=== PATIENT | male | born 1950 ===

== ENCOUNTER 2020-08-19 12:02 | Outpatient (REF) | payer MEDICARE, OTHER, SELFPAY ==
[2020-08-19 13:48] LABS: MANUAL DIFF FLAG NO
[2020-08-19 13:51] LABS: Creatinine Urine 95.04 mg/dL; Microalbum/Creatinine Ratio Ur 45.2 ug/mg cr
[2020-08-19 13:54] LABS: Basophils Percent Auto 0.5 % (0-2); Eosinophils Absolute Auto 0.1 X10*3/uL (0.0-0.4); Eosinophils Percent Auto 1.5 % (0-4); Hematocrit 41.6 % (42-52); Hemoglobin 13.5 g/dl (14.0-18.0); Imm Gran Abs Auto 0.02 X10*3/uL (0.00-0.03); Imm Gran Pct Auto 0.3 % (0.0-0.4); Lymphocytes Absolute Auto 2.1 X10*3/uL (1.2-4.9); Mean Corpuscular HGB Conc 32.5 g/dl (31.0-36.0); Mean Corpuscular Hemoglobin 29.1 pg (27.0-33.0); Mean Corpuscular Volume 89.7 fL (80-98); Mean Platelet Volume 10.7 fL (9.4-12.4); Monocytes Absolute Auto 0.6 X10*3/uL (0.1-1.2); Monocytes Percent Auto 9.2 % (2-11); Neutrophils Absolute Auto 3.7 X10*3/uL (2.0-8.3); Neutrophils Percent Auto 56.5 % (45-73); Platelet Count 288 X10*3/uL (160-400); Red Blood Count 4.64 X10*6/uL (4.60-5.80); Red Cell Distribution Width 13.3 % (11.0-16.0); White Blood Count 6.5 X10*3/uL (4.8-10.8)
[2020-08-19 14:31] LABS: Alanine Aminotransferase 29 U/L (0-40); Albumin Level 4.3 g/dL (3.5-5.0); Alkaline Phosphatase 187 U/L (39-117); Anion Gap 13 (12-20); Aspartate Amino Transferase 20 U/L (5-37); Bilirubin Total 0.5 mg/dL (0.0-1.0); Blood Urea Nitrogen 9 mg/dL (9-16); Calcium 9.3 mg/dL (8.4-10.2); Carbon Dioxide 25 mmol/L (22-29); Chloride 106 mmol/L (96-108); Cholesterol 134 mg/dL; Estimated Glomerular Filt Rate > 60; Glucose Random 222 mg/dL (60-115); HDL Cholesterol 34 mg/dL; LDL Cholesterol Calculated 78 mg/dl; Potassium 4.2 mmol/l (3.3-5.1); Sodium 140 mmol/L (135-145); Total Protein 7.3 g/dL (6.5-8.0); Triglycerides 113 mg/dL
[2020-08-19 14:53] LABS: Vitamin B12 419 pg/mL (200-900)
[2020-08-19 14:54] LABS: Vitamin D 25-OH Total 40.7 ng/mL (>30)
[2020-08-20 21:46] LABS: LDL Cholesterol Direct 78 mg/dL (<100)
== END 2020-08-19 12:03 | disposition home or self-care (01) ==
LOC: HO.10HDL 12:02
PROVIDERS: Visit Provider Internal Medicine Endocrinology, Diabetes & Metabolism
DX: E11.42 Type 2 diabetes mellitus with diabetic polyneuropathy (principal)
CPT/HCPCS: 36415; 80053; 80061; 82043; 82306; 82607; 83721; 85025

== ENCOUNTER → 2020-08-22 11:06 | Outpatient (BNVA) | payer MEDICARE, OTHER, SELFPAY | PROVIDERS: PCP Internal Medicine; Referring Provider Internal Medicine; Visit Provider Internal Medicine Endocrinology, Diabetes & Metabolism | DX: E11.65 Type 2 diabetes mellitus with hyperglycemia (principal); E11.21 Type 2 diabetes mellitus with diabetic nephropathy; E11.40 Type 2 diabetes mellitus with diabetic neuropathy, unspecified; E11.319 Type 2 diabetes mellitus with unspecified diabetic retinopathy without macular edema; Z79.4 Long term (current) use of insulin; I10 Essential (primary) hypertension; E55.9 Vitamin D deficiency, unspecified; E78.5 Hyperlipidemia, unspecified; Z89.512 Acquired absence of left leg below knee | CPT/HCPCS: 82947; 99214 ==

== ENCOUNTER → 2020-10-27 16:00 | Outpatient (BNV) | payer MEDICARE, OTHER, SELFPAY | PROVIDERS: Visit Provider Internal Medicine Medical Oncology | DX: C15.5 Malignant neoplasm of lower third of esophagus (principal) | CPT/HCPCS: 99214; 99443 ==

== ENCOUNTER → 2020-11-24 08:13 | Outpatient (BNVA) | payer MEDICARE, OTHER, SELFPAY | PROVIDERS: PCP Internal Medicine; Referring Provider Internal Medicine; Visit Provider Internal Medicine Endocrinology, Diabetes & Metabolism | DX: Z76.89 Persons encountering health services in other specified circumstances (principal) | CPT/HCPCS: Q3014 ==

== ENCOUNTER → 2021-03-30 09:46 | Outpatient (BNVA) | payer MEDICARE, OTHER, SELFPAY | PROVIDERS: PCP Internal Medicine; Visit Provider Internal Medicine Endocrinology, Diabetes & Metabolism | DX: E11.65 Type 2 diabetes mellitus with hyperglycemia (principal); E11.40 Type 2 diabetes mellitus with diabetic neuropathy, unspecified; E11.21 Type 2 diabetes mellitus with diabetic nephropathy; Z79.4 Long term (current) use of insulin; I10 Essential (primary) hypertension; E55.9 Vitamin D deficiency, unspecified; E78.5 Hyperlipidemia, unspecified; Z89.512 Acquired absence of left leg below knee | CPT/HCPCS: 82947; 99212 ==

== ENCOUNTER → 2021-07-06 09:57 | Outpatient (BNVA) | payer MEDICARE, OTHER, SELFPAY | PROVIDERS: PCP Internal Medicine; Visit Provider Internal Medicine | DX: E11.65 Type 2 diabetes mellitus with hyperglycemia (principal); Z79.4 Long term (current) use of insulin; E78.5 Hyperlipidemia, unspecified; I10 Essential (primary) hypertension; E55.9 Vitamin D deficiency, unspecified | CPT/HCPCS: 82947; 99212 ==

== ENCOUNTER 2021-10-07 09:32 | Outpatient (REF) | payer MEDICARE, OTHER, SELFPAY ==
--- NOTE | ~2021-10-07 | CT_ITS ---
EXAMINATION: CT CHEST WITH CONTRAST CLINICAL INFORMATION: Esophageal cancer COMPARISON: Previous chest CT scans most recent January 2020 TECHNIQUE: Multidetector volumetric CT imaging of the chest was obtained after the administration of 65 mL of Omnipaque 350 intravenous contrast without immediate adverse reactions. Axial MIP volume rendering provided. Sagittal and coronal reformatted images were obtained. This CT examination was performed using dose optimization techniques as appropriate, variously including the following: *Automated exposure control *Adjustment of mA and/or kV according to patient size (this includes techniques or standardized protocols for targeted exams where dose is matched to indication/reason for exam; i.e. extremities or head) *Use of iterative reconstruction technique DLP: 266 mGy-cm FINDINGS: LUNGS: Evaluation of the lungs is limited due to artifact from respiratory motion. There is a 3 mm calcified right upper lobe nodule axial image 108 series 5 that is stable. Other pulmonary nodules are not identified MEDIASTINUM: There is wall thickening of the distal thoracic esophagus and proximal/GE junction region and proximal stomach. This appears increased from previous exam. No enlarged lymph nodes are seen. The heart size is normal. There is coronary artery calcification. There is no pericardial effusion. PLEURA: There is no pleural effusion. No pleural mass or thickening. AXILLA: No lymphadenopathy. UPPER ABDOMEN: Wall thickening of the GE junction/proximal stomach. Atrophic changes of the pancreas. OSSEOUS STRUCTURES: There are degenerative changes of the spine. CT/CT chest w con IMPRESSION: Limited evaluation of pulmonary nodules due to artifact from respiratory motion. The 3 mm calcified right upper lobe nodule is stable. Other previously identified pulmonary nodules are not identified. Interval increase in wall thickening of the distal thoracic esophagus, GE junction and proximal stomach compared to January 2020 exam. Fleischner guidelines were followed.
[2021-10-07] MEDS: iohexoL 350 MG/ML 100 ML INFUS..BTL IV (10:56)
== END 2021-10-07 09:33 | disposition home or self-care (01) ==
LOC: HO.CT 09:32
PROVIDERS: Visit Provider Internal Medicine Medical Oncology
DX: C15.4 Malignant neoplasm of middle third of esophagus (principal)
CPT/HCPCS: 71260; Q9967

== ENCOUNTER 2021-11-17 07:51 | Day surgery (SDC) | payer MEDICARE, SELFPAY ==
[2021-11-16 07:46] VITALS: BMI 23.6
--- NOTE | 2021-11-16 09:01 | HO.ANESPROP2 ---
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 (Acute) Diabetic neuropathy (Acute) Benign essential hypertension (Acute) Type 2 diabetes mellitus with diabetic polyneuropathy (Acute) Keratotic lesion (Acute) Carcinoma of thoracic esophagus (Acute) Dyslipidemia (Acute) Vitamin D deficiency (Acute) 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 below-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 (Acute) Diabetic neuropathy associated with type 2 diabetes mellitus (Acute) Hypertension (Acute) Diabetic nephropathy associated with type 2 diabetes mellitus (Acute) Diabetes type 2, uncontrolled (Acute) Past Medical History Medical History Adenocarcinoma of cardio-esophageal junction Anxiety Benign essential hypertension Constipation Depression Diabetes type 2, uncontrolled Diabetic nephropathy associated with type 2 diabetes mellitus Diabetic neuropathy Diabetic neuropathy associated with type 2 diabetes mellitus Dyslipidemia HLD (hyperlipidemia) Hypertension Keratotic lesion Left below-knee amputee [employer]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 Surgical History Surgical History History of atherectomy History of left below knee amputation Status post below-knee amputation of left lower extremity Social History Social History Housing: Condominium Alcohol intake: former Patient Tobacco Use Status: Never used Tobacco Second Hand Smoke Exposure: Yes Advance Directives: Yes Advance Directives on File: Yes Advance Directives Date on File: 08/19/20 service: No Current occupational status: retired and disabled Meds Allergies Allergy/AdvReac Type Severity Reaction Status Date / Time No Known Allergies Allergy Verified 10/26/21 11:05 Home Medications Medication Instructions Recorded Confirmed Last Taken Type insulin aspar prot-insulin aspart See Rx Instructions SUBCUT BID ml 07/06/21 10/26/21 Unknown History 100 unit/mL (70-30) subcutaneous pen (Novolog Mix 70-30FlexPen U-100) Exam Exam Date and Time: November 16, 2021 0901 Height,Weight and Vital Signs: Height 5 ft 8 in Weight 70.307 kg Pertinent Lab Results Pertinent Lab Results: Laboratory Tests 09/28/21 09/28/21 09:27 09:27 WBC 11.0 H Hgb 13.9 L Hct 43.5 Plt Count 432 H Sodium 138 Potassium 4.6 Chloride 101 Carbon Dioxide 25 BUN 11 Creatinine 0.89 Assessment and Plan Assessment Anesthesia Assessment: Chart Reviewed Documented by User: Isabell Rodgers MD 11/17/21 08:04 [facility] Past Medical History Medical History Adenocarcinoma of cardio-esophageal junction Anxiety Benign essential hypertension Constipation Depression Diabetes type 2, uncontrolled Diabetic nephropathy associated with type 2 diabetes mellitus Diabetic neuropathy Diabetic neuropathy associated with type 2 diabetes mellitus Dyslipidemia HLD (hyperlipidemia) Hypertension Keratotic lesion Left below-knee amputee 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 Family history of problems with anesthesia: No Surgical History Surgical History History of atherectomy History of left below knee amputation Status post below-knee amputation of left lower extremity History of Problems with Anesthesia: No Social History Social History Housing: Condominium Alcohol intake: former Patient Tobacco Use Status: Never used Tobacco Second Hand Smoke Exposure: Yes Advance Directives: Yes Advance Directives on File: Yes Advance Directives Date on File: 08/19/20 service: No Current occupational status: retired and disabled Meds Allergies Allergy/AdvReac Type Severity Reaction Status Date / Time No Known Allergies Allergy Verified 10/26/21 11:05 Home Medications Medication Instructions Recorded Confirmed Last Taken Type insulin aspar prot-insulin aspart See Rx Instructions SUBCUT BID ml 07/06/21 10/26/21 Unknown History 100 unit/mL (70-30) subcutaneous pen (Novolog Mix 70-30FlexPen U-100) Exam Airway Mallampati Class: II TM Dist: >3cm Neck ROM: Full Heart: RRR Lungs: CTA Assessment and Plan Final Anesthetic Review Family History of Problems with Anesthesia: No History of Problems with Anesthesia: No NPO: Yes ASA Class: III Final Preanesthetic Review: No Changes in Pt Med Stat, Meds/Allgs Chart Reviewed, Consent Obtained/Reviewed and Anes Risks/Benef Reviewed Patient Risk: Low Procedure Risk: Low Anesthetic Plan Anesthetic Plan: MAC: Disposition: Standard PACU
[2021-11-17 07:59] VITALS: BP 114/74; PULSE 112; RESP 18; TEMP 36.1; O2SAT 97
[2021-11-17 08:08] LABS: Glucose, Whole Blood 153 mg/dL (60-115)
[2021-11-17] MEDS: Lactated Ringers 1,000 ML 100 ML IVCONT (08:23)
--- NOTE | 2021-11-17 08:42 | MHC.SHP ---
Pre-Procedural Eval Section A Date of Service: 11/17/21 The patient is an INPATIENT: No Changes since office visit: No Cold of Flu in the past 2 weeks, No New Medical Problems, No Changes in Medication and No Patient answered all questions The History & Physical has been completed within 30 days and I have reviewed it.: Yes Section B Chief Complaint: abnormal findings Allergies: Allergies Allergy/AdvReac Type Severity Reaction Status Date / Time No Known Allergies Allergy Verified 10/26/21 11:05 Plan I have reviewed the history and physical and performed a pertinent physical examination on my patient. No changes have occurred unless specified.
[2021-11-17 09:10] VITALS: BP 95/55; PULSE 83; RESP 16; TEMP 36.2; O2SAT 99
--- NOTE | 2021-11-17 09:11 | PM.OP ---
Brief Operative Note Date of Service: 11/17/21 Pre-op diagnosis: abnl ct, adenoca esophagus Post-op diagnosis: same Procedure: EGD Surgeon: Tahir Mancini Was an Magician/Illusionist used for this Procedure?: No Estimated blood loss (mL): 5 Pathology: other (bxs egj mass, 36cm, 34 cm) Condition: stable Disposition: PACU
[2021-11-17 09:25] VITALS: BP 129/79; PULSE 94; RESP 17; TEMP 36.2; O2SAT 97
--- NOTE | 2021-11-17 09:59 | OP_ITS ---
SURGEON: Tahir Mancini MD INDICATIONS: Abnormal CT scan of the esophagus and history of esophageal adenocarcinoma. PREOPERATIVE DIAGNOSIS: POSTOPERATIVE DIAGNOSIS: PROCEDURE PERFORMED: ESTIMATED BLOOD LOSS: COMPLICATIONS: ANESTHESIA: ASSISTANTS: SPECIMENS: PROCEDURE: Upper endoscopy with biopsy. MEDICATIONS: Monitored anesthesia care. DESCRIPTION OF PROCEDURE: History and physical was performed. The risks and benefits of the procedure were explained to the patient. Informed consent was obtained. The patient was placed in the left lateral decubitus position. The Olympus video gastroscope was introduced into the esophagus, stomach, and duodenum. Examination was performed. The scope was removed. He tolerated the procedure well and was taken to Recovery in stable condition. FINDINGS: Esophagus: There was ulceration and friability with heaped up mucosa beginning at about 34 cm and extending to the EG junction at 36 cm and into the stomach for approximately 1 cm to 2 cm below this. Biopsies were obtained from the abnormal mucosa. The mucosa was ulcerated and friable with heaped up margins suspicious for recurrent tumor as opposed to just changes from his previous chemoradiation treatments. The scope was easily passed into the stomach with minimal narrowing at the EG junction. Stomach: The stomach showed no evidence of masses, ulcers, or polyps. Duodenum: The bulb and second portion were normal. Biopsies were obtained on retroflexed view from the mass at the EG junction extending into the stomach and at 36 and 34 cm. IMPRESSION: 1. Abnormal CT scan of the esophagus. 2. Esophageal adenocarcinoma. RECOMMENDATION: Follow up the biopsy results. MD PATRICA Ortega/LUÍS / [id number]
--- NOTE | 2021-11-17 12:51 | HO.POSTANES ---
Post Anesthesia Evaluation Post Anesthesia Evaluation Vital Signs: Vital Signs Temp Pulse Resp BP Pulse Ox 11/17/21 09:25 97.2 F 94 17 129/79 97 11/17/21 09:10 97.2 F 83 16 95/55 L 99 11/17/21 07:59 97 F 112 H 18 114/74 97 Anesthesia: Monitored Mental Status: Awake Pain Control: Satisfactory Nausea/Vomiting: None Hydration: Adequate Anesthesia-Related Issues: No Anes. Related Issues
== END 2021-11-17 10:40 | disposition home or self-care (01) ==
PROVIDERS: Visit Provider Internal Medicine Gastroenterology
PROC: 0DJ08ZZ Inspection of Upper Intestinal Tract, Via Natural or Artificial Opening Endoscopic (ICD-10-PCS; CPT 43235; principal; 2021-11-17 08:50)
DX: C15.8 Malignant neoplasm of overlapping sites of esophagus (principal); Z85.01 Personal history of malignant neoplasm of esophagus; Z92.21 Personal history of antineoplastic chemotherapy; Z92.3 Personal history of irradiation; Z77.22 Contact with and (suspected) exposure to environmental tobacco smoke (acute) (chronic); K21.9 Gastro-esophageal reflux disease without esophagitis; I10 Essential (primary) hypertension; I73.9 Peripheral vascular disease, unspecified; E11.40 Type 2 diabetes mellitus with diabetic neuropathy, unspecified; E11.21 Type 2 diabetes mellitus with diabetic nephropathy; E55.9 Vitamin D deficiency, unspecified; Z79.4 Long term (current) use of insulin; Z79.899 Other long term (current) drug therapy; Z89.512 Acquired absence of left leg below knee
CPT/HCPCS: 43239; 36415; 82947; 88305; 88360

== ENCOUNTER → 2021-11-27 10:44 | Outpatient (BNVA) | payer MEDICARE, SELFPAY | PROVIDERS: PCP Internal Medicine; Visit Provider Surgery | DX: C16.0 Malignant neoplasm of cardia (principal); Z79.899 Other long term (current) drug therapy; Z79.4 Long term (current) use of insulin | CPT/HCPCS: 99212 ==

== ENCOUNTER 2021-12-03 06:52 | Day surgery (SDC) | payer MEDICARE, SELFPAY ==
--- NOTE | ~2021-12-03 | IR_ITS ---
PROCEDURE: IR INSERTION OF TUNNEL CATHETER CLINICAL INFORMATION: Carcinoma of the esophagus. Needs long-term chemotherapy. COMPARISON: None TECHNIQUE: Following explaining fluoroscopy and ultrasound-guided tunnel catheter placement of the right Port-A-Cath procedure, benefits and risks, a written consent was obtained. Preliminary ultrasound imaging was obtained through the right neck and optimal site was selected along the lower right anterolateral neck and marked. The marked site and the anterior chest wall right side was cleaned and draped in the usual sterile manner. 1% lidocaine was injected along the right anterior neck. Under sterile ultrasound guidance a single wall needle was advanced and right jugular vein was punctured. After obtaining venous return a thin guidewire was obtained through the single wall needle and needle withdrawn. A 5 Canadian dilator was inserted over the guidewire. The guidewire and the dilator were anchored to the patient's sterile drape. Approximately 1 gauze-length inferolaterally along the right anterior chest wall was marked and 1% lidocaine was injected. A small skin incision was performed and blunt dissection was performed inferior to the skin incision. A Port-A-Cath placement trial into the pocket was performed. More blunt dissection was performed. The port chamber was then anchored in the pocket with two 2-0 nonabsorbable nylon sutures. 1% lidocaine was then inserted from the dissected pocket to the right anterior neck chest wall through a long needle. A blunt tunneler attached to the catheter which was attached to the port chamber was then tunneled through the right anterior chest wall to the right anterior neck incision and pulled through the right anterior neck incision. This catheter was sized to 20 cm long. The guidewire along the right neck was removed and a 0.035 J-wire was inserted under fluoroscopy and extending to the IVC and the 5 Canadian dilator was removed. A 7 Canadian dilator with peel-away sheath was inserted over the guidewire under fluoroscopy. The guidewire and the dilator were removed and precut catheter was inserted through the peel-away sheath. The peel-away sheath was removed as the catheter was advanced. The peel-away sheath was completely removed and a single image was obtained over the right anterior chest wall confirming position of the catheter tip. The Port-A-Cath was flushed with saline before insertion and after incision. Lastly 400 units of heparin was injected through the port chamber. The chest wall incision was sutured in two layers with 3-0 absorbable sutures along the subcutaneous/adipose tissue and skin layer. A Dermabond was applied over the skin for more adhesion of the skin suture site. A solitary 3-0 nonabsorbable suture was placed along the right anterior neck incision. Sterile Band-Aid applied postprocedure at both sites. Patient tolerated procedure extremely well. IV conscious sedation was administered during the exam and patient monitored for 45 minutes. All elements of maximal sterile barrier technique followed including use of cap, mask, sterile gown, sterile gloves, a sterile full body drape and hand hygiene. Also followed skin preparation with 2% chlorhexidine for cutaneous antisepsis, and sterile ultrasound preparation with sterile gel and probe cover when applicable. FINDINGS: On preliminary ultrasound imaging there is a widely patent right jugular vein. Approximately 21 cm along 6.6 Canadian tunneled port catheter was inserted from the right anterior chest wall through the right jugular vein into the SVC. The tip of the catheter lies in the mid SVC. 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 The catheter is ready for use. Fluoroscopy Time: 0.6 minutes. Dose Area Product: 118 cGy/cm2
[2021-12-03 07:13] VITALS: BMI 22.0
[2021-12-03 07:18] LABS: MANUAL DIFF FLAG NO
[2021-12-03 07:20] LABS: Basophils Percent Auto 0.3 % (0-2); Eosinophils Absolute Auto 0.2 X10*3/uL (0.0-0.4); Hematocrit 40.6 % (42.0-52.0); Hemoglobin 12.7 g/dl (14.0-18.0); Imm Gran Abs Auto 0.02 X10*3/uL (0.00-0.03); Imm Gran Pct Auto 0.2 % (0.0-0.4); Lymphocytes Absolute Auto 3.8 X10*3/uL (1.2-4.9); Lymphocytes Percent Auto 37.9 % (20-40); Mean Corpuscular HGB Conc 31.3 g/dl (31.0-36.0); Mean Corpuscular Hemoglobin 27.4 pg (27.0-33.0); Mean Corpuscular Volume 87.5 fL (80.0-98.0); Mean Platelet Volume 9.6 fL (9.4-12.4); Monocytes Absolute Auto 0.9 X10*3/uL (0.1-1.2); Monocytes Percent Auto 9.2 % (2-11); Neutrophils Absolute Auto 5.1 x10*3/uL (2.0-8.3); Neutrophils Percent Auto 50.4 % (45-73); Platelet Count 452 X10*3/uL (160-400); Red Blood Count 4.64 X10*6/uL (4.60-5.80); Red Cell Distribution Width 14.5 % (11.0-16.0)
[2021-12-03 07:38] LABS: INTERNATIONAL NORM RATIO 1.2 (0.9-1.1); Prothrombin Time 13.8 SEC (9.9-13.0)
[2021-12-03 07:38] LABS: Glucose, Whole Blood 174 mg/dL (60-115)
[2021-12-03 07:41] LABS: Partial Thromboplastin Time 32.1 SEC (24.1-38.0)
[2021-12-03] MEDS: Lidocaine HCl 1%/Epi 1:100,000 20 ML VIAL 10 ML INFILTRATI (09:40)
[2021-12-03 10:25] VITALS: BP 123/71; PULSE 93; RESP 16; TEMP 36.6; O2SAT 99
[2021-12-03 10:40] VITALS: BP 106/61; PULSE 94; RESP 16; O2SAT 99
[2021-12-03 10:55] VITALS: BP 113/61; PULSE 93; RESP 16; O2SAT 99
[2021-12-03 11:20] VITALS: BP 121/69; PULSE 93; RESP 16; O2SAT 99
[2021-12-03 11:50] VITALS: BP 121/69; PULSE 94; RESP 16; TEMP 36.6; O2SAT 99
== END 2021-12-03 12:11 | disposition home or self-care (01) ==
PROVIDERS: Radiology Diagnostic Radiology; Visit Provider Radiology Diagnostic Radiology
DX: Z45.2 Encounter for adjustment and management of vascular access device (principal); C15.4 Malignant neoplasm of middle third of esophagus; R91.1 Solitary pulmonary nodule; I10 Essential (primary) hypertension; E55.9 Vitamin D deficiency, unspecified; E78.5 Hyperlipidemia, unspecified; E11.21 Type 2 diabetes mellitus with diabetic nephropathy; E11.42 Type 2 diabetes mellitus with diabetic polyneuropathy; Z79.4 Long term (current) use of insulin; Z79.899 Other long term (current) drug therapy; Z89.512 Acquired absence of left leg below knee
CPT/HCPCS: 36415; 36561; 76937; 82947; 85025; 85610; 85730; 99152; 99153; C1769; C1788; J0690; J1642; J2250; J3010

== ENCOUNTER 2022-01-01 09:37 | Outpatient (REF) | payer MEDICARE, SELFPAY ==
[2022-01-01 10:44] LABS: Estimated Average Glucose 200 mg/dL; Hemoglobin A1c % 8.6 %
[2022-01-01 11:02] LABS: Alanine Aminotransferase 63 U/L (0-40); Albumin Level 3.8 g/dL (3.5-5.0); Alkaline Phosphatase 180 U/L (39-117); Anion Gap 13 (12-20); Aspartate Amino Transferase 56 U/L (5-37); Bilirubin Total 0.7 mg/dL (0.0-1.0); Blood Urea Nitrogen 10 mg/dL (9-16); Calcium 9.3 mg/dL (8.4-10.2); Carbon Dioxide 29 mmol/L (22-29); Chloride 103 mmol/L (96-108); Cholesterol 168 mg/dL; Estimated Glomerular Filt Rate > 60; Glucose Random 221 mg/dL (60-115); HDL Cholesterol 40 mg/dL; LDL Cholesterol Calculated 107 mg/dl; Potassium 4.5 mmol/L (3.3-5.1); Sodium 140 mmol/L (135-145); Triglycerides 105 mg/dL
[2022-01-01 11:17] LABS: Creatinine Urine 70.37 mg/dL
[2022-01-01 11:25] LABS: Vitamin D 25-OH Total 52.2 ng/mL (>30)
[2022-01-03 03:02] LABS: LDL Cholesterol Direct 105 mg/dL (<100)
== END 2022-01-01 09:38 | disposition home or self-care (01) ==
LOC: HO.LAB 09:37
PROVIDERS: PCP Internal Medicine; Visit Provider Internal Medicine
DX: E11.65 Type 2 diabetes mellitus with hyperglycemia (principal); E55.9 Vitamin D deficiency, unspecified
CPT/HCPCS: 36415; 80053; 80061; 82043; 82306; 83036; 83721

== ENCOUNTER 2022-01-17 12:50 | Inpatient (IN) | payer MEDICARE, SELFPAY ==
--- NOTE | ~2022-01-17 | XR_ITS ---
EXAMINATION: XR CHEST CLINICAL INFORMATION: Sepsis COMPARISON: CT chest 10/07/2021, chest radiograph 08/17/2019, PET/CT 06/07/2019 TECHNIQUE: Frontal view of the chest was obtained. FINDINGS: A new right chest wall IJ port is present with its tip in the SVC. There is a rounded area of calcification seen overlying the right lateral neck which may be related to rotator cuff calcification which can be appreciated on the prior PET/CT. No significant abnormality is noted involving the heart, lungs, mediastinum, bony thorax or soft tissues to account for the patient's sepsis. XR/XR chest 1V IMPRESSION: No acute intrathoracic disease.
[2022-01-17 13:07] VITALS: BP 118/76; PULSE 129; RESP 20; TEMP 37.5; O2SAT 98; BMI 22.6
--- NOTE | 2022-01-17 13:30 | ECG_ITS ---
Test Reason : chest discomfort Blood Pressure : / mmHG Vent. Rate : 120 BPM Atrial Rate : 120 BPM P-R Int : 128 ms QRS Dur : 078 ms QT Int : 304 ms P-R-T Axes : 080 -09 120 degrees QTc Int : 429 ms Sinus tachycardia Low voltage QRS Inferior infarct , age undetermined Possible Anterolateral infarct , age undetermined Nonspecific ST elevation Anteroseptal leads Nonspecific ST abnormality Abnormal ECG When compared with ECG of 08-SEP-2019 19:13, Inferior infarct is now Present Nonspecific T wave abnormality has replaced inverted T waves in Inferior leads Referred By: Lisa Blas Electronically Signed By:PAOLA SWARTZ MD
--- NOTE | 2022-01-17 14:03 | ED_ITS ---
HPI - General Adult General Chief complaint: General Medical Stated complaint: uti Time Seen by Provider: 01/17/22 13:01 Source: patient, family and manufacturing worker Mode of arrival: wheelchair Limitations: language barrier History of Present Illness HPI narrative: 71-year-old male with a history of high cholesterol, depression, anxiety, constipation, hypertension, diabetes, known recurrent esophageal cancer being followed by Dr. Anna currently receiving chemotherapy every other week (folfox-last dose 01/12) here with reports of dysuria, urine dribbling small amounts since last evening. Patient denies any fevers, chills, vomiting, abdominal pain, back pain, weakness. Related Data Home Medications Medication Instructions Recorded Confirmed insulin aspar prot-insulin aspart 30 unit SUBCUT DAILY@0730 ml 07/06/21 01/17/22 100 unit/mL (70-30) subcutaneous pen (Novolog Mix 70-30FlexPen U-100) atorvastatin 40 mg tablet 40 mg PO BEDTIME 01/17/22 01/17/22 docusate sodium 100 mg capsule 200 mg PO BEDTIME 01/17/22 01/17/22 insulin aspar prot-insulin aspart 22 unit SUBCUT DAILY@1700 01/17/22 01/17/22 100 unit/mL (70-30) subcutaneous pen (Novolog Mix 70-30FlexPen U-100) losartan 100 mg tablet 100 mg PO BEDTIME 01/17/22 01/17/22 omeprazole 20 mg capsule,delayed 20 mg PO BID@0630,1630 01/17/22 01/17/22 release Previous Rx's Medication Instructions Recorded blood sugar diagnostic (FreeStyle #25 ea 08/22/20 Precision Octavio Strips) flash glucose scanning reader #1 ea 08/22/20 (FreeStyle [place] 2 [place]) metoprolol succinate 25 mg 12.5 mg PO DAILY 90 Days #45 tab 02/24/21 tablet,extended release 24 hr flash glucose sensor (FreeStyle #2 ea 03/30/21 Ante 2 Sensor) cholecalciferol (vitamin D3) 25 25 mcg PO DAILY 90 Days #90 cap 06/09/21 mcg (1,000 unit) capsule (Vitamin D3) ferrous sulfate 325 mg (65 mg 325 mg PO DAILY 90 Days #90 tab 06/09/21 iron) tablet lancets 33 gauge (TRUEplus Lancets) #100 ea 06/10/21 pen needle, diabetic 32 gauge x #100 ea 06/10/21 (Pentips) blood sugar diagnostic (FreeStyle #150 ea 06/16/21 Lite Strips) lancets 28 gauge (FreeStyle #200 ea 06/16/21 Lancets) metformin 500 mg tablet,extended 1,000 mg PO BID 30 Days #120 tab 07/06/21 release 24 hr mirtazapine 30 mg tablet 30 mg PO BEDTIME #90 tab 08/24/21 tramadol 50 mg tablet 50 mg PO Q6-8H PRN 30 Days #120 tab 11/16/21 gabapentin 100 mg capsule 200 mg PO BEDTIME #180 cap 11/23/21 ondansetron 8 mg disintegrating 8 mg PO Q8H PRN #60 tab 12/10/21 tablet lorazepam 0.5 mg tablet 0.5 mg PO Q8H PRN 30 Days #90 tab 12/11/21 Allergies Allergy/AdvReac Type Severity Reaction Status Date / Time No Known Allergies Allergy Verified 01/17/22 13:12 Review of Systems Review of Systems: Yes all other systems are reviewed and are negative Constitutional: Constitutional: Reports no additional constitutional complaints, Denies body ache(s), Denies chills, Denies fever(s), Denies headache(s) and Denies weakness Eyes: Eyes: Reports no additional eye complaints and Denies change in vision ENT: Reports system reviewed and no additional complaints, except as documented, Denies dizziness, Denies headache(s), Denies nasal congestion, Denies nasal discharge and Denies neck pain Cardiovascular: Cardiovascular: Reports no additional cardiovascular complaints, Denies chest pain, Denies leg edema and Denies dyspnea Respiratory: Respiratory: Reports no additional respiratory complaints, Denies cough and Denies dyspnea Gastrointestinal: Gastrointestinal: Reports no additional gastrointestinal complaints, Denies abdominal pain, Denies diarrhea, Denies nausea and Denies vomiting Genitourinary: Genitourinary: Reports difficulty urinating, Reports dysuria, Denies flank pain, Denies testicular pain, Reports urinary hesitancy, Denies urinary incontinence and Denies urinary urgency Musculoskeletal: Musculoskeletal: Reports no additional musculoskeletal complaints, Denies back pain, Denies arthralgias, Denies joint swelling, Denies neck pain, Denies numbness and Denies tingling Integumentary/Breasts: Skin/Breast: Reports system reviewed and no additional complaints, except as docu and Denies rash Neurologic: Reports system reviewed and no additional complaints, except as documented, Denies dizziness, Denies headache(s), Denies numbness, Denies tingling and Denies weakness PMFSH Past Medical History Attestation statement: The following information was validated with the patient. Source: old records reviewed and nursing notes reviewed Medical History Adenocarcinoma of cardio-esophageal junction Anxiety Benign essential hypertension Constipation Depression Diabetes type 2, uncontrolled Diabetic nephropathy associated with type 2 diabetes mellitus Diabetic neuropathy Diabetic neuropathy associated with type 2 diabetes mellitus Dyslipidemia HLD (hyperlipidemia) Hypertension Keratotic lesion Left below-knee amputee senior care (current) use of insulin Pure hypercholesterolemia Type 2 diabetes mellitus with diabetic polyneuropathy Vitamin D deficiency Surgical History History of atherectomy History of left below knee amputation Status post below-knee amputation of left lower extremity Family History Family History Father Diabetes Hypertension Mother No problems noted. Social History Social History Housing: Condominium Alcohol intake: never Patient Tobacco Use Status: Never used Tobacco Second Hand Smoke Exposure: Yes Use of substances other than those prescribed or required for medical reasons: No Advance Directives: No Advance Directives Information Provided: No Advance Directives Date on File: 08/19/20 service: No Current occupational status: retired and disabled Physical Exam ED Vital Signs: Vital Signs - 24 hr 01/17/22 13:07 01/17/22 14:08 Temperature 99.5 F Pulse Rate 129 H 113 H Respiratory Rate 20 21 H Blood Pressure 118/76 118/71 Pulse Oximetry 98 98 BMI result Body Mass Index 22.6 Const General: cooperative, healthy appearing, comfortable and no acute distress Orientation/consciousness: patient oriented x3 Limitations: no limitations HENMT Head: Yes normal to inspection Ears: hearing grossly normal bilaterally and TM's normal bilaterally General nose exam: Normal external nose present Face and sinus: Yes normal facial exam Mouth: Normal oral and palatal mucosa present Teeth and gingiva: dentition normal Throat: Yes posterior oropharynx normal and Yes tonsils normal Eyes General: appearance normal, both eyes and all related structures Pupils: Equal, round and reactive pupils present Neck Neck: Yes normal visual inspection, Yes full ROM, Yes no lymphadenopathy and Yes no meningeal signs Chest Chest palpation & inspection: normal inspection of the chest Resp Effort & Inspection: normal respiratory effort Auscultation: clear to auscultation bilaterally Cardio Rate: tachycardic Rhythm: regular rhythm Peripheral pulses: Peripheral pulses 2+ throughout GI Inspection: Yes normal to inspection Palpation (GI): Soft to palpation and nontender General: Yes no CVA tenderness Back/Spine/Pelvis Back: no CVA tenderness Skin General skin exam: no rashes or lesions noted Neuro General: patient oriented x3, moves all extremities and no meningeal signs Cranial nerves: Yes CN's II-XII intact bilaterally, Yes Equal, round and reactive pupils present, Yes Bilaterally intact EOM present, Yes Nystagmus not present, Yes Normal facial strength present and Yes Midline tongue present Cognition (Neuro): normal cognition Gait exam (Neuro): Normal gait present Motor exam (neuro): 5/5 motor strength present throughout Sensory Exam: Normal double simultaneous stimulation for sensation Extrem General: Yes normal to inspection, Yes no pedal edema and Yes no calf tenderness Course Course Course Narrative: 1415-EKG shows sinus tachycardia with 1mm elevations of V1-V3 with normal troponin and no reports of chest pain. [id number] year old male currently receiving chemotherapy for esophageal cancer here with reports of dysuria, voiding small amounts of urine since last night. On arrival the patient is noted to be tachycardic, tachypneic with a low-grade fever. He has no reports of abdominal pain, fever at home, vomiting, back pain. Due to history of immuno suppression patient will require labs including blood cultures and lactic acid. Will check UA, EKG due to tachycardia. At this times infection is suspected. Antibiotics ordered -reviewed labs which show leukocytosis. Elevated lactic acid. UA consistent with a UTI. This is likely the source of infection. Antibiotics have been ordered. Plan for admission. Discussed with medicine who accepted admission. Medical Decision Making Medical Records Medical records reviewed: Yes I reviewed the patient's medical records. Lab Data Lab results reviewed: Yes I reviewed the patient's lab results. Result diagrams: 01/17/22 14:08 01/17/22 14:08 Labs: Lab Results 01/17/22 01/17/22 01/17/22 Range/Units 14:08 14:08 14:08 WBC 46.7 H* (4.8-10.8) X10*3/uL RBC 4.40 L (4.60-5.80) X10*6/uL Hgb 11.9 L (14.0-18.0) g/dl Hct 37.0 L (42.0-52.0) % MCV 84.1 (80.0-98.0) fL MCH 27.0 (27.0-33.0) pg MCHC 32.2 (31.0-36.0) g/dl RDW 16.4 H (11.0-16.0) % Plt Count 214 D (160-400) X10*3/uL MPV 10.4 (9.4-12.4) fL Immature Gran % (Auto) Cancelled Neut % (Auto) Cancelled Lymph % (Auto) Cancelled [place] % (Auto) Cancelled Eos % (Auto) Cancelled Baso % (Auto) Cancelled Lymph # (Auto) Cancelled [place] # (Auto) Cancelled Eos # (Auto) Cancelled Baso # (Auto) Cancelled Abs Immat Gran (auto) Cancelled Absolute Neuts (auto) Cancelled Absolute Nucleated RBC 0.000 (0.0-0.012) X10*3/uL Nucleated RBC % (auto) 0.0 (0.0-0.2) /100WBC Neutrophils % (Manual) 83 H (45-73) % Band Neutrophils % 7 H (3-5) % Lymphocytes % (Manual) 4 L (20-40) % Monocytes % (Manual) 4 (2-11) % Eosinophils % (Manual) 1 (0-4) % Metamyelocytes % 1 % Abs Neuts (Manual) 42.0 H (2.0-8.3) X10*3/uL Lymphocytes # (Manual) 1.9 (1.2-4.9) X10*3/uL Monocytes # (Manual) 1.9 H (0.1-1.2) X10*3/uL Eosinophils # (Manual) 0.5 H (0.0-0.4) X10*3/uL Metamyelocytes # 0.5 X10*3/uL Toxic Vacuolation PRESENT Platelet Estimate NORMAL (NORMAL) Plt Morphology Comment NORMAL RBC Morphology NORMAL Sodium 136 (135-145) mmol/L Potassium 4.0 (3.3-5.1) mmol/L Chloride 101 (96-108) mmol/L Carbon Dioxide 28 (22-29) mmol/L Anion Gap 11 L (12-20) BUN 13 (9-16) mg/dL Creatinine 0.73 (0.5-1.4) mg/dL Estim Creat Clear Calc 85.7 Estimated GFR > 60 Random Glucose 295 H (60-115) mg/dL Lactic Acid 2.7 H* (0.5-2.0) mmol/L Calcium 8.9 D (8.4-10.2) mg/dL Total Bilirubin 0.7 (0.0-1.0) mg/dL Direct Bilirubin 0.3 (0.0-0.5) mg/dL AST 30 (5-37) U/L ALT 23 (0-40) U/L Alkaline Phosphatase 256 H D (39-117) U/L Troponin I High Sens (<3.5-35.0) ng/L Total Protein 6.7 (6.5-8.0) g/dL Albumin 3.5 (3.5-5.0) g/dL Urine Color Urine Appearance Urine pH (5.0-8.0) Ur Specific [place] (1.005-1.025) Urine Protein (NEG-TRACE) MG/DL Urine Glucose (UA) (NEG) MG/DL Urine Ketones (NEG) MG/DL Urine Blood (NEG) Urine Nitrite (NEG) Ur Leukocyte Esterase (NEG) Urine RBC (0) /HPF Urine WBC (0-4) /HPF Ur Squamous Epith Cells /LPF Urine Bacteria /LPF 01/17/22 01/17/22 Range/Units 14:08 14:18 WBC (4.8-10.8) X10*3/uL RBC (4.60-5.80) X10*6/uL Hgb (14.0-18.0) g/dl Hct (42.0-52.0) % MCV (80.0-98.0) fL MCH (27.0-33.0) pg MCHC (31.0-36.0) g/dl RDW (11.0-16.0) % Plt Count (160-400) X10*3/uL MPV (9.4-12.4) fL Immature Gran % (Auto) Neut % (Auto) Lymph % (Auto) [place] % (Auto) Eos % (Auto) Baso % (Auto) Lymph # (Auto) [place] # (Auto) Eos # (Auto) Baso # (Auto) Abs Immat Gran (auto) Absolute Neuts (auto) Absolute Nucleated RBC (0.0-0.012) X10*3/uL Nucleated RBC % (auto) (0.0-0.2) /100WBC Neutrophils % (Manual) (45-73) % Band Neutrophils % (3-5) % Lymphocytes % (Manual) (20-40) % Monocytes % (Manual) (2-11) % Eosinophils % (Manual) (0-4) % Metamyelocytes % % Abs Neuts (Manual) (2.0-8.3) X10*3/uL Lymphocytes # (Manual) (1.2-4.9) X10*3/uL Monocytes # (Manual) (0.1-1.2) X10*3/uL Eosinophils # (Manual) (0.0-0.4) X10*3/uL Metamyelocytes # X10*3/uL Toxic Vacuolation Platelet Estimate (NORMAL) Plt Morphology Comment RBC Morphology Sodium (135-145) mmol/L Potassium (3.3-5.1) mmol/L Chloride (96-108) mmol/L Carbon Dioxide (22-29) mmol/L Anion Gap (12-20) BUN (9-16) mg/dL Creatinine (0.5-1.4) mg/dL Estim Creat Clear Calc Estimated GFR Random Glucose (60-115) mg/dL Lactic Acid (0.5-2.0) mmol/L Calcium (8.4-10.2) mg/dL Total Bilirubin (0.0-1.0) mg/dL Direct Bilirubin (0.0-0.5) mg/dL AST (5-37) U/L ALT (0-40) U/L Alkaline Phosphatase (39-117) U/L Troponin I High Sens 7.5 (<3.5-35.0) ng/L Total Protein (6.5-8.0) g/dL Albumin (3.5-5.0) g/dL Urine Color YELLOW Urine Appearance CLOUDY Urine pH 6.0 (5.0-8.0) Ur Specific [place] 1.015 (1.005-1.025) Urine Protein TRACE (NEG-TRACE) MG/DL Urine Glucose (UA) >=1000 H (NEG) MG/DL Urine Ketones NEG (NEG) MG/DL Urine Blood 1+ H (NEG) Urine Nitrite NEG (NEG) Ur Leukocyte Esterase 2+ H (NEG) Urine RBC 1-4 (0) /HPF Urine WBC 76-150 H (0-4) /HPF Ur Squamous Epith Cells NONE /LPF Urine Bacteria 2+ /LPF Discharge Plan Discharge Clinical Impression: Acute UTI, Leukocytosis, Elevated lactic acid level Patient Disposition: Admitted As Inpatient
[2022-01-17 14:08] VITALS: BP 118/71; PULSE 113; RESP 21; O2SAT 98
[2022-01-17 14:14] LABS: Hemoglobin 11.9 g/dl (14.0-18.0); Mean Corpuscular HGB Conc 32.2 g/dl (31.0-36.0); Mean Corpuscular Volume 84.1 fL (80.0-98.0); Mean Platelet Volume 10.4 fL (9.4-12.4); Platelet Count 214 X10*3/uL (160-400); Red Cell Distribution Width 16.4 % (11.0-16.0)
[2022-01-17] MEDS: 0.9 % Sodium Chloride 1,000 ML 999 ML IV (14:15)
[2022-01-17 14:19] LABS: White Blood Count 46.7 X10*3/uL (4.8-10.8)
[2022-01-17 14:24] LABS: Appearance Urine CLOUDY; Color Urine YELLOW; Glucose Urine UA >=1000 MG/DL (NEG); Leukocyte Esterase Urine 2+ (NEG); Nitrite Urine NEG (NEG); Specific Gravity - Urine 1.015 (1.005-1.025); UACC Culture Trigger YES; Urine Blood 1+ (NEG); Urine Ketones NEG (NEG); Urine Protein TRACE MG/DL (NEG-TRACE)
[2022-01-17 14:29] LABS: Lactic Acid 2.7 mmol/L (0.5-2.0)
[2022-01-17 14:33] LABS: Band Neutrophils Percent 7 % (3-5); Eosinophils Absolute Manual 0.5 X10*3/uL (0.0-0.4); Eosinophils Percent Manual 1 % (0-4); Lymphocytes Absolute Manual 1.9 X10*3/uL (1.2-4.9); Lymphocytes Percent Manual 4 % (20-40); Metamyelocytes Absolute 0.5 X10*3/uL; Metamyelocytes Percent 1 %; Monocytes Absolute Manual 1.9 X10*3/uL (0.1-1.2); Monocytes Percent Manual 4 % (2-11); Neutrophils Percent Manual 83 % (45-73)
[2022-01-17 14:34] LABS: Alanine Aminotransferase 23 U/L (0-40); Albumin Level 3.5 g/dL (3.5-5.0); Alkaline Phosphatase 256 U/L (39-117); Anion Gap 11 (12-20); Aspartate Amino Transferase 30 U/L (5-37); Bilirubin Direct 0.3 mg/dL (0.0-0.5); Bilirubin Total 0.7 mg/dL (0.0-1.0); Blood Urea Nitrogen 13 mg/dL (9-16); Calcium 8.9 mg/dL (8.4-10.2); Carbon Dioxide 28 mmol/L (22-29); Chloride 101 mmol/L (96-108); Creatinine Clr Calc Pharmacy 85.7; Estimated Glomerular Filt Rate > 60; Glucose Random 295 mg/dL (60-115); Sodium 136 mmol/L (135-145); Total Protein 6.7 g/dL (6.5-8.0); Toxic Vacuolation PRESENT
[2022-01-17 14:35] LABS: Platelet Estimate NORMAL (NORMAL); Platelet Morphology Comment NORMAL; RBC Morphology NORMAL
[2022-01-17 14:36] LABS: Troponin-I High Sensitivity 7.5 ng/L (<3.5-35.0)
[2022-01-17 14:46] LABS: Bacteria Urine 2+ /LPF
--- NOTE | 2022-01-17 15:02 | PM.IMHP ---
History of Present Illness Date of Service: 01/17/22 Chief Complaint: Dysuria 71 year old man presenting with burning with urination that started a few days ago. He reported dysuria and frequency but denied hematuria as well as fever, chills, nausea or vomiting. He is currently undergoing chemotherapy for esophageal cancer at [facility] oncology. White blood cell count was noted to be elevated at 46,000, lactic acid 2.7, tachycardia and tachypnea. Urinalysis was positive for UTI, chest x-ray pending. He was given a dose of Rocephin IV fluids in the ER. Will be admitted for further management and treatment of severe sepsis secondary to urinary tract infection. Review of Systems Review of Systems: Denies any recent fever chills or decrease in appetite respiratory denies any shortness of breath coverage production cardiovascular Denies chest pain gastrointestinal denies any dysphagia abdominal pain nausea vomiting or diarrhea genitourinary See HPI musculoskeletal denies any joint pain or swelling neuropsych denies any weakness or seizures all other systems reviewed are negative FOR[facility]LY [facility] Medical History Adenocarcinoma of cardio-esophageal junction Anxiety Benign essential hypertension Constipation Depression Diabetes type 2, uncontrolled Diabetic nephropathy associated with type 2 diabetes mellitus Diabetic neuropathy Diabetic neuropathy associated with type 2 diabetes mellitus Dyslipidemia HLD (hyperlipidemia) Hypertension Keratotic lesion Left below-knee amputee assisted (current) use of insulin Pure hypercholesterolemia Type 2 diabetes mellitus with diabetic polyneuropathy Vitamin D deficiency Family History Father Diabetes Hypertension Mother No problems noted. Surgical History History of atherectomy History of left below knee amputation Status post below-knee amputation of left lower extremity Social History Housing: Condominium Alcohol intake: never Patient Tobacco Use Status: Never used Tobacco Second Hand Smoke Exposure: Yes Use of substances other than those prescribed or required for medical reasons: No Advance Directives: No Advance Directives Information Provided: No Advance Directives Date on File: 08/19/20 service: No Current occupational status: retired and disabled Meds Allergies Allergy/AdvReac Type Severity Reaction Status Date / Time No Known Allergies Allergy Verified 01/17/22 13:12 Active Medications: Current Medications Ceftriaxone Sodium 1 gm/ (Sodium Chloride) 50 mls @ 100 mls/hr IV ONCE ONE Stop: 01/17/22 15:19 Pharmacy Consult (Consult Rx Perform Med Rec) 1 each MISCELLANE ONCE PRN PRN Reason: Consult order Home Medications Medication Instructions Recorded Confirmed Last Taken Type insulin aspar prot-insulin aspart See Rx Instructions SUBCUT BID ml 07/06/21 01/17/22 Unknown History 100 unit/mL (70-30) subcutaneous pen (Novolog Mix 70-30FlexPen U-100) atorvastatin 40 mg tablet 40 mg PO BEDTIME 01/17/22 01/17/22 01/16/22 History docusate sodium 100 mg capsule 200 mg PO BEDTIME 01/17/22 01/17/22 01/16/22 History insulin aspar prot-insulin aspart 22 unit SUBCUT DAILY@1700 01/17/22 01/17/22 01/16/22 History 100 unit/mL (70-30) subcutaneous pen (Novolog Mix 70-30FlexPen U-100) losartan 100 mg tablet 100 mg PO BEDTIME 01/17/22 01/17/22 01/16/22 History omeprazole 20 mg capsule,delayed 20 mg PO BID@0630,1630 01/17/22 01/17/22 01/16/22 History release Physical Exam Vital Signs and Narrative: Vital Signs: Last Vital Signs Temp 99.5 F 01/17/22 13:07 Pulse 113 H 01/17/22 14:08 Resp 21 H 01/17/22 14:08 BP 118/71 01/17/22 14:08 Pulse Ox 98 01/17/22 14:08 BMI result Body Mass Index 22.6 Appearing in no acute distress head is normocephalic atraumatic eyes pupils are PERRLA sclera is anicteric mouth throat mucous membranes are intact and moist neck is supple no lymphadenopathy, no JVD noted lung sounds are clear to auscultation heart regular rate rhythm, clear S1, S2 positive bowel sounds, abdomen is soft, nontender neuro patient is alert x3, no focal deficits Results Labs CBC and Chem 7: 01/17/22 14:08 01/17/22 14:08 Labs: Laboratory Results - last 24 hr 01/17/22 01/17/2222 14:08 14:08 14:08 MCV 84.1 MCH 27.0 MCHC 32.2 RDW 16.4 H Plt Count 214 D MPV 10.4 Immature Gran % (Auto) Cancelled Neut % (Auto) Cancelled Lymph % (Auto) Cancelled [place] % (Auto) Cancelled Eos % (Auto) Cancelled Baso % (Auto) Cancelled Lymph # (Auto) Cancelled [place] # (Auto) Cancelled Eos # (Auto) Cancelled Baso # (Auto) Cancelled Abs Immat Gran (auto) Cancelled Absolute Neuts (auto) Cancelled Absolute Nucleated RBC 0.000 Nucleated RBC % (auto) 0.0 Neutrophils % (Manual) 83 H Band Neutrophils % 7 H Lymphocytes % (Manual) 4 L Monocytes % (Manual) 4 Eosinophils % (Manual) 1 Metamyelocytes % 1 Abs Neuts (Manual) 42.0 H Lymphocytes # (Manual) 1.9 Monocytes # (Manual) 1.9 H Eosinophils # (Manual) 0.5 H Metamyelocytes # 0.5 Toxic Vacuolation PRESENT Platelet Estimate NORMAL Plt Morphology Comment NORMAL RBC Morphology NORMAL Anion Gap 11 L Estim Creat Clear Calc 85.7 Estimated GFR > 60 Random Glucose 295 H Lactic Acid 2.7 H* Calcium 8.9 D Total Bilirubin 0.7 Direct Bilirubin 0.3 AST 30 ALT 23 Alkaline Phosphatase 256 H D Total Protein 6.7 Albumin 3.5 Urine Color Urine Appearance Urine pH Ur Specific [place] Urine Protein Urine Glucose (UA) Urine Ketones Urine Blood Urine Nitrite Ur Leukocyte Esterase Urine RBC Urine WBC Ur Squamous Epith Cells Urine Bacteria 01/17/22 14:18 MCV MCH MCHC RDW Plt Count MPV Immature Gran % (Auto) Neut % (Auto) Lymph % (Auto) [place] % (Auto) Eos % (Auto) Baso % (Auto) Lymph # (Auto) [place] # (Auto) Eos # (Auto) Baso # (Auto) Abs Immat Gran (auto) Absolute Neuts (auto) Absolute Nucleated RBC Nucleated RBC % (auto) Neutrophils % (Manual) Band Neutrophils % Lymphocytes % (Manual) Monocytes % (Manual) Eosinophils % (Manual) Metamyelocytes % Abs Neuts (Manual) Lymphocytes # (Manual) Monocytes # (Manual) Eosinophils # (Manual) Metamyelocytes # Toxic Vacuolation Platelet Estimate Plt Morphology Comment RBC Morphology Anion Gap Estim Creat Clear Calc Estimated GFR Random Glucose Lactic Acid Calcium Total Bilirubin Direct Bilirubin AST ALT Alkaline Phosphatase Total Protein Albumin Urine Color YELLOW Urine Appearance CLOUDY Urine pH 6.0 Ur Specific [place] 1.015 Urine Protein TRACE Urine Glucose (UA) >=1000 H Urine Ketones NEG Urine Blood 1+ H Urine Nitrite NEG Ur Leukocyte Esterase 2+ H Urine RBC 1-4 Urine WBC 76-150 H Ur Squamous Epith Cells NONE Urine Bacteria 2+ Assessment and Plan (1) Acute UTI: Status: Acute Plan 71 year old man admitted with severe sepsis secondary to UTI. Patient likely requires 2 midnights in the hospital due to the necessity for IV antibiotics especially in light of the fact that the patient is immunocompromised, fluids for severe sepsis Severe sepsis secondary to urinary tract infection Leukocytosis, tachycardia, tachypnea, lactic acidosis Follow cultures Rocephin IV fluids for lactic acidosis Diabetes mellitus Sliding scale, ADA diet Hypertension. Stable blood pressure Will hold antihypertensives in light of sepsis to avoid hypotension GERD Continue PPI Esophageal cancer Currently undergoing chemotherapy treatment at [facility] On[facility] DVT prophylaxis with Lovenox Attending Dr. Hurtado Full code Quality Stroke Does the patient have a stroke diagnosis?: No VTE Prior VTE?: No VTE Risk Level:: Medical - moderate - high VTE Device Contraindication: Treatment Not Indicated VTE Drug Contraindication: N/A - Med Ordered
--- NOTE | 2022-01-17 15:40 | PHA.MEDREC ---
Pharmacy Consult ? Medication Reconciliation Pharmacy has completed the medication reconciliation.
[2022-01-17 16:12] LABS: Reflex Lactate? Lactic Acid Added
[2022-01-17 16:18] LABS: COVID-19 Test Negative (Negative)
[2022-01-17] MEDS: cefTRIAXone sodium 1 GM in 0.9 % Sodium Chloride 50 ML IV (16:45)
[2022-01-17] MEDS: 0.9 % Sodium Chloride Flush 3 ML SYRINGE IVFLUSH (16:46)
[2022-01-17] MEDS: Enoxaparin Sodium 40 MG/0.4 ML SYRINGE SUBCUT (16:46)
[2022-01-17 16:49] VITALS: BP 132/75; PULSE 102; RESP 16; TEMP 36.9; O2SAT 98
[2022-01-17 19:29] VITALS: BP 138/81; PULSE 96; RESP 18; TEMP 35.7; O2SAT 98
[2022-01-17] MEDS: LORazepam 0.5 MG TABLET PO (20:33)
[2022-01-17 23:58] VITALS: BP 148/74; PULSE 100; RESP 17; TEMP 36.3; O2SAT 97
[2022-01-18] MEDS: Mirtazapine 30 MG TABLET PO ×2 (00:01→20:40)
[2022-01-18] MEDS: 0.9 % Sodium Chloride Flush 3 ML SYRINGE IVFLUSH ×3 (00:03→20:43)
[2022-01-18] MEDS: guaiFENesin DM 100/10/5 ML 5 ML SYRUP PO ×2 (00:18→18:16)
[2022-01-18] MEDS: Acetaminophen 325 MG TABLET 650 MG PO (02:25)
[2022-01-18 06:06] LABS: Hematocrit 39.7 % (42.0-52.0); Hemoglobin 12.4 g/dl (14.0-18.0); Mean Corpuscular HGB Conc 31.2 g/dl (31.0-36.0); Mean Corpuscular Hemoglobin 27.1 pg (27.0-33.0); Mean Corpuscular Volume 86.7 fL (80.0-98.0); Mean Platelet Volume 11.1 fL (9.4-12.4); Platelet Count 173 X10*3/uL (160-400); Red Blood Count 4.58 X10*6/uL (4.60-5.80); Red Cell Distribution Width 16.6 % (11.0-16.0); White Blood Count 27.2 X10*3/uL (4.8-10.8)
[2022-01-18 06:18] LABS: Anion Gap 15 (12-20); Blood Urea Nitrogen 9 mg/dL (9-16); Calcium 8.8 mg/dL (8.4-10.2); Carbon Dioxide 23 mmol/L (22-29); Chloride 105 mmol/L (96-108); Creatinine Clr Calc Pharmacy 90.7; Estimated Glomerular Filt Rate > 60; Glucose Random 192 mg/dL (60-115); Potassium 4.6 mmol/L (3.3-5.1); Sodium 138 mmol/L (135-145)
[2022-01-18 06:28] LABS: Band Neutrophils Percent 7 % (3-5); Lymphocytes Absolute Manual 2.4 X10*3/uL (1.2-4.9); Lymphocytes Percent Manual 9 % (20-40); Monocytes Absolute Manual 0.5 X10*3/uL (0.1-1.2); Monocytes Percent Manual 2 % (2-11); Neutrophils Absolute Manual 24.2 X10*3/uL (2.0-8.3); Neutrophils Percent Manual 82 % (45-73); Platelet Estimate NORMAL (NORMAL); Platelet Morphology Comment NORMAL; RBC Morphology NORMAL
[2022-01-18 07:00] VITALS: BP 140/81; PULSE 94; RESP 18; TEMP 36.1; O2SAT 95
[2022-01-18] MEDS: LORazepam 0.5 MG TABLET PO ×2 (09:33→18:12)
--- NOTE | 2022-01-18 09:44 | MHC.CM.PN ---
nurse medical case worker note [employer] medical record reviewwd along with case discussed with staff nurse . met with patient and his daughter, sam gonzalez with his he is independent in his adl with his prosthetic leg , he uses a cane at home to ambulate and here in the hopsital a walker to amb to bathroom, he also has a wheelchair fromthe past. he has no vna , no dme services in the home he has anxiety/depression and prescribed medications from his pcp , discharge plan home with no srvices anticpated at this time, transportation family ' requested copy of hcp to be brought in confirmed pcp dr enrique andre vaccinated x3 p[facility] at [email or web address]
--- NOTE | 2022-01-18 11:30 | HO.PM.IMPN ---
Subjective Subjective Date of Service: 01/18/22 Review of Systems Follow up sepsis secondary to UTI No complaints of pain resting in bed Physical Exam Vital Signs: Vital Signs: Last Vital Signs Temp 97 F 01/18/22 07:00 Pulse 94 01/18/22 07:00 Resp 18 01/18/22 07:00 BP 140/81 H 01/18/22 07:00 Pulse Ox 95 01/18/22 07:00 BMI result Body Mass Index 22.6 Appearing in no acute distress lung sounds are clear to auscultation heart regular rate rhythm, clear S1, S2 positive bowel sounds, abdomen is soft, nontender neuro patient is alert x3, no focal deficits Objective Data Active Medications Acetaminophen (Acetaminophen 325 Mg Tablet) 650 mg PO Q6H PRN PRN Reason: Pain, Mild (Pain Scale 1-3) Last Admin: 01/18/22 02:25 Dose: 650 mg Documented by: DUC Atorvastatin Calcium (Atorvastatin Calcium 40 Mg Tablet) 40 mg PO BEDTIME COURTNEY Docusate Sodium (Docusate Sodium 100 Mg Capsule) 200 mg PO BEDTIME COURTNEY Enoxaparin Sodium (Enoxaparin Sodium 40 Mg/0.4 Ml Syringe) 40 mg SUBCUT Q24H [facility] Last Admin: 01/17/22 16:46 Dose: 40 mg Documented by: MOMO Ferrous Sulfate (Ferrous Sulfate 324 Mg Tablet.Dr) 324 mg PO DAILY COURTNEY Gabapentin (Gabapentin 100 Mg Capsule) 200 mg PO BEDTIME [facility] Guaifenesin/Dextromethorphan (Guaifenesin Dm 100/10/5 Ml 5 Ml Syrup) 5 ml PO Q6H PRN PRN Reason: Cough Last Admin: 01/18/22 00:18 Dose: 5 ml Documented by: DUC Ceftriaxone Sodium 1 gm/ (Sodium Chloride) 50 mls @ 100 mls/hr IV Q24H [facility] Last Admin: 01/17/22 16:46 Dose: Not Given Documented by: MOMO Non-Admin Reason: Duplicate Order Insulin Glargine (Insulin Glargine,Hum.Rec.Anlog 100 Unit/Ml 10 Ml Vial) 12 unit SUBCUT DAILY@1700 [facility] Insulin Glargine (Insulin Glargine,Hum.Rec.Anlog 100 Unit/Ml 10 Ml Vial) 17 unit SUBCUT DAILY@0730 [facility] Insulin Human Lispro (Insulin Lispro 100 Unit/Ml 3 Ml Vial) 6 unit SUBCUT DAILY@1700 [facility] Insulin Human Lispro (Insulin Lispro 100 Unit/Ml 3 Ml Vial) 9 unit SUBCUT DAILY@0730 [facility] Lorazepam (Lorazepam 0.5 Mg Tablet) 0.5 mg PO Q8H PRN PRN Reason: anxiety Last Admin: 01/18/22 09:33 Dose: 0.5 mg Documented by: GO Losartan Potassium (Losartan Potassium 50 Mg Tablet) 100 mg PO BEDTIME [facility]; Protocol Metformin HCl (Metformin Hcl Er 500 Mg Tab.Er.24h) 1,000 mg PO BID [facility] Metoprolol Succinate (Metoprolol Succinate Er 12.5 Mg Halftab.Er.24h) 12.5 mg PO DAILY [facility]; Protocol Mirtazapine (Mirtazapine 30 Mg Tablet) 30 mg PO BEDTIME [facility] Last Admin: 01/18/22 00:01 Dose: 30 mg Documented by: DUC Omeprazole (Omeprazole 20 Mg Capsule.Dr) 20 mg PO BID@0630,1630 [facility] Ondansetron HCl (Ondansetron Hcl 4 Mg/2 Ml Vial) 4 mg IVPUSH Q8H PRN PRN Reason: Nausea and Vomiting Pharmacy Consult (Consult Rx Perform Med Rec) 1 each MISCELLANE ONCE PRN PRN Reason: Consult order Sodium Chloride (0.9 % Sodium Chloride Flush 3 Ml Syringe) 3 ml IVFLUSH QSHIFT [facility] Last Admin: 01/18/22 08:40 Dose: 3 ml Documented by: GO Vitamin D (Cholecalciferol (Vitamin D3) 25 Mcg Tablet) 25 mcg PO DAILY [facility] Labs CBC & Chem 7: 01/18/22 05:31 01/18/22 05:31 Labs: Laboratory Results - last 24 hr 01/17/22 01/17/22 01/17/22 14:08 14:08 14:08 MCV 84.1 MCH 27.0 MCHC 32.2 RDW 16.4 H Plt Count 214 D MPV 10.4 Immature Gran % (Auto) Cancelled Neut % (Auto) Cancelled Lymph % (Auto) Cancelled [place] % (Auto) Cancelled Eos % (Auto) Cancelled Baso % (Auto) Cancelled Lymph # (Auto) Cancelled [place] # (Auto) Cancelled Eos # (Auto) Cancelled Baso # (Auto) Cancelled Abs Immat Gran (auto) Cancelled Absolute Neuts (auto) Cancelled Absolute Nucleated RBC 0.000 Nucleated RBC % (auto) 0.0 Neutrophils % (Manual) 83 H Band Neutrophils % 7 H Lymphocytes % (Manual) 4 L Monocytes % (Manual) 4 Eosinophils % (Manual) 1 Metamyelocytes % 1 Abs Neuts (Manual) 42.0 H Lymphocytes # (Manual) 1.9 Monocytes # (Manual) 1.9 H Eosinophils # (Manual) 0.5 H Metamyelocytes # 0.5 Toxic Vacuolation PRESENT Platelet Estimate NORMAL Plt Morphology Comment NORMAL RBC Morphology NORMAL Anion Gap 11 L Estim Creat Clear Calc 85.7 Estimated GFR > 60 Random Glucose 295 H Lactic Acid 2.7 H* Lactic Acid F/U @ 2Hr Calcium 8.9 D Total Bilirubin 0.7 Direct Bilirubin 0.3 AST 30 ALT 23 Alkaline Phosphatase 256 H D Total Protein 6.7 Albumin 3.5 Urine Color Urine Appearance Urine pH Ur Specific Howe Urine Protein Urine Glucose (UA) Urine Ketones Urine Blood Urine Nitrite Ur Leukocyte Esterase Urine RBC Urine WBC Ur Squamous Epith Cells Urine Bacteria COVID-19 (JUAN CARLOS) COVID-19 Clin Com 01/17/22 01/17/22 01/17/22 14:18 15:46 16:45 MCV MCH MCHC RDW Plt Count MPV Immature Gran % (Auto) Neut % (Auto) Lymph % (Auto) [place] % (Auto) Eos % (Auto) Baso % (Auto) Lymph # (Auto) [place] # (Auto) Eos # (Auto) Baso # (Auto) Abs Immat Gran (auto) Absolute Neuts (auto) Absolute Nucleated RBC Nucleated RBC % (auto) Neutrophils % (Manual) Band Neutrophils % Lymphocytes % (Manual) Monocytes % (Manual) Eosinophils % (Manual) Metamyelocytes % Abs Neuts (Manual) Lymphocytes # (Manual) Monocytes # (Manual) Eosinophils # (Manual) Metamyelocytes # Toxic Vacuolation Platelet Estimate Plt Morphology Comment RBC Morphology Anion Gap Estim Creat Clear Calc Estimated GFR Random Glucose Lactic Acid Lactic Acid F/U @ 2Hr 2.0 Calcium Total Bilirubin Direct Bilirubin AST ALT Alkaline Phosphatase Total Protein Albumin Urine Color YELLOW Urine Appearance CLOUDY Urine pH 6.0 Ur Specific Howe 1.015 Urine Protein TRACE Urine Glucose (UA) >=1000 H Urine Ketones NEG Urine Blood 1+ H Urine Nitrite NEG Ur Leukocyte Esterase 2+ H Urine RBC 1-4 Urine WBC 76-150 H Ur Squamous Epith Cells NONE Urine Bacteria 2+ COVID-19 (JUAN CARLOS) Negative COVID-19 Clin Com See Note 01/18/22 01/18/22 05:31 05:31 MCV 86.7 MCH 27.1 MCHC 31.2 RDW 16.6 H Plt Count 173 MPV 11.1 Immature Gran % (Auto) Cancelled Neut % (Auto) Cancelled Lymph % (Auto) Cancelled [place] % (Auto) Cancelled Eos % (Auto) Cancelled Baso % (Auto) Cancelled Lymph # (Auto) Cancelled [place] # (Auto) Cancelled Eos # (Auto) Cancelled Baso # (Auto) Cancelled Abs Immat Gran (auto) Cancelled Absolute Neuts (auto) Cancelled Absolute Nucleated RBC 0.000 Nucleated RBC % (auto) 0.0 Neutrophils % (Manual) 82 H Band Neutrophils % 7 H Lymphocytes % (Manual) 9 L Monocytes % (Manual) 2 Eosinophils % (Manual) Metamyelocytes % Abs Neuts (Manual) 24.2 H Lymphocytes # (Manual) 2.4 Monocytes # (Manual) 0.5 Eosinophils # (Manual) Metamyelocytes # Toxic Vacuolation Platelet Estimate NORMAL Plt Morphology Comment NORMAL RBC Morphology NORMAL Anion Gap 15 Estim Creat Clear Calc 90.7 Estimated GFR > 60 Random Glucose 192 H Lactic Acid Lactic Acid F/U @ 2Hr Calcium 8.8 Total Bilirubin Direct Bilirubin AST ALT Alkaline Phosphatase Total Protein Albumin Urine Color Urine Appearance Urine pH Ur Specific [place] Urine Protein Urine Glucose (UA) Urine Ketones Urine Blood Urine Nitrite Ur Leukocyte Esterase Urine RBC Urine WBC Ur Squamous Epith Cells Urine Bacteria COVID-19 (JUAN CARLOS) COVID-19 Clin Com Microbiology Microbiology Results: Microbiology 01/17/22 14:44 Urine Culture - Preliminary Urine clean catch - Urine pate top Culture in progress. Assessment and Plan (1) Acute UTI: Status: Acute Plan 71 year old man admitted with severe sepsis secondary to UTI. Patient likely requires 2 midnights in the hospital due to? the necessity for IV antibiotics especially in light of the fact that the patient is immunocompromised, fluids for severe sepsis Severe sepsis secondary to urinary tract infection Leukocytosis, tachycardia, tachypnea, lactic acidosis Follow cultures, still pending Rocephin IV fluids for lactic acidosis, resolved Diabetes mellitus Sliding scale, ADA diet Hypertension.? Stable blood pressure Will hold antihypertensives in light of sepsis to avoid hypotension GERD Continue PPI Esophageal cancer Currently undergoing chemotherapy treatment at [facility] DVT prophylaxis with Lovenox Attending Dr. Love Full code Patient requires continued hospitalization due to requiring IV medication for UTI, pending urine and blood cultures Quality Stroke Does the patient have a stroke diagnosis?: No VTE Prior VTE?: No VTE Risk Level:: Medical - moderate - high VTE Device Contraindication: Treatment Not Indicated VTE Drug Contraindication: N/A - Med Ordered
[2022-01-18 14:42] LABS: Glucose, Whole Blood 352 mg/dL (60-115)
[2022-01-18] MEDS: cefTRIAXone sodium 1 GM in 0.9 % Sodium Chloride 50 ML IV (15:09)
[2022-01-18 15:31] VITALS: BP 121/65; PULSE 98; RESP 18; TEMP 36.8; O2SAT 98
[2022-01-18] MEDS: Insulin Glargine,Hum.rec.anlog 100 UNIT/ML 10 ML VIAL 12 UNIT SUBCUT (15:42)
[2022-01-18] MEDS: Omeprazole 20 MG CAPSULE.DR PO (15:43)
[2022-01-18] MEDS: Enoxaparin Sodium 40 MG/0.4 ML SYRINGE SUBCUT (15:43)
[2022-01-18] MEDS: Insulin Lispro 100 UNIT/ML 3 ML VIAL 6 UNIT SUBCUT (15:44)
[2022-01-18 16:25] LABS: Glucose, Whole Blood 341 mg/dL (60-115)
[2022-01-18 20:05] LABS: Glucose, Whole Blood 225 mg/dL (60-115)
[2022-01-18] MEDS: Losartan Potassium 50 MG TABLET 100 MG PO (20:40)
[2022-01-18] MEDS: Atorvastatin Calcium 40 MG TABLET PO (20:40)
[2022-01-18] MEDS: Docusate Sodium 100 MG CAPSULE 200 MG PO (20:40)
[2022-01-18] MEDS: Gabapentin 100 MG CAPSULE 200 MG PO (20:40)
[2022-01-18] MEDS: metFORMIN HCl ER 500 MG TAB.ER.24H 1000 MG PO (20:40)
[2022-01-18 23:25] VITALS: BP 143/84; PULSE 89; RESP 17; TEMP 36.7; O2SAT 98
[2022-01-19] MEDS: LORazepam 0.5 MG TABLET PO (05:54)
[2022-01-19] MEDS: Omeprazole 20 MG CAPSULE.DR PO (05:54)
[2022-01-19] MEDS: 0.9 % Sodium Chloride Flush 3 ML SYRINGE IVFLUSH (07:28)
[2022-01-19 07:31] VITALS: BP 130/79; PULSE 94; RESP 16; TEMP 36.2; O2SAT 98
[2022-01-19 07:51] LABS: Glucose, Whole Blood 190 mg/dL (60-115)
[2022-01-19] MEDS: Insulin Lispro 100 UNIT/ML 3 ML VIAL 9 UNIT SUBCUT (07:59)
[2022-01-19] MEDS: Insulin Glargine,Hum.rec.anlog 100 UNIT/ML 10 ML VIAL 17 UNIT SUBCUT (07:59)
[2022-01-19] MEDS: Ferrous Sulfate 324 MG TABLET.DR PO (09:01)
[2022-01-19] MEDS: Metoprolol Succinate ER 12.5 MG HALFTAB.ER.24H PO (09:01)
[2022-01-19] MEDS: Cholecalciferol (Vitamin D3) 25 MCG TABLET PO (09:01)
--- NOTE | 2022-01-19 09:23 | P.DS_ITS ---
DS: Providers Provider Date of Service: 01/19/22 Date of admission: 01/17/22 15:26 Primary care physician: Norm Hooks MD Attending physician on discharge: Dex Love Discharging clinician: Reny Mancilla DS: Diagnosis Discharge Diagnosis (1) Acute UTI: Status: Acute DS: Summary Hospital Course Hospital Course: 71 year old man presenting with burning with urination that started a few days ago. He reported dysuria and frequency but denied hematuria as well as fever, chills, nausea or vomiting.? He is currently undergoing chemotherapy for esophageal cancer at [facility]ology.? White blood cell count was noted to be elevated at 46,000, lactic acid 2.7, tachycardia and tachypnea.? Urinalysis was positive for UTI, chest x-ray pending.? He was given a dose of Rocephin IV fluids in the ER.? Will be admitted for further management and treatment of severe sepsis secondary to urinary tract infection. Severe sepsis secondary to urinary tract infection. Resolved Leukocytosis, tachycardia, tachypnea, lactic acidosis Treated with IV Rocephin blood cultures up to 24 hours negative Diabetes mellitus. Stable Sliding scale, ADA diet Hypertension.? Stable blood pressure antihypertensives held initially due to sepsis but will be continued on discharge GERD Continue PPI Esophageal cancer Currently undergoing chemotherapy treatment at [facility] Time Spent with Patient Time attestation: Total time spent providing and/or coordinating discharge services: Discharge coordination time: Greater than 30 minutes Quality: Stroke Does the patient have a stroke diagnosis?: No Physical Exam Vital Signs: Vital Signs: Last Vital Signs Temp 97.2 F 01/19/22 07:31 Pulse 94 01/19/22 07:31 Resp 16 01/19/22 07:31 BP 130/79 01/19/22 07:31 Pulse Ox 98 01/19/22 07:31 BMI result Body Mass Index 22.6 Appearing in no acute distress head is normocephalic atraumatic eyes pupils are PERRLA sclera is anicteric mouth throat mucous membranes are intact and moist neck is supple no lymphadenopathy, no JVD noted lung sounds are clear to auscultation heart regular rate rhythm, clear S1, S2 positive bowel sounds, abdomen is soft, nontender neuro patient is alert x3, no focal deficits DS: Data Data Completed and Pending Labs on day of discharge: Laboratory Results - last 24 hr 01/18/22 01/18/22 01/18/22 14:38 15:30 19:59 POC Glucose 352 H* 341 H 225 H 01/19/22 07:30 POC Glucose 190 H Preliminary micro results at discharge 01/17/22 15:46 Blood Culture - Preliminary Blood - Venous No growth after 24 hours. 01/17/22 15:41 Blood Culture - Preliminary Blood - Venous No growth after 24 hours. 01/17/22 14:44 Urine Culture - Preliminary Urine clean catch - Urine pate top Culture in progress. Discharge Plan Discharge Anticipated Discharge Date/Time: 01/19/22 09:20 Patient Disposition: Home, Self-Care Discharge Diagnosis: UTI Referrals: Norm Hooks MD [Primary Care Provider] - 1 Week Discharge Medications: New cefuroxime axetil 500 mg tablet 500 mg PO BID Qty: 16 0RF Continued metoprolol succinate 25 mg tablet extended release 24 hr 12.5 mg PO DAILY 90 Days Qty: 45 4RF cholecalciferol (vitamin D3) [Vitamin D3] 25 mcg (1,000 unit) capsule 25 mcg PO DAILY 90 Days Qty: 90 3RF ferrous sulfate 325 mg (65 mg iron) tablet 325 mg PO DAILY 90 Days Qty: 90 3RF (DME) lancets [TRUEplus Lancets] 33 gauge misc See Rx Instructions .Route Qty: 100 11RF Rx Instructions: 4x daily (DME) pen needle, diabetic [Pentips] 32 gauge x 5/32 needle See Rx Instructions .Route Qty: 100 11RF Rx Instructions: 4x daily (DME) FreeStyle Lite Strips Strip See Rx Instructions .ROUTE .MEDSUPPLY Qty: 150 6RF Rx Instructions: As directed four times a day (DME) lancets [FreeStyle Lancets] 28 gauge misc See Rx Instructions .ROUTE .MEDSUPPLY Qty: 200 6RF Rx Instructions: 4 times a day mirtazapine 30 mg tablet 30 mg PO BEDTIME Qty: 90 1RF tramadol 50 mg tablet 50 mg PO Q6-8H PRN (Reason: pain) 30 Days Qty: 120 1RF gabapentin 100 mg capsule 200 mg PO BEDTIME Qty: 180 0RF lorazepam 0.5 mg tablet 0.5 mg PO Q8H PRN (Reason: anxiety) 30 Days Qty: 90 2RF Rx Instructions: take 1 tablet by mouth every 8 hours as needed ondansetron 8 mg Tablet,Disintegrating 8 mg PO Q8H PRN (Reason: Nausea) Qty: 60 4RF insulin asp prt-insulin aspart [Novolog Mix 70-30FlexPen U-100] 100 unit/mL (70-30) insulin pen 22 unit subcut DAILY@1700 0RF atorvastatin 40 mg tablet 40 mg PO BEDTIME 0RF docusate sodium 100 mg capsule 200 mg PO BEDTIME 0RF omeprazole 20 mg capsule,delayed release(DR/EC) 20 mg PO BID@0630,1630 0RF losartan 100 mg tablet 100 mg PO BEDTIME 0RF (DME) FreeStyle Nate 2 [place] Misc See Rx Instructions .ROUTE .MEDSUPPLY Qty: 1 0RF Rx Instructions: As directed (DME) FreeStyle Precision Octavio Strips Strip See Rx Instructions .ROUTE .MEDSUPPLY Qty: 25 8RF Rx Instructions: once a day for calibration (DME) FreeStyle Nate 2 Sensor Kit See Rx Instructions .ROUTE .MEDSUPPLY Qty: 2 11RF Rx Instructions: Every 14 days insulin asp prt-insulin aspart [Novolog Mix 70-30FlexPen U-100] 100 unit/mL (70-30) insulin pen 30 unit subcut DAILY@0730 0RF metformin 500 mg tablet extended release 24 hr 1,000 mg PO BID 30 Days Qty: 120 11RF Discharge Orders: Discharge Order (Routine); Ordered 01/19/22 Ordered By: Reny Mancilla Diet: advance to usual diet Activity on Discharge: As tolerated Stand Alone Forms: Patient Portal Discharge page Care Plan Goals: complete resolution of urinary symptoms Health Concerns: urinary tract infection Plan of Treatment: Continue IV antibiotics for urinary tract infection as prescribed Follow-up with her primary care provider as needed Assessment: See discharge summary
--- NOTE | 2022-01-19 10:09 | MHC.CM.PN ---
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
[2022-01-19] MEDS: Heparin Sodium,Porcine Flush 100 UNITS, 0.9 % Sodium Chloride Flush 5 ML IVFLUSH (10:36)
== END 2022-01-19 10:41 | disposition home or self-care (01) | DRG 872 ==
LOC: HO.ED 14:57 → HO.EDOVER 15:41 → HO.S3 17:27
PROVIDERS: Nurse Practitioner Family; Admitting Provider Nurse Practitioner Acute Care; Emergency Provider Emergency Medicine; PCP Internal Medicine; Visit Provider Nurse Practitioner Acute Care
DX: A41.9 Sepsis, unspecified organism (principal); N39.0 Urinary tract infection, site not specified; C15.9 Malignant neoplasm of esophagus, unspecified; E87.2 Acidosis; K21.9 Gastro-esophageal reflux disease without esophagitis; I10 Essential (primary) hypertension; D72.829 Elevated white blood cell count, unspecified; E11.9 Type 2 diabetes mellitus without complications; R65.20 Severe sepsis without septic shock; Z20.822 Contact with and (suspected) exposure to COVID-19; Z89.512 Acquired absence of left leg below knee; Z79.4 Long term (current) use of insulin; Z79.84 Long term (current) use of oral hypoglycemic drugs; Z79.899 Other long term (current) drug therapy
CPT/HCPCS: 36415; 71045; 80048; 80076; 81001; 82947; 83605; 84484; 85007; 85027; 87040; 87086; 87088; 87186; 87635; 93005; 96361; 96365; 99285; J0696; J1642; J1650

== ENCOUNTER 2022-02-01 | Outpatient (REF) | payer MEDICARE, SELFPAY ==
[2022-02-01 11:56] LABS: MANUAL DIFF FLAG NO
[2022-02-01 12:03] LABS: Basophils Absolute Auto 0.1 X10*3/uL (0.0-0.2); Basophils Percent Auto 0.5 % (0-2); Eosinophils Absolute Auto 0.3 X10*3/uL (0.0-0.4); Eosinophils Percent Auto 2.1 % (0-4); Hemoglobin 12.1 g/dl (14.0-18.0); Imm Gran Abs Auto 0.09 X10*3/uL (0.00-0.03); Imm Gran Pct Auto 0.8 % (0.0-0.4); Lymphocytes Percent Auto 25.3 % (20-40); Mean Corpuscular Hemoglobin 27.1 pg (27.0-33.0); Mean Corpuscular Volume 87.2 fL (80.0-98.0); Mean Platelet Volume 10.4 fL (9.4-12.4); Monocytes Absolute Auto 1.4 X10*3/uL (0.1-1.2); Monocytes Percent Auto 12.1 % (2-11); Neutrophils Percent Auto 59.2 % (45-73); Platelet Count 428 X10*3/uL (160-400); Red Blood Count 4.47 X10*6/uL (4.60-5.80); Red Cell Distribution Width 18.7 % (11.0-16.0); White Blood Count 11.8 X10*3/uL (4.8-10.8)
[2022-02-01 12:21] LABS: Alanine Aminotransferase 30 U/L (0-40); Albumin Level 3.5 g/dL (3.5-5.0); Alkaline Phosphatase 215 U/L (39-117); Anion Gap 13 (12-20); Aspartate Amino Transferase 31 U/L (5-37); Bilirubin Total 0.6 mg/dL (0.0-1.0); Blood Urea Nitrogen 11 mg/dL (9-16); Calcium 9.5 mg/dL (8.4-10.2); Carbon Dioxide 27 mmol/L (22-29); Chloride 106 mmol/L (96-108); Estimated Glomerular Filt Rate > 60; Glucose Random 237 mg/dL (60-115); Potassium 4.9 mmol/L (3.3-5.1); Sodium 141 mmol/L (135-145); Total Protein 6.9 g/dL (6.5-8.0)
[2022-02-02 07:31] LABS: Thyroid Stimulating Hormone 0.05 uIU/mL (0.32-4.0)
== END 2022-02-01 00:01 | disposition home or self-care (01) ==
LOC: HO.LHD
PROVIDERS: Visit Provider Internal Medicine Medical Oncology
DX: C15.4 Malignant neoplasm of middle third of esophagus (principal); Z79.899 Other long term (current) drug therapy
CPT/HCPCS: 36415; 80053; 84443; 85025

== ENCOUNTER 2022-02-10 08:22 | Outpatient (REF) | payer MEDICARE, SELFPAY ==
--- NOTE | ~2022-02-10 | CT_ITS ---
EXAMINATION: CT ABDOMEN AND PELVIS WITH CONTRAST CLINICAL INFORMATION: Esophageal cancer with recurrence. Restaging. COMPARISON: Previous head CT May [address] of the abdomen and pelvis March 2019 TECHNIQUE: Multidetector volumetric images were obtained from the superior aspect of the liver through the pubic symphysis following administration 85 mL of Omnipaque 350 intravenous contrast. Sagittal and coronal reformatted images were obtained on the technologist's workstation. Oral contrast: Yes This CT examination was performed using dose optimization techniques as appropriate, variously including the following: *Automated exposure control *Adjustment of mA and/or kV according to patient size (this includes techniques or standardized protocols for targeted exams where dose is matched to indication/reason for exam; i.e. extremities or head) *Use of iterative reconstruction technique DLP: 306 mGy-cm FINDINGS: LIVER, GALLBLADDER, AND BILIARY TREE: The liver is normal in size, shape, and attenuation. No focal hepatic lesion or biliary ductal dilatation is present. The gallbladder is somewhat contracted there is focal wall thickening of the fundus of the gallbladder. This is new or increased 2019 exam. No gallstones are seen by CT PANCREAS: There are atrophic changes of the pancreas. SPLEEN: Unremarkable. ADRENAL GLANDS: There is a 1 cm left adrenal nodule. This is similar to previous exam. The right adrenal gland is normal. KIDNEYS AND URETERS: There is mild left renal cortical thinning or scarring in the upper pole. No hydronephrosis, hydroureter, or calculi seen. There is a stent in the proximal left renal artery. BLADDER: Bladder wall is slightly thickened and trabeculated. There is a 1 cm nodule at the base of the bladder. This is similar to previous exam and probably represents lobulated contour of the prostate gland or as opposed to a bladder lesion. GASTROINTESTINAL TRACT: There is wall thickening of the distal thoracic esophagus and GE junction. There is a small posterior gastric diverticulum. There is mild diverticulosis of the colon. Small and large bowel is otherwise unremarkable. The appendix is unremarkable. ABDOMINAL WALL: No significant hernia is appreciated. LYMPH NODES: Normal. VASCULAR: There is evidence of atherosclerotic disease. There is a left renal artery stent. PELVIC VISCERA: Prostate gland is enlarged and protrudes into the base of the bladder. OSSEOUS STRUCTURES: There are degenerative changes of the spine. CT/CT abdomen pelvis w con IMPRESSION: Wall thickening of the distal thoracic esophagus GE junction increased from previous exam. Thickened trabeculated bladder wall. Enlarged prostate gland. Abnormal soft tissue at the base of the bladder similar to previous exam probably related to lobulated contour of the prostate gland. New or increased gallbladder fundus wall thickening. Fleischner guidelines were followed.
--- NOTE | ~2022-02-10 | CT_ITS ---
EXAMINATION: CT CHEST WITH CONTRAST CLINICAL INFORMATION: Esophageal cancer. COMPARISON: Previous chest CT September 2021 TECHNIQUE: Multidetector volumetric CT imaging of the chest was obtained after the administration of 85 mL of Omnipaque 350 intravenous contrast without immediate adverse reactions. Axial MIP volume rendering provided. Sagittal and coronal reformatted images were obtained. This CT examination was performed using dose optimization techniques as appropriate, variously including the following: *Automated exposure control *Adjustment of mA and/or kV according to patient size (this includes techniques or standardized protocols for targeted exams where dose is matched to indication/reason for exam; i.e. extremities or head) *Use of iterative reconstruction technique DLP: 105 mGy-cm FINDINGS: LUNGS: There are 2 mm calcified right upper lobe nodule axial image 137 series 6 and 3 mm right lower lobe nodule axial image 271 series 6 that are stable. There are new right lower lobe nodules: 3 mm peripheral or subpleural right lower lobe axial image 232 series 6, 4 mm peripheral or subpleural right lower lobe axial image 304 series 6, 3 mm peripheral or subpleural right lower lobe near the minor fissure axial image 303 series 6, 4 mm peripheral or subpleural right lower lobe axial image 305 series 6 and 3 mm peripheral or subpleural right lower lobe axial image 303 series 6. The left lung is clear. MEDIASTINUM: There is wall thickening of the distal thoracic esophagus and at the GE junction. This is increased from September 2021 exam. There are small mediastinal lymph nodes. No enlarged lymph nodes are seen. Mild coronary artery calcification. Right jugular port with tip in the SVC. PLEURA: There is no pleural effusion. No pleural mass or thickening. AXILLA: No lymphadenopathy. UPPER ABDOMEN: See abdominal and pelvic CT report from the same day OSSEOUS STRUCTURES: There are degenerative changes of the spine. CT/CT chest w con IMPRESSION: New right lower lobe nodules. Interval increase in wall thickening of the distal thoracic esophagus and GE junction. Fleischner guidelines were followed.
[2022-02-10] MEDS: iohexoL 350 MG/ML 100 ML INFUS..BTL IV (11:56)
[2022-02-10] MEDS: Barium Sulfate Oral (Mocha) 450 ML ORAL.SUSP 900 ML PO (11:57)
== END 2022-02-10 08:23 | disposition home or self-care (01) ==
LOC: HO.CT 08:22
PROVIDERS: Visit Provider Internal Medicine Medical Oncology
DX: C15.4 Malignant neoplasm of middle third of esophagus (principal)
CPT/HCPCS: 71260; 74177; Q9967

== ENCOUNTER 2022-02-15 08:34 | Outpatient (REF) | payer MEDICARE, SELFPAY ==
[2022-02-15 12:48] LABS: MANUAL DIFF FLAG NO
[2022-02-15 13:02] LABS: Basophils Percent Auto 0.8 % (0-2); Eosinophils Absolute Auto 0.1 X10*3/uL (0.0-0.4); Eosinophils Percent Auto 1.8 % (0-4); Hematocrit 36.1 % (42.0-52.0); Hemoglobin 11.3 g/dl (14.0-18.0); Imm Gran Abs Auto 0.01 X10*3/uL (0.00-0.03); Imm Gran Pct Auto 0.3 % (0.0-0.4); Lymphocytes Absolute Auto 1.4 X10*3/uL (1.2-4.9); Lymphocytes Percent Auto 35.6 % (20-40); Mean Corpuscular HGB Conc 31.3 g/dl (31.0-36.0); Mean Corpuscular Hemoglobin 27.1 pg (27.0-33.0); Mean Corpuscular Volume 86.6 fL (80.0-98.0); Mean Platelet Volume 10.3 fL (9.4-12.4); Monocytes Absolute Auto 0.6 X10*3/uL (0.1-1.2); Monocytes Percent Auto 14.5 % (2-11); Neutrophils Absolute Auto 1.9 x10*3/uL (2.0-8.3); Platelet Count 176 X10*3/uL (160-400); Red Blood Count 4.17 X10*6/uL (4.60-5.80); Red Cell Distribution Width 19.4 % (11.0-16.0)
[2022-02-15 13:20] LABS: Alanine Aminotransferase 29 U/L (0-40); Albumin Level 3.5 g/dL (3.5-5.0); Alkaline Phosphatase 180 U/L (39-117); Anion Gap 11 (12-20); Aspartate Amino Transferase 34 U/L (5-37); Bilirubin Total 0.7 mg/dL (0.0-1.0); Blood Urea Nitrogen 13 mg/dL (9-16); Calcium 9.2 mg/dL (8.4-10.2); Carbon Dioxide 24 mmol/L (22-29); Chloride 107 mmol/L (96-108); Estimated Glomerular Filt Rate > 60; Glucose Random 174 mg/dL (60-115); Potassium 4.3 mmol/L (3.3-5.1); Sodium 138 mmol/L (135-145); Total Protein 6.5 g/dL (6.5-8.0)
== END 2022-02-15 08:35 | disposition home or self-care (01) ==
LOC: HO.LHD 08:34
PROVIDERS: Visit Provider Internal Medicine Medical Oncology
DX: C15.4 Malignant neoplasm of middle third of esophagus (principal)
CPT/HCPCS: 36415; 80053; 82378; 85025

== ENCOUNTER 2022-03-01 07:40 | Outpatient (REF) | payer MEDICARE, SELFPAY ==
[2022-03-01 11:49] LABS: MANUAL DIFF FLAG NO
[2022-03-01 11:51] LABS: Basophils Absolute Auto 0.1 X10*3/uL (0.0-0.2); Basophils Percent Auto 0.8 % (0-2); Eosinophils Absolute Auto 0.1 X10*3/uL (0.0-0.4); Eosinophils Percent Auto 1.3 % (0-4); Hematocrit 37.6 % (42.0-52.0); Imm Gran Abs Auto 0.37 X10*3/uL (0.00-0.03); Imm Gran Pct Auto 4.7 % (0.0-0.4); Lymphocytes Absolute Auto 2.7 X10*3/uL (1.2-4.9); Lymphocytes Percent Auto 34.3 % (20-40); Mean Corpuscular HGB Conc 31.9 g/dl (31.0-36.0); Mean Corpuscular Volume 87.6 fL (80.0-98.0); Monocytes Absolute Auto 0.7 X10*3/uL (0.1-1.2); Monocytes Percent Auto 9.4 % (2-11); NRBC Pct Auto 0.4 /100WBC (0.0-0.2); Neutrophils Absolute Auto 3.9 x10*3/uL (2.0-8.3); Neutrophils Percent Auto 49.5 % (45-73); Platelet Count 142 X10*3/uL (160-400); Red Blood Count 4.29 X10*6/uL (4.60-5.80); Red Cell Distribution Width 20.8 % (11.0-16.0); White Blood Count 7.9 X10*3/uL (4.8-10.8)
[2022-03-01 12:07] LABS: Alanine Aminotransferase 31 U/L (0-40); Albumin Level 3.3 g/dL (3.5-5.0); Alkaline Phosphatase 226 U/L (39-117); Anion Gap 13 (12-20); Aspartate Amino Transferase 41 U/L (5-37); Bilirubin Total 0.5 mg/dL (0.0-1.0); Blood Urea Nitrogen 9 mg/dL (9-16); Calcium 9.3 mg/dL (8.4-10.2); Carbon Dioxide 30 mmol/L (22-29); Chloride 104 mmol/L (96-108); Estimated Glomerular Filt Rate > 60; Glucose Random 118 mg/dL (60-115); Potassium 3.8 mmol/L (3.3-5.1); Sodium 143 mmol/L (135-145); Total Protein 6.4 g/dL (6.5-8.0)
[2022-03-01 15:04] LABS: Estimated Average Glucose 163 mg/dL; Hemoglobin A1c % 7.3 %
[2022-03-01 15:06] LABS: Bilirubin Direct 0.3 mg/dL (0.0-0.5); Cholesterol 150 mg/dL; HDL Cholesterol 33 mg/dL; LDL Cholesterol Calculated 93 mg/dl; Triglycerides 122 mg/dL
[2022-03-01 15:27] LABS: TSH reflex Free T4 1.11 uIU/mL (0.32-4.0)
[2022-03-01 16:01] LABS: Folate > 20.0 ng/mL (> or = 4.0); Vitamin B12 > 2000 pg/mL (200-900)
== END 2022-03-01 07:41 | disposition home or self-care (01) ==
LOC: HO.LHD 07:40
PROVIDERS: Internal Medicine; Visit Provider Internal Medicine Medical Oncology
DX: C15.4 Malignant neoplasm of middle third of esophagus (principal); E11.9 Type 2 diabetes mellitus without complications
CPT/HCPCS: 36415; 80053; 80061; 82248; 82306; 82607; 82746; 83036; 84443; 85025

== ENCOUNTER → 2022-03-10 07:58 | Outpatient (BNVA) | payer MEDICARE, SELFPAY | PROVIDERS: PCP Internal Medicine; Visit Provider Internal Medicine Endocrinology, Diabetes & Metabolism | DX: E11.65 Type 2 diabetes mellitus with hyperglycemia (principal); Z79.4 Long term (current) use of insulin; Z79.84 Long term (current) use of oral hypoglycemic drugs | CPT/HCPCS: 82947; 99212 ==

== ENCOUNTER 2022-03-15 07:54 | Outpatient (REF) | payer MEDICARE, SELFPAY ==
[2022-03-15 11:14] LABS: Hematocrit 39.9 % (42.0-52.0); Hemoglobin 12.2 g/dl (14.0-18.0); Mean Corpuscular HGB Conc 30.6 g/dl (31.0-36.0); Mean Corpuscular Hemoglobin 27.4 pg (27.0-33.0); Mean Corpuscular Volume 89.7 fL (80.0-98.0); Mean Platelet Volume 11.9 fL (9.4-12.4); NRBC Pct Auto 1.1 /100WBC (0.0-0.2); Platelet Count 87 X10*3/uL (160-400); Red Blood Count 4.45 X10*6/uL (4.60-5.80); Red Cell Distribution Width 21.3 % (11.0-16.0); White Blood Count 10.9 X10*3/uL (4.8-10.8)
[2022-03-15 11:15] LABS: PLT ABN DIST 1
[2022-03-15 11:26] LABS: Alanine Aminotransferase 27 U/L (0-40); Albumin Level 3.4 g/dL (3.5-5.0); Alkaline Phosphatase 277 U/L (39-117); Anion Gap 15 (12-20); Aspartate Amino Transferase 42 U/L (5-37); Bilirubin Direct 0.3 mg/dL (0.0-0.5); Bilirubin Total 0.8 mg/dL (0.0-1.0); Blood Urea Nitrogen 7 mg/dL (9-16); Calcium 9.6 mg/dL (8.4-10.2); Carbon Dioxide 24 mmol/L (22-29); Chloride 106 mmol/L (96-108); Estimated Glomerular Filt Rate > 60; Glucose Random 163 mg/dL (60-115); Potassium 3.8 mmol/L (3.3-5.1); Sodium 141 mmol/L (135-145); Total Protein 6.5 g/dL (6.5-8.0)
[2022-03-15 11:59] LABS: Band Neutrophils Percent 28 % (3-5); Lymphocytes Percent Manual 18 % (20-40); Metamyelocytes Absolute 0.8 X10*3/uL; Metamyelocytes Percent 7 %; Monocytes Absolute Manual 1.3 X10*3/uL (0.1-1.2); Monocytes Percent Manual 12 % (2-11); Myelocytes Absolute 0.1 X10*/uL; Myelocytes Percent 1 %; Neutrophils Absolute Manual 6.8 X10*3/uL (2.0-8.3); Neutrophils Percent Manual 34 % (45-73)
[2022-03-15 12:00] LABS: RBC Morphology NORMAL
[2022-03-15 12:01] LABS: Platelet Estimate DECREASED (NORMAL); Platelet Morphology Comment NOTE
== END 2022-03-15 07:55 | disposition home or self-care (01) ==
LOC: HO.LHD 07:54
PROVIDERS: Visit Provider Internal Medicine Medical Oncology
DX: C15.4 Malignant neoplasm of middle third of esophagus (principal)
CPT/HCPCS: 36415; 80053; 82248; 85007; 85027

== ENCOUNTER 2022-03-29 05:45 | Outpatient (REF) | payer MEDICARE, SELFPAY ==
[2022-03-29 11:34] LABS: PLT CLUMP 1
[2022-03-29 11:36] LABS: Hematocrit 34.8 % (42.0-52.0); Mean Corpuscular HGB Conc 31.6 g/dl (31.0-36.0); Mean Corpuscular Hemoglobin 28.2 pg (27.0-33.0); Mean Corpuscular Volume 89.2 fL (80.0-98.0); Mean Platelet Volume 10.9 fL (9.4-12.4); NRBC Pct Auto 0.7 /100WBC (0.0-0.2); Red Cell Distribution Width 21.2 % (11.0-16.0)
[2022-03-29 11:45] LABS: White Blood Count 9.9 X10*3/uL (4.8-10.8)
[2022-03-29 11:46] LABS: Platelet Count 95 X10*3/uL (160-400)
[2022-03-29 11:58] LABS: Alanine Aminotransferase 21 U/L (0-40); Alkaline Phosphatase 243 U/L (39-117); Anion Gap 11 (12-20); Aspartate Amino Transferase 31 U/L (5-37); Bilirubin Direct 0.3 mg/dL (0.0-0.5); Bilirubin Total 0.7 mg/dL (0.0-1.0); Blood Urea Nitrogen 6 mg/dL (9-16); Calcium 9.1 mg/dL (8.4-10.2); Carbon Dioxide 29 mmol/L (22-29); Chloride 106 mmol/L (96-108); Estimated Glomerular Filt Rate > 60; Glucose Random 154 mg/dL (60-115); Potassium 3.7 mmol/L (3.3-5.1); Sodium 142 mmol/L (135-145)
[2022-03-29 12:00] LABS: Band Neutrophils Percent 8 % (3-5); Basophils Abs Manual 0.1 X10*3/uL (0.0-0.2); Basophils Percent Manual 1 % (0-2); Lymphocytes Absolute Manual 2.1 X10*3/uL (1.2-4.9); Lymphocytes Percent Manual 21 % (20-40); Metamyelocytes Absolute 0.2 X10*3/uL; Metamyelocytes Percent 2 %; Monocytes Absolute Manual 0.6 X10*3/uL (0.1-1.2); Monocytes Percent Manual 6 % (2-11); Neutrophils Absolute Manual 6.9 X10*3/uL (2.0-8.3); Neutrophils Percent Manual 62 % (45-73); Nucleated Red Blood Cells 1 /100WBC (0-0)
[2022-03-29 12:01] LABS: Large Platelet PRESENT; Platelet Estimate DECREASED (NORMAL); Platelet Morphology Comment NOTED
[2022-03-29 12:02] LABS: Macrocytosis 1+ (5-14) /OIF; Polychromasia 1+ (0-2) /OIF; RBC Morphology NOTED
[2022-03-29 12:03] LABS: Hypochromasia 1+ (5-14) /OIF
== END 2022-03-29 05:46 | disposition home or self-care (01) ==
LOC: HO.LHD 05:45
PROVIDERS: Visit Provider Internal Medicine Medical Oncology
DX: C15.4 Malignant neoplasm of middle third of esophagus (principal)
CPT/HCPCS: 36415; 80053; 82248; 85007; 85027

== ENCOUNTER 2022-04-09 06:37 | Outpatient (REF) | payer MEDICARE, SELFPAY ==
[2022-04-09 12:26] LABS: Basophils Percent Auto 0.4 % (0-2); Eosinophils Absolute Auto 0.1 X10*3/uL (0.0-0.4); Eosinophils Percent Auto 2.5 % (0-4); Hematocrit 30.5 % (42.0-52.0); Hemoglobin 9.6 g/dl (14.0-18.0); Imm Gran Abs Auto 0.01 X10*3/uL (0.00-0.03); Imm Gran Pct Auto 0.4 % (0.0-0.4); Lymphocytes Absolute Auto 1.2 X10*3/uL (1.2-4.9); Lymphocytes Percent Auto 50.8 % (20-40); MANUAL DIFF FLAG SCAN; Mean Corpuscular HGB Conc 31.5 g/dl (31.0-36.0); Mean Corpuscular Hemoglobin 28.6 pg (27.0-33.0); Mean Corpuscular Volume 90.8 fL (80.0-98.0); Monocytes Absolute Auto 0.3 X10*3/uL (0.1-1.2); Monocytes Percent Auto 11.9 % (2-11); NRBC Pct Auto 0.8 /100WBC (0.0-0.2); Neutrophils Absolute Auto 0.8 x10*3/uL (2.0-8.3); Platelet Count 28 X10*3/uL (160-400); Red Blood Count 3.36 X10*6/uL (4.60-5.80); Red Cell Distribution Width 19.4 % (11.0-16.0); SCAN SMEAR FLAG 1; White Blood Count 2.4 X10*3/uL (4.8-10.8)
[2022-04-09 13:06] LABS: Alanine Aminotransferase 25 U/L (0-40); Alkaline Phosphatase 245 U/L (39-117); Anion Gap 11 (12-20); Aspartate Amino Transferase 34 U/L (5-37); Bilirubin Total 1.2 mg/dL (0.0-1.0); Blood Urea Nitrogen 6 mg/dL (9-16); Calcium 8.9 mg/dL (8.4-10.2); Carbon Dioxide 28 mmol/L (22-29); Chloride 105 mmol/L (96-108); Estimated Glomerular Filt Rate > 60; Glucose Random 214 mg/dL (60-115); Potassium 3.6 mmol/L (3.3-5.1); Sodium 140 mmol/L (135-145); Total Protein 5.7 g/dL (6.5-8.0)
[2022-04-09 13:35] LABS: SLIDE REVIEW VERIFIED
== END 2022-04-09 06:38 | disposition home or self-care (01) ==
LOC: HO.LHD 06:37
PROVIDERS: Visit Provider Internal Medicine Medical Oncology
DX: C15.9 Malignant neoplasm of esophagus, unspecified (principal); Z79.899 Other long term (current) drug therapy
CPT/HCPCS: 36415; 80053; 85025

== ENCOUNTER 2022-04-15 09:17 | Outpatient (REF) | payer MEDICARE, SELFPAY ==
--- NOTE | ~2022-04-15 | CT_ITS ---
EXAMINATION: CT CHEST WITH CONTRAST CLINICAL INFORMATION: Follow-up on CA esophagus. COMPARISON: None TECHNIQUE: Multidetector volumetric CT imaging of the chest was obtained after the administration of 65 mL of Omnipaque 350 intravenous contrast without immediate adverse reactions. Axial MIP volume rendering provided. Sagittal and coronal reformatted images were obtained. This CT examination was performed using dose optimization techniques as appropriate, variously including the following: *Automated exposure control *Adjustment of mA and/or kV according to patient size (this includes techniques or standardized protocols for targeted exams where dose is matched to indication/reason for exam; i.e. extremities or head) *Use of iterative reconstruction technique DLP: 108 mGy-cm FINDINGS: DYNAMITE SHOOTER: Well-inflated lungs. LUNGS: The lungs are well-expanded with scattered calcified 1-2 mm nodules of the right upper lobe image 50/6, 52/6, 67/6, left upper lobe axial image 92/6, right lower lobe axial image 94/6, noncalcified 3 mm nodule right lower lobe superior segment axial image 96/6, calcified peripheral nodule right lower lobe axial image 97/6, 3 mm calcified nodule right lower lobe laterally, in the superior segment axial image 120/6. All these nodules are stable. There is dependent right lower lobe atelectasis. MEDIASTINUM: The thyroid lobes are symmetric and normal. The central trachea and the bronchi are widely patent. There are coronary artery calcifications. The heart size is normal. The great vessels are of normal caliber. There is diffuse mural thickening involving the mid and the distal esophagus, similar to the previous study. Mild wall thickening of the GE junction is noted as well. There is a right central venous port with its tip in the [id number] SVC. PLEURA: There is no pleural effusion. No pleural mass or thickening. AXILLA: No lymphadenopathy. UPPER ABDOMEN: Visualized liver, spleen, pancreas and bilateral adrenal glands are unremarkable. OSSEOUS STRUCTURES: No gross lytic or sclerotic process is seen. CT/CT chest w con IMPRESSION: Diffuse mural thickening involving mid and distal esophagus similar to previous study. There is mild wall thickening of the GE junction as well. There are several calcified and noncalcified nodules unchanged to the previous study. There are no new nodules. There is no abnormal mediastinal or axillary lymphadenopathy. Fleischner guidelines were followed.
[2022-04-15] MEDS: iohexoL 300 MG/ML 100 ML INFUS..BTL IV (10:31)
== END 2022-04-15 09:18 | disposition home or self-care (01) ==
LOC: HO.CT 09:17
PROVIDERS: Visit Provider Internal Medicine Medical Oncology
DX: C15.4 Malignant neoplasm of middle third of esophagus (principal)
CPT/HCPCS: 71260; Q9967

== ENCOUNTER 2022-04-19 06:37 | Outpatient (REF) | payer MEDICARE, SELFPAY ==
[2022-04-19 12:01] LABS: MANUAL DIFF FLAG NO
[2022-04-19 12:03] LABS: Basophils Percent Auto 0.3 % (0-2); Eosinophils Absolute Auto 0.1 X10*3/uL (0.0-0.4); Eosinophils Percent Auto 0.9 % (0-4); Hematocrit 36.3 % (42.0-52.0); Hemoglobin 11.4 g/dl (14.0-18.0); Imm Gran Abs Auto 0.04 X10*3/uL (0.00-0.03); Imm Gran Pct Auto 0.7 % (0.0-0.4); Lymphocytes Absolute Auto 1.8 X10*3/uL (1.2-4.9); Lymphocytes Percent Auto 31.7 % (20-40); Mean Corpuscular HGB Conc 31.4 g/dl (31.0-36.0); Mean Corpuscular Hemoglobin 29.6 pg (27.0-33.0); Mean Corpuscular Volume 94.3 fL (80.0-98.0); Mean Platelet Volume 10.6 fL (9.4-12.4); Monocytes Absolute Auto 0.8 X10*3/uL (0.1-1.2); Monocytes Percent Auto 13.2 % (2-11); Neutrophils Absolute Auto 3.1 x10*3/uL (2.0-8.3); Neutrophils Percent Auto 53.2 % (45-73); Platelet Count 232 X10*3/uL (160-400); Red Blood Count 3.85 X10*6/uL (4.60-5.80); Red Cell Distribution Width 21.9 % (11.0-16.0); White Blood Count 5.8 X10*3/uL (4.8-10.8)
[2022-04-19 12:42] LABS: Alanine Aminotransferase 20 U/L (0-40); Alkaline Phosphatase 254 U/L (39-117); Anion Gap 12 (12-20); Aspartate Amino Transferase 34 U/L (5-37); Bilirubin Direct 0.3 mg/dL (0.0-0.5); Bilirubin Total 0.7 mg/dL (0.0-1.0); Blood Urea Nitrogen 7 mg/dL (9-16); Calcium 8.5 mg/dL (8.4-10.2); Carbon Dioxide 26 mmol/L (22-29); Chloride 106 mmol/L (96-108); Estimated Glomerular Filt Rate > 60; Glucose Random 188 mg/dL (60-115); Potassium 4.3 mmol/L (3.3-5.1); Sodium 140 mmol/L (135-145); Total Protein 5.9 g/dL (6.5-8.0)
== END 2022-04-19 06:38 | disposition home or self-care (01) ==
LOC: HO.LHD 06:37
PROVIDERS: Visit Provider Internal Medicine Medical Oncology
DX: C15.4 Malignant neoplasm of middle third of esophagus (principal)
CPT/HCPCS: 36415; 80053; 82248; 85025

== ENCOUNTER 2022-05-03 14:42 | Outpatient (REF) | payer MEDICARE, SELFPAY ==
[2022-05-03 12:59] LABS: MANUAL DIFF FLAG NO
[2022-05-03 13:09] LABS: Basophils Percent Auto 0.3 % (0-2); Eosinophils Absolute Auto 0.1 X10*3/uL (0.0-0.4); Eosinophils Percent Auto 0.7 % (0-4); Hematocrit 34.1 % (42.0-52.0); Hemoglobin 10.9 g/dl (14.0-18.0); Imm Gran Abs Auto 0.05 X10*3/uL (0.00-0.03); Imm Gran Pct Auto 0.7 % (0.0-0.4); Lymphocytes Absolute Auto 2.3 X10*3/uL (1.2-4.9); Lymphocytes Percent Auto 29.9 % (20-40); Mean Corpuscular Hemoglobin 29.9 pg (27.0-33.0); Mean Corpuscular Volume 93.4 fL (80.0-98.0); Mean Platelet Volume 11.5 fL (9.4-12.4); Monocytes Absolute Auto 0.8 X10*3/uL (0.1-1.2); Monocytes Percent Auto 10.3 % (2-11); Neutrophils Absolute Auto 4.4 x10*3/uL (2.0-8.3); Neutrophils Percent Auto 58.1 % (45-73); Platelet Count 92 X10*3/uL (160-400); Red Blood Count 3.65 X10*6/uL (4.60-5.80); Red Cell Distribution Width 20.3 % (11.0-16.0); White Blood Count 7.6 X10*3/uL (4.8-10.8)
[2022-05-03 13:35] LABS: Alanine Aminotransferase 18 U/L (0-40); Albumin Level 3.2 g/dL (3.5-5.0); Alkaline Phosphatase 305 U/L (39-117); Anion Gap 13 (12-20); Aspartate Amino Transferase 30 U/L (5-37); Bilirubin Total 0.7 mg/dL (0.0-1.0); Blood Urea Nitrogen 7 mg/dL (9-16); Calcium 8.5 mg/dL (8.4-10.2); Carbon Dioxide 23 mmol/L (22-29); Chloride 108 mmol/L (96-108); Estimated Glomerular Filt Rate > 60; Glucose Random 229 mg/dL (60-115); Potassium 3.4 mmol/L (3.3-5.1); Sodium 141 mmol/L (135-145); Total Protein 6.1 g/dL (6.5-8.0)
== END 2022-05-03 14:43 | disposition home or self-care (01) ==
LOC: HO.LHD 14:42
PROVIDERS: Visit Provider Internal Medicine Medical Oncology
DX: C15.4 Malignant neoplasm of middle third of esophagus (principal)
CPT/HCPCS: 36415; 80053; 85025

== ENCOUNTER 2022-05-18 08:22 | Outpatient (REF) | payer MEDICARE, SELFPAY | END 2022-05-18 08:23 | disposition home or self-care (01) | LOC: HO.LHD 08:22 | PROVIDERS: Visit Provider Internal Medicine Medical Oncology | DX: Z13.89 Encounter for screening for other disorder (principal) ==

== ENCOUNTER 2022-05-28 19:27 | Emergency (ER) | payer MEDICARE, SELFPAY ==
[2022-05-28 19:37] VITALS: BP 129/88; PULSE 105; RESP 16; O2SAT 95; BMI 18.4
[2022-05-28 20:46] LABS: Hematocrit 29.7 % (42.0-52.0); Red Cell Distribution Width 16.8 % (11.0-16.0)
[2022-05-28 20:48] LABS: Hemoglobin 9.8 g/dl (14.0-18.0); Mean Corpuscular Hemoglobin 30.7 pg (27.0-33.0); Mean Corpuscular Volume 93.1 fL (80.0-98.0); Red Blood Count 3.19 X10*6/uL (4.60-5.80)
[2022-05-28 20:54] LABS: PLT ABN DIST 1; WBC ABN SCTR FOR CBC 1
[2022-05-28 20:58] LABS: COVID-19 Test Negative (Negative)
[2022-05-28 21:01] LABS: Alanine Aminotransferase 19 U/L (0-40); Albumin Level 3.4 g/dL (3.5-5.0); Alkaline Phosphatase 230 U/L (39-117); Anion Gap 13 (12-20); Aspartate Amino Transferase 28 U/L (5-37); Bilirubin Total 1.4 mg/dL (0.0-1.0); Blood Urea Nitrogen 8 mg/dL (9-16); Calcium 8.6 mg/dL (8.4-10.2); Carbon Dioxide 25 mmol/L (22-29); Chloride 104 mmol/L (96-108); Creatinine Clr Calc Pharmacy 78.6; Estimated Glomerular Filt Rate > 60; Glucose Random 197 mg/dL (60-115); Potassium 4.2 mmol/L (3.3-5.1); Sodium 138 mmol/L (135-145); Total Protein 6.1 g/dL (6.5-8.0)
[2022-05-28 21:07] LABS: Platelet Count 19 X10*3/uL (160-400)
[2022-05-28 21:21] LABS: Band Neutrophils Percent 6 % (3-5); Basophils Percent Manual 1 % (0-2); Eosinophils Percent Manual 2 % (0-4); Lymphocytes Absolute Manual 1.4 X10*3/uL (1.2-4.9); Lymphocytes Percent Manual 70 % (20-40); Monocytes Absolute Manual 0.3 X10*3/uL (0.1-1.2); Monocytes Percent Manual 14 % (2-11); Neutrophils Absolute Manual 0.3 X10*3/uL (2.0-8.3); Neutrophils Percent Manual 7 % (45-73); Platelet Estimate DECREASED (NORMAL); Platelet Morphology Comment NORMAL
[2022-05-28 21:22] LABS: RBC Morphology NOTED; Spherocytes 2+ (3-5) /OIF; Tear Drop Cells 1+ (0-2) /OIF
--- NOTE | 2022-05-28 21:23 | ED.GENADULT ---
HPI - General Adult General Chief complaint: General Medical Stated complaint: dehydration, chemo tx at present Time Seen by Provider: 05/28/22 20:43 Source: patient, family (Daughter) and freelance interpreter/translator Mode of arrival: ambulatory History of Present Illness HPI narrative: This is a 71-year-old male with history esophageal cancer, currently under chemo with last treatment last week and presents with having felt increasing fatigue and weakness since that transfusion. Patient uses a wheelchair at baseline. Patient denies any fever, chills but has had a chronic cough with sore throat and otherwise denies shortness of breath, chest pain/palpitations, nausea/vomiting/abdominal pain/diarrhea and denies any urinary symptoms. Patient states that along with his fatigue his appetite ?disappeared? and he decrease the male to food and water that he was consuming with noted changes of color in his urine. Patient states that yesterday he started to feel more thirsty and began drinking water. He otherwise denies any gum bleeding, bruising, melena/hematochezia/hematemesis. Related Data Home Medications Medication Instructions Recorded Confirmed insulin aspar prot-insulin aspart 30 unit subcut DAILY@0730 07/06/21 03/30/22 100 unit/mL (70-30) subcutaneous pen (Novolog Mix 70-30FlexPen U-100) atorvastatin 40 mg tablet 40 mg PO BEDTIME 01/17/22 03/30/22 docusate sodium 100 mg capsule 200 mg PO BEDTIME 01/17/22 03/30/22 Previous Rx's Medication Instructions Recorded lancets 33 gauge (TRUEplus Lancets) #100 ea 06/10/21 lancets 28 gauge (FreeStyle #200 ea 06/16/21 Lancets) ondansetron 8 mg disintegrating 8 mg PO Q8H PRN Nausea #60 tabs 12/10/21 tablet cefuroxime axetil 500 mg tablet 500 mg PO BID #16 tabs 01/19/22 mirtazapine 30 mg tablet 30 mg PO BEDTIME #90 tabs 02/11/22 lorazepam 0.5 mg tablet 0.5 mg PO Q8H PRN anxiety 30 days 03/08/22 #90 tabs losartan 100 mg tablet 100 mg PO BEDTIME 90 days #90 tabs 03/08/22 flash glucose scanning reader #1 ea 03/10/22 (FreeStyle Nate 2 [place]) flash glucose sensor (FreeStyle #2 ea 03/10/22 Nate 2 Sensor) glucagon 0.5 mg/0.1 mL 0.5 mg (0.1 mL) subcut ONCE #0.2 mL 03/16/22 subcutaneous auto-injector (Gvoke HypoPen 2-Pack) insulin aspar prot-insulin aspart 22 unit (0.22 mL) subcut 04/08/22 100 unit/mL (70-30) subcutaneous DAILY@1700 #15 mL pen (Novolog Mix 70-30FlexPen U-100) metoprolol succinate 25 mg 12.5 mg PO DAILY 90 days #45 tabs 04/08/22 tablet,extended release 24 hr omeprazole 20 mg capsule,delayed 20 mg PO BID@0630,1630 #60 caps 04/13/22 release tramadol 50 mg tablet 50 mg PO Q6-8H PRN pain 30 days 04/13/22 #120 tabs blood sugar diagnostic (FreeStyle #100 ea 04/20/22 Lite Strips) dextromethorphan-guaifenesin 5 10 ml PO Q4-8H PRN Cough #300 mL 05/04/22 mg-100 mg/5 mL oral liquid (Robitussin Cough-Chest Congestion DM) cholecalciferol (vitamin D3) 25 25 mcg PO DAILY 90 days #90 caps 05/06/22 mcg (1,000 unit) capsule (Vitamin D3) ferrous sulfate 325 mg (65 mg 325 mg PO DAILY 90 days #90 tabs 05/06/22 iron) tablet Magic Mouthwash 10 ml PO QID #240 mL 05/09/22 Diphen/Lido/Antacid 1:1:1 240 mL suspension gabapentin 100 mg capsule 200 mg PO BEDTIME #180 caps 05/10/22 pen needle, diabetic 32 gauge x #100 ea 05/20/22 (Pentips) acyclovir 400 mg tablet 400 mg PO TID #30 tabs 05/27/22 Allergies Allergy/AdvReac Type Severity Reaction Status Date / Time No Known Allergies Allergy Verified 05/28/22 19:42 Review of Systems Review of Systems: Pertinent positives and negatives as stated in HPI 10 point review of systems is otherwise negative. [facility] Past Medical History Source: nursing notes reviewed Medical History Adenocarcinoma of cardio-esophageal junction Anxiety Benign essential hypertension Constipation Depression Diabetes type 2, uncontrolled Diabetic nephropathy associated with type 2 diabetes mellitus Diabetic neuropathy Diabetic neuropathy associated with type 2 diabetes mellitus Dyslipidemia HLD (hyperlipidemia) Hypertension Keratotic lesion Left below-knee amputee assisted (current) use of insulin Pure hypercholesterolemia Type 2 diabetes mellitus with diabetic polyneuropathy Vitamin D deficiency Surgical History History of atherectomy History of left below knee amputation Status post below-knee amputation of left lower extremity Family History Family History Father Diabetes Hypertension Mother No problems noted. Social History Social History Household Members: Family Housing: House Alcohol intake: never Patient Tobacco Use Status: Never used Tobacco e-Cigarette/Vaping Use: Never Used Second Hand Smoke Exposure: Yes Advance Directives: Yes Advance Directives on File: Yes Advance Directives Date on File: 08/19/20 service: No Current occupational status: retired and disabled Cognitive needs: No (cane/wheelchair) Hearing needs: No Vision needs: Yes (glasses) Physical Exam ED Vital Signs: Vital Signs - 24 hr 05/28/22 19:37 Pulse Rate 105 H Respiratory Rate 16 Blood Pressure 129/88 Pulse Oximetry 95 Oxygen Delivery Method Room Air BMI result Body Mass Index 18.4 VITAL SIGNS: Reviewed. GENERAL: Cachectic, chronically ill, in no acute distress. HEAD: Normocephalic/atraumatic EYES: PERRLA, EOMI, pale conjunctiva EARS: Ext canals without abnormality OROPHARYNX: no oral lesions noted, posterior pharynx clear, pale mucosa without noted bleeding/stigmata of bleeding NECK: Supple, no adenopathy LUNGS: Normal breath sounds, no tachypnea/wheeze/rhonchi/rales. SpO2<95> CARDIOVASCULAR: Regular rate and rhythm without noted murmurs, no JVD or lower extremity edema. ABDOMEN: Soft, non-tender, non-distended with bowel sounds. MUSCULOSKELETAL: No tenderness, deformities, or effusions noted on gross inspection. EXTREMITIES: No cyanosis, clubbing or edema; LLE: BKA. SKIN: Inspection of the skin reveals no rashes, petechiae, ecchymosis NEUROLOGIC: Alert and oriented x 4. Strength and sensation to light touch were grossly intact x 4. Course Course Course Narrative: 71-year-old male with history and clinical presentation consistent with fatigued that is likely related to underlying condition and on review of Dr. Anna's notes patient is noted to have an ulcerated and friable partially obstructing mass extending from the GE junction through the cardia. The mass is circumferential, hypoechoic, fairly well-circumscribed and homogeneous this is considered to be a T3 lesion . Patient previously completed radiation and low-dose carboplatin and Taxol in 2019 and now with this disease recurrence he has been started on systemic chemotherapy with FOLFOX plus nivolumab. No strongly that patient's symptoms are related to chemotherapy and less likely felt to be related to infection, and anemia. However, I will rule these possibilities and discuss the case with Dr Anna. Re-evaluation, patient feels much better, repeat lactic acid is 1.8 and patient is had 500 mL normal saline. He is otherwise stable for discharge to home. Reevaluation(s) Reevaluation #1: I discussed this case with Dr. Andrade who recommends and feels that patient is stable for discharge to home after rehydration as current chemotherapy regimen is consistent with patient's lab values which were discussed at length. Time: 21:45 Medical Decision Making Lab Data Result diagrams: 05/28/22 20:26 05/28/22 20:26 Labs: Lab Results 05/28/22 05/28/22 05/28/22 Range/Units 20:26 20:26 20:26 WBC 2.0 L (4.8-10.8) X10*3/uL RBC 3.19 L (4.60-5.80) X10*6/uL Hgb 9.8 L (14.0-18.0) g/dl Hct 29.7 L (42.0-52.0) % MCV 93.1 (80.0-98.0) fL MCH 30.7 (27.0-33.0) pg MCHC 33.0 (31.0-36.0) g/dl RDW 16.8 H (11.0-16.0) % Plt Count 19 L* D (160-400) X10*3/uL MPV TNP Immature Gran % (Auto) Cancelled Neut % (Auto) Cancelled Lymph % (Auto) Cancelled [place] % (Auto) Cancelled Eos % (Auto) Cancelled Baso % (Auto) Cancelled Lymph # (Auto) Cancelled [place] # (Auto) Cancelled Eos # (Auto) Cancelled Baso # (Auto) Cancelled Abs Immat Gran (auto) Cancelled Absolute Neuts (auto) Cancelled Absolute Nucleated RBC 0.000 (0.0-0.012) X10*3/uL Nucleated RBC % (auto) 0.0 (0.0-0.2) /100WBC Neutrophils % (Manual) 7 L (45-73) % Band Neutrophils % 6 H (3-5) % Lymphocytes % (Manual) 70 H (20-40) % Monocytes % (Manual) 14 H (2-11) % Eosinophils % (Manual) 2 (0-4) % Basophils % (Manual) 1 (0-2) % Abs Neuts (Manual) 0.3 L (2.0-8.3) X10*3/uL Lymphocytes # (Manual) 1.4 (1.2-4.9) X10*3/uL Monocytes # (Manual) 0.3 (0.1-1.2) X10*3/uL Platelet Estimate DECREASED (NORMAL) Plt Morphology Comment NORMAL RBC Morphology NOTED Spherocytes 2+ (3-5) /OIF Tear Drop Cells 1+ (0-2) /OIF Sodium 138 (135-145) mmol/L Potassium 4.2 (3.3-5.1) mmol/L Chloride 104 (96-108) mmol/L Carbon Dioxide 25 (22-29) mmol/L Anion Gap 13 (12-20) BUN 8 L D (9-16) mg/dL Creatinine 0.69 (0.5-1.4) mg/dL Estim Creat Clear Calc 78.6 Estimated GFR > 60 Random Glucose 197 H (60-115) mg/dL Lactic Acid (0.5-2.0) mmol/L Calcium 8.6 (8.4-10.2) mg/dL Total Bilirubin 1.4 H (0.0-1.0) mg/dL AST 28 (5-37) U/L ALT 19 (0-40) U/L Alkaline Phosphatase 230 H (39-117) U/L Total Protein 6.1 L (6.5-8.0) g/dL Albumin 3.4 L (3.5-5.0) g/dL Urine Color Urine Appearance Urine pH (5.0-8.0) Ur Specific [place] (1.005-1.025) Urine Protein (NEG-TRACE) MG/DL Urine Glucose (UA) (NEG) MG/DL Urine Ketones (NEG) MG/DL Urine Blood (NEG) Urine Nitrite (NEG) Ur Leukocyte Esterase (NEG) Urine RBC (0) /HPF Urine WBC (0-4) /HPF Ur Squamous Epith Cells /LPF Urine Bacteria /LPF COVID-19 (JUAN CARLOS) Negative (Negative) COVID-19 Clin Com See Note 05/28/22 05/28/22 05/28/22 Range/Units 21:30 21:30 23:13 WBC (4.8-10.8) X10*3/uL RBC (4.60-5.80) X10*6/uL Hgb (14.0-18.0) g/dl Hct (42.0-52.0) % MCV (80.0-98.0) fL MCH (27.0-33.0) pg MCHC (31.0-36.0) g/dl RDW (11.0-16.0) % Plt Count (160-400) X10*3/uL MPV Immature Gran % (Auto) Neut % (Auto) Lymph % (Auto) [place] % (Auto) Eos % (Auto) Baso % (Auto) Lymph # (Auto) [place] # (Auto) Eos # (Auto) Baso # (Auto) Abs Immat Gran (auto) Absolute Neuts (auto) Absolute Nucleated RBC (0.0-0.012) X10*3/uL Nucleated RBC % (auto) (0.0-0.2) /100WBC Neutrophils % (Manual) (45-73) % Band Neutrophils % (3-5) % Lymphocytes % (Manual) (20-40) % Monocytes % (Manual) (2-11) % Eosinophils % (Manual) (0-4) % Basophils % (Manual) (0-2) % Abs Neuts (Manual) (2.0-8.3) X10*3/uL Lymphocytes # (Manual) (1.2-4.9) X10*3/uL Monocytes # (Manual) (0.1-1.2) X10*3/uL Platelet Estimate (NORMAL) Plt Morphology Comment RBC Morphology Spherocytes /OIF Tear Drop Cells /OIF Sodium (135-145) mmol/L Potassium (3.3-5.1) mmol/L Chloride (96-108) mmol/L Carbon Dioxide (22-29) mmol/L Anion Gap (12-20) BUN (9-16) mg/dL Creatinine (0.5-1.4) mg/dL Estim Creat Clear Calc Estimated GFR Random Glucose (60-115) mg/dL Lactic Acid 2.8 H* 1.8 (0.5-2.0) mmol/L Calcium (8.4-10.2) mg/dL Total Bilirubin (0.0-1.0) mg/dL AST (5-37) U/L ALT (0-40) U/L Alkaline Phosphatase (39-117) U/L Total Protein (6.5-8.0) g/dL Albumin (3.5-5.0) g/dL Urine Color YELLOW Urine Appearance CLEAR Urine pH 6.0 (5.0-8.0) Ur Specific [place] 1.025 (1.005-1.025) Urine Protein TRACE (NEG-TRACE) MG/DL Urine Glucose (UA) >=1000 H (NEG) MG/DL Urine Ketones 15 (NEG) MG/DL Urine Blood NEG (NEG) Urine Nitrite NEG (NEG) Ur Leukocyte Esterase NEG (NEG) Urine RBC 0 (0) /HPF Urine WBC 0 (0-4) /HPF Ur Squamous Epith Cells NONE /LPF Urine Bacteria NONE /LPF COVID-19 (JUAN CARLOS) (Negative) COVID-19 Clin Com Discharge Plan Discharge Clinical Impression: Mild dehydration, Fatigue, Drug side effects, Thrombocytopenia Patient Disposition: Home, Self-Care Instructions: Dehydration (ED), Fatigue (ED), Thrombocytopenia (ED) Additional Instructions: 1. Reanudar todos los medicamentos caseros seg?n lo prescrito. 2. Contin?e bebiendo christopher agua. 3. Dori un seguimiento con el Dr. Anna el lunes por la ma?edgar. Regrese a la katharina de emergencias si los s?ntomas empeoran. Prescriptions: No Action (DME) lancets [TRUEplus Lancets] 33 gauge misc See Rx Instructions .Route Qty: 100 11RF Rx Instructions: 4x daily (DME) lancets [FreeStyle Lancets] 28 gauge misc See Rx Instructions .ROUTE .MEDSUPPLY Qty: 200 6RF Rx Instructions: 4 times a day mirtazapine 30 mg tablet 30 mg PO BEDTIME Qty: 90 1RF losartan 100 mg tablet 100 mg PO BEDTIME 90 Days Qty: 90 1RF Gvoke HypoPen 2-Pack 0.5 mg/0.1 mL auto-injector 0.5 mg subcut ONCE Qty: 0.2 4RF metoprolol succinate 25 mg tablet extended release 24 hr 12.5 mg PO DAILY 90 Days Qty: 45 4RF insulin asp prt-insulin aspart [Novolog Mix 70-30FlexPen U-100] 100 unit/mL (70-30) insulin pen 22 unit subcut DAILY@1700 Qty: 15 0RF omeprazole 20 mg capsule,delayed release(DR/EC) 20 mg PO BID@0630,1630 Qty: 60 1RF tramadol 50 mg tablet 50 mg PO Q6-8H PRN (Reason: pain) 30 Days Qty: 120 1RF (DME) FreeStyle Lite Strips Strip See Rx Instructions .Route Qty: 100 5RF Rx Instructions: Tests 4 X/day cholecalciferol (vitamin D3) [Vitamin D3] 25 mcg (1,000 unit) capsule 25 mcg PO DAILY 90 Days Qty: 90 3RF ferrous sulfate 325 mg (65 mg iron) tablet 325 mg PO DAILY 90 Days Qty: 90 3RF gabapentin 100 mg capsule 200 mg PO BEDTIME Qty: 180 0RF (DME) pen needle, diabetic [Pentips] 32 gauge x /32 needle See Rx Instructions .Route Qty: 100 11RF Rx Instructions: 4x daily ondansetron 8 mg Tablet,Disintegrating 8 mg PO Q8H PRN (Reason: Nausea) Qty: 60 4RF Robitussin Cough-Chest [place] DM 5-100 mg/5 mL Liquid 10 ml PO Q4-8H PRN (Reason: Cough) Qty: 300 4RF Magic Mouthwash Diphen/Lido/Antacid 1:1:1 240 mL Suspension 10 ml PO QID Qty: 240 4RF Rx Instructions: Lidocaine Viscous 2 % 80mL; diphenhydramine 12.5 mg/5 mL 80mL; aluminum-mag hydrox-simeth [id number]/5mL 80mL acyclovir 400 mg Tablet 400 mg PO TID Qty: 30 2RF atorvastatin 40 mg tablet 40 mg PO BEDTIME docusate sodium 100 mg capsule 200 mg PO BEDTIME cefuroxime axetil 500 mg tablet 500 mg PO BID Qty: 16 0RF lorazepam 0.5 mg tablet 0.5 mg PO Q8H PRN (Reason: anxiety) 30 Days Qty: 90 2RF Rx Instructions: take 1 tablet by mouth every 8 hours as needed insulin asp prt-insulin aspart [Novolog Mix 70-30FlexPen U-100] 100 unit/mL (70-30) insulin pen 30 unit subcut DAILY@0730 (DME) FreeStyle Nate 2 [place] Misc See Rx Instructions .ROUTE .MEDSUPPLY Qty: 1 0RF Rx Instructions: As directed (DME) FreeStyle Nate 2 Sensor Kit See Rx Instructions .ROUTE .MEDSUPPLY Qty: 2 11RF Rx Instructions: Every 14 days Referrals: oNrm Hooks MD [Primary Care Provider] - Juan Anna MD [Physician] - Print Language: Vietnamese
[2022-05-28] MEDS: 0.9 % Sodium Chloride 500 ML 999 ML IV (21:42)
[2022-05-28 21:46] LABS: Appearance Urine CLEAR; Color Urine YELLOW; Glucose Urine UA >=1000 MG/DL (NEG); Leukocyte Esterase Urine NEG (NEG); Nitrite Urine NEG (NEG); Specific Gravity - Urine 1.025 (1.005-1.025); Urine Blood NEG (NEG); Urine Ketones 15 MG/DL (NEG); Urine Protein TRACE MG/DL (NEG-TRACE)
[2022-05-28 22:00] LABS: RBC Urine 0 /HPF (0); WBC Urine 0 /HPF (0-4)
[2022-05-28 22:10] LABS: Lactic Acid 2.8 mmol/L (0.5-2.0)
[2022-05-28 23:33] LABS: Lactic Acid 1.8 mmol/L (0.5-2.0)
[2022-05-28 23:39] LABS: Reflex Lactate? Lactic Acid Added
--- NOTE | 2022-05-28 23:58 | PC.NURSE ---
KAREN Ring stated the recollect of the type and screen did not need to be redrawn due to patient being discharged.
[2022-05-29] VITALS: BP 137/69; PULSE 88; RESP 16; TEMP 36.4; O2SAT 99
== END 2022-05-29 00:27 | disposition home or self-care (01) ==
PROVIDERS: Emergency Provider Student in an Organized Health Care Education/Training Program; PCP Internal Medicine
DX: E86.0 Dehydration (principal); R53.83 Other fatigue; D69.6 Thrombocytopenia, unspecified; T45.1X5A Adverse effect of antineoplastic and immunosuppressive drugs, initial encounter; Y92.009 Unspecified place in unspecified non-institutional (private) residence as the place of occurrence of the external cause; Z20.822 Contact with and (suspected) exposure to COVID-19; C16.0 Malignant neoplasm of cardia; E11.9 Type 2 diabetes mellitus without complications; I10 Essential (primary) hypertension; E78.5 Hyperlipidemia, unspecified; F41.9 Anxiety disorder, unspecified; Z89.512 Acquired absence of left leg below knee; Z92.21 Personal history of antineoplastic chemotherapy; Z79.4 Long term (current) use of insulin; Z79.02 Long term (current) use of antithrombotics/antiplatelets; Z79.899 Other long term (current) drug therapy
CPT/HCPCS: 36415; 80053; 81001; 83605; 85007; 85025; 85027; 87040; 87635; 96360; 99283; 99284

== ENCOUNTER 2022-05-31 | Outpatient (REF) | payer MEDICARE, SELFPAY | END 2022-05-31 00:01 | disposition home or self-care (01) | LOC: HO.LHD | PROVIDERS: Visit Provider Internal Medicine Medical Oncology | DX: Z13.89 Encounter for screening for other disorder (principal) ==

== ENCOUNTER → 2022-06-02 08:05 | Outpatient (BNVA) | payer MEDICARE, SELFPAY | PROVIDERS: PCP Internal Medicine; Visit Provider Internal Medicine Endocrinology, Diabetes & Metabolism | DX: E11.65 Type 2 diabetes mellitus with hyperglycemia (principal); Z79.4 Long term (current) use of insulin | CPT/HCPCS: 82947; 99212 ==

== ENCOUNTER 2022-06-19 18:46 | Inpatient (IN) | payer MEDICARE, SELFPAY ==
--- NOTE | ~2022-06-19 | CT_ITS ---
EXAMINATION: CT ANGIOGRAM OF THE CHEST WITH AND WITHOUT CONTRAST (CT PULMONARY ANGIOGRAM FOR PE) CLINICAL INFORMATION: Reason for Exam SOB, tachycardia, leukocytosis COMPARISON: CT chest dated 04/15/2022 and 02/10/2022 TECHNIQUE: Prior to contrast administration, noncontrast localization images were obtained. Subsequently, multidetector volumetric imaging was performed from the thoracic inlet to below the diaphragms following the administration of 65 mL Omnipaque 350 intravenous contrast. No contrast reaction reported Sagittal, coronal, and MIP oblique sagittal reformatted images were obtained on the CT workstation, uploaded to PACS, and reviewed. This CT examination was performed using dose optimization techniques as appropriate, variously including the following: *Automated exposure control *Adjustment of mA and/or kV according to patient size (this includes techniques or standardized protocols for targeted exams where dose is matched to indication/reason for exam; i.e. extremities or head) *Use of iterative reconstruction technique Total exam dose-length product 221 mGy-cm FINDINGS: QUALITY OF STUDY/CONTRAST BOLUS: Satisfactory. PULMONARY ARTERIES: No central or segmental pulmonary emboli. THORACIC AORTA: No aneurysm or dissection. LUNG: No acute pulmonary parenchymal abnormalities. Mild diffuse bronchial wall thickening without bronchiectasis. There are 2 stable subpleural nodules in the periphery of the right lower lobe (see balbuena images). Adjacent to the uterus is a new 3 mm subpleural opacity. There are a few scattered calcified granulomata. PLEURA: No pleural effusion or pneumothorax. MEDIASTINUM: Normal heart size. No pericardial effusion. No hilar or mediastinal lymphadenopathy. No evidence of septal bowing or right heart strain. Diffuse wall thickening of the mid and distal esophagus and esophagogastric junction redemonstrated. CHEST WALL/AXILLA: No axillary or internal mammary lymphadenopathy. OSSEOUS STRUCTURES: No acute or suspicious osseous abnormality. UPPER ABDOMEN: Unremarkable. No reflux of contrast into the hepatic veins to suggest elevated right heart pressures. CT/CT angio chest PE protocol IMPRESSION: * No evidence of pulmonary embolism. * No acute pulmonary parenchymal abnormalities. * This is seen right lower lobe pulmonary nodules are stable, although there is a new adjacent 3 mm subpleural nodular opacity. Attention on follow-up. * Stable diffuse wall thickening of the mid and distal esophagus/esophagogastric junction. VTE: negative
--- NOTE | ~2022-06-19 | XR_ITS ---
EXAMINATION: XR CHEST CLINICAL INFORMATION: Cough COMPARISON: 01/17/2022 TECHNIQUE: Frontal view of the chest was obtained. FINDINGS: No focal consolidation, pulmonary edema, or pleural effusion. Stable cardiomediastinal silhouette. XR/XR chest 1V IMPRESSION: No acute cardiopulmonary findings.
[2022-06-19 18:50] VITALS: BP 125/70; PULSE 129; RESP 18; TEMP 36.8; O2SAT 98; BMI 19.0
--- NOTE | 2022-06-19 19:22 | PC.NURSE ---
Assumed care of this pt. at 1900 - report from Amy Gomez RN
--- NOTE | 2022-06-19 19:23 | ED_ITS ---
HPI - Male Genitourinary General Chief complaint: Urogenital-Male Stated complaint: abd pain Time Seen by Provider: 06/19/22 19:00 Source: patient and family Mode of arrival: ambulatory History of Present Illness HPI Narrative: 71-year-old male with presentation for constipation and an inability to void since last night and just completed chemo today. He is currently receiving chemotherapy for esophageal malignancy. Patient is received multiple enemas and actually has began having bowel movements as per the daughter who is at bedside. On bladder scan patient is noted to be in a urinary retention. Patient denies any fever, chills, shortness of breath, chest pain/palpitations, nausea/vomiting/abdominal pain but does report some urinary burning. Related Data Home Medications Medication Instructions Recorded Confirmed aluminum-mag hydroxide-simethicone 80 ml PO USEASDIRECTD 06/19/22 06/19/22 400 mg-400 mg-40 mg/5 mL oral susp (Antacid Maximum Strength) atorvastatin 40 mg tablet 1 tab PO QPM 06/19/22 06/19/22 blood sugar diagnostic (FreeStyle 06/19/22 06/19/22 Lite Strips) cholecalciferol (vitamin D3) 25 1 cap PO QAM 06/19/22 06/19/22 mcg (1,000 unit) capsule (Vitamin D3) diphenhydramine HCl 12.5 mg/5 mL See Rx Instructions .Route .COMPLEX 06/19/22 06/19/22 oral liquid (Allergy Relief (diphenhydramine)) docusate sodium 100 mg capsule 2 cap PO QPM 06/19/22 06/19/22 ferrous sulfate 325 mg (65 mg 1 tab PO QAM 06/19/22 06/19/22 iron) tablet (FeroSul) gabapentin 100 mg capsule 2 cap PO BEDTIME 06/19/22 06/19/22 glucagon 0.5 mg/0.1 mL 0.1 ml subcut DAILY diabetes 06/19/22 06/19/22 subcutaneous auto-injector (Gvoke mellitus HypoPen 2-Pack) insulin aspar prot-insulin aspart 22 unit subcut QPM 06/19/22 06/19/22 100 unit/mL (70-30) subcutaneous pen (Novolog Mix 70-30FlexPen U-100) lancets 33 gauge (TRUEplus Lancets) 06/19/22 06/19/22 lidocaine HCl 2 % mucosal solution See Rx Instructions .Route .COMPLEX 06/19/22 06/19/22 lorazepam 0.5 mg tablet 1 tab PO TID 06/19/22 06/19/22 losartan 100 mg tablet 1 tab PO QPM 06/19/22 06/19/22 metformin 500 mg tablet,extended 2 tab PO BID 06/19/22 06/19/22 release 24 hr metoprolol succinate 25 mg 0.5 tab PO QPM 06/19/22 06/19/22 tablet,extended release 24 hr mirtazapine 30 mg tablet 1 tab PO BEDTIME 06/19/22 06/19/22 omeprazole 20 mg capsule,delayed 20 mg PO DAILY 06/19/22 06/19/22 release ondansetron 8 mg disintegrating 1 tab PO Q8H PRN nausea 06/19/22 06/19/22 tablet pen needle, diabetic 32 gauge x 06/19/22 06/19/22 (Pentips) tramadol 50 mg tablet 1 tab PO Q6-8H PRN pain 06/19/22 06/19/22 Allergies Allergy/AdvReac Type Severity Reaction Status Date / Time No Known Allergies Allergy Verified 06/15/22 08:17 Review of Systems Review of Systems: Pertinent positives and negatives as stated in HPI and 10 point review of systems is otherwise negative. 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 Social History Social History Household Members: Family Housing: House Alcohol intake: never Patient Tobacco Use Status: Never used Tobacco e-Cigarette/Vaping Use: Never Used Second Hand Smoke Exposure: Yes Use of substances other than those prescribed or required for medical reasons: No Advance Directives: Yes Advance Directives on File: Yes Advance Directives Date on File: 08/19/20 service: No Current occupational status: retired and disabled Cognitive needs: No (cane/wheelchair) Hearing needs: No Vision needs: Yes (glasses) Physical Exam Vital Signs: Vital Signs: Last Vital Signs Temp 98.4 F 06/19/22 21:45 Pulse 98 06/19/22 21:45 Resp 16 06/19/22 21:45 BP 135/78 06/19/22 21:45 Pulse Ox 98 06/19/22 21:45 O2 Del Method 06/19/22 21:45 BMI result Body Mass Index 19.0 VITAL SIGNS: Reviewed. GENERAL: Cachectic, in no acute distress. HEAD: Normocephalic/atraumatic EYES: PERRLA, EOMI EARS: Ext canals without abnormality OROPHARYNX: no oral lesions noted, posterior pharynx clear LUNGS: Normal breath sounds. No adventitious sounds or accessory muscle use. SpO2<98> CARDIOVASCULAR: Regular rate and rhythm without noted murmurs, no JVD or lower extremity edema. ABDOMEN: Soft, discomfort in lower abdomen, non-distended with bowel sounds. MUSCULOSKELETAL: No tenderness, deformities, or effusions noted on gross inspection. EXTREMITIES: No cyanosis, clubbing or edema. SKIN: Inspection of the skin reveals no rashes NEUROLOGIC: Alert and oriented x 4. Strength and sensation to light touch were grossly intact x 4. Course Course Course Narrative: 1921: 71-year-old male with history and clinical presentation consistent with urinary retention, bladder scan demonstrates over 700 cc within the bladder and patient was successfully catheterized with a coude. On evaluation of patient's lab work he is noted to have a WBC-46.3 without any history or presentation consistent with infectious etiology. Although he is noted be tachycardic this has gradually resolved after Guerrero catheter placement. I'm discussing this with [facility] to ensure patient has not received Neulasta which could also explain patient's leukocytosis. Patient otherwise appears well. 2022: Dr Andrade confirms that patient received Neulasta but has not had a leukocytosis similar to this before. Patient with benign abdominal exam, urinalysis is negative, patient remains tachycardic. I informed the patient and his daughter of the results and the recommendations for admission. I discussed the case with inpatient hospitalist who accepts admission. Will also evaluate with D-dimer. MDM - Male Genitourinary Lab Data Result diagrams: 06/19/22 19:23 06/19/22 19:53 Labs: Lab Results 06/19/22 06/19/22 06/19/22 Range/Units 19:23 19:53 19:53 WBC 46.3 H* (4.8-10.8) X10*3/uL RBC 3.95 L (4.60-5.80) X10*6/uL Hgb 12.4 L (14.0-18.0) g/dl Hct 38.5 L (42.0-52.0) % MCV 97.5 (80.0-98.0) fL MCH 31.4 (27.0-33.0) pg MCHC 32.2 (31.0-36.0) g/dl RDW 18.0 H (11.0-16.0) % Plt Count 227 (160-400) X10*3/uL MPV 10.5 (9.4-12.4) fL Immature Gran % (Auto) 1.3 H (0.0-0.4) % Neut % (Auto) 95.2 H (45-73) % Lymph % (Auto) 1.4 L (20-40) % [place] % (Auto) 1.9 L (2-11) % Eos % (Auto) 0.0 (0-4) % Baso % (Auto) 0.2 (0-2) % Lymph # (Auto) 0.6 L (1.2-4.9) X10*3/uL [place] # (Auto) 0.9 (0.1-1.2) X10*3/uL Eos # (Auto) 0.0 (0.0-0.4) X10*3/uL Baso # (Auto) 0.1 (0.0-0.2) X10*3/uL Abs Immat Gran (auto) 0.61 H (0.00-0.03) X10*3/uL Absolute Neuts (auto) 44.1 H (2.0-8.3) x10*3/uL Absolute Nucleated RBC 0.000 (0.0-0.012) X10*3/uL Nucleated RBC % (auto) 0.0 (0.0-0.2) /100WBC Sodium 140 (135-145) mmol/L Potassium 3.6 (3.3-5.1) mmol/L Chloride 103 (96-108) mmol/L Carbon Dioxide 24 (22-29) mmol/L Anion Gap 17 (12-20) BUN 13 (9-16) mg/dL Creatinine 0.69 (0.5-1.4) mg/dL Estim Creat Clear Calc 81.0 Estimated GFR > 60 POC Glucose (60-115) mg/dL Random Glucose 178 H (60-115) mg/dL Lactic Acid 4.3 H* (0.5-2.0) mmol/L Calcium 8.8 (8.4-10.2) mg/dL Total Bilirubin 0.8 (0.0-1.0) mg/dL Direct Bilirubin 0.3 (0.0-0.5) mg/dL AST 61 H (5-37) U/L ALT 35 (0-40) U/L Alkaline Phosphatase 256 H (39-117) U/L Total Protein 6.7 (6.5-8.0) g/dL Albumin 3.4 L (3.5-5.0) g/dL Lipase < 4 L (8-78) U/L Urine Color Urine Appearance Urine pH (5.0-8.0) Ur Specific [place] (1.005-1.025) Urine Protein (NEG-TRACE) MG/DL Urine Glucose (UA) (NEG) MG/DL Urine Ketones (NEG) MG/DL Urine Blood (NEG) Urine Nitrite (NEG) Ur Leukocyte Esterase (NEG) Urine RBC (0) /HPF Urine WBC (0-4) /HPF Ur Squamous Epith Cells /LPF Ur Renal Epithelial Cell /LPF Urine Bacteria /LPF Urine Mucus /LPF 06/19/22 06/19/22 Range/Units 20:20 20:56 WBC (4.8-10.8) X10*3/uL RBC (4.60-5.80) X10*6/uL Hgb (14.0-18.0) g/dl Hct (42.0-52.0) % MCV (80.0-98.0) fL MCH (27.0-33.0) pg MCHC (31.0-36.0) g/dl RDW (11.0-16.0) % Plt Count (160-400) X10*3/uL MPV (9.4-12.4) fL Immature Gran % (Auto) (0.0-0.4) % Neut % (Auto) (45-73) % Lymph % (Auto) (20-40) % [place] % (Auto) (2-11) % Eos % (Auto) (0-4) % Baso % (Auto) (0-2) % Lymph # (Auto) (1.2-4.9) X10*3/uL [place] # (Auto) (0.1-1.2) X10*3/uL Eos # (Auto) (0.0-0.4) X10*3/uL Baso # (Auto) (0.0-0.2) X10*3/uL Abs Immat Gran (auto) (0.00-0.03) X10*3/uL Absolute Neuts (auto) (2.0-8.3) x10*3/uL Absolute Nucleated RBC (0.0-0.012) X10*3/uL Nucleated RBC % (auto) (0.0-0.2) /100WBC Sodium (135-145) mmol/L Potassium (3.3-5.1) mmol/L Chloride (96-108) mmol/L Carbon Dioxide (22-29) mmol/L Anion Gap (12-20) BUN (9-16) mg/dL Creatinine (0.5-1.4) mg/dL Estim Creat Clear Calc Estimated GFR POC Glucose 148 H (60-115) mg/dL Random Glucose (60-115) mg/dL Lactic Acid (0.5-2.0) mmol/L Calcium (8.4-10.2) mg/dL Total Bilirubin (0.0-1.0) mg/dL Direct Bilirubin (0.0-0.5) mg/dL AST (5-37) U/L ALT (0-40) U/L Alkaline Phosphatase (39-117) U/L Total Protein (6.5-8.0) g/dL Albumin (3.5-5.0) g/dL Lipase (8-78) U/L Urine Color YELLOW Urine Appearance CLEAR Urine pH 5.5 (5.0-8.0) Ur Specific [place] 1.015 (1.005-1.025) Urine Protein NEG (NEG-TRACE) MG/DL Urine Glucose (UA) 500 H (NEG) MG/DL Urine Ketones NEG (NEG) MG/DL Urine Blood 1+ H (NEG) Urine Nitrite NEG (NEG) Ur Leukocyte Esterase NEG (NEG) Urine RBC 1-4 (0) /HPF Urine WBC 0 (0-4) /HPF Ur Squamous Epith Cells TRACE /LPF Ur Renal Epithelial Cell TRACE /LPF Urine Bacteria NONE /LPF Urine Mucus TRACE /LPF Critical Care Time Critical Care Time Critical Care Time: Yes Total Critical Care Time: 30 Attestation: I personally attest to this time spent taking care of the patient. Discharge Plan Discharge Clinical Impression: Esophageal cancer, Leukocytosis, Acidosis, lactic, Urinary retention Patient Disposition: Admitted As Inpatient
[2022-06-19 19:29] LABS: MANUAL DIFF FLAG NO
[2022-06-19 19:31] LABS: Basophils Absolute Auto 0.1 X10*3/uL (0.0-0.2); Basophils Percent Auto 0.2 % (0-2); Hematocrit 38.5 % (42.0-52.0); Hemoglobin 12.4 g/dl (14.0-18.0); Imm Gran Abs Auto 0.61 X10*3/uL (0.00-0.03); Imm Gran Pct Auto 1.3 % (0.0-0.4); Lymphocytes Absolute Auto 0.6 X10*3/uL (1.2-4.9); Lymphocytes Percent Auto 1.4 % (20-40); Mean Corpuscular HGB Conc 32.2 g/dl (31.0-36.0); Mean Corpuscular Hemoglobin 31.4 pg (27.0-33.0); Mean Corpuscular Volume 97.5 fL (80.0-98.0); Mean Platelet Volume 10.5 fL (9.4-12.4); Monocytes Absolute Auto 0.9 X10*3/uL (0.1-1.2); Monocytes Percent Auto 1.9 % (2-11); Neutrophils Absolute Auto 44.1 x10*3/uL (2.0-8.3); Neutrophils Percent Auto 95.2 % (45-73); Platelet Count 227 X10*3/uL (160-400); Red Blood Count 3.95 X10*6/uL (4.60-5.80); SCAN SMEAR FLAG 1
[2022-06-19 19:36] LABS: White Blood Count 46.3 X10*3/uL (4.8-10.8)
--- NOTE | 2022-06-19 19:52 | PC.NURSE ---
Guerrero catheter inserted per MD orders
[2022-06-19 20:00] VITALS: BP 138/71; PULSE 109; RESP 16; TEMP 36.3; O2SAT 98
[2022-06-19 20:31] LABS: Alanine Aminotransferase 35 U/L (0-40); Albumin Level 3.4 g/dL (3.5-5.0); Alkaline Phosphatase 256 U/L (39-117); Anion Gap 17 (12-20); Aspartate Amino Transferase 61 U/L (5-37); Bilirubin Direct 0.3 mg/dL (0.0-0.5); Bilirubin Total 0.8 mg/dL (0.0-1.0); Blood Urea Nitrogen 13 mg/dL (9-16); Calcium 8.8 mg/dL (8.4-10.2); Carbon Dioxide 24 mmol/L (22-29); Chloride 103 mmol/L (96-108); Estimated Glomerular Filt Rate > 60; Glucose Random 178 mg/dL (60-115); Lipase < 4 U/L (8-78); Potassium 3.6 mmol/L (3.3-5.1); Sodium 140 mmol/L (135-145); Total Protein 6.7 g/dL (6.5-8.0)
--- NOTE | 2022-06-19 20:31 | PC.NURSE ---
patient out put from [facility] is 800 ml
[2022-06-19 20:35] LABS: Appearance Urine CLEAR; Color Urine YELLOW; Glucose Urine UA 500 MG/DL (NEG); Leukocyte Esterase Urine NEG (NEG); Nitrite Urine NEG (NEG); PH 5.5 (5.0-8.0); Specific Gravity - Urine 1.015 (1.005-1.025); UACC Culture Trigger NO; Urine Blood 1+ (NEG); Urine Ketones NEG (NEG); Urine Protein NEG (NEG-TRACE)
[2022-06-19 20:35] LABS: Lactic Acid 4.3 mmol/L (0.5-2.0)
--- NOTE | 2022-06-19 20:45 | PC.NURSE ---
PATIENT HAD SMALL AMOUNT OF DIARRHEA ,CARE GIVEN .
--- NOTE | 2022-06-19 20:52 | PC.NURSE ---
Pt. placed on cardiac rehab nurse
[2022-06-19 20:54] VITALS: BP 138/75; PULSE 102; RESP 19; TEMP 37.2; O2SAT 98
[2022-06-19] MEDS: 0.9 % Sodium Chloride 1,700.97 ML 1700.97 ML IV (20:56)
[2022-06-19] MEDS: cefTRIAXone sodium 2 GM in 0.9 % Sodium Chloride 50 ML IV (20:57)
[2022-06-19 20:59] LABS: Mucus Urine TRACE /LPF; Renal Epithelial Cells Urine TRACE /LPF; Squamous Epithelial Cell Urine TRACE /LPF; WBC Urine 0 /HPF (0-4)
[2022-06-19 21:01] LABS: Glucose, Whole Blood 148 mg/dL (60-115)
[2022-06-19 21:45] VITALS: BP 135/78; PULSE 98; RESP 16; TEMP 36.9; O2SAT 98
[2022-06-19 22:11] LABS: Reflex Lactate? Lactic Acid Added
[2022-06-19 23:14] LABS: D Dimer High Sensitivity 3025 NG/ML
--- NOTE | 2022-06-19 23:20 | PM.IMHP ---
History of Present Illness Date of Service: 06/19/22 Chief Complaint: Difficulty urination 71-year-old male with a past medical history of hypertension, hyperlipidemia, diabetes, diabetic neuropathy, left below-knee amputation, vitamin-D deficiency, anxiety, depression, history of adenocarcinoma of the cardioesophageal junction-on active chemotherapy; presented to the hospital today with a chief complaint of difficulty urination Patient reports that for the past 1 day he has been not able to be; subsequently came to the ER for further evaluation. Reports that he is on chemotherapy for his esophageal cancer and had had chemotherapy done today. Denies any nausea vomiting or diarrhea. Denies any difficulty swallowing. Denies any chest pain or palpitations. Denies any fever chills cough or sputum production. Denies any numbness tingling or focal weakness. Review of all other systems is negative except mentioned above ER course: Per ER team patient noted to have benign abdominal examination; Guerrero catheter was placed-had 700 cc of urine drained. No hematuria. Urinalysis negative for infection. But noted to have leukocytosis of 46-patient was afebrile; empirically given ceftriaxone; discussed with Dr. 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 Surgical History History of atherectomy History of left below knee amputation Status post below-knee amputation of left lower extremity Social History Household Members: Family Housing: House Alcohol intake: never Patient Tobacco Use Status: Never used Tobacco e-Cigarette/Vaping Use: Never Used Second Hand Smoke Exposure: Yes Use of substances other than those prescribed or required for medical reasons: No Advance Directives: Yes Advance Directives on File: Yes Advance Directives Date on File: 08/19/20 service: No Current occupational status: retired and disabled Cognitive needs: No (cane/wheelchair) Hearing needs: No Vision needs: Yes (glasses) Meds Allergies Allergy/AdvReac Type Severity Reaction Status Date / Time No Known Allergies Allergy Verified 06/15/22 08:17 Active Medications: Current Medications Acetaminophen (Acetaminophen 325 Mg Tablet) 650 mg PO Q6H PRN PRN Reason: Pain, Mild (Pain Scale 1-3) Al Hydroxide/Mg Hydroxide (Magnesium Hydrox/Alum Hydrox 30 Ml Oral.Susp) 80 ml PO USEASDIRECTD [facility] Atorvastatin Calcium (Atorvastatin Calcium 40 Mg Tablet) 40 mg PO QPM [facility] Docusate Sodium (Docusate Sodium 100 Mg Capsule) 200 mg PO QPM [facility] Gabapentin (Gabapentin 100 Mg Capsule) 200 mg PO BEDTIME [facility] Ceftriaxone Sodium 1 gm/ (Sodium Chloride) 50 mls @ 100 mls/hr IV Q24H [facility] Lorazepam (Lorazepam 0.5 Mg Tablet) 0.5 mg PO TID [facility]NEY Losartan Potassium (Losartan Potassium 50 Mg Tablet) 100 mg PO QPM COURTNEY; Protocol Metoprolol Succinate (Metoprolol Succinate Er 12.5 Mg Halftab.Er.24h) 12.5 mg PO QPM COURTNEY; Protocol Mirtazapine (Mirtazapine 30 Mg Tablet) 30 mg PO BEDTIME [facility]NEY Omeprazole (Omeprazole 20 Mg Capsule.Dr) 20 mg PO DAILY [facility]NEY Senna (Sennosides 8.6 Mg Tablet) 17.2 mg PO BEDTIME PRN PRN Reason: Constipation Sodium Chloride (0.9 % Sodium Chloride Flush 3 Ml Syringe) 3 ml IVFLUSH QSHIFT [facility] Vitamin D (Cholecalciferol (Vitamin D3) 25 Mcg Tablet) 25 mcg PO QAM [facility] Home Medications Medication Instructions Recorded Confirmed Last Taken Type aluminum-mag hydroxide-simethicone 80 ml PO USEASDIRECTD 06/19/22 06/19/22 Unknown History 400 mg-400 mg-40 mg/5 mL oral susp (Antacid Maximum Strength) atorvastatin 40 mg tablet 1 tab PO QPM 06/19/22 06/19/22 Unknown History blood sugar diagnostic (FreeStyle 06/19/22 06/19/22 Unknown History Lite Strips) cholecalciferol (vitamin D3) 25 1 cap PO QAM 06/19/22 06/19/22 Unknown History mcg (1,000 unit) capsule (Vitamin D3) diphenhydramine HCl 12.5 mg/5 mL See Rx Instructions .Route .COMPLEX 06/19/22 06/19/22 Unknown History oral liquid (Allergy Relief (diphenhydramine)) docusate sodium 100 mg capsule 2 cap PO QPM 06/19/22 06/19/22 Unknown History ferrous sulfate 325 mg (65 mg 1 tab PO QAM 06/19/22 06/19/22 Unknown History iron) tablet (FeroSul) gabapentin 100 mg capsule 2 cap PO BEDTIME 06/19/22 06/19/22 Unknown History glucagon 0.5 mg/0.1 mL 0.1 ml subcut DAILY diabetes 06/19/22 06/19/22 Unknown History subcutaneous auto-injector (Gvoke mellitus HypoPen 2-Pack) insulin aspar prot-insulin aspart 22 unit subcut QPM 06/19/22 06/19/22 Unknown History 100 unit/mL (70-30) subcutaneous pen (Novolog Mix 70-30FlexPen U-100) lancets 33 gauge (TRUEplus Lancets) 06/19/22 06/19/22 Unknown History lidocaine HCl 2 % mucosal solution See Rx Instructions .Route .COMPLEX 06/19/22 06/19/22 Unknown History lorazepam 0.5 mg tablet 1 tab PO TID 06/19/22 06/19/22 Unknown History losartan 100 mg tablet 1 tab PO QPM 06/19/22 06/19/22 Unknown History metformin 500 mg tablet,extended 2 tab PO BID 06/19/22 06/19/22 Unknown History release 24 hr metoprolol succinate 25 mg 0.5 tab PO QPM 06/19/22 06/19/22 Unknown History tablet,extended release 24 hr mirtazapine 30 mg tablet 1 tab PO BEDTIME 06/19/22 06/19/22 Unknown History omeprazole 20 mg capsule,delayed 20 mg PO DAILY 06/19/22 06/19/22 Unknown History release ondansetron 8 mg disintegrating 1 tab PO Q8H PRN nausea 06/19/22 06/19/22 Unknown History tablet pen needle, diabetic 32 gauge x 06/19/22 06/19/22 Unknown History (Pentips) tramadol 50 mg tablet 1 tab PO Q6-8H PRN pain 06/19/22 06/19/22 Unknown History Physical Exam Vital Signs and Narrative: Vital Signs: Last Vital Signs Temp 98.4 F 06/19/22 21:45 Pulse 98 06/19/22 21:45 Resp 16 06/19/22 21:45 BP 135/78 06/19/22 21:45 Pulse Ox 98 06/19/22 21:45 O2 Del Method 06/19/22 21:45 BMI result Body Mass Index 19.0 Gen: Appears be in no acute distress HEENT: NCAT, Moist mucosa. Pulmonary: Vesicular breath sounds, fair air entry CVS: Normal S1-S2 Abdomen: BS+, Soft, Nontender Extremities: Warm well perfused Neuro: Alert and awake. Results Labs CBC and Chem 7: 06/19/22 19:23 06/19/22 19:53 Labs: Laboratory Results - last 24 hr 06/19/22 06/19/22 06/19/22 19:23 19:53 19:53 MCV 97.5 MCH 31.4 MCHC 32.2 RDW 18.0 H Plt Count 227 MPV 10.5 Immature Gran % (Auto) 1.3 H Neut % (Auto) 95.2 H Lymph % (Auto) 1.4 L [place] % (Auto) 1.9 L Eos % (Auto) 0.0 Baso % (Auto) 0.2 Lymph # (Auto) 0.6 L [place] # (Auto) 0.9 Eos # (Auto) 0.0 Baso # (Auto) 0.1 Abs Immat Gran (auto) 0.61 H Absolute Neuts (auto) 44.1 H Absolute Nucleated RBC 0.000 Nucleated RBC % (auto) 0.0 D-Dimer High Sensitivty Anion Gap 17 Estim Creat Clear Calc 81.0 Estimated GFR > 60 POC Glucose Random Glucose 178 H Lactic Acid 4.3 H* Lactic Acid F/U @ 2Hr Calcium 8.8 Total Bilirubin 0.8 Direct Bilirubin 0.3 AST 61 H ALT 35 Alkaline Phosphatase 256 H Total Protein 6.7 Albumin 3.4 L Lipase < 4 L Urine Color Urine Appearance Urine pH Ur Specific [place] Urine Protein Urine Glucose (UA) Urine Ketones Urine Blood Urine Nitrite Ur Leukocyte Esterase Urine RBC Urine WBC Ur Squamous Epith Cells Ur Renal Epithelial Cell Urine Bacteria Urine Mucus 06/19/22 06/19/22 06/19/22 20:20 20:56 22:40 MCV MCH MCHC RDW Plt Count MPV Immature Gran % (Auto) Neut % (Auto) Lymph % (Auto) [place] % (Auto) Eos % (Auto) Baso % (Auto) Lymph # (Auto) [place] # (Auto) Eos # (Auto) Baso # (Auto) Abs Immat Gran (auto) Absolute Neuts (auto) Absolute Nucleated RBC Nucleated RBC % (auto) D-Dimer High Sensitivty Anion Gap Estim Creat Clear Calc Estimated GFR POC Glucose 148 H Random Glucose Lactic Acid Lactic Acid F/U @ 2Hr 3.0 H* Calcium Total Bilirubin Direct Bilirubin AST ALT Alkaline Phosphatase Total Protein Albumin Lipase Urine Color YELLOW Urine Appearance CLEAR Urine pH 5.5 Ur Specific [place] 1.015 Urine Protein NEG Urine Glucose (UA) 500 H Urine Ketones NEG Urine Blood 1+ H Urine Nitrite NEG Ur Leukocyte Esterase NEG Urine RBC 1-4 Urine WBC 0 Ur Squamous Epith Cells TRACE Ur Renal Epithelial Cell TRACE Urine Bacteria NONE Urine Mucus TRACE 06/19/22 22:52 MCV MCH MCHC RDW Plt Count MPV Immature Gran % (Auto) Neut % (Auto) Lymph % (Auto) [place] % (Auto) Eos % (Auto) Baso % (Auto) Lymph # (Auto) [place] # (Auto) Eos # (Auto) Baso # (Auto) Abs Immat Gran (auto) Absolute Neuts (auto) Absolute Nucleated RBC Nucleated RBC % (auto) D-Dimer High Sensitivty 3025 Anion Gap Estim Creat Clear Calc Estimated GFR POC Glucose Random Glucose Lactic Acid Lactic Acid F/U @ 2Hr Calcium Total Bilirubin Direct Bilirubin AST ALT Alkaline Phosphatase Total Protein Albumin Lipase Urine Color Urine Appearance Urine pH Ur Specific [place] Urine Protein Urine Glucose (UA) Urine Ketones Urine Blood Urine Nitrite Ur Leukocyte Esterase Urine RBC Urine WBC Ur Squamous Epith Cells Ur Renal Epithelial Cell Urine Bacteria Urine Mucus Imaging Radiologist's Impressions: Impressions Chest X-Ray 06/19/22 21:57 IMPRESSION: No acute cardiopulmonary findings. Assessment and Plan (1) Urinary retention: Status: Acute Plan 71-year-old male with a past medical history of hypertension, hyperlipidemia, diabetes, diabetic neuropathy, left below-knee amputation, vitamin-D deficiency, anxiety, depression, history of adenocarcinoma of the cardioesophageal junction-on active chemotherapy; presented to the hospital today with a chief complaint of difficulty urination Urinary retention: Urinalysis negative for infection Patient has Guerrero catheter placed Urology follow-up Severe leukocytosis: Question Lukemoid reaction. Patient empirically being covered with ceftriaxone. Chest x-ray negative for pneumonia. Urinalysis negative. Will consult ID and Oncology for further recommendations. Positive D-dimer: CT chest pending. History of esophageal cancer: Patient on chemotherapy. Oncology follow-up. History of hypertension/hyperlipidemia: Continue home medications. History of diabetes: Hold home insulin regimen. Insulin sliding scale for now. History of anxiety: Continue home Ativan DVT prophylaxis: Lovenox Code status: Full code Quality Stroke Does the patient have a stroke diagnosis?: No VTE Prior VTE?: No VTE Risk Level:: Medical - moderate - high VTE Device Contraindication: Treatment Not Indicated VTE Drug Contraindication: N/A - Med Ordered
[2022-06-19 23:22] LABS: COVID-19 Test Negative (Negative)
[2022-06-19 23:54] VITALS: BP 120/59; PULSE 98; RESP 16; TEMP 36.6; O2SAT 99
[2022-06-20] MEDS: LORazepam 0.5 MG TABLET PO ×2 (00:01→08:10)
--- NOTE | 2022-06-20 00:02 | PC.NURSE ---
pt repositioned for comfort with family at the bed side. Medicated pt per Mar.
[2022-06-20] MEDS: iohexoL 350 MG/ML 100 ML INFUS..BTL 65 ML IV (00:06)
[2022-06-20 00:56] LABS: Reflex Lactate? 2 Y
[2022-06-20 01:49] LABS: ~Lactic Acid-LAB USE ONLY 2.3 mmol/L (0.5-2.0)
[2022-06-20 07:46] LABS: Glucose, Whole Blood 119 mg/dL (60-115)
[2022-06-20 07:49] VITALS: BP 107/58; PULSE 108; RESP 16; O2SAT 98
[2022-06-20 07:52] LABS: Hematocrit 34.8 % (42.0-52.0); Hemoglobin 11.3 g/dl (14.0-18.0); Mean Corpuscular HGB Conc 32.5 g/dl (31.0-36.0); Mean Corpuscular Volume 98.6 fL (80.0-98.0); Platelet Count 174 X10*3/uL (160-400); Red Blood Count 3.53 X10*6/uL (4.60-5.80); Red Cell Distribution Width 18.3 % (11.0-16.0)
[2022-06-20 07:58] LABS: WBC ABN SCTR FOR CBC 1
[2022-06-20 08:00] LABS: White Blood Count 62.9 X10*3/uL (4.8-10.8)
[2022-06-20 08:09] LABS: Anion Gap 13 (12-20); Blood Urea Nitrogen 9 mg/dL (9-16); Calcium 8.4 mg/dL (8.4-10.2); Carbon Dioxide 24 mmol/L (22-29); Chloride 107 mmol/L (96-108); Creatinine Clr Calc Pharmacy 96.3; Estimated Glomerular Filt Rate > 60; Glucose Random 120 mg/dL (60-115); Potassium 3.7 mmol/L (3.3-5.1); Sodium 140 mmol/L (135-145)
[2022-06-20] MEDS: Omeprazole 20 MG CAPSULE.DR PO (08:10)
[2022-06-20] MEDS: Cholecalciferol (Vitamin D3) 25 MCG TABLET PO (08:10)
[2022-06-20] MEDS: 0.9 % Sodium Chloride Flush 3 ML SYRINGE IVFLUSH (08:11)
[2022-06-20 08:24] VITALS: BP 108/42; PULSE 100; RESP 16; TEMP 37.3; O2SAT 100
--- NOTE | 2022-06-20 08:25 | PC.NURSE ---
alert, oriented. requested morning ativan. am care provided with repositioning. has mult bonyprominences w/o skin breakdown. nsr on monitor. awaits room assignment. doc Bryant made aware of am WBC count. Pt ate minimally. currently 300ml concentrated urine in wolfe
[2022-06-20 08:41] LABS: Band Neutrophils Percent 21 % (3-5); Lymphocytes Absolute Manual 0.6 X10*3/uL (1.2-4.9); Lymphocytes Percent Manual 1 % (20-40); Neutrophils Absolute Manual 62.3 X10*3/uL (2.0-8.3); Neutrophils Percent Manual 78 % (45-73)
[2022-06-20 08:43] LABS: Platelet Estimate NORMAL (NORMAL); Platelet Morphology Comment NORMAL; RBC Morphology NORMAL
[2022-06-20 11:14] VITALS: BP 98/54; PULSE 95; RESP 17; TEMP 37.1; O2SAT 97
--- NOTE | 2022-06-20 11:17 | P.F2F_ITS ---
Service Date Service Date: 06/20/22 Encounter Date of encounter: 06/20/22 Reasons for Services Signs and symptoms assessed: weakness Reason for long-term: GI/ assessment (sent home from hospital with yaneth) Homebound: Leaving the home is medically contraindicated at this time without the asist of a device and/or another person due th the listed conditions above and below. Reason homebound: unsteady gait / fall risk Certification: Based on the above findings, I certify that this patient is confined to the home and needs intermittent long-term care, physical therapy and/or speech therapy, or continues to need occupational therapy. The patient is under my care, and I have initiated the establishment of the plan of care. The patient will be followed by a physician who will periodically review the plan of care.
--- NOTE | 2022-06-20 11:18 | P.DS_ITS ---
DS: Providers Provider Date of Service: 06/20/22 Date of admission: 06/19/22 23:18 Primary care physician: Norm Hooks MD Consults: 06/19/22 23:16 Consult to Hematology / Oncology Routine Consulting Provider: Karly Andrade Reason for consultation: leukocytosis Consult to Infectious Diseases Routine Consulting Provider: Cassidy Byrnes Reason for consultation: pt on chemo; leukocytosis; unclear source. 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 Patient reports that for the past 1 day he has been not able to be; subsequently came to the ER for further evaluation.? Reports that he is on chemotherapy for his esophageal cancer and had had chemotherapy done today.? Denies any nausea vomiting or diarrhea.? Denies any difficulty swallowing.? Denies any chest pain or palpitations.? Denies any fever chills cough or sputum production.? Denies any numbness tingling or focal weakness.? Review of all other systems is negative except mentioned above ER course: Per ER team patient noted to have benign abdominal examination; Wolfe catheter was placed-had 700 cc of urine drained.? No hematuria.? Urinalysis negative for infection.? But noted to have leukocytosis of 46-patient was afebrile; empirically given ceftriaxone; discussed with Dr. Andrade; admitted to the hospital for further management hospital course: patient was admitted for urinary retention and concern for severe leukocytosis. For urinary retention Wolfe catheter is placed. Patient will be started on tamsulosin and finasteride, will be discharged with Wolfe catheter in place and will follow up with Urology. For his severe leukocytosis this was likely due to Neulasta, no evidence of infection or sepsis. For his hypertension, patient had low normal blood pressures and his losartan will be held on discharge, this should continue to be monitored. First hyperlipidemia is continue on statin. For his diabetes he was continued on insulin. For his esophageal cancer he will follow up outpatient with Oncology. For his anxiety he was continued on Ativan. Patient is feeling well and will be discharged home. Time Spent with Patient Time attestation: Total time spent providing and/or coordinating discharge services: Discharge coordination time: Greater than 30 minutes Quality: Safe Use of Opioids Does Pt have an Active Cancer Diagnosis on the Problem List?: Yes Opioid Measure Date for [facility] Report: 05/21/22 Opioid Measure Time for [facility] Report: 11:18 Quality: Stroke Does the patient have a stroke diagnosis?: No Physical Exam Vital Signs: Vital Signs: Last Vital Signs Temp 98.7 F 06/20/22 11:14 Pulse 95 06/20/22 11:14 Resp 17 06/20/22 11:14 BP 98/54 L 06/20/22 11:14 Pulse Ox 97 06/20/22 11:14 O2 Del Method 06/20/22 11:14 BMI result Body Mass Index 19.0 General: AO X 3, no acute distress Resp: CTA bilateral, no accessory muscles used CVS: S1,S2,RRR GI: soft, non tender, non distended Neuro: motor grossly intact, alert Psych: appropriate affect, appropriate insight DS: Data Data Completed and Pending Labs on day of discharge: Laboratory Results - last 24 hr 06/19/22 06/19/22 06/19/22 19:23 19:53 19:53 WBC 46.3 H* RBC 3.95 L Hgb 12.4 L Hct 38.5 L MCV 97.5 MCH 31.4 MCHC 32.2 RDW 18.0 H Plt Count 227 MPV 10.5 Immature Gran % (Auto) 1.3 H Neut % (Auto) 95.2 H Lymph % (Auto) 1.4 L [place] % (Auto) 1.9 L Eos % (Auto) 0.0 Baso % (Auto) 0.2 Lymph # (Auto) 0.6 L [place] # (Auto) 0.9 Eos # (Auto) 0.0 Baso # (Auto) 0.1 Abs Immat Gran (auto) 0.61 H Absolute Neuts (auto) 44.1 H Absolute Nucleated RBC 0.000 Nucleated RBC % (auto) 0.0 Neutrophils % (Manual) Band Neutrophils % Lymphocytes % (Manual) Abs Neuts (Manual) Lymphocytes # (Manual) Platelet Estimate Plt Morphology Comment RBC Morphology D-Dimer High Sensitivty Sodium 140 Potassium 3.6 Chloride 103 Carbon Dioxide 24 Anion Gap 17 BUN 13 Creatinine 0.69 Estim Creat Clear Calc 81.0 Estimated GFR > 60 POC Glucose Random Glucose 178 H Lactic Acid 4.3 H* Lactic Acid F/U @ 2Hr Lactic Acid F/U @ 4Hr Calcium 8.8 Total Bilirubin 0.8 Direct Bilirubin 0.3 AST 61 H ALT 35 Alkaline Phosphatase 256 H Total Protein 6.7 Albumin 3.4 L Lipase < 4 L Urine Color Urine Appearance Urine pH Ur Specific [place] Urine Protein Urine Glucose (UA) Urine Ketones Urine Blood Urine Nitrite Ur Leukocyte Esterase Urine RBC Urine WBC Ur Squamous Epith Cells Ur Renal Epithelial Cell Urine Bacteria Urine Mucus COVID-19 (JUAN CARLOS) COVID-19 [employer] 06/19/22 06/19/22 06/19/22 20:20 20:56 22:40 WBC RBC Hgb Hct MCV MCH MCHC RDW Plt Count MPV Immature Gran % (Auto) Neut % (Auto) Lymph % (Auto) [place] % (Auto) Eos % (Auto) Baso % (Auto) Lymph # (Auto) [place] # (Auto) Eos # (Auto) Baso # (Auto) Abs Immat Gran (auto) Absolute Neuts (auto) Absolute Nucleated RBC Nucleated RBC % (auto) Neutrophils % (Manual) Band Neutrophils % Lymphocytes % (Manual) Abs Neuts (Manual) Lymphocytes # (Manual) Platelet Estimate Plt Morphology Comment RBC Morphology D-Dimer High Sensitivty Sodium Potassium Chloride Carbon Dioxide Anion Gap BUN Creatinine Estim Creat Clear Calc Estimated GFR POC Glucose 148 H Random Glucose Lactic Acid Lactic Acid F/U @ 2Hr 3.0 H* Lactic Acid F/U @ 4Hr Calcium Total Bilirubin Direct Bilirubin AST ALT Alkaline Phosphatase Total Protein Albumin Lipase Urine Color YELLOW Urine Appearance CLEAR Urine pH 5.5 Ur Specific [place] 1.015 Urine Protein NEG Urine Glucose (UA) 500 H Urine Ketones NEG Urine Blood 1+ H Urine Nitrite NEG Ur Leukocyte Esterase NEG Urine RBC 1-4 Urine WBC 0 Ur Squamous Epith Cells TRACE Ur Renal Epithelial Cell TRACE Urine Bacteria NONE Urine Mucus TRACE COVID-19 (JUAN CARLOS) COVID-19 [employer] 06/19/22 06/19/22 06/20/22 22:40 22:52 01:10 WBC RBC Hgb Hct MCV MCH MCHC RDW Plt Count MPV Immature Gran % (Auto) Neut % (Auto) Lymph % (Auto) [place] % (Auto) Eos % (Auto) Baso % (Auto) Lymph # (Auto) [place] # (Auto) Eos # (Auto) Baso # (Auto) Abs Immat Gran (auto) Absolute Neuts (auto) Absolute Nucleated RBC Nucleated RBC % (auto) Neutrophils % (Manual) Band Neutrophils % Lymphocytes % (Manual) Abs Neuts (Manual) Lymphocytes # (Manual) Platelet Estimate Plt Morphology Comment RBC Morphology D-Dimer High Sensitivty 3025 Sodium Potassium Chloride Carbon Dioxide Anion Gap BUN Creatinine Estim Creat Clear Calc Estimated GFR POC Glucose Random Glucose Lactic Acid Lactic Acid F/U @ 2Hr Lactic Acid F/U @ 4Hr 2.3 H* Calcium Total Bilirubin Direct Bilirubin AST ALT Alkaline Phosphatase Total Protein Albumin Lipase Urine Color Urine Appearance Urine pH Ur Specific [place] Urine Protein Urine Glucose (UA) Urine Ketones Urine Blood Urine Nitrite Ur Leukocyte Esterase Urine RBC Urine WBC Ur Squamous Epith Cells Ur Renal Epithelial Cell Urine Bacteria Urine Mucus COVID-19 (JUAN CARLOS) Negative COVID-19 Clin Com See Note 06/20/22 06/20/22 06/20/22 07:36 07:36 07:43 WBC 62.9 H* RBC 3.53 L Hgb 11.3 L Hct 34.8 L MCV 98.6 H MCH 32.0 MCHC 32.5 RDW 18.3 H Plt Count 174 MPV 11.0 Immature Gran % (Auto) Cancelled Neut % (Auto) Cancelled Lymph % (Auto) Cancelled [place] % (Auto) Cancelled Eos % (Auto) Cancelled Baso % (Auto) Cancelled Lymph # (Auto) Cancelled [place] # (Auto) Cancelled Eos # (Auto) Cancelled Baso # (Auto) Cancelled Abs Immat Gran (auto) Cancelled Absolute Neuts (auto) Cancelled Absolute Nucleated RBC 0.000 Nucleated RBC % (auto) 0.0 Neutrophils % (Manual) 78 H Band Neutrophils % 21 H Lymphocytes % (Manual) 1 L Abs Neuts (Manual) 62.3 H Lymphocytes # (Manual) 0.6 L Platelet Estimate NORMAL Plt Morphology Comment NORMAL RBC Morphology NORMAL D-Dimer High Sensitivty Sodium 140 Potassium 3.7 Chloride 107 Carbon Dioxide 24 Anion Gap 13 BUN 9 Creatinine 0.58 Estim Creat Clear Calc 96.3 Estimated GFR > 60 POC Glucose 119 H Random Glucose 120 H Lactic Acid Lactic Acid F/U @ 2Hr Lactic Acid F/U @ 4Hr Calcium 8.4 Total Bilirubin Direct Bilirubin AST ALT Alkaline Phosphatase Total Protein Albumin Lipase Urine Color Urine Appearance Urine pH Ur Specific [place] Urine Protein Urine Glucose (UA) Urine Ketones Urine Blood Urine Nitrite Ur Leukocyte Esterase Urine RBC Urine WBC Ur Squamous Epith Cells Ur Renal Epithelial Cell Urine Bacteria Urine Mucus COVID-19 (JUAN CARLOS) COVID-19 Clin Com Discharge Plan Discharge Patient Disposition: Home Health Service Discharge Diagnosis: urinary retention, leukocytosis Referrals: Norm Hooks MD [Primary Care Provider] - 1 Week Discharge Medications: New tamsulosin 0.4 mg Capsule 0.4 mg PO DAILY Qty: 30 0RF finasteride 5 mg tablet 5 mg PO DAILY Qty: 30 0RF Continued atorvastatin 40 mg tablet 1 tab PO QPM diphenhydramine HCl [Allergy Relief(diphenhydramin)] 12.5 mg/5 mL liquid See Rx Instructions .ROUTE .COMPLEX Rx Instructions: Doctor's Order (DME) FreeStyle Lite Strips Strip MISCELLANEOUS QID tramadol 50 mg tablet 1 tab PO Q6-8H PRN (Reason: pain) ondansetron 8 mg tablet,disintegrating 1 tab PO Q8H PRN (Reason: nausea) lorazepam 0.5 mg tablet 1 tab PO TID mirtazapine 30 mg tablet 1 tab PO BEDTIME ferrous sulfate [FeroSul] 325 mg (65 mg iron) tablet 1 tab PO QAM docusate sodium 100 mg capsule 2 cap PO QPM lidocaine HCl 2 % solution See Rx Instructions .ROUTE .COMPLEX Rx Instructions: Doctor's Order omeprazole 20 mg capsule,delayed release(DR/EC) 20 mg PO DAILY gabapentin 100 mg capsule 2 cap PO BEDTIME metoprolol succinate 25 mg tablet extended release 24 hr 0.5 tab PO QPM losartan 100 mg tablet 1 tab PO QPM metformin 500 mg tablet extended release 24 hr 2 tab PO BID alum-mag hydroxide-simeth [Antacid Maximum Strength] 400-400-40 mg/5 mL suspension 80 ml PO USEASDIRECTD cholecalciferol (vitamin D3) [Vitamin D3] 25 mcg (1,000 unit) capsule 1 cap PO QAM insulin asp prt-insulin aspart [Novolog Mix 70-30FlexPen U-100] 100 unit/mL (70-30) insulin pen 22 unit subcut QPM (DME) pen needle, diabetic [Pentips] 32 gauge x 5/32 needle MISCELLANEOUS QID (DME) lancets [TRUEplus Lancets] 33 gauge misc MISCELLANEOUS QID Gvoke HypoPen 2-Pack 0.5 mg/0.1 mL auto-injector 0.1 ml subcut DAILY Discharge Orders: Discharge Order (Routine); Ordered 06/20/22 Ordered By: Francisco Hurtado Diet: Advance to usual diet Activity on Discharge: As tolerated Stand Alone Forms: Patient Portal Discharge page Care Plan Goals: manage urinary retention Health Concerns: leukocytosis, urinary retention, cancer Plan of Treatment: start flomax and proscar, keep wolfe for now and follow up soon with urology, follow up with oncology Assessment: see above
--- NOTE | 2022-06-20 12:18 | MHC.CM.ED ---
Addendum entered by Rosalba Bosch 06/20/22 12:20: FAMILY ASKS FOR [facility] ON [address], [facility] IS CLOS[facility] TODAY HOSPITALIST COMPLETED FAMILY AWARE. Original Note: PER CONVERSATION WITH FAMILY (IN ROOM) AND PATIENT WITH PERMISSION, REFERRAL TO [facility]
[2022-06-20 12:25] VITALS: BP 120/65; PULSE 95; RESP 21; TEMP 37.2; O2SAT 99
--- NOTE | 2022-06-20 12:27 | MHC.CM.PN ---
[facility] ACCEPTING. REFERRAL NOT PLACED TO [facility] THEY ARE UNABLE TO ACCEPT UNTIL PCP IS VERIFIED AND PATIENT IS DC TODAY
--- NOTE | 2022-06-20 13:57 | PM.UROCN ---
History of Present Illness Consult details Consult date: 06/20/22 Narrative: consulting complaint - urinary retention Yunior is a 71-year-old male. Admit with urinary retention Guerrero catheter placed with 700 cc residual Background of progressive diabetic disease with below-knee amputation Prior recurrent urinary tract infection prostate medications include finasteride and tamsulosin Recommend stopping tamsulosin and replacing this with terazosin 10 mg Guerrero catheter will need to be in place for 4 weeks Would benefit from cap on catheter to allow bladder cycling Review of Systems Constitutional: Constitutional: Reports as per HPI and Reports no additional constitutional complaints Cardiovascular: Cardiovascular: Reports as per HPI and Reports no additional cardiovascular complaints Respiratory: Respiratory: Reports as per HPI and Reports no additional respiratory complaints Gastrointestinal: Gastrointestinal: Reports as per HPI and Reports no additional gastrointestinal complaints Genitourinary: Genitourinary: Reports as per HPI Musculoskeletal: Musculoskeletal: Reports no additional musculoskeletal complaints and Reports as per HPI Neurologic: Reports system reviewed and no additional complaints, except as documented and Reports as per HPI PMFSH Past Medical History Medical History Adenocarcinoma of cardio-esophageal junction Anxiety Benign essential hypertension Constipation Depression Diabetes type 2, uncontrolled Diabetic nephropathy associated with type 2 diabetes mellitus Diabetic neuropathy Diabetic neuropathy associated with type 2 diabetes mellitus Dyslipidemia HLD (hyperlipidemia) Hypertension Keratotic lesion 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 Surgical History Surgical History History of atherectomy History of left below knee amputation Status post below-knee amputation of left lower extremity Social History Social History Household Members: Family Housing: House Alcohol intake: never Patient Tobacco Use Status: Never used Tobacco e-Cigarette/Vaping Use: Never Used Second Hand Smoke Exposure: Yes Advance Directives Date on File: 08/19/20 service: No Current occupational status: retired and disabled Cognitive needs: No (cane/wheelchair) Hearing needs: No Vision needs: Yes (glasses) Meds Allergies Allergy/AdvReac Type Severity Reaction Status Date / Time No Known Allergies Allergy Verified 06/15/22 08:17 Home Medications Medication Instructions Recorded Confirmed Last Taken Type aluminum-mag hydroxide-simethicone 80 ml PO USEASDIRECTD 06/19/22 06/19/22 Unknown History 400 mg-400 mg-40 mg/5 mL oral susp (Antacid Maximum Strength) atorvastatin 40 mg tablet 1 tab PO QPM 06/19/22 06/19/22 Unknown History blood sugar diagnostic (FreeStyle 06/19/22 06/19/22 Unknown History Lite Strips) cholecalciferol (vitamin D3) 25 1 cap PO QAM 06/19/22 06/19/22 Unknown History mcg (1,000 unit) capsule (Vitamin D3) diphenhydramine HCl 12.5 mg/5 mL See Rx Instructions .Route .COMPLEX 06/19/22 06/19/22 Unknown History oral liquid (Allergy Relief (diphenhydramine)) docusate sodium 100 mg capsule 2 cap PO QPM 06/19/22 06/19/22 Unknown History ferrous sulfate 325 mg (65 mg 1 tab PO QAM 06/19/22 06/19/22 Unknown History iron) tablet (FeroSul) gabapentin 100 mg capsule 2 cap PO BEDTIME 06/19/22 06/19/22 Unknown History glucagon 0.5 mg/0.1 mL 0.1 ml subcut DAILY diabetes 06/19/22 06/19/22 Unknown History subcutaneous auto-injector (Gvoke mellitus HypoPen 2-Pack) insulin aspar prot-insulin aspart 22 unit subcut QPM 06/19/22 06/19/22 Unknown History 100 unit/mL (70-30) subcutaneous pen (Novolog Mix 70-30FlexPen U-100) lancets 33 gauge (TRUEplus Lancets) 06/19/22 06/19/22 Unknown History lidocaine HCl 2 % mucosal solution See Rx Instructions .Route .COMPLEX 06/19/22 06/19/22 Unknown History lorazepam 0.5 mg tablet 1 tab PO TID 06/19/22 06/19/22 Unknown History metformin 500 mg tablet,extended 2 tab PO BID 06/19/22 06/19/22 Unknown History release 24 hr metoprolol succinate 25 mg 0.5 tab PO QPM 06/19/22 06/19/22 Unknown History tablet,extended release 24 hr mirtazapine 30 mg tablet 1 tab PO BEDTIME 06/19/22 06/19/22 Unknown History omeprazole 20 mg capsule,delayed 20 mg PO DAILY 06/19/22 06/19/22 Unknown History release ondansetron 8 mg disintegrating 1 tab PO Q8H PRN nausea 06/19/22 06/19/22 Unknown History tablet pen needle, diabetic 32 gauge x 06/19/22 06/19/22 Unknown History (Pentips) tramadol 50 mg tablet 1 tab PO Q6-8H PRN pain 06/19/22 06/19/22 Unknown History Physical Exam Vital Signs: Vital Signs: Last Vital Signs Temp 99 F 06/20/22 12:25 Pulse 95 06/20/22 12:25 Resp 21 H 06/20/22 12:25 BP 120/65 06/20/22 12:25 Pulse Ox 99 06/20/22 12:25 O2 Del Method 06/20/22 12:25 BMI result Body Mass Index 19.0 Const: General: cooperative, healthy appearing, comfortable and no acute distress Orientation/consciousness: patient oriented x3 HEENT: Face and sinus: Yes normal facial exam Mouth: moist mucous membranes Neck: Neck: Yes normal visual inspection, Yes full ROM and Yes trachea midline Chest: Chest palpation & inspection: normal inspection of the chest Resp: Effort & Inspection: normal respiratory effort, able to speak in complete sentences and no respiratory distress GI: Inspection: Yes normal to inspection Back/Spine/Pelvis: Cervical Spine: normal cervical lordosis Thoracic/Lumbar Spine: thoracic and lumbar spine normal to inspection Skin: General skin exam: no rashes or lesions noted Neuro: General: patient oriented x3, tone normal and moves all extremities Extrem: General: Yes normal to inspection and Yes capillary refill normal Results Labs Result diagrams: 06/20/22 07:36 06/20/22 07:36 Labs: Abnormal lab results 06/19/22 06/19/22 06/19/22 Range/Units 19:23 19:53 19:53 WBC 46.3 H* (4.8-10.8) X10*3/uL RBC 3.95 L (4.60-5.80) X10*6/uL Hgb 12.4 L (14.0-18.0) g/dl Hct 38.5 L (42.0-52.0) % MCV (80.0-98.0) fL RDW 18.0 H (11.0-16.0) % Immature Gran % (Auto) 1.3 H (0.0-0.4) % Neut % (Auto) 95.2 H (45-73) % Lymph % (Auto) 1.4 L (20-40) % [place] % (Auto) 1.9 L (2-11) % Lymph # (Auto) 0.6 L (1.2-4.9) X10*3/uL Abs Immat Gran (auto) 0.61 H (0.00-0.03) X10*3/uL Absolute Neuts (auto) 44.1 H (2.0-8.3) x10*3/uL Neutrophils % (Manual) (45-73) % Band Neutrophils % (3-5) % Lymphocytes % (Manual) (20-40) % Abs Neuts (Manual) (2.0-8.3) X10*3/uL Lymphocytes # (Manual) (1.2-4.9) X10*3/uL POC Glucose (60-115) mg/dL Random Glucose 178 H (60-115) mg/dL Lactic Acid 4.3 H* (0.5-2.0) mmol/L Lactic Acid F/U @ 2Hr (0.5-2.0) mmol/L Lactic Acid F/U @ 4Hr (0.5-2.0) mmol/L AST 61 H (5-37) U/L Alkaline Phosphatase 256 H (39-117) U/L Albumin 3.4 L (3.5-5.0) g/dL Lipase < 4 L (8-78) U/L Urine Glucose (UA) (NEG) MG/DL Urine Blood (NEG) 06/19/22 06/19/22 06/19/22 Range/Units 20:20 20:56 22:40 WBC (4.8-10.8) X10*3/uL RBC (4.60-5.80) X10*6/uL Hgb (14.0-18.0) g/dl Hct (42.0-52.0) % MCV (80.0-98.0) fL RDW (11.0-16.0) % Immature Gran % (Auto) (0.0-0.4) % Neut % (Auto) (45-73) % Lymph % (Auto) (20-40) % [place] % (Auto) (2-11) % Lymph # (Auto) (1.2-4.9) X10*3/uL Abs Immat Gran (auto) (0.00-0.03) X10*3/uL Absolute Neuts (auto) (2.0-8.3) x10*3/uL Neutrophils % (Manual) (45-73) % Band Neutrophils % (3-5) % Lymphocytes % (Manual) (20-40) % Abs Neuts (Manual) (2.0-8.3) X10*3/uL Lymphocytes # (Manual) (1.2-4.9) X10*3/uL POC Glucose 148 H (60-115) mg/dL Random Glucose (60-115) mg/dL Lactic Acid (0.5-2.0) mmol/L Lactic Acid F/U @ 2Hr 3.0 H* (0.5-2.0) mmol/L Lactic Acid F/U @ 4Hr (0.5-2.0) mmol/L AST (5-37) U/L Alkaline Phosphatase (39-117) U/L Albumin (3.5-5.0) g/dL Lipase (8-78) U/L Urine Glucose (UA) 500 H (NEG) MG/DL Urine Blood 1+ H (NEG) 06/20/22 06/20/22 06/20/22 Range/Units 01:10 07:36 07:36 WBC 62.9 H* (4.8-10.8) X10*3/uL RBC 3.53 L (4.60-5.80) X10*6/uL Hgb 11.3 L (14.0-18.0) g/dl Hct 34.8 L (42.0-52.0) % MCV 98.6 H (80.0-98.0) fL RDW 18.3 H (11.0-16.0) % Immature Gran % (Auto) (0.0-0.4) % Neut % (Auto) (45-73) % Lymph % (Auto) (20-40) % [place] % (Auto) (2-11) % Lymph # (Auto) (1.2-4.9) X10*3/uL Abs Immat Gran (auto) (0.00-0.03) X10*3/uL Absolute Neuts (auto) (2.0-8.3) x10*3/uL Neutrophils % (Manual) 78 H (45-73) % Band Neutrophils % 21 H (3-5) % Lymphocytes % (Manual) 1 L (20-40) % Abs Neuts (Manual) 62.3 H (2.0-8.3) X10*3/uL Lymphocytes # (Manual) 0.6 L (1.2-4.9) X10*3/uL POC Glucose (60-115) mg/dL Random Glucose 120 H (60-115) mg/dL Lactic Acid (0.5-2.0) mmol/L Lactic Acid F/U @ 2Hr (0.5-2.0) mmol/L Lactic Acid F/U @ 4Hr 2.3 H* (0.5-2.0) mmol/L AST (5-37) U/L Alkaline Phosphatase (39-117) U/L Albumin (3.5-5.0) g/dL Lipase (8-78) U/L Urine Glucose (UA) (NEG) MG/DL Urine Blood (NEG) 06/20/22 Range/Units 07:43 WBC (4.8-10.8) X10*3/uL RBC (4.60-5.80) X10*6/uL Hgb (14.0-18.0) g/dl Hct (42.0-52.0) % MCV (80.0-98.0) fL RDW (11.0-16.0) % Immature Gran % (Auto) (0.0-0.4) % Neut % (Auto) (45-73) % Lymph % (Auto) (20-40) % [place] % (Auto) (2-11) % Lymph # (Auto) (1.2-4.9) X10*3/uL Abs Immat Gran (auto) (0.00-0.03) X10*3/uL Absolute Neuts (auto) (2.0-8.3) x10*3/uL Neutrophils % (Manual) (45-73) % Band Neutrophils % (3-5) % Lymphocytes % (Manual) (20-40) % Abs Neuts (Manual) (2.0-8.3) X10*3/uL Lymphocytes # (Manual) (1.2-4.9) X10*3/uL POC Glucose 119 H (60-115) mg/dL Random Glucose (60-115) mg/dL Lactic Acid (0.5-2.0) mmol/L Lactic Acid F/U @ 2Hr (0.5-2.0) mmol/L Lactic Acid F/U @ 4Hr (0.5-2.0) mmol/L AST (5-37) U/L Alkaline Phosphatase (39-117) U/L Albumin (3.5-5.0) g/dL Lipase (8-78) U/L Urine Glucose (UA) (NEG) MG/DL Urine Blood (NEG) Short CBC 06/19/22 06/20/22 Range/Units 19:23 07:36 WBC 46.3 H* 62.9 H* (4.8-10.8) X10*3/uL Hgb 12.4 L 11.3 L (14.0-18.0) g/dl Hct 38.5 L 34.8 L (42.0-52.0) % Plt Count 227 174 (160-400) X10*3/uL BMP 06/19/22 06/20/22 19:53 07:36 Sodium 140 140 Potassium 3.6 3.7 Chloride 103 107 Carbon Dioxide 24 24 BUN 13 9 Creatinine 0.69 0.58 Calcium 8.8 8.4 Liver Function 06/19/22 Range/Units 19:53 Total Bilirubin 0.8 (0.0-1.0) mg/dL Direct Bilirubin 0.3 (0.0-0.5) mg/dL AST 61 H (5-37) U/L ALT 35 (0-40) U/L Alkaline Phosphatase 256 H (39-117) U/L Albumin 3.4 L (3.5-5.0) g/dL Urine 06/19/22 Range/Units 20:20 Urine Color YELLOW Urine Appearance CLEAR Urine pH 5.5 (5.0-8.0) Ur Specific [place] 1.015 (1.005-1.025) Urine Protein NEG (NEG-TRACE) MG/DL Urine Glucose (UA) 500 H (NEG) MG/DL All other labs normal. Assessment and Plan (1) Acidosis, lactic: Status: Acute (2) Urinary retention: Status: Acute Plan Optimize prostate medications Guerrero catheter for 4 weeks Outpatient voiding trial Procedures Date of Service Date of Service: 06/20/22
== END 2022-06-20 13:39 | disposition home health service (06) | DRG 696 ==
LOC: HO.ED 22:40 → HO.EDOVER 23:23
PROVIDERS: Admitting Provider Hospitalist; Emergency Provider Student in an Organized Health Care Education/Training Program; PCP Internal Medicine; Visit Provider Internal Medicine
DX: R33.9 Retention of urine, unspecified (principal); E87.2 Acidosis; C16.0 Malignant neoplasm of cardia; F41.9 Anxiety disorder, unspecified; E55.9 Vitamin D deficiency, unspecified; E11.42 Type 2 diabetes mellitus with diabetic polyneuropathy; E78.5 Hyperlipidemia, unspecified; Z20.822 Contact with and (suspected) exposure to COVID-19; Z89.512 Acquired absence of left leg below knee; Z79.4 Long term (current) use of insulin; Z79.899 Other long term (current) drug therapy
CPT/HCPCS: 36415; 51798; 71045; 71275; 80048; 80053; 81001; 82248; 82947; 83605; 83690; 85007; 85025; 85027; 85379; 87040; 87635; 96361; 96374; 99285; J0696; Q9967

== ENCOUNTER 2022-06-28 11:03 | Outpatient (REF) | payer MEDICARE, SELFPAY ==
[2022-06-28 10:58] LABS: Basophils Percent Auto 0.4 % (0-2); Eosinophils Absolute Auto 0.2 X10*3/uL (0.0-0.4); Eosinophils Percent Auto 1.8 % (0-4); Mean Corpuscular Volume 98.2 fL (80.0-98.0); PLT CLUMP 1; Red Cell Distribution Width 17.4 % (11.0-16.0); SCAN SMEAR FLAG 1
[2022-06-28 11:00] LABS: Hematocrit 33.4 % (42.0-52.0); Hemoglobin 10.8 g/dl (14.0-18.0); Imm Gran Abs Auto 0.05 X10*3/uL (0.00-0.03); Imm Gran Pct Auto 0.6 % (0.0-0.4); Lymphocytes Absolute Auto 1.6 X10*3/uL (1.2-4.9); Lymphocytes Percent Auto 18.8 % (20-40); Mean Corpuscular HGB Conc 32.3 g/dl (31.0-36.0); Mean Corpuscular Hemoglobin 31.8 pg (27.0-33.0); Mean Platelet Volume 11.6 fL (9.4-12.4); Monocytes Absolute Auto 0.8 X10*3/uL (0.1-1.2); Monocytes Percent Auto 9.5 % (2-11); Neutrophils Absolute Auto 5.9 x10*3/uL (2.0-8.3); Neutrophils Percent Auto 68.9 % (45-73)
[2022-06-28 11:01] LABS: MANUAL DIFF FLAG NO; Platelet Count 144 X10*3/uL (160-400); White Blood Count 8.5 X10*3/uL (4.8-10.8)
[2022-06-28 11:06] LABS: Estimated Average Glucose 154 mg/dL; Hemoglobin A1C 151.7323 umol/L
[2022-06-28 11:40] LABS: Alanine Aminotransferase 23 U/L (0-40); Alkaline Phosphatase 295 U/L (39-117); Anion Gap 15 (12-20); Aspartate Amino Transferase 37 U/L (5-37); Bilirubin Total 0.8 mg/dL (0.0-1.0); Blood Urea Nitrogen 12 mg/dL (9-16); Calcium 8.5 mg/dL (8.4-10.2); Carbon Dioxide 25 mmol/L (22-29); Chloride 105 mmol/L (96-108); Cholesterol 172 mg/dL; Estimated Glomerular Filt Rate > 60; Glucose Fasting 129 mg/dL (60-99); HDL Cholesterol 28 mg/dL; LDL Cholesterol Calculated 123 mg/dl; Potassium 4.3 mmol/L (3.3-5.1); Sodium 141 mmol/L (135-145); Triglycerides 105 mg/dL
[2022-06-28 11:54] LABS: TSH reflex Free T4 1.53 uIU/mL (0.32-4.0); Vitamin D 25-OH Total 36.6 ng/mL (>30)
== END 2022-06-28 11:04 | disposition home or self-care (01) ==
LOC: HO.LHD 11:03
PROVIDERS: Internal Medicine; Visit Provider Internal Medicine Medical Oncology
DX: E11.9 Type 2 diabetes mellitus without complications (principal); I10 Essential (primary) hypertension; E55.9 Vitamin D deficiency, unspecified; E78.00 Pure hypercholesterolemia, unspecified
CPT/HCPCS: 36415; 80053; 80061; 82306; 83036; 84443; 85025

== ENCOUNTER → 2022-07-09 09:14 | Outpatient (BNVA) | payer MEDICARE, SELFPAY | PROVIDERS: PCP Internal Medicine; Visit Provider Surgery | DX: C15.9 Malignant neoplasm of esophagus, unspecified (principal) | CPT/HCPCS: 99212 ==

== ENCOUNTER 2022-07-12 06:08 | Outpatient (REF) | payer MEDICARE, SELFPAY ==
[2022-07-12 09:56] LABS: Basophils Percent Auto 0.2 % (0-2); Eosinophils Percent Auto 0.2 % (0-4); Hemoglobin 11.7 g/dl (14.0-18.0); Imm Gran Abs Auto 0.12 X10*3/uL (0.00-0.03); Imm Gran Pct Auto 0.7 % (0.0-0.4); Lymphocytes Absolute Auto 1.9 X10*3/uL (1.2-4.9); Lymphocytes Percent Auto 10.6 % (20-40); MANUAL DIFF FLAG SCAN; Mean Corpuscular HGB Conc 32.5 g/dl (31.0-36.0); Mean Corpuscular Hemoglobin 32.2 pg (27.0-33.0); Mean Corpuscular Volume 99.2 fL (80.0-98.0); Monocytes Absolute Auto 2.1 X10*3/uL (0.1-1.2); Monocytes Percent Auto 11.3 % (2-11); Platelet Count 305 X10*3/uL (160-400); Red Blood Count 3.63 X10*6/uL (4.60-5.80); Red Cell Distribution Width 16.4 % (11.0-16.0); SCAN SMEAR FLAG 1; White Blood Count 18.1 X10*3/uL (4.8-10.8)
[2022-07-12 10:20] LABS: SLIDE REVIEW VERIFIED
[2022-07-12 11:11] LABS: Alanine Aminotransferase 25 U/L (0-40); Albumin Level 3.5 g/dL (3.5-5.0); Alkaline Phosphatase 318 U/L (39-117); Anion Gap 14 (12-20); Aspartate Amino Transferase 37 U/L (5-37); Bilirubin Total 0.5 mg/dL (0.0-1.0); Blood Urea Nitrogen 12 mg/dL (9-16); Calcium 9.1 mg/dL (8.4-10.2); Carbon Dioxide 26 mmol/L (22-29); Chloride 103 mmol/L (96-108); Estimated Glomerular Filt Rate > 60; Glucose Random 71 mg/dL (60-115); Sodium 139 mmol/L (135-145)
== END 2022-07-12 06:09 | disposition home or self-care (01) ==
LOC: HO.LHD 06:08
PROVIDERS: Absent Provider Internal Medicine; Visit Provider Internal Medicine Medical Oncology
DX: C15.4 Malignant neoplasm of middle third of esophagus (principal)
CPT/HCPCS: 36415; 80053; 85025

== ENCOUNTER → 2022-07-16 09:24 | Outpatient (BNVA) | payer MEDICARE, SELFPAY | PROVIDERS: PCP Internal Medicine; Visit Provider Urology | DX: R33.9 Retention of urine, unspecified (principal) | CPT/HCPCS: 51700; 51702 ==

== ENCOUNTER 2022-07-20 10:51 | Outpatient (REF) | payer MEDICARE, SELFPAY ==
--- NOTE | ~2022-07-20 | PE_ITS ---
EXAMINATION: Fluorine-18 FDG PET/CT Scan CLINICAL INDICATION: Subsequent treatment management. History of adenocarcinoma of the lower thoracic esophagus/GE junction, initially diagnosed in 2019, status post neoadjuvant chemoradiation. PROCEDURE: 73 minutes following the intravenous administration of 15.8 mCi of fluorine 18 FDG, images from the base of the skull to the mid thighs were obtained using a combined PET/CT scanner with CT scan based attenuation correction. No intravenous contrast was administered. Transverse, coronal, sagittal, and volume reconstruction projections were obtained. The patient's blood glucose as determined by a finger stick, was 180 mg/dl immediately prior to injection. The radiotracer was injected intravenously through left arm superficial vein, without any complications. Total CT exam dose-length product 211.44 mGy-cm * These CT images were obtained using dose optimization techniques as appropriate, variously including the following: Automated exposure control * Adjustment of mA and/or kV according to patient size (this includes techniques or standardized protocols for targeted exams where dose is matched to indication/reason for exam; i.e. extremities or head) * Use of iterative reconstruction technique COMPARISON: Most recent prior PET CT study done on 10/04/2019. FINDINGS: NECK AND VISUALIZED HEAD: No metabolically active disease is present. THORAX: Stable sub-5 mm noncalcified subpleural lung nodule is noted within the right upper lobe laterally (521:102). Another stable sub-5 mm Michelle-fissural lung nodule is noted within the right lower lobe (448:102). Persistent stable metabolically inactive nonspecific circumferential thickening is present within the distal thoracic esophagus extending into the GE junction region, may represent changes secondary to prior treatment, suboptimal distention versus physiologic changes or combination thereof. Right-sided Port-A-Cath is present with its tip seen projecting at the distal SVC. No evidence of any pleural or pericardial effusion. ABDOMEN AND PELVIS: No metabolically active disease. No significant change. Interval placement of a Guerrero's catheter is noted, appear in good position. Bilateral seminal vesicle calcifications are present. MUSCULOSKELETAL: No suspicious focal lesion, unchanged. Stable subcentimeter focal area of sclerosis is present involving L2 vertebral body to the left, unchanged since 10/04/2019. VASCULAR: Diffuse atherosclerotic disease including coronary arterial calcifications are present. No evidence of any aneurysm formation. PET/PET CT fusion skull to thigh IMPRESSION: 1. No metabolically active disease is present. Note is made of persistent stable metabolically inactive nonspecific circumferential thickening within the distal thoracic esophagus extending into the GE junction region, may represent changes secondary to prior treatment, suboptimal distention /physiologic changes or combination thereof. Direct visualization may be considered if local disease recurrence is clinically suspected. 2. Stable sub-5 mm noncalcified right upper and right lower lung nodules, unchanged since 10/04/2019. 3. Stable sub-5 mm focal area of sclerosis involving L2 vertebral body, unchanged since 10/04/2019, without any concordant increased metabolic activity. 4. Diffuse atherosclerotic disease including coronary artery calcifications, without aneurysm, unchanged. 5. Interval placement of a Guerrero's catheter, appear in good position.
== END 2022-07-20 10:52 | disposition home or self-care (01) ==
LOC: HO.PET 10:51
PROVIDERS: PCP Internal Medicine; Visit Provider Internal Medicine
DX: Z13.89 Encounter for screening for other disorder (principal)

== ENCOUNTER 2022-07-26 07:30 | Outpatient (REF) | payer MEDICARE, SELFPAY ==
[2022-07-26 12:35] LABS: MANUAL DIFF FLAG NO
[2022-07-26 12:42] LABS: Basophils Percent Auto 0.4 % (0-2); Eosinophils Absolute Auto 0.1 X10*3/uL (0.0-0.4); Eosinophils Percent Auto 0.9 % (0-4); Hematocrit 34.8 % (42.0-52.0); Hemoglobin 11.3 g/dl (14.0-18.0); Imm Gran Abs Auto 0.02 X10*3/uL (0.00-0.03); Imm Gran Pct Auto 0.3 % (0.0-0.4); Mean Corpuscular HGB Conc 32.5 g/dl (31.0-36.0); Mean Corpuscular Hemoglobin 32.3 pg (27.0-33.0); Mean Corpuscular Volume 99.4 fL (80.0-98.0); Mean Platelet Volume 10.3 fL (9.4-12.4); Monocytes Absolute Auto 0.7 X10*3/uL (0.1-1.2); Monocytes Percent Auto 8.9 % (2-11); Neutrophils Absolute Auto 4.9 x10*3/uL (2.0-8.3); Neutrophils Percent Auto 63.5 % (45-73); Platelet Count 218 X10*3/uL (160-400); White Blood Count 7.7 X10*3/uL (4.8-10.8)
[2022-07-26 13:14] LABS: Alanine Aminotransferase 24 U/L (0-40); Albumin Level 3.2 g/dL (3.5-5.0); Alkaline Phosphatase 260 U/L (39-117); Anion Gap 12 (12-20); Aspartate Amino Transferase 25 U/L (5-37); Bilirubin Direct 0.2 mg/dL (0.0-0.5); Bilirubin Total 0.6 mg/dL (0.0-1.0); Blood Urea Nitrogen 8 mg/dL (9-16); Calcium 8.8 mg/dL (8.4-10.2); Carbon Dioxide 28 mmol/L (22-29); Chloride 104 mmol/L (96-108); Estimated Glomerular Filt Rate > 60; Glucose Random 249 mg/dL (60-115); Potassium 3.6 mmol/L (3.3-5.1); Sodium 140 mmol/L (135-145); Total Protein 6.6 g/dL (6.5-8.0)
== END 2022-07-26 07:31 | disposition home or self-care (01) ==
LOC: HO.LHD 07:30
PROVIDERS: Visit Provider Internal Medicine Medical Oncology
DX: C15.4 Malignant neoplasm of middle third of esophagus (principal)
CPT/HCPCS: 36415; 80053; 82248; 85025

== ENCOUNTER 2022-08-02 10:32 | Outpatient (REF) | payer MEDICARE, OTHER, SELFPAY ==
[2022-08-02 10:42] LABS: MANUAL DIFF FLAG NO
[2022-08-02 11:35] LABS: Basophils Percent Auto 0.2 % (0-2); Eosinophils Absolute Auto 0.1 X10*3/uL (0.0-0.4); Eosinophils Percent Auto 0.6 % (0-4); Hematocrit 35.2 % (42.0-52.0); Hemoglobin 11.3 g/dl (14.0-18.0); Imm Gran Abs Auto 0.06 X10*3/uL (0.00-0.03); Imm Gran Pct Auto 0.5 % (0.0-0.4); Lymphocytes Absolute Auto 2.3 X10*3/uL (1.2-4.9); Lymphocytes Percent Auto 18.6 % (20-40); Mean Corpuscular HGB Conc 32.1 g/dl (31.0-36.0); Mean Corpuscular Hemoglobin 31.6 pg (27.0-33.0); Mean Corpuscular Volume 98.3 fL (80.0-98.0); Mean Platelet Volume 10.7 fL (9.4-12.4); Monocytes Percent Auto 8.2 % (2-11); Neutrophils Absolute Auto 8.7 x10*3/uL (2.0-8.3); Neutrophils Percent Auto 71.9 % (45-73); Platelet Count 216 X10*3/uL (160-400); Red Blood Count 3.58 X10*6/uL (4.60-5.80); Red Cell Distribution Width 15.7 % (11.0-16.0); White Blood Count 12.1 X10*3/uL (4.8-10.8)
[2022-08-02 11:44] LABS: Appearance Urine Cloudy; Color Urine Dark Yellow; Glucose Urine UA Negative (Negative); Leukocyte Esterase Urine Large (3+) (Negative); Nitrite Urine Positive (Negative); PH 5.5 (5.0-9.0); UMIC TRIGGER UACC YES; Urine Blood Negative (Negative); Urine Ketones Negative (Negative); Urine Protein 30 (1+) mg/dL (Neg-Trace)
[2022-08-02 12:11] LABS: Alanine Aminotransferase 20 U/L (0-40); Albumin Level 3.3 g/dL (3.5-5.0); Alkaline Phosphatase 241 U/L (39-117); Anion Gap 16 (12-20); Aspartate Amino Transferase 21 U/L (5-37); Bilirubin Direct 0.4 mg/dL (0.0-0.5); Bilirubin Total 0.9 mg/dL (0.0-1.0); Blood Urea Nitrogen 15 mg/dL (9-16); Carbon Dioxide 26 mmol/L (22-29); Chloride 105 mmol/L (96-108); Estimated Glomerular Filt Rate > 60; Glucose Random 175 mg/dL (60-115); Potassium 4.5 mmol/L (3.3-5.1); Sodium 142 mmol/L (135-145); Total Protein 6.9 g/dL (6.5-8.0)
[2022-08-02 12:29] LABS: Creatinine Urine 113.72 mg/dL; Microalbum/Creatinine Ratio Ur 67.7 ug/mg cr
[2022-08-02 12:40] LABS: Bacteria Urine 4+ (None Seen); Hyaline Casts Urine 0-2 /LPF (0-2); RBC Urine 0-2 /HPF (0-2); UACC Culture Trigger YES; WBC Urine >50 /HPF (0-5)
== END 2022-08-02 10:33 | disposition home or self-care (01) ==
LOC: HO.LAB 10:32
PROVIDERS: Absent Provider Internal Medicine; PCP Internal Medicine; Visit Provider Internal Medicine Medical Oncology
DX: E11.9 Type 2 diabetes mellitus without complications (principal); C15.4 Malignant neoplasm of middle third of esophagus; I10 Essential (primary) hypertension
CPT/HCPCS: 36415; 80053; 81001; 82043; 82248; 85025; 87086

== ENCOUNTER 2022-08-09 08:17 | Outpatient (REF) | payer MEDICARE, SELFPAY ==
[2022-08-09 11:02] LABS: MANUAL DIFF FLAG NO
[2022-08-09 11:09] LABS: Basophils Percent Auto 0.3 % (0-2); Eosinophils Absolute Auto 0.3 X10*3/uL (0.0-0.4); Eosinophils Percent Auto 4.8 % (0-4); Imm Gran Abs Auto 0.02 X10*3/uL (0.00-0.03); Imm Gran Pct Auto 0.3 % (0.0-0.4); Lymphocytes Absolute Auto 2.5 X10*3/uL (1.2-4.9); Lymphocytes Percent Auto 41.6 % (20-40); Mean Corpuscular HGB Conc 31.4 g/dl (31.0-36.0); Mean Corpuscular Hemoglobin 30.7 pg (27.0-33.0); Mean Corpuscular Volume 97.8 fL (80.0-98.0); Mean Platelet Volume 10.4 fL (9.4-12.4); Monocytes Absolute Auto 0.6 X10*3/uL (0.1-1.2); Monocytes Percent Auto 9.8 % (2-11); Neutrophils Absolute Auto 2.6 x10*3/uL (2.0-8.3); Neutrophils Percent Auto 43.2 % (45-73); Platelet Count 278 X10*3/uL (160-400); Red Blood Count 3.58 X10*6/uL (4.60-5.80); Red Cell Distribution Width 14.8 % (11.0-16.0)
[2022-08-09 11:35] LABS: Alanine Aminotransferase 20 U/L (0-40); Albumin Level 3.3 g/dL (3.5-5.0); Alkaline Phosphatase 317 U/L (39-117); Anion Gap 12 (12-20); Aspartate Amino Transferase 22 U/L (5-37); Bilirubin Direct 0.2 mg/dL (0.0-0.5); Bilirubin Total 0.3 mg/dL (0.0-1.0); Blood Urea Nitrogen 7 mg/dL (9-16); Calcium 8.9 mg/dL (8.4-10.2); Carbon Dioxide 28 mmol/L (22-29); Chloride 106 mmol/L (96-108); Estimated Glomerular Filt Rate > 60; Glucose Random 102 mg/dL (60-115); Potassium 3.5 mmol/L (3.3-5.1); Sodium 142 mmol/L (135-145); Total Protein 6.6 g/dL (6.5-8.0)
== END 2022-08-09 08:18 ==
LOC: HO.LHD 08:17
PROVIDERS: Visit Provider Internal Medicine Medical Oncology
DX: C15.4 Malignant neoplasm of middle third of esophagus (principal)
CPT/HCPCS: 36415; 80053; 82248; 85025

== ENCOUNTER → 2022-08-12 09:18 | Outpatient (BNVA) | payer MEDICARE, OTHER, SELFPAY | PROVIDERS: PCP Internal Medicine; Visit Provider Urology | DX: R33.9 Retention of urine, unspecified (principal) | CPT/HCPCS: 51700; 51798 ==

== ENCOUNTER 2022-08-23 06:08 | Outpatient (REF) | payer MEDICARE, OTHER, SELFPAY ==
[2022-08-23 10:38] LABS: MANUAL DIFF FLAG NO
[2022-08-23 10:44] LABS: Basophils Percent Auto 0.6 % (0-2); Eosinophils Absolute Auto 0.1 X10*3/uL (0.0-0.4); Eosinophils Percent Auto 2.2 % (0-4); Hematocrit 34.7 % (42.0-52.0); Hemoglobin 11.3 g/dl (14.0-18.0); Imm Gran Abs Auto 0.01 X10*3/uL (0.00-0.03); Imm Gran Pct Auto 0.2 % (0.0-0.4); Lymphocytes Absolute Auto 2.1 X10*3/uL (1.2-4.9); Lymphocytes Percent Auto 40.7 % (20-40); Mean Corpuscular HGB Conc 32.6 g/dl (31.0-36.0); Mean Corpuscular Hemoglobin 31.3 pg (27.0-33.0); Mean Corpuscular Volume 96.1 fL (80.0-98.0); Mean Platelet Volume 10.5 fL (9.4-12.4); Monocytes Absolute Auto 0.7 X10*3/uL (0.1-1.2); Monocytes Percent Auto 14.5 % (2-11); Neutrophils Absolute Auto 2.1 x10*3/uL (2.0-8.3); Neutrophils Percent Auto 41.8 % (45-73); Platelet Count 244 X10*3/uL (160-400); Red Blood Count 3.61 X10*6/uL (4.60-5.80); Red Cell Distribution Width 14.2 % (11.0-16.0); White Blood Count 5.1 X10*3/uL (4.8-10.8)
[2022-08-23 11:05] LABS: Alanine Aminotransferase 19 U/L (0-40); Albumin Level 3.4 g/dL (3.5-5.0); Alkaline Phosphatase 308 U/L (39-117); Anion Gap 14 (12-20); Aspartate Amino Transferase 27 U/L (5-37); Bilirubin Total 0.5 mg/dL (0.0-1.0); Blood Urea Nitrogen 13 mg/dL (9-16); Calcium 9.1 mg/dL (8.4-10.2); Carbon Dioxide 27 mmol/L (22-29); Chloride 106 mmol/L (96-108); Estimated Glomerular Filt Rate > 60; Glucose Random 173 mg/dL (60-115); Potassium 4.5 mmol/L (3.3-5.1); Sodium 142 mmol/L (135-145); Total Protein 7.2 g/dL (6.5-8.0)
== END 2022-08-23 06:09 | disposition home or self-care (01) ==
LOC: HO.LHD 06:08
PROVIDERS: Visit Provider Internal Medicine Medical Oncology
DX: Z01.812 Encounter for preprocedural laboratory examination (principal); C15.9 Malignant neoplasm of esophagus, unspecified
CPT/HCPCS: 36415; 80053; 85025

== ENCOUNTER → 2022-09-03 11:22 | Outpatient (BNVA) | payer MEDICARE, OTHER, SELFPAY | PROVIDERS: PCP Internal Medicine; Visit Provider Internal Medicine Endocrinology, Diabetes & Metabolism | DX: E11.65 Type 2 diabetes mellitus with hyperglycemia (principal); E11.21 Type 2 diabetes mellitus with diabetic nephropathy; E11.40 Type 2 diabetes mellitus with diabetic neuropathy, unspecified; C15.9 Malignant neoplasm of esophagus, unspecified; Z89.512 Acquired absence of left leg below knee; Z79.4 Long term (current) use of insulin; Z51.11 Encounter for antineoplastic chemotherapy | CPT/HCPCS: 82947; 99212 ==

== ENCOUNTER 2022-09-07 05:59 | Outpatient (REF) | payer MEDICARE, OTHER, SELFPAY ==
[2022-09-06 11:29] LABS: MANUAL DIFF FLAG NO
[2022-09-06 11:31] LABS: Basophils Percent Auto 0.3 % (0-2); Eosinophils Absolute Auto 0.2 X10*3/uL (0.0-0.4); Eosinophils Percent Auto 2.4 % (0-4); Hematocrit 32.3 % (42.0-52.0); Hemoglobin 10.8 g/dl (14.0-18.0); Imm Gran Abs Auto 0.01 X10*3/uL (0.00-0.03); Imm Gran Pct Auto 0.2 % (0.0-0.4); Lymphocytes Absolute Auto 1.7 X10*3/uL (1.2-4.9); Lymphocytes Percent Auto 27.3 % (20-40); Mean Corpuscular HGB Conc 33.4 g/dl (31.0-36.0); Mean Corpuscular Hemoglobin 31.2 pg (27.0-33.0); Mean Corpuscular Volume 93.4 fL (80.0-98.0); Mean Platelet Volume 10.6 fL (9.4-12.4); Monocytes Absolute Auto 0.8 X10*3/uL (0.1-1.2); Neutrophils Absolute Auto 3.7 x10*3/uL (2.0-8.3); Neutrophils Percent Auto 57.8 % (45-73); Platelet Count 222 X10*3/uL (160-400); Red Blood Count 3.46 X10*6/uL (4.60-5.80); Red Cell Distribution Width 14.2 % (11.0-16.0); White Blood Count 6.3 X10*3/uL (4.8-10.8)
[2022-09-06 12:45] LABS: Alanine Aminotransferase 26 U/L (0-40); Albumin Level 3.4 g/dL (3.5-5.0); Alkaline Phosphatase 277 U/L (39-117); Anion Gap 13 (12-20); Aspartate Amino Transferase 37 U/L (5-37); Bilirubin Direct 0.3 mg/dL (0.0-0.5); Bilirubin Total 0.5 mg/dL (0.0-1.0); Blood Urea Nitrogen 14 mg/dL (9-16); Calcium 8.5 mg/dL (8.4-10.2); Carbon Dioxide 27 mmol/L (22-29); Chloride 104 mmol/L (96-108); Estimated Glomerular Filt Rate > 60; Glucose Random 264 mg/dL (60-115); Potassium 3.5 mmol/L (3.3-5.1); Sodium 140 mmol/L (135-145); Total Protein 6.6 g/dL (6.5-8.0)
== END 2022-09-07 06:00 | disposition home or self-care (01) ==
LOC: HO.LHD 05:59
PROVIDERS: Visit Provider Internal Medicine Medical Oncology
DX: C15.4 Malignant neoplasm of middle third of esophagus (principal)
CPT/HCPCS: 36415; 80053; 82248; 85025

== ENCOUNTER → 2022-09-09 09:07 | Outpatient (BNVA) | payer MEDICARE, OTHER, SELFPAY | PROVIDERS: PCP Internal Medicine; Visit Provider Urology | DX: R33.9 Retention of urine, unspecified (principal) | CPT/HCPCS: 52000; 99212 ==

== ENCOUNTER 2022-09-20 06:00 | Outpatient (REF) | payer MEDICARE, SELFPAY ==
[2022-09-20 11:22] LABS: MANUAL DIFF FLAG NO
[2022-09-20 11:23] LABS: Basophils Percent Auto 0.3 % (0-2); Eosinophils Absolute Auto 0.2 X10*3/uL (0.0-0.4); Eosinophils Percent Auto 2.9 % (0-4); Hematocrit 37.3 % (42.0-52.0); Hemoglobin 11.7 g/dl (14.0-18.0); Imm Gran Abs Auto 0.02 X10*3/uL (0.00-0.03); Imm Gran Pct Auto 0.3 % (0.0-0.4); Lymphocytes Absolute Auto 2.9 X10*3/uL (1.2-4.9); Lymphocytes Percent Auto 43.4 % (20-40); Mean Corpuscular HGB Conc 31.4 g/dl (31.0-36.0); Mean Corpuscular Hemoglobin 29.2 pg (27.0-33.0); Mean Platelet Volume 10.1 fL (9.4-12.4); Monocytes Absolute Auto 0.5 X10*3/uL (0.1-1.2); Monocytes Percent Auto 6.9 % (2-11); Neutrophils Absolute Auto 3.1 x10*3/uL (2.0-8.3); Neutrophils Percent Auto 46.2 % (45-73); Platelet Count 285 X10*3/uL (160-400); Red Blood Count 4.01 X10*6/uL (4.60-5.80); Red Cell Distribution Width 13.9 % (11.0-16.0); White Blood Count 6.7 X10*3/uL (4.8-10.8)
== END 2022-09-20 06:01 | disposition home or self-care (01) ==
LOC: HO.LHD 06:00
PROVIDERS: Visit Provider Internal Medicine Medical Oncology
DX: Z13.89 Encounter for screening for other disorder (principal)
CPT/HCPCS: 36415; 85025

== ENCOUNTER 2022-09-20 13:52 | Outpatient (REF) | payer MEDICARE, SELFPAY ==
--- NOTE | ~2022-09-20 | XR_ITS ---
EXAMINATION: XR FOOT, RIGHT CLINICAL INFORMATION: Contusion. COMPARISON: None TECHNIQUE: AP, lateral, and oblique views of the right foot. FINDINGS: Bony alignment and mineralization are normal. No fracture, dislocation or right ankle joint effusion is seen. There is a minimal marginal osteophyte noted at the lateral articular surface of the distal tibia. There is no abnormal bone erosion. There are diffuse atherosclerotic calcifications. XR/XR foot RT min 3V IMPRESSION: 1. No fracture, dislocation or right ankle joint effusion is seen. 2. There is very mild osteoarthritic change of the right tibiotalar joint.
--- NOTE | ~2022-09-20 | US_ITS ---
EXAMINATION: COLOR-FLOW DUPLEX IMAGING OF THE UNILATERAL LOWER EXTREMITY ARTERIAL SYSTEM. VELOCITY MEASUREMENTS THROUGHOUT THE FEMORAL ARTERIES WITH ANKLE-BRACHIAL PERIPHERAL ARTERIAL TESTING. CLINICAL INFORMATION: This is a 72-year-old male with right lower extremity peripheral arterial disease. Interventional Radiologist: Som Oakes M.D., F.S.I.R., FMary Lou.Karen. COMPARISON: Comparison is made to a previous study dated 05/07/2020 which demonstrated a 1.1 right lower extremity ankle brachial index without evidence of hemodynamically significant stenosis. RIGHT FEMORAL RUNOFF VELOCITIES: The right common femoral artery measures 117 cm/s and triphasic. The right profunda femoral artery is 129 cm/s and is triphasic. Right proximal superficial femoral artery measures 129 cm/s and triphasic. Mid superficial femoral artery is 77 cm/s and triphasic. Distal right superficial femoral artery measures 109 cm/s and is triphasic. Right popliteal velocity measures 96 cm/s and is triphasic. The posterior tibial artery velocity measures 120 cm/s and was monophasic. An arrhythmia was demonstrated during the duplex portion of the examination. The right ankle-brachial index measures 1.14. US/US ANTONIO complete IMPRESSION: 1. Although atherosclerotic plaque is seen throughout the right lower extremity, no hemodynamically significant stenosis is seen in the major runoff vessels. There appears to be small vessel disease distally.
--- NOTE | ~2022-09-20 | US_ITS ---
EXAMINATION: COLOR-FLOW DUPLEX IMAGING OF THE UNILATERAL LOWER EXTREMITY ARTERIAL SYSTEM. VELOCITY MEASUREMENTS THROUGHOUT THE FEMORAL ARTERIES WITH ANKLE-BRACHIAL PERIPHERAL ARTERIAL TESTING. CLINICAL INFORMATION: This is a 72-year-old male with right lower extremity peripheral arterial disease. Interventional Radiologist: Som Oakes M.D., F.S.I.R., FMary Lou.Karen. COMPARISON: Comparison is made to a previous study dated 05/07/2020 which demonstrated a 1.1 right lower extremity ankle brachial index without evidence of hemodynamically significant stenosis. RIGHT FEMORAL RUNOFF VELOCITIES: The right common femoral artery measures 117 cm/s and triphasic. The right profunda femoral artery is 129 cm/s and is triphasic. Right proximal superficial femoral artery measures 129 cm/s and triphasic. Mid superficial femoral artery is 77 cm/s and triphasic. Distal right superficial femoral artery measures 109 cm/s and is triphasic. Right popliteal velocity measures 96 cm/s and is triphasic. The posterior tibial artery velocity measures 120 cm/s and was monophasic. An arrhythmia was demonstrated during the duplex portion of the examination. The right ankle-brachial index measures 1.14. US/US arterial duplex LE RT IMPRESSION: 1. Although atherosclerotic plaque is seen throughout the right lower extremity, no hemodynamically significant stenosis is seen in the major runoff vessels. There appears to be small vessel disease distally.
== END 2022-09-20 13:53 | disposition home or self-care (01) ==
LOC: HO.US 13:52
PROVIDERS: Visit Provider Surgery Vascular Surgery
DX: S90.31XA Contusion of right foot, initial encounter (principal); I70.211 Atherosclerosis of native arteries of extremities with intermittent claudication, right leg; X58.XXXA Exposure to other specified factors, initial encounter; Y93.9 Activity, unspecified; Y92.9 Unspecified place or not applicable; Y99.9 Unspecified external cause status
CPT/HCPCS: 36415; 73630; 85025; 93923; 93926

== ENCOUNTER 2022-10-04 06:31 | Outpatient (REF) | payer MEDICARE, SELFPAY | END 2022-10-04 06:32 | disposition home or self-care (01) | LOC: HO.LHD 06:31 | PROVIDERS: Visit Provider Internal Medicine Medical Oncology | DX: Z13.89 Encounter for screening for other disorder (principal) ==

== ENCOUNTER → 2022-10-12 13:26 | Outpatient (BNVA) | payer MEDICARE, BC, SELFPAY | PROVIDERS: PCP Internal Medicine; Visit Provider Urology | DX: R33.9 Retention of urine, unspecified (principal) | CPT/HCPCS: 51702 ==

== ENCOUNTER 2022-10-15 08:08 | Day surgery (SDC) | payer OTHER, MEDICARE, SELFPAY ==
--- NOTE | 2022-10-14 10:11 | HO.ANESPROP2 ---
Documented by User: Kaity Bautista NP 10/14/22 10:17 HPI - Anesthesia Eval Consult details Narrative: 72yo M for Upper Endoscopy Esophageal CA with current chemo tx s/p EGD 11/2021 with [facility] Active Problems Active Problems: All Active Problems (Updated 09/21/22 @ 09:41 by Juan Anna MD) Superficial bruising of foot (Acute) Traumatic ecchymosis of right foot (Acute) Urinary retention with incomplete bladder emptying (Acute) Adenocarcinoma of cardio-esophageal junction (Acute ~2019) Esophageal cancer (Acute ~2019) Benign essential hypertension (Acute) HLD (hyperlipidemia) (Acute) Diabetes type 2, uncontrolled (Acute) Diabetic nephropathy associated with type 2 diabetes mellitus (Acute) Diabetic neuropathy associated with type 2 diabetes mellitus (Acute) 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 (Acute) Leukocytosis (Acute) Acidosis, lactic (Acute) Urinary retention (Acute) History of recurrent UTI (urinary tract infection) (Acute) Leukocytosis (Acute) Depression (Acute) Anxiety (Acute) Constipation (Acute) Keratotic lesion (Acute) Vitamin D deficiency (Acute) Past Medical History Medical History (Updated 10/15/22 @ 09:26 by Patricia Khan RN) Adenocarcinoma of cardio-esophageal junction (~2019) Anxiety Benign essential hypertension Constipation Depression Diabetes type 2, uncontrolled Diabetic nephropathy associated with type 2 diabetes mellitus Diabetic neuropathy associated with type 2 diabetes mellitus HLD (hyperlipidemia) Keratotic lesion 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 Family history of problems with anesthesia: No Surgical History Surgical History History of atherectomy (~2018) History of esophagogastroduodenoscopy History of left below knee amputation (~2018) History of Problems with Anesthesia: No Social History Social History Household Members: Family Housing: House Alcohol intake: never Patient Tobacco Use Status: Never used Tobacco e-Cigarette/Vaping Use: Never Used Second Hand Smoke Exposure: Yes Use of substances other than those prescribed or required for medical reasons: No Are you DNR?: No Advance Directives: Yes Advance Directives on File: Yes Advance Directives Date on File: 08/19/20 service: No Current occupational status: retired and disabled Cognitive needs: No (cane/wheelchair) Hearing needs: No Vision needs: Yes (glasses) Meds Allergies Allergy/AdvReac Type Severity Reaction Status Date / Time No Known Allergies Allergy Verified 09/15/22 02:56 Home Medications Medication Instructions Recorded Confirmed Last Taken Type aluminum-mag hydroxide-simethicone 80 ml PO USEASDIRECTD 06/19/22 09/15/22 Unknown History 400 mg-400 mg-40 mg/5 mL oral susp (Antacid Maximum Strength) blood sugar diagnostic (FreeStyle 06/19/22 09/15/22 Unknown History Lite Strips) cholecalciferol (vitamin D3) 25 1 cap PO QAM 06/19/22 09/15/22 Unknown History mcg (1,000 unit) capsule (Vitamin D3) diphenhydramine HCl 12.5 mg/5 mL See Rx Instructions .Route .COMPLEX 06/19/22 09/15/22 Unknown History oral liquid (Allergy Relief (diphenhydramine)) ferrous sulfate 325 mg (65 mg 1 tab PO QAM 06/19/22 09/15/22 Unknown History iron) tablet (FeroSul) glucagon 0.5 mg/0.1 mL 0.1 ml subcut DAILY diabetes 06/19/22 09/15/22 Unknown History subcutaneous auto-injector (Gvoke mellitus HypoPen 2-Pack) metoprolol succinate 25 mg 0.5 tab PO QPM 06/19/22 09/15/22 Unknown History tablet,extended release 24 hr pen needle, diabetic 32 gauge x 06/19/22 09/15/22 Unknown History (Pentips) duloxetine 30 mg capsule,delayed 30 mg PO 09/08/22 09/15/22 Unknown History release losartan 100 mg tablet 100 mg PO DAILY 09/08/22 09/15/22 Unknown History metformin 500 mg tablet,extended 1,000 mg PO BID 09/08/22 09/15/22 Unknown History release 24 hr Exam Exam Date and Time: October 14, 2022 1011 Pertinent Lab Results Pertinent Lab Results: Laboratory Tests 10/05/22 10/05/22 09:14 09:14 WBC 6.8 Hgb 11.4 L Hct 35.2 L Plt Count 225 Sodium 138 Potassium 3.8 Chloride 103 Carbon Dioxide 26 BUN 15 Creatinine 0.73 Narrative Narrative: EKG 01/2022 during [facility] [place] admit with urosepsis sinus tachycardia with 1mm elevations of V1-V3 with normal troponin and no reports of chest pain. Assessment and Plan Assessment Anesthesia Assessment: Chart Reviewed Final Anesthetic Review Family History of Problems with Anesthesia: No History of Problems with Anesthesia: No Documented by User: Mina Babin MD 10/15/22 10:27 [facility] Past Medical History Medical History (Updated 10/15/22 @ 09:26 by Patricia Khan RN) Adenocarcinoma of cardio-esophageal junction (~2018) Anxiety Benign essential hypertension Constipation Depression Diabetes type 2, uncontrolled Diabetic nephropathy associated with type 2 diabetes mellitus Diabetic neuropathy associated with type 2 diabetes mellitus HLD (hyperlipidemia) Keratotic lesion 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 Surgical History Surgical History History of atherectomy (~2018) History of esophagogastroduodenoscopy History of left below knee amputation (~2018) Social History Social History Household Members: Family Housing: House Alcohol intake: never Patient Tobacco Use Status: Never used Tobacco e-Cigarette/Vaping Use: Never Used Second Hand Smoke Exposure: Yes Use of substances other than those prescribed or required for medical reasons: No Are you DNR?: No Advance Directives: Yes Advance Directives on File: Yes Advance Directives Date on File: 08/19/20 service: No Current occupational status: retired and disabled Cognitive needs: No (cane/wheelchair) Hearing needs: No Vision needs: Yes (glasses) Meds Allergies Allergy/AdvReac Type Severity Reaction Status Date / Time No Known Allergies Allergy Verified 09/15/22 02:56 Home Medications Medication Instructions Recorded Confirmed Last Taken Type aluminum-mag hydroxide-simethicone 80 ml PO USEASDIRECTD 06/19/22 09/15/22 Unknown History 400 mg-400 mg-40 mg/5 mL oral susp (Antacid Maximum Strength) blood sugar diagnostic (FreeStyle 06/19/22 09/15/22 Unknown History Lite Strips) cholecalciferol (vitamin D3) 25 1 cap PO QAM 06/19/22 09/15/22 Unknown History mcg (1,000 unit) capsule (Vitamin D3) diphenhydramine HCl 12.5 mg/5 mL See Rx Instructions .Route .COMPLEX 06/19/22 09/15/22 Unknown History oral liquid (Allergy Relief (diphenhydramine)) ferrous sulfate 325 mg (65 mg 1 tab PO QAM 06/19/22 09/15/22 Unknown History iron) tablet (FeroSul) glucagon 0.5 mg/0.1 mL 0.1 ml subcut DAILY diabetes 06/19/22 09/15/22 Unknown History subcutaneous auto-injector (Gvoke mellitus HypoPen 2-Pack) metoprolol succinate 25 mg 0.5 tab PO QPM 06/19/22 09/15/22 Unknown History tablet,extended release 24 hr pen needle, diabetic 32 gauge x 06/19/22 09/15/22 Unknown History (Pentips) duloxetine 30 mg capsule,delayed 30 mg PO 09/08/22 09/15/22 Unknown History release losartan 100 mg tablet 100 mg PO DAILY 09/08/22 09/15/22 Unknown History metformin 500 mg tablet,extended 1,000 mg PO BID 09/08/22 09/15/22 Unknown History release 24 hr Exam Airway Mallampati Class: III TM Dist: >3cm Neck ROM: Full Heart: rrr Lungs: clear Assessment and Plan Final Anesthetic Review NPO: Yes ASA Class: IV Final Preanesthetic Review: No Changes in Pt Med Stat, Meds/Allgs Chart Reviewed, Consent Obtained/Reviewed and Anes Risks/Benef Reviewed Patient Risk: Intermediate Procedure Risk: Low Anesthetic Plan Anesthetic Plan: MAC: Disposition: Standard PACU
[2022-10-15 08:56] LABS: Glucose, Whole Blood 143 mg/dL (60-115)
[2022-10-15 09:00] VITALS: BMI 19.8
[2022-10-15 09:23] VITALS: BP 156/90; PULSE 105; RESP 16; TEMP 36.9; O2SAT 99
[2022-10-15] MEDS: Lactated Ringers 1,000 ML 100 ML IVCONT (09:42)
--- NOTE | 2022-10-15 10:19 | MHC.SHP ---
Pre-Procedural Eval Section A Date of Service: 10/15/22 The patient is an INPATIENT: No Changes since office visit: No Cold of Flu in the past 2 weeks, No New Medical Problems, No Changes in Medication and No Patient answered all questions The History & Physical has been completed within 30 days and I have reviewed it.: Yes Section B Chief Complaint: Malignant neoplasm of lower third of esophagus, Allergies: Allergies Allergy/AdvReac Type Severity Reaction Status Date / Time No Known Allergies Allergy Verified 09/15/22 02:56 Plan I have reviewed the history and physical and performed a pertinent physical examination on my patient. No changes have occurred unless specified.
[2022-10-15 10:56] VITALS: BP 131/73; PULSE 97; RESP 24; TEMP 36.6; O2SAT 97
[2022-10-15 11:11] VITALS: BP 151/81; PULSE 90; RESP 20; TEMP 36.6; O2SAT 99
--- NOTE | 2022-10-15 12:05 | P.BOP_ITS ---
Brief Operative Note Date of Service: 10/15/22 Pre-op diagnosis: esophageal ca Post-op diagnosis: same Procedure: egd Surgeon: Tahir Mancini Anesthesia: MAC Was an Medical Laboratory Technologist used for this Procedure?: No Estimated blood loss (mL): 5 Condition: stable Disposition: PACU
--- NOTE | 2022-10-15 21:41 | OP_ITS ---
SURGEON: Tahir Mancini MD INDICATIONS: Adenocarcinoma of the esophagus. PREOPERATIVE DIAGNOSIS: POSTOPERATIVE DIAGNOSIS: PROCEDURE PERFORMED: Upper endoscopy with balloon dilation and biopsy. ESTIMATED BLOOD LOSS: COMPLICATIONS: ANESTHESIA: Monitored anesthesia care. ASSISTANTS: SPECIMENS: DESCRIPTION OF PROCEDURE: The procedure was performed on 10/15/2022. History and physical performed. The risks and benefits of the procedure were explained to the patient. Informed consent was obtained. The patient was placed in the left lateral decubitus position. The Olympus video gastroscope was introduced into the esophagus, stomach, and duodenum. Examination was performed. The scope was removed. He tolerated the procedure well and returned to recovery area in stable condition. FINDINGS: Esophagus: There was stricture at about 35 cm in the distal esophagus just above the EG junction. This did not permit passage of the endoscope. Balloon dilation from 10 to 12 mm was performed with superficial mucosal disruption, but no deep tear. The scope was able to be passed subsequently, and the distal esophagus was widely patent. There was no evidence of recurrent adenocarcinoma. Biopsies were obtained from the EG junction. Stomach: The stomach showed no evidence of masses, ulcers, or polyps. Duodenum: The bulb and second portion were normal. IMPRESSION: 1. Esophageal stricture. 2. Adenocarcinoma of the EG junction. RECOMMENDATION: 1. Follow up the biopsy results. 2. Repeat endoscopy could be considered if the patient has recurrent dysphagia. MD PATRICA Ortega/LUÍS / [phone]
== END 2022-10-15 12:15 | disposition home or self-care (01) ==
PROVIDERS: PCP Internal Medicine; Visit Provider Internal Medicine Gastroenterology
PROC: 0DJ08ZZ Inspection of Upper Intestinal Tract, Via Natural or Artificial Opening Endoscopic (ICD-10-PCS; CPT 43235; principal; 2022-10-15 08:50)
DX: K22.2 Esophageal obstruction (principal); C15.5 Malignant neoplasm of lower third of esophagus; E11.21 Type 2 diabetes mellitus with diabetic nephropathy; E11.40 Type 2 diabetes mellitus with diabetic neuropathy, unspecified; E78.00 Pure hypercholesterolemia, unspecified; Z79.4 Long term (current) use of insulin; I73.9 Peripheral vascular disease, unspecified; E55.9 Vitamin D deficiency, unspecified; Z79.899 Other long term (current) drug therapy; Z92.3 Personal history of irradiation; Z92.21 Personal history of antineoplastic chemotherapy; Z89.512 Acquired absence of left leg below knee
CPT/HCPCS: 43249; 43239; 82947; 88305; C1726; J1642

== ENCOUNTER 2022-10-18 07:38 | Outpatient (REF) | payer OTHER, SELFPAY ==
[2022-10-18 11:38] LABS: MANUAL DIFF FLAG NO
[2022-10-18 11:55] LABS: Basophils Percent Auto 0.4 % (0-2); Eosinophils Absolute Auto 0.2 X10*3/uL (0.0-0.4); Hematocrit 35.7 % (42.0-52.0); Hemoglobin 11.5 g/dl (14.0-18.0); Imm Gran Abs Auto 0.03 X10*3/uL (0.00-0.03); Imm Gran Pct Auto 0.5 % (0.0-0.4); Mean Corpuscular HGB Conc 32.2 g/dl (31.0-36.0); Mean Corpuscular Volume 90.2 fL (80.0-98.0); Mean Platelet Volume 11.2 fL (9.4-12.4); Monocytes Absolute Auto 0.7 X10*3/uL (0.1-1.2); Monocytes Percent Auto 12.4 % (2-11); Neutrophils Absolute Auto 2.8 x10*3/uL (2.0-8.3); Neutrophils Percent Auto 48.7 % (45-73); Platelet Count 245 X10*3/uL (160-400); Red Blood Count 3.96 X10*6/uL (4.60-5.80); Red Cell Distribution Width 14.6 % (11.0-16.0); White Blood Count 5.7 X10*3/uL (4.8-10.8)
[2022-10-18 12:20] LABS: Alanine Aminotransferase 21 U/L (0-40); Albumin Level 3.6 g/dL (3.5-5.0); Alkaline Phosphatase 280 U/L (39-117); Anion Gap 9 (12-20); Aspartate Amino Transferase 23 U/L (5-37); Bilirubin Direct 0.2 mg/dL (0.0-0.5); Bilirubin Total 0.6 mg/dL (0.0-1.0); Blood Urea Nitrogen 13 mg/dL (9-16); Calcium 9.1 mg/dL (8.4-10.2); Carbon Dioxide 32 mmol/L (22-29); Chloride 107 mmol/L (96-108); Estimated Glomerular Filt Rate > 60; Glucose Random 158 mg/dL (60-115); Potassium 4.5 mmol/L (3.3-5.1); Sodium 143 mmol/L (135-145)
== END 2022-10-18 07:39 | disposition home or self-care (01) ==
LOC: HO.LHD 07:38
PROVIDERS: Visit Provider Internal Medicine Medical Oncology
DX: C15.4 Malignant neoplasm of middle third of esophagus (principal)
CPT/HCPCS: 36415; 80053; 82248; 85025

== ENCOUNTER 2022-11-01 14:24 | Outpatient (REF) | payer OTHER, SELFPAY ==
[2022-11-01 12:21] LABS: MANUAL DIFF FLAG NO
[2022-11-01 12:24] LABS: Basophils Percent Auto 0.4 % (0-2); Eosinophils Absolute Auto 0.2 X10*3/uL (0.0-0.4); Eosinophils Percent Auto 2.8 % (0-4); Hematocrit 37.6 % (42.0-52.0); Imm Gran Abs Auto 0.03 X10*3/uL (0.00-0.03); Imm Gran Pct Auto 0.4 % (0.0-0.4); Lymphocytes Absolute Auto 2.7 X10*3/uL (1.2-4.9); Lymphocytes Percent Auto 38.7 % (20-40); Mean Corpuscular HGB Conc 31.9 g/dl (31.0-36.0); Mean Corpuscular Hemoglobin 28.7 pg (27.0-33.0); Mean Platelet Volume 11.2 fL (9.4-12.4); Monocytes Absolute Auto 0.8 X10*3/uL (0.1-1.2); Monocytes Percent Auto 11.4 % (2-11); Neutrophils Absolute Auto 3.2 x10*3/uL (2.0-8.3); Neutrophils Percent Auto 46.3 % (45-73); Platelet Count 304 X10*3/uL (160-400); Red Blood Count 4.18 X10*6/uL (4.60-5.80); White Blood Count 6.8 X10*3/uL (4.8-10.8)
[2022-11-01 13:22] LABS: Alanine Aminotransferase 20 U/L (0-40); Albumin Level 3.8 g/dL (3.5-5.0); Alkaline Phosphatase 303 U/L (39-117); Anion Gap 9 (12-20); Aspartate Amino Transferase 23 U/L (5-37); Bilirubin Total 0.6 mg/dL (0.0-1.0); Blood Urea Nitrogen 15 mg/dL (9-16); Calcium 9.2 mg/dL (8.4-10.2); Carbon Dioxide 30 mmol/L (22-29); Chloride 107 mmol/L (96-108); Estimated Glomerular Filt Rate > 60; Glucose Random 54 mg/dL (60-115); Sodium 142 mmol/L (135-145); Total Protein 7.3 g/dL (6.5-8.0)
== END 2022-11-01 14:25 | disposition home or self-care (01) ==
LOC: HO.LHD 14:24
PROVIDERS: Visit Provider Internal Medicine Medical Oncology
DX: C15.4 Malignant neoplasm of middle third of esophagus (principal)
CPT/HCPCS: 36415; 80053; 85025

== ENCOUNTER → 2022-11-11 10:57 | Outpatient (BNVA) | payer OTHER, SELFPAY | PROVIDERS: PCP Internal Medicine; Visit Provider Urology | DX: R33.9 Retention of urine, unspecified (principal) | CPT/HCPCS: 51702 ==

== ENCOUNTER 2022-11-16 06:05 | Outpatient (REF) | payer OTHER, SELFPAY | END 2022-11-16 06:06 | disposition home or self-care (01) | LOC: HO.LHD 06:05 | PROVIDERS: Visit Provider Internal Medicine Medical Oncology | DX: Z13.89 Encounter for screening for other disorder (principal) ==

== ENCOUNTER 2022-11-29 06:16 | Outpatient (REF) | payer OTHER, SELFPAY ==
[2022-11-29 11:12] LABS: MANUAL DIFF FLAG NO
[2022-11-29 11:17] LABS: Basophils Percent Auto 0.4 % (0-2); Eosinophils Absolute Auto 0.3 X10*3/uL (0.0-0.4); Eosinophils Percent Auto 4.1 % (0-4); Hemoglobin 11.8 g/dl (14.0-18.0); Imm Gran Abs Auto 0.03 X10*3/uL (0.00-0.03); Imm Gran Pct Auto 0.4 % (0.0-0.4); Lymphocytes Absolute Auto 2.2 X10*3/uL (1.2-4.9); Lymphocytes Percent Auto 29.8 % (20-40); Mean Corpuscular HGB Conc 31.9 g/dl (31.0-36.0); Mean Corpuscular Hemoglobin 28.5 pg (27.0-33.0); Mean Corpuscular Volume 89.4 fL (80.0-98.0); Mean Platelet Volume 11.2 fL (9.4-12.4); Monocytes Absolute Auto 0.9 X10*3/uL (0.1-1.2); Monocytes Percent Auto 12.2 % (2-11); Neutrophils Absolute Auto 3.9 x10*3/uL (2.0-8.3); Neutrophils Percent Auto 53.1 % (45-73); Platelet Count 243 X10*3/uL (160-400); Red Blood Count 4.14 X10*6/uL (4.60-5.80); Red Cell Distribution Width 15.2 % (11.0-16.0); White Blood Count 7.4 X10*3/uL (4.8-10.8)
[2022-11-29 11:17] LABS: Appearance Urine Turbid; Color Urine Yellow; Glucose Urine UA Negative (Negative); Leukocyte Esterase Urine Large (3+) (Negative); Nitrite Urine Positive (Negative); Specific Gravity - Urine 1.015 (1.005-1.025); UMIC TRIGGER UACC YES; Urine Blood Trace (Negative); Urine Ketones Negative (Negative); Urine Protein 30 (1+) mg/dL (Neg-Trace)
[2022-11-29 11:20] LABS: Bacteria Urine 4+ (None Seen); Hyaline Casts Urine 0-2 /LPF (0-2); RBC Urine 0-2 /HPF (0-2); Squamous Epithelial Cell Urine 0-2 /HPF (0-2); UACC Culture Trigger YES; WBC Urine >50 /HPF (0-5)
[2022-11-29 11:43] LABS: Estimated Average Glucose 214 mg/dL; Hemoglobin A1c % 9.1 %
[2022-11-29 12:48] LABS: Alanine Aminotransferase 32 U/L (0-40); Albumin Level 3.7 g/dL (3.5-5.0); Alkaline Phosphatase 286 U/L (39-117); Anion Gap 10 (12-20); Aspartate Amino Transferase 31 U/L (5-37); Bilirubin Total 0.6 mg/dL (0.0-1.0); Blood Urea Nitrogen 14 mg/dL (9-16); Calcium 8.8 mg/dL (8.4-10.2); Carbon Dioxide 29 mmol/L (22-29); Chloride 106 mmol/L (96-108); Cholesterol 176 mg/dL; Estimated Glomerular Filt Rate > 60; Glucose Fasting 206 mg/dL (60-99); HDL Cholesterol 56 mg/dL; LDL Cholesterol Calculated 104 mg/dl; Potassium 4.1 mmol/L (3.3-5.1); Sodium 141 mmol/L (135-145); Triglycerides 82 mg/dL
[2022-11-29 12:50] LABS: Creatinine Urine 70.17 mg/dL; Microalbum/Creatinine Ratio Ur 128.2 ug/mg cr
[2022-11-29 13:05] LABS: TSH reflex Free T4 2.21 uIU/mL (0.32-4.0)
== END 2022-11-29 06:17 | disposition home or self-care (01) ==
LOC: HO.LHD 06:16
PROVIDERS: Internal Medicine; Visit Provider Internal Medicine Medical Oncology
DX: C15.4 Malignant neoplasm of middle third of esophagus (principal); E78.00 Pure hypercholesterolemia, unspecified; E55.9 Vitamin D deficiency, unspecified; E11.9 Type 2 diabetes mellitus without complications
CPT/HCPCS: 36415; 80053; 80061; 81001; 82043; 82306; 83036; 84443; 85025; 87086

== ENCOUNTER 2022-12-13 06:06 | Outpatient (REF) | payer OTHER, SELFPAY ==
[2022-12-13 11:40] LABS: MANUAL DIFF FLAG NO
[2022-12-13 12:09] LABS: Basophils Percent Auto 0.2 % (0-2); Eosinophils Absolute Auto 0.2 X10*3/uL (0.0-0.4); Eosinophils Percent Auto 2.6 % (0-4); Hematocrit 38.7 % (42.0-52.0); Hemoglobin 12.6 g/dl (14.0-18.0); Imm Gran Abs Auto 0.03 X10*3/uL (0.00-0.03); Imm Gran Pct Auto 0.4 % (0.0-0.4); Lymphocytes Absolute Auto 1.8 X10*3/uL (1.2-4.9); Lymphocytes Percent Auto 22.4 % (20-40); Mean Corpuscular HGB Conc 32.6 g/dl (31.0-36.0); Mean Platelet Volume 11.7 fL (9.4-12.4); Monocytes Absolute Auto 0.8 X10*3/uL (0.1-1.2); Monocytes Percent Auto 9.7 % (2-11); Neutrophils Absolute Auto 5.3 x10*3/uL (2.0-8.3); Neutrophils Percent Auto 64.7 % (45-73); Platelet Count 282 X10*3/uL (160-400); Red Blood Count 4.35 X10*6/uL (4.60-5.80); Red Cell Distribution Width 15.5 % (11.0-16.0); White Blood Count 8.2 X10*3/uL (4.8-10.8)
[2022-12-13 12:40] LABS: Alanine Aminotransferase 27 U/L (0-40); Albumin Level 3.7 g/dL (3.5-5.0); Alkaline Phosphatase 305 U/L (39-117); Anion Gap 11 (12-20); Aspartate Amino Transferase 24 U/L (5-37); Bilirubin Total 0.6 mg/dL (0.0-1.0); Blood Urea Nitrogen 15 mg/dL (9-16); Calcium 9.2 mg/dL (8.4-10.2); Carbon Dioxide 30 mmol/L (22-29); Chloride 104 mmol/L (96-108); Estimated Glomerular Filt Rate > 60; Glucose Random 203 mg/dL (60-115); Potassium 4.4 mmol/L (3.3-5.1); Sodium 141 mmol/L (135-145); Total Protein 7.3 g/dL (6.5-8.0)
== END 2022-12-13 06:07 | disposition home or self-care (01) ==
LOC: HO.LHD 06:06
PROVIDERS: Visit Provider Internal Medicine Medical Oncology
DX: R33.9 Retention of urine, unspecified (principal)
CPT/HCPCS: 36415; 51702; 80053; 85025

== ENCOUNTER 2022-12-27 07:43 | Outpatient (REF) | payer OTHER, SELFPAY ==
[2022-12-27 11:22] LABS: MANUAL DIFF FLAG NO
[2022-12-27 11:46] LABS: Basophils Percent Auto 0.4 % (0-2); Eosinophils Absolute Auto 0.2 X10*3/uL (0.0-0.4); Eosinophils Percent Auto 2.4 % (0-4); Hematocrit 41.7 % (42.0-52.0); Hemoglobin 13.3 g/dl (14.0-18.0); Imm Gran Abs Auto 0.04 X10*3/uL (0.00-0.03); Imm Gran Pct Auto 0.5 % (0.0-0.4); Lymphocytes Percent Auto 35.7 % (20-40); Mean Corpuscular HGB Conc 31.9 g/dl (31.0-36.0); Mean Corpuscular Hemoglobin 28.4 pg (27.0-33.0); Mean Corpuscular Volume 89.1 fL (80.0-98.0); Mean Platelet Volume 10.9 fL (9.4-12.4); Monocytes Absolute Auto 0.8 X10*3/uL (0.1-1.2); Monocytes Percent Auto 9.4 % (2-11); Neutrophils Absolute Auto 4.3 x10*3/uL (2.0-8.3); Neutrophils Percent Auto 51.6 % (45-73); Platelet Count 322 X10*3/uL (160-400); Red Blood Count 4.68 X10*6/uL (4.60-5.80); Red Cell Distribution Width 15.2 % (11.0-16.0); White Blood Count 8.3 X10*3/uL (4.8-10.8)
[2022-12-27 12:42] LABS: Alanine Aminotransferase 28 U/L (0-40); Albumin Level 4.1 g/dL (3.5-5.0); Alkaline Phosphatase 303 U/L (39-117); Anion Gap 16 (12-20); Aspartate Amino Transferase 25 U/L (5-37); Bilirubin Total 0.5 mg/dL (0.0-1.0); Blood Urea Nitrogen 13 mg/dL (9-16); Calcium 9.2 mg/dL (8.4-10.2); Carbon Dioxide 27 mmol/L (22-29); Chloride 101 mmol/L (96-108); Estimated Glomerular Filt Rate > 60; Glucose Random 231 mg/dL (60-115); Potassium 4.5 mmol/L (3.3-5.1); Sodium 139 mmol/L (135-145); Total Protein 7.7 g/dL (6.5-8.0)
== END 2022-12-27 07:44 | disposition home or self-care (01) ==
LOC: HO.LHD 07:43
PROVIDERS: Visit Provider Internal Medicine Medical Oncology
DX: C15.4 Malignant neoplasm of middle third of esophagus (principal)
CPT/HCPCS: 36415; 80053; 85025

== ENCOUNTER 2022-12-30 08:11 | Outpatient (REF) | payer OTHER, SELFPAY ==
--- NOTE | ~2022-12-30 | CT_ITS ---
EXAMINATION: CT CHEST WITH CONTRAST CLINICAL INFORMATION: Esophageal cancer COMPARISON: Previous chest CTA February 2022 TECHNIQUE: Multidetector volumetric CT imaging of the chest was obtained after the administration of 65 mL of Omnipaque 350 intravenous contrast without immediate adverse reactions. Axial MIP volume rendering provided. Sagittal and coronal reformatted images were obtained. This CT examination was performed using dose optimization techniques as appropriate, variously including the following: *Automated exposure control *Adjustment of mA and/or kV according to patient size (this includes techniques or standardized protocols for targeted exams where dose is matched to indication/reason for exam; i.e. extremities or head) *Use of iterative reconstruction technique DLP: 101 mGy-cm FINDINGS: LUNGS: There are multiple small calcified and noncalcified right pulmonary nodules that are stable. 3 mm calcified right upper lobe nodule axial image 50 series 5. 2 mm right upper lobe nodule axial image 7 series 5. 4 mm peripheral or subpleural right lower lobe nodule axial image 92 series 5. 3 mm calcified right lower lobe perivascular nodule axial image 92 series 5. 2 mm peripheral or subpleural right middle lobe nodule axial image 108 series 5. 4 mm calcified right lower lobe nodule axial image 111 series 5. 3 mm peripheral or subpleural right lower lobe nodule adjacent to the major fissure axial image 126 series 5. 2 adjacent 3 and 5 mm right lower lobe nodules axial image 125 and 126 series 5. There are new scattered areas of groundglass attenuation seen throughout the left lung. There is denser atelectasis or small infiltrate in the left lower lobe at the left lung base. This probably represents an infectious or inflammatory process. MEDIASTINUM: There is wall thickening of the mid and distal thoracic esophagus. There is mild stranding of the surrounding fat adjacent to the distal thoracic esophagus. A discrete mass is not appreciated. There are small mediastinal lymph nodes. No enlarged lymph nodes. Normal heart size. No pericardial effusion. Severe coronary artery calcification. Normal thyroid gland. Right jugular port with tip projecting over the SVC. PLEURA: There is no pleural effusion. No pleural mass or thickening. AXILLA: No lymphadenopathy. UPPER ABDOMEN: Atrophic changes of the pancreas. OSSEOUS STRUCTURES: Degenerative changes of the spine. CT/CT chest w IV con IMPRESSION: Wall thickening of the mid and distal thoracic esophagus and stranding of the surrounding fat. No discrete mass seen. Stable small calcified and noncalcified right pulmonary nodules. New scattered areas of groundglass attenuation in the left lung and denser atelectasis or small infiltrate at the left lung base probably representing an infectious or inflammatory process. Severe coronary artery calcification. Fleischner guidelines were followed.
[2022-12-30] MEDS: iohexoL 350 MG/ML 100 ML INFUS..BTL 65 ML IV (08:48)
== END 2022-12-30 08:12 | disposition home or self-care (01) ==
LOC: HO.CT 08:11
PROVIDERS: Visit Provider Internal Medicine Medical Oncology
DX: C16.0 Malignant neoplasm of cardia (principal)
CPT/HCPCS: 71260; Q9967

== ENCOUNTER 2023-01-10 06:55 | Outpatient (REF) | payer OTHER, SELFPAY ==
[2023-01-10 10:58] LABS: MANUAL DIFF FLAG NO
[2023-01-10 11:04] LABS: Basophils Percent Auto 0.4 % (0-2); Eosinophils Absolute Auto 0.2 X10*3/uL (0.0-0.4); Eosinophils Percent Auto 3.2 % (0-4); Hematocrit 40.9 % (42.0-52.0); Hemoglobin 13.1 g/dl (14.0-18.0); Imm Gran Abs Auto 0.05 X10*3/uL (0.00-0.03); Imm Gran Pct Auto 0.7 % (0.0-0.4); Lymphocytes Absolute Auto 2.6 X10*3/uL (1.2-4.9); Lymphocytes Percent Auto 36.6 % (20-40); Mean Corpuscular Hemoglobin 29.1 pg (27.0-33.0); Mean Corpuscular Volume 90.9 fL (80.0-98.0); Mean Platelet Volume 10.6 fL (9.4-12.4); Monocytes Absolute Auto 0.5 X10*3/uL (0.1-1.2); Neutrophils Absolute Auto 3.6 x10*3/uL (2.0-8.3); Neutrophils Percent Auto 52.1 % (45-73); Platelet Count 304 X10*3/uL (160-400); Red Cell Distribution Width 15.2 % (11.0-16.0)
[2023-01-10 11:26] LABS: Alanine Aminotransferase 24 U/L (0-40); Albumin Level 3.8 g/dL (3.5-5.0); Alkaline Phosphatase 240 U/L (39-117); Anion Gap 9 (12-20); Aspartate Amino Transferase 28 U/L (5-37); Bilirubin Total 0.4 mg/dL (0.0-1.0); Blood Urea Nitrogen 11 mg/dL (9-16); Carbon Dioxide 30 mmol/L (22-29); Chloride 104 mmol/L (96-108); Estimated Glomerular Filt Rate > 60; Glucose Random 211 mg/dL (60-115); Potassium 4.3 mmol/L (3.3-5.1); Sodium 139 mmol/L (135-145); Total Protein 7.5 g/dL (6.5-8.0)
== END 2023-01-10 06:56 | disposition home or self-care (01) ==
LOC: HO.LHD 06:55
PROVIDERS: Visit Provider Internal Medicine Medical Oncology
DX: C15.4 Malignant neoplasm of middle third of esophagus (principal)
CPT/HCPCS: 36415; 80053; 85025

== ENCOUNTER → 2023-01-14 14:58 | Outpatient (BNVA) | payer OTHER, SELFPAY | PROVIDERS: PCP Internal Medicine; Visit Provider Urology | DX: R33.9 Retention of urine, unspecified (principal) | CPT/HCPCS: 51701 ==

== ENCOUNTER 2023-01-17 05:39 | Outpatient (REF) | payer OTHER, SELFPAY ==
[2023-01-17 11:49] LABS: MANUAL DIFF FLAG NO
[2023-01-17 12:03] LABS: Basophils Percent Auto 0.5 % (0-2); Eosinophils Absolute Auto 0.1 X10*3/uL (0.0-0.4); Hematocrit 42.5 % (42.0-52.0); Hemoglobin 13.8 g/dl (14.0-18.0); Imm Gran Abs Auto 0.01 X10*3/uL (0.00-0.03); Imm Gran Pct Auto 0.2 % (0.0-0.4); Lymphocytes Absolute Auto 2.6 X10*3/uL (1.2-4.9); Lymphocytes Percent Auto 39.4 % (20-40); Mean Corpuscular HGB Conc 32.5 g/dl (31.0-36.0); Mean Corpuscular Hemoglobin 28.8 pg (27.0-33.0); Mean Corpuscular Volume 88.7 fL (80.0-98.0); Mean Platelet Volume 11.2 fL (9.4-12.4); Monocytes Absolute Auto 0.5 X10*3/uL (0.1-1.2); Monocytes Percent Auto 7.9 % (2-11); Neutrophils Absolute Auto 3.3 x10*3/uL (2.0-8.3); Platelet Count 293 X10*3/uL (160-400); Red Blood Count 4.79 X10*6/uL (4.60-5.80); Red Cell Distribution Width 15.3 % (11.0-16.0); White Blood Count 6.6 X10*3/uL (4.8-10.8)
[2023-01-17 12:42] LABS: Alanine Aminotransferase 32 U/L (0-40); Alkaline Phosphatase 209 U/L (39-117); Anion Gap 11 (12-20); Aspartate Amino Transferase 37 U/L (5-37); Blood Urea Nitrogen 13 mg/dL (9-16); Calcium 9.2 mg/dL (8.4-10.2); Carbon Dioxide 31 mmol/L (22-29); Chloride 102 mmol/L (96-108); Estimated Glomerular Filt Rate > 60; Glucose Random 267 mg/dL (60-115); Potassium 4.8 mmol/L (3.3-5.1); Sodium 139 mmol/L (135-145); Total Protein 7.4 g/dL (6.5-8.0)
== END 2023-01-17 05:40 | disposition home or self-care (01) ==
LOC: HO.LHD 05:39
PROVIDERS: Visit Provider Internal Medicine Medical Oncology
DX: Z13.89 Encounter for screening for other disorder (principal)
CPT/HCPCS: 36415; 80053; 85025

== ENCOUNTER 2023-01-18 09:45 | Day surgery (SDC) | payer OTHER, SELFPAY ==
--- NOTE | 2023-01-17 12:45 | HO.ANESPROP2 ---
Documented by User: Kaity Bautista NP 01/17/23 12:47 HPI - Anesthesia Eval Consult details Narrative: 72yo M for Upper Endoscopy Esophageal CA with current chemo tx, port a cath in situ s/p EGD 10/2022 with MAC PMF Active Problems Active Problems: All Active Problems (Updated 11/19/22 @ 09:42 by Juan Anna MD) Leukocytosis (Acute) History of recurrent UTI (urinary tract infection) (Acute) Esophageal cancer (Acute ~2019) Leukocytosis (Acute) Acidosis, lactic (Acute) Urinary retention (Acute) Urinary retention with incomplete bladder emptying (Acute) Traumatic ecchymosis of right foot (Acute) Superficial bruising of foot (Acute) Adenocarcinoma of cardio-esophageal junction (Acute ~2019) Benign essential hypertension (Acute) HLD (hyperlipidemia) (Acute) Diabetes type 2, uncontrolled (Acute) Diabetic nephropathy associated with type 2 diabetes mellitus (Acute) Diabetic neuropathy associated with type 2 diabetes mellitus (Acute) intermediate (current) use of insulin (Acute) Depression (Acute) Anxiety (Acute) Constipation (Acute) Keratotic lesion (Acute) Vitamin D deficiency (Acute) Past Medical History Medical History Adenocarcinoma of cardio-esophageal junction (~2019) Anxiety Benign essential hypertension Constipation Depression Diabetes type 2, uncontrolled Diabetic nephropathy associated with type 2 diabetes mellitus Diabetic neuropathy associated with type 2 diabetes mellitus HLD (hyperlipidemia) Keratotic lesion intermediate (current) use of insulin Port-A-Cath in place Suprapubic catheter Vitamin D deficiency Family History Family History Father Diabetes Hypertension Mother No problems noted. Family history of problems with anesthesia: No Surgical History Surgical History History of atherectomy (~2018) History of esophagogastroduodenoscopy History of left below knee amputation (~2018) History of Problems with Anesthesia: No Social History Social History Household Members: Family Housing: House Alcohol intake: never Patient Tobacco Use Status: Never used Tobacco e-Cigarette/Vaping Use: Never Used Second Hand Smoke Exposure: Yes Advance Directives: Yes Advance Directives on File: Yes Advance Directives Date on File: 08/19/20 service: No Current occupational status: retired and disabled Cognitive needs: No (cane/wheelchair) Hearing needs: No Vision needs: Yes (glasses) Meds Allergies Allergy/AdvReac Type Severity Reaction Status Date / Time No Known Allergies Allergy Verified 01/18/23 11:00 Home Medications Medication Instructions Recorded Confirmed Last Taken Type aluminum-mag hydroxide-simethicone 80 ml PO USEASDIRECTD 06/19/22 11/30/22 Unknown History 400 mg-400 mg-40 mg/5 mL oral susp (Antacid Maximum Strength) blood sugar diagnostic (FreeStyle 06/19/22 11/30/22 Unknown History Lite Strips) cholecalciferol (vitamin D3) 25 1 cap PO QAM 06/19/22 11/30/22 Unknown History mcg (1,000 unit) capsule (Vitamin D3) diphenhydramine HCl 12.5 mg/5 mL See Rx Instructions .Route .COMPLEX 06/19/22 11/30/22 Unknown History oral liquid (Allergy Relief (diphenhydramine)) ferrous sulfate 325 mg (65 mg 1 tab PO QAM 06/19/22 11/30/22 Unknown History iron) tablet (FeroSul) glucagon 0.5 mg/0.1 mL 0.1 ml subcut DAILY diabetes 06/19/22 11/30/22 Unknown History subcutaneous auto-injector (Gvoke mellitus HypoPen 2-Pack) metoprolol succinate 25 mg 0.5 tab PO QPM 06/19/22 11/30/22 Unknown History tablet,extended release 24 hr pen needle, diabetic 32 gauge x 06/19/22 11/30/22 Unknown History (Pentips) duloxetine 30 mg capsule,delayed 30 mg PO 09/08/22 09/15/22 Unknown History release losartan 100 mg tablet 100 mg PO DAILY 09/08/22 11/30/22 Unknown History metformin 500 mg tablet,extended 1,000 mg PO BID 09/08/22 11/30/22 Unknown History release 24 hr Exam Exam Date and Time: January 17, 2023 1245 Pertinent Lab Results Pertinent Lab Results: Laboratory Tests 01/17/23 01/17/23 10:09 10:09 WBC 6.6 Hgb 13.8 L Hct 42.5 Plt Count 293 Sodium 139 Potassium 4.8 Chloride 102 Carbon Dioxide 31 H BUN 13 Creatinine 0.86 Narrative Narrative: [place]2022 [place] [facility] [place] sinus tachycardia with 1mm elevations of V1-V3 with normal troponin and no reports of chest pain. Assessment and Plan Assessment Anesthesia Assessment: Chart Reviewed Final Anesthetic Review Family History of Problems with Anesthesia: No History of Problems with Anesthesia: No Documented by User: Francisco Wilkins MD 01/18/23 11:42 [facility] Past Medical History Medical History Adenocarcinoma of cardio-esophageal junction (~2018) Anxiety Benign essential hypertension Constipation Depression Diabetes type 2, uncontrolled Diabetic nephropathy associated with type 2 diabetes mellitus Diabetic neuropathy associated with type 2 diabetes mellitus HLD (hyperlipidemia) Keratotic lesion 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 Surgical History Surgical History History of atherectomy (~2018) History of esophagogastroduodenoscopy History of left below knee amputation (~2018) Social History Social History Household Members: Family Housing: House Alcohol intake: never Patient Tobacco Use Status: Never used Tobacco e-Cigarette/Vaping Use: Never Used Second Hand Smoke Exposure: Yes Advance Directives: Yes Advance Directives on File: Yes Advance Directives Date on File: 08/19/20 service: No Current occupational status: retired and disabled Cognitive needs: No (cane/wheelchair) Hearing needs: No Vision needs: Yes (glasses) Meds Allergies Allergy/AdvReac Type Severity Reaction Status Date / Time No Known Allergies Allergy Verified 01/18/23 11:00 Home Medications Medication Instructions Recorded Confirmed Last Taken Type aluminum-mag hydroxide-simethicone 80 ml PO USEASDIRECTD 06/19/22 11/30/22 Unknown History 400 mg-400 mg-40 mg/5 mL oral susp (Antacid Maximum Strength) blood sugar diagnostic (FreeStyle 06/19/22 11/30/22 Unknown History Lite Strips) cholecalciferol (vitamin D3) 25 1 cap PO QAM 06/19/22 11/30/22 Unknown History mcg (1,000 unit) capsule (Vitamin D3) diphenhydramine HCl 12.5 mg/5 mL See Rx Instructions .Route .COMPLEX 06/19/22 11/30/22 Unknown History oral liquid (Allergy Relief (diphenhydramine)) ferrous sulfate 325 mg (65 mg 1 tab PO QAM 06/19/22 11/30/22 Unknown History iron) tablet (FeroSul) glucagon 0.5 mg/0.1 mL 0.1 ml subcut DAILY diabetes 06/19/22 11/30/22 Unknown History subcutaneous auto-injector (Gvoke mellitus HypoPen 2-Pack) metoprolol succinate 25 mg 0.5 tab PO QPM 06/19/22 11/30/22 Unknown History tablet,extended release 24 hr pen needle, diabetic 32 gauge x 06/19/22 11/30/22 Unknown History (Pentips) duloxetine 30 mg capsule,delayed 30 mg PO 09/08/22 09/15/22 Unknown History release losartan 100 mg tablet 100 mg PO DAILY 09/08/22 11/30/22 Unknown History metformin 500 mg tablet,extended 1,000 mg PO BID 09/08/22 11/30/22 Unknown History release 24 hr Exam Airway Mallampati Class: I TM Dist: >3cm Neck ROM: Full Heart: ok Lungs: ok Assessment and Plan Assessment Anesthesia Assessment: Anesthesia Plan Discussed Final Anesthetic Review NPO: Yes ASA Class: III Final Preanesthetic Review: No Changes in Pt Med Stat, Meds/Allgs Chart Reviewed, Consent Obtained/Reviewed and Anes Risks/Benef Reviewed Patient Risk: High Procedure Risk: Intermediate Anesthetic Plan Anesthetic Plan: MAC: and Agree w/ Assess. and Plan Disposition: Standard PACU
[2023-01-18 10:05] VITALS: BMI 19.5
[2023-01-18] MEDS: Lactated Ringers 1,000 ML 100 ML IVCONT (10:49)
[2023-01-18 10:50] VITALS: BP 151/83; PULSE 93; RESP 18; TEMP 36.7; O2SAT 100
[2023-01-18 10:50] LABS: Glucose, Whole Blood 193 mg/dL (60-115)
--- NOTE | 2023-01-18 11:28 | MHC.SHP ---
Pre-Procedural Eval Section A Date of Service: 01/18/23 Section B Chief Complaint: abnormal findings,malignant neoplasm Details of Present Illness: see H&P and update Relevant Family History (Specify if Yes): No Relevant Social History: None Present Medications: see Short Stay Collaborative assessment Medical History: No relevant PMH History of Previous Operations: No relevant previous surgery Allergies: Allergies Allergy/AdvReac Type Severity Reaction Status Date / Time No Known Allergies Allergy Verified 01/18/23 11:00 Review of Systems Sugical H&P ROS: Negative: Constitution, Cardiovascular, Respiratory, Neurological, Psychiatric, Hem-Onc, Allergic/Immunologic, Gastrointestinal, Genitourinary, Musculoskeletal, Integumentary, Endocrine and Eyes/Ears/Nose/Throat Exam Surgical H&P Exam: Normal: HEENT, Normal: Heart, Normal: Lungs, Normal: Extremities, Normal: Abdomen, Normal: Skin and Normal: Neurological Plan Diagnosis/Plan: Unchanged I have reviewed the history and physical and performed a pertinent physical examination on my patient. No changes have occurred unless specified. Time Spent With Patient Time: Total time managing care of this patient today ____ minutes.
--- NOTE | 2023-01-18 12:22 | PM.OP ---
Brief Operative Note Date of Service: 01/18/23 Pre-op diagnosis: dysphagia esophageal stricture esophageal adenocarcinoma Post-op diagnosis: same Procedure: EGD Surgeon: Tahir Mancini Anesthesia: MAC Was an Campaign Management Senior Manager used for this Procedure?: No Estimated blood loss (mL): 5 Pathology: other Condition: stable Disposition: PACU
[2023-01-18 12:30] VITALS: BP 92/51; PULSE 95; RESP 24; TEMP 36.6; O2SAT 95
[2023-01-18 12:36] VITALS: BP 120/60; PULSE 91; RESP 20; O2SAT 94
[2023-01-18 12:46] VITALS: BP 108/55; PULSE 89; RESP 16; O2SAT 97
[2023-01-18 13:01] VITALS: BP 135/61; PULSE 93; RESP 15; O2SAT 98
[2023-01-18 13:15] VITALS: BP 108/55; PULSE 94; RESP 15; TEMP 36.4; O2SAT 98
--- NOTE | 2023-01-18 23:54 | OP_ITS ---
SURGEON: Tahir Mancini MD INDICATIONS: Dysphagia and esophageal stricture with history of esophageal adenocarcinoma. PREOPERATIVE DIAGNOSIS: POSTOPERATIVE DIAGNOSIS: PROCEDURE PERFORMED: ESTIMATED BLOOD LOSS: COMPLICATIONS: ANESTHESIA: Medications monitored anesthesia care. ASSISTANTS: SPECIMENS: DESCRIPTION OF PROCEDURE: DateL 01/18/23 History and physical was performed. The risks and benefits of the procedure were explained to the patient. Informed consent was obtained. The patient was placed in the left lateral decubitus position. The Olympus video gastroscope was introduced into the esophagus, stomach, and duodenum. Examination was performed. The scope was removed. He tolerated the procedure well and was taken to recovery in stable condition. FINDINGS: Esophagus: There was distal esophageal narrowing with the mass, began at about 36 cm extended to the EG junction at 40 cm. The mass actually extended about 2 cm below this as well into the proximal stomach. The scope initially could not be passed through the narrowed area and balloon dilation from 10 to 12 mm was performed, which allowed the scope to be passed into the stomach. Next, the narrowing was dilated to 15 mm incrementally. The mucosa was friable and the area was suspicious for recurrent adenocarcinoma. Biopsies were obtained from the mucosa. Stomach: The stomach was otherwise normal. Duodenum: The bulb and 2nd portion were normal. IMPRESSION: Distal esophageal mass lesion consistent with recurrence of adenocarcinoma. RECOMMENDATION: Follow up the biopsy results. MD PATRICA Ortega/LUÍS / [id number] MTDD
== END 2023-01-18 14:34 | disposition home or self-care (01) ==
PROVIDERS: PCP Internal Medicine; Visit Provider Internal Medicine Gastroenterology
PROC: (CPT 43249; principal; 2023-01-18 11:20)
DX: R13.10 Dysphagia, unspecified (principal); K22.2 Esophageal obstruction; C16.0 Malignant neoplasm of cardia; I10 Essential (primary) hypertension; E11.40 Type 2 diabetes mellitus with diabetic neuropathy, unspecified; E11.21 Type 2 diabetes mellitus with diabetic nephropathy; Z79.4 Long term (current) use of insulin
CPT/HCPCS: 43249; 43239; 82947; 88305; 88341; 88342; 88360; C1726; J3010

== ENCOUNTER 2023-01-31 07:01 | Outpatient (REF) | payer OTHER, SELFPAY ==
[2023-01-31 10:02] LABS: MANUAL DIFF FLAG NO
[2023-01-31 10:12] LABS: Basophils Percent Auto 0.4 % (0-2); Eosinophils Absolute Auto 0.2 X10*3/uL (0.0-0.4); Eosinophils Percent Auto 2.9 % (0-4); Hematocrit 41.9 % (42.0-52.0); Hemoglobin 13.4 g/dl (14.0-18.0); Imm Gran Abs Auto 0.02 X10*3/uL (0.00-0.03); Imm Gran Pct Auto 0.3 % (0.0-0.4); Lymphocytes Absolute Auto 2.8 X10*3/uL (1.2-4.9); Lymphocytes Percent Auto 39.4 % (20-40); Mean Corpuscular Hemoglobin 28.4 pg (27.0-33.0); Mean Corpuscular Volume 88.8 fL (80.0-98.0); Mean Platelet Volume 11.1 fL (9.4-12.4); Monocytes Absolute Auto 0.6 X10*3/uL (0.1-1.2); Neutrophils Absolute Auto 3.4 x10*3/uL (2.0-8.3); Platelet Count 303 X10*3/uL (160-400); Red Blood Count 4.72 X10*6/uL (4.60-5.80); Red Cell Distribution Width 14.8 % (11.0-16.0)
[2023-01-31 11:01] LABS: Alanine Aminotransferase 16 U/L (0-40); Albumin Level 3.8 g/dL (3.5-5.0); Alkaline Phosphatase 215 U/L (39-117); Anion Gap 14 (12-20); Aspartate Amino Transferase 20 U/L (5-37); Bilirubin Total 0.6 mg/dL (0.0-1.0); Blood Urea Nitrogen 14 mg/dL (9-16); Calcium 8.9 mg/dL (8.4-10.2); Carbon Dioxide 28 mmol/L (22-29); Chloride 100 mmol/L (96-108); Estimated Glomerular Filt Rate > 60; Glucose Random 252 mg/dL (60-115); Potassium 4.7 mmol/L (3.3-5.1); Sodium 137 mmol/L (135-145); Total Protein 6.9 g/dL (6.5-8.0)
== END 2023-01-31 07:02 | disposition home or self-care (01) ==
LOC: HO.LHD 07:01
PROVIDERS: Visit Provider Internal Medicine Medical Oncology
DX: C15.9 Malignant neoplasm of esophagus, unspecified (principal)
CPT/HCPCS: 36415; 80053; 85025

== ENCOUNTER → 2023-02-10 09:58 | Outpatient (BNVA) | payer OTHER, SELFPAY | PROVIDERS: PCP Internal Medicine; Visit Provider Urology | DX: R33.9 Retention of urine, unspecified (principal) | CPT/HCPCS: 51702 ==

== ENCOUNTER → 2023-02-11 10:14 | Outpatient (BNVA) | payer OTHER, SELFPAY | PROVIDERS: PCP Internal Medicine; Visit Provider Surgery | DX: C16.0 Malignant neoplasm of cardia (principal); C15.9 Malignant neoplasm of esophagus, unspecified | CPT/HCPCS: 99212 ==

== ENCOUNTER 2023-02-14 09:36 | Outpatient (REF) | payer OTHER, SELFPAY ==
[2023-02-14 11:20] LABS: MANUAL DIFF FLAG NO
[2023-02-14 11:56] LABS: Basophils Percent Auto 0.4 % (0-2); Eosinophils Absolute Auto 0.2 X10*3/uL (0.0-0.4); Hemoglobin 12.9 g/dl (14.0-18.0); Imm Gran Abs Auto 0.02 X10*3/uL (0.00-0.03); Imm Gran Pct Auto 0.4 % (0.0-0.4); Lymphocytes Percent Auto 39.4 % (20-40); Mean Corpuscular HGB Conc 32.3 g/dl (31.0-36.0); Mean Corpuscular Hemoglobin 28.5 pg (27.0-33.0); Mean Corpuscular Volume 88.5 fL (80.0-98.0); Mean Platelet Volume 10.9 fL (9.4-12.4); Monocytes Absolute Auto 0.6 X10*3/uL (0.1-1.2); Monocytes Percent Auto 11.8 % (2-11); Neutrophils Absolute Auto 2.2 x10*3/uL (2.0-8.3); Platelet Count 274 X10*3/uL (160-400); Red Blood Count 4.52 X10*6/uL (4.60-5.80); Red Cell Distribution Width 15.3 % (11.0-16.0)
[2023-02-14 12:40] LABS: Alanine Aminotransferase 19 U/L (0-40); Albumin Level 3.7 g/dL (3.5-5.0); Alkaline Phosphatase 236 U/L (39-117); Anion Gap 12 (12-20); Aspartate Amino Transferase 20 U/L (5-37); Bilirubin Total 0.6 mg/dL (0.0-1.0); Blood Urea Nitrogen 12 mg/dL (9-16); Calcium 8.8 mg/dL (8.4-10.2); Carbon Dioxide 26 mmol/L (22-29); Chloride 102 mmol/L (96-108); Estimated Glomerular Filt Rate > 60; Glucose Random 375 mg/dL (60-115); Potassium 4.4 mmol/L (3.3-5.1); Sodium 136 mmol/L (135-145); Total Protein 6.8 g/dL (6.5-8.0)
== END 2023-02-14 09:37 | disposition home or self-care (01) ==
LOC: HO.LHD 09:36
PROVIDERS: Visit Provider Internal Medicine Medical Oncology
DX: C16.0 Malignant neoplasm of cardia (principal)
CPT/HCPCS: 36415; 80053; 85025

== ENCOUNTER 2023-02-28 07:06 | Outpatient (REF) | payer OTHER, SELFPAY ==
[2023-02-28 10:48] LABS: MANUAL DIFF FLAG NO
[2023-02-28 10:58] LABS: Basophils Percent Auto 0.3 % (0-2); Eosinophils Absolute Auto 0.2 X10*3/uL (0.0-0.4); Eosinophils Percent Auto 3.2 % (0-4); Hematocrit 41.5 % (42.0-52.0); Hemoglobin 13.3 g/dl (14.0-18.0); Imm Gran Abs Auto 0.03 X10*3/uL (0.00-0.03); Imm Gran Pct Auto 0.4 % (0.0-0.4); Lymphocytes Absolute Auto 2.9 X10*3/uL (1.2-4.9); Mean Corpuscular Hemoglobin 28.9 pg (27.0-33.0); Mean Platelet Volume 10.7 fL (9.4-12.4); Monocytes Absolute Auto 0.6 X10*3/uL (0.1-1.2); Monocytes Percent Auto 8.2 % (2-11); Neutrophils Absolute Auto 3.5 x10*3/uL (2.0-8.3); Neutrophils Percent Auto 47.9 % (45-73); Platelet Count 300 X10*3/uL (160-400); Red Blood Count 4.61 X10*6/uL (4.60-5.80); Red Cell Distribution Width 15.4 % (11.0-16.0); White Blood Count 7.2 X10*3/uL (4.8-10.8)
[2023-02-28 11:31] LABS: Alanine Aminotransferase 17 U/L (0-40); Albumin Level 3.7 g/dL (3.5-5.0); Alkaline Phosphatase 224 U/L (39-117); Anion Gap 13 (12-20); Aspartate Amino Transferase 21 U/L (5-37); Bilirubin Total 0.7 mg/dL (0.0-1.0); Blood Urea Nitrogen 11 mg/dL (9-16); Calcium 8.8 mg/dL (8.4-10.2); Carbon Dioxide 27 mmol/L (22-29); Chloride 106 mmol/L (96-108); Estimated Glomerular Filt Rate > 60; Glucose Random 172 mg/dL (60-115); Potassium 4.7 mmol/L (3.3-5.1); Sodium 141 mmol/L (135-145); Total Protein 6.7 g/dL (6.5-8.0)
== END 2023-02-28 07:07 | disposition home or self-care (01) ==
LOC: HO.LHD 07:06
PROVIDERS: Visit Provider Internal Medicine Medical Oncology
DX: C15.9 Malignant neoplasm of esophagus, unspecified (principal)
CPT/HCPCS: 36415; 80053; 85025

== ENCOUNTER → 2023-03-10 09:39 | Outpatient (BNVA) | payer OTHER, SELFPAY | PROVIDERS: PCP Internal Medicine; Visit Provider Urology | DX: R33.9 Retention of urine, unspecified (principal); Z87.440 Personal history of urinary (tract) infections | CPT/HCPCS: 51702; 99212 ==

== ENCOUNTER 2023-03-11 11:13 | Day surgery (SDC) | payer OTHER, SELFPAY ==
[2023-03-08 14:13] VITALS: BMI 24.2
--- NOTE | 2023-03-10 12:13 | P.CONAN_ITS ---
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 2, uncontrolled (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 Family history of problems with anesthesia: No Surgical History Surgical History History of atherectomy (~2018) History of esophagogastroduodenoscopy History of left below knee amputation (~2018) History of Problems with Anesthesia: No Social History Social History Household Members: Family Housing: House Alcohol intake: never Patient Tobacco Use Status: Never used Tobacco e-Cigarette/Vaping Use: Never Used Second Hand Smoke Exposure: Yes Advance Directives Date on File: 08/19/20 service: No Current occupational status: retired and disabled Cognitive needs: No (cane/wheelchair) Hearing needs: No Vision needs: Yes (glasses) Meds Allergies Allergy/AdvReac Type Severity Reaction Status Date / Time No Known Allergies Allergy Verified 03/15/23 16:10 Home Medications Medication Instructions Recorded Confirmed Last Taken Type aluminum-mag hydroxide-simethicone 80 ml PO USEASDIRECTD 06/19/22 03/15/23 Unknown History 400 mg-400 mg-40 mg/5 mL oral susp (Antacid Maximum Strength) blood sugar diagnostic (FreeStyle 06/19/22 03/15/23 Unknown History Lite Strips) cholecalciferol (vitamin D3) 25 1 cap PO QAM 06/19/22 03/15/23 Unknown History mcg (1,000 unit) capsule (Vitamin D3) diphenhydramine HCl 12.5 mg/5 mL See Rx Instructions .Route .COMPLEX 06/19/22 03/15/23 Unknown History oral liquid (Allergy Relief (diphenhydramine)) ferrous sulfate 325 mg (65 mg 1 tab PO QAM 06/19/22 03/15/23 Unknown History iron) tablet (FeroSul) glucagon 0.5 mg/0.1 mL 0.1 ml subcut DAILY PRN 06/19/22 03/15/23 Unknown History subcutaneous auto-injector (Gvoke Hypoglycemia HypoPen 2-Pack) metoprolol succinate 25 mg 0.5 tab PO QPM 06/19/22 03/15/23 Unknown History tablet,extended release 24 hr pen needle, diabetic 32 gauge x 06/19/22 03/15/23 Unknown History (Pentips) duloxetine 30 mg capsule,delayed 30 mg PO DAILY 09/08/22 03/15/23 Unknown History release losartan 100 mg tablet 100 mg PO DAILY 09/08/22 03/15/23 Unknown History metformin 500 mg tablet,extended 1,000 mg PO BID 09/08/22 03/15/23 Unknown History release 24 hr Exam Exam Date and Time: March 10, 2023 1213 Height,Weight and Vital Signs: Height 5 ft 6 in Weight 68.039 kg Pertinent Lab Results Pertinent Lab Results: Laboratory Tests 02/28/23 02/28/23 09:40 09:40 WBC 7.2 Hgb 13.3 L Hct 41.5 L Plt Count 300 Sodium 141 Potassium 4.7 Chloride 106 Carbon Dioxide 27 BUN 11 Creatinine 0.80 Narrative Narrative: EKG 01/2022 during [facility] [place] admit with urosepsis sinus tachycardia with 1mm elevations of V1-V3 with normal troponin and no reports of chest pain. Assessment and Plan Assessment Anesthesia Assessment: Chart Reviewed Final Anesthetic Review Family History of Problems with Anesthesia: No History of Problems with Anesthesia: No
[2023-03-11 11:55] VITALS: BP 141/85; PULSE 103; RESP 18; TEMP 36.7; O2SAT 100
--- NOTE | 2023-03-11 13:33 | P.CONAN_ITS ---
[facility] Active Problems Active Problems: All Active Problems (Updated 03/08/23 @ 13:47 by Michelle Gamboa RN) History of recurrent UTI (urinary tract infection) (Acute) Esophageal cancer (Acute ~2019) Leukocytosis (Acute) Acidosis, lactic (Acute) Urinary retention with incomplete bladder emptying (Acute) Traumatic ecchymosis of right foot (Acute) Superficial bruising of foot (Acute) Adenocarcinoma of cardio-esophageal junction (Acute ~2019) Diabetes type 2, uncontrolled (Acute) half-way (current) use of insulin (Acute) Benign essential hypertension (Acute) HLD (hyperlipidemia) (Acute) Constipation (Acute) Vitamin D deficiency (Acute) Depression (Acute) Anxiety (Acute) Keratotic lesion (Acute) Past Medical History Medical History Adenocarcinoma of cardio-esophageal junction (~2019) Anxiety Benign essential hypertension Constipation Depression Diabetes type 2, uncontrolled HLD (hyperlipidemia) Keratotic lesion half-way (current) use of insulin Port-A-Cath in place Suprapubic catheter Vitamin D deficiency Family History Family History Father Diabetes Hypertension Mother No problems noted. Family history of problems with anesthesia: No Surgical History Surgical History History of atherectomy (~2018) History of esophagogastroduodenoscopy History of left below knee amputation (~2018) History of Problems with Anesthesia: No Social History Social History Household Members: Family Housing: House Alcohol intake: never Patient Tobacco Use Status: Never used Tobacco e-Cigarette/Vaping Use: Never Used Second Hand Smoke Exposure: Yes Use of substances other than those prescribed or required for medical reasons: No Have you been hit, kicked, punched, or otherwise hurt by someone within the past year? If so, by whom?: No Advance Directives: Yes Advance Directives Information Provided: Yes Advance Directives on File: Yes Advance Directives Date on File: 08/19/20 Nutrition Risks: Difficulty swallowing service: No Current occupational status: retired and disabled Cognitive needs: No (cane/wheelchair) Hearing needs: No Vision needs: Yes (glasses) Meds Allergies Allergy/AdvReac Type Severity Reaction Status Date / Time No Known Allergies Allergy Verified 03/10/23 09:52 Active Medications: Current Medications Lactated Ringer's (Lr) 1,000 mls @ 100 mls/hr IVCONT .Q10H COURTNEY Home Medications Medication Instructions Recorded Confirmed Last Taken Type aluminum-mag hydroxide-simethicone 80 ml PO USEASDIRECTD 06/19/22 03/08/23 Unknown History 400 mg-400 mg-40 mg/5 mL oral susp (Antacid Maximum Strength) blood sugar diagnostic (FreeStyle 06/19/22 02/11/23 Unknown History Lite Strips) cholecalciferol (vitamin D3) 25 1 cap PO QAM 06/19/22 03/08/23 Unknown History mcg (1,000 unit) capsule (Vitamin D3) diphenhydramine HCl 12.5 mg/5 mL See Rx Instructions .Route .COMPLEX 06/19/22 03/08/23 Unknown History oral liquid (Allergy Relief (diphenhydramine)) ferrous sulfate 325 mg (65 mg 1 tab PO QAM 06/19/22 03/08/23 Unknown History iron) tablet (FeroSul) glucagon 0.5 mg/0.1 mL 0.1 ml subcut DAILY PRN 06/19/22 03/08/23 Unknown History subcutaneous auto-injector (Gvoke Hypoglycemia HypoPen 2-Pack) metoprolol succinate 25 mg 0.5 tab PO QPM 06/19/22 03/08/23 Unknown History tablet,extended release 24 hr pen needle, diabetic 32 gauge x 06/19/22 02/11/23 Unknown History (Pentips) duloxetine 30 mg capsule,delayed 30 mg PO 09/08/22 02/11/23 Unknown History release losartan 100 mg tablet 100 mg PO DAILY 09/08/22 03/08/23 Unknown History metformin 500 mg tablet,extended 1,000 mg PO BID 09/08/22 03/08/23 Unknown History release 24 hr Exam Exam Date and Time: March 11, 2023 1333 Height,Weight and Vital Signs: Height 5 ft 6 in Weight 68.039 kg Last Vital Signs Temp 98.0 F 03/11/23 11:55 Pulse 103 H 03/11/23 11:55 Resp 18 03/11/23 11:55 BP 141/85 H 03/11/23 11:55 Pulse Ox 100 03/11/23 11:55 O2 Del Method Room Air 03/11/23 11:55 Airway Mallampati Class: III TM Dist: >3cm Neck ROM: Full Heart: RRR Lungs: CTA Assessment and Plan Final Anesthetic Review Family History of Problems with Anesthesia: No History of Problems with Anesthesia: No ASA Class: III Final Preanesthetic Review: Meds/Allgs Chart Reviewed, Consent Obtained/Reviewed and Anes Risks/Benef Reviewed Patient Risk: Low Procedure Risk: Low Anesthetic Plan Anesthetic Plan: MAC: Disposition: Standard PACU
--- NOTE | 2023-03-11 14:16 | MHC.SHP ---
Pre-Procedural Eval Section A Date of Service: 03/11/23 The patient is an INPATIENT: No Section B Chief Complaint: Malignant neoplasm of cardia,Malignant neoplasm Allergies: Allergies Allergy/AdvReac Type Severity Reaction Status Date / Time No Known Allergies Allergy Verified 03/10/23 09:52 Plan I have reviewed the history and physical and performed a pertinent physical examination on my patient. No changes have occurred unless specified. Time Spent With Patient Time: Total time managing care of this patient today ____ minutes.
--- NOTE | 2023-03-11 14:36 | P.CONAN_ITS ---
[facility] Active Problems Active Problems: All Active Problems (Updated 03/08/23 @ 13:47 by Michelle Gamboa RN) History of recurrent UTI (urinary tract infection) (Acute) Esophageal cancer (Acute ~2019) Leukocytosis (Acute) Acidosis, lactic (Acute) Urinary retention with incomplete bladder emptying (Acute) Traumatic ecchymosis of right foot (Acute) Superficial bruising of foot (Acute) Adenocarcinoma of cardio-esophageal junction (Acute ~2019) Diabetes type 2, uncontrolled (Acute) shelter (current) use of insulin (Acute) Benign essential hypertension (Acute) HLD (hyperlipidemia) (Acute) Constipation (Acute) Vitamin D deficiency (Acute) Depression (Acute) Anxiety (Acute) Keratotic lesion (Acute) Past Medical History Medical History Adenocarcinoma of cardio-esophageal junction (~2019) Anxiety Benign essential hypertension Constipation Depression Diabetes type 2, uncontrolled HLD (hyperlipidemia) Keratotic lesion 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 Family history of problems with anesthesia: No Surgical History Surgical History History of atherectomy (~2018) History of esophagogastroduodenoscopy History of left below knee amputation (~2018) History of Problems with Anesthesia: No Social History Social History Household Members: Family Housing: House Alcohol intake: never Patient Tobacco Use Status: Never used Tobacco e-Cigarette/Vaping Use: Never Used Second Hand Smoke Exposure: Yes Advance Directives Date on File: 08/19/20 service: No Current occupational status: retired and disabled Cognitive needs: No (cane/wheelchair) Hearing needs: No Vision needs: Yes (glasses) Meds Allergies Allergy/AdvReac Type Severity Reaction Status Date / Time No Known Allergies Allergy Verified 03/10/23 09:52 Active Medications: Current Medications Fentanyl (Fentanyl Citrate/Pf 100 Mcg/2 Ml Vial) 25 mcg IVPUSH Q5M PRN; Protocol PRN Reason: Pain, Moderate (Pain Scale 4-6 Lactated Ringer's (Lr) 1,000 mls @ 100 mls/hr IVCONT .Q10H COURTNEY Cefazolin Sodium/Dextrose (Ancef) 2 gm in 50 mls @ 100 mls/hr IV PREOP ONE Stop: 03/11/23 14:45 Home Medications Medication Instructions Recorded Confirmed Last Taken Type aluminum-mag hydroxide-simethicone 80 ml PO USEASDIRECTD 06/19/22 03/08/23 Unknown History 400 mg-400 mg-40 mg/5 mL oral susp (Antacid Maximum Strength) blood sugar diagnostic (FreeStyle 06/19/22 02/11/23 Unknown History Lite Strips) cholecalciferol (vitamin D3) 25 1 cap PO QAM 06/19/22 03/08/23 Unknown History mcg (1,000 unit) capsule (Vitamin D3) diphenhydramine HCl 12.5 mg/5 mL See Rx Instructions .Route .COMPLEX 06/19/22 03/08/23 Unknown History oral liquid (Allergy Relief (diphenhydramine)) ferrous sulfate 325 mg (65 mg 1 tab PO QAM 06/19/22 03/08/23 Unknown History iron) tablet (FeroSul) glucagon 0.5 mg/0.1 mL 0.1 ml subcut DAILY PRN 06/19/22 03/08/23 Unknown History subcutaneous auto-injector (Gvoke Hypoglycemia HypoPen 2-Pack) metoprolol succinate 25 mg 0.5 tab PO QPM 06/19/22 03/08/23 Unknown History tablet,extended release 24 hr pen needle, diabetic 32 gauge x 06/19/22 02/11/23 Unknown History (Pentips) duloxetine 30 mg capsule,delayed 30 mg PO 09/08/22 02/11/23 Unknown History release losartan 100 mg tablet 100 mg PO DAILY 09/08/22 03/08/23 Unknown History metformin 500 mg tablet,extended 1,000 mg PO BID 09/08/22 03/08/23 Unknown History release 24 hr Exam Exam Date and Time: March 11, 2023 1436 Height,Weight and Vital Signs: Height 5 ft 6 in Weight 68.039 kg Last Vital Signs Temp 98.0 F 03/11/23 11:55 Pulse 103 H 03/11/23 11:55 Resp 18 03/11/23 11:55 BP 141/85 H 03/11/23 11:55 Pulse Ox 100 03/11/23 11:55 O2 Del Method Room Air 03/11/23 11:55 Airway Mallampati Class: III TM Dist: >3cm Neck ROM: Full Heart: RRR Lungs: CTA Assessment and Plan Final Anesthetic Review Family History of Problems with Anesthesia: No History of Problems with Anesthesia: No ASA Class: III Final Preanesthetic Review: Meds/Allgs Chart Reviewed, Consent Obtained/Reviewed and Anes Risks/Benef Reviewed Patient Risk: Low Procedure Risk: Low Anesthetic Plan Anesthetic Plan: MAC: Disposition: Standard PACU
--- NOTE | 2023-03-11 15:15 | P.OP_ITS ---
Operative Note Operative Note Date of Service: 03/11/23 Narrative: Preoperative diagnosis: Esophageal stricture Postoperative diagnosis: Same Operation: EGD with balloon dilation Surgeon:Bee Stuart MD Supervisor Pipeline Maintenance: none Anesthesia: General Specimens: None EBL: Minimal Operation in detail: The patient was brought to the operating room, placed supine on the operative table, anesthesia monitoring devices were placed, and the patient was intubated without difficulty. A time-out was performed confirming the correct patient, site, and procedure. The gastroscope was then inserted through the oropharynx and into the esophagus visualizing the esophagusDown to where the mass is at about 35-36 cm/GE junction. I could not pass the regular gastroscope through this area to get into the stomach. For that reason we decided to try dilation and see if I could do it then.. The balloon was then placed across the distal portion of the stricture including the GE junction and under vision was serially dilated from 10-12 mm. there was quite a bit of resistance once we got to 12 mm and we decided to stop at that point. Again I tried with just the gastroscope to get through after dilation at which point I was unsuccessful and then 1 to push it any further. The patient tolerated the procedure well and brought to the recovery room in stable condition.
[2023-03-11 15:22] VITALS: BP 127/78; PULSE 110; RESP 16; TEMP 37.4; O2SAT 96
[2023-03-11 15:37] VITALS: BP 142/93; PULSE 108; RESP 20; TEMP 37; O2SAT 96
--- NOTE | 2023-03-11 16:32 | HO.POSTANES ---
Post Anesthesia Evaluation Post Anesthesia Evaluation Vital Signs: Vital Signs Temp Pulse Resp BP Pulse Ox O2 Del Method 03/11/23 15:37 98.6 F 108 H 20 142/93 H 96 Room Air 03/11/23 15:22 99.3 F 110 H 16 127/78 96 Room Air 03/11/23 11:55 98.0 F 103 H 18 141/85 H 100 Room Air Anesthesia: Monitored Mental Status: Awake Pain Control: Satisfactory Nausea/Vomiting: None Hydration: Adequate Anesthesia-Related Issues: No Anes. Related Issues
== END 2023-03-11 16:06 ==
LOC: HO.SSS 11:14
PROVIDERS: PCP Internal Medicine; Visit Provider Surgery
PROC: 0DH63UZ Insertion of Feeding Device into Stomach, Percutaneous Approach (ICD-10-PCS; CPT 43246; principal; 2023-03-11 13:10)
DX: C15.9 Malignant neoplasm of esophagus, unspecified (principal); K22.2 Esophageal obstruction; C16.0 Malignant neoplasm of cardia; I10 Essential (primary) hypertension; E11.21 Type 2 diabetes mellitus with diabetic nephropathy; E11.40 Type 2 diabetes mellitus with diabetic neuropathy, unspecified; Z79.4 Long term (current) use of insulin; Z79.899 Other long term (current) drug therapy; E78.5 Hyperlipidemia, unspecified; E55.9 Vitamin D deficiency, unspecified
CPT/HCPCS: 43249; C1726; J0131; J0690; J1100; J1642; J2250; J3010

== ENCOUNTER 2023-03-14 06:46 | Outpatient (REF) | payer OTHER, SELFPAY ==
[2023-03-14 10:47] LABS: MANUAL DIFF FLAG NO
[2023-03-14 10:52] LABS: Basophils Percent Auto 0.4 % (0-2); Eosinophils Absolute Auto 0.4 X10*3/uL (0.0-0.4); Eosinophils Percent Auto 3.5 % (0-4); Hematocrit 45.1 % (42.0-52.0); Hemoglobin 14.5 g/dl (14.0-18.0); Imm Gran Abs Auto 0.04 X10*3/uL (0.00-0.03); Imm Gran Pct Auto 0.4 % (0.0-0.4); Lymphocytes Absolute Auto 2.5 X10*3/uL (1.2-4.9); Lymphocytes Percent Auto 25.3 % (20-40); Mean Corpuscular HGB Conc 32.2 g/dl (31.0-36.0); Mean Corpuscular Hemoglobin 29.1 pg (27.0-33.0); Mean Corpuscular Volume 90.6 fL (80.0-98.0); Monocytes Percent Auto 9.9 % (2-11); Neutrophils Absolute Auto 6.1 x10*3/uL (2.0-8.3); Neutrophils Percent Auto 60.5 % (45-73); Platelet Count 236 X10*3/uL (160-400); Red Blood Count 4.98 X10*6/uL (4.60-5.80); Red Cell Distribution Width 15.1 % (11.0-16.0)
[2023-03-14 12:24] LABS: Alanine Aminotransferase 15 U/L (0-40); Albumin Level 3.9 g/dL (3.5-5.0); Alkaline Phosphatase 226 U/L (39-117); Anion Gap 18 (12-20); Aspartate Amino Transferase 25 U/L (5-37); Bilirubin Total 0.8 mg/dL (0.0-1.0); Blood Urea Nitrogen 9 mg/dL (9-16); Calcium 9.2 mg/dL (8.4-10.2); Carbon Dioxide 22 mmol/L (22-29); Chloride 105 mmol/L (96-108); Estimated Glomerular Filt Rate > 60; Glucose Random 303 mg/dL (60-115); Sodium 141 mmol/L (135-145); Total Protein 7.6 g/dL (6.5-8.0)
== END 2023-03-14 06:47 | disposition home or self-care (01) ==
LOC: HO.LHD 06:46
PROVIDERS: Visit Provider Internal Medicine Medical Oncology
DX: C15.9 Malignant neoplasm of esophagus, unspecified (principal)
CPT/HCPCS: 36415; 80053; 85025

== ENCOUNTER 2023-03-26 21:36 | Inpatient (IN) | payer OTHER, SELFPAY ==
--- NOTE | ~2023-03-26 | CT_ITS ---
EXAMINATION: CT ABDOMEN AND PELVIS WITHOUT CONTRAST CLINICAL INFORMATION: Lower abdominal pain, question stones COMPARISON: 02/10/2022 TECHNIQUE: Multidetector volumetric imaging was performed from the superior aspect of the liver through the pubic symphysis. Sagittal and coronal reformatted images were obtained on the technologist's workstation. This CT examination was performed using dose optimization techniques as appropriate, variously including the following: *Automated exposure control *Adjustment of mA and/or kV according to patient size (this includes techniques or standardized protocols for targeted exams where dose is matched to indication/reason for exam; i.e. extremities or head) *Use of iterative reconstruction technique DLP: 499 mGy-cm FINDINGS: LUNG BASES: Mild dependent atelectasis. There is a thick-walled appearance of the distal esophagus redemonstrated. LIVER, GALLBLADDER, AND BILIARY TREE: The liver is normal in size, shape, and attenuation. No focal hepatic lesion or biliary ductal dilatation is identified on this noncontrast exam. The gallbladder is unremarkable with no evidence of radiopaque gallstones, gallbladder wall thickening, or obvious pericholecystic inflammatory changes. PANCREAS: Moderate fatty atrophy. SPLEEN: Unremarkable. ADRENAL GLANDS: Unremarkable. KIDNEYS AND URETERS: No hydronephrosis or obstructing calculi seen bilaterally. Mild bilateral perinephric stranding. BLADDER: Decompressed with Guerrero catheter. There is a thick-walled appearance of the bladder. Hyperdense material in the dependent bladder could reflect calcium or possibly excreted recently administered IV contrast. GASTROINTESTINAL TRACT: No evidence of bowel obstruction. There is scattered colonic diverticulosis. The appendix is unremarkable. No free fluid or free air is seen. ABDOMINAL WALL: No significant hernia is appreciated. LYMPH NODES: Normal. VASCULAR: Suboptimally assessed without intravenous contrast. There is moderate atherosclerotic calcification. Left renal artery stent is noted. PELVIC VISCERA: Prostate gland appears somewhat prominent. OSSEOUS STRUCTURES: Degenerative changes are noted in the spine. CT/CT abdomen pelvis wo IV con IMPRESSION: 1. Thick-walled appearance of the urinary bladder, which could be secondary to cystitis in the proper clinical setting. Correlation with urinalysis recommended. Hyperdense material in the dependent bladder could reflect calcium or possibly excreted recently administered IV contrast. 2. Redemonstrated thick-walled appearance of the distal esophagus, in patient with known esophageal cancer.
[2023-03-26 21:43] VITALS: BP 186/118; BP 204/122; PULSE 132; PULSE 140; RESP 22; TEMP 36.7; O2SAT 99; BMI 21.3
--- NOTE | 2023-03-26 21:45 | ED_ITS ---
HPI - General Adult General Chief complaint: Abdominal Pain Stated complaint: ABDOMINAL PAIN Time Seen by Provider: 03/26/23 21:41 Source: patient and EMS Mode of arrival: EMS Limitations: no limitations History of Present Illness HPI narrative: 72-year-old male history of recurrent UTIs, self a CHRIS cancer diagnosed 2019 recently completed chemotherapy, hyperlipidemia, hypertension, depression, anxiety presents the emergency department for evaluation of severe abdominal pain that started earlier today and has been worsening throughout the day currently reporting intermittent 10/10 lower abdominal pain, and inability to void, he reports he has the urge however is unable to void. Two days ago noted his urine smelled bad. Denies chest pain, shortness of breath, nausea, vomiting, headache, vision changes, dizziness, chest pain, shortness of breath. Related Data Home Medications Medication Instructions Recorded Confirmed aluminum-mag hydroxide-simethicone 80 ml PO USEASDIRECTD 06/19/22 03/15/23 400 mg-400 mg-40 mg/5 mL oral susp (Antacid Maximum Strength) blood sugar diagnostic (FreeStyle 06/19/22 03/15/23 Lite Strips) cholecalciferol (vitamin D3) 25 1 cap PO QAM 06/19/22 03/15/23 mcg (1,000 unit) capsule (Vitamin D3) diphenhydramine HCl 12.5 mg/5 mL See Rx Instructions .Route .COMPLEX 06/19/22 03/15/23 oral liquid (Allergy Relief (diphenhydramine)) glucagon 0.5 mg/0.1 mL 0.1 ml subcut DAILY PRN 06/19/22 03/15/23 subcutaneous auto-injector (Gvoke Hypoglycemia HypoPen 2-Pack) metoprolol succinate 25 mg 0.5 tab PO QPM 06/19/22 03/15/23 tablet,extended release 24 hr pen needle, diabetic 32 gauge x 06/19/22 03/15/23 (Pentips) duloxetine 30 mg capsule,delayed 30 mg PO DAILY 09/08/22 03/15/23 release losartan 100 mg tablet 100 mg PO DAILY 09/08/22 03/15/23 metformin 500 mg tablet,extended 1,000 mg PO BID 09/08/22 03/15/23 release 24 hr Previous Rx's Medication Instructions Recorded atorvastatin 40 mg tablet 40 mg PO QPM #30 tabs 06/21/22 duloxetine 30 mg capsule,delayed 30 mg PO BID #60 caps 08/10/22 release sprinkle diabetic shoes #1 ea 08/12/22 lancets 33 gauge (TRUEplus Lancets) #200 ea 08/18/22 mirtazapine 30 mg tablet 30 mg PO BEDTIME #90 tabs 08/20/22 ondansetron 8 mg disintegrating 1 tab PO Q8H PRN nausea #60 tabs 09/03/22 tablet insulin aspar prot-insulin aspart See Rx Instructions subcut BID #30 09/10/22 100 unit/mL (70-30) subcutaneous mL pen (Novolog Mix 70-30FlexPen U-100) amoxicillin-potassium clavulanate 1 tab PO Q12H #30 tabs 01/11/23 1,000 mg-62.5 mg tablet,ext.rel 12hr (Augmentin XR) duloxetine 20 mg capsule,delayed 20 mg PO BID #60 caps 01/25/23 release finasteride 5 mg tablet 5 mg PO DAILY 90 days #90 tabs 01/28/23 gabapentin 100 mg capsule 200 mg PO BEDTIME #180 caps 01/28/23 tamsulosin 0.4 mg capsule 0.4 mg PO BEDTIME 90 days #90 caps 01/28/23 Magic Mouthwash 10 ml PO QID #240 mL 03/15/23 Diphen/Lido/Antacid 1:1:1 240 mL suspension lorazepam 0.5 mg tablet 0.5 mg PO TID PRN anxiety #90 tabs 03/17/23 tramadol 50 mg tablet 50 mg PO Q6-8H PRN pain 30 days 03/17/23 #120 tabs docusate sodium 100 mg capsule 200 mg PO QPM PRN constipation #60 03/24/23 ea ferrous sulfate 325 mg (65 mg 325 mg PO QAM #30 tabs 03/24/23 iron) tablet (FeroSul) omeprazole 20 mg capsule,delayed 20 mg PO DAILY #60 caps 03/24/23 release Allergies Allergy/AdvReac Type Severity Reaction Status Date / Time No Known Allergies Allergy Verified 03/15/23 16:10 Review of Systems Review of Systems: Constitutional : No Weight loss, No Fever, No Chills, No Fatigue, No Malaise ENT/Mouth : No sore throat, No Rhinorrhea Eyes: No Eye Pain, No Swelling, No Redness Cardiovascular : No Chest Pain, No SOB, No Dyspnea on Exertion, No Orthopnea, No Edema, No Palpitations Respiratory : No Cough, No Sputum, No Wheezing Gastrointestinal : No Nausea, No Vomiting, No Diarrhea, No Constipation, + abdominal Pain, No Hematochezia, No Melena Genitourinary : No Dysuria, No Urinary Frequency, No Hematuria, +Unable to void, Musculoskeletal : No joint pain, No Myalgias, No Joint Swelling Skin : No Skin Lesions, No rash Neuro : No Weakness, No Numbness, No Dizziness, No Headache Psych : No Anxiety/Panic, No Depression All other systems reviewed and are negative Yes all other systems are reviewed and are negative [facility] Past Medical History Attestation statement: The following information was validated with the patient. Source: old records reviewed and nursing notes reviewed Medical History Adenocarcinoma of cardio-esophageal junction (~2019) Anxiety Benign essential hypertension Constipation Depression Diabetes type 2, uncontrolled HLD (hyperlipidemia) Keratotic lesion FDC (current) use of insulin Port-A-Cath in place Suprapubic catheter Vitamin D deficiency Surgical History History of atherectomy (~2018) History of esophagogastroduodenoscopy History of left below knee amputation (~2018) Family History Family History Father Diabetes Hypertension Mother No problems noted. Social History Social History Household Members: Family Housing: House Alcohol intake: never Patient Tobacco Use Status: Never used Tobacco Smoked in Last 30 Days: No e-Cigarette/Vaping Use: Never Used Second Hand Smoke Exposure: Yes Use of substances other than those prescribed or required for medical reasons: No Advance Directives: Yes Advance Directives on File: Yes Advance Directives Date on File: 02/03/22 service: No Current occupational status: retired and disabled Cognitive needs: No (cane/wheelchair) Hearing needs: No Vision needs: Yes (glasses) Physical Exam ED Vital Signs: Vital Signs - 24 hr 03/26/23 21:43 03/26/23 22:30 Temperature 98.1 F 98.3 F Pulse Rate 140 H 102 H Respiratory Rate 22 H 16 Blood Pressure 204/122 H 147/78 H Pulse Oximetry 99 95 Oxygen Delivery Method Room Air Room Air BMI result Body Mass Index 21.3 Initial blood pressure hypertension likely secondary to severe pain Appearance: Alert.? Oriented X3.? No acute distress.? Head: Normocephalic, atraumatic, no step-offs or deformities Eyes: Pupils equal, round and reactive to light.? ENT: Pharynx normal.? Neck: Normal inspection.? Neck supple.? CVS: Normal heart rate and rhythm.? Pulses normal.? Respiratory: No respiratory distress.? Breath sounds normal.? Abdomen: Soft and nontender.? Skin: Skin warm and dry.? Normal skin color.? Normal skin turgor.? Extremities: No lower extremity edema.? No calf ttp. 5/5 strength to bilateral upper and lower extremities Neuro: Oriented X 3.? No motor deficit.? No sensory deficit. CN 2-12 intact Course Reevaluation(s) Reevaluation #1: I did place an 18 gauge Guerrero catheter and cloudy urine currently draining up approximately a 1000 cc of urine, foul smelling with sediment. There is walter rns for UTI. Will order ceftriaxone at this time. Time: 22:20 Reevaluation #2: CBC with leukocytosis and a normocytic anemia, normocytic anemia peers to be around patient's baseline. Chemistry with no acute electrolyte abnormalities requiring intervention however patient is noted to have an elevated lactic acid 2.9. UA with infection, patient has a history of Pseudomonas in urine will cover with ceftriaxone as patient has responded to this medication well in the past. Also giving fluids for hydration and to help bring down lactic acid. Patient is feeling much better. Discussed case with hospitalist who will admit patient. CT of the abdomen pelvis is pending. Time: 23:49 Medications Administered Generic Name Dose Route Start Last Admin Trade Name Freq PRN Reason Stop Dose Admin Sodium Chloride 1,000 mls @ 999 mls/hr 03/26/23 23:15 03/26/23 23:09 Ns IV 03/27/23 00:15 999 mls/hr .Q1H1M COURTNEY Administration Sodium Chloride 1,000 mls @ 999 mls/hr 03/26/23 23:15 03/26/23 23:09 Ns IV 03/27/23 00:15 999 mls/hr .Q1H1M COURTNEY Administration Discontinued Medications Generic Name Dose Route Start Last Admin Trade Name Corinne PRN Reason Stop Dose Admin Ceftriaxone Sodium 1 gm/ 50 mls @ 100 mls/hr 03/26/23 22:20 03/26/23 23:13 Sodium Chloride IV 03/26/23 22:49 Infused ONCE ONE Infusion Morphine Sulfate 4 mg 03/26/23 21:41 03/26/23 22:06 Morphine Sulfate 4 Mg/Ml Cartridge IVPUSH 03/26/23 21:42 4 mg ONCE ONE Administration Protocol Medical Decision Making Medical Decision Making [facility] Narrative: 2199 72-year-old male presents with urge to void, lower abdominal pain severe x1 day and foul-smelling urine for the past 2 days. Has a Guerrero catheter in place that is not draining. Physical exam patient extremely uncomfortable and severe pain lower abdominal tenderness to palpation. Concerns for possible UTI versus cystitis versus obstructing uropathy versus clot in Guerrero catheterization. No signs of acute abdomen. Plan labs, imaging, blood cultures, lactic acid, UA, Guerrero catheter check, bladder scan, CT of the abdomen and pelvis Differential Diagnosis Differential Diagnoses: The differential diagnosis associated with the presentation includes Concerns for possible UTI versus cystitis versus obstructing uropathy versus clot in Guerrero catheterization. No signs of acute abdomen. Admission/Observation Consideration of admission/observation: Escalation of care including admission/observation considered Likely hospital admission Consult Healthcare Provider Management of the patient was discussed with: Hospitalist Lab Data [facility] Lab Attestation statement: I reviewed the patient's lab results. 03/26/23 22:09 03/26/23 22:09 Labs: Lab Results 03/26/23 03/26/23 03/26/23 Range/Units 22:08 22:09 22:09 WBC 13.3 H (4.8-10.8) X10*3/uL RBC 4.46 L (4.60-5.80) X10*6/uL Hgb 12.8 L (14.0-18.0) g/dl Hct 39.2 L (42.0-52.0) % MCV 87.9 (80.0-98.0) fL MCH 28.7 (27.0-33.0) pg MCHC 32.7 (31.0-36.0) g/dl RDW 14.9 (11.0-16.0) % Plt Count 427 H D (160-400) X10*3/uL MPV 10.1 (9.4-12.4) fL Immature Gran % (Auto) 0.5 H (0.0-0.4) % Neut % (Auto) 53.9 (45-73) % Lymph % (Auto) 35.2 (20-40) % Graves % (Auto) 9.0 (2-11) % Eos % (Auto) 1.1 (0-4) % Baso % (Auto) 0.3 (0-2) % Lymph # (Auto) 4.7 (1.2-4.9) X10*3/uL Graves # (Auto) 1.2 (0.1-1.2) X10*3/uL Eos # (Auto) 0.1 (0.0-0.4) X10*3/uL Baso # (Auto) 0.0 (0.0-0.2) X10*3/uL Abs Immat Gran (auto) 0.07 H (0.00-0.03) X10*3/uL Absolute Neuts (auto) 7.2 (2.0-8.3) x10*3/uL Absolute Nucleated RBC 0.000 (0.0-0.012) X10*3/uL Nucleated RBC % (auto) 0.0 (0.0-0.2) /100WBC Sodium 139 (135-145) mmol/L Potassium 3.4 (3.3-5.1) mmol/L Chloride 103 (96-108) mmol/L Carbon Dioxide 24 (22-29) mmol/L Anion Gap 15 (12-20) BUN 13 (9-16) mg/dL Creatinine 1.05 (0.5-1.4) mg/dL Estim Creat Clear Calc 58.7 Estimated GFR > 60 Random Glucose 315 H (60-115) mg/dL Lactic Acid 2.9 H* (0.5-2.0) mmol/L Calcium 9.0 (8.4-10.2) mg/dL Magnesium 1.9 (1.6-2.6) mg/dL Total Bilirubin 0.5 (0.0-1.0) mg/dL AST 24 (5-37) U/L ALT 20 (0-40) U/L Alkaline Phosphatase 281 H (39-117) U/L Troponin I High Sens (<3.5-35.0) ng/L Total Protein 7.6 (6.5-8.0) g/dL Albumin 4.1 (3.5-5.0) g/dL Lipase 6 L (8-78) U/L Urine Color Urine Appearance Urine pH (5.0-9.0) Ur Specific Henning (1.005-1.025) Urine Protein (Neg-Trace) mg/dL Urine Glucose (UA) (Negative) mg/dL Urine Ketones (Negative) mg/dL Urine Blood (Negative) Urine Nitrite (Negative) Ur Leukocyte Esterase (Negative) Urine RBC (0-2) /HPF Urine WBC (0-5) /HPF Ur Squamous Epith Cells (0-2) /HPF Urine Bacteria (None Seen) Hyaline Casts (0-2) /LPF COVID-19 ([facility]UAN CARLOS) COVID-19 Clin Com 03/26/23 03/26/23 03/26/23 Range/Units 22:11 22:12 22:18 WBC (4.8-10.8) X10*3/uL RBC (4.60-5.80) X10*6/uL Hgb (14.0-18.0) g/dl Hct (42.0-52.0) % MCV (80.0-98.0) fL MCH (27.0-33.0) pg MCHC (31.0-36.0) g/dl RDW (11.0-16.0) % Plt Count (160-400) X10*3/uL MPV (9.4-12.4) fL Immature Gran % (Auto) (0.0-0.4) % Neut % (Auto) (45-73) % Lymph % (Auto) (20-40) % Graves % (Auto) (2-11) % Eos % (Auto) (0-4) % Baso % (Auto) (0-2) % Lymph # (Auto) (1.2-4.9) X10*3/uL Graves # (Auto) (0.1-1.2) X10*3/uL Eos # (Auto) (0.0-0.4) X10*3/uL Baso # (Auto) (0.0-0.2) X10*3/uL Abs Immat Gran (auto) (0.00-0.03) X10*3/uL Absolute Neuts (auto) (2.0-8.3) x10*3/uL Absolute Nucleated RBC (0.0-0.012) X10*3/uL Nucleated RBC % (auto) (0.0-0.2) /100WBC Sodium (135-145) mmol/L Potassium (3.3-5.1) mmol/L Chloride (96-108) mmol/L Carbon Dioxide (22-29) mmol/L Anion Gap (12-20) BUN (9-16) mg/dL Creatinine (0.5-1.4) mg/dL Estim Creat Clear Calc Estimated GFR Random Glucose (60-115) mg/dL Lactic Acid (0.5-2.0) mmol/L Calcium (8.4-10.2) mg/dL Magnesium (1.6-2.6) mg/dL Total Bilirubin (0.0-1.0) mg/dL AST (5-37) U/L ALT (0-40) U/L Alkaline Phosphatase (39-117) U/L Troponin I High Sens 8.0 (<3.5-35.0) ng/L Total Protein (6.5-8.0) g/dL Albumin (3.5-5.0) g/dL Lipase (8-78) U/L Urine Color Yellow Urine Appearance Cloudy Urine pH 8.0 (5.0-9.0) Ur Specific Henning 1.015 (1.005-1.025) Urine Protein 100 (2+) H (Neg-Trace) mg/dL Urine Glucose (UA) >=1000 H (Negative) mg/dL Urine Ketones Negative (Negative) mg/dL Urine Blood Trace H (Negative) Urine Nitrite Negative (Negative) Ur Leukocyte Esterase Moderate (2+) H (Negative) Urine RBC 6-10 H (0-2) /HPF Urine WBC >50 H (0-5) /HPF Ur Squamous Epith Cells 0-2 (0-2) /HPF Urine Bacteria 4+ (None Seen) Hyaline Casts 0-2 (0-2) /LPF COVID-19 ([facility]UAN CARLOS) Cancelled COVID-19 Clin Com Cancelled Independent Interpretation I performed an independent interpretation of an: CT Scan Radiology Impression Discussion of test interpretation with radiology: I have reviewed the radiologist's reading. External Record Review External record reviewed: Inpatient record, Office record, Outpatient record, Prior outpatient labs, Prior outpatient radiology, Primary care record and Outside ED record Core Measures AMI core measures followed: Yes Measure exclusions: not indicated Critical Care Time Critical Care Time Critical Care Time: No Discharge Plan Discharge Clinical Impression: Acute UTI, Acidosis, lactic, Abdominal pain Patient Disposition: Admitted As Inpatient
[2023-03-26] MEDS: Morphine Sulfate 4 MG/ML CARTRIDGE IVPUSH (22:06)
[2023-03-26 22:24] LABS: MANUAL DIFF FLAG NO
[2023-03-26 22:25] LABS: Basophils Percent Auto 0.3 % (0-2); Eosinophils Absolute Auto 0.1 X10*3/uL (0.0-0.4); Eosinophils Percent Auto 1.1 % (0-4); Hematocrit 39.2 % (42.0-52.0); Hemoglobin 12.8 g/dl (14.0-18.0); Imm Gran Abs Auto 0.07 X10*3/uL (0.00-0.03); Imm Gran Pct Auto 0.5 % (0.0-0.4); Lymphocytes Absolute Auto 4.7 X10*3/uL (1.2-4.9); Lymphocytes Percent Auto 35.2 % (20-40); Mean Corpuscular HGB Conc 32.7 g/dl (31.0-36.0); Mean Corpuscular Hemoglobin 28.7 pg (27.0-33.0); Mean Corpuscular Volume 87.9 fL (80.0-98.0); Mean Platelet Volume 10.1 fL (9.4-12.4); Monocytes Absolute Auto 1.2 X10*3/uL (0.1-1.2); Neutrophils Absolute Auto 7.2 x10*3/uL (2.0-8.3); Neutrophils Percent Auto 53.9 % (45-73); Platelet Count 427 X10*3/uL (160-400); Red Blood Count 4.46 X10*6/uL (4.60-5.80); Red Cell Distribution Width 14.9 % (11.0-16.0); White Blood Count 13.3 X10*3/uL (4.8-10.8)
[2023-03-26 22:28] LABS: Appearance Urine Cloudy; Color Urine Yellow; Glucose Urine UA >=1000 mg/dL (Negative); Leukocyte Esterase Urine Moderate (2+) (Negative); Nitrite Urine Negative (Negative); Specific Gravity - Urine 1.015 (1.005-1.025); UMIC TRIGGER UACC YES; Urine Blood Trace (Negative); Urine Ketones Negative (Negative); Urine Protein 100 (2+) mg/dL (Neg-Trace)
[2023-03-26 22:30] VITALS: BP 147/78; PULSE 102; RESP 16; TEMP 36.8; O2SAT 95
[2023-03-26 22:33] LABS: Bacteria Urine 4+ (None Seen); Hyaline Casts Urine 0-2 /LPF (0-2); Squamous Epithelial Cell Urine 0-2 /HPF (0-2); UACC Culture Trigger YES; WBC Urine >50 /HPF (0-5)
[2023-03-26 22:39] LABS: Lactic Acid 2.9 mmol/L (0.5-2.0)
[2023-03-26 22:40] LABS: Alanine Aminotransferase 20 U/L (0-40); Albumin Level 4.1 g/dL (3.5-5.0); Alkaline Phosphatase 281 U/L (39-117); Anion Gap 15 (12-20); Aspartate Amino Transferase 24 U/L (5-37); Bilirubin Total 0.5 mg/dL (0.0-1.0); Blood Urea Nitrogen 13 mg/dL (9-16); Carbon Dioxide 24 mmol/L (22-29); Chloride 103 mmol/L (96-108); Creatinine Clr Calc Pharmacy 58.7; Estimated Glomerular Filt Rate > 60; Glucose Random 315 mg/dL (60-115); Lipase 6 U/L (8-78); Magnesium 1.9 mg/dL (1.6-2.6); Potassium 3.4 mmol/L (3.3-5.1); Sodium 139 mmol/L (135-145); Total Protein 7.6 g/dL (6.5-8.0)
[2023-03-26] MEDS: cefTRIAXone sodium 1 GM in 0.9 % Sodium Chloride 50 ML IV (22:46)
--- NOTE | 2023-03-26 22:51 | PC.NURSE ---
Pt aox4 restless at the bedside. Reporting urinary pain 10/10. 18G wolfe in place, not draining urine. 647cc of urine noted in bladder scanner. Wolfe removed and replaced with a new 18F urinary catheter placed by provider. Pt tolerated well. Cloudy yellow urine with malodor noted in urine collection bag. Pt reports immediate relief and no pain 0/10. IV port accessed. Blood drawn and sent. Pt medicated as ordered and tolerated well.
[2023-03-26] MEDS: 0.9 % Sodium Chloride 1,000 ML 999 ML IV ×2 (23:09)
--- NOTE | 2023-03-26 23:48 | PM.IMHP ---
History of Present Illness Date of Service: 03/26/23 Chief Complaint: urinary retention, suprapubic pain 72-year-old male with past medical history of diabetes, HLD, suprapubic catheter in place, history of adenocarcinoma of the esophagus, anxiety depression, presents to the hospital complaining that his urinary catheter is not emptying, he is developing suprapubic pain. Patient reports that this started 2 days ago, he noticed significant sediment in his urine, 10 when he woke up on day of presentation, he had minimal urine in his Guerrero catheterization, as well as pain that was worsening throughout the day therefore decided to come to the hospital. Patient denies any fever, no chills, no chest pain, no shortness of breath, no lower extremity edema, no headache or change in vision, no numbness weakness or tingling. On arrival to the ED patient found to have tachycardia of 140, with elevated blood pressure of 204/122, after pain was controlled his blood pressure spontaneously improved to 147/78 Labs otherwise are significant for WBC count 13.3, hemoglobin of 12.8, medic of 39.2, lactic acid of 2.9, urine that is positive for leukocyte Estrace, WBC, and bacteria his Guerrero catheter was replaced in the ED with a new Guerrero catheter he had significant relief. patient started on IV antibiotics and will be admitted for further management Review of Systems Review of Systems: Yes all other systems are reviewed and are negative [facility] Medical History Adenocarcinoma of cardio-esophageal junction (~2019) Anxiety Benign essential hypertension Constipation Depression Diabetes type 2, uncontrolled HLD (hyperlipidemia) Keratotic lesion intermediate frame tender (current) use of insulin Port-A-Cath in place Suprapubic catheter Vitamin D deficiency Family History Father Diabetes Hypertension Mother No problems noted. Surgical History History of atherectomy (~2018) History of esophagogastroduodenoscopy History of left below knee amputation (~2019) Social History Household Members: Family Housing: House Do you presently have visiting nurse or other home services: No Alcohol intake: never Patient Tobacco Use Status: Never used Tobacco Smoked in Last 30 Days: No e-Cigarette/Vaping Use: Never Used Patient Interested in Nicotine Replacement: No Patient Given Instructions on How to Stop Smoking: No Second Hand Smoke Exposure: No Use of substances other than those prescribed or required for medical reasons: No Currently Displaying Signs/Symptoms of Drug Intoxication Withdrawal: No Have you been hit, kicked, punched, or otherwise hurt by someone within the past year? If so, by whom?: No Do you feel safe in your current relationship?: No Is there a partner from a previous relationship who is making you feel unsafe now?: No Are you made to feel afraid or neglected: No Advance Directives: Yes Advance Directives on File: Yes Advance Directives Date on File: 02/03/22 Do you have thoughts of harming others: None Do you have a plan to hurt others: No Plan Recently lost weight without trying: No How much weight loss: Not applicable Eating poorly because of decreased appetite: No Nutrition screen score: 0 Nutrition Risks: No Nutritional Risk Poor oral hygiene: No service: No Current occupational status: retired and disabled Cognitive needs: No (cane/wheelchair) Hearing needs: No Vision needs: Yes (glasses) Meds Allergies Allergy/AdvReac Type Severity Reaction Status Date / Time No Known Allergies Allergy Verified 03/15/23 16:10 Active Medications: Current Medications Acetaminophen (Acetaminophen 325 Mg Tablet) 650 mg PO Q6H PRN PRN Reason: Pain, Mild (Pain Scale 1-3) Docusate Sodium (Docusate Sodium 100 Mg Capsule) 100 mg PO DAILY PRN PRN Reason: Constipation Sodium Chloride (Ns) 1,000 mls @ 999 mls/hr IV .Q1H1M [facility] Stop: 03/27/23 00:15 Last Admin: 03/26/23 23:09 Dose: 999 mls/hr Sodium Chloride (Ns) 1,000 mls @ 999 mls/hr IV .Q1H1M [facility]NEY Stop: 03/27/23 00:15 Last Admin: 03/26/23 23:09 Dose: 999 mls/hr Cefepime HCl 2 gm/ Sodium (Chloride) 50 mls @ 100 mls/hr IV Q8H [facility] Lactated Ringer's (Lr) 1,000 mls @ 100 mls/hr IVCONT .Q10H [facility] Ondansetron HCl (Ondansetron Hcl 4 Mg/2 Ml Vial) 4 mg IVPUSH Q8H PRN PRN Reason: Nausea and Vomiting Oxycodone HCl (Oxycodone Hcl Immed Release 5 Mg Tablet) 5 mg PO Q6H PRN PRN Reason: Pain, Severe (Pain Scale 7-10) Sodium Chloride (0.9 % Sodium Chloride Flush 3 Ml Syringe) 3 ml IVFLUSH QSHIFT [facility] Home Medications Medication Instructions Recorded Confirmed Last Taken Type blood sugar diagnostic (FreeStyle 06/19/22 03/15/23 Unknown History Lite Strips) cholecalciferol (vitamin D3) 25 1 cap PO QAM 06/19/22 03/27/23 Unknown History mcg (1,000 unit) capsule (Vitamin D3) diphenhydramine HCl 12.5 mg/5 mL See Rx Instructions .Route .COMPLEX 06/19/22 03/27/23 Unknown History oral liquid (Allergy Relief (diphenhydramine)) glucagon 0.5 mg/0.1 mL 0.1 ml subcut DAILY PRN 06/19/22 03/27/23 Unknown History subcutaneous auto-injector (Gvoke Hypoglycemia HypoPen 2-Pack) metoprolol succinate 25 mg 0.5 tab PO QPM 06/19/22 03/27/23 Unknown History tablet,extended release 24 hr pen needle, diabetic 32 gauge x 06/19/22 03/15/23 Unknown History (Pentips) metformin 500 mg tablet,extended 1,000 mg PO BID 09/08/22 03/27/23 Unknown History release 24 hr Physical Exam Vital Signs and Narrative: Vital Signs: Last Vital Signs Temp 98.3 F 03/26/23 22:30 Pulse 102 H 03/26/23 22:30 Resp 16 03/26/23 22:30 BP 147/78 H 03/26/23 22:30 Pulse Ox 95 03/26/23 22:30 O2 Del Method Room Air 03/26/23 22:30 BMI result Body Mass Index 21.3 Const: General: cooperative and no acute distress Orientation/consciousness: patient oriented x3 Eyes: General: appearance normal, both eyes and all related structures Resp: Effort & Inspection: normal respiratory effort Auscultation: clear to auscultation bilaterally Cardio: Rate: regular rate Rhythm: regular rhythm GI: Palpation (GI): Soft to palpation Auscultation: normal bowel sounds : Other: new catheter in place, draining, with some sediment Skin: General skin exam: no rashes or lesions noted Neuro: General: patient oriented x3 Cognition (Neuro): normal cognition Extrem: General: Yes normal to inspection and Yes no pedal edema Results Labs 03/26/23 22:09 03/26/23 22:09 Labs: Laboratory Results - last 24 hr 03/26/23 03/26/23 03/26/23 22:08 22:09 22:09 MCV 87.9 MCH 28.7 MCHC 32.7 RDW 14.9 Plt Count 427 H D MPV 10.1 Immature Gran % (Auto) 0.5 H Neut % (Auto) 53.9 Lymph % (Auto) 35.2 [place] % (Auto) 9.0 Eos % (Auto) 1.1 Baso % (Auto) 0.3 Lymph # (Auto) 4.7 [place]christ # (Auto) 1.2 Eos # (Auto) 0.1 Baso # (Auto) 0.0 Abs Immat Gran (auto) 0.07 H Absolute Neuts (auto) 7.2 Absolute Nucleated RBC 0.000 Nucleated RBC % (auto) 0.0 Anion Gap 15 Estim Creat Clear Calc 58.7 Estimated GFR > 60 Random Glucose 315 H Lactic Acid 2.9 H* Calcium 9.0 Magnesium 1.9 Total Bilirubin 0.5 AST 24 ALT 20 Alkaline Phosphatase 281 H Troponin I High Sens Total Protein 7.6 Albumin 4.1 Lipase 6 L Urine Color Urine Appearance Urine pH Ur Specific [place] Urine Protein Urine Glucose (UA) Urine Ketones Urine Blood Urine Nitrite Ur Leukocyte Esterase Urine RBC Urine WBC Ur Squamous Epith Cells Urine Bacteria Hyaline Casts COVID-19 (JUAN CARLOS) COVID-19 Clin Com 03/26/23 03/26/23 03/26/23 22:11 22:12 22:18 MCV MCH MCHC RDW Plt Count MPV Immature Gran % (Auto) Neut % (Auto) Lymph % (Auto) [place] % (Auto) Eos % (Auto) Baso % (Auto) Lymph # (Auto) [place] # (Auto) Eos # (Auto) Baso # (Auto) Abs Immat Gran (auto) Absolute Neuts (auto) Absolute Nucleated RBC Nucleated RBC % (auto) Anion Gap Estim Creat Clear Calc Estimated GFR Random Glucose Lactic Acid Calcium Magnesium Total Bilirubin AST ALT Alkaline Phosphatase Troponin I High Sens 8.0 Total Protein Albumin Lipase Urine Color Yellow Urine Appearance Cloudy Urine pH 8.0 Ur Specific [place] 1.015 Urine Protein 100 (2+) H Urine Glucose (UA) >=1000 H Urine Ketones Negative Urine Blood Trace H Urine Nitrite Negative Ur Leukocyte Esterase Moderate (2+) H Urine RBC 6-10 H Urine WBC >50 H Ur Squamous Epith Cells 0-2 Urine Bacteria 4+ Hyaline Casts 0-2 COVID-19 (JUAN CARLOS) Cancelled COVID-19 Clin Com Cancelled Assessment and Plan (1) Sepsis: Qualifiers: Sepsis type: sepsis due to unspecified organism Sepsis acute organ dysfunction status: without acute organ dysfunction Qualified Code(s): A41.9 - Sepsis, unspecified organism Status: Acute (2) Acute UTI: Status: Acute Plan 72-year-old male with past medical history of suprapubic catheter in place presents to the hospital with complaints of urinary retention and pain for found to have # sepsis - secondary to urinary tract infection - has leukocytosis, tachycardia, as well as elevated lactic acid - no end-organ damage - has history of pseudomonal infection - will treat with IV antibiotics - follow cultures # acute UTI - significantly positive UA, in the setting of suprapubic catheter - history of pseudomonal infection - will treat with IV antibiotics - follow cultures # diabetes - will continue his home insulin - hold oral antihyperglycemics - will add low-dose any scale insulin - diabetic diet # hyperlipidemia - continue statin # anxiety - continue mood stabilizers DVT prophylaxis: Lovenox given patient's need for IV antibiotics patient will require a minimum 2 nights inpatient hospital stay for further management and monitoring Time Spent With Patient Time: Total time managing care of this patient today ____ minutes. Quality Stroke Does the patient have a stroke diagnosis?: No VTE Prior VTE?: No VTE Risk Level:: Medical - moderate - high VTE Device Contraindication: Treatment Not Indicated VTE Drug Contraindication: N/A - Med Ordered
[2023-03-26] MEDS: cefEPime HCl 2 GM in 0.9 % Sodium Chloride 50 ML IV (23:50)
[2023-03-26] MEDS: 0.9 % Sodium Chloride Flush 3 ML SYRINGE IVFLUSH (23:51)
[2023-03-26 23:56] VITALS: BP 157/82; PULSE 99; RESP 16; TEMP 36.8; O2SAT 97
--- NOTE | 2023-03-26 23:57 | MHC.EDTECH ---
0000 rounding done ,vitals sign taken ,750 ml urine empty from Guerrero bag ,patient was incontinent of urine ,care given ,patient daughter at bedside .
--- NOTE | 2023-03-27 00:03 | MHC.EDTECH ---
PATIENT HAD A DIET CAL TROY TO DRINK .
[2023-03-27 00:21] LABS: Reflex Lactate? Lactic Acid Added
[2023-03-27 01:00] LABS: ~Lactic Acid-LAB USE ONLY 1.4 mmol/L (0.5-2.0)
--- NOTE | 2023-03-27 01:06 | PC.NURSE ---
Nurse to nurse report given to KAREN Sequeira. Pt being transferred to room 473 and aware of plan.
[2023-03-27] MEDS: Lactated Ringers 1,000 ML 100 ML IVCONT (01:56)
[2023-03-27 02:20] VITALS: BMI 22.5
[2023-03-27 03:07] LABS: Glucose, Whole Blood 222 mg/dL (60-115)
[2023-03-27 03:46] VITALS: BP 146/77; PULSE 96; RESP 17; TEMP 37.1; O2SAT 96
[2023-03-27 05:27] LABS: MANUAL DIFF FLAG NO
[2023-03-27 05:32] LABS: Basophils Percent Auto 0.2 % (0-2); Eosinophils Absolute Auto 0.1 X10*3/uL (0.0-0.4); Eosinophils Percent Auto 0.8 % (0-4); Hematocrit 34.3 % (42.0-52.0); Hemoglobin 11.2 g/dl (14.0-18.0); Imm Gran Abs Auto 0.04 X10*3/uL (0.00-0.03); Imm Gran Pct Auto 0.4 % (0.0-0.4); Lymphocytes Absolute Auto 2.6 X10*3/uL (1.2-4.9); Lymphocytes Percent Auto 22.9 % (20-40); Mean Corpuscular HGB Conc 32.7 g/dl (31.0-36.0); Mean Corpuscular Hemoglobin 29.2 pg (27.0-33.0); Mean Corpuscular Volume 89.6 fL (80.0-98.0); Mean Platelet Volume 10.1 fL (9.4-12.4); Neutrophils Absolute Auto 7.5 x10*3/uL (2.0-8.3); Neutrophils Percent Auto 66.7 % (45-73); Platelet Count 350 X10*3/uL (160-400); Red Blood Count 3.83 X10*6/uL (4.60-5.80); Red Cell Distribution Width 14.9 % (11.0-16.0); White Blood Count 11.2 X10*3/uL (4.8-10.8)
[2023-03-27 05:48] LABS: Anion Gap 13 (12-20); Blood Urea Nitrogen 9 mg/dL (9-16); Calcium 8.2 mg/dL (8.4-10.2); Carbon Dioxide 23 mmol/L (22-29); Chloride 108 mmol/L (96-108); Creatinine Clr Calc Pharmacy 84.7; Estimated Glomerular Filt Rate > 60; Glucose Random 220 mg/dL (60-115); Potassium 3.8 mmol/L (3.3-5.1); Sodium 140 mmol/L (135-145)
[2023-03-27 07:27] VITALS: BP 141/79; PULSE 87; RESP 18; TEMP 36.6; O2SAT 97
[2023-03-27 07:36] LABS: Glucose, Whole Blood 198 mg/dL (60-115)
[2023-03-27] MEDS: Cholecalciferol (Vitamin D3) 25 MCG TABLET PO (07:53)
[2023-03-27] MEDS: DULoxetine HCl 20 MG CAPSULE.DR PO ×2 (07:53→21:07)
[2023-03-27] MEDS: Finasteride 5 MG TABLET PO (07:53)
[2023-03-27] MEDS: Ferrous Sulfate 324 MG TABLET.DR PO (07:53)
[2023-03-27] MEDS: Omeprazole 20 MG CAPSULE.DR PO (07:53)
[2023-03-27] MEDS: Insulin Lispro 100 UNIT/ML 3 ML VIAL SUBCUT ×4 (07:53→21:07)
[2023-03-27] MEDS: 0.9 % Sodium Chloride Flush 3 ML SYRINGE IVFLUSH (07:54)
[2023-03-27] MEDS: cefEPime HCl 2 GM in 0.9 % Sodium Chloride 50 ML IV ×3 (07:54→23:36)
--- NOTE | 2023-03-27 09:02 | PHA.MEDREC ---
Pharmacy Consult ? Medication Reconciliation Pharmacy has completed the medication reconciliation. spoke with patient through an rate supervisor. He did not know all of the details of his medications so I called his daughter who helps him. They were both able to confirm his insulin dose of 30 units in the morning and 22 units at night. The daughter said he only takes gabapentin once as needed, lorazepam twice daily (one in the morning and one at night), and zofran as needed. The patient was asking about the lorazepam when I spoke with him and the daughter says it's because he gets more anxious during hospital visits.
--- NOTE | 2023-03-27 10:18 | HO.PM.IMPN ---
Subjective Subjective Date of Service: 03/27/23 Interval History: This history was taken in Malay from the patient. No fever/chills Guerrero replaced in ED No suprapubic pain Review of Systems Review of Systems: Yes all other systems are reviewed and are negative Physical Exam Vital Signs: Vital Signs: Last Vital Signs Temp 98 F 03/27/23 07:27 Pulse 87 03/27/23 07:27 Resp 18 03/27/23 07:27 BP 141/79 H 03/27/23 07:27 Pulse Ox 97 03/27/23 07:27 O2 Del Method Room Air 03/27/23 07:27 BMI result Body Mass Index 22.5 Gen: in no acute distress HEENT: sclera anicteric, moist mucus membranes Neck: supple, R chest wall port without signs of infection Lungs: clear to auscultation bilaterally Heart: regular rate and rhythm, no murmurs Abd: soft, non-tender, non-distended : Guerrero draining clear urine Ext: no edema Skin: warm/well-perfused Neuro: alert and oriented x3, no focal findings Psych: appropriate affect Objective Data Active Medications Acetaminophen (Acetaminophen 325 Mg Tablet) 650 mg PO Q6H PRN PRN Reason: Pain, Mild (Pain Scale 1-3) Atorvastatin Calcium (Atorvastatin Calcium 40 Mg Tablet) 40 mg PO BEDTIME [facility] Last Admin: 03/27/23 04:37 Dose: Not Given Documented By: JAMILA Non-Admin Reason: start tonight per Docusate Sodium (Docusate Sodium 100 Mg Capsule) 100 mg PO DAILY PRN PRN Reason: Constipation Docusate Sodium (Docusate Sodium 100 Mg Capsule) 200 mg PO BEDTIME PRN PRN Reason: constipation Duloxetine HCl (Duloxetine Hcl 20 Mg Capsule.) 20 mg PO BID [facility] Last Admin: 03/27/23 07:53 Dose: 20 mg Documented By: FABIANA Ferrous Sulfate (Ferrous Sulfate 324 Mg Tablet.) 324 mg PO DAILY [facility] Last Admin: 03/27/23 07:53 Dose: 324 mg Documented By: FABIANA Finasteride (Finasteride 5 Mg Tablet) 5 mg PO DAILY [facility] Last Admin: 03/27/23 07:53 Dose: 5 mg Documented By: FABIANA Gabapentin (Gabapentin 100 Mg Capsule) 200 mg PO BEDTIME [facility] Glucose (Glucose Gel 15 Gm Gel..Gram.) 15 gm PO Q15M PRN; Protocol PRN Reason: per Hypoglycemia Standing Ord. Cefepime HCl 2 gm/ Sodium (Chloride) 50 mls @ 100 mls/hr IV Q8H [facility] Last Infusion: 03/27/23 08:38 Dose: 0 mls/hr Documented By: FABIANA Lactated Ringer's (Lr) 1,000 mls @ 100 mls/hr IVCONT .Q10H [facility] Last Infusion: 03/27/23 08:39 Dose: 100 mls/hr Documented By: FABIANA Dextrose (D10) 250 mls @ 750 mls/hr IV Q15M PRN; Protocol PRN Reason: per Hypoglycemia Standing Ord. Insulin Human Lispro (Insulin Lispro 100 Unit/Ml 3 Ml Vial) 0 unit SUBCUT QIDACHS [facility]; Protocol Last Admin: 03/27/23 07:53 Dose: 2 unit Documented By: FABIANA Lidocaine/Diphenhydr/Alum/Mg/Simeth (Mag&Al/Sim/Diphenhyd/Lidocaine 10 Ml Oral.Susp) 10 ml PO QID [facility] Lorazepam (Lorazepam 0.5 Mg Tablet) 0.5 mg PO TID PRN PRN Reason: anxiety Metoprolol Succinate (Metoprolol Succinate Er 12.5 Mg Halftab.Er.24h) 12.5 mg PO BEDTIME [facility]; Protocol Mirtazapine (Mirtazapine 30 Mg Tablet) 30 mg PO BEDTIME [facility] Omeprazole (Omeprazole 20 Mg Capsule.Dr) 20 mg PO DAILY [facility] Last Admin: 03/27/23 07:53 Dose: 20 mg Documented By: FABIANA Ondansetron HCl (Ondansetron Hcl 4 Mg/2 Ml Vial) 4 mg IVPUSH Q8H PRN PRN Reason: Nausea and Vomiting Oxycodone HCl (Oxycodone Hcl Immed Release 5 Mg Tablet) 5 mg PO Q6H PRN PRN Reason: Pain, Severe (Pain Scale 7-10) Pharmacy Consult (Consult Rx Perform Med Rec) 1 each MISCELLANE ONCE PRN PRN Reason: Consult order Sodium Chloride (0.9 % Sodium Chloride Flush 3 Ml Syringe) 3 ml IVFLUSH QSHIFT [facility] Last Admin: 03/27/23 07:54 Dose: 3 ml Documented By: FABIANA Tamsulosin HCl (Tamsulosin Hcl 0.4 Mg Capsule) 0.4 mg PO BEDTIME [facility] Tramadol HCl (Tramadol Hcl 50 Mg Tablet) 50 mg PO Q6H PRN PRN Reason: Pain, Moderate(Pain Scale 4-6) Vitamin D (Cholecalciferol (Vitamin D3) 25 Mcg Tablet) 25 mcg PO DAILY [facility] Last Admin: 03/27/23 07:53 Dose: 25 mcg Documented By: FABIANA Labs 03/27/23 05:18 03/27/23 05:18 Labs: Laboratory Results - last 24 hr 03/26/23 03/26/23 03/26/23 22:08 22:09 22:09 MCV 87.9 MCH 28.7 MCHC 32.7 RDW 14.9 Plt Count 427 H D MPV 10.1 Immature Gran % (Auto) 0.5 H Neut % (Auto) 53.9 Lymph % (Auto) 35.2 [place] % (Auto) 9.0 Eos % (Auto) 1.1 Baso % (Auto) 0.3 Lymph # (Auto) 4.7 [place] # (Auto) 1.2 Eos # (Auto) 0.1 Baso # (Auto) 0.0 Abs Immat Gran (auto) 0.07 H Absolute Neuts (auto) 7.2 Absolute Nucleated RBC 0.000 Nucleated RBC % (auto) 0.0 Anion Gap 15 Estim Creat Clear Calc 58.7 Estimated GFR > 60 POC Glucose Random Glucose 315 H Lactic Acid 2.9 H* Lactic Acid F/U @ 2Hr Calcium 9.0 Magnesium 1.9 Total Bilirubin 0.5 AST 24 ALT 20 Alkaline Phosphatase 281 H Troponin I High Sens Total Protein 7.6 Albumin 4.1 Lipase 6 L Urine Color Urine Appearance Urine pH Ur Specific [place] Urine Protein Urine Glucose (UA) Urine Ketones Urine Blood Urine Nitrite Ur Leukocyte Esterase Urine RBC Urine WBC Ur Squamous Epith Cells Urine Bacteria Hyaline Casts COVID-19 ([facility] CARLOS) COVID-19 Clin Com 03/26/23 03/26/23 03/26/23 22:11 22:12 22:18 MCV MCH MCHC RDW Plt Count MPV Immature Gran % (Auto) Neut % (Auto) Lymph % (Auto) [place] % (Auto) Eos % (Auto) Baso % (Auto) Lymph # (Auto) [place] # (Auto) Eos # (Auto) Baso # (Auto) Abs Immat Gran (auto) Absolute Neuts (auto) Absolute Nucleated RBC Nucleated RBC % (auto) Anion Gap Estim Creat Clear Calc Estimated GFR POC Glucose Random Glucose Lactic Acid Lactic Acid F/U @ 2Hr Calcium Magnesium Total Bilirubin AST ALT Alkaline Phosphatase Troponin I High Sens 8.0 Total Protein Albumin Lipase Urine Color Yellow Urine Appearance Cloudy Urine pH 8.0 Ur Specific [place] 1.015 Urine Protein 100 (2+) H Urine Glucose (UA) >=1000 H Urine Ketones Negative Urine Blood Trace H Urine Nitrite Negative Ur Leukocyte Esterase Moderate (2+) H Urine RBC 6-10 H Urine WBC >50 H Ur Squamous Epith Cells 0-2 Urine Bacteria 4+ Hyaline Casts 0-2 COVID-19 (JUAN CARLOS) Cancelled [employer]-19 [facility] Cancelled 03/27/23 03/27/23 03/27/23 00:44 01:59 05:18 MCV 89.6 MCH 29.2 MCHC 32.7 RDW 14.9 Plt Count 350 MPV 10.1 Immature Gran % (Auto) 0.4 Neut % (Auto) 66.7 Lymph % (Auto) 22.9 [place] % (Auto) 9.0 Eos % (Auto) 0.8 Baso % (Auto) 0.2 Lymph # (Auto) 2.6 [place] # (Auto) 1.0 Eos # (Auto) 0.1 Baso # (Auto) 0.0 Abs Immat Gran (auto) 0.04 H Absolute Neuts (auto) 7.5 Absolute Nucleated RBC 0.000 Nucleated RBC % (auto) 0.0 Anion Gap Estim Creat Clear Calc Estimated GFR POC Glucose 222 H Random Glucose Lactic Acid Lactic Acid F/U @ 2Hr 1.4 Calcium Magnesium Total Bilirubin AST ALT Alkaline Phosphatase Troponin I High Sens Total Protein Albumin Lipase Urine Color Urine Appearance Urine pH Ur Specific [place] Urine Protein Urine Glucose (UA) Urine Ketones Urine Blood Urine Nitrite Ur Leukocyte Esterase Urine RBC Urine WBC Ur Squamous Epith Cells Urine Bacteria Hyaline Casts COVID-19 ([facility]UAN CARLOS) COVID-19 [facility] [employer] 03/27/23 03/27/23 05:18 07:28 MCV MCH MCHC RDW Plt Count MPV Immature Gran % (Auto) Neut % (Auto) Lymph % (Auto) [place] % (Auto) Eos % (Auto) Baso % (Auto) Lymph # (Auto) [place] # (Auto) Eos # (Auto) Baso # (Auto) Abs Immat Gran (auto) Absolute Neuts (auto) Absolute Nucleated RBC Nucleated RBC % (auto) Anion Gap 13 Estim Creat Clear Calc 84.7 Estimated GFR > 60 POC Glucose 198 H Random Glucose 220 H Lactic Acid Lactic Acid F/U @ 2Hr Calcium 8.2 L D Magnesium Total Bilirubin AST ALT Alkaline Phosphatase Troponin I High Sens Total Protein Albumin Lipase Urine Color Urine Appearance Urine pH Ur Specific [place] Urine Protein Urine Glucose (UA) Urine Ketones Urine Blood Urine Nitrite Ur Leukocyte Esterase Urine RBC Urine WBC Ur Squamous Epith Cells Urine Bacteria Hyaline Casts COVID-19 (JUAN CARLOS) COVID-19 Clin Com Assessment and Plan (1) Acute UTI: Status: Acute (2) Sepsis: Status: Acute Plan d#2 72yo M with chronic Guerrero, DM2, HLD, adenoCA of esophagus on chemo, anxiety/depression presenting with blocked Guerrero + suprapubic pain admitted for severe sepsis due to complicated UTI # severe sepsis due to compliated UTI - lactate normalized, continue cefepime and follow BCx/UCx. Guerrero replaced. Hx pseudomonal UTI # DM2 - ron-dose lispro # HLD - statin # HTN - metoprolol # anxiety - duloxetine, lorazepam, mirtazapine # prostatism - finasteride, tamsulosin # VTE ppx: LMWH # dispo: anticipate eventually home In my clinical judgment, the patient requires continued inpatient hospitalization for the following reasons: IV ABX Time Spent With Patient Time: Total time managing care of this patient today __35__ minutes. Quality Stroke Does the patient have a stroke diagnosis?: No VTE Prior VTE?: No VTE Risk Level:: Medical - moderate - high VTE Device Contraindication: Treatment Not Indicated VTE Drug Contraindication: N/A - Med Ordered
[2023-03-27] MEDS: LORazepam 0.5 MG TABLET PO (11:06)
[2023-03-27] MEDS: Enoxaparin Sodium 40 MG/0.4 ML SYRINGE SUBCUT (11:06)
[2023-03-27] MEDS: Lactated Ringers 1,000 ML 50 ML IVCONT (11:08)
[2023-03-27 11:13] VITALS: BP 151/84; PULSE 94; RESP 20; TEMP 37; O2SAT 98
[2023-03-27 11:32] LABS: Glucose, Whole Blood 191 mg/dL (60-115)
[2023-03-27 15:33] VITALS: BP 154/86; PULSE 89; RESP 18; TEMP 36.7; O2SAT 97
--- NOTE | 2023-03-27 15:45 | MHC.CM.PN ---
PT REPORTS HE LIVES WITH HIS AND HIS DAUGHTER IS HIS MEDICAL DIRECTOR OCCUPATIONAL HEALTH HE REPORTS HIS DAUGHTER IS THERE EVERY DAY AND NIGHT HE SAYS HE HAS A WALKER AND W/C AT HOME VIJAY DANG IS PTS PCP HCP ON FILE HE IS LURDES JONES IMM DELIVERED DCP: HOME, RESUME MEDICAL DIRECTOR OCCUPATIONAL HEALTH SERVICES
[2023-03-27 15:57] LABS: Glucose, Whole Blood 266 mg/dL (60-115)
[2023-03-27] MEDS: Docusate Sodium 100 MG CAPSULE PO (16:11)
[2023-03-27] MEDS: Mag&Al/Sim/Diphenhyd/Lidocaine 10 ML ORAL.SUSP PO ×2 (17:28→21:06)
[2023-03-27 18:43] VITALS: BP 155/76; PULSE 92; RESP 17; TEMP 36.6; O2SAT 96
[2023-03-27 19:15] LABS: Glucose, Whole Blood 153 mg/dL (60-115)
[2023-03-27] MEDS: Metoprolol Succinate ER 12.5 MG HALFTAB.ER.24H PO (21:06)
[2023-03-27] MEDS: Mirtazapine 30 MG TABLET PO (21:06)
[2023-03-27] MEDS: Atorvastatin Calcium 40 MG TABLET PO (21:07)
[2023-03-27] MEDS: Gabapentin 100 MG CAPSULE 200 MG PO (21:07)
[2023-03-27] MEDS: Tamsulosin HCL 0.4 MG CAPSULE PO (21:07)
[2023-03-27 23:32] VITALS: BP 147/86; PULSE 86; RESP 17; TEMP 36.1; O2SAT 96
[2023-03-28 04:00] VITALS: BP 135/77; PULSE 77; RESP 20; TEMP 37.2; O2SAT 97
[2023-03-28 07:27] LABS: Glucose, Whole Blood 268 mg/dL (60-115)
[2023-03-28 07:33] VITALS: BP 141/76; PULSE 79; RESP 18; TEMP 36.4; O2SAT 96
[2023-03-28] MEDS: Insulin Lispro 100 UNIT/ML 3 ML VIAL SUBCUT ×4 (08:17→20:49)
[2023-03-28] MEDS: Mag&Al/Sim/Diphenhyd/Lidocaine 10 ML ORAL.SUSP PO ×4 (08:18→20:48)
[2023-03-28] MEDS: Finasteride 5 MG TABLET PO (08:18)
[2023-03-28] MEDS: Ferrous Sulfate 324 MG TABLET.DR PO (08:19)
[2023-03-28] MEDS: DULoxetine HCl 20 MG CAPSULE.DR PO ×2 (08:19→20:48)
[2023-03-28] MEDS: Cholecalciferol (Vitamin D3) 25 MCG TABLET PO (08:19)
[2023-03-28] MEDS: Omeprazole 20 MG CAPSULE.DR PO (08:23)
[2023-03-28] MEDS: cefEPime HCl 2 GM in 0.9 % Sodium Chloride 50 ML IV ×2 (08:25→16:32)
[2023-03-28] MEDS: 0.9 % Sodium Chloride Flush 3 ML SYRINGE IVFLUSH ×2 (08:33→16:36)
[2023-03-28] MEDS: LORazepam 0.5 MG TABLET PO ×2 (08:39→16:43)
--- NOTE | 2023-03-28 11:03 | P.PNIM_ITS ---
Subjective Subjective Date of Service: 03/28/23 Interval History: This history was taken in French from the patient. No fever/chills NO suprapubic pain Review of Systems Review of Systems: Yes all other systems are reviewed and are negative Physical Exam Vital Signs: Vital Signs: Last Vital Signs Temp 97.5 F 03/28/23 07:33 Pulse 79 03/28/23 07:33 Resp 18 03/28/23 07:33 BP 141/76 H 03/28/23 07:33 Pulse Ox 96 03/28/23 07:33 O2 Del Method Room Air 03/28/23 07:33 BMI result Body Mass Index 22.5 Gen: in no acute distress HEENT: sclera anicteric, moist mucus membranes Neck: supple, R chest wall port without signs of infection Lungs: clear to auscultation bilaterally Heart: regular rate and rhythm, no murmurs Abd: soft, non-tender, non-distended : Guerrero draining clear urine Ext: no edema Skin: warm/well-perfused Neuro: alert and oriented x3, no focal findings Psych: appropriate affect Objective Data Active Medications Acetaminophen (Acetaminophen 325 Mg Tablet) 650 mg PO Q6H PRN PRN Reason: Pain, Mild (Pain Scale 1-3) Atorvastatin Calcium (Atorvastatin Calcium 40 Mg Tablet) 40 mg PO BEDTIME [facility] Last Admin: 03/27/23 21:07 Dose: 40 mg Documented By: JOSE Docusate Sodium (Docusate Sodium 100 Mg Capsule) 100 mg PO DAILY PRN PRN Reason: Constipation Last Admin: 03/27/23 16:11 Dose: 100 mg Documented By: FABIANA Docusate Sodium (Docusate Sodium 100 Mg Capsule) 200 mg PO BEDTIME PRN PRN Reason: constipation Duloxetine HCl (Duloxetine Hcl 20 Mg Capsule.) 20 mg PO BID [facility] Last Admin: 03/28/23 08:19 Dose: 20 mg Documented By: DILLON Enoxaparin Sodium (Enoxaparin Sodium 40 Mg/0.4 Ml Syringe) 40 mg SUBCUT Q24H [facility] Last Admin: 03/27/23 11:06 Dose: 40 mg Documented By: FABIANA Ferrous Sulfate (Ferrous Sulfate 324 Mg Tablet.) 324 mg PO DAILY [facility] Last Admin: 03/28/23 08:19 Dose: 324 mg Documented By: DILLON Finasteride (Finasteride 5 Mg Tablet) 5 mg PO DAILY [facility] Last Admin: 03/28/23 08:18 Dose: 5 mg Documented By: DILLON Gabapentin (Gabapentin 100 Mg Capsule) 200 mg PO BEDTIME [facility] Last Admin: 03/27/23 21:07 Dose: 200 mg Documented By: JOSE Glucose (Glucose Gel 15 Gm Gel..Gram.) 15 gm PO Q15M PRN; Protocol PRN Reason: per Hypoglycemia Standing Ord. Cefepime HCl 2 gm/ Sodium (Chloride) 50 mls @ 100 mls/hr IV Q8H [facility] Last Infusion: 03/28/23 10:23 Dose: 0 mls/hr Documented By: DILLON Lactated Ringer's (Lr) 1,000 mls @ 50 mls/hr IVCONT .Q20H [facility] Last Infusion: 03/28/23 10:24 Dose: 0 mls/hr Documented By: DILLON Dextrose (D10) 250 mls @ 750 mls/hr IV Q15M PRN; Protocol PRN Reason: per Hypoglycemia Standing Ord. Insulin Human Lispro (Insulin Lispro 100 Unit/Ml 3 Ml Vial) 0 unit SUBCUT QIDACHS [facility]; Protocol Last Admin: 03/28/23 08:17 Dose: 4 unit Documented By: DILLON Lidocaine/Diphenhydr/Alum/Mg/Simeth (Mag&Al/Sim/Diphenhyd/Lidocaine 10 Ml Oral.Susp) 10 ml PO QID [facility] Last Admin: 03/28/23 08:18 Dose: 10 ml Documented By: DILLON Lorazepam (Lorazepam 0.5 Mg Tablet) 0.5 mg PO TID PRN PRN Reason: anxiety Last Admin: 03/28/23 08:39 Dose: 0.5 mg Documented By: DILLON Metoprolol Succinate (Metoprolol Succinate Er 12.5 Mg Halftab.Er.24h) 12.5 mg PO BEDTIME COURTNEY; Protocol Last Admin: 03/27/23 21:06 Dose: 12.5 mg Documented By: JOSE Mirtazapine (Mirtazapine 30 Mg Tablet) 30 mg PO BEDTIME [facility] Last Admin: 03/27/23 21:06 Dose: 30 mg Documented By: JOSE Omeprazole (Omeprazole 20 Mg Capsule.) 20 mg PO DAILY [facility] Last Admin: 03/28/23 08:23 Dose: 20 mg Documented By: DILLON Ondansetron HCl (Ondansetron Hcl 4 Mg/2 Ml Vial) 4 mg IVPUSH Q8H PRN PRN Reason: Nausea and Vomiting Oxycodone HCl (Oxycodone Hcl Immed Release 5 Mg Tablet) 5 mg PO Q6H PRN PRN Reason: Pain, Severe (Pain Scale 7-10) Pharmacy Consult (Consult Rx Perform Med Rec) 1 each MISCELLANE ONCE PRN PRN Reason: Consult order Sodium Chloride (0.9 % Sodium Chloride Flush 3 Ml Syringe) 3 ml IVFLUSH QSHIFT [facility] Last Admin: 03/28/23 08:33 Dose: 3 ml Documented By: DILLON Tamsulosin HCl (Tamsulosin Hcl 0.4 Mg Capsule) 0.4 mg PO BEDTIME [facility] Last Admin: 03/27/23 21:07 Dose: 0.4 mg Documented By: JOSE Tramadol HCl (Tramadol Hcl 50 Mg Tablet) 50 mg PO Q6H PRN PRN Reason: Pain, Moderate(Pain Scale 4-6) Vitamin D (Cholecalciferol (Vitamin D3) 25 Mcg Tablet) 25 mcg PO DAILY [facility] Last Admin: 03/28/23 08:19 Dose: 25 mcg Documented By: DILLON Labs 03/27/23 05:18 03/27/23 05:18 Labs: Laboratory Results - last 24 hr 03/27/23 03/27/23 03/27/23 11:24 15:35 18:46 POC Glucose 191 H 266 H 153 H 03/28/23 07:22 POC Glucose 268 H Microbiology Microbiology Results: Microbiology 03/26/23 Unknown Urine Culture - Final Urine Catheterized - Guerrero Catheter 03/26/23 22:08 Blood Culture - Preliminary Blood - Venous No growth after 24 hours. 03/26/23 22:08 Blood Culture - Preliminary Blood - Venous No growth after 24 hours. 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 note pt has hx Pseudomonas UTI, if nothing grows from BCx will likely d/c on PO levofloxacin - Guerrero replaced and follow BCx/UCx. Guerrero replaced. Hx pseudomonal UTI # DM2 - ron-dose lispro # HLD - statin # HTN - metoprolol # anxiety - duloxetine, lorazepam, mirtazapine # prostatism - finasteride, tamsulosin # VTE ppx: LMWH # dispo: anticipate eventually home, PT eval In my clinical judgment, the patient requires continued inpatient hospitalization for the following reasons: IV ABX Time Spent With Patient Time: Total time managing care of this patient today __35__ minutes. Quality Stroke Does the patient have a stroke diagnosis?: No VTE Prior VTE?: No VTE Risk Level:: Medical - moderate - high VTE Device Contraindication: Treatment Not Indicated VTE Drug Contraindication: N/A - Med Ordered
[2023-03-28 12:00] VITALS: BP 156/85; PULSE 84; RESP 20; TEMP 36.9; O2SAT 97
[2023-03-28 12:13] LABS: Glucose, Whole Blood 295 mg/dL (60-115)
--- NOTE | 2023-03-28 12:15 | MHC.CM.PN ---
EMR reviewed and per MD rounds, pt is not medically cleared for D/C and is awaiting blood cultures today. CM will continue to follow.
[2023-03-28] MEDS: Enoxaparin Sodium 40 MG/0.4 ML SYRINGE SUBCUT (14:34)
[2023-03-28 15:59] VITALS: BP 144/83; PULSE 88; RESP 18; TEMP 37; O2SAT 97
[2023-03-28 16:13] LABS: Glucose, Whole Blood 263 mg/dL (60-115)
[2023-03-28 19:45] VITALS: BP 136/76; PULSE 84; RESP 18; TEMP 37.1; O2SAT 97
[2023-03-28 20:06] LABS: Glucose, Whole Blood 187 mg/dL (60-115)
[2023-03-28] MEDS: Tamsulosin HCL 0.4 MG CAPSULE PO (20:48)
[2023-03-28] MEDS: Metoprolol Succinate ER 12.5 MG HALFTAB.ER.24H PO (20:48)
[2023-03-28] MEDS: Mirtazapine 30 MG TABLET PO (20:48)
[2023-03-28] MEDS: Atorvastatin Calcium 40 MG TABLET PO (20:48)
[2023-03-28] MEDS: Gabapentin 100 MG CAPSULE 200 MG PO (20:48)
[2023-03-29] VITALS: BP 142/77; PULSE 82; RESP 18; TEMP 36.7; O2SAT 96
[2023-03-29] MEDS: cefEPime HCl 2 GM in 0.9 % Sodium Chloride 50 ML IV ×2 (01:15→09:26)
[2023-03-29] MEDS: 0.9 % Sodium Chloride Flush 3 ML SYRINGE IVFLUSH ×2 (01:16→09:26)
[2023-03-29 03:44] VITALS: BP 126/68; PULSE 73; RESP 18; TEMP 36.5; O2SAT 96
[2023-03-29 06:33] LABS: Hematocrit 35.1 % (42.0-52.0); Hemoglobin 11.4 g/dl (14.0-18.0); Mean Corpuscular HGB Conc 32.5 g/dl (31.0-36.0); Mean Corpuscular Hemoglobin 29.1 pg (27.0-33.0); Mean Corpuscular Volume 89.5 fL (80.0-98.0); Mean Platelet Volume 10.4 fL (9.4-12.4); Platelet Count 356 X10*3/uL (160-400); Red Blood Count 3.92 X10*6/uL (4.60-5.80); Red Cell Distribution Width 14.7 % (11.0-16.0); White Blood Count 7.4 X10*3/uL (4.8-10.8)
[2023-03-29 06:59] LABS: Anion Gap 12 (12-20); Blood Urea Nitrogen 8 mg/dL (9-16); C Reactive Protein 2.19 mg/dL (< or = 0.50); Calcium 8.8 mg/dL (8.4-10.2); Carbon Dioxide 27 mmol/L (22-29); Chloride 106 mmol/L (96-108); Creatinine Clr Calc Pharmacy 82.5; Estimated Glomerular Filt Rate > 60; Glucose Random 197 mg/dL (60-115); Potassium 4.1 mmol/L (3.3-5.1); Sodium 141 mmol/L (135-145)
[2023-03-29 07:15] VITALS: BP 140/76; PULSE 79; RESP 16; TEMP 36.5; O2SAT 95
[2023-03-29 08:23] LABS: Glucose, Whole Blood 210 mg/dL (60-115)
--- NOTE | 2023-03-29 09:21 | PM.DS ---
DS: Providers Provider Date of Service: 03/29/23 Date of admission: 03/26/23 23:31 Date of discharge: 03/29/23 Primary care physician: Norm Hooks MD DS: Diagnosis Discharge Diagnosis (1) Sepsis: Status: Acute (2) Severe sepsis: Status: Acute (3) Complicated UTI (urinary tract infection): Status: Acute (4) Esophageal cancer: Status: Acute DS: Summary Hospital Course Hospital Course: from admission H+P 03/26/23 by Adi Lopez MD hospitalist: 72-year-old male with past medical history of diabetes, HLD, suprapubic catheter in place, history of adenocarcinoma of the esophagus, anxiety depression, presents to the hospital? complaining that his urinary catheter is not emptying, he is developing suprapubic pain.? Patient reports that this started 2 days ago, he noticed significant sediment in his urine, 10 when he woke up on day of presentation, he had minimal urine in his Guerrero catheterization, as well as pain that was worsening throughout the day therefore decided to come to the hospital.? Patient denies any fever, no chills, no chest pain, no shortness of breath, no lower extremity edema, no headache or change in vision, no numbness weakness or tingling.? On arrival to the ED patient found to have tachycardia of 140,? with elevated blood pressure of 204/122, after pain was controlled his blood pressure spontaneously improved to 147/78 Labs otherwise are significant for WBC count 13.3, hemoglobin of 12.8, medic of 39.2, lactic acid of 2.9, urine that is positive for leukocyte Estrace, WBC, and bacteria ?his Guerrero catheter was replaced in the ED with a new Guerrero catheter he had significant relief. 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 He has a history of Pseudomonas UTI. The Guerrero was replaced. Lactate normalized after fluid resuscitation. [place] [facility] [place] given cefepime for 3 days. Urine culture was contaminated. Blood cultures were negative. He was discharged on 5 days of PO levofloxacin. His chemotherapy appointment with Dr Anna on 03/29/23 was rescheduled 03/31/23. Time Spent with Patient Time attestation: Total time managing care of this patient today __35__ minutes. Discharge coordination time: Greater than 30 minutes Quality: Safe Use of Opioids Does Pt have an Active Cancer Diagnosis on the Problem List?: Yes Opioid Measure Date for [facility] Report: 02/27/23 Opioid Measure Time for [facility] Report: 09:24 Quality: Stroke Does the patient have a stroke diagnosis?: No Physical Exam Vital Signs: Vital Signs: Last Vital Signs Temp 97.7 F 03/29/23 07:15 Pulse 79 03/29/23 07:15 Resp 16 03/29/23 07:15 BP 140/76 H 03/29/23 07:15 Pulse Ox 95 03/29/23 07:15 O2 Del Method Room Air 03/29/23 07:15 BMI result Body Mass Index 22.5 Gen: in no acute d istress HEENT: scl era anicteric, mar[address] st mucus membranes Neck: supple, R c hest wall port wit hout signs of infe ction Lungs: clear to auscultation b ilaterally Heart: regular rate and r hythm, no murmurs Abd: soft, non-ten mario, non-distended : Guerrero drainin g clear urine Ext: no edema Skin: wa rm/well-perfused N euro: alert and or iented x3, no foca l findings Psych: appropriate affect DS: Data Data Completed and Pending Completed studies during hospitalization [Text1]: Laboratory Results WBC 7.4 X10*3/uL (4.8-10.8) 03/29/23 05:56 RBC 3.92 X10*6/uL (4.60-5.80) L 03/29/23 05:56 Hgb 11.4 g/dl (14.0-18.0) L 03/29/23 05:56 Hct 35.1 % (42.0-52.0) L 03/29/23 05:56 MCV 89.5 fL (80.0-98.0) 03/29/23 05:56 MCH 29.1 pg (27.0-33.0) 03/29/23 05:56 MCHC 32.5 g/dl (31.0-36.0) 03/29/23 05:56 RDW 14.7 % (11.0-16.0) 03/29/23 05:56 Plt Count 356 X10*3/uL (160-400) 03/29/23 05:56 MPV 10.4 fL (9.4-12.4) 03/29/23 05:56 Immature Gran % (Auto) 0.4 % (0.0-0.4) 03/27/23 05:18 Neut % (Auto) 66.7 % (45-73) 03/27/23 05:18 Lymph % (Auto) 22.9 % (20-40) 03/27/23 05:18 [place] % (Auto) 9.0 % (2-11) 03/27/23 05:18 Eos % (Auto) 0.8 % (0-4) 03/27/23 05:18 Baso % (Auto) 0.2 % (0-2) 03/27/23 05:18 Lymph # (Auto) 2.6 X10*3/uL (1.2-4.9) 03/27/23 05:18 [place] # (Auto) 1.0 X10*3/uL (0.1-1.2) 03/27/23 05:18 Eos # (Auto) 0.1 X10*3/uL (0.0-0.4) 03/27/23 05:18 Baso # (Auto) 0.0 X10*3/uL (0.0-0.2) 03/27/23 05:18 Abs Immat Gran (auto) 0.04 X10*3/uL (0.00-0.03) H 03/27/23 05:18 Absolute Neuts (auto) 7.5 x10*3/uL (2.0-8.3) 03/27/23 05:18 Absolute Nucleated RBC 0.000 X10*3/uL (0.0-0.012) 03/29/23 05:56 Nucleated RBC % (auto) 0.0 /100WBC (0.0-0.2) 03/29/23 05:56 Sodium 141 mmol/L (135-145) 03/29/23 05:56 Potassium 4.1 mmol/L (3.3-5.1) 03/29/23 05:56 Chloride 106 mmol/L (96-108) 03/29/23 05:56 Carbon Dioxide 27 mmol/L (22-29) 03/29/23 05:56 Anion Gap 12 (12-20) 03/29/23 05:56 BUN 8 mg/dL (9-16) L 03/29/23 05:56 Creatinine 0.79 mg/dL (0.5-1.4) 03/29/23 05:56 Estim Creat Clear Calc 82.5 03/29/23 05:56 Estimated GFR > 60 03/29/23 05:56 POC Glucose 210 mg/dL (60-115) H 03/29/23 07:09 Random Glucose 197 mg/dL (60-115) H 03/29/23 05:56 Lactic Acid 2.9 mmol/L (0.5-2.0) H* 03/26/23 22:08 Lactic Acid F/U @ 2Hr 1.4 mmol/L (0.5-2.0) 03/27/23 00:44 Calcium 8.8 mg/dL (8.4-10.2) D 03/29/23 05:56 Magnesium 1.9 mg/dL (1.6-2.6) 03/26/23 22:09 Total Bilirubin 0.5 mg/dL (0.0-1.0) 03/26/23 22:09 AST 24 U/L (5-37) 03/26/23 22:09 ALT 20 U/L (0-40) 03/26/23 22:09 Alkaline Phosphatase 281 U/L (39-117) H 03/26/23 22:09 Troponin I High Sens 8.0 ng/L (<3.5-35.0) 03/26/23 22:11 C-Reactive Protein 2.19 mg/dL (< or = 0.50) H 03/29/23 05:56 Total Protein 7.6 g/dL (6.5-8.0) 03/26/23 22:09 Albumin 4.1 g/dL (3.5-5.0) 03/26/23 22:09 Lipase 6 U/L (8-78) L 03/26/23 22:09 Urine Color Yellow 03/26/23 22:18 Urine Appearance Cloudy 03/26/23 22:18 Urine pH 8.0 (5.0-9.0) 03/26/23 22:18 Ur Specific [place] 1.015 (1.005-1.025) 03/26/23 22:18 Urine Protein 100 (2+) mg/dL (Neg-Trace) H 03/26/23 22:18 Urine Glucose (UA) >=1000 mg/dL (Negative) H 03/26/23 22:18 Urine Ketones Negative mg/dL (Negative) 03/26/23 22:18 Urine Blood Trace (Negative) H 03/26/23 22:18 Urine Nitrite Negative (Negative) 03/26/23 22:18 Ur Leukocyte Esterase Moderate (2+) (Negative) H 03/26/23 22:18 Urine RBC 6-10 /HPF (0-2) H 03/26/23 22:18 Urine WBC >50 /HPF (0-5) H 03/26/23 22:18 Ur Squamous Epith Cells 0-2 /HPF (0-2) 03/26/23 22:18 Urine Bacteria 4+ (None Seen) 03/26/23 22:18 Hyaline Casts 0-2 /LPF (0-2) 03/26/23 22:18 COVID-19 (JUAN CARLOS) Cancelled 03/26/23 22:12 COVID-19 Clin Com Cancelled 03/26/23 22:12 Impressions Abdomen/Pelvis CT 03/26/23 23:20 IMPRESSION: 1. Thick-walled appearance of the urinary bladder, which could be secondary to cystitis in the proper clinical setting. Correlation with urinalysis recommended. Hyperdense material in the dependent bladder could reflect calcium or possibly excreted recently administered IV contrast. 2. Redemonstrated thick-walled appearance of the distal esophagus, in patient with known esophageal cancer. Discharge Plan Discharge Anticipated Discharge Date/Time: 03/29/23 09:20 Patient Disposition: Home, Self-Care Discharge Diagnosis: Complicated UTI Referrals: Norm Hooks MD [Primary Care Provider] - 1 Week Juan Anna MD [Physician] - 03/31/23 Discharge Medications: New tamsulosin 0.4 mg Capsule 0.4 mg PO BEDTIME Qty: 30 0RF levofloxacin 500 mg tablet 500 mg PO DAILY Qty: 5 0RF Continued atorvastatin 40 mg tablet 40 mg PO QPM Qty: 30 11RF (DME) diabetic shoes See Rx Instructions .Route .MEDSUPPLY Qty: 1 0RF Rx Instructions: extra depth orthopedic shoes ( 1 pair ) with customize heat molded multi density inner soles ( 3 pair) Dispense 1 Sig: As directed DX: And IDDM /polyneuropathy ( E11 0.42 ); hammertoe foot deformity ( M 20.41, and 20.42 ) pre ulcerative skin lesion ( L 85.1 ) 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 ) type 2 diabetes with polyneuropathy (DME) lancets [TRUEplus Lancets] 33 gauge mis MISCELLANEOUS QID Qty: 200 4RF Rx Instructions: Test blood sugar 4 x per day as directed. mirtazapine 30 mg tablet 30 mg PO BEDTIME Qty: 90 1RF insulin asp prt-insulin aspart [Novolog Mix 70-30FlexPen U-100] 100 unit/mL (70-30) insulin pen See Rx Instructions subcut BID Qty: 30 6RF Rx Instructions: 30 units in AM and 22 units in PM subcutaneously 2 times a day; 30 units in AM and 22 units in PM duloxetine 20 mg Capsule,Delayed Release(Dr/Ec) 20 mg PO BID Qty: 60 4RF tramadol 50 mg tablet 50 mg PO Q6-8H PRN (Reason: pain) 30 Days Qty: 120 0RF docusate sodium 100 mg capsule 200 mg PO QPM PRN (Reason: constipation) Qty: 60 5RF ferrous sulfate [FeroSul] 325 mg (65 mg iron) tablet 325 mg PO QAM Qty: 30 7RF omeprazole 20 mg capsule,delayed release(DR/EC) 20 mg PO DAILY Qty: 60 2RF (DME) FreeStyle Lite Strips Strip MISCELLANEOUS QID metoprolol succinate 25 mg tablet extended release 24 hr 0.5 tab PO QPM cholecalciferol (vitamin D3) [Vitamin D3] 25 mcg (1,000 unit) capsule 1 cap PO QAM (DME) pen needle, diabetic [Pentips] 32 gauge x /32 needle MISCELLANEOUS QID Gvoke HypoPen 2-Pack 0.5 mg/0.1 mL auto-injector 0.1 ml subcut DAILY PRN (Reason: Hypoglycemia) ondansetron 8 mg tablet,disintegrating 8 mg PO Q8H PRN (Reason: nausea) lorazepam 0.5 mg tablet 0.5 mg PO BID gabapentin 100 mg capsule 100 mg PO DAILY PRN (Reason: Pain) Discharge Orders: Discharge Order (Routine); Ordered 03/29/23 Ordered By: Anai Patton Diet: Diabetic diet Activity on Discharge: As tolerated Stand Alone Forms: Patient Portal Discharge page Care Plan Goals: cure of infection Health Concerns: Complicated UTI Plan of Treatment: Guerrero replaced Take levofloxacin 500 mg daily for 5 days Please follow up with your primary care doctor within 1 week. Return to the hospital if you experience recurrent or worsening symptoms. See your oncologist Dr Anna on 03/31/23- chemotherapy was rescheduled til then. Assessment: See Discharge Summary.
[2023-03-29] MEDS: Enoxaparin Sodium 40 MG/0.4 ML SYRINGE SUBCUT (09:24)
[2023-03-29] MEDS: Mag&Al/Sim/Diphenhyd/Lidocaine 10 ML ORAL.SUSP PO (09:24)
[2023-03-29] MEDS: Insulin Lispro 100 UNIT/ML 3 ML VIAL SUBCUT (09:25)
[2023-03-29] MEDS: Finasteride 5 MG TABLET PO (09:25)
[2023-03-29] MEDS: LORazepam 0.5 MG TABLET PO (09:26)
[2023-03-29] MEDS: DULoxetine HCl 20 MG CAPSULE.DR PO (09:26)
[2023-03-29] MEDS: Omeprazole 20 MG CAPSULE.DR PO (09:26)
[2023-03-29] MEDS: Cholecalciferol (Vitamin D3) 25 MCG TABLET PO (09:26)
[2023-03-29] MEDS: Ferrous Sulfate 324 MG TABLET.DR PO (09:26)
--- NOTE | 2023-03-29 09:46 | MHC.CM.PN ---
DP: PT HAS BEEN MEDICALLY CLEARED FOR DC HOME, NO SERVICES. RN AWARE. DAUGHTER ADA WILL TRANSPORT.
== END 2023-03-29 12:24 | disposition home or self-care (01) | DRG 698 ==
LOC: HO.ED 23:50 → HO.EDOVER 23:54 → HO.IMC 03-27 00:11
PROVIDERS: Physician Assistant; Admitting Provider Internal Medicine; Emergency Provider Internal Medicine; PCP Internal Medicine; Visit Provider Family Medicine
DX: T83.098A Other mechanical complication of other urinary catheter, initial encounter (principal); A41.9 Sepsis, unspecified organism; N39.0 Urinary tract infection, site not specified; Y73.8 Miscellaneous gastroenterology and urology devices associated with adverse incidents, not elsewhere classified; E11.40 Type 2 diabetes mellitus with diabetic neuropathy, unspecified; N40.0 Benign prostatic hyperplasia without lower urinary tract symptoms; E78.5 Hyperlipidemia, unspecified; F41.9 Anxiety disorder, unspecified; Z85.01 Personal history of malignant neoplasm of esophagus; Z92.21 Personal history of antineoplastic chemotherapy; Z87.440 Personal history of urinary (tract) infections; Z79.899 Other long term (current) drug therapy
CPT/HCPCS: 36415; 74176; 80048; 80053; 81001; 82947; 83605; 83690; 83735; 84484; 85025; 85027; 86140; 87040; 87086; 97161; 99285; C1758; J0692; J0696; J1642; J1650; J2270

== ENCOUNTER → 2023-03-30 11:26 | Outpatient (BNVA) | payer OTHER, SELFPAY | PROVIDERS: PCP Internal Medicine; Referring Provider Internal Medicine Medical Oncology; Visit Provider Surgery | DX: C16.0 Malignant neoplasm of cardia (principal) | CPT/HCPCS: 99202 ==

== ENCOUNTER → 2023-03-31 11:32 | Outpatient (BNVA) | payer OTHER, SELFPAY | PROVIDERS: PCP Internal Medicine; Visit Provider Urology | DX: Z46.6 Encounter for fitting and adjustment of urinary device (principal); R33.9 Retention of urine, unspecified | CPT/HCPCS: 51701 ==

== ENCOUNTER 2023-04-08 05:55 | Day surgery (SDC) | payer OTHER, SELFPAY ==
--- NOTE | 2023-04-07 09:40 | P.CONAN_ITS ---
Documented by User: Kaity Bautista NP 04/07/23 09:41 HPI - Anesthesia Eval Consult details Narrative: 72yo M for OPEN G-Tube placement s/p EGD 02/2023 with TIVA esophageal CA PMFSH Active Problems Active Problems: All Active Problems (Updated 04/06/23 @ 00:03 by Rosy Li) Complicated UTI (urinary tract infection) (Acute) Severe sepsis (Acute) Acute UTI (Acute) History of recurrent UTI (urinary tract infection) (Acute) Esophageal cancer (Acute ~2019) Leukocytosis (Acute) Acidosis, lactic (Acute) Urinary retention with incomplete bladder emptying (Acute) Traumatic ecchymosis of right foot (Acute) Superficial bruising of foot (Acute) Adenocarcinoma of cardio-esophageal junction (Acute ~2019) Diabetes type 2, uncontrolled (Acute) FCI (current) use of insulin (Acute) Benign essential hypertension (Acute) HLD (hyperlipidemia) (Acute) Constipation (Acute) Vitamin D deficiency (Acute) Depression (Acute) Anxiety (Acute) Keratotic lesion (Acute) Past Medical History Medical History Adenocarcinoma of cardio-esophageal junction (~2019) Anxiety Benign essential hypertension Constipation Depression Diabetes type 2, uncontrolled HLD (hyperlipidemia) Keratotic lesion FCI (current) use of insulin Port-A-Cath in place Suprapubic catheter Vitamin D deficiency Family History Family History Father Diabetes Hypertension Mother No problems noted. Family history of problems with anesthesia: No Surgical History Surgical History History of atherectomy (~2018) History of esophagogastroduodenoscopy History of left below knee amputation (~2018) History of Problems with Anesthesia: No Social History Social History Household Members: Family Housing: House Do you presently have visiting nurse or other home services: No Alcohol intake: never Patient Tobacco Use Status: Never used Tobacco e-Cigarette/Vaping Use: Never Used Second Hand Smoke Exposure: No Are you DNR?: No Advance Directives: No Advance Directives Information Provided: Yes Advance Directives Date on File: 02/03/22 Nutrition Risks: No Nutritional Risk service: No Current occupational status: retired and disabled Cognitive needs: No (cane/wheelchair) Hearing needs: No Vision needs: Yes (glasses) Meds Allergies Allergy/AdvReac Type Severity Reaction Status Date / Time No Known Allergies Allergy Verified 03/30/23 11:34 Home Medications Medication Instructions Recorded Confirmed Last Taken Type blood sugar diagnostic (FreeStyle 06/19/22 03/15/23 Unknown History Lite Strips) cholecalciferol (vitamin D3) 25 1 cap PO QAM 06/19/22 03/27/23 Unknown History mcg (1,000 unit) capsule (Vitamin D3) metoprolol succinate 25 mg 0.5 tab PO QPM 06/19/22 03/27/23 04/08/23 History tablet,extended release 24 hr pen needle, diabetic 32 gauge x 06/19/22 03/15/23 Unknown History (Pentips) lorazepam 0.5 mg tablet 0.5 mg PO BID 03/27/23 03/27/23 Unknown History ondansetron 8 mg disintegrating 8 mg PO Q8H PRN nausea 03/27/23 03/27/23 Unknown History tablet insulin aspar prot-insulin aspart See Rx Instructions subcut BID 03/30/23 Unknown History 100 unit/mL (70-30) subcutaneous pen (Novolog Mix 70-30FlexPen U-100) Exam Exam Date and Time: April 07, 2023 0940 Pertinent Lab Results Pertinent Lab Results: Laboratory Tests 03/29/23 03/31/23 05:56 09:27 WBC 7.4 Hgb 11.4 L Hct 35.1 L Plt Count 356 Sodium 140 Potassium 3.7 Chloride 101 Carbon Dioxide 28 BUN 9 Creatinine 0.78 Assessment and Plan Assessment Anesthesia Assessment: Chart Reviewed Final Anesthetic Review Family History of Problems with Anesthesia: No History of Problems with Anesthesia: No Documented by User: Last Hauser MD 04/08/23 07:19 [facility] Past Medical History Medical History Adenocarcinoma of cardio-esophageal junction (~2019) Anxiety Benign essential hypertension Constipation Depression Diabetes type 2, uncontrolled HLD (hyperlipidemia) Keratotic lesion 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 Surgical History Surgical History History of atherectomy (~2018) History of esophagogastroduodenoscopy History of left below knee amputation (~2019) Social History Social History Household Members: Family Housing: House Do you presently have visiting nurse or other home services: No Alcohol intake: never Patient Tobacco Use Status: Never used Tobacco e-Cigarette/Vaping Use: Never Used Second Hand Smoke Exposure: No Are you DNR?: No Advance Directives: No Advance Directives Information Provided: Yes Advance Directives Date on File: 02/03/22 Nutrition Risks: No Nutritional Risk service: No Current occupational status: retired and disabled Cognitive needs: No (cane/wheelchair) Hearing needs: No Vision needs: Yes (glasses) Meds Allergies Allergy/AdvReac Type Severity Reaction Status Date / Time No Known Allergies Allergy Verified 03/30/23 11:34 Home Medications Medication Instructions Recorded Confirmed Last Taken Type blood sugar diagnostic (FreeStyle 06/19/22 03/15/23 Unknown History Lite Strips) cholecalciferol (vitamin D3) 25 1 cap PO QAM 06/19/22 03/27/23 Unknown History mcg (1,000 unit) capsule (Vitamin D3) metoprolol succinate 25 mg 0.5 tab PO QPM 06/19/22 03/27/23 04/08/23 History tablet,extended release 24 hr pen needle, diabetic 32 gauge x 06/19/22 03/15/23 Unknown History (Pentips) lorazepam 0.5 mg tablet 0.5 mg PO BID 03/27/23 03/27/23 Unknown History ondansetron 8 mg disintegrating 8 mg PO Q8H PRN nausea 05/14/23 05/14/23 Unknown History tablet insulin aspar prot-insulin aspart See Rx Instructions subcut BID 03/30/23 Unknown History 100 unit/mL (70-30) subcutaneous pen (Novolog Mix 70-30FlexPen U-100) Exam Airway Mallampati Class: II TM Dist: >3cm Neck ROM: Limited Heart: rrr Lungs: cta Assessment and Plan Assessment Anesthesia Assessment: Anesthesia Plan Discussed Final Anesthetic Review NPO: Yes ASA Class: II Final Preanesthetic Review: No Changes in Pt Med Stat, Meds/Allgs Chart Reviewed, Consent Obtained/Reviewed and Anes Risks/Benef Reviewed Patient Risk: High Procedure Risk: Intermediate Anesthetic Plan Anesthetic Plan: GA and Agree w/ Assess. and Plan Disposition: Standard PACU
--- NOTE | 2023-04-07 11:28 | MHC.SHP ---
Pre-Procedural Eval Section A Date of Service: 04/07/23 The patient is an INPATIENT: No Changes since office visit: No Cold of Flu in the past 2 weeks, No New Medical Problems, No Changes in Medication and No Patient answered all questions The History & Physical has been completed within 30 days and I have reviewed it.: Yes Section B Chief Complaint: Malignant neoplasm of cardia Allergies: Allergies Allergy/AdvReac Type Severity Reaction Status Date / Time No Known Allergies Allergy Verified 03/30/23 11:34 Plan I have reviewed the history and physical and performed a pertinent physical examination on my patient. No changes have occurred unless specified. Time Spent With Patient Time: Total time managing care of this patient today ____ minutes.
[2023-04-08] VITALS (8 sets, daily range): BP systolic 150–170; BP diastolic 78–90; PULSE 76–92; RESP 16–18; TEMP 36.3–36.6; O2SAT 97–100; BMI 22.8
[2023-04-08] MEDS: Lactated Ringers 1,000 ML 100 ML IVCONT (06:32)
--- NOTE | 2023-04-08 08:24 | W.PM.OPN ---
Operative Note Operative Note Date of Service: 04/08/23 Narrative: Preoperative diagnosis: [] obstructing esophageal cancer, malnutrition Postop diagnosis: [] save Procedure [] open G-tube placement Surgeon: [] Fabiano Cashier Tube Room: [] kika Mathis Type of Anesthesia: [] general Indication for surgery: [] nutritional supplementation Findings: [] patient brought to the operating room, placed on the operative table in the supine position, andafter adequate level of general anesthesia was induced, the patient's abdomen was prepped and draped in usual sterile fashion. Incision site was infiltrated with 0.5% Marcaine and 1% lidocaine. Using a small supraumbilical midline incision, this carried down through skin, subcutaneous tissue, and linea alba. Posterior fascia and perineum were open. Stomach was identified and brought onto the field. Two pursestring sutures were placed on the anterior stomach wall used2-0 silk. Next through a separate stab wound incision in the left upper quadrant, a 24 Arabic 5 cc balloon Guerrero catheter entered the abdominal cavity. A gastrotomy was made using Bovie in the center of the 2 pursestring sutures and the the feeding tube advanced into the distal stomach and 5 cc balloon inflated. Pursestring sutures were sutured .. Stomach was then pexyed to the anterior abdominal wall using interrupted 2-0 silk sutures. G-tube was flushed with good flow and retrieval of gastric contents. Wound was irrigated, secured hemostasis, and closed in the following manner; fascia was closed using 1. Looped 0 PDS. Interrupted inverted subdermal 3-0 Vicryl sutures followed by running subcuticular 4-0 Vicryl sutures were placed. Steri-Strips and sterile dressings were applied. Sponge, needle, and instrument counts were reported to be correct. Patient tolerated the procedure well and emerged anesthesia stable condition. EBL minimal
[2023-04-08] MEDS: oxyCODONE HCl Immed Release 5 MG TABLET PO (09:02)
[2023-04-08] MEDS: Acetaminophen 325 MG TABLET 650 MG PO (09:02)
== END 2023-04-08 10:00 | disposition home or self-care (01) ==
PROVIDERS: PCP Internal Medicine; Visit Provider Surgery
PROC: 0DH63UZ Insertion of Feeding Device into Stomach, Percutaneous Approach (ICD-10-PCS; CPT 43246; principal; 2023-04-08 07:30)
DX: C16.0 Malignant neoplasm of cardia (principal); E63.9 Nutritional deficiency, unspecified; K22.2 Esophageal obstruction; Z92.21 Personal history of antineoplastic chemotherapy; Z92.3 Personal history of irradiation; I10 Essential (primary) hypertension; E78.5 Hyperlipidemia, unspecified; E55.9 Vitamin D deficiency, unspecified; F32.A Depression, unspecified; F41.1 Generalized anxiety disorder; E11.9 Type 2 diabetes mellitus without complications; Z79.4 Long term (current) use of insulin; Z89.512 Acquired absence of left leg below knee; Z79.899 Other long term (current) drug therapy
CPT/HCPCS: 49440; J0690

== ENCOUNTER 2023-04-12 07:30 | Outpatient (REF) | payer OTHER, SELFPAY ==
[2023-04-12 12:32] LABS: MANUAL DIFF FLAG NO
[2023-04-12 12:40] LABS: Basophils Percent Auto 0.4 % (0-2); Eosinophils Absolute Auto 0.7 X10*3/uL (0.0-0.4); Eosinophils Percent Auto 9.3 % (0-4); Hematocrit 38.4 % (42.0-52.0); Imm Gran Abs Auto 0.03 X10*3/uL (0.00-0.03); Imm Gran Pct Auto 0.4 % (0.0-0.4); Lymphocytes Absolute Auto 1.8 X10*3/uL (1.2-4.9); Lymphocytes Percent Auto 24.2 % (20-40); Mean Corpuscular HGB Conc 31.3 g/dl (31.0-36.0); Mean Corpuscular Hemoglobin 28.7 pg (27.0-33.0); Mean Corpuscular Volume 91.9 fL (80.0-98.0); Mean Platelet Volume 10.9 fL (9.4-12.4); Monocytes Absolute Auto 0.6 X10*3/uL (0.1-1.2); Monocytes Percent Auto 7.9 % (2-11); Neutrophils Absolute Auto 4.3 x10*3/uL (2.0-8.3); Neutrophils Percent Auto 57.8 % (45-73); Platelet Count 304 X10*3/uL (160-400); Red Blood Count 4.18 X10*6/uL (4.60-5.80); Red Cell Distribution Width 14.8 % (11.0-16.0); White Blood Count 7.4 X10*3/uL (4.8-10.8)
[2023-04-12 12:52] LABS: Alanine Aminotransferase 12 U/L (0-40); Albumin Level 3.5 g/dL (3.5-5.0); Alkaline Phosphatase 166 U/L (39-117); Anion Gap 11 (12-20); Aspartate Amino Transferase 18 U/L (5-37); Bilirubin Total 0.6 mg/dL (0.0-1.0); Blood Urea Nitrogen 12 mg/dL (9-16); Calcium 8.8 mg/dL (8.4-10.2); Carbon Dioxide 30 mmol/L (22-29); Chloride 100 mmol/L (96-108); Estimated Glomerular Filt Rate > 60; Glucose Random 283 mg/dL (60-115); Potassium 4.3 mmol/L (3.3-5.1); Sodium 137 mmol/L (135-145); Total Protein 6.7 g/dL (6.5-8.0)
== END 2023-04-12 07:31 | disposition home or self-care (01) ==
LOC: HO.LHD 07:30
PROVIDERS: Visit Provider Internal Medicine Medical Oncology
DX: C16.0 Malignant neoplasm of cardia (principal); D72.829 Elevated white blood cell count, unspecified
CPT/HCPCS: 36415; 80053; 85025

== ENCOUNTER → 2023-04-18 08:57 | Outpatient (BNVA) | payer OTHER, SELFPAY | PROVIDERS: PCP Internal Medicine; Visit Provider Surgery | DX: C15.4 Malignant neoplasm of middle third of esophagus (principal); E11.65 Type 2 diabetes mellitus with hyperglycemia; Z46.59 Encounter for fitting and adjustment of other gastrointestinal appliance and device; Z96.0 Presence of urogenital implants; Z79.4 Long term (current) use of insulin | CPT/HCPCS: 99212 ==

== ENCOUNTER → 2023-04-21 13:32 | Outpatient (BNVA) | payer OTHER, SELFPAY | PROVIDERS: PCP Internal Medicine; Visit Provider Urology | DX: N39.0 Urinary tract infection, site not specified (principal) | CPT/HCPCS: 51702 ==

== ENCOUNTER 2023-05-09 07:51 | Outpatient (REF) | payer OTHER, SELFPAY ==
[2023-05-09 10:42] LABS: MANUAL DIFF FLAG NO
[2023-05-09 10:53] LABS: Basophils Percent Auto 0.4 % (0-2); Eosinophils Absolute Auto 0.2 X10*3/uL (0.0-0.4); Eosinophils Percent Auto 2.4 % (0-4); Hematocrit 41.1 % (42.0-52.0); Hemoglobin 13.1 g/dl (14.0-18.0); Imm Gran Abs Auto 0.06 X10*3/uL (0.00-0.03); Imm Gran Pct Auto 0.8 % (0.0-0.4); Lymphocytes Percent Auto 26.4 % (20-40); Mean Corpuscular HGB Conc 31.9 g/dl (31.0-36.0); Mean Corpuscular Hemoglobin 28.8 pg (27.0-33.0); Mean Corpuscular Volume 90.3 fL (80.0-98.0); Mean Platelet Volume 10.7 fL (9.4-12.4); Monocytes Absolute Auto 0.6 X10*3/uL (0.1-1.2); Monocytes Percent Auto 7.4 % (2-11); Neutrophils Absolute Auto 4.7 x10*3/uL (2.0-8.3); Neutrophils Percent Auto 62.6 % (45-73); Platelet Count 368 X10*3/uL (160-400); Red Blood Count 4.55 X10*6/uL (4.60-5.80); Red Cell Distribution Width 14.6 % (11.0-16.0); White Blood Count 7.5 X10*3/uL (4.8-10.8)
[2023-05-09 11:27] LABS: Alanine Aminotransferase 21 U/L (0-40); Albumin Level 3.5 g/dL (3.5-5.0); Alkaline Phosphatase 195 U/L (39-117); Anion Gap 13 (12-20); Aspartate Amino Transferase 23 U/L (5-37); Bilirubin Total 0.6 mg/dL (0.0-1.0); Blood Urea Nitrogen 12 mg/dL (9-16); Calcium 9.2 mg/dL (8.4-10.2); Carbon Dioxide 27 mmol/L (22-29); Chloride 105 mmol/L (96-108); Estimated Glomerular Filt Rate > 60; Glucose Random 323 mg/dL (60-115); Potassium 4.6 mmol/L (3.3-5.1); Sodium 140 mmol/L (135-145); Total Protein 7.4 g/dL (6.5-8.0)
== END 2023-05-09 07:52 | disposition home or self-care (01) ==
LOC: HO.LHD 07:51
PROVIDERS: Visit Provider Internal Medicine Medical Oncology
DX: C15.9 Malignant neoplasm of esophagus, unspecified (principal)
CPT/HCPCS: 36415; 80053; 85025

== ENCOUNTER → 2023-05-20 15:09 | Outpatient (BNVA) | payer OTHER, SELFPAY | PROVIDERS: PCP Internal Medicine; Visit Provider Urology | DX: R33.9 Retention of urine, unspecified (principal) | CPT/HCPCS: 51702 ==

== ENCOUNTER 2023-05-30 07:46 | Outpatient (REF) | payer OTHER, SELFPAY ==
[2023-05-30 10:58] LABS: MANUAL DIFF FLAG NO
[2023-05-30 11:13] LABS: Basophils Percent Auto 0.5 % (0-2); Eosinophils Absolute Auto 0.2 X10*3/uL (0.0-0.4); Hematocrit 40.8 % (42.0-52.0); Hemoglobin 12.8 g/dl (14.0-18.0); Imm Gran Abs Auto 0.03 X10*3/uL (0.00-0.03); Imm Gran Pct Auto 0.3 % (0.0-0.4); Lymphocytes Absolute Auto 3.2 X10*3/uL (1.2-4.9); Lymphocytes Percent Auto 36.4 % (20-40); Mean Corpuscular HGB Conc 31.4 g/dl (31.0-36.0); Mean Corpuscular Hemoglobin 28.4 pg (27.0-33.0); Mean Corpuscular Volume 90.7 fL (80.0-98.0); Mean Platelet Volume 11.1 fL (9.4-12.4); Monocytes Absolute Auto 0.8 X10*3/uL (0.1-1.2); Monocytes Percent Auto 8.6 % (2-11); Neutrophils Absolute Auto 4.5 x10*3/uL (2.0-8.3); Neutrophils Percent Auto 52.2 % (45-73); Platelet Count 383 X10*3/uL (160-400); Red Cell Distribution Width 14.8 % (11.0-16.0); White Blood Count 8.7 X10*3/uL (4.8-10.8)
[2023-05-30 11:28] LABS: Alanine Aminotransferase 24 U/L (0-40); Albumin Level 3.5 g/dL (3.5-5.0); Alkaline Phosphatase 185 U/L (39-117); Anion Gap 13 (12-20); Aspartate Amino Transferase 26 U/L (5-37); Bilirubin Total 0.8 mg/dL (0.0-1.0); Blood Urea Nitrogen 11 mg/dL (9-16); Calcium 9.5 mg/dL (8.4-10.2); Carbon Dioxide 26 mmol/L (22-29); Chloride 106 mmol/L (96-108); Estimated Glomerular Filt Rate > 60; Glucose Random 254 mg/dL (60-115); Potassium 4.4 mmol/L (3.3-5.1); Sodium 141 mmol/L (135-145)
== END 2023-05-30 07:47 | disposition home or self-care (01) ==
LOC: HO.LHD 07:46
PROVIDERS: Visit Provider Internal Medicine Medical Oncology
DX: C15.4 Malignant neoplasm of middle third of esophagus (principal)
CPT/HCPCS: 36415; 80053; 85025

== ENCOUNTER 2023-06-20 07:09 | Outpatient (REF) | payer OTHER, SELFPAY ==
[2023-06-20 11:17] LABS: MANUAL DIFF FLAG NO
[2023-06-20 11:22] LABS: Basophils Percent Auto 0.3 % (0-2); Eosinophils Absolute Auto 0.1 X10*3/uL (0.0-0.4); Hematocrit 40.1 % (42.0-52.0); Hemoglobin 13.2 g/dl (14.0-18.0); Imm Gran Abs Auto 0.05 X10*3/uL (0.00-0.03); Imm Gran Pct Auto 0.5 % (0.0-0.4); Lymphocytes Absolute Auto 2.6 X10*3/uL (1.2-4.9); Lymphocytes Percent Auto 27.1 % (20-40); Mean Corpuscular HGB Conc 32.9 g/dl (31.0-36.0); Mean Corpuscular Volume 88.1 fL (80.0-98.0); Mean Platelet Volume 11.4 fL (9.4-12.4); Monocytes Percent Auto 10.7 % (2-11); Neutrophils Absolute Auto 5.8 x10*3/uL (2.0-8.3); Neutrophils Percent Auto 60.4 % (45-73); Platelet Count 380 X10*3/uL (160-400); Red Blood Count 4.55 X10*6/uL (4.60-5.80); Red Cell Distribution Width 14.5 % (11.0-16.0); White Blood Count 9.7 X10*3/uL (4.8-10.8)
[2023-06-20 11:42] LABS: Alanine Aminotransferase 22 U/L (0-40); Albumin Level 3.5 g/dL (3.5-5.0); Alkaline Phosphatase 185 U/L (39-117); Anion Gap 17 (12-20); Aspartate Amino Transferase 21 U/L (5-37); Bilirubin Total 0.7 mg/dL (0.0-1.0); Blood Urea Nitrogen 11 mg/dL (9-16); Calcium 8.9 mg/dL (8.4-10.2); Carbon Dioxide 23 mmol/L (22-29); Chloride 101 mmol/L (96-108); Estimated Glomerular Filt Rate > 60; Glucose Random 240 mg/dL (60-115); Potassium 3.7 mmol/L (3.3-5.1); Sodium 137 mmol/L (135-145); Total Protein 7.3 g/dL (6.5-8.0)
== END 2023-06-20 07:10 | disposition home or self-care (01) ==
LOC: HO.LHD 07:09
PROVIDERS: Visit Provider Internal Medicine Medical Oncology
DX: C80.1 Malignant (primary) neoplasm, unspecified (principal)
CPT/HCPCS: 36415; 80053; 85025

== ENCOUNTER → 2023-06-24 14:50 | Outpatient (BNVA) | payer OTHER, SELFPAY | PROVIDERS: PCP Internal Medicine; Visit Provider Urology | DX: R33.9 Retention of urine, unspecified (principal) | CPT/HCPCS: 51701 ==

== ENCOUNTER 2023-07-11 07:29 | Outpatient (REF) | payer OTHER, SELFPAY ==
[2023-07-11 11:15] LABS: MANUAL DIFF FLAG NO
[2023-07-11 11:17] LABS: Basophils Percent Auto 0.3 % (0-2); Eosinophils Absolute Auto 0.1 X10*3/uL (0.0-0.4); Hemoglobin 14.3 g/dl (14.0-18.0); Imm Gran Abs Auto 0.04 X10*3/uL (0.00-0.03); Imm Gran Pct Auto 0.4 % (0.0-0.4); Lymphocytes Absolute Auto 2.9 X10*3/uL (1.2-4.9); Lymphocytes Percent Auto 29.7 % (20-40); Mean Corpuscular HGB Conc 31.8 g/dl (31.0-36.0); Mean Corpuscular Hemoglobin 28.8 pg (27.0-33.0); Mean Corpuscular Volume 90.5 fL (80.0-98.0); Mean Platelet Volume 11.7 fL (9.4-12.4); Monocytes Absolute Auto 0.8 X10*3/uL (0.1-1.2); Monocytes Percent Auto 8.1 % (2-11); Neutrophils Absolute Auto 5.9 x10*3/uL (2.0-8.3); Neutrophils Percent Auto 60.5 % (45-73); Platelet Count 382 X10*3/uL (160-400); Red Blood Count 4.97 X10*6/uL (4.60-5.80); Red Cell Distribution Width 14.6 % (11.0-16.0); White Blood Count 9.8 X10*3/uL (4.8-10.8)
[2023-07-11 11:32] LABS: Alanine Aminotransferase 22 U/L (0-40); Albumin Level 3.8 g/dL (3.5-5.0); Alkaline Phosphatase 160 U/L (39-117); Anion Gap 15 (12-20); Aspartate Amino Transferase 23 U/L (5-37); Bilirubin Total 0.8 mg/dL (0.0-1.0); Blood Urea Nitrogen 21 mg/dL (9-16); Calcium 9.6 mg/dL (8.4-10.2); Carbon Dioxide 27 mmol/L (22-29); Chloride 102 mmol/L (96-108); Estimated Glomerular Filt Rate > 60; Glucose Random 226 mg/dL (60-115); Sodium 140 mmol/L (135-145); Total Protein 7.8 g/dL (6.5-8.0)
== END 2023-07-11 07:30 | disposition home or self-care (01) ==
LOC: HO.LHD 07:29
PROVIDERS: Family Medicine; Visit Provider Internal Medicine Medical Oncology
DX: C15.9 Malignant neoplasm of esophagus, unspecified (principal)
CPT/HCPCS: 36415; 80053; 85025

== ENCOUNTER 2023-07-12 13:00 | Outpatient (RCR) | payer MEDICARE, OTHER, SELFPAY ==
--- NOTE | 2020-10-27 16:19 | MHC.HEMONC ---
TELEVISIT; follow up in 3 months
--- NOTE | 2020-10-27 16:50 | HO.HEMONCTE1 ---
[facility] Telehealth - Telehealth Location of Provider rendering services: [facility] OFFICE. 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 Endoscopic ultrasound on May 10: Ulcerated and friable partially obstructing mass extending from the GE junction through the cardia. Mass is circumferential hypoechoic fairly well some come scribed and rather homogeneous. Penetrates the muscularis propria. Making it a T3 lesion. Numerous small shotty lymph node largest being 7.5 mm not pathologic by size criteria. Tumor extends onto the gastric cardia. Celiac adenopathy could not be assessed. CURRENT THERAPY: Started radiation: July [id number]. Completed low-dose carboplatin and Taxol weekly 08/13/2019. Interval History Interval history: This is a pleasant 70-year-old gentleman with whom, a tele visit was held. I talked to him as well as his daughter. He has been doing very well. He is able to swallow fine. He has been eating all sorts of food. He denies any dysphagia or odynophagia. He denies chest pain or trouble breathing. Abdominal pain nausea or vomiting no heartburn indigestion. Bowels are working without any gross blood in it. He enjoys a good appetite. His weight is stable. He has good energy level. He has been staying home except for going out for the physical therapy. That is done. No fever nor chills. He is in good spirits. Rest of the review of systems is unremarkable. Review of Systems - Constitutional Reports system reviewed and no additional complaints, except as documented - Eyes Reports system reviewed and no additional complaints, except as documented - ENT Reports system reviewed and no additional complaints, except as documented - Cardiovascular Reports system reviewed and no additional complaints, except as documented - Respiratory Reports no additional respiratory complaints - Gastrointestinal Reports system reviewed and no additional complaints, except as documented - Genitourinary Genitourinary: Reports no additional male genitourinary complaints - Musculoskeletal Reports system reviewed and no additional complaints, except as documented - Integumentary/Breasts Skin/Breast: Reports no additional skin complaints - Neurologic Reports system reviewed and no additional complaints, except as documented - Psychiatric Reports system reviewed and no additional complaints, except as documented - Endocrine Reports no additional endocrine complaints - Hematologic/Lymphatic Reports system reviewed and no additional complaints, except as documented - Allergic/Immunologic Reports system reviewed and no additional complaints, except as documented Home Medications and Allergies Home Medications Medication Instructions Recorded Confirmed Type cholecalciferol (vitamin D3) 25 25 mcg PO DAILY 08/22/20 08/22/20 History mcg (1,000 unit) capsule ferrous sulfate 325 mg (65 mg 325 mg PO DAILY 08/22/20 History iron) tablet finasteride 5 mg tablet 5 mg PO DAILY 08/22/20 History losartan 100 mg tablet 100 mg PO DAILY 08/22/20 08/22/20 History metoprolol succinate 25 mg 25 mg PO DAILY 08/22/20 08/22/20 History tablet,extended release 24 hr omeprazole 20 mg capsule,delayed 20 mg PO BID 08/22/20 History release Allergies Allergy/AdvReac Type Severity Reaction Status Date / Time No Known Allergies Allergy Verified 08/21/20 09:24 Progress Note: A/P (1) Carcinoma of thoracic esophagus Status: Acute Assessment and plan: This is a pleasant 69-year-old gentleman diagnosed with carcinoma of the esophagus. Upper endoscopy showed: 4 cm mass extending from the EG junction to 1-2 cm below the EG junction. Pathology: Superficial fragments of adenocarcinoma, moderately differentiated, arising in a background of Mcintyre's esophagus. HER2: 0. Endoscopic ultrasound May 10 2019: T3, N0 lesion. PET scan revealed disease confined to the esophagus. He underwent neoadjuvant chemoradiation. He received carboplatin and Taxol weekly. PET scan on 10/04/2019 showed: Mild improvement in uptake in the distal esophagus and fundus of the stomach. C6 cervical vertebra showed uptake question of a lesion. Stable small right lower lung nodule. No uptake. Bone scan from 10/22 revealed: Mild abnormalities in several ribs likely representing chronic rib fractures an ongoing bone remodeling Mild on specific abnormalities is all related to arthritis. He saw Dr. Bonilla. He did offer surgical resection however patient was concerned about the risks involved and so declined. EGD from 12/07/2019: EG junction was located at 39 cm. There were 2 areas of ulceration 1 measuring 10 mm and 1 measuring 5 mm at the EG junction. The previous tumor was not seen. No stricture. Pathology: GE junction mucosa with moderate acute and chronic inflammation, mucin and detached fragments of granulation tissue consistent with ulcer and esophagitis, negative for dysplasia or malignancy. CT scan from 01/21 revealed: Stable pulmonary nodules compared to 03/15 019.. He has been feeling really well. He denies any further dysphagia. He is eating and gaining weight. PLAN: To continue to monitor him along. He will return in 3 months for a follow-up visit. Will check labs at that time. 25 minutes was spent coordinating his care including the tele visit, review of labs, review of imaging, and counseling the patient. Thank you, CC: Dr. diane. Dr. Stuart. . - Time Spent With Patient Total time spent is greater than 50% in coordination of care (as documented) at patient's floor/unit and/or counseling patient: 25 - 35 minutes
[2021-01-22 15:12] VITALS: BP 163/88; PULSE 107; RESP 12; TEMP 37.3; O2SAT 99; BMI 24.1
--- NOTE | 2021-01-22 15:49 | MHC.HEMONCMA ---
Pt present to f/u on malignant neoplasm of esophagus. History reviewed, labs drawn and pt to return in 3 months.
[2021-01-22 15:59] LABS: MANUAL DIFF FLAG NO
[2021-01-22 16:04] LABS: Basophils Percent Auto 0.4 % (0-2); Eosinophils Absolute Auto 0.1 X10*3/uL (0.0-0.4); Eosinophils Percent Auto 1.5 % (0-4); Hematocrit 44.1 % (42-52); Hemoglobin 14.4 g/dl (14.0-18.0); Imm Gran Abs Auto 0.04 X10*3/uL (0.00-0.03); Imm Gran Pct Auto 0.4 % (0.0-0.4); Lymphocytes Absolute Auto 3.3 X10*3/uL (1.2-4.9); Lymphocytes Percent Auto 35.2 % (20-40); Mean Corpuscular HGB Conc 32.7 g/dl (31.0-36.0); Mean Corpuscular Hemoglobin 28.7 pg (27.0-33.0); Mean Corpuscular Volume 87.8 fL (80-98); Mean Platelet Volume 10.6 fL (9.4-12.4); Monocytes Absolute Auto 0.7 X10*3/uL (0.1-1.2); Monocytes Percent Auto 7.7 % (2-11); Neutrophils Absolute Auto 5.2 X10*3/uL (2.0-8.3); Neutrophils Percent Auto 54.8 % (45-73); Platelet Count 290 X10*3/uL (160-400); Red Blood Count 5.02 X10*6/uL (4.60-5.80); Red Cell Distribution Width 13.5 % (11.0-16.0); White Blood Count 9.5 X10*3/uL (4.8-10.8)
--- NOTE | 2021-01-22 16:15 | MHC.HEMONCSW ---
PATIENT HERE IN FOLLOW UP FOR ESOPHAGEAL CANCER. REMAINS INDEPENDENT. GOOD SUPPORTS. DENIED DISTRESS AND CONCERNS. HE IS AWARE OF MY AVAILABILITY.
[2021-01-22 16:32] LABS: Alanine Aminotransferase 23 U/L (0-40); Albumin Level 4.3 g/dL (3.5-5.0); Alkaline Phosphatase 204 U/L (39-117); Anion Gap 12 (12-20); Aspartate Amino Transferase 21 U/L (5-37); Bilirubin Total 0.6 mg/dL (0.0-1.0); Blood Urea Nitrogen 13 mg/dL (9-16); Calcium 9.1 mg/dL (8.4-10.2); Carbon Dioxide 28 mmol/L (22-29); Chloride 104 mmol/L (96-108); Creatinine Clr Calc Pharmacy 81.4; Estimated Glomerular Filt Rate > 60; Glucose Random 220 mg/dL (60-115); Sodium 140 mmol/L (135-145); Total Protein 7.7 g/dL (6.5-8.0)
--- NOTE | 2021-01-22 16:48 | PM.HEMONCPN ---
Medical Summary - Medical Summary Date of Service: 01/22/21 Chief complaint: Follow-up for colon cancer of the esophagus. 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 Endoscopic ultrasound on May 10: Ulcerated and friable partially obstructing mass extending from the GE junction through the cardia. Mass is circumferential hypoechoic fairly well some come scribed and rather homogeneous. Penetrates the muscularis propria. Making it a T3 lesion. Numerous small shotty lymph node largest being 7.5 mm not pathologic by size criteria. Tumor extends onto the gastric cardia. Celiac adenopathy could not be assessed. CURRENT THERAPY: Started radiation: July [id number]. Completed low-dose carboplatin and Taxol weekly 08/13/2019. Interval History Interval history: This is a pleasant 70-year-old gentleman here for a follow-up visit. He has been doing very well. He is able to swallow fine. He has been eating all sorts of food. He denies any dysphagia or odynophagia. He denies chest pain or trouble breathing. Denies Abdominal pain nausea or vomiting no heartburn indigestion. Bowels are working without any gross blood in it. He enjoys a good appetite. He has gained weight. He has good energy level. No fever nor chills. He is in good spirits. Rest of the review of systems is unremarkable. Review of Systems - Constitutional Reports system reviewed and no additional complaints, except as documented, Denies weakness - Eyes Reports system reviewed and no additional complaints, except as documented, Denies blurry vision - ENT Reports system reviewed and no additional complaints, except as documented - Cardiovascular Reports system reviewed and no additional complaints, except as documented, Denies chest pain at rest - Respiratory Reports no additional respiratory complaints, Denies chest congestion - Gastrointestinal Reports system reviewed and no additional complaints, except as documented, Denies abdominal pain, Denies belching, Denies difficulty swallowing - Genitourinary Genitourinary: Reports no additional male genitourinary complaints, Denies blood in urine - Musculoskeletal Reports system reviewed and no additional complaints, except as documented, Denies decreased muscle mass - Integumentary/Breasts Skin/Breast: Reports no additional skin complaints - Neurologic Reports system reviewed and no additional complaints, except as documented - Psychiatric Reports system reviewed and no additional complaints, except as documented, Denies behavioral changes - Endocrine Reports no additional endocrine complaints, Denies excessive sweating - Hematologic/Lymphatic Reports system reviewed and no additional complaints, except as documented, Denies easy bleeding - Allergic/Immunologic Reports system reviewed and no additional complaints, except as documented, Denies GI upset with certain foods PMFSH Medical History: Medical History (Last Updated 08/22/20 @ 12:26 by Brett Sanchez MD) Diabetes type 2, uncontrolled Diabetic nephropathy associated with type 2 diabetes mellitus Diabetic neuropathy associated with type 2 diabetes mellitus Dyslipidemia Hypertension 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 Surgical History: Surgical History (Last Updated 08/21/20 @ 09:27 by PRAMOD Costa) History of atherectomy History of left below knee amputation Social History: Social History (Last Updated 08/22/20 @ 11:11 by PRAMOD Alvarado) Advance Directives: Advance Directives Date on File: 08/19/20 Nutrition Assessment: Patient : No Oncology Screenings - ECOG Performance Status ECOG Performance Status: 1 Home Medications and Allergies Home Medications Medication Instructions Recorded Confirmed Type metoprolol succinate 25 mg 25 mg PO DAILY 08/22/20 01/22/21 History tablet,extended release 24 hr omeprazole 20 mg capsule,delayed 20 mg PO BID 08/22/20 01/22/21 History release Allergies Allergy/AdvReac Type Severity Reaction Status Date / Time No Known Allergies Allergy Verified 08/21/20 09:24 Exam Vital signs: Vital Signs Temp 99.2 F 01/22/21 15:12 Pulse 107 H 01/22/21 15:12 Resp 12 01/22/21 15:12 BP 163/88 H 01/22/21 15:12 Pulse Ox 99 01/22/21 15:12 Intake & Output 01/21/21 01/22/21 01/22/21 18:59 06:59 18:59 Other: Weight 72 kg [place] Weight in Grams [id number] Weight 72 kg Body Mass Index 24.1 - Constitutional Present: no acute distress - Routine HEENT Exam Head: Present: normal inspection Eye: Present: normal appearance ENT: Present: mucous membranes moist - Routine Neck Exam Present: full ROM - Routine Respiratory Exam Present: CTAB - Routine Cardiovascular Exam Cardiovascular: Present: RRR, S1, S2 - Routine Abdominal Exam Present: soft, nontender - Routine Extremities Exam Present: nontender - Routine Back/Spine/Pelvis Exam Back/Spine: Present: full ROM - Routine Skin Exam Present: intact - Routine Neurological Exam Present: alert, oriented X3 - Routine Psychiatric Exam Present: normal affect Data - Labs CBC & Chem 7: 01/22/21 15:27 01/22/21 15:27 Labs: 01/22/21 15: Complete Blood Count Auto Diff Routine Laboratory Last Values WBC 9.5 X10*3/uL (4.8-10.8) 01/22/21 15: RBC 5.02 X10*6/uL (4.60-5.80) 01/22/21 15: Hgb 14.4 g/dl (14.0-18.0) 01/22/21 15: Hct 44.1 % (42-52) 01/22/21 15: MCV 87.8 fL (80-98) 01/22/21 15: MCH 28.7 pg (27.0-33.0) 01/22/21 15: MCHC 32.7 g/dl (31.0-36.0) 01/22/21 15: RDW 13.5 % (11.0-16.0) 01/22/21 15: Plt Count 290 X10*3/uL (160-400) 01/22/21 15: MPV 10.6 fL (9.4-12.4) 01/22/21 15: Immature Gran % (Auto) 0.4 % (0.0-0.4) 01/22/21 15: Neut % (Auto) 54.8 % (45-73) 01/22/21 15: Lymph % (Auto) 35.2 % (20-40) 01/22/21 15: [place] % (Auto) 7.7 % (2-11) 01/22/21 15: Eos % (Auto) 1.5 % (0-4) 01/22/21 15: Baso % (Auto) 0.4 % (0-2) 01/22/21 15:27 Lymph # (Auto) 3.3 X10*3/uL (1.2-4.9) 01/22/21 15:27 [place] # (Auto) 0.7 X10*3/uL (0.1-1.2) 01/22/21 15:27 Eos # (Auto) 0.1 X10*3/uL (0.0-0.4) 01/22/21 15: Baso # (Auto) 0.0 X10*3/uL (0.0-0.2) 01/22/21 15:27 Abs Immat Gran (auto) 0.04 X10*3/uL (0.00-0.03) H 01/22/21 15: Absolute Neuts (auto) 5.2 X10*3/uL (2.0-8.3) 01/22/21 15: Absolute Nucleated RBC 0.000 X10*3/uL (0.0-0.012) 01/22/21 15: Nucleated RBC % (auto) 0.0 /100WBC (0.0-0.2) 01/22/21 15: Sodium 140 mmol/L (135-145) 01/22/21 15: Potassium 4.0 mmol/L (3.3-5.1) 01/22/21 15: Chloride 104 mmol/L (96-108) 01/22/21 15: Carbon Dioxide 28 mmol/L (22-29) 01/22/21 15: Anion Gap 12 (12-20) 01/22/21 15:27 BUN 13 mg/dL (9-16) 01/22/21 15:27 Creatinine 0.84 mg/dL (0.5-1.4) 01/22/21 15:27 Estim Creat Clear Calc 81.4 01/22/21 15:27 Estimated GFR > 60 01/22/21 15: Random Glucose 220 mg/dL (60-115) H 01/22/21 15:27 Calcium 9.1 mg/dL (8.4-10.2) 01/22/21 15:27 Total Bilirubin 0.6 mg/dL (0.0-1.0) 01/22/21 15: AST 21 U/L (5-37) 01/22/21 15:27 ALT 23 U/L (0-40) 01/22/21 15:27 Alkaline Phosphatase 204 U/L (39-117) H 01/22/21 15:27 Total Protein 7.7 g/dL (6.5-8.0) 01/22/21 15:27 Albumin 4.3 g/dL (3.5-5.0) 01/22/21 15:27 Progress Note: A/P (1) Carcinoma of thoracic esophagus Status: Acute Assessment and plan: This is a pleasant 69-year-old gentleman diagnosed with carcinoma of the esophagus. Upper endoscopy showed: 4 cm mass extending from the EG junction to 1-2 cm below the EG junction. Pathology: Superficial fragments of adenocarcinoma, moderately differentiated, arising in a background of Mcintyre's esophagus. HER2: 0. Endoscopic ultrasound May 10 2019: T3, N0 lesion. PET scan revealed disease confined to the esophagus. He underwent neoadjuvant chemoradiation. He received carboplatin and Taxol weekly. PET scan on 10/04/2019 showed: Mild improvement in uptake in the distal esophagus and fundus of the stomach. C6 cervical vertebra showed uptake question of a lesion. Stable small right lower lung nodule. No uptake. Bone scan from 10/22 revealed: Mild abnormalities in several ribs likely representing chronic rib fractures an ongoing bone remodeling Mild on specific abnormalities is all related to arthritis. He saw Dr. Bonilla. He did offer surgical resection however patient was concerned about the risks involved and so declined. EGD from 12/07/2019: EG junction was located at 39 cm. There were 2 areas of ulceration 1 measuring 10 mm and 1 measuring 5 mm at the EG junction. The previous tumor was not seen. No stricture. Pathology: GE junction mucosa with moderate acute and chronic inflammation, mucin and detached fragments of granulation tissue consistent with ulcer and esophagitis, negative for dysplasia or malignancy. CT scan from 01/21 revealed: Stable pulmonary nodules compared to 03/15 019. He had an upper endoscopy by Dr. Mancini in November of 2019 which revealed: The EG junction was located at 39 cm. There were 2 areas of ulceration, one measuring approximately 10 mm and one measuring approximately 5 mm at the EG junction. The previous tumor was not seen. The scope passed easily into the stomach. There was no stricture. Pathology: A. GE junction, biopsies: Gastroesophageal junctional mucosa with moderate acute and chronic inflammation, mucin and detached fragments of granulation tissue consistent with ulcer and esophagitis; negative for intestinal metaplasia; negative for dysplasia or malignancy. He has been feeling really well. He denies any further dysphagia. He is eating very well and gaining weight. His labs are all normal. PLAN: To continue to monitor him along. He will continue to follow up with GI. He will return in 3 months for a follow-up visit. Thank you, CC: Dr. Hooks. Dr. Stuart. . - Time Spent With Patient Total time spent is greater than 50% in coordination of care (as documented) at patient's floor/unit and/or counseling patient: 25 - 35 minutes
--- NOTE | 2021-05-08 16:00 | MHC.HEMONC ---
pt contacted for Telehealth visit. He is doing well. He has no new meds and reports a small decrease in appetite. His weight is unchanged. He is unsure of his medications for reconciliation as his dtr gets them for him. Dr Anna to call him next.
--- NOTE | 2021-05-08 16:14 | P.PNHO_ITS ---
[facility] Telehealth - Telehealth Location of Provider rendering services: Hem/onc office. Location of Patient: Home. Patient Identification confirmed using: Name, : Yes Telehealth Method: Via telephone. Patient verbally consented to treatment: Yes. Patient verbally consented to billing insurance company: Yes Patient informed of any privacy concerns related to visit: Yes Medical Summary - Medical Summary Date of Service: 05/08/21 Chief complaint: Follow-up for colon CA esophagus. 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 Endoscopic ultrasound on May 10: Ulcerated and friable partially obstructing mass extending from the GE junction through the cardia. Mass is circumferential hypoechoic fairly well some come scribed and rather homogeneous. Penetrates the muscularis propria. Making it a T3 lesion. Numerous small shotty lymph node largest being 7.5 mm not pathologic by size criteria. Tumor extends onto the gastric cardia. Celiac adenopathy could not be assessed. CURRENT THERAPY: Started radiation: July [id number]. Completed low-dose carboplatin and Taxol weekly 08/13/2019. Interval History Interval history: This is a pleasant 70-year-old gentleman with whom a tele- visit, was held. He has been doing very well. He has no difficulty swallowing. He enjoys a good appetite. He has been eating all sorts of food. He denies any dysphagia or odynophagia. No headache no dizziness. He denies chest pain or trouble breathing. Denies Abdominal pain nausea or vomiting no heartburn indigestion. Bowels are working without any gross blood in it. He has a good appetite. He has gained weight. He has good energy level. No fever nor chills. He is in good spirits. Rest of the review of systems is unremarkable. Review of Systems - Constitutional Reports no additional constitutional complaints - Eyes Reports no additional eye complaints - ENT Reports no additional ear, nose, mouth, and throat complaints - Cardiovascular Reports no additional cardiovascular complaints - Respiratory Reports no additional respiratory complaints - Gastrointestinal Reports no additional gastrointestinal complaints - Genitourinary Genitourinary: Reports no additional male genitourinary complaints - Musculoskeletal Reports no additional musculoskeletal complaints - Integumentary/Breasts Skin/Breast: Reports no additional skin complaints - Neurologic Reports no additional neurologic complaints, Denies behavioral changes, Denies weakness - Psychiatric Reports no additional psychiatric complaints - Endocrine Reports no additional endocrine complaints - Hematologic/Lymphatic Reports no additional hematologic/lymphatic complaints - Allergic/Immunologic Reports no additional allergic/immunologic complaints Oncology Screenings - ECOG Performance Status ECOG Performance Status: 1 Home Medications and Allergies Allergies Allergy/AdvReac Type Severity Reaction Status Date / Time No Known Allergies Allergy Verified 08/21/20 09:24 Exam Vital signs: Vital Signs Temp 99.2 F 01/22/21 15:12 Pulse 107 H 01/22/21 15:12 Resp 12 01/22/21 15:12 BP 163/88 H 01/22/21 15:12 Pulse Ox 99 01/22/21 15:12 Weight 72 kg Body Mass Index 24.1 - Constitutional Present: no acute distress - Routine HEENT Exam Head: Present: normal inspection - Routine Neck Exam Present: full ROM - Routine Respiratory Exam Present: CTAB - Routine Cardiovascular Exam Cardiovascular: Present: RRR, S1, S2 - Routine Abdominal Exam Present: soft, nontender - Routine Extremities Exam Present: nontender - Routine Back/Spine/Pelvis Exam Back/Spine: Present: full ROM - Routine Skin Exam Present: intact - Routine Neurological Exam Present: alert, oriented X3 - Routine Psychiatric Exam Present: normal affect Data - Labs CBC & Chem 7: 01/22/21 15:27 01/22/21 15:27 Labs: 01/22/21 15:27 Complete Blood Count Auto Diff Routine Laboratory Last Values WBC 9.5 X10*3/uL (4.8-10.8) 01/22/21 15:27 RBC 5.02 X10*6/uL (4.60-5.80) 01/22/21 15:27 Hgb 14.4 g/dl (14.0-18.0) 01/22/21 15:27 Hct 44.1 % (42-52) 01/22/21 15:27 MCV 87.8 fL (80-98) 01/22/21 15:27 MCH 28.7 pg (27.0-33.0) 01/22/21 15:27 MCHC 32.7 g/dl (31.0-36.0) 01/22/21 15:27 RDW 13.5 % (11.0-16.0) 01/22/21 15:27 Plt Count 290 X10*3/uL (160-400) 01/22/21 15:27 MPV 10.6 fL (9.4-12.4) 01/22/21 15: Immature Gran % (Auto) 0.4 % (0.0-0.4) 01/22/21: Neut % (Auto) 54.8 % (45-73) 01/22/21 15: Lymph % (Auto) 35.2 % (20-40) 01/22/21: [place] % (Auto) 7.7 % (2-11) 01/22/21: Eos % (Auto) 1.5 % (0-4) 01/22/21 15: Baso % (Auto) 0.4 % (0-2) 01/22/21: Lymph # (Auto) 3.3 X10*3/uL (1.2-4.9) 01/22/21: [place] # (Auto) 0.7 X10*3/uL (0.1-1.2) 01/22/21: Eos # (Auto) 0.1 X10*3/uL (0.0-0.4) 01/22/21 15: Baso # (Auto) 0.0 X10*3/uL (0.0-0.2) 01/22/21: Abs Immat Gran (auto) 0.04 X10*3/uL (0.00-0.03) H 01/22/21 15: Absolute Neuts (auto) 5.2 X10*3/uL (2.0-8.3) 01/22/21: Absolute Nucleated RBC 0.000 X10*3/uL (0.0-0.012) 01/22/21 15: Nucleated RBC % (auto) 0.0 /100WBC (0.0-0.2) 01/22/21 15: Sodium 140 mmol/L (135-145) 01/22/21 15: Potassium 4.0 mmol/L (3.3-5.1) 01/22/21 15: Chloride 104 mmol/L (96-108) 01/22/21 15: Carbon Dioxide 28 mmol/L (22-29) 01/22/21 15: Anion Gap 12 (12-20) 01/22/21 15:27 BUN 13 mg/dL (9-16) 01/22/21 15:27 Creatinine 0.84 mg/dL (0.5-1.4) 01/22/21 15:27 Estim Creat Clear Calc 81.4 01/22/21 15:27 Estimated GFR > 60 01/22/21 15:27 Random Glucose 220 mg/dL (60-115) H 01/22/21 15:27 Calcium 9.1 mg/dL (8.4-10.2) 01/22/21 15: Total Bilirubin 0.6 mg/dL (0.0-1.0) 01/22/21 15:27 AST 21 U/L (5-37) 01/22/21 15: ALT 23 U/L (0-40) 01/22/21 15: Alkaline Phosphatase 204 U/L (39-117) H 01/22/21 15:27 Total Protein 7.7 g/dL (6.5-8.0) 01/22/21 15: Albumin 4.3 g/dL (3.5-5.0) 01/22/21 15:27 Progress Note: A/P (1) Carcinoma of thoracic esophagus Status: Acute Assessment and plan: This is a pleasant 69-year-old gentleman diagnosed with carcinoma of the esoph gina. Upper endoscopy showed: 4 cm mass extending from the EG junction to 1-2 cm below the EG junction. Pathology: Superficial fragments of adenocarcinoma, moderately differentiated, arising in a background of Mcintyre's esophagus. HER2: 0. Endoscopic ultrasound May 10 2019: T3, N0 lesion. PET scan revealed disease confined to the esophagus. He underwent neoadjuvant chemoradiation. He received carboplatin and Taxol weekly. PET scan on 10/04/2019 showed: Mild improvement in uptake in the distal esophagus and fundus of the stomach. C6 cervical vertebra showed uptake question of a lesion. Stable small right lower lung nodule. No uptake. Bone scan from 10/22 revealed: Mild abnormalities in several ribs likely representing chronic rib fractures an ongoing bone remodeling Mild on specific abnormalities is all related to arthritis. He saw Dr. Bonilla. He did offer surgical resection however patient was concerned about the risks involved and so declined. EGD from 12/07/2019: EG junction was located at 39 cm. There were 2 areas of ulceration 1 measuring 10 mm and 1 measuring 5 mm at the EG junction. The previous tumor was not seen. No stricture. Pathology: GE junction mucosa with moderate acute and chronic inflammation, mucin and detached fragments of granulation tissue consistent with ulcer and esophagitis, negative for dysplasia or malignancy. CT scan from 01/21 revealed: Stable pulmonary nodules compared to 03/15 019. He had an upper endoscopy by Dr. Mancini in November of 2019 which revealed: The EG junction was located at 39 cm. There were 2 areas of ulceration, one measuring approximately 10 mm and one measuring approximately 5 mm at the EG junction. The previous tumor was not seen. The scope passed easily into the stomach. There was no stricture. Pathology: A. GE junction, biopsies: Gastroesophageal junctional mucosa with moderate acute and chronic inflammation, mucin and detached fragments of granulation tissue consistent with ulcer and esophagitis; negative for intestinal metaplasia; negative for dysplasia or malignancy. He has been feeling really well. He denies any further dysphagia. He is eating very well and gaining weight. His labs are all normal. PLAN: To continue to monitor him along. He will continue to follow up with GI. He will return in 4 months for a follow-up visit. All his questions were answered to his satisfaction. 24 minutes was spent coordinating his care including the tele visit, review of labs, review of imaging and counseling the patient. Thank you, CC: Dr. Hooks. Dr. Stuart. Dr. Mancini. - Time Spent With Patient 15 - 24 minutes
[2021-09-28 09:40] LABS: MANUAL DIFF FLAG NO
[2021-09-28 09:47] LABS: Basophils Percent Auto 0.3 % (0-2); Eosinophils Absolute Auto 0.2 X10*3/uL (0.0-0.4); Eosinophils Percent Auto 1.4 % (0-4); Hematocrit 43.5 % (42.0-52.0); Hemoglobin 13.9 g/dl (14.0-18.0); Imm Gran Abs Auto 0.05 X10*3/uL (0.00-0.03); Imm Gran Pct Auto 0.5 % (0.0-0.4); Lymphocytes Absolute Auto 2.9 X10*3/uL (1.2-4.9); Lymphocytes Percent Auto 26.2 % (20-40); Mean Corpuscular Hemoglobin 28.4 pg (27.0-33.0); Mean Corpuscular Volume 88.8 fL (80.0-98.0); Mean Platelet Volume 10.1 fL (9.4-12.4); Monocytes Absolute Auto 0.7 X10*3/uL (0.1-1.2); Neutrophils Absolute Auto 7.2 x10*3/uL (2.0-8.3); Neutrophils Percent Auto 65.6 % (45-73); Platelet Count 432 X10*3/uL (160-400)
[2021-09-28 10:05] LABS: Alanine Aminotransferase 25 U/L (0-40); Alkaline Phosphatase 202 U/L (39-117); Anion Gap 17 (12-20); Aspartate Amino Transferase 25 U/L (5-37); Bilirubin Total 0.7 mg/dL (0.0-1.0); Blood Urea Nitrogen 11 mg/dL (9-16); Calcium 9.2 mg/dL (8.4-10.2); Carbon Dioxide 25 mmol/L (22-29); Chloride 101 mmol/L (96-108); Creatinine Clr Calc Pharmacy 75.7; Estimated Glomerular Filt Rate > 60; Glucose Random 440 mg/dL (60-115); Potassium 4.6 mmol/L (3.3-5.1); Sodium 138 mmol/L (135-145)
--- NOTE | 2021-09-28 10:07 | MHC.HEMONC ---
Call from Chemistry to report a critical glucose of 440. Dr Anna notified.
[2021-09-28 10:26] VITALS: BP 140/74; PULSE 117; RESP 18; TEMP 36.2; O2SAT 99; BMI 23.2
--- NOTE | 2021-09-28 11:19 | P.PNHO_ITS ---
Medical Summary - Medical Summary Date of Service: 09/28/21 Chief complaint: Follow-up for colon carcinoma esophagus. 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 Endoscopic ultrasound on May 10: Ulcerated and friable partially obstructing mass extending from the GE junction through the cardia. Mass is circumferential hypoechoic fairly well some come scribed and rather homogeneous. Penetrates the muscularis propria. Making it a T3 lesion. Numerous small shotty lymph node largest being 7.5 mm not pathologic by size criteria. Tumor extends onto the gastric cardia. Celiac adenopathy could not be assessed. CURRENT THERAPY: Started radiation: July 032018. Completed low-dose carboplatin and Taxol weekly 08/13/2019. Interval History Interval history: This is a pleasant 70-year-old gentleman here for a follow-up visit. Over the past couple of weeks he has noted a cough. Brings up clear sputum. He has been using DayQuil and NyQuil for symptoms. He denies any chest pain shortness of breath nor fever chills. He has been doing fairly well, however over the past month or so his appetite has declined. He feels it is related to the new insulin that he was switched to. Actually today he did not use his insulin in the blood sugar was noted to be elevated. He has to take 40 before breakfast and 22 in the evening before dinner. He has no difficulty swallowing. He enjoys a good appetite. He has been eating all sorts of food. He denies any dysphagia or odynophagia. No headache no dizziness. He denies chest pain or trouble breathing. Denies Abdominal pain nausea or vomiting. He gets occasional heartburn/ indigestion, for which she takes omeprazole. Bowels are working without any gross blood in it. He has a good appetite. He has lost weight. He has good energy level. He is in good spirits. Rest of the review of systems is unremarkable. Review of Systems - Constitutional Reports no additional constitutional complaints - Eyes Reports no additional eye complaints - ENT Reports no additional ear, nose, mouth, and throat complaints - Cardiovascular Reports no additional cardiovascular complaints - Respiratory Reports no additional respiratory complaints - Gastrointestinal Reports no additional gastrointestinal complaints - Genitourinary Genitourinary: Reports no additional male genitourinary complaints - Musculoskeletal Reports no additional musculoskeletal complaints - Integumentary/Breasts Skin/Breast: Reports no additional skin complaints - Neurologic Reports no additional neurologic complaints, Denies behavioral changes, Denies weakness - Psychiatric Reports no additional psychiatric complaints - Endocrine Reports no additional endocrine complaints - Hematologic/Lymphatic Reports no additional hematologic/lymphatic complaints - Allergic/Immunologic Reports no additional allergic/immunologic complaints [facility] Medical History: Medical History (Last Reviewed 09/28/21 @ 10:31 by Jacob Tracy RN) Adenocarcinoma of cardio-esophageal junction Anxiety Benign essential hypertension Constipation Depression Diabetes type 2, uncontrolled Diabetic nephropathy associated with type 2 diabetes mellitus Diabetic neuropathy Diabetic neuropathy associated with type 2 diabetes mellitus Dyslipidemia HLD (hyperlipidemia) Hypertension Keratotic lesion Left below-knee [facility] (current) use of insulin Pure hypercholesterolemia Type 2 diabetes mellitus with diabetic polyneuropathy Vitamin D deficiency Functional capacity: uses cane/walker Patient : No Family History: Family History (Last Reviewed 09/28/21 @ 10:31 by Jacob Tracy, KAREN) Father Diabetes Hypertension Mother No problems noted. Surgical History: Surgical History (Last Reviewed 09/28/21 @ 10:31 by Jacob Tracy RN) History of atherectomy History of left below knee amputation Status post below-knee amputation of left lower extremity Social History: Social History (Last Reviewed 09/28/21 @ 10:31 by Jacob Tarcy RN) Alcohol History: Alcohol intake: former Tobacco History: Patient Tobacco Use Status: Never used Tobacco Advance Directives: Advance Directives Date on File: 08/19/20 Nutrition Assessment: Patient : No Oncology Screenings - ECOG Performance Status ECOG Performance Status: 0 Home Medications and Allergies Home Medications Medication Instructions Recorded Confirmed Type insulin aspar prot-insulin aspart See Rx Instructions SUBCUT BID ml 07/06/21 09/28/21 History 100 unit/mL (70-30) subcutaneous pen (Novolog Mix 70-30FlexPen U-100) omeprazole 20 mg capsule,delayed 20 mg PO BID PRN 09/28/21 09/28/21 History release Allergies Allergy/AdvReac Type Severity Reaction Status Date / Time No Known Allergies Allergy Verified 07/06/21 10:25 Exam Vital signs: Vital Signs Temp 97.2 F 09/28/21 10:26 Pulse 117 H 09/28/21 10:26 Resp 18 09/28/21 10:26 BP 140/74 H 09/28/21 10:26 Pulse Ox 99 09/28/21 10:26 Intake & Output 09/27/21 09/28/21 09/28/21 18:59 06:59 18:59 Other: Weight 69.4 kg [place] Weight in Grams 12869 Weight 69.4 kg Body Mass Index 23.2 - Constitutional Present: no acute distress - Routine HEENT Exam Head: Present: normal inspection Eye: Present: normal appearance ENT: Present: mucous membranes moist - Routine Neck Exam Present: full ROM - Routine Respiratory Exam Present: CTAB - Routine Cardiovascular Exam Cardiovascular: Present: RRR, S1, S2 - Routine Abdominal Exam Present: soft, nontender - Routine Extremities Exam Present: nontender - Routine Back/Spine/Pelvis Exam Back/Spine: Present: full ROM - Routine Skin Exam Present: intact - Routine Neurological Exam Present: alert, oriented X3 - Routine Psychiatric Exam Present: normal affect Data - Labs CBC & Chem 7: 09/28/21 09:27 09/28/21 09:27 Assessment and Plan Patient Active problem list reviewed?: Yes (1) Carcinoma of thoracic esophagus Status: Acute Assessment and plan: This is a pleasant 69-year-old gentleman diagnosed with carcinoma of the esophagus. Upper endoscopy showed: 4 cm mass extending from the EG junction to 1-2 cm below the EG junction. Pathology: Superficial fragments of adenocarcinoma, moderately differentiated, arising in a background of Mcintyre's esophagus. HER2: 0. Endoscopic ultrasound May 10 2019: T3, N0 lesion. PET scan revealed disease confined to the esophagus. He underwent neoadjuvant chemoradiation. He received carboplatin and Taxol weekly. PET scan on 10/04/2019 showed: Mild improvement in uptake in the distal esophagus and fundus of the stomach. C6 cervical vertebra showed uptake question of a lesion. Stable small right lower lung nodule. No uptake. Bone scan from 10/22 revealed: Mild abnormalities in several ribs likely representing chronic rib fractures an ongoing bone remodeling Mild on specific abnormalities is all related to arthritis. He saw Dr. Bonilla. He did offer surgical resection however patient was concerned about the risks involved and so declined. EGD from 12/07/2019: EG junction was located at 39 cm. There were 2 areas of ulceration 1 measuring 10 mm and 1 measuring 5 mm at the EG junction. The previous tumor was not seen. No stricture. Pathology: GE junction mucosa with moderate acute and chronic inflammation, mucin and detached fragments of granulation tissue consistent with ulcer and esophagitis, negative for dysplasia or malignancy. CT scan from 01/21 revealed: Stable pulmonary nodules compared to 03/15 019. He had an upper endoscopy by Dr. Mancini in November of 2019 which revealed: The EG junction was located at 39 cm. There were 2 areas of ulceration, one measuring approximately 10 mm and one measuring approximately 5 mm at the EG junction. The previous tumor was not seen. The scope passed easily into the stomach. There was no stricture. Pathology: A. GE junction, biopsies: Gastroesophageal junctional mucosa with moderate acute and chronic inflammation, mucin and detached fragments of granulation tissue consistent with ulcer and esophagitis; negative for intestinal metaplasia; negative for dysplasia or malignancy. He has been feeling reasonably well. He denies any further dysphagia. However lately he has had a cough with sputum. His appetite is not that good and he has been losing weight. His labs are all normal. PLAN: I will refer him back to Dr. Mancini to consider an upper endoscopy. In the meantime, I will proceed with a CT of the chest for further evaluation. The plan is to continue to monitor him along. He will return in 6 months for a follow-up visit. All his and his daughter's questions were answered to his satisfaction. Thank you, CC: Dr. Hooks. Dr. Stuart. Dr. Mancini. - Time Spent With Patient Time Spent with Patient (in minutes): 30
--- NOTE | 2021-09-28 15:43 | MHC.HEMONC ---
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 Original Note: Pt arrived for sched Onc f/u visit, in no apparent distress, tachy w/ pulse of 115, otherwise VSS. Pt's labs were drawn and reviewed. Pt's serum glucose resulted at 440. Nurse reviewed pt's med hx and updated med list, pt revealed he had not taken his scheduled 70/30 insulin this morning. Pt denied any dysphagia, reported stable appetite, did report new intermittent cough in past 2 weeks, productive of thick white/clear sputum, but denied any pain or SOB. Dr. Anna was in to see pt, sched GI f/u w/ Dr. Mancini for 01/07/22, also CT scan was ordered. Pt was discharged w/ next scheduled Onc f/u on 04/01/22.
--- NOTE | 2021-11-24 10:47 | PM.HEMONCPN ---
Medical Summary - Medical Summary Date of Service: 11/24/21 Chief complaint: FOLLOW-UP FOR: RECURRENT CARCINOMA ESOPHAGUS. 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 Endoscopic ultrasound on May 10: Ulcerated and friable partially obstructing mass extending from the GE junction through the cardia. Mass is circumferential hypoechoic fairly well circumscribed and rather homogeneous. Penetrates the muscularis propria. Making it a T3 lesion. Numerous small shotty lymph node largest being 7.5 mm not pathologic by size criteria. Tumor extends onto the gastric cardia. Celiac adenopathy could not be assessed. CURRENT THERAPY: Started radiation: July [id number]. Completed low-dose carboplatin and Taxol weekly 08/13/2019. Now with disease recurrence. Interval History Interval history: This is a pleasant 71 year-old gentleman here for a follow-up visit. Patient was seen here back in mid September. He complained that over the past couple of weeks he noted a cough. Would bring up clear sputum. He had been using DayQuil and NyQuil for symptoms. His appetite had declined. He denied obvious dysphagia or odynophagia. He had a CT scan of the chest on 10/08/2021 which revealed: Limited evaluation of pulmonary nodules due to artifact from respiratory motion. The 3 mm calcified right upper lobe nodule is stable. Other previously identified pulmonary nodules are not identified. Interval increase in wall thickening of the distal thoracic esophagus, GE junction and proximal stomach compared to January 2020 exam. On November 17, he underwent an upper endoscopy by Dr. Mancini which revealed: Esophagus: There was ulceration and friability with heaped up mucosa beginning at about 34 cm and extending to the EG junction at 36 cm and into the stomach for approximately 1 cm to 2 cm below this. Biopsies were obtained from the abnormal mucosa. The mucosa was ulcerated and friable with heaped up margins suspicious for recurrent tumor as opposed to just changes from his previous chemoradiation treatments. The scope was easily passed into the stomach with minimal narrowing at the EG junction. Pathology revealed: Superficial fragments of adenocarcinoma, poorly differentiated from EG junction mass, 36 cm, 34 cm. He is now here for a follow-up visit. He tells me that he has had some difficulty swallowing lately. It is mostly to solids. Liquids go down easily. It is a level 6 on 1-10 scale. Sometimes while eating he has a choking sensation. He is mostly taking soft diet including oatmeal, soups and rice. He tries to avoid chicken since it causes acid reflux. No headache no dizziness. He denies chest pain or trouble breathing. Denies abdominal pain nausea or vomiting. He gets occasional heartburn/ indigestion, for which he takes omeprazole. Bowels are working without any gross blood in it. He does not have a good appetite. He has lost weight, another 5 lb since his last visit. He has low energy level. He is in good spirits. Rest of the review of systems is unremarkable. Review of Systems - Constitutional Reports system reviewed and no additional complaints, except as documented - Eyes Reports system reviewed and no additional complaints, except as documented - ENT Reports system reviewed and no additional complaints, except as documented - Cardiovascular Reports system reviewed and no additional complaints, except as documented - Respiratory Reports no additional respiratory complaints - Gastrointestinal Reports system reviewed and no additional complaints, except as documented, Reports dyspepsia, Reports heartburn, Denies coffee ground vomit, Denies loose stools, Denies vomiting Comments: Dysphagia. - Genitourinary Genitourinary: Reports no additional male genitourinary complaints - Musculoskeletal Reports system reviewed and no additional complaints, except as documented - Integumentary/Breasts Skin/Breast: Reports no additional skin complaints - Neurologic Reports system reviewed and no additional complaints, except as documented, Denies behavioral changes, Denies weakness - Psychiatric Reports system reviewed and no additional complaints, except as documented - Endocrine Reports no additional endocrine complaints - Hematologic/Lymphatic Reports system reviewed and no additional complaints, except as documented - Allergic/Immunologic Reports system reviewed and no additional complaints, except as documented [facility] Medical History: Medical History (Last Reviewed 11/27/21 @ 11:20 by Bee Stuart MD) Adenocarcinoma of cardio-esophageal junction Anxiety Benign essential hypertension Constipation Depression Diabetes type 2, uncontrolled Diabetic nephropathy associated with type 2 diabetes mellitus Diabetic neuropathy Diabetic neuropathy associated with type 2 diabetes mellitus Dyslipidemia HLD (hyperlipidemia) Hypertension Keratotic lesion Left below-knee amputee [facility] (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 Surgical History: Surgical History (Last Reviewed 11/27/21 @ 11:20 by Bee Stuart MD) History of atherectomy History of left below knee amputation Status post below-knee amputation of left lower extremity Social History: Social History (Last Reviewed 11/27/21 @ 11:20 by Bee Stuart MD) Living Situation History[facility] Tobacco History: Patient Tobacco Use Status: Never used Tobacco Second Hand Smoke Exposure: Yes Advance Directives: Advance Directives Date on File: 08/19/20 Occupation Assessmet: service: No Current occupational status: retired Current occupational status: disabled Oncology Screenings - ECOG Performance Status ECOG Performance Status: 1 Home Medications and Allergies Home Medications Medication Instructions Recorded Confirmed Type insulin aspar prot-insulin aspart See Rx Instructions SUBCUT BID ml 07/06/21 11/27/21 History 100 unit/mL (70-30) subcutaneous pen (Novolog Mix 70-30FlexPen U-100) Allergies Allergy/AdvReac Type Severity Reaction Status Date / Time No Known Allergies Allergy Verified 11/27/21 10:58 Exam Vital signs: Vital Signs Temp 97.2 F 09/28/21 10:26 Pulse 117 H 09/28/21 10:26 Resp 18 09/28/21 10:26 BP 140/74 H 09/28/21 10:26 Pulse Ox 99 09/28/21 10:26 Weight 69.4 kg BMI result Body Mass Index 23.2 - Constitutional Present: no acute distress - Routine HEENT Exam Head: Present: normal inspection Eye: Present: normal appearance ENT: Present: mucous membranes moist - Routine Neck Exam Present: full ROM - Routine Respiratory Exam Present: CTAB - Routine Cardiovascular Exam Cardiovascular: Present: RRR, S1, S2 - Routine Abdominal Exam Present: soft, nontender - Routine Extremities Exam Present: nontender - Routine Back/Spine/Pelvis Exam Back/Spine: Present: full ROM - Routine Skin Exam Present: intact - Routine Neurological Exam Present: alert, oriented X3 - Routine Psychiatric Exam Present: normal affect Data - Labs CBC & Chem 7: 11/24/21 10:45 11/24/21 10:45 Assessment and Plan Patient Active problem list reviewed?: Yes (1) Carcinoma of thoracic esophagus Status: Acute Assessment and plan: This is a pleasant 71 year-old gentleman diagnosed with Carcinoma of the Esophagus, back in summer. Upper endoscopy revealed a 4 cm mass extending from the EG junction to 1-2 cm below the EG junction. Pathology: Superficial fragments of adenocarcinoma, moderately differentiated, arising in a background of Mcintyre's esophagus. HER2: 0. Endoscopic ultrasound May 10 2019: T3, N0 lesion. PET scan revealed disease confined to the esophagus. He underwent neoadjuvant chemoradiation. He received carboplatin and Taxol weekly. PET scan on 10/04/2019 showed: Mild improvement in uptake in the distal esophagus and fundus of the stomach. C6 cervical vertebra showed uptake question of a lesion. Stable small right lower lung nodule. No uptake. Bone scan from 10/22/19 revealed: Mild abnormalities in several ribs likely representing chronic rib fractures an ongoing bone remodeling. Mild on specific abnormalities is all related to arthritis. He saw Dr. Stuart. He did offer surgical resection however patient was concerned about the risks involved and so declined. EGD from 12/07/2019: EG junction was located at 39 cm. There were 2 areas of ulceration 1 measuring 10 mm and 1 measuring 5 mm at the EG junction. The previous tumor was not seen. No stricture. Pathology: GE junction mucosa with moderate acute and chronic inflammation, mucin and detached fragments of granulation tissue consistent with ulcer and esophagitis, negative for dysplasia or malignancy. CT scan from 01/22/20 revealed: Stable pulmonary nodules compared to 03/15. He had an upper endoscopy by Dr. Mancini in November of 2019 which revealed: The EG junction was located at 39 cm. There were 2 areas of ulceration, one measuring approximately 10 mm and one measuring approximately 5 mm at the EG junction. The previous tumor was not seen. The scope passed easily into the stomach. There was no stricture. Pathology: A. GE junction, biopsies: Gastroesophageal junctional mucosa with moderate acute and chronic inflammation, mucin and detached fragments of granulation tissue consistent with ulcer and esophagitis; negative for intestinal metaplasia; negative for dysplasia or malignancy. He has been feeling reasonably well. He denies any further dysphagia. However lately he has had a cough with sputum. His appetite is not that good and he has been losing weight. He had a CT scan of the chest on 10/08/2021 which revealed: Limited evaluation of pulmonary nodules due to artifact from respiratory motion. The 3 mm calcified right upper lobe nodule is stable. Other previously identified pulmonary nodules are not identified. Interval increase in wall thickening of the distal thoracic esophagus, GE junction and proximal stomach compared to January 2020 exam. I referred him to Dr. Mancini, who proceeded with an upper endoscopy, on 11/17 which revealed: On November 17, he underwent an upper endoscopy by Dr. Mancini which revealed: Esophagus: There was ulceration and friability with heaped up mucosa beginning at about 34 cm and extending to the EG junction at 36 cm and into the stomach for approximately 1 cm to 2 cm below this. Biopsies were obtained from the abnormal mucosa. The mucosa was ulcerated and friable with heaped up margins suspicious for recurrent tumor as opposed to just changes from his previous chemoradiation treatments. The scope was easily passed into the stomach with minimal narrowing at the EG junction. Pathology revealed: Superficial fragments of adenocarcinoma, poorly differentiated from EG junction mass, 36 cm, 34 cm. HER2/April: Negative. CEA level: 12.30. I shared the results with him and his daughter's today. I offered them systemic chemotherapy with FOLFOX/XELOX plus/minus, nivolumab based chemotherapy.(based upon the PDL1 status.) They are going to discuss it with the family and get back to me about their decision. In the meantime will have him consult with Dr. Stuart, to get his opinion and to see if a stent would be feasible. He has an appointment this coming Tuesday. PLAN: In the meantime, I will proceed with PDL1 testing. There were given written information about the chemotherapy regimens. Will have a Port-A-Cath placed to facilitate the chemotherapy. He will return in a couple of weeks for a follow-up visit. All his and his daughter's questions were answered to his satisfaction. Thank you, CC: Dr. Hooks. Dr. Stuart. Dr. Mancini. - Time Spent With Patient Time Spent with Patient (in minutes): 35
[2021-11-24 10:49] LABS: MANUAL DIFF FLAG NO
[2021-11-24 10:51] VITALS: BP 112/57; PULSE 108; RESP 18; TEMP 36.7; O2SAT 99
[2021-11-24 11:00] LABS: Basophils Percent Auto 0.3 % (0-2); Eosinophils Absolute Auto 0.1 X10*3/uL (0.0-0.4); Eosinophils Percent Auto 0.8 % (0-4); Hematocrit 38.9 % (42.0-52.0); Hemoglobin 12.2 g/dl (14.0-18.0); Imm Gran Abs Auto 0.03 X10*3/uL (0.00-0.03); Imm Gran Pct Auto 0.3 % (0.0-0.4); Lymphocytes Percent Auto 27.2 % (20-40); Mean Corpuscular HGB Conc 31.4 g/dl (31.0-36.0); Mean Corpuscular Hemoglobin 27.8 pg (27.0-33.0); Mean Corpuscular Volume 88.6 fL (80.0-98.0); Mean Platelet Volume 10.2 fL (9.4-12.4); Monocytes Absolute Auto 0.8 X10*3/uL (0.1-1.2); Monocytes Percent Auto 6.8 % (2-11); Neutrophils Absolute Auto 7.2 x10*3/uL (2.0-8.3); Neutrophils Percent Auto 64.6 % (45-73); Platelet Count 432 X10*3/uL (160-400); Red Blood Count 4.39 X10*6/uL (4.60-5.80); Red Cell Distribution Width 14.3 % (11.0-16.0); White Blood Count 11.2 X10*3/uL (4.8-10.8)
[2021-11-24 11:07] LABS: Alanine Aminotransferase 18 U/L (0-40); Albumin Level 3.6 g/dL (3.5-5.0); Alkaline Phosphatase 165 U/L (39-117); Anion Gap 12 (12-20); Aspartate Amino Transferase 18 U/L (5-37); Bilirubin Total 0.9 mg/dL (0.0-1.0); Blood Urea Nitrogen 11 mg/dL (9-16); Calcium 9.2 mg/dL (8.4-10.2); Carbon Dioxide 29 mmol/L (22-29); Chloride 103 mmol/L (96-108); Creatinine Clr Calc Pharmacy 79.3; Estimated Glomerular Filt Rate > 60; Glucose Random 267 mg/dL (60-115); Potassium 4.6 mmol/L (3.3-5.1); Sodium 139 mmol/L (135-145); Total Protein 7.4 g/dL (6.5-8.0)
[2021-11-24 11:54] VITALS: BMI 22.3
--- NOTE | 2021-11-24 15:16 | HO.HEMONCPA ---
NO PA REQUIRED FOR EMEND, OXALIPLATIN, LEUCOVORAN, & FLUOUOURACIL. DRUGS COVERED UNDER MEDICARE PART B BENEFITS.
--- NOTE | 2021-11-24 15:24 | MHC.HEMONC ---
Pt presented to Hem/Onc clinic for sched Onc f/u, along w/ his dtr Ada, VSS, labs drawn/reviewed, clinical summary updated. Pt and his dtr reported that he had chest CT on 10/07/21, and had an endoscopy and biopsy of his esophageal junction earlier this week w/ Dr. Mancini, hoping to discuss results w/ Dr. Anna. Pt states he feels well, does occasionally have some dysphagia or poor appetite, but has been drinking glucerna BID. Dr. Anna was updated, came in to speak w/ pt and his dtr, discussed different options for chemo tx for esophageal CA, including FOLFOX. Nurse printed info about tx and side effects for IV Fluorouracil, IV Leucovorin, IV Oxaliplatin, and Xeloda and shared w/ pt and his dtr Ada, explaining that he would require an implanted port to receive IV chemo tx. Nurse Yomi Gardner came in and introduced herself, booked pt and [employer] car for chemo teach this 11/27/21. Dr. Anna contacted Aracely at Dr. Stuart's office and booked him an appt also for 11/27/21 to discuss possibility of esophageal stent placement. Pt's dtr stated she would bring info home and discuss w/ family options of receiving oral PO Xeloda vs basic FOLFOX regimen. Dr. Anna ordered PET scan and IR port placement procedure, nurse provided printed orders for both to TYLER Feliciano for entry into order record changer assembler. Pt was d/c'd w/ his next Hem f/u booked in 10 days time, also added pt's dtr Ada and phone number to contact list.
--- NOTE | 2021-11-27 15:59 | MHC.HEMONC ---
Pt daughter called with port appt for next , 12/03/21 at 8:30. He will need to arrive at 7 am, have wheelchair van driver, NPO after midnight and no blood thinning agents. Pt dtr understands all of this.
[2021-12-01 10:30] VITALS: BP 96/65; PULSE 109; RESP 18; TEMP 36.4; O2SAT 98
[2021-12-01 15:12] VITALS: BMI 22.1
--- NOTE | 2021-12-01 16:40 | MHC.HEMONC ---
Pt and his 2 dtrs here following PET. He is here to review treatment to start with FOLFOX. He is scheduled for port and is aware of prep.I had Maddie [facility] Beef Specialist assist with education. Pt has had chemo/radiation in past. We reviewed treatment plan and infusions/home pump for 46hr with pt and his family. I reviewed common side effects: lowered counts, N/V, diarrhea, decreased appetite, mouth sores, neuropathy and cold intolerance. He was reminded when and how to call Clinic with symptoms. He signed consent and we are scheduled to start next Tuesday.
--- NOTE | 2021-12-04 11:01 | MHC.HEMONC ---
pt PDL1 positive so pt to be getting Nivilumab with c1d1 FOLFOX. Dtr informed. Kian aware. Ashanti to check into INs Auth. Dr Stuart also weighed in on pET results. No surgery at this time.
--- NOTE | 2021-12-04 11:33 | HO.HEMONCPA ---
NO PA REQUIRED FOR NIVOLUMAB. DRUG COVERED UNDER MEDICARE PART B BENEFITS
--- NOTE | 2021-12-07 08:42 | HE.ONCSEC ---
TOLD PATIENTS DAUGHTER WE NEED HIS INSURANCE CARD AND PHOTO ID , SHE SAID SHE DIDN'T HAVE IT ON HER SO SHE WILL BRING IT IN NEXT TIME .
[2021-12-07 09:29] VITALS: BP 108/65; PULSE 119; RESP 18; TEMP 36.8; O2SAT 96; BMI 21.7
[2021-12-07 09:33] LABS: MANUAL DIFF FLAG NO
[2021-12-07 09:34] LABS: Basophils Percent Auto 0.3 % (0-2); Eosinophils Absolute Auto 0.2 X10*3/uL (0.0-0.4); Eosinophils Percent Auto 1.5 % (0-4); Hematocrit 36.7 % (42.0-52.0); Hemoglobin 11.6 g/dl (14.0-18.0); Imm Gran Abs Auto 0.02 X10*3/uL (0.00-0.03); Imm Gran Pct Auto 0.2 % (0.0-0.4); Lymphocytes Absolute Auto 2.4 X10*3/uL (1.2-4.9); Lymphocytes Percent Auto 24.3 % (20-40); Mean Corpuscular HGB Conc 31.6 g/dl (31.0-36.0); Mean Corpuscular Hemoglobin 27.7 pg (27.0-33.0); Mean Corpuscular Volume 87.6 fL (80.0-98.0); Mean Platelet Volume 10.1 fL (9.4-12.4); Monocytes Absolute Auto 0.8 X10*3/uL (0.1-1.2); Monocytes Percent Auto 7.5 % (2-11); Neutrophils Absolute Auto 6.6 x10*3/uL (2.0-8.3); Neutrophils Percent Auto 66.2 % (45-73); Platelet Count 413 X10*3/uL (160-400); Red Blood Count 4.19 X10*6/uL (4.60-5.80); Red Cell Distribution Width 14.4 % (11.0-16.0)
[2021-12-07 09:52] LABS: Alanine Aminotransferase 9 U/L (0-40); Albumin Level 3.5 g/dL (3.5-5.0); Alkaline Phosphatase 139 U/L (39-117); Anion Gap 13 (12-20); Aspartate Amino Transferase 16 U/L (5-37); Bilirubin Total 0.7 mg/dL (0.0-1.0); Blood Urea Nitrogen 12 mg/dL (9-16); Calcium 8.9 mg/dL (8.4-10.2); Carbon Dioxide 26 mmol/L (22-29); Chloride 105 mmol/L (96-108); Estimated Glomerular Filt Rate > 60; Glucose Random 203 mg/dL (60-115); Potassium 3.8 mmol/L (3.3-5.1); Sodium 140 mmol/L (135-145); Total Protein 6.9 g/dL (6.5-8.0)
[2021-12-07 10:21] LABS: Bilirubin Direct 0.3 mg/dL (0.0-0.5)
[2021-12-07 10:40] LABS: Thyroid Stimulating Hormone 1.25 uIU/mL (0.32-4.0)
[2021-12-07] MEDS: Acetaminophen 325 MG TABLET 650 MG PO (10:53)
[2021-12-07] MEDS: dexAMETHasone sod phosphate/NS 12 MG/50 ML PIGGYBACK 200 MG IV (11:18)
[2021-12-07] MEDS: diphenhydrAMINE HCL 50 MG/ML VIAL 25 MG IVPUSH (11:38)
[2021-12-07] MEDS: Leucovorin Calcium 700 MG in Dextrose 5 % 250 ML 142.5 MG IV (12:48)
[2021-12-07] MEDS: OXALIplatin 100 MG, OXALIplatin 50 MG in Dextrose 5 % 500 ML 265 MG IV (12:49)
--- NOTE | 2021-12-07 14:37 | P.PNHO_ITS ---
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 Endoscopic ultrasound on May 10: Ulcerated and friable partially obstructing mass extending from the GE junction through the cardia. Mass is circumferential hypoechoic fairly well circumscribed and rather homogeneous. Penetrates the muscularis propria. Making it a T3 lesion. Numerous small shotty lymph node largest being 7.5 mm not pathologic by size criteria. Tumor extends onto the gastric cardia. Celiac adenopathy could not be assessed. CURRENT THERAPY: Started radiation: July [id number]. Completed low-dose carboplatin and Taxol weekly 08/13/2019. Now with disease recurrence. Here to start systemic chemotherapy with FOLFOX. Interval History Interval history: This is a pleasant 71 year-old gentleman here for a follow-up visit. He tells me that he has had some difficulty swallowing lately. It is mostly to solids. Liquids go down easily. It is a level 6 on 1-10 scale. Sometimes while eating he has a choking sensation. He is mostly taking soft diet including oatmeal, soups and rice. He tries to avoid chicken since it causes acid reflux. No headache no dizziness. He denies chest pain or trouble breathing. Denies abdominal pain nausea or vomiting. He gets occasional heartburn/ indigestion, for which he takes omeprazole. Bowels are working without any gross blood in it. He does not have a good appetite. He has lost weight, another 5 lb since his last visit. He has low energy level. He is in good spirits. Rest of the review of systems is unremarkable. Previous history: Patient was seen here back in mid . He complained that over the past couple of weeks he noted a cough. Would bring up clear sputum. He had been using DayQuil and NyQuil for symptoms. His appetite had declined. He denied obvious dysphagia or odynophagia. He had a CT scan of the chest on 10/08/2021 which revealed: Limited evaluation of pulmonary nodules due to artifact from respiratory motion. The 3 mm calcified right upper lobe nodule is stable. Other previously identified pulmonary nodules are not identified. Interval increase in wall thickening of the distal thoracic esophagus, GE junction and proximal stomach compared to January 2020 exam. On November 17, he underwent an upper endoscopy by Dr. Mancini which revealed: Esophagus: There was ulceration and friability with heaped up mucosa beginning at about 34 cm and extending to the EG junction at 36 cm and into the stomach for approximately 1 cm to 2 cm below this. Biopsies were obtained from the abnormal mucosa. The mucosa was ulcerated and friable with heaped up margins suspicious for recurrent tumor as opposed to just changes from his previous chemoradiation treatments. The scope was easily passed into the stomach with minimal narrowing at the EG junction. Pathology revealed: Superficial fragments of adenocarcinoma, poorly differentiated from EG junction mass, 36 cm, 34 cm. Review of Systems - Constitutional Reports system reviewed and no additional complaints, except as documented, Reports lack of energy, Reports weight loss - Eyes Reports system reviewed and no additional complaints, except as documented - ENT Reports system reviewed and no additional complaints, except as documented Comments: Dysphagia to solids. - Cardiovascular Reports system reviewed and no additional complaints, except as documented - Respiratory Reports no additional respiratory complaints - Gastrointestinal Reports system reviewed and no additional complaints, except as documented - Genitourinary Genitourinary: Reports no additional male genitourinary complaints - Musculoskeletal Reports system reviewed and no additional complaints, except as documented - Integumentary/Breasts Skin/Breast: Reports no additional skin complaints - Neurologic Reports system reviewed and no additional complaints, except as documented, Denies behavioral changes, Denies weakness - Psychiatric Reports system reviewed and no additional complaints, except as documented - Endocrine Reports no additional endocrine complaints - Hematologic/Lymphatic Reports system reviewed and no additional complaints, except as documented - Allergic/Immunologic Reports system reviewed and no additional complaints, except as documented [facility] Medical History: Medical History (Last Reviewed 11/27/21 @ 11:20 by Bee Stuart MD) Adenocarcinoma of cardio-esophageal junction Anxiety Benign essential hypertension Constipation Depression Diabetes type 2, uncontrolled Diabetic nephropathy associated with type 2 diabetes mellitus Diabetic neuropathy Diabetic neuropathy associated with type 2 diabetes mellitus Dyslipidemia HLD (hyperlipidemia) Hypertension Keratotic lesion 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 Surgical History: Surgical History (Last Reviewed 11/27/21 @ 11:20 by Bee Stuart MD) History of atherectomy History of left below knee amputation Status post below-knee amputation of left lower extremity Social History: Social History (Last Reviewed 11/27/21 @ 11:20 by Bee Stuart MD) Living Situation History: Housing: Condominium Tobacco History: Patient Tobacco Use Status: Never used Tobacco Second Hand Smoke Exposure: Yes Advance Directives: Advance Directives Date on File: 08/19/20 Nutrition Assessment: Patient : No Occupation Assessmet: service: No Current occupational status: retired Current occupational status: disabled Oncology Screenings - ECOG Performance Status ECOG Performance Status: 1 Home Medications and Allergies Current Medications: Current Medications Acetaminophen (Acetaminophen 325 Mg Tablet) 650 mg PO ONCE COURTNEY Stop: 12/07/21 23:59 Last Admin: 12/07/21 10:53 Dose: 650 mg Documented by: Diphenhydramine HCl (Diphenhydramine Hcl 50 Mg/Ml Vial) 25 mg IVPUSH ONCE COURTNEY Stop: 12/07/21 23:59 Last Admin: 12/07/21 11:38 Dose: 25 mg Documented by: Dexamethasone Sodium Phosphate (Decadron) 12 mg in 50 mls @ 200 mls/hr IV ONCE COURTNEY Stop: 12/07/21 23:59 Last Infusion: 12/07/21 11:35 Dose: Infused Documented by: Ondansetron HCl (Zofran) 16 mg in 50 mls @ 200 mls/hr IV ONCE COURTNEY Stop: 12/07/21 23:59 Last Infusion: 12/07/21 11:10 Dose: Infused Documented by: Fluorouracil 4,275 mg/ Sodium (Chloride) 92 mls @ 2 mls/hr IV ONCE COURTNEY Stop: 12/07/21 23:59 Fluorouracil 700 mg/ IV (Miscellaneous Supplies) 14 mls @ 0 mls/hr IVPUSH ONCE COURTNEY Stop: 12/07/21 23:59 Nivolumab 240 mg/ Sodium (Chloride) 124 mls @ 248 mls/hr IV ONCE COURTNEY Stop: 12/07/21 23:59 Last Admin: 12/07/21 12:03 Dose: 248 mls/hr Documented by: Oxaliplatin 100 mg/ (Oxaliplatin 50 mg/ Dextrose) 530 mls @ 265 mls/hr IV ONCE COURTNEY Stop: 01/24/22 23:59 Last Admin: 12/07/21 12:49 Dose: 265 mls/hr Documented by: Leucovorin Calcium 700 mg/ (Dextrose) 320 mls @ 142.5 mls/hr IV ONCE [facility] Last Admin: 12/07/21 12:48 Dose: 142.5 mls/hr Documented by: Home Medications Medication Instructions Recorded Confirmed Type insulin aspar See Rx Instructions 07/06/21 11/27/21 History prot-insulin aspart SUBCUT BID ml 100 unit/mL (70-30) subcutaneous pen (Novolog Mix 70-30FlexPen U-100) Allergies Allergy/AdvReac Type Severity Reaction Status Date / Time No Known Allergies Allergy Verified 11/27/21 10:58 Exam Vital signs: Vital Signs Temp 98.3 F 12/07/21 09:29 Pulse 119 H 12/07/21 09:29 Resp 18 12/07/21 09:29 BP 108/65 12/07/21 09:29 Pulse Ox 96 12/07/21 09:29 Intake & Output 12/06/21 12/07/21 12/07/21 18:59 06:59 18:59 Intake Total 100 / 100 Balance 100 / 100 Intake: Intake, IV Amount 100 / 100 Ondansetron HCL/NS 16 mg In 50 50 / 50 ml @ 200 mls/hr IV ONCE [facility] Rx# :[id number] dexAMETHasone sod phosphate/NS 50 / 50 12 mg In 50 ml @ 200 mls/hr IV ONCE [facility] Rx#:[id number] Other: Weight 64.7 kg [place] Weight in Grams 00431 Weight 64.[address] [facility] Main[facility] 4Bd Body Mass Index [facility] 4d 21.7 - Constitutional Present: no acute distress - Routine HEENT Exam Head: Present: normal inspection Eye: Present: normal appearance ENT: Present: mucous membranes moist - Routine Neck Exam Present: full ROM - Routine Respiratory Exam Present: CTAB - Routine Cardiovascular Exam Cardiovascular: Present: RRR, S1, S2 - Routine Abdominal Exam Present: soft, nontender - Routine Extremities Exam Present: nontender - Routine Back/Spine/Pelvis Exam Back/Spine: Present: full ROM - Routine Skin Exam Present: intact - Routine Neurological Exam Present: alert, oriented X3 - Routine Psychiatric Exam Present: normal affect Data - Labs CBC & Chem 7: 12/07/21 09:25 12/07/21 09:25 Assessment and Plan Patient Active problem list reviewed?: Yes (1) Carcinoma of thoracic esophagus Status: Acute Assessment and plan: This is a pleasant 71 year-old gentleman diagnosed with Carcinoma of the Esophagus, back in summer. Upper endoscopy revealed a 4 cm mass extending from the EG junction to 1-2 cm below the EG junction. Pathology: Superficial fragments of adenocarcinoma, moderately differentiated, arising in a background of Mcintyre's esophagus. HER2: 0. Endoscopic ultrasound May 10 2019: T3, N0 lesion. PET scan revealed disease confined to the esophagus. He underwent neoadjuvant chemoradiation. He received carboplatin and Taxol weekly. PET scan on 10/04/2019 showed: Mild improvement in uptake in the distal esophagus and fundus of the stomach. C6 cervical vertebra showed uptake question of a lesion. Stable small right lower lung nodule. No uptake. Bone scan from 10/22/19 revealed: Mild abnormalities in several ribs likely representing chronic rib fractures an ongoing bone remodeling. Mild on specific abnormalities is all related to arthritis. He saw Dr. Stuart. He did offer surgical resection however patient was concerned about the risks involved and so declined. EGD from 12/07/2019: EG junction was located at 39 cm. There were 2 areas of ulceration 1 measuring 10 mm and 1 measuring 5 mm at the EG junction. The previous tumor was not seen. No stricture. Pathology: GE junction mucosa with moderate acute and chronic inflammation, mucin and detached fragments of granulation tissue consistent with ulcer and esophagitis, negative for dysplasia or malignancy. CT scan from 01/22/20 revealed: Stable pulmonary nodules compared to 03/15 019. He had an upper endoscopy by Dr. Mancini in November of 2019 which revealed: The EG junction was located at 39 cm. There were 2 areas of ulceration, one measuring approximately 10 mm and one measuring approximately 5 mm at the EG junction. The previous tumor was not seen. The scope passed easily into the stomach. There was no stricture. Pathology: A. GE junction, biopsies: Gastroesophageal junctional mucosa with moderate acute and chronic inflammation, mucin and detached fragments of granulation tissue consistent with ulcer and esophagitis; negative for intestinal metaplasia; negative for dysplasia or malignancy. He has been feeling reasonably well. He denies any further dysphagia. However lately he has had a cough with sputum. His appetite is not that good and he has been losing weight. He had a CT scan of the chest on 10/08/2021 which revealed: Limited evaluation of pulmonary nodules due to artifact from respiratory motion. The 3 mm calcified right upper lobe nodule is stable. Other previously identified pulmonary nodules are not identified. Interval increase in wall thickening of the distal thoracic esophagus, GE junction and proximal stomach compared to January 2020 exam. I referred him to Dr. Mancini, who proceeded with an upper endoscopy, on 11/17 which revealed: On November 17, he underwent an upper endoscopy by Dr. Mancini which revealed: Esophagus: There was ulceration and friability with heaped up mucosa beginning at about 34 cm and extending to the EG junction at 36 cm and into the stomach for approximately 1 cm to 2 cm below this. Biopsies were obtained from the abnormal mucosa. The mucosa was ulcerated and friable with heaped up margins suspicious for recurrent tumor as opposed to just changes from his previous chemoradiation treatments. The scope was easily passed into the stomach with minimal narrowing at the EG junction. Pathology revealed: Superficial fragments of adenocarcinoma, poorly differentiated from EG junction mass, 36 cm, 34 cm. HER2/April: Negative. CEA level: 12.30. I shared the results with him and his daughter's today. I offered them systemic chemotherapy with FOLFOX/XELOX plus/minus, nivolumab based chemotherapy.(based upon the PDL1 status.) They are going to discuss it with the family and get back to me about their decision. In the meantime will have him consult with Dr. Stuart, to get his opinion and to see if a stent would be feasible. He saw him a couple of weeks ago. He did not feel a stent was feasible. I proceeded with PDL1 testing. This came back positive for PDL1 of 25. There were given written information about the chemotherapy regimens. Details of the regimen including potential side effects of hypersensitivity reaction, skin rash, arthralgias myalgias, nausea vomiting diarrhea, peripheral neuropathy, renal toxicity, hepatotoxicity, risk of infection, need for ant ibiotic, blood transfusion as well as growth factors were addressed with him. He understands and is willing to proceed. He had a Port-A-Cath placed to facilitate the chemotherapy. PLAN: He is here to get started on his chemotherapy regimen. Will re-stage him after completion of 3 cycles of chemo. He will return in a couple of weeks for a follow-up visit. All his and his daughter's questions were answered to his satisfaction. Thank you, CC: Dr. Hooks. Dr. Stuart. Dr. Mancini. - Time Spent With Patient Time Spent with Patient (in minutes): 30
[2021-12-07] MEDS: fluorouraciL 700 MG in Syringe, Disposable 0 ML IVPUSH (15:21)
--- NOTE | 2021-12-07 16:04 | MHC.HEMONC ---
Patient here for Cycle 1 Day 1 FOLFOX6 - Nivolumab. Dressings from R Chest Port and incision removed. Port accessed with blood positive return noted. Lab drawn and reviewed - okay to receive treatment today. Patient pre-medicated with Tylenol PO and Dexamethasone, Benadryl and Zofran IV. FOLFOX6 - Nivolumab given as ordered and patient tolerated it well. Positive blood return in port both pre and post chemotherapy infusion. CADD Pump placed. Pump takedown scheduled for 12/09/21 and next infusion scheduled for 12/21/21. Discharge packet given. Patient departed the unit with his daughter via wheelchair.
--- NOTE | 2021-12-09 16:33 | MHC.HEMONC ---
Call received from pts daughter Reny. Pt was having trouble with his home pump beeping, so pt took out the battery for the night. When Reny went to his house to check the machine, she put a new battery in, and restarted pump. Asked to have someone bring pt in to check the pump. Pt came in, and pump has 68ml of med left to infuse. Contacted the pharmacy and Dr Andrade, and pt to return 12/10 at 1600 for pump take down, and whatever is left in the bag at that time, pt will not get.
--- NOTE | 2021-12-10 09:16 | HO.HEMONCPA ---
No PA required for Neulasta. Drug covered under Medicare Part B benefits.
[2021-12-10] MEDS: Ondansetron ODT 8 MG TAB.RAPDIS TRANSLINGU (16:10)
--- NOTE | 2021-12-10 16:31 | MHC.HEMONC ---
Patient arrived via wheelchair for pump takedown today, his daughter was present. Patient had taken out the battery and did not restart the pump. Upon arrival there was 14.7 ml left in pump, Dr Andrade and Kian in Pharmacy aware. Right chest port flushed with Heparin and de-accessed. Patient tolerated it well. Next infusion scheduled for 12/21/21. Neulasta administered in [facility]. Patient given PO Zofran for nausea and prescription was sent over to [facility]. Discharge packet provided. Patient departed the unit via wheelchair with his daughter.
--- NOTE | 2021-12-16 16:28 | MHC.HEMONC ---
Spoke with [facility]. They have rx for Glucerna and are processing it. They will let us know if they need any documantation. They have pt daughters' numbers to contact them.
--- NOTE | 2021-12-21 09:06 | HO.HEMONCPA ---
INFORMED PATIENTS DAUGHTER AGAIN THAT WE NEED HER FATHERS INSURANCE CARDS AND PHOTO ID . SHE SAID SHE REMEMBERED ME TELLING HER THE PREVIOUS APPT ABOUT THE INSURANCE CARDS AND PHOTO ID BUT FORGET . SHE STATES SHE WILL BRING IT IN THE NEXT APPT .
[2021-12-21 09:30] VITALS: BP 117/71; PULSE 119; RESP 16; TEMP 36.6; O2SAT 98; BMI 21.0
[2021-12-21 10:02] LABS: MANUAL DIFF FLAG NO
[2021-12-21 10:03] LABS: Basophils Absolute Auto 0.1 X10*3/uL (0.0-0.2); Basophils Percent Auto 0.5 % (0-2); Eosinophils Absolute Auto 0.2 X10*3/uL (0.0-0.4); Eosinophils Percent Auto 1.5 % (0-4); Hemoglobin 12.4 g/dl (14.0-18.0); Imm Gran Abs Auto 0.29 X10*3/uL (0.00-0.03); Imm Gran Pct Auto 2.4 % (0.0-0.4); Lymphocytes Absolute Auto 2.4 X10*3/uL (1.2-4.9); Mean Corpuscular HGB Conc 31.8 g/dl (31.0-36.0); Mean Corpuscular Hemoglobin 27.1 pg (27.0-33.0); Mean Corpuscular Volume 85.3 fL (80.0-98.0); Mean Platelet Volume 10.3 fL (9.4-12.4); Monocytes Absolute Auto 1.1 X10*3/uL (0.1-1.2); Monocytes Percent Auto 8.8 % (2-11); Neutrophils Absolute Auto 8.1 x10*3/uL (2.0-8.3); Neutrophils Percent Auto 66.8 % (45-73); Platelet Count 344 X10*3/uL (160-400); Red Blood Count 4.57 X10*6/uL (4.60-5.80); Red Cell Distribution Width 14.6 % (11.0-16.0); White Blood Count 12.1 X10*3/uL (4.8-10.8)
[2021-12-21 10:23] LABS: Alanine Aminotransferase 22 U/L (0-40); Albumin Level 3.6 g/dL (3.5-5.0); Alkaline Phosphatase 193 U/L (39-117); Anion Gap 11 (12-20); Aspartate Amino Transferase 22 U/L (5-37); Bilirubin Direct 0.2 mg/dL (0.0-0.5); Bilirubin Total 0.6 mg/dL (0.0-1.0); Blood Urea Nitrogen 10 mg/dL (9-16); Calcium 9.2 mg/dL (8.4-10.2); Carbon Dioxide 30 mmol/L (22-29); Chloride 102 mmol/L (96-108); Creatinine Clr Calc Pharmacy 76.4; Estimated Glomerular Filt Rate > 60; Glucose Random 211 mg/dL (60-115); Sodium 139 mmol/L (135-145)
[2021-12-21] MEDS: Acetaminophen 325 MG TABLET 650 MG PO (10:40)
[2021-12-21] MEDS: diphenhydrAMINE HCL 50 MG/ML VIAL 25 MG IVPUSH (11:03)
[2021-12-21] MEDS: dexAMETHasone sod phosphate/NS 12 MG/50 ML PIGGYBACK 200 MG IV (11:27)
[2021-12-21] MEDS: Leucovorin Calcium 700 MG in Dextrose 5 % 250 ML 142.5 MG IV (12:35)
[2021-12-21] MEDS: OXALIplatin 100 MG, OXALIplatin 50 MG in Dextrose 5 % 500 ML 265 MG IV (12:42)
[2021-12-21] MEDS: fluorouraciL 700 MG in Syringe, Disposable 0 ML IVPUSH (14:52)
--- NOTE | 2021-12-21 16:20 | MHC.HEMONC ---
Patient here for Cycle 2 Day 1 FOLFOX6 - Nivolumab. R Chest Port accessed with blood positive return noted. Lab drawn and reviewed - okay to receive treatment today. Patient pre-medicated with Tylenol PO and Dexamethasone, Benadryl and Zofran IV. FOLFOX6 - Nivolumab given as ordered and patient tolerated it well. Positive blood return in port both pre and post chemotherapy infusion. CADD Pump placed. Pump takedown scheduled for 12/23/21 and next infusion scheduled for 01/06/22. Discharge packet given. Patient departed the unit with his daughter via wheelchair.
[2021-12-23] MEDS: Heparin Sodium,Porcine Flush 500 UNIT/5 ML SYRINGE IVFLUSH (13:00)
--- NOTE | 2021-12-23 16:32 | MHC.HEMONC ---
Patient arrived via wheelchair for pump takedown today, his nephew was present. Right chest port flushed with Heparin and de-accessed. Patient tolerated it well. Next infusion scheduled for 01/06/22. Discharge packet provided. Patient departed the unit via wheelchair with his nephew.
[2022-01-06 09:28] VITALS: BP 100/74; PULSE 106; RESP 20; TEMP 36.3; O2SAT 97; BMI 20.9
[2022-01-06 10:00] LABS: Basophils Percent Auto 0.6 % (0-2); Eosinophils Absolute Auto 0.1 X10*3/uL (0.0-0.4); Eosinophils Percent Auto 2.9 % (0-4); Hematocrit 35.2 % (42.0-52.0); Hemoglobin 11.1 g/dl (14.0-18.0); Lymphocytes Absolute Auto 1.7 X10*3/uL (1.2-4.9); Lymphocytes Percent Auto 54.2 % (20-40); MANUAL DIFF FLAG SCAN; Mean Corpuscular HGB Conc 31.5 g/dl (31.0-36.0); Mean Corpuscular Hemoglobin 26.9 pg (27.0-33.0); Mean Corpuscular Volume 85.4 fL (80.0-98.0); Mean Platelet Volume 10.1 fL (9.4-12.4); Monocytes Absolute Auto 0.9 X10*3/uL (0.1-1.2); Monocytes Percent Auto 28.2 % (2-11); Neutrophils Absolute Auto 0.4 x10*3/uL (2.0-8.3); Neutrophils Percent Auto 14.1 % (45-73); Platelet Count 261 X10*3/uL (160-400); Red Blood Count 4.12 X10*6/uL (4.60-5.80); Red Cell Distribution Width 15.9 % (11.0-16.0); SCAN SMEAR FLAG 1; White Blood Count 3.1 X10*3/uL (4.8-10.8)
[2022-01-06 10:15] LABS: Alanine Aminotransferase 66 U/L (0-40); Albumin Level 3.4 g/dL (3.5-5.0); Alkaline Phosphatase 178 U/L (39-117); Anion Gap 11 (12-20); Aspartate Amino Transferase 48 U/L (5-37); Bilirubin Direct 0.3 mg/dL (0.0-0.5); Bilirubin Total 0.6 mg/dL (0.0-1.0); Blood Urea Nitrogen 11 mg/dL (9-16); Calcium 8.7 mg/dL (8.4-10.2); Carbon Dioxide 30 mmol/L (22-29); Chloride 103 mmol/L (96-108); Creatinine Clr Calc Pharmacy 87.9; Estimated Glomerular Filt Rate > 60; Glucose Random 239 mg/dL (60-115); Potassium 3.7 mmol/L (3.3-5.1); Sodium 140 mmol/L (135-145); Total Protein 6.2 g/dL (6.5-8.0)
[2022-01-06 10:57] LABS: SLIDE REVIEW VERIFIED
--- NOTE | 2022-01-06 11:14 | HE.PHANOTE ---
PATIENT PRESENTS TODAY WITH LOW ANC; SUGGEST DELAYING TREATMENT UNTIL ANC >/= 1.5
--- NOTE | 2022-01-06 16:14 | MHC.HEMONC ---
Patient here for Cycle 3 Day 1 FOLFOX6 - Nivolumab. R Chest Port accessed with blood positive return noted. Lab drawn and reviewed - ANC=0.4 - No treatment today. Family informed. Right chest port de-accessed. Labs scheduled for 01/11/22, next infusion and follow up scheduled for 01/12/22. Family is requesting home lab draws. Dr Anna to address. Discharge packet given. Patient departed the unit with his daughter via wheelchair.
[2022-01-11 10:45] LABS: MANUAL DIFF FLAG NO
[2022-01-11 10:46] LABS: Basophils Absolute Auto 0.1 X10*3/uL (0.0-0.2); Basophils Percent Auto 0.9 % (0-2); Eosinophils Absolute Auto 0.1 X10*3/uL (0.0-0.4); Hematocrit 39.2 % (42.0-52.0); Hemoglobin 12.3 g/dl (14.0-18.0); Imm Gran Abs Auto 0.37 X10*3/uL (0.00-0.03); Imm Gran Pct Auto 4.6 % (0.0-0.4); Lymphocytes Percent Auto 37.3 % (20-40); Mean Corpuscular HGB Conc 31.4 g/dl (31.0-36.0); Mean Corpuscular Hemoglobin 26.9 pg (27.0-33.0); Mean Corpuscular Volume 85.8 fL (80.0-98.0); Mean Platelet Volume 10.1 fL (9.4-12.4); Monocytes Absolute Auto 1.4 X10*3/uL (0.1-1.2); Monocytes Percent Auto 17.9 % (2-11); Neutrophils Absolute Auto 3.1 x10*3/uL (2.0-8.3); Neutrophils Percent Auto 38.3 % (45-73); Platelet Count 527 X10*3/uL (160-400); Red Blood Count 4.57 X10*6/uL (4.60-5.80); Red Cell Distribution Width 16.3 % (11.0-16.0); White Blood Count 8.1 X10*3/uL (4.8-10.8)
[2022-01-11 11:13] LABS: Alanine Aminotransferase 34 U/L (0-40); Albumin Level 3.4 g/dL (3.5-5.0); Alkaline Phosphatase 173 U/L (39-117); Anion Gap 13 (12-20); Aspartate Amino Transferase 28 U/L (5-37); Bilirubin Direct 0.2 mg/dL (0.0-0.5); Bilirubin Total 0.6 mg/dL (0.0-1.0); Blood Urea Nitrogen 10 mg/dL (9-16); Calcium 9.5 mg/dL (8.4-10.2); Carbon Dioxide 27 mmol/L (22-29); Chloride 102 mmol/L (96-108); Creatinine Clr Calc Pharmacy 80.9; Estimated Glomerular Filt Rate > 60; Glucose Random 241 mg/dL (60-115); Potassium 4.4 mmol/L (3.3-5.1); Sodium 138 mmol/L (135-145); Total Protein 6.8 g/dL (6.5-8.0)
--- NOTE | 2022-01-11 13:07 | MHC.HEMONC ---
pt attended to lab, stable ok for treatment tomorrow. port still accessed for tx
[2022-01-12 08:58] VITALS: BMI 20.5
[2022-01-12 09:01] VITALS: BP 123/75; PULSE 106; RESP 20; TEMP 36.4; O2SAT 99
[2022-01-12] MEDS: Acetaminophen 325 MG TABLET 650 MG PO (09:20)
[2022-01-12] MEDS: diphenhydrAMINE HCL 50 MG/ML VIAL 25 MG IVPUSH (09:21)
[2022-01-12] MEDS: Famotidine/PF 20 MG/2 ML VIAL IVPUSH (09:21)
--- NOTE | 2022-01-12 09:38 | P.PNHO_ITS ---
Medical Summary - Medical Summary Date of Service: 01/12/22 Chief complaint: Follow-up for recurrent carcinoma of the esophagus. 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 Endoscopic ultrasound on May 10: Ulcerated and friable partially obstructing mass extending from the GE junction through the cardia. Mass is circumferential hypoechoic fairly well circumscribed and rather homogeneous. Penetrates the muscularis propria. Making it a T3 lesion. Numerous small shotty lymph node largest being 7.5 mm not pathologic by size criteria. Tumor extends onto the gastric cardia. Celiac adenopathy could not be assessed. CURRENT THERAPY: Started radiation: July [id number]. Completed low-dose carboplatin and Taxol weekly 08/13/2019. Now with disease recurrence. Started on systemic chemotherapy with FOLFOX, 12/07. Here for cycle: 2 day 1. Interval History Interval history: This is a pleasant 71 year-old gentleman here for a follow-up visit. He tells me that he has been feeling rather well. Overall he feels a lot better. Sometimes he notices some coughing bout sometimes with food and sometimes even without. His energy level is fluctuating. He has good days and bad days. He does feel more tired after the treatment but then he recovers after Tuesday. He gets occasional nausea. He takes Zofran which helps. He has been able to eat very well. He takes Glucerna 2 to 3 times a day. No headache no dizziness. He denies chest pain or trouble breathing. Denies abdominal pain nausea or vomiting. He gets occasional heartburn/ indigestion, for which he takes omeprazole. Bowels are working without any gross blood in it. He does get constipated. He takes MOM and fiber gummies. He does enjoy a good appetite. He has gained weight. He is in good spirits. Rest of the review of systems is unremarkable. Previous history: At his last visit, in November: He tells me that he has had some difficulty swallowing lately. It is mostly to solids. Liquids go down easily. It is a level 6 on 1-10 scale. Sometimes while eating he has a choking sensation. He is mostly taking soft diet including oatmeal, soups and rice. He tries to avoid chicken since it causes acid reflux. Patient was seen here back in mid . He complained that over the past couple of weeks he noted a cough. Would bring up clear sputum. He had been using DayQuil and NyQuil for symptoms. His appetite had declined. He denied obvious dysphagia or odynophagia. He had a CT scan of the chest on 10/08/2021 which revealed: Limited evaluation of pulmonary nodules due to artifact from respiratory motion. The 3 mm calcified right upper lobe nodule is stable. Other previously identified pulmonary nodules are not identified. Interval increase in wall thickening of the distal thoracic esophagus, GE junction and proximal stomach compared to January 2020 exam. On November 17, he underwent an upper endoscopy by Dr. Mancini which revealed: Esophagus: There was ulceration and friability with heaped up mucosa beginning at about 34 cm and extending to the EG junction at 36 cm and into the stomach for approximately 1 cm to 2 cm below this. Biopsies were obtained from the abnormal mucosa. The mucosa was ulcerated and friable with heaped up margins suspicious for recurrent tumor as opposed to just changes from his previous ch emoradiation treatments. The scope was easily passed into the stomach with minimal narrowing at the EG junction. Pathology revealed: Superficial fragments of adenocarcinoma, poorly differentiated from EG junction mass, 36 cm, 34 cm. Review of Systems - Constitutional Reports system reviewed and no additional complaints, except as documented - Eyes Reports system reviewed and no additional complaints, except as documented - ENT Reports system reviewed and no additional complaints, except as documented - Cardiovascular Reports system reviewed and no additional complaints, except as documented - Respiratory Reports no additional respiratory complaints - Gastrointestinal Reports system reviewed and no additional complaints, except as documented - Genitourinary Genitourinary: Reports no additional male genitourinary complaints - Musculoskeletal Reports system reviewed and no additional complaints, except as documented - Integumentary/Breasts Skin/Breast: Reports no additional skin complaints - Neurologic Reports system reviewed and no additional complaints, except as documented, Denies behavioral changes, Denies weakness - Psychiatric Reports system reviewed and no additional complaints, except as documented - Endocrine Reports no additional endocrine complaints - Hematologic/Lymphatic Reports system reviewed and no additional complaints, except as documented - Allergic/Immunologic Reports system reviewed and no additional complaints, except as documented [facility] Medical History: Medical History (Last Reviewed 01/17/22 @ 14:10 by Lisa Blas NP) Adenocarcinoma of cardio-esophageal junction Anxiety Benign essential hypertension Constipation Depression Diabetes type 2, uncontrolled Diabetic nephropathy associated with type 2 diabetes mellitus Diabetic neuropathy Diabetic neuropathy associated with type 2 diabetes mellitus Dyslipidemia HLD (hyperlipidemia) Hypertension Keratotic lesion Left below-knee amputee halfway (current) use of insulin Pure hypercholesterolemia Type 2 diabetes mellitus with diabetic polyneuropathy Vitamin D deficiency Functional capacity: uses cane/walker Patient : No Family History: Family History (Last Reviewed 01/17/22 @ 14:10 by Lisa Blas NP) Father Diabetes Hypertension Mother No problems noted. Surgical History: Surgical History (Last Reviewed 01/17/22 @ 14:10 by Lisa Blas NP) History of atherectomy History of left below knee amputation Status post below-knee amputation of left lower extremity Social History: Social History (Last Reviewed 01/17/22 @ 14:10 by Lisa Blas NP) Living Situation History: Household Members: Family Housing: House Tobacco History: Patient Tobacco Use Status: Never used Tobacco Second Hand Smoke Exposure: Yes Advance Directives: Advance Directives Date on File: 08/19/20 Occupation Assessmet: service: No Current occupational status: retired Current occupational status: disabled Oncology Screenings - ECOG Performance Status ECOG Performance Status: 1 Home Medications and Allergies Current Medications: Current Medications Acetaminophen (Acetaminophen 325 Mg Tablet) 650 mg PO ONCE COURTNEY Stop: 01/12/22 23:59 Last Admin: 01/12/22 09:20 Dose: 650 mg Documented by: Diphenhydramine HCl (Diphenhydramine Hcl 50 Mg/Ml Vial) 25 mg IVPUSH ONCE COURTNEY Stop: 01/12/22 23:59 Last Admin: 01/12/22 09:21 Dose: 25 mg Documented by: Famotidine (Famotidine/Pf 20 Mg/2 Ml Vial) 20 mg IVPUSH ONCE COURTNEY Stop: 01/12/22 23:59 Last Admin: 01/12/22 09:21 Dose: 20 mg Documented by: Dexamethasone Sodium Phosphate (Decadron) 12 mg in 50 mls @ 200 mls/hr IV ONCE COURTNEY Stop: 01/12/22 23:59 Ondansetron HCl (Zofran) 16 mg in 50 mls @ 200 mls/hr IV ONCE COURTNEY Stop: 01/12/22 23:59 Last Admin: 01/12/22 09:27 Dose: 200 mls/hr Documented by: Fluorouracil 4,175 mg/ Sodium (Chloride) 92 mls @ 2 mls/hr IV ONCE COURTNEY Stop: 01/12/22 23:59 Fluorouracil 700 mg/ IV (Miscellaneous Supplies) 14 mls @ 0 mls/hr IVPUSH ONCE COURTNEY Stop: 01/12/22 23:59 Leucovorin Calcium 700 mg/ (Dextrose) 285 mls @ 142.5 mls/hr IV ONCE COURTNEY Stop: 01/12/22 23:59 Nivolumab 240 mg/ Sodium (Chloride) 124 mls @ 248 mls/hr IV ONCE COURTNEY Stop: 01/12/22 23:59 Oxaliplatin 100 mg/ (Oxaliplatin 50 mg/ Dextrose) 530 mls @ 265 mls/hr IV ONCE COURTNEY Stop: 01/12/22 23:59 Home Medications Medication Instructions Recorded Confirmed Type insulin aspar prot-insulin aspart 30 unit SUBCUT DAILY@0730 ml 07/06/21 01/17/22 History 100 unit/mL (70-30) subcutaneous pen (Novolog Mix 70-30FlexPen U-100) atorvastatin 40 mg tablet 40 mg PO BEDTIME 01/17/22 01/17/22 History docusate sodium 100 mg capsule 200 mg PO BEDTIME 01/17/22 01/17/22 History insulin aspar prot-insulin aspart 22 unit SUBCUT DAILY@1700 01/17/22 01/17/22 History 100 unit/mL (70-30) subcutaneous pen (Novolog Mix 70-30FlexPen U-100) losartan 100 mg tablet 100 mg PO BEDTIME 01/17/22 01/17/22 History omeprazole 20 mg capsule,delayed 20 mg PO BID@0630,1630 01/17/22 01/17/22 History release Allergies Allergy/AdvReac Type Severity Reaction Status Date / Time No Known Allergies Allergy Verified 01/17/22 13:12 Exam Vital signs: Vital Signs Temp 97.5 F 01/12/22 09:01 Pulse 106 H 01/12/22 09:01 Resp 20 01/12/22 09:01 BP 123/75 01/12/22 09:01 Pulse Ox 99 01/12/22 09:01 Intake & Output 01/11/22 01/12/22 01/12/22 18:59 06:59 18:59 Other: Weight 61.4 kg [place] Weight in Grams 96920 Weight 61.4 kg BMI result Body Mass Index 20.5 - Constitutional Present: no acute distress - Routine HEENT Exam Head: Present: normal inspection Eye: Present: normal appearance ENT: Present: mucous membranes moist - Routine Neck Exam Present: full ROM - Routine Respiratory Exam Present: CTAB - Routine Cardiovascular Exam Cardiovascular: Present: RRR, S1, S2 - Routine Abdominal Exam Present: soft, nontender - Routine Extremities Exam Present: nontender - Routine Back/Spine/Pelvis Exam Back/Spine: Present: full ROM - Routine Skin Exam Present: intact - Routine Neurological Exam Present: alert, oriented X3 - Routine Psychiatric Exam Present: normal affect Data - Labs CBC & Chem 7: 01/11/22 10:37 01/11/22 10:37 Assessment and Plan Patient Active problem list reviewed?: Yes (1) Carcinoma of thoracic esophagus Status: Acute Assessment and plan: This is a pleasant 71 year-old gentleman diagnosed with Carcinoma of the Esophagus, back in summer. Upper endoscopy revealed a 4 cm mass extending from the EG junction to 1-2 cm below the EG junction. Pathology: Superficial fragments of adenocarcinoma, moderately differentiated, arising in a background of Mcintyre's esophagus. HER2: 0. Endoscopic ultrasound May 10 2019: T3, N0 lesion. PET scan revealed disease confined to the esophagus. He underwent neoadjuvant chemoradiation. He received carboplatin and Taxol weekly. PET scan on 10/04/2019 showed: Mild improvement in uptake in the distal esophagus and fundus of the stomach. C6 cervical vertebra showed uptake question of a lesion. Stable small right lower lung nodule. No uptake. Bone scan from 10/22/19 revealed: Mild abnormalities in several ribs likely representing chronic rib fractures an ongoing bone remodeling. Mild on specific abnormalities is all related to arthritis. He saw Dr. Stuart. He did offer surgical resection however patient was concerned about the risks involved and so declined. EGD from 12/07/2019: EG junction was located at 39 cm. There were 2 areas of ulceration 1 measuring 10 mm and 1 measuring 5 mm at the EG junction. The previous tumor was not seen. No stricture. Pathology: GE junction mucosa with moderate acute and chronic inflammation, mucin and detached fragments of granulation tissue consistent with ulcer and esophagitis, negative for dysplasia or malignancy. CT scan from 01/22/20 revealed: Stable pulmonary nodules compared to 03/15 019. He had an upper endoscopy by Dr. Mancini in November of 2019 which revealed: The EG junction was located at 39 cm. There were 2 areas of ulceration, one measuring approximately 10 mm and one measuring approximately 5 mm at the EG junction. The previous tumor was not seen. The scope passed easily into the stomach. There was no stricture. Pathology: A. GE junction, biopsies: Gastroesophageal junctional mucosa with moderate acute and chronic inflammation, mucin and detached fragments of granulation tissue consistent with ulcer and esophagitis; negative for intestinal metaplasia; negative for dysplasia or malignancy. He has been feeling reasonably well. He denies any further dysphagia. However lately he has had a cough with sputum. His appetite is not that good and he has been losing weight. He had a CT scan of the chest on 10/08/2021 which revealed: Limited evaluation of pulmonary nodules due to artifact from respiratory motion. The 3 mm calcified right upper lobe nodule is stable. Other previously identified pulmonary nodules are not identified. Interval increase in wall thickening of the distal thoracic esophagus, GE junction and proximal stomach compared to January 2020 exam. I referred him to Dr. Mancini, who proceeded with an upper endoscopy, on 11/17 which revealed: On November 17, he underwent an upper endoscopy by Dr. Mancini which revealed: Esophagus: There was ulceration and friability with heaped up mucosa beginning at about 34 cm and extending to the EG junction at 36 cm and into the stomach for approximately 1 cm to 2 cm below this. Biopsies were obtained from the abnormal mucosa. The mucosa was ulcerated and friable with heaped up margins suspicious for recurrent tumor as opposed to just changes from his previous chemoradiation treatments. The scope was easily passed into the stomach with minimal narrowing at the EG junction. Pathology revealed: Superficial fragments of adenocarcinoma, poorly differentiated from EG junction mass, 36 cm, 34 cm. HER2/April: Negative. CEA level: 12.30. I shared the results with him and his daughters. I offered them systemic chemotherapy with FOLFOX/XELOX plus/minus, nivolumab based chemotherapy.(based upon the PDL1 status.) They are going to discuss it with the family and get back to me about their decision. In the meantime will have him consult with Dr. Stuart, to get his opinion and to see if a stent would be feasible. He saw him a couple of months ago. That time, he did not feel a stent was feasible. I proceeded with PDL1 testing. This came back positive for PDL1 of 25. There were given written information about the chemotherapy regimens. Details of the regimen including potential side effects of hypersensitivity reaction, skin rash, arthralgias myalgias, nausea vomiting diarrhea, peripheral neuropathy, renal toxicity, hepatotoxicity, risk of infection, need for antibiotic, blood transfusion as well as growth factors were addressed with him. He understood and was willing to proceed. He had a Port-A-Cath placed to facilitate the chemotherapy. He started treatment 12/07. He is tolerating it very well. His symptoms of dysphagia have resolved. He is able to eat well. PLAN: He is here for cycle 2, day 1 of his regimen. Will re-stage him after completion of 3 cycles of chemo. He will return in a couple of weeks for a follow-up visit. All his and his daughter's questions were answered to his satisfaction. Thank you, CC: Dr. Hooks. Dr. Stuart. Dr. Mancini. - Time Spent With Patient Time Spent with Patient (in minutes): 30
[2022-01-12] MEDS: dexAMETHasone sod phosphate/NS 12 MG/50 ML PIGGYBACK 200 MG IV (09:48)
[2022-01-12] MEDS: OXALIplatin 100 MG, OXALIplatin 50 MG in Dextrose 5 % 500 ML 265 MG IV (11:29)
[2022-01-12] MEDS: Leucovorin Calcium 700 MG in Dextrose 5 % 250 ML 142.5 MG IV (11:30)
[2022-01-12] MEDS: Insulin Lispro 100 UNIT/ML 3 ML VIAL 10 UNIT SUBCUT (11:37)
[2022-01-12] MEDS: Insulin Glargine,Hum.rec.anlog 100 UNIT/ML 10 ML VIAL 10 UNIT SUBCUT (13:10)
[2022-01-12 13:39] LABS: Glucose, Whole Blood 366 mg/dL (60-115)
[2022-01-12] MEDS: fluorouraciL 700 MG in Syringe, Disposable 0 ML 14 MG IVPUSH (13:43)
[2022-01-12] MEDS: fluorouraciL 4,175 MG in 0.9 % Sodium Chloride 8.5 ML IV (13:44)
--- NOTE | 2022-01-12 15:31 | MHC.HEMONC ---
Here for C3 D1 Folfox/Nivolumab. Labs done 01/11 reviewed. Port left accessed, flushed with heparin and good blood return noted. Daughter here with Yunior. Per his daughter, he has been feeling well, with just some nausea. States he is taking his ondansetron and it is helping. Premedicated with zofran, benadryl, dexamethasone, pepcid IV, and tylenol po. Pt has his prefilled insulin pen with him, but forgot the needle for it. Pt has freestyle disc on his left arm to read his blood sugars. His blood sugar prior to lunch was 299. Pt was given Lispro 10units sc at 1137. POC bs 357 at 1230, reported to Dr Anna, and pt given Lantus 10units at 1310. His daughter was made aware of his blood sugars and what insulin was given. His treatment was given and tolerated well. Home with infusion pump. Will return on for take down.
[2022-01-14] MEDS: Heparin Sodium,Porcine Flush 500 UNIT/5 ML SYRINGE IVFLUSH (12:07)
--- NOTE | 2022-01-14 15:50 | MHC.HEMONC ---
Here for pump take down. States tolerated treatment well. Neulasta given SC and tolerated well. Scheduled to return for next treatment in 2 weeks.
[2022-02-02 09:06] VITALS: BP 124/67; PULSE 110; RESP 18; TEMP 36.2; O2SAT 95; BMI 20.3
[2022-02-02] MEDS: Acetaminophen 325 MG TABLET 650 MG PO (09:17)
[2022-02-02] MEDS: dexAMETHasone sod phosphate/NS 12 MG/50 ML PIGGYBACK 200 MG IV (09:18)
[2022-02-02] MEDS: diphenhydrAMINE HCL 50 MG/ML VIAL 25 MG IVPUSH (09:21)
[2022-02-02] MEDS: OXALIplatin 100 MG, OXALIplatin 50 MG in Dextrose 5 % 500 ML 265 MG IV (11:23)
[2022-02-02] MEDS: Leucovorin Calcium 690 MG in Dextrose 5 % 250 ML 142.25 MG IV (11:23)
[2022-02-02 11:47] LABS: Appearance Urine CLOUDY; Color Urine YELLOW; Glucose Urine UA NEG (NEG); Leukocyte Esterase Urine 2+ (NEG); Nitrite Urine NEG (NEG); Specific Gravity - Urine >= 1.030 (1.005-1.025); UACC Culture Trigger YES; Urine Blood TRACE (NEG); Urine Ketones 5 MG/DL (NEG); Urine Protein 1+ MG/DL (NEG-TRACE)
[2022-02-02 11:55] LABS: WBC Urine TNTC /HPF (0-4)
[2022-02-02 11:56] LABS: Bacteria Urine 3+ /LPF; RBC Urine 0 /HPF (0)
[2022-02-02] MEDS: fluorouraciL 700 MG in Syringe, Disposable 0 ML 17 MG IVPUSH (13:27)
[2022-02-02] MEDS: fluorouraciL 4,150 MG in 0.9 % Sodium Chloride 9 ML IV (13:28)
--- NOTE | 2022-02-02 14:00 | MHC.HEMONC ---
Pt to have home draw labs day before chemotherapy q 2weeks on Tuesday. Order faxed to lab. Spoke with Holly to confirm home draw scheduled for q 2 weeks on Tuesday
--- NOTE | 2022-02-02 14:07 | MHC.HEMONC ---
TSH level from 12/07/[address] Hooks per Dr Anna request
--- NOTE | 2022-02-02 14:42 | MHC.HEMONC ---
Pt C4D1 FOLFOX/Nivolumab. Labs drawn yesterday at [id number] to receive treatment today. Pt states he has some neuropathy. Port accessed with blood return noted. Pre medicated with zofran, benadryl, pepcid, decadron, tylenol. Nivolumab/Folfox given as directed-tolerated well. Dr Anna notified today is pt's 4th cycle. Plan for scan awaiting order. Discharge packet given with follow up appointments scheduled. Pt to return on 02/04/22 for chemo pump take down. Home with chemo home infusion pump
--- NOTE | 2022-02-02 15:23 | MHC.HEMONC ---
Order for CT abdomen and chest printed and given to Ashanti Ricketts to process
--- NOTE | 2022-02-04 11:42 | MHC.HEMONC ---
Nurse took t/c from pt's dtr/granddtr, who reported that pump had accidentally been turned off overnight, and unfortunately, it appears pt has 36 ml of 92 ml infusion remaining. Pt's infusion was supposed to complete today and he had a pump takedown scheduled for today. Nurses calculated that, w/ home pump infusing at 2 ml/hr, his infusion should complete at about 5am tomorrow morning. Nurse advised pt to remove the battery from the pump after it completes the infusion and begins beeping, then come in for pump takedown later tomorrow morning. Pt's takedown was rescheduled for 09:30 on 02/05/22.
[2022-02-05] MEDS: Heparin Sodium,Porcine Flush 500 UNIT/5 ML SYRINGE IVFLUSH (09:34)
--- NOTE | 2022-02-05 16:53 | MHC.HEMONC ---
Pt and his dtr presented for his pump takedown, delayed from yesterday because pump had inadvertently been turned off for more than half a day. Pt reported the pump completed its 5FU infusion about 5 am this morning, pt removed the battery. Nurse flushed R chest port w/ NS, founf it had positive blood return, then flushed w/ 500 units heparin, and de-accessed port. Pt tolerated it very well. Pt was d/c'd in good spirits w/ his next chemo, C5D1 FOLFOX/Nivolumab, booked for 02/16/22.
--- NOTE | 2022-02-16 06:40 | HE.PHANOTE ---
REPORTED LOW TSH TO MD ON 02/01/22; DR ULLOA SAID SHE WOULD PASS ALONG INFO TO PATIENT'S PCP
[2022-02-16 08:53] VITALS: BP 129/66; PULSE 104; RESP 16; TEMP 36.7; O2SAT 98; BMI 18.8
[2022-02-16] MEDS: Acetaminophen 325 MG TABLET 650 MG PO (09:14)
[2022-02-16] MEDS: diphenhydrAMINE HCL 50 MG/ML VIAL 25 MG IVPUSH (09:15)
[2022-02-16] MEDS: dexAMETHasone sod phosphate/NS 12 MG/50 ML PIGGYBACK 200 MG IV (09:45)
[2022-02-16] MEDS: Leucovorin Calcium 680 MG in Dextrose 5 % 250 ML 142 MG IV (11:23)
[2022-02-16] MEDS: OXALIplatin 100 MG, OXALIplatin 50 MG in Dextrose 5 % 500 ML 265 MG IV (11:24)
[2022-02-16] MEDS: FLUOROURACIL IVPUSH (13:34)
[2022-02-16] MEDS: DISPOSABLE IVPUSH (13:34)
[2022-02-16] MEDS: fluorouraciL 4,100 MG in 0.9 % Sodium Chloride 10 ML IV (13:35)
--- NOTE | 2022-02-16 13:53 | P.PNHO_ITS ---
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 Endoscopic ultrasound on May 10: Ulcerated and friable partially obstructing mass extending from the GE junction through the cardia. Mass is circumferential hypoechoic fairly well circumscribed and rather homogeneous. Penetrates the muscularis propria. Making it a T3 lesion. Numerous small shotty lymph node largest being 7.5 mm not pathologic by size criteria. Tumor extends onto the gastric cardia. Celiac adenopathy could not be assessed. CURRENT THERAPY: Started radiation: July 09 2019. Completed low-dose carboplatin and Taxol weekly 08/13/2019. Now with disease recurrence. Started on systemic chemotherapy with FOLFOX, 12/07. Here for cycle: 3 day 1. Interval History Interval history: This is a pleasant 71 year-old gentleman here for a follow-up visit. His chemotherapy had to be delayed on account of leukopenia. He was in house between 01/17 and 01/19. Discharge summary: Presented with burning with urination that started a few days ago. He reported dysuria and frequency but denied hematuria as well as fever, chills, nausea or vomiting.? He is currently undergoing chemotherapy for esophageal cancer at [facility] [place]ology.? White blood cell count was noted to be elevated at 46,000, lactic acid 2.7, tachycardia and tachypnea.? Urinalysis was positive for UTI, chest x- ray: Negative.? He was given a dose of Rocephin IV fluids in the ER.? Was admitted for further management and treatment of severe sepsis secondary to urinary tract infection. Severe sepsis secondary to urinary tract infection. Treated with IV Rocephin. Resolved Leukocytosis, tachycardia, tachypnea, lactic acidosis. Blood cultures up to 24 hours: Negative. He tells me that he has been feeling rather well. Overall he feels his energy level is a lot better. He denies any dysphagia odynophagia however he does feel full easily. He takes meals frequently. He has been taking Glucerna supplements, 2 to 3 times a day. Sometimes he notices some cough, but that has improved as well. He denies any abdominal pain. He gets occasional nausea. He takes Zofran which helps. He gets occasional heartburn/ indigestion, for which he takes omeprazole. Bowels are working without any gross blood in it. He does get constipated. He takes MOM and fiber gummies. He has been able to eat very well. No headache no dizziness. He denies chest pain or trouble breathing. He does enjoy a good appetite. He has gained weight. He is in good spirits. Rest of the review of systems is unremarkable. Previous history: At his previous visit, in November: He tells me that he has had some difficulty swallowing lately. It is mostly to solids. Liquids go down easily. It is a level 6 on 1-10 scale. Sometimes while eating he has a choking sensation. He is mostly taking soft diet including oatmeal, soups and rice. He tries to avoid chicken since it causes acid reflux. Patient was seen here back in mid . He complained that over the past couple of weeks he noted a cough. Would bring up clear sputum. He had been using DayQuil and NyQuil for symptoms. His appetite had declined. He denied obvious dysphagia or odynophagia. He had a CT scan of the chest on 10/08/2021 which revealed: Limited evaluation of pulmonary nodules due to artifact from respiratory motion. The 3 mm calcified right upper lobe nodule is stable. Other previously identified pulmonary nodules are not identified. Interval increase in wall thickening of the distal thoracic esophagus, GE junction and proximal stomach compared to January 2020 exam. On November 17, he underwent an upper endoscopy by Dr. Mancini which revealed: Esophagus: There was ulceration and friability with heaped up mucosa beginning at about 34 cm and extending to the EG junction at 36 cm and into the stomach for approximately 1 cm to 2 cm below this. Biopsies were obtained from the abnormal mucosa. The mucosa was ulcerated and friable with heaped up margins suspicious for recurrent tumor as opposed to just changes from his previous chemoradiation treatments. The scope was easily passed into the stomach with minimal narrowing at the EG junction. Pathology revealed: Superficial fragments of adenocarcinoma, poorly differentiated from EG junction mass, 36 cm, 34 cm. Review of Systems - Constitutional Reports system reviewed and no additional complaints, except as documented, Reports weight gain, Denies lack of energy, Denies malaise, Denies poor appetite, Denies weakness - Eyes Reports system reviewed and no additional complaints, except as documented - ENT Reports system reviewed and no additional complaints, except as documented - Cardiovascular Reports system reviewed and no additional complaints, except as documented - Respiratory Reports no additional respiratory complaints - Gastrointestinal Reports system reviewed and no additional complaints, except as documented - Genitourinary Genitourinary: Reports no additional male genitourinary complaints - Musculoskeletal Reports system reviewed and no additional complaints, except as documented - Integumentary/Breasts Skin/Breast: Reports no additional skin complaints - Neurologic Reports system reviewed and no additional complaints, except as documented, Denies behavioral changes, Denies weakness - Psychiatric Reports system reviewed and no additional complaints, except as documented - Endocrine Reports no additional endocrine complaints - Hematologic/Lymphatic Reports system reviewed and no additional complaints, except as documented - Allergic/Immunologic Reports system reviewed and no additional complaints, except as documented PMFSH Medical History: Medical History (Last Reviewed 01/29/22 @ 05:38 by Norm Hooks MD) Adenocarcinoma of cardio-esophageal junction Anxiety Benign essential hypertension Constipation Depression Diabetes type 2, uncontrolled Diabetic nephropathy associated with type 2 diabetes mellitus Diabetic neuropathy Diabetic neuropathy associated with type 2 diabetes mellitus Dyslipidemia HLD (hyperlipidemia) Hypertension Keratotic lesion 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 Surgical History: Surgical History (Last Reviewed 01/29/22 @ 05:38 by Norm Hooks MD) History of atherectomy History of left below knee amputation Status post below-knee amputation of left lower extremity Social History: Social History (Last Reviewed 01/29/22 @ 05:38 by Norm Hooks MD) Living Situation History: Household Members: Family Housing: House Tobacco History: Patient Tobacco Use Status: Never used Tobacco e-Cigarette/Vaping Use: Never Used Second Hand Smoke Exposure: Yes Advance Directives: Advance Directives Date on File: 08/19/20 Nutrition Assessment: Patient : No Occupation Assessmet: service: No Current occupational status: retired Current occupational status: disabled Oncology Screenings - ECOG Performance Status ECOG Performance Status: 1 Home Medications and Allergies Current Medications: Current Medications Acetaminophen (Acetaminophen 325 Mg Tablet) 650 mg PO ONCE COURTNEY Stop: 02/16/22 23:59 Last Admin: 02/16/22 09:14 Dose: 650 mg Documented by: Diphenhydramine HCl (Diphenhydramine Hcl 50 Mg/Ml Vial) 25 mg IVPUSH ONCE COURTNEY Stop: 02/16/22 23:59 Last Admin: 02/16/22 09:15 Dose: 25 mg Documented by: Dexamethasone Sodium Phosphate (Decadron) 12 mg in 50 mls @ 200 mls/hr IV ONCE COURTNEY Stop: 02/16/22 23:59 Last Infusion: 02/16/22 10:00 Dose: Infused Documented by: Ondansetron HCl (Zofran) 16 mg in 50 mls @ 200 mls/hr IV ONCE COURTNEY Stop: 02/16/22 23:59 Last Infusion: 02/16/22 09:33 Dose: Infused Documented by: Fluorouracil 4,100 mg/ Sodium (Chloride) 92 mls @ 2 mls/hr IV ONCE COURTNEY Stop: 02/16/22 23:59 Last Admin: 02/16/22 13:35 Dose: 2 mls/hr Documented by: Fluorouracil 675 mg/ IV (Miscellaneous Supplies) 13.5 mls @ 0 mls/hr IVPUSH ONCE COURTNEY Stop: 02/16/22 23:59 Last Admin: 02/16/22 13:34 Dose: 500 mls/hr Documented by: Leucovorin Calcium 680 mg/ (Dextrose) 284 mls @ 142 mls/hr IV ONCE COURTNEY Stop: 02/16/22 23:59 Last Infusion: 02/16/22 13:23 Dose: Infused Documented by: Nivolumab 240 mg/ Sodium (Chloride) 124 mls @ 248 mls/hr IV ONCE COURTNEY Stop: 02/16/22 23:59 Last Infusion: 02/16/22 11:07 Dose: Infused Documented by: Oxaliplatin 100 mg/ (Oxaliplatin 50 mg/ Dextrose) 530 mls @ 265 mls/hr IV ONCE COURTNEY Stop: 02/16/22 23:59 Last Infusion: 02/16/22 13:24 Dose: Infused Documented by: Home Medications Medication Instructions Recorded Confirmed Type insulin aspar prot-insulin aspart 30 unit SUBCUT DAILY@0730 ml 07/06/21 02/02/22 History 100 unit/mL (70-30) subcutaneous pen (Novolog Mix 70-30FlexPen U-100) atorvastatin 40 mg tablet 40 mg PO BEDTIME 03/06/22 03/22/22 History docusate sodium 100 mg capsule 200 mg PO BEDTIME 01/17/22 02/02/22 History insulin aspar prot-insulin aspart 22 unit SUBCUT DAILY@1700 01/17/22 02/02/22 History 100 unit/mL (70-30) subcutaneous pen (Novolog Mix 70-30FlexPen U-100) losartan 100 mg tablet 100 mg PO BEDTIME 01/17/22 02/02/22 History omeprazole 20 mg capsule,delayed 20 mg PO BID@0630,1630 01/17/22 02/02/22 History release Allergies Allergy/AdvReac Type Severity Reaction Status Date / Time No Known Allergies Allergy Verified 01/25/22 09:23 Exam Vital signs: Vital Signs Temp 98.0 F 02/16/22 08:53 Pulse 104 H 02/16/22 08:53 Resp 16 02/16/22 08:53 BP 129/66 02/16/22 08:53 Pulse Ox 98 02/16/22 08:53 Intake & Output 02/15/22 02/16/22 02/16/22 18:59 06:59 18:59 Intake Total 1038 / 1038 Balance 1038 / 1038 Intake: Intake, IV Amount 1038 / 1038 Leucovorin Calcium 680 mg In 284 / 284 Dextrose 5 % 250 ml @ 142 mls/ hr IV ONCE COURTNEY Rx#:[id number] Nivolumab 240 mg In 0.9 % 124 / 124 Sodium Chloride 100 ml @ 248 mls/hr IV ONCE COURTNEY Rx#: [id number] OXALIplatin 100 mg OXALIplatin 530 / 530 50 mg In Dextrose 5 % 500 ml @ 265 mls/hr IV ONCE COURTNEY Rx#: [id number] Ondansetron HCL/NS 16 mg In 50 50 / 50 ml @ 200 mls/hr IV ONCE COURTNEY Rx# :[id number] dexAMETHasone sod phosphate/NS 50 / 50 12 mg In 50 ml @ 200 mls/hr IV ONCE COURTNEY Rx#:[id number] Other: Weight 56.3 kg [place] Weight in Grams 14164 Weight 56.3 kg BMI result Body Mass Index 18.8 - Constitutional Present: no acute distress - Routine HEENT Exam Head: Present: normal inspection Eye: Present: normal appearance ENT: Present: mucous membranes moist - Routine Neck Exam Present: full ROM - Routine Respiratory Exam Present: CTAB - Routine Cardiovascular Exam Cardiovascular: Present: RRR, S1, S2 - Routine Abdominal Exam Present: soft, nontender - Routine Extremities Exam Present: nontender - Routine Back/Spine/Pelvis Exam Back/Spine: Present: full ROM - Routine Skin Exam Present: intact - Routine Neurological Exam Present: alert, oriented X3 - Routine Psychiatric Exam Present: normal affect Data - Labs CBC & Chem 7: 01/11/22 10:37 01/11/22 10:37 Assessment and Plan Patient Active problem list reviewed?: Yes (1) Carcinoma of thoracic esophagus Status: Acute Assessment and plan: This is a pleasant 71 year-old gentleman diagnosed with Carcinoma of the Esophagus, back in summer. Upper endoscopy revealed a 4 cm mass extending from the EG junction to 1-2 cm below the EG junction. Pathology: Superficial fragments of adenocarcinoma, moderately differentiated, arising in a background of Mcintyre's esophagus. HER2: 0. Endoscopic ultrasound May 10 2019: T3, N0 lesion. PET scan revealed disease confined to the esophagus. He underwent neoadjuvant chemoradiation. He received carboplatin and Taxol weekly. PET scan on 10/04/2019 showed: Mild improvement in uptake in the distal esophagus and fundus of the stomach. C6 cervical vertebra showed uptake question of a lesion. Stable small right lower lung nodule. No uptake. Bone scan from 10/22/19 revealed: Mild abnormalities in several ribs likely representing chronic rib fractures an ongoing bone remodeling. Mild on specific abnormalities is all related to arthritis. He saw Dr. Stuart. He did offer surgical resection however patient was concerned about the risks involved and so declined. EGD from 12/07/2019: EG junction was located at 39 cm. There were 2 areas of ulceration 1 measuring 10 mm and 1 measuring 5 mm at the EG junction. The previous tumor was not seen. No stricture. Pathology: GE junction mucosa with moderate acute and chronic inflammation, mucin and detached fragments of granulation tissue consistent with ulcer and esophagitis, negative for dysplasia or malignancy. CT scan from 01/22/20 revealed: Stable pulmonary nodules compared to 03/15 019. He had an upper endoscopy by Dr. Mancini in November of 2019 which revealed: The EG junction was located at 39 cm. There were 2 areas of ulceration, one measuring approximately 10 mm and one measuring approximately 5 mm at the EG junction. The previous tumor was not seen. The scope passed easily into the stomach. There was no stricture. Pathology: A. GE junction, biopsies: Gastroesophageal junctional mucosa with moderate acute and chronic inflammation, mucin and detached fragments of granulation tissue consistent with ulcer and esophagitis; negative for intestinal metaplasia; negative for dysplasia or malignancy. He has been feeling reasonably well. He denies any further dysphagia. However lately he has had a cough with sputum. His appetite is not that good and he has been losing weight. He had a CT scan of the chest on 10/08/2021 which revealed: Limited evaluation of pulmonary nodules due to artifact from respiratory motion. The 3 mm calcified right upper lobe nodule is stable. Other previously identified pulmonary nodules are not identified. Interval increase in wall thickening of the distal thoracic esophagus, GE junction and proximal stomach compared to January 2020 exam. I referred him to Dr. Mancini, who proceeded with an upper endoscopy, on 11/17 which revealed: On November 17, he underwent an upper endoscopy by Dr. Mancini which revealed: Esophagus: There was ulceration and friability with heaped up mucosa beginning at about 34 cm and extending to the EG junction at 36 cm and into the stomach for approximately 1 cm to 2 cm below this. Biopsies were obtained from the abnormal mucosa. The mucosa was ulcerated and friable with heaped up margins suspicious for recurrent tumor as opposed to just changes from his previous chemoradiation treatments. The scope was easily passed into the stomach with minimal narrowing at the EG junction. Pathology revealed: Superficial fragments of adenocarcinoma, poorly differentiated from EG junction mass, 36 cm, 34 cm. HER2/April: Negative. CEA level: 12.30. I shared the results with him and his daughters. I offered them systemic chemotherapy with FOLFOX/XELOX plus/minus, nivolumab based chemotherapy.(based upon the PDL1 status.) They are going to discuss it with the family and get back to me about their decision. In the meantime will have him consult with Dr. Stuart, to get his opinion and to see if a stent would be feasible. He saw him a couple of months ago. That time, he did not feel a stent was feasible. I proceeded with PDL1 testing. This came back positive for PDL1 of 25. There were given written information about the chemotherapy regimens. Details of the regimen including potential side effects of hypersensitivity reaction, skin rash, arthralgias myalgias, nausea vomiting diarrhea, peripheral neuropathy, renal toxicity, hepatotoxicity, risk of infection, need for antibiotic, blood transfusion as well as growth factors were addressed with him. He understood and was willing to proceed. He had a Port-A-Cath placed to facilitate the chemotherapy. He started treatment 12/07. He is tolerating it very well. His symptoms of dysphagia have resolved. He is able to eat well. Database: CBC from 02/15: WBC 4, HGB 11.3, HCT 36.1, PLT 176. CMP from 02/15: Lytes WNL, BUN 18, [facility] 0.83, glucose 131. Calcium 9.2, albumin 3.5. LFTs: 0.7/180/34/29. CEA level: CT scan of the chest and abdomen from 02/10, revealed: New right lower lobe nodules. Interval increase in wall thickening of the distal thoracic esophagus and GE junction. Wall thickening of the distal thoracic esophagus GE junction increased from previous exam. Thickened trabeculated bladder wall. Enlarged prostate gland. Abnormal soft tissue at the base of the bladder similar to previous exam probably related to lobulated contour of the prostate gland. New or increased gallbladder fundus wall thickening. He is clinically doing very well. Denies dysphagia or odynophagia. Energy level has improved. I discussed his case with the radiologist. Since he had treatment delayed and scans were done after only 2 cycles, decided to give him 1 more cycle and then re-stage. PLAN: He is here for cycle 3, day 1 of his regimen. Will re-stage him after completion of 3 cycles of chemo. He will return in a couple of weeks for labs and in 3 weeks for a follow-up visit. All his and his daughter's questions were answered to his satisfaction. Thank you, CC: Dr. Hooks. Dr. Stuart. Dr. Mancini. - Time Spent With Patient Time Spent with Patient (in minutes): 30
--- NOTE | 2022-02-16 14:15 | MHC.HEMONC ---
Here for C5 D1 Folfox/Nivolumab. Labs done 02/15 reviewed. Port accessed with good blood return noted. Daughter Reny with pt. She states he is feeling well, and tolerated last treatment well. Premeds given as ordered. Treatment done and tolerated well. Dr Anna in to see pt in follow up. Home with infusion pump. Scheduled to return in 2 days for take down.
[2022-02-18] MEDS: Heparin Sodium,Porcine Flush 500 UNIT/5 ML SYRINGE IVFLUSH (11:45)
--- NOTE | 2022-02-18 14:23 | MHC.HEMONC ---
Pump take down done, port flushed with heparin and de-accessed. Tolerated treatment well. Neulasta 6mg sc given as ordered. Scheduled for next treatment in 2 weeks.
[2022-03-02 09:20] VITALS: BP 130/69; PULSE 108; RESP 18; TEMP 36.3; O2SAT 97; BMI 20.2
[2022-03-02] MEDS: Famotidine/PF 20 MG/2 ML VIAL IVPUSH (09:41)
[2022-03-02] MEDS: Acetaminophen 325 MG TABLET 650 MG PO (09:41)
[2022-03-02] MEDS: dexAMETHasone sod phosphate/NS 12 MG/50 ML PIGGYBACK 200 MG IV (09:42)
[2022-03-02] MEDS: diphenhydrAMINE HCL 50 MG/ML VIAL 25 MG IVPUSH (09:42)
[2022-03-02] MEDS: Leucovorin Calcium 660 MG in Dextrose 5 % 250 ML 141.5 MG IV (11:45)
[2022-03-02] MEDS: OXALIplatin 100 MG, OXALIplatin 40 MG in Dextrose 5 % 500 ML 264 MG IV (11:46)
[2022-03-02] MEDS: DISPOSABLE IVPUSH (13:59)
[2022-03-02] MEDS: FLUOROURACIL IVPUSH (13:59)
[2022-03-02] MEDS: FLUOROURACIL IV (14:00)
[2022-03-02] MEDS: SODIUM CHLORIDE 0.9% IV (14:00)
--- NOTE | 2022-03-02 15:22 | MHC.HEMONC ---
Pt here for C6D1 mFolfox6/Nivolumab. Labs drawn 03/01/22 reviewed-okay to receive treatment today. Daughter with pt today. States he has occasional nausea and vomiting which he takes zofran to control. c/o constipation-instructed to try Miralax daily. States has intermittent numbness and tingling in fingers and toes. Pre medicated with zofran, benadryl, decadron, tylenol. mFolfox6/Nivolumab given as ordered-tolerated well. 5FU home chemo pump started. Discharge packet given. Pt to return on 03/04/22 for Neulasta injection and chemo pump take down
[2022-03-04] MEDS: Heparin Sodium,Porcine Flush 500 UNIT/5 ML SYRINGE IVFLUSH (13:04)
--- NOTE | 2022-03-04 16:14 | MHC.HEMONC ---
Patient arrived via wheelchair for pump takedown today, his nephew was present. Right chest port flushed with Heparin and de-accessed. Patient tolerated it well. Neulasta administered in [place]VARE[place]. Next infusion scheduled for 03/16/22. Discharge packet provided. Patient departed the unit via wheelchair with his nephew.
[2022-03-16 09:35] VITALS: BP 133/68; PULSE 110; RESP 18; TEMP 36.3; O2SAT 98
[2022-03-16] MEDS: Acetaminophen 325 MG TABLET 650 MG PO (09:53)
[2022-03-16] MEDS: diphenhydrAMINE HCL 50 MG/ML VIAL 25 MG IVPUSH (09:54)
--- NOTE | 2022-03-16 10:03 | MHC.HEMONCSW ---
PATIENT IS HERE FOR TREATMENT ACCOMPANIED USUAL BY HIS DAUGHTER. VERY GOOD SPIRITS, INTERACTING WELL WITH OTHER PATIENTS AND STAFF. DENIES ANY ISSUES OR CONCERNS..COPING WELL. 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 FAMILY TAKES TURNS ASSISTING NEEDED. SUPPORTIVE COUNSELING PROVIDED. BOTH ARE AWARE OF MY AVAILABILITY.
[2022-03-16] MEDS: dexAMETHasone sod phosphate/NS 12 MG/50 ML PIGGYBACK 200 MG IV (10:17)
[2022-03-16] MEDS: Leucovorin Calcium 660 MG in Dextrose 5 % 250 ML 141.5 MG IV (11:31)
[2022-03-16] MEDS: FLUOROURACIL IVPUSH (13:52)
[2022-03-16] MEDS: DISPOSABLE IVPUSH (13:52)
[2022-03-16] MEDS: FLUOROURACIL IV (13:53)
[2022-03-16] MEDS: SODIUM CHLORIDE 0.9% IV (13:53)
--- NOTE | 2022-03-16 17:28 | MHC.HEMONC ---
Pt was here for C7D1 Nivolumab/FOLFOX, in good spirits, accompanied by dtr Dave. Pt's VSS, weight stable, no labs drawn as he had them drawn at home the previous day. Nurse reviewed pt's downward-trending Platelets w/ Dr. Andrade and pharmacist Lisseth, pt's Plt count today was 87. Pt's oxaliplatin dose was reduced to 80% in response. Pt's Nivolumab and FOLFOX doses were reviewed. Nurse informed pt and his dtr and also educated about oxaliplatin and cold-sensitivity. Pt reports a bit of painful swallowing, some intermittent constipation and nausea/vomiting, all fairly managed by PRN milk of Mag and Zofran. Pt also reports eating better, and does have some tingling/numbness in bilat fingers, but it is not painful, and denies neuropathy in feet. Nurse accessed pt's R chest implanted port w/ 20g, 3/4 bella needle, which had positive blood return. Pre-meds were admin, PO Tylenol, IV Benadryl, Zofran, and Dexamethasone. Nurse admin Nivolumab, and FOLFOX a/o, initiating take-home pump w/ 46 hr 5FU infusion, also re-educating pt and dtr about how to restart pump w/ fresh 9V battery if pump stops working, and reminding pt that the screen normally turns off while pump is working, but flashing green light indicates proper function. Pt was given d/c packet w/ his next appt on 03/18/22 for pump takedown and Neulasta injection. Pt departed via w/c, accompanied by his dtr.
[2022-03-18] MEDS: Heparin Sodium,Porcine Flush 500 UNIT/5 ML SYRINGE IVFLUSH (12:33)
--- NOTE | 2022-03-18 14:31 | MHC.HEMONC ---
Pt came in for pump takedown and Neulasta injection, arrived via w/c, 46 hr 5FU infusion had completed. Nurse flushed R implanted port w/ NS, found positive blood return, then flushed w/ heparin 500 units, then de-accessed pt's port, which was all well-tolerated. Nurse admin Neulasta 6mg SC to pt's RUQ, also well-tolerated. Pt declined d/c packet, left and confirmed he would return in 2 weeks for next cycle.
[2022-03-30 09:14] VITALS: BP 125/78; PULSE 95; RESP 17; TEMP 36.1; O2SAT 100; BMI 19.2
[2022-03-30] MEDS: Acetaminophen 325 MG TABLET 650 MG PO (09:48)
[2022-03-30] MEDS: diphenhydrAMINE HCL 50 MG/ML VIAL 25 MG IVPUSH (09:50)
[2022-03-30] MEDS: dexAMETHasone sod phosphate/NS 12 MG/50 ML PIGGYBACK 200 MG IV (09:57)
[2022-03-30] MEDS: Leucovorin Calcium 680 MG in Dextrose 5 % 250 ML 142 MG IV (11:34)
[2022-03-30] MEDS: Insulin Lispro 100 UNIT/ML 3 ML VIAL SUBCUT (11:49)
--- NOTE | 2022-03-30 12:56 | HO.HEMONCSCH ---
CT scan was sent to [facility].
--- NOTE | 2022-03-30 13:12 | P.PNHO_ITS ---
Medical Summary - Medical Summary Date of Service: 03/30/22 Chief complaint: Follow-up for: Recurrent carcinoma of the esophagus. 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 Endoscopic ultrasound on May 10: Ulcerated and friable partially obstructing mass extending from the GE junction through the cardia. Mass is circumferential hypoechoic fairly well circumscribed and rather homogeneous. Penetrates the muscularis propria. Making it a T3 lesion. Numerous small shotty lymph node largest being 7.5 mm not pathologic by size criteria. Tumor extends onto the gastric cardia. Celiac adenopathy could not be assessed. CURRENT THERAPY: Started radiation: July 09 2019. Completed low-dose carboplatin and Taxol weekly 08/13/2019. Now with disease recurrence. Started on systemic chemotherapy with FOLFOX, 12/07. Here for cycle: 4 day 14. Interval History Interval history: This is a pleasant 71 year-old gentleman here for a follow-up visit. He tells me that he is actually feeling better than before. His swallowing function has improved. Occasionally when he eats something really hard his throat would burn. He denies any pain anywhere. He has been feeling more tired lately. He denies any abdominal pain. He gets occasional nausea. He takes Zofran which helps. He gets occasional heartburn/ indigestion, for which he takes omeprazole. Bowels are working without any gross blood in it. He does get constipated. He takes MOM and fiber gummies. He has been able to eat very well. No headache no dizziness. He denies chest pain or trouble breathing. He does enjoy a good appetite. He has gained weight. He is in good spirits. Rest of the review of systems is unremarkable. Interim history:. He was in house between 01/17 and 01/19. Discharge summary: Presented with burning with urination that started a few days ago. He reported dysuria and frequency but denied hematuria as well as fever, chills, nausea or vomiting.? He is currently undergoing chemotherapy for esophageal cancer at [facility] [place].? White blood cell count was noted to be elevated at 46,000, lactic acid 2.7, tachycardia and tachypnea.? Urinalysis was positive for UTI, chest x- ray: Negative.? He was given a dose of Rocephin IV fluids in the ER.? Was admitted for further management and treatment of severe sepsis secondary to urinary tract infection. Severe sepsis secondary to urinary tract infection. Treated with IV Rocephin. Resolved Leukocytosis, tachycardia, tachypnea, lactic acidosis. Blood cultures up to 24 hours: Negative. Previous history: At his previous visit, in November: He tells me that he has had some difficulty swallowing lately. It is mostly to solids. Liquids go down easily. It is a level 6 on 1-10 scale. Sometimes while eating he has a choking sensation. He is mostly taking soft diet including oatmeal, soups and rice. He tries to avoid chicken since it causes acid reflux. Patient was seen here back in mid . He complained that over the past couple of weeks he noted a cough. Would bring up clear sputum. He had been using DayQuil and NyQuil for symptoms. His appetite had declined. He denied obvious dysphagia or odynophagia. He had a CT scan of the chest on 10/08/2021 which revealed: Limited evaluation of pulmonary nodules due to artifact from respiratory motion. The 3 mm calcified right upper lobe nodule is stable. Other previously identified pulmonary nodules are not identified. Interval increase in wall thickening of the distal thoracic esophagus, GE junction and proximal stomach compared to January 2020 exam. On November 17, he underwent an upper endoscopy by Dr. Mancini which revealed: Esophagus: There was ulceration and friability with heaped up mucosa beginning at about 34 cm and extending to the EG junction at 36 cm and into the stomach for approximately 1 cm to 2 cm below this. Biopsies were obtained from the abnormal mucosa. The mucosa was ulcerated and friable with heaped up margins suspicious for recurrent tumor as opposed to just changes from his previous chemoradiation treatments. The scope was easily passed into the stomach with minimal narrowing at the EG junction. Pathology revealed: Superficial fragments of adenocarcinoma, poorly differentiated from EG junction mass, 36 cm, 34 cm. Review of Systems - Constitutional Reports no additional constitutional complaints, Reports lack of energy, Denies weight loss - Eyes Reports no additional eye complaints - ENT Reports no additional ear, nose, mouth, and throat complaints - Cardiovascular Reports no additional cardiovascular complaints - Respiratory Reports no additional respiratory complaints - Gastrointestinal Reports no additional gastrointestinal complaints - Genitourinary Genitourinary: Reports no additional male genitourinary complaints - Musculoskeletal Reports no additional musculoskeletal complaints - Integumentary/Breasts Skin/Breast: Reports no additional skin complaints - Neurologic Reports no additional neurologic complaints, Denies behavioral changes, Denies weakness - Psychiatric Reports no additional psychiatric complaints - Endocrine Reports no additional endocrine complaints - Hematologic/Lymphatic Reports no additional hematologic/lymphatic complaints - Allergic/Immunologic Reports no additional allergic/immunologic complaints [facility] Medical History: Medical History (Last Reviewed 03/30/22 @ 13:33 by Jacob Tracy RN) Adenocarcinoma of cardio-esophageal junction Anxiety Benign essential hypertension Constipation Depression Diabetes type 2, uncontrolled Diabetic nephropathy associated with type 2 diabetes mellitus Diabetic neuropathy Diabetic neuropathy associated with type 2 diabetes mellitus Dyslipidemia HLD (hyperlipidemia) Hypertension Keratotic lesion Left below-knee amputee longterm (current) use of insulin Pure hypercholesterolemia Type 2 diabetes mellitus with diabetic polyneuropathy Vitamin D deficiency Functional capacity: uses cane/walker Patient : No Family History: Family History (Last Reviewed 03/30/22 @ 13:33 by Jacob Tracy RN) Father Diabetes Hypertension Mother No problems noted. Surgical History: Surgical History (Last Reviewed 03/30/22 @ 13:33 by Jacob Tracy RN) History of atherectomy History of left below knee amputation Status post below-knee amputation of left lower extremity Social History: Social History (Last Reviewed 03/30/22 @ 13:33 by Jacob Tracy RN) Living Situation History: Household Members: Family Housing: House Tobacco History: Patient Tobacco Use Status: Never used Tobacco e-Cigarette/Vaping Use: Never Used Second Hand Smoke Exposure: Yes Advance Directives: Advance Directives Date on File: 08/19/20 Nutrition Assessment: Patient : No Occupation Assessmet: service: No Current occupational status: retired Current occupational status: disabled Oncology Screenings - ECOG Performance Status ECOG Performance Status: 1 Home Medications and Allergies Current Medications: Current Medications Acetaminophen (Acetaminophen 325 Mg Tablet) 650 mg PO ONCE COURTNEY Stop: 03/30/22 23:59 Last Admin: 03/30/22 09:48 Dose: 650 mg Documented by: Diphenhydramine HCl (Diphenhydramine Hcl 50 Mg/Ml Vial) 25 mg IVPUSH ONCE COURTNEY Stop: 03/30/22 23:59 Last Admin: 03/30/22 09:50 Dose: 25 mg Documented by: Dexamethasone Sodium Phosphate (Decadron) 12 mg in 50 mls @ 200 mls/hr IV ONCE COURTNEY Stop: 03/30/22 23:59 Last Infusion: 03/30/22 10:23 Dose: Infused Documented by: Ondansetron HCl (Zofran) 16 mg in 50 mls @ 200 mls/hr IV ONCE COURTNEY Stop: 03/30/22 23:59 Last Infusion: 03/30/22 09:49 Dose: Infused Documented by: Fluorouracil 4,050 mg/ Sodium (Chloride) 92 mls @ 2 mls/hr IV ONCE COURTNEY Stop: 03/30/22 23:59 Fluorouracil 675 mg/ IV (Miscellaneous Supplies) 13.5 mls @ 0 mls/hr IVPUSH ONCE COURTNEY Stop: 03/30/22 23:59 Leucovorin Calcium 680 mg/ (Dextrose) 284 mls @ 142 mls/hr IV ONCE COURTNEY Stop: 03/30/22 23:59 Last Admin: 03/30/22 11:34 Dose: 142 mls/hr Documented by: Nivolumab 240 mg/ Sodium (Chloride) 124 mls @ 248 mls/hr IV ONCE COURTNEY Stop: 03/30/22 23:59 Last Infusion: 03/30/22 11:04 Dose: Infused Documented by: Oxaliplatin 100 mg/ (Oxaliplatin 20 mg/ Dextrose) 524 mls @ 262 mls/hr IV ONCE COURTNEY Stop: 03/30/22 23:59 Last Admin: 03/30/22 11:33 Dose: 262 mls/hr Documented by: Home Medications Medication Instructions Recorded Confirmed Type insulin aspar prot-insulin aspart 30 unit SUBCUT DAILY@0730 ml 07/06/21 03/30/22 History 100 unit/mL (70-30) subcutaneous pen (Novolog Mix 70-30FlexPen U-100) atorvastatin 40 mg tablet 40 mg PO BEDTIME 01/17/22 03/30/22 History docusate sodium 100 mg capsule 200 mg PO BEDTIME 01/17/22 03/30/22 History insulin aspar prot-insulin aspart 22 unit SUBCUT DAILY@1700 01/17/22 03/30/22 History 100 unit/mL (70-30) subcutaneous pen (Novolog Mix 70-30FlexPen U-100) omeprazole 20 mg capsule,delayed 20 mg PO BID@0630,1630 01/17/22 03/30/22 History release Allergies Allergy/AdvReac Type Severity Reaction Status Date / Time No Known Allergies Allergy Verified 03/30/22 13:33 Exam Vital signs: Vital Signs Temp 97.0 F 03/30/22 09:14 Pulse 95 03/30/22 09:14 Resp 17 03/30/22 09:14 BP 125/78 03/30/22 09:14 Pulse Ox 100 03/30/22 09:14 Intake & Output 03/29/22 03/30/22 03/30/22 18:59 06:59 18:59 Intake Total 224 / 224 Balance 224 / 224 Intake: Intake, IV Amount 224 / 224 Nivolumab 240 mg In 0.9 % 124 / 124 Sodium Chloride 100 ml @ 248 mls/hr IV ONCE COURTNEY Rx#: [id number] Ondansetron HCL/NS 16 mg In 50 50 / 50 ml @ 200 mls/hr IV ONCE COURTNEY Rx# :[id number] dexAMETHasone sod phosphate/NS 50 / 50 12 mg In 50 ml @ 200 mls/hr IV ONCE COURTNEY Rx#:[id number] Other: Weight 57.4 kg Cavalier Weight in Grams 84144 Weight 57.4 kg BMI result Body Mass Index 19.2 - Constitutional Present: no acute distress - Routine HEENT Exam Head: Present: normal inspection Eye: Present: normal appearance ENT: Present: mucous membranes moist - Routine Neck Exam Present: full ROM - Routine Respiratory Exam Present: CTAB - Routine Cardiovascular Exam Cardiovascular: Present: RRR, S1, S2 - Routine Abdominal Exam Present: soft, nontender - Routine Extremities Exam Present: nontender - Routine Back/Spine/Pelvis Exam Back/Spine: Present: full ROM - Routine Skin Exam Present: intact - Routine Neurological Exam Present: alert, oriented X3 - Routine Psychiatric Exam Present: normal affect Data - Labs CBC & Chem 7: 01/11/22 10:37 01/11/22 10:37 Assessment and Plan Patient Active problem list reviewed?: Yes (1) Carcinoma of thoracic esophagus Status: Acute Assessment and plan: This is a pleasant 71 year-old gentleman diagnosed with Carcinoma of the Esophagus, back in summer. Upper endoscopy revealed a 4 cm mass extending from the EG junction to 1-2 cm below the EG junction. Pathology: Superficial fragments of adenocarcinoma, moderately differentiated, arising in a background of Mcintyre's esophagus. HER2: 0. Endoscopic ultrasound May 10 2019: T3, N0 lesion. PET scan revealed disease confined to the esophagus. He underwent neoadjuvant chemoradiation. He received carboplatin and Taxol weekly. PET scan on 10/04/2019 showed: Mild improvement in uptake in the distal esophagus and fundus of the stomach. C6 cervical vertebra showed uptake question of a lesion. Stable small right lower lung nodule. No uptake. Bone scan from 10/22/19 revealed: Mild abnormalities in several ribs likely representing chronic rib fractures an ongoing bone remodeling. Mild on specific abnormalities is all related to arthritis. He saw Dr. Stuart. He did offer surgical resection however patient was concerned about the risks involved and so declined. EGD from 12/07/2019: EG junction was located at 39 cm. There were 2 areas of ulceration 1 measuring 10 mm and 1 measuring 5 mm at the EG junction. The previous tumor was not seen. No stricture. Pathology: GE junction mucosa with moderate acute and chronic inflammation, mucin and detached fragments of granulation tissue consistent with ulcer and esophagitis, negative for dysplasia or malignancy. CT scan from 01/22/20 revealed: Stable pulmonary nodules compared to 03/15 019. He had an upper endoscopy by Dr. Mancini in November of 2019 which revealed: The EG junction was located at 39 cm. There were 2 areas of ulceration, one measuring approximately 10 mm and one measuring approximately 5 mm at the EG junction. The previous tumor was not seen. The scope passed easily into the stomach. There was no stricture. Pathology: A. GE junction, biopsies: Gastroesophageal junctional mucosa with moderate acute and chronic inflammation, mucin and detached fragments of granulation tissue consistent with ulcer and esophagitis; negative for intestinal metaplasia; negative for dysplasia or malignancy. He has been feeling reasonably well. He denies any further dysphagia. However lately he has had a cough with sputum. His appetite is not that good and he has been losing weight. He had a CT scan of the chest on 10/08/2021 which revealed: Limited evaluation of pulmonary nodules due to artifact from respiratory motion. The 3 mm calcified right upper lobe nodule is stable. Other previously identif ied pulmonary nodules are not identified. Interval increase in wall thickening of the distal thoracic esophagus, GE junction and proximal stomach compared to January 2020 exam. I referred him to Dr. Mancini, who proceeded with an upper endoscopy, on 11/17 which revealed: On November 17, he underwent an upper endoscopy by Dr. Mancini which revealed: Esophagus: There was ulceration and friability with heaped up mucosa beginning at about 34 cm and extending to the EG junction at 36 cm and into the stomach for approximately 1 cm to 2 cm below this. Biopsies were obtained from the abnormal mucosa. The mucosa was ulcerated and friable with heaped up margins s uspicious for recurrent tumor as opposed to just changes from his previous chemoradiation treatments. The scope was easily passed into the stomach with minimal narrowing at the EG junction. Pathology revealed: Superficial fragments of adenocarcinoma, poorly differentiated from EG junction mass, 36 cm, 34 cm. HER2/April: Negative. CEA level: 12.30. I shared the results with him and his daughters. I offered them systemic chemotherapy with FOLFOX/XELOX plus/minus, nivolumab based chemotherapy.(based upon the PDL1 status.) They are going to discuss it with the family and get back to me about their decision. In the meantime will have him consult with Dr. Stuart, to get his opinion and to see if a stent would be feasible. He saw him a couple of months ago. That time, he did not feel a stent was feasible. I proceeded with PDL1 testing. This came back positive for PDL1 of 25. There were given written information about the chemotherapy regimens. Details of the regimen including potential side effects of hypersensitivity reaction, skin rash, arthralgias myalgias, nausea vomiting diarrhea, peripheral neuropathy, renal toxicity, hepatotoxicity, risk of infection, need for antibiotic, blood transfusion as well as growth factors were addressed with him. He understood and was willing to proceed. He had a Port-A-Cath placed to facilitate the chemotherapy. He started treatment 12/07. He is tolerating it very well. His symptoms of dysphagia have resolved. He is able to eat well. Database: CBC from 02/15: WBC 4, HGB 11.3, HCT 36.1, PLT 176. CMP from 02/15: Lytes WNL, BUN 18, FOUNDRY MELT SUPERVISOR 0.83, glucose 131. Calcium 9.2, albumin 3.5. LFTs: 0.7/180/34/29. CEA level: 5.80. CT scan of the chest and abdomen from 02/10, revealed: New right lower lobe nodules. Interval increase in wall thickening of the distal thoracic esophagus and GE junction. Wall thickening of the distal thoracic esophagus GE junction increased from previous exam. Thickened trabeculated bladder wall. Enlarged prostate gland. Abnormal soft tissue at the base of the bladder similar to previous exam probably related to lobulated contour of the prostate gland. New or increased gallbladder fundus wall thickening. Database: Labs from 03/29: CBC: WBC 9.9, HGB 11, HCT 34.8, MCV 89.2, PLT 95. CMP: Lytes WNL, glucose 154, Hermelindo 9.1, alb 3. LFTs: 0.7/243//21. CEA: 5.80. He is clinically doing very well. Denies dysphagia or odynophagia. Energy level is somewhat low. PLAN: He is here for cycle 4, day 14 of his regimen. Will re-stage him after completion of this cycle of chemo. He will return in a couple of weeks for labs and in 3 weeks for a follow-up visit. All his and his daughter's questions were answered to his satisfaction. Thank you, CC: Dr. Hooks. Dr. Stuart. Dr. Mancini. - Time Spent With Patient Time Spent with Patient (in minutes): 30
[2022-03-30] MEDS: FLUOROURACIL IVPUSH (14:08)
[2022-03-30] MEDS: DISPOSABLE IVPUSH (14:08)
[2022-03-30] MEDS: fluorouraciL 4,050 MG in 0.9 % Sodium Chloride 11 ML IV (14:09)
--- NOTE | 2022-03-30 16:22 | MHC.HEMONC ---
Pt was here for C8D1 Nivolumab/FOLFOX and Onc f/u, said he feels well, accompanied by dtr Dave. Pt's VSS, weight stable, home labs drawn the previous day. Pt's Platelets were mildly improved since 2 weeks ago, from 87 to 95, Dr. Anna and pharmacist Kian were informed, pt's oxaliplatin dose was continued at 82%. in response. Pt's Nivolumab and FOLFOX doses were reviewed. Nurse informed pt and his dtr and also educated about oxaliplatin and cold-sensitivity. Pt reports a bit of painful swallowing, some intermittent constipation and nausea/vomiting, all fairly managed by PRN milk of Mag and Zofran. Pt also reports eating better, and does have some tingling/numbness in bilat fingers, but it is not painful, and denies neuropathy in feet. Nurse accessed pt's R chest implanted port w/ 20g, 3/4 bella needle, which had positive blood return. Pre-meds were admin, PO Tylenol, IV Benadryl, Zofran, and Dexamethasone. Nurse admin Nivolumab, and FOLFOX a/o, initiating take-home pump w/ 46 hr 5FU infusion, also re-educating pt and dtr about how to restart pump w/ fresh 9V battery if pump stops working, and reminding pt that the screen normally turns off while pump is working, but flashing green light indicates proper function. Pt was given d/c packet w/ his next appt on 03/18/22 for pump takedown and Neulasta injection. Pt departed via w/c, accompanied by his dtr.
--- NOTE | 2022-03-30 16:26 | MHC.HEMONC ---
Pt was here for C8D1 Nivolumab/FOLFOX and Onc f/u, said he feels well, accompanied by dtr Dave. Pt's VSS, weight stable, home labs drawn the previous day. Pt's Platelets were mildly improved since 2 weeks ago, from 87 to 95, Dr. Anna and pharmacist Kian were informed, pt's oxaliplatin dose was continued at 82% today. Pt reports some minimal Nausea, and some recent difficulty swallowing, also some intermittent constipation, all fairly managed by PRN milk of Mag and Zofran. Pt reports minimal tingling in bilat fingers. Nurse accessed pt's R chest implanted port w/ 20g, 3/4 bella needle, which had positive blood return. Pre-meds were admin, PO Tylenol, IV Benadryl, Zofran, and Dexamethasone. Dr. Anna was in to meet w/ pt and his dtr, determined pt is due for f/u CT scan. Dr. Anna presented printed order for CT chest to TYLER Brush for entry into order academic associate. Pt reported he did not take his insulin this morning, but his blood sugar 2 hrs after breakfast was 258. Dr. Anna was informed, pt apparently takes Humalog 70/30, said he usually takes 10 or 20 units depending on his sugar. Pt checked blood sugar right before lunch, was 179, nurse admin Humalog 5 units SC a/o by Dr. Anna. Nurse admin Nivolumab, and FOLFOX a/o, initiating take-home pump w/ 46 hr 5FU infusion. Pt was given d/c packet w/ his next appt on 04/01/22 for pump takedown and Neulasta injection. Pt's next cycle is C9D1 on 04/13/22, so [facility] from [facility] was contacted and confirmed they will not be operating on 04/12 for home labs, so they will draw pt on Tue, 04/09 for next cycle's pre-chemo labs. Pt departed via w/c, accompanied by his dtr.
[2022-04-01] MEDS: Heparin Sodium,Porcine Flush 500 UNIT/5 ML SYRINGE IVFLUSH (13:30)
--- NOTE | 2022-04-01 15:53 | MHC.HEMONC ---
Pt was in for pump takedown and Neulasta injection, 46 hr 5FU infusion had completed, pump was beeping, nurse removed battery, flushed pt's R chest implanted port, found pos blood return, flushed w/ 500 units heparin, de-accessed port, well-tolerated. Nurse admin Neulasta 6mg SC to pt's RUE, also well-tolerated. Pt declined d/c packet, but confirmed he would return for C9D1 Nivolumab/FOLFOX on 04/13/22, labs to be drawn at home.
[2022-04-13 09:38] LABS: MANUAL DIFF FLAG NO
[2022-04-13 09:52] LABS: Basophils Percent Auto 0.5 % (0-2); Eosinophils Absolute Auto 0.1 X10*3/uL (0.0-0.4); Eosinophils Percent Auto 1.4 % (0-4); Hematocrit 36.2 % (42.0-52.0); Hemoglobin 11.3 g/dl (14.0-18.0); Imm Gran Pct Auto 1.6 % (0.0-0.4); Lymphocytes Absolute Auto 2.6 X10*3/uL (1.2-4.9); Lymphocytes Percent Auto 41.2 % (20-40); Mean Corpuscular HGB Conc 31.2 g/dl (31.0-36.0); Mean Corpuscular Hemoglobin 28.9 pg (27.0-33.0); Mean Corpuscular Volume 92.6 fL (80.0-98.0); Mean Platelet Volume 10.4 fL (9.4-12.4); Monocytes Absolute Auto 0.6 X10*3/uL (0.1-1.2); Neutrophils Absolute Auto 2.9 x10*3/uL (2.0-8.3); Neutrophils Percent Auto 45.3 % (45-73); Platelet Count 76 X10*3/uL (160-400); Red Blood Count 3.91 X10*6/uL (4.60-5.80); Red Cell Distribution Width 21.2 % (11.0-16.0); White Blood Count 6.3 X10*3/uL (4.8-10.8)
[2022-04-13 10:07] LABS: Alanine Aminotransferase 27 U/L (0-40); Albumin Level 3.3 g/dL (3.5-5.0); Alkaline Phosphatase 275 U/L (39-117); Anion Gap 11 (12-20); Aspartate Amino Transferase 33 U/L (5-37); Bilirubin Direct 0.3 mg/dL (0.0-0.5); Bilirubin Total 0.8 mg/dL (0.0-1.0); Blood Urea Nitrogen 5 mg/dL (9-16); Calcium 9.3 mg/dL (8.4-10.2); Carbon Dioxide 26 mmol/L (22-29); Chloride 108 mmol/L (96-108); Creatinine Clr Calc Pharmacy 79.7; Estimated Glomerular Filt Rate > 60; Glucose Random 184 mg/dL (60-115); Potassium 4.4 mmol/L (3.3-5.1); Sodium 141 mmol/L (135-145); Total Protein 6.2 g/dL (6.5-8.0)
--- NOTE | 2022-04-13 17:40 | MHC.HEMONC ---
Pt was in for C9D1 Nivolumab/FOLFOX, labs were drawn at home on 04/09/22, reviewed by Dr. Anna and nurse, noted that pt's Plt had dropped to 28 and ANC was 0.8. Since 4 days had passed, provider asked that pt have labs drawn again, and today pt's Plt improved to 76 and ANC improved to 2.9, however, pt's dtr states that he has had much reduced appetite this week and decision was made to hold pt's tx x1 week until 04/20/22. Nurse notified pharmacist Kian and rescheduled pt's C9D1 for 04/20/22. Nurse also informed [facility] from [facility] and she updated pt's home draw schedule to occur next 04/19/22, then every 2 weeks, to coordinate w/ updated chemo schedule. Nurse informed pt's dtr Reny, who also said she was hoping to take her father on vacation last week of May. Nurse to f/u w/ Dr. Anna about putting his tx on hold midway through May,.
--- NOTE | 2022-04-19 14:31 | MHC.HEMONC ---
Pt's dtr Reny called, asked about results of his pre-chemo labs from yesterday. Nurse reported that his Plt are improved from 76 on 04/13 to 232, and his other labs are stable. Also, dtr states that her father is feeling a bit better too, less fatigued, less nauseous. Nurse confirmed pt will be in tomorrow morning for next cycle.
[2022-04-20 09:18] VITALS: BP 124/64; PULSE 91; RESP 8; TEMP 36.4; O2SAT 100; BMI 19.4
[2022-04-20] MEDS: diphenhydrAMINE HCL 50 MG/ML VIAL 25 MG IVPUSH (10:09)
[2022-04-20] MEDS: Acetaminophen 325 MG TABLET 650 MG PO (10:09)
[2022-04-20] MEDS: dexAMETHasone sod phosphate/NS 12 MG/50 ML PIGGYBACK 200 MG IV (10:46)
[2022-04-20] MEDS: Leucovorin Calcium 660 MG in Dextrose 5 % 250 ML 141.5 MG IV (12:01)
[2022-04-20] MEDS: OXALIplatin 100 MG, OXALIplatin 40 MG in Dextrose 5 % 500 ML 264 MG IV (12:01)
[2022-04-20] MEDS: FLUOROURACIL IVPUSH (14:06)
[2022-04-20] MEDS: DISPOSABLE IVPUSH (14:06)
--- NOTE | 2022-04-20 16:59 | MHC.HEMONC ---
Pt arrived for C9D8 (was D1) Nivolumab/FOLFOX, arrived via w/c, accompanied by dtr Reny, had his last week's chemo delayed x1 week d/t feeling very fatigued, said he feels less tired this week, also has baseline tingling sensation in bilat hands. Pt's VSS, weight stable, home labs drawn the previous day, platelets improved significantly since last week, from [address] Anna and pharmacist Kian were informed, pt's oxaliplatin dose was increased to 100% today, after being kept at 80% for the last couple cycles r/t lower Plt count. Nurse accessed pt's R chest implanted port w/ 20g, 3/4 bella needle, w/ positive blood return. Pre-meds were admin, PO Tylenol, IV Benadryl, Zofran, and Dexamethasone. Pt's dtr Reny asked about results of pt's CT scan. Dr. Anna to call pt's dtr at home to discuss. Dtr also asked about pt's upcoming plans for vacation w/ his family from 06/07 - 06/15, were hoping that pt could get a break from chemo starting from the week before. Dr. Anna agreed that pt may have a break. Nurse booked out pt's next 2 cycles, w/ C11D1 on 05/18/22, but did not schedule C12D1 on 06/01/22. Nurse reviewed this tentative schedule w/ pt's dtr. Nurse admin Nivolumab, and FOLFOX a/o, initiating take-home pump w/ 46 hr 5FU infusion. Pt was given d/c packet w/ his next appt on 04/22/22 for pump takedown and Neulasta injection. Pt's next cycle is C10D1 on 05/04/22, home draw to draw pt on 05/03 for next cycle's pre-chemo labs. Pt departed via w/c, accompanied by his dtr.
[2022-04-23 12:15] VITALS: BP 104/64; PULSE 114
[2022-04-23] MEDS: Heparin Sodium,Porcine Flush 500 UNIT/5 ML SYRINGE IVFLUSH (12:18)
[2022-05-04 09:12] VITALS: BP 122/72; PULSE 99; RESP 18; TEMP 36.5; O2SAT 99; BMI 18.7
--- NOTE | 2022-05-04 09:30 | P.PNHO_ITS ---
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 Endoscopic ultrasound on May 10: Ulcerated and friable partially obstructing mass extending from the GE junction through the cardia. Mass is circumferential hypoechoic fairly well circumscribed and rather homogeneous. Penetrates the muscularis propria. Making it a T3 lesion. Numerous small shotty lymph node largest being 7.5 mm not pathologic by size criteria. Tumor extends onto the gastric cardia. Celiac adenopathy could not be assessed. CURRENT THERAPY: Started radiation: July 09 2019. Completed low-dose carboplatin and Taxol weekly 08/13/2019. Now with disease recurrence. Started on systemic chemotherapy with FOLFOX, plus Nivolumab, 12/07. Here for cycle: 5 day 14. Interval History Interval history: This is a pleasant 71 year-old gentleman here for a follow-up visit. He tells me that he is feeling reasonably well. He is swallowing better than previously. He has little bit of difficulty swallowing solids but he is still able to get them down. He denies any pain. He has good energy level mostly. However the week after the chemo he feels a bit tired. No headache no dizziness. He denies chest pain or trouble breathing. Sometimes they have a little bit of a cough at night The cough syrup did help. He ran out of it. He denies any abdominal pain. He gets occasional nausea. He takes Zofran which helps. He gets occasional heartburn/ indigestion, for which he takes omeprazole. Bowels are working without any gross blood in it. He does get constipated. He takes MOM and fiber gummies. He has been able to eat very well. He does enjoy a good appetite. His weight is stable. He is in good spirits. Rest of the review of systems is unremarkable. Interim history:. He was in house between 01/17 and 01/19/22. Discharge summary: Presented with burning with urination that started a few days ago. He reported dysuria and frequency but denied hematuria as well as fever, chills, nausea or vomiting.? He is currently undergoing [place] [facility] [place] White blood cell count was noted to be elevated at 46,000, lactic acid 2.7, tachycardia and tachypnea.? Urinalysis was positive for UTI, chest x- ray: Negative.? He was given a dose of Rocephin IV fluids in the ER.? Was admitted for further management and treatment of severe sepsis secondary to urinary tract infection. Severe sepsis secondary to urinary tract infection. Treated with IV Rocephin. Resolved Leukocytosis, tachycardia, tachypnea, lactic acidosis. Blood cultures up to 24 hours: Negative. Previous history: At his previous visit, in November,: He tells me that he has had some difficulty swallowing lately. It is mostly to solids. Liquids go down easily. It is a level 6 on 1-10 scale. Sometimes while eating he has a choking sensation. He is mostly taking soft diet including oatmeal, soups and rice. He tries to avoid chicken since it causes acid reflux. Patient was seen here back in mid . He complained that over the past couple of weeks he noted a cough. Would bring up clear sputum. He had been using DayQuil and NyQuil for symptoms. His appetite had declined. He denied obvious dysphagia or odynophagia. He had a CT scan of the chest on 10/08/2021 which revealed: Limited evaluation of pulmonary nodules due to artifact from respiratory motion. The 3 mm calcified right upper lobe nodule is stable. Other previously identified pulmonary nodules are not identified. Interval increase in wall thickening of the distal thoracic esophagus, GE junction and proximal stomach compared to January 2020 exam. On November 17, he underwent an upper endoscopy by Dr. Mancini which revealed: Esophagus: There was ulceration and friability with heaped up mucosa beginning at about 34 cm and extending to the EG junction at 36 cm and into the stomach for approximately 1 cm to 2 cm below this. Biopsies were obtained from the abnormal mucosa. The mucosa was ulcerated and friable with heaped up margins suspicious for recurrent tumor as opposed to just changes from his previous chemoradiation treatments. The scope was easily passed into the stomach with minimal narrowing at the EG junction. Pathology revealed: Superficial fragments of adenocarcinoma, poorly differentiated from EG junction mass, 36 cm, 34 cm. Review of Systems - Constitutional Reports no additional constitutional complaints - Eyes Reports no additional eye complaints - ENT Reports no additional ear, nose, mouth, and throat complaints - Cardiovascular Reports no additional cardiovascular complaints - Respiratory Reports no additional respiratory complaints - Gastrointestinal Reports no additional gastrointestinal complaints - Genitourinary Genitourinary: Reports no additional male genitourinary complaints - Musculoskeletal Reports no additional musculoskeletal complaints - Integumentary/Breasts Skin/Breast: Reports no additional skin complaints - Neurologic Reports no additional neurologic complaints, Denies behavioral changes, Denies weakness - Psychiatric Reports no additional psychiatric complaints - Endocrine Reports no additional endocrine complaints - Hematologic/Lymphatic Reports no additional hematologic/lymphatic complaints - Allergic/Immunologic Reports no additional allergic/immunologic complaints PMFSH Functional capacity: uses cane/walker Patient : No Family History: Family History (Last Reviewed 03/30/22 @ 13:33 by Jacob Tracy RN) Father Diabetes Hypertension Mother No problems noted. Surgical History: Surgical History (Last Reviewed 03/30/22 @ 13:33 by Jacob Tracy RN) History of atherectomy History of left below knee amputation Social History: Social History (Last Reviewed 03/30/22 @ 13:33 by Jacob Tracy RN) Living Situation History: Household Members: Family Housing: House Tobacco History: Patient Tobacco Use Status: Never used Tobacco e-Cigarette/Vaping Use: Never Used Second Hand Smoke Exposure: Yes Advance Directives: Advance Directives Date on File: 08/19/20 Nutrition Assessment: Patient : No Occupation Assessmet: service: No Current occupational status: retired Current occupational status: disabled Oncology Screenings - ECOG Performance Status ECOG Performance Status: 1 Home Medications and Allergies Current Medications: Current Medications Acetaminophen (Acetaminophen 325 Mg Tablet) 650 mg PO ONCE COURTNEY Stop: 05/04/22 23:59 Diphenhydramine HCl (Diphenhydramine Hcl 50 Mg/Ml Vial) 25 mg IVPUSH ONCE COURTNEY Stop: 05/04/22 23:59 Dexamethasone Sodium Phosphate (Decadron) 12 mg in 50 mls @ 200 mls/hr IV ONCE COURTNEY Stop: 05/04/22 23:59 Ondansetron HCl (Zofran) 16 mg in 50 mls @ 200 mls/hr IV ONCE COURTNEY Stop: 05/04/22 23:59 Fluorouracil 4,000 mg/ Sodium (Chloride) 92 mls @ 2 mls/hr IV ONCE COURTNEY Stop: 05/04/22 23:59 Fluorouracil 675 mg/ IV (Miscellaneous Supplies) 13.5 mls @ 0 mls/hr IVPUSH ONCE COURTNEY Stop: 05/04/22 23:59 Leucovorin Calcium 670 mg/ (Dextrose) 283.5 mls @ 141.75 mls/hr IV ONCE COURTNEY Stop: 05/04/22 23:59 Nivolumab 240 mg/ Sodium (Chloride) 124 mls @ 248 mls/hr IV ONCE COURTNEY Stop: 05/04/22 23:59 Oxaliplatin 100 mg/ (Oxaliplatin 40 mg/ Dextrose) 528 mls @ 264 mls/hr IV ONCE COURTNEY Stop: 05/04/22 23:59 Home Medications Medication Instructions Recorded Confirmed Type insulin aspar prot-insulin aspart 30 unit subcut DAILY@0730 07/06/21 03/30/22 History 100 unit/mL (70-30) subcutaneous pen (Novolog Mix 70-30FlexPen U-100) atorvastatin 40 mg tablet 40 mg PO BEDTIME 01/17/22 03/30/22 History docusate sodium 100 mg capsule 200 mg PO BEDTIME 01/17/22 03/30/22 History Allergies Allergy/AdvReac Type Severity Reaction Status Date / Time No Known Allergies Allergy Verified 03/30/22 13:33 Exam Vital signs: Vital Signs Temp 97.7 F 05/04/22 09:12 Pulse 99 05/04/22 09:12 Resp 18 05/04/22 09:12 BP 122/72 05/04/22 09:12 Pulse Ox 99 05/04/22 09:12 O2 Del Method 05/04/22 09:12 Intake & Output 05/03/22 05/04/22 05/04/22 18:59 06:59 18:59 Other: Weight 56 kg Weight in Grams 32423 Weight 56 kg BMI result Body Mass Index 18.7 - Constitutional Present: no acute distress - Routine HEENT Exam Head: Present: normal inspection Eye: Present: normal appearance ENT: Present: mucous membranes moist - Routine Neck Exam Present: full ROM - Routine Respiratory Exam Present: CTAB - Routine Cardiovascular Exam Cardiovascular: Present: RRR, S1, S2 - Routine Abdominal Exam Present: soft, nontender - Routine Extremities Exam Present: nontender - Routine Back/Spine/Pelvis Exam Back/Spine: Present: full ROM - Routine Skin Exam Present: intact - Routine Neurological Exam Present: alert, oriented X3 - Routine Psychiatric Exam Present: normal affect Data - Labs CBC & Chem 7: 04/13/22 09:36 04/13/22 09:36 Assessment and Plan Patient Active problem list reviewed?: Yes (1) Carcinoma of thoracic esophagus Status: Acute Assessment and plan: This is a pleasant 71 year-old gentleman diagnosed with Carcinoma of the Esophagus, back in summer. Upper endoscopy revealed a 4 cm mass extending from the EG junction to 1-2 cm below the EG junction. Pathology: Superficial fragments of adenocarcinoma, moderately differentiated, arising in a background of Mcintyre's esophagus. HER2: 0. Endoscopic ultrasound May 10 2019: T3, N0 lesion. PET scan revealed disease confined to the esophagus. He underwent neoadjuvant chemoradiation. He received carboplatin and Taxol weekly. PET scan on 10/04/2019 showed: Mild improvement in uptake in the distal esophagus and fundus of the stomach. C6 cervical vertebra showed uptake question of a lesion. Stable small right lower lung nodule. No uptake. Bone scan from 10/22/19 revealed: Mild abnormalities in several ribs likely representing chronic rib fractures an ongoing bone remodeling. Mild on specific abnormalities is all related to arthritis. He saw Dr. Stuart. He did offer surgical resection however patient was concerned about the risks involved and so declined. EGD from 12/07/2019: EG junction was located at 39 cm. There were 2 areas of ulceration 1 measuring 10 mm and 1 measuring 5 mm at the EG junction. The previous tumor was not seen. No stricture. Pathology: GE junction mucosa with moderate acute and chronic inflammation, mucin and detached fragments of granulation tissue consistent with ulcer and esophagitis, negative for dysplasia or malignancy. CT scan from 01/22/20 revealed: Stable pulmonary nodules compared to 03/15 019. He had an upper endoscopy by Dr. Mancini in November of 2019 which revealed: The EG junction was located at 39 cm. There were 2 areas of ulceration, one measuring approximately 10 mm and one measuring approximately 5 mm at the EG junction. The previous tumor was not seen. The scope passed easily into the stomach. There was no stricture. Pathology: A. GE junction, biopsies: Gastroesophageal junctional mucosa with moderate acute and chronic inflammation, mucin and detached fragments of granulation tissue consistent with ulcer and esophagitis; negative for intestinal metaplasia; negative for dysplasia or malignancy. He has been feeling reasonably well. He denies any further dysphagia. However lately he has had a cough with sputum. His appetite is not that good and he has been losing weight. He had a CT scan of the chest on 10/08/2021 which revealed: Limited evaluation of pulmonary nodules due to artifact from respiratory motion. The 3 mm calcified right upper lobe nodule is stable. Other previously identified pulmonary nodules are not identified. Interval increase in wall thickening of the distal thoracic esophagus, GE junction and proximal stomach compared to January 2020 exam. I referred him to Dr. aMncini, who proceeded with an upper endoscopy, on 11/17 which revealed: On November 17, he underwent an upper endoscopy by Dr. Mancini which revealed: Esophagus: There was ulceration and friability with heaped up mucosa beginning at about 34 cm and extending to the EG junction at 36 cm and into the stomach for approximately 1 cm to 2 cm below this. Biopsies were obtained from the abnormal mucosa. The mucosa was ulcerated and friable with heaped up margins suspicious for recurrent tumor as opposed to just changes from his previous chemoradiation treatments. The scope was easily passed into the stomach with minimal narrowing at the EG junction. Pathology revealed: Superficial fragments of adenocarcinoma, poorly differentiated from EG junction mass, 36 cm, 34 cm. HER2/April: Negative. CEA level: 12.30. I shared the results with him and his daughters. I offered them systemic chemotherapy with FOLFOX/XELOX plus/minus, nivolumab based chemotherapy.(based upon the PDL1 status.) They are going to discuss it with the family and get back to me about their decision. In the meantime will have him consult with Dr. Stuart, to get his opinion and to see if a stent would be feasible. He saw him a couple of months ago. That time, he did not feel a stent was feasible. I proceeded with PDL1 testing. This came back positive for PDL1 of 25. There were given written information about the chemotherapy regimens. Details of the regimen including potential side effects of hypersensitivity reaction, skin rash, arthralgias myalgias, nausea vomiting diarrhea, peripheral neuropathy, renal toxicity, hepatotoxicity, risk of infection, need for antibi otic, blood transfusion as well as growth factors were addressed with him. He understood and was willing to proceed. He had a Port-A-Cath placed to facilitate the chemotherapy. He started treatment 12/07. He is tolerating it very well. His symptoms of dysphagia have resolved. He is able to eat well. Database: CBC from 02/15: WBC 4, HGB 11.3, HCT 36.1, PLT 176. CMP from 02/15: Lytes WNL, BUN 18, [employer] 0.83, glucose 131. Calcium 9.2, albumin 3.5. LFTs: 0.7/180/34/29. CEA level: 5.80. CT scan of the chest and abdomen from 02/10, revealed: New right lower lobe nodules. Interval increase in wall thickening of the distal thoracic esophagus and GE junction. Wall thickening of the distal thoracic esophagus GE junction increased from previous exam. Thickened trabeculated bladder wall. Enlarged prostate gland. Abnormal soft tissue at the base of the bladder similar to previous exam probably related to lobulated contour of the prostate gland. New or increased gallbladder fundus wall thickening. Database: Labs from 03/29: CBC: WBC 9.9, HGB 11, HCT 34.8, MCV 89.2, PLT 95. CMP: Lytes WNL, glucose 154, Hermelindo 9.1, alb 3. LFTs: 0.7/243//21. CEA: 5.80. CBC from 05/03: WBC 7.6, HGB 10.9, HCT 34.1, PLT 92. CT chest from 04/16: Diffuse mural thickening involving mid and distal esophagus similar to previous study. There is mild wall thickening of the GE junction as well. There are several calcified and noncalcified nodules unchanged to the previous study. There are no new nodules. There is no abnormal mediastinal or axillary lymphadenopathy. . He is clinically doing very well. Denies significant dysphagia or odynophagia. Energy level is good. Overall he is tolerating the treatment well. It does appear to be working. I had a discussion with him and his daughter. PLAN: He is here for cycle 5, day 14 of his regimen. The plan is to continue current regimen for as long as it works and he can tolerate it. Will re-stage him after completion of another 2 cycles of chemo. He will return in 2 weeks for his next cycle and a follow-up visit. All his and his daughter's questions were answered to his satisfaction. Thank you, CC: Dr. Hooks. Dr. Stuart. Dr. Mancini. - Time Spent With Patient Time Spent with Patient (in minutes): 30
[2022-05-04] MEDS: Acetaminophen 325 MG TABLET 650 MG PO (09:57)
[2022-05-04] MEDS: diphenhydrAMINE HCL 50 MG/ML VIAL 25 MG IVPUSH (10:01)
[2022-05-04] MEDS: dexAMETHasone sod phosphate/NS 12 MG/50 ML PIGGYBACK 200 MG IV (10:18)
[2022-05-04] MEDS: OXALIplatin 100 MG, OXALIplatin 40 MG in Dextrose 5 % 500 ML 264 MG IV (11:58)
[2022-05-04] MEDS: FLUOROURACIL IVPUSH (14:28)
[2022-05-04] MEDS: DISPOSABLE IVPUSH (14:28)
--- NOTE | 2022-05-04 15:49 | MHC.HEMONC ---
Pt was in, accompanied by dtr Reny, for C10D1 Nivolumab/FOLFOX, arrived via w/c. Pt's VSS and weight stable, home labs were drawn the previous day, reviewed, platelets down from last cycle, down to 96, Dr. Anna aware. Pt's chemo doses were reviewed, oxaliplatin dose continued at 100% today. Pt denies any N/V/D, reports usual tingling in bilat hands, but continued intermittent cough, painful at night. Pt and his dtr met w/ Dr. Anna for f/u, requested refill of cough syrup, also to discuss recent CT results. Nurse accessed pt's R chest implanted port w/ 20g, 3/4 bella needle, w/ positive blood return. Pre-meds were admin, PO Tylenol, IV Benadryl, Zofran, and Dexamethasone. Nurse admin Nivolumab, and FOLFOX a/o, initiating take-home pump w/ 46 hr 5FU infusion. Pt was given d/c packet w/ his next appt on 05/06/22 for pump takedown and Neulasta injection. Pt's next cycle is C11D1 on 05/18/22, home draw to draw pt on 05/17 for next cycle's pre-chemo labs. Nurse also reminded Dr. Anna of pt's plans for vacation w/ his family from 06/07 - 06/15, so pt's cycle for 06/[address] Anna agreed that pt may have a break. Pt departed via w/c, accompanied by his dtr.
[2022-05-06] MEDS: Heparin Sodium,Porcine Flush 500 UNIT/5 ML SYRINGE IVFLUSH (12:50)
[2022-05-06 13:01] VITALS: BP 102/62; PULSE 98; TEMP 36.4; O2SAT 100
--- NOTE | 2022-05-06 13:06 | MHC.HEMONC ---
Pt here for pump take down. Port flushed with heparin and de accessed. Neulasta SC given in right arm-tolerated well. Discharged home
--- NOTE | 2022-05-12 16:10 | HO.HEMONCSCH ---
Nurse called pt's dtr/CG Reny, reminded her that [facility] will not be coming to pt's home to draw labs on 05/17/22 d/t the holiday, but pt may come in to the main lab on 05/15 in the morning between 7am and 11am. Pt's dtr declined, opted to have pt come in on 05/18 on day of chemo and have labs drawn same day.
[2022-05-18 09:36] LABS: MANUAL DIFF FLAG NO
[2022-05-18 09:49] LABS: Basophils Percent Auto 0.5 % (0-2); Eosinophils Absolute Auto 0.1 X10*3/uL (0.0-0.4); Eosinophils Percent Auto 1.3 % (0-4); Hematocrit 36.6 % (42.0-52.0); Hemoglobin 11.6 g/dl (14.0-18.0); Imm Gran Abs Auto 0.41 X10*3/uL (0.00-0.03); Imm Gran Pct Auto 4.9 % (0.0-0.4); Lymphocytes Absolute Auto 3.4 X10*3/uL (1.2-4.9); Lymphocytes Percent Auto 41.1 % (20-40); Mean Corpuscular HGB Conc 31.7 g/dl (31.0-36.0); Mean Corpuscular Hemoglobin 30.3 pg (27.0-33.0); Mean Corpuscular Volume 95.6 fL (80.0-98.0); Mean Platelet Volume 11.4 fL (9.4-12.4); Monocytes Absolute Auto 0.9 X10*3/uL (0.1-1.2); Monocytes Percent Auto 10.8 % (2-11); NRBC Pct Auto 0.2 /100WBC (0.0-0.2); Neutrophils Absolute Auto 3.4 x10*3/uL (2.0-8.3); Neutrophils Percent Auto 41.4 % (45-73); Platelet Count 98 X10*3/uL (160-400); Red Blood Count 3.83 X10*6/uL (4.60-5.80); Red Cell Distribution Width 18.5 % (11.0-16.0); White Blood Count 8.3 X10*3/uL (4.8-10.8)
[2022-05-18 09:50] VITALS: BP 128/68; PULSE 94; RESP 18; TEMP 36.4; O2SAT 99; BMI 18.7
[2022-05-18 09:58] LABS: Alanine Aminotransferase 19 U/L (0-40); Albumin Level 3.5 g/dL (3.5-5.0); Alkaline Phosphatase 280 U/L (39-117); Anion Gap 14 (12-20); Aspartate Amino Transferase 29 U/L (5-37); Bilirubin Direct 0.4 mg/dL (0.0-0.5); Bilirubin Total 0.8 mg/dL (0.0-1.0); Blood Urea Nitrogen 5 mg/dL (9-16); Carbon Dioxide 25 mmol/L (22-29); Chloride 107 mmol/L (96-108); Creatinine Clr Calc Pharmacy 78.6; Estimated Glomerular Filt Rate > 60; Glucose Random 167 mg/dL (60-115); Potassium 4.5 mmol/L (3.3-5.1); Sodium 141 mmol/L (135-145); Total Protein 6.5 g/dL (6.5-8.0)
[2022-05-18 10:18] LABS: Thyroid Stimulating Hormone 2.07 uIU/mL (0.32-4.0)
[2022-05-18] MEDS: Acetaminophen 325 MG TABLET 650 MG PO (10:27)
[2022-05-18] MEDS: Famotidine/PF 20 MG/2 ML VIAL IVPUSH (10:28)
[2022-05-18] MEDS: diphenhydrAMINE HCL 50 MG/ML VIAL 25 MG IVPUSH (10:28)
[2022-05-18] MEDS: dexAMETHasone sod phosphate/NS 12 MG/50 ML PIGGYBACK 200 MG IV (10:35)
[2022-05-18] MEDS: OXALIplatin 100 MG, OXALIplatin 40 MG in Dextrose 5 % 500 ML 264 MG IV (12:11)
[2022-05-18] MEDS: Leucovorin Calcium 660 MG in Dextrose 5 % 250 ML 141.5 MG IV (12:11)
[2022-05-18] MEDS: DISPOSABLE IVPUSH (14:25)
[2022-05-18] MEDS: FLUOROURACIL IVPUSH (14:25)
[2022-05-18] MEDS: FLUOROURACIL IV (14:26)
[2022-05-18] MEDS: SODIUM CHLORIDE 0.9% IV (14:26)
--- NOTE | 2022-05-18 18:19 | MHC.HEMONC ---
Pt was here for C11D1 Nivolumab/FOLFOX, arrived via w/c. Pt's VSS and weight were stable, home labs drawn peripherally today, reviewed, platelets stable, Dr. Anna aware. Pt's chemo doses were reviewed, oxaliplatin dose continued at 100% today. Pt denies any N/V/D, reports tingling/numbness in bilat fingers has worsened a bit, interfering w/ fine motor tasks. Nurse accessed pt's R chest implanted port w/ 20g, 3/4 bella needle, w/ positive blood return. Pre-meds were admin, PO Tylenol, IV Benadryl, Pepcid, Zofran, and Dexamethasone. Nurse admin Nivolumab, and FOLFOX a/o, initiating take-home pump w/ 46 hr 5FU infusion. Nurse reviewed w/ Dr. Anna that pt will be putting his chemo on hold for the next month as fam intends to travel to [place] in late May and pt wishes to have as few s/e as possible during this time. Nurse confirmed w/ pt's dtr that he will return on 06/15, and will come in for chemo C12D1 on 06/16/22, but will not be present to have Home labs drawn the day before. Nurse informed Holly at [facility]. Pt was given d/c packet w/ his next appt on 05/20/22 for pump takedown and Neulasta injection. Pt departed via w/c, accompanied by his dtr.
--- NOTE | 2022-05-19 11:13 | MHC.HEMONC ---
pt daughter called this morning to report chemo pump started beeping at 4am saying cassette damaged . she clamped line as directed and brought pt in. pump was disconnected and brought to pharmacy were they changed out pump. pt reconnected to pump est to finish tomorrow at 6pm. pt and daughter aware to take out batteries then and come in first thing tuesday morning to d/c pump
[2022-05-21] MEDS: Heparin Sodium,Porcine Flush 500 UNIT/5 ML SYRINGE IVFLUSH (10:43)
--- NOTE | 2022-05-21 14:24 | MHC.HEMONC ---
Pt came in for pump takedown and Neulasta injection, w/ his dtr Reny, 5FU infusion had completed since pt came in on D2 w/ technical difficulties, battery was removed. Nurse admin Neulasta 6mg SC to pt's RUE, which he tolerated well. Then, nurse flushed pt's R chest implanted port, found positive blood return, flushed w/ 500 units heparin, de-accessed port, also well-tolerated. Pt declined d/c packet, he and dtr confirmed pt's tx is on hold for 1 month until pt returns from [facility] vacation on 06/15/22. Pt will return on 06/16/22 for next cycle, to have labs drawn on same day as chemo. Holly from [facility] is aware pt will not be drawn on 06/14. Nurse updated tx cycle and Dr. Anna is aware.
--- NOTE | 2022-05-31 10:40 | HE.ONCSEC ---
WAS TOLD BY IRIS TO BOOK PATIENT FOR IV HYDRATION . IRIS CALLED PATIENT TO CONFIRM TIME .
--- NOTE | 2022-06-02 13:01 | HO.HEMONCSCH ---
Patient's daughter confirmed f/u apt for 06/03/22.
[2022-06-03] MEDS: 0.9 % Sodium Chloride 1,000 ML 500 ML IV (10:20)
[2022-06-03 10:43] LABS: MANUAL DIFF FLAG NO
[2022-06-03 10:54] LABS: Basophils Percent Auto 0.4 % (0-2); Eosinophils Percent Auto 0.4 % (0-4); Hematocrit 33.6 % (42.0-52.0); Hemoglobin 10.8 g/dl (14.0-18.0); Imm Gran Abs Auto 0.43 X10*3/uL (0.00-0.03); Imm Gran Pct Auto 4.1 % (0.0-0.4); Lymphocytes Absolute Auto 2.7 X10*3/uL (1.2-4.9); Lymphocytes Percent Auto 25.5 % (20-40); Mean Corpuscular HGB Conc 32.1 g/dl (31.0-36.0); Mean Corpuscular Hemoglobin 31.4 pg (27.0-33.0); Mean Corpuscular Volume 97.7 fL (80.0-98.0); Mean Platelet Volume 11.1 fL (9.4-12.4); Monocytes Absolute Auto 1.4 X10*3/uL (0.1-1.2); Monocytes Percent Auto 12.8 % (2-11); Neutrophils Percent Auto 56.8 % (45-73); Platelet Count 128 X10*3/uL (160-400); Red Blood Count 3.44 X10*6/uL (4.60-5.80); White Blood Count 10.6 X10*3/uL (4.8-10.8)
[2022-06-03 10:58] VITALS: BP 113/65; PULSE 104; RESP 20; TEMP 36.7; O2SAT 100; BMI 17.9
[2022-06-03 11:01] LABS: Alanine Aminotransferase 16 U/L (0-40); Albumin Level 3.3 g/dL (3.5-5.0); Alkaline Phosphatase 261 U/L (39-117); Anion Gap 14 (12-20); Aspartate Amino Transferase 36 U/L (5-37); Bilirubin Total 0.9 mg/dL (0.0-1.0); Blood Urea Nitrogen 10 mg/dL (9-16); Carbon Dioxide 25 mmol/L (22-29); Chloride 104 mmol/L (96-108); Creatinine Clr Calc Pharmacy 83.8; Estimated Glomerular Filt Rate > 60; Glucose Random 206 mg/dL (60-115); Potassium 3.1 mmol/L (3.3-5.1); Sodium 140 mmol/L (135-145); Total Protein 6.2 g/dL (6.5-8.0)
--- NOTE | 2022-06-03 14:54 | MHC.HEMONC ---
Pt here for IV hydration. Port accessed with good blood return noted. Daughter states pt was in ED of Monday 05/28 not feeling well. His platelet count at that time was 19. Dr Anna aware. Lab draw done. Platelet count today is 128. NS 1000cc infused over 2 hours. Port flushed with heparin and de-accessed. Pt and family are taking trip to [place], pt states is feeling well. Departed unit.
[2022-06-16 09:41] VITALS: BP 112/66; PULSE 98; RESP 16; TEMP 36.8; O2SAT 100; BMI 17.4
[2022-06-16 09:50] LABS: Basophils Percent Auto 0.5 % (0-2); Eosinophils Absolute Auto 0.1 X10*3/uL (0.0-0.4); Eosinophils Percent Auto 1.1 % (0-4); Hematocrit 36.5 % (42.0-52.0); Hemoglobin 11.7 g/dl (14.0-18.0); Imm Gran Abs Auto 0.02 X10*3/uL (0.00-0.03); Imm Gran Pct Auto 0.4 % (0.0-0.4); Lymphocytes Absolute Auto 1.5 X10*3/uL (1.2-4.9); Lymphocytes Percent Auto 27.1 % (20-40); MANUAL DIFF FLAG SCAN; Mean Corpuscular HGB Conc 32.1 g/dl (31.0-36.0); Mean Corpuscular Hemoglobin 31.4 pg (27.0-33.0); Mean Corpuscular Volume 97.9 fL (80.0-98.0); Mean Platelet Volume 10.7 fL (9.4-12.4); Monocytes Absolute Auto 1.2 X10*3/uL (0.1-1.2); Monocytes Percent Auto 21.8 % (2-11); Neutrophils Absolute Auto 2.8 x10*3/uL (2.0-8.3); Neutrophils Percent Auto 49.1 % (45-73); Platelet Count 239 X10*3/uL (160-400); Red Blood Count 3.73 X10*6/uL (4.60-5.80); Red Cell Distribution Width 18.7 % (11.0-16.0); SCAN SMEAR FLAG 1; White Blood Count 5.7 X10*3/uL (4.8-10.8)
[2022-06-16 10:10] LABS: SLIDE REVIEW VERIFIED
[2022-06-16 11:42] LABS: Chloride 105 mmol/L (96-108); Potassium 4.1 mmol/L (3.3-5.1); Sodium 139 mmol/L (135-145)
[2022-06-16 13:31] LABS: Alanine Aminotransferase 18 U/L (0-40); Albumin Level 3.4 g/dL (3.5-5.0); Alkaline Phosphatase 245 U/L (39-117); Anion Gap 13 (12-20); Aspartate Amino Transferase 38 U/L (5-37); Bilirubin Total 0.9 mg/dL (0.0-1.0); Blood Urea Nitrogen 11 mg/dL (9-16); Calcium 8.6 mg/dL (8.4-10.2); Carbon Dioxide 24 mmol/L (22-29); Estimated Glomerular Filt Rate > 60; Glucose Random 181 mg/dL (60-115); Total Protein 6.7 g/dL (6.5-8.0)
--- NOTE | 2022-06-16 14:19 | MHC.HEMONC ---
Pt here for C12D1 Nivolumab,FOLFOX. Port in right chest accessed. Good blood return. Labs drawn. CBC reviewed. CMP pending analyzer down. 1330 CMP not back. Pt updated frequently. Discussed options with patient and daughter. They are agreeable to return tomorrow at 0900 for treatment. Daughter had reported that Francisco has had difficulty with food getting stuck in esophagus and getting worse over last few months. They give him a very soft diet to prevent this happening. Will discuss with MD tomorrow. Port flushed and covered with 4x4 and secured with tape. Pt sent home accessed. Will return at 0900 tomorrow for treatment. Pharmacy notified and treatment orders moved to 06/17/22.
[2022-06-17 09:16] VITALS: BMI 17.8
[2022-06-17 09:39] VITALS: BP 126/71; PULSE 87; RESP 17; TEMP 36.1; O2SAT 100
[2022-06-17] MEDS: dexAMETHasone sod phosphate/NS 12 MG/50 ML PIGGYBACK 200 MG IV (10:24)
[2022-06-17] MEDS: Acetaminophen 325 MG TABLET 650 MG PO (10:25)
[2022-06-17] MEDS: diphenhydrAMINE HCL 50 MG/ML VIAL 25 MG IVPUSH (10:31)
--- NOTE | 2022-06-17 13:48 | MHC.HEMONC ---
Discussed with Dr Andrade Daughter stated that Yunior has been getting food stuck in his esophagus and it has been getting worse over the last few months. Daughter stated they give him soft foods and he tolerates it. Last ct was on 04/15/22, reviewed this with Dr Andrade. No new orders, just notify Dr Anna when she returns.
--- NOTE | 2022-06-17 15:45 | MHC.HEMONC ---
Pt here for C12D1 Nivolumab +FOLFOX @75%. Port in right chest already accessed from yesterday. Site patent with good blood return. no s/s infection. Labs used from yesterday. Pre meds given. Tylenol PO, Dexamethasone,Benadryl,Zofran IV. Pt offered no complaints. Nivolumab, leucovorin, Oxaliplatin given and tolerated well. 5FU push given and pump set up. Pt home with 5FU pump. Pt to return on Tuesday06/19/22 @ 1300 for pump take down. Discharge packet with calendar given.
[2022-06-19 13:04] VITALS: BP 119/61; PULSE 98; RESP 17; TEMP 36.3; O2SAT 98
--- NOTE | 2022-06-19 13:05 | MHC.HEMONC ---
Pump take down- port de-accessed with Heparin. VSS. Neulasta 6mg s/c administered to right upper arm and well tolerated. No complaints at this time. Patient reports good energy Patient accompanied by daughter- departed via wheelchair.
[2022-06-29 09:05] VITALS: BMI 17.3
[2022-06-29 09:28] VITALS: BP 117/62; PULSE 107; RESP 18; TEMP 36.7; O2SAT 99
--- NOTE | 2022-06-29 09:29 | PM.HEMONCPN ---
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 Endoscopic ultrasound on May 10: Ulcerated and friable partially obstructing mass extending from the GE junction through the cardia. Mass is circumferential hypoechoic fairly well circumscribed and rather homogeneous. Penetrates the muscularis propria. Making it a T3 lesion. Numerous small shotty lymph node largest being 7.5 mm not pathologic by size criteria. Tumor extends onto the gastric cardia. Celiac adenopathy could not be assessed. CURRENT THERAPY: Started radiation: July 09 2019. Completed low-dose carboplatin and Taxol weekly 08/13/2019. Now with disease recurrence. Started on systemic chemotherapy with FOLFOX, plus Nivolumab, 12/07. Interval History Interval history: Patient is here for scheduled chemotherapy. Last week he had to go to the emergency room because of urinary retention. He has been getting quite weak, he has developed neuropathy of hands and feet. He is finding it hard to button his shirt. His daughter thinks he is not getting much nutrition because he has to eat pureed food and Ensure for the most part. They also report worsening diarrhea in the last 2 weeks. Review of Systems - Constitutional Reports as per HPI, Reports no additional constitutional complaints, Denies fatigue, Denies fever(s), Reports lack of energy, Reports poor appetite - Cardiovascular Reports no additional cardiovascular complaints - Respiratory Reports no additional respiratory complaints - Gastrointestinal Reports no additional gastrointestinal complaints - Neurologic Reports no additional neurologic complaints, Denies behavioral changes, Denies weakness PMFSH Medical History: Medical History (Last Reviewed 06/19/22 @ 21:39 by Hope Norman MD) Adenocarcinoma of cardio-esophageal junction Anxiety Benign essential hypertension Constipation Depression Diabetes type 2, uncontrolled Diabetic nephropathy associated with type 2 diabetes mellitus Diabetic neuropathy Diabetic neuropathy associated with type 2 diabetes mellitus Dyslipidemia HLD (hyperlipidemia) Hypertension Keratotic lesion 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 Surgical History: Surgical History (Last Reviewed 06/19/22 @ 21:39 by Hope Norman MD) History of atherectomy History of left below knee amputation Status post below-knee amputation of left lower extremity Social History: Social History (Last Reviewed 06/19/22 @ 21:39 by Hope Norman MD) Living Situation History: Household Members: Family Housing: House Tobacco History: Patient Tobacco Use Status: Never used Tobacco e-Cigarette/Vaping Use: Never Used Second Hand Smoke Exposure: Yes Advance Directives: Advance Directives Date on File: 08/19/20 Nutrition Assessment: Patient : No Occupation Assessmet: service: No Current occupational status: retired Current occupational status: disabled Oncology Screenings - ECOG Performance Status ECOG Performance Status: 1 Home Medications and Allergies Current Medications: Current Medications Acetaminophen (Acetaminophen 325 Mg Tablet) 650 mg PO ONCE COURTNEY Stop: 06/29/22 23:59 Diphenhydramine HCl (Diphenhydramine Hcl 50 Mg/Ml Vial) 25 mg IVPUSH ONCE COURTNEY Stop: 06/29/22 23:59 Dexamethasone Sodium Phosphate (Decadron) 12 mg in 50 mls @ 200 mls/hr IV ONCE COURTNEY Stop: 06/29/22 23:59 Ondansetron HCl (Zofran) 16 mg in 50 mls @ 200 mls/hr IV ONCE COURTNEY Stop: 06/29/22 23:59 Home Medications Medication Instructions Recorded Confirmed Type aluminum-mag hydroxide-simethicone 80 ml PO USEASDIRECTD 06/19/22 06/19/22 History 400 mg-400 mg-40 mg/5 mL oral susp (Antacid Maximum Strength) blood sugar diagnostic (FreeStyle 06/19/22 06/19/22 History Lite Strips) cholecalciferol (vitamin D3) 25 1 cap PO QAM 06/19/22 06/19/22 History mcg (1,000 unit) capsule (Vitamin D3) diphenhydramine HCl 12.5 mg/5 mL See Rx Instructions .Route .COMPLEX 06/19/22 06/19/22 History oral liquid (Allergy Relief (diphenhydramine)) docusate sodium 100 mg capsule 2 cap PO QPM 06/19/22 06/19/22 History ferrous sulfate 325 mg (65 mg 1 tab PO QAM 06/19/22 06/19/22 History iron) tablet (FeroSul) gabapentin 100 mg capsule 2 cap PO BEDTIME 06/19/22 06/19/22 History glucagon 0.5 mg/0.1 mL 0.1 ml subcut DAILY diabetes 06/19/22 06/19/22 History subcutaneous auto-injector (Gvoke mellitus HypoPen 2-Pack) insulin aspar prot-insulin aspart 22 unit subcut QPM 06/19/22 06/19/22 History 100 unit/mL (70-30) subcutaneous pen (Novolog Mix 70-30FlexPen U-100) lancets 33 gauge (TRUEplus Lancets) 06/19/22 06/19/22 History lidocaine HCl 2 % mucosal solution See Rx Instructions .Route .COMPLEX 06/19/22 06/19/22 History lorazepam 0.5 mg tablet 1 tab PO TID 06/19/22 06/19/22 History metoprolol succinate 25 mg 0.5 tab PO QPM 06/19/22 06/19/22 History tablet,extended release 24 hr mirtazapine 30 mg tablet 1 tab PO BEDTIME 06/19/22 06/19/22 History ondansetron 8 mg disintegrating 1 tab PO Q8H PRN nausea 06/19/22 06/19/22 History tablet pen needle, diabetic 32 gauge x 06/19/22 06/19/22 History (Pentips) tramadol 50 mg tablet 1 tab PO Q6-8H PRN pain 06/19/22 06/19/22 History Allergies Allergy/AdvReac Type Severity Reaction Status Date / Time No Known Allergies Allergy Verified 06/15/22 08:17 Exam Vital signs: Vital Signs Temp 97.4 F 06/19/22 13:04 Pulse 98 06/19/22 13:04 Resp 17 06/19/22 13:04 BP 119/61 06/19/22 13:04 Pulse Ox 98 06/19/22 13:04 O2 Del Method 06/19/22 13:04 Intake & Output 06/28/22 06/29/22 06/29/22 18:59 06:59 18:59 Other: Weight 51.8 kg [place] Weight in Grams 32789 Weight 51.8 kg BMI result Body Mass Index 17.3 - Constitutional Present: no acute distress - Routine HEENT Exam Head: Present: normal inspection - Routine Neck Exam Present: full ROM - Routine Respiratory Exam Present: CTAB - Routine Cardiovascular Exam Cardiovascular: Present: RRR, S1, S2 - Routine Abdominal Exam Present: soft, nontender - Routine Extremities Exam Present: nontender - Routine Back/Spine/Pelvis Exam Back/Spine: Present: full ROM - Routine Skin Exam Present: intact - Routine Neurological Exam Present: alert, oriented X3 - Routine Psychiatric Exam Present: normal affect Data - Labs CBC & Chem 7: 06/16/22 Unknown 06/16/22 Unknown Assessment and Plan Patient Active problem list reviewed?: Yes (1) Adenocarcinoma of cardio-esophageal junction Problem details: Completed radiation therapy and chemotherapy (July 2019) S/P EGD with biopsy by Dr. Mancini on 12/07/2019 - previous tumor was not seen and biopsies done at the GE junction, esophagus and stomach all came back negative for dysplasia or malignancy Status: Acute Assessment and plan: This is a pleasant 71-year-old male with recurrent esophageal adenocarcinoma diagnosed in September 2021. Pathology revealed: Superficial fragments of adenocarcinoma, poorly differentiated from EG junction mass, 36 cm, 34 cm. HER2/April: Negative. PD L1 25. He has been receiving FOLFOX/nivolumab, he has received 12 cycles so far. After the last cycle he developed urinary retention, progressive neuropathy and weakness. He has a Guerrero catheter placed. He had see a CT angio of chest in June 2022 which was negative for PE, stable diffuse wall thickening of mid and distal esophagus/ EG junction. I will order a PET-CT, his last 1 was performed in November at an outside facility. Because of progressive side effects, FOLFOX/chemotherapy will be on hold. Proceed with nivolumab today. I discussed the above with patient and his daughter and they are willing for above plan. Follow-up with Dr. Anna in 3 weeks. - Time Spent With Patient Time Spent with Patient (in minutes): 15
[2022-06-29] MEDS: Acetaminophen 325 MG TABLET 650 MG PO (09:47)
--- NOTE | 2022-06-29 10:33 | HO.HEMONCPA ---
NO PA IS REQUIRED FOR PET CT ( PATIENT HAS MEDICARE ) . I SENT IN CLINICAL INFORMATION TO [facility] , AWAITING APPT DATE AND TIME .
--- NOTE | 2022-06-29 10:35 | MHC.HEMONC ---
pt now has wolfe cath placed in er for urine retention. pt will keep wolfe in until he sees dr dubose 07/16. urine sample obtained. pt c/o bilat finger numbness, effecting his adls. dr patrick seen pt flofox held today, only recieved nivolumab. plan will be imaging and questioning treatment q3w instead of 2.
[2022-06-29 11:17] LABS: Appearance Urine Cloudy; Color Urine Dark Yellow; Glucose Urine UA 500 mg/dL (Negative); Leukocyte Esterase Urine Small (1+) (Negative); Nitrite Urine Negative (Negative); PH 5.5 (5.0-8.0); Specific Gravity - Urine 1.025 (1.005-1.025); Urine Blood Moderate (2+) (Negative); Urine Ketones Trace mg/dL (Negative); Urine Protein 100 (2+) mg/dL (Neg-Trace)
[2022-06-29 11:29] LABS: Bacteria Urine None Seen (None Seen); Calcium Oxalate Crystals Urine Present; RBC Urine >20 /HPF (0-2); UACC Culture Trigger YES; WBC Urine >50 /HPF (0-5)
--- NOTE | 2022-07-02 10:23 | HO.HEMONCPA ---
REFAXING PET CT ORDER PER AMY'S REQUEST . WAITING FOR FAX BACK REGARDING APPT DATE & TIME.
--- NOTE | 2022-07-09 10:01 | HO.HEMONCSCH ---
This nurse took [place] [facility] [place] [facility] [place] w/ fam for appt, saying they are uncertain why they have yet to hear about the PET scan that Dr. Andrade tried to order last week. Nurse spoke w/ TYLER Montano, replied that TYLER had sent fax request for PET scan after determining that pt needs no PA, then she faxed a 2nd request on 07/02 at the request of Tita, but did not hear back w/ date and time. Nurse informed [facility], asked them to tell family that TYLER Montano is contacting Tita again about scheduling PET scan and to let the fam know they will be contacted once it is scheduled.
[2022-07-13 09:17] VITALS: BP 116/67; PULSE 108; RESP 16; TEMP 36.2; O2SAT 99; BMI 17.3
--- NOTE | 2022-07-13 09:41 | HO.HEMONCPA ---
I CALLED [facility]Y FOR AN UPDATE ON THE PATIENT'S PET CT . UPON TALKING W/ AMY SHE STATES SHE HAS CALLED PATIENT 2X AND HAS LEFT VOICEMAILS BUT NO RESPONSE ( SO HENCE WHY SHE WAS UNABLE TO LET PATIENT KNOW OF APPT DATE & TIME ) , I THEN INFORMED AMY THAT PATIENT AND PATIENT'S DAUGHTER ARE IN THE OFFICE TODAY , SO AMY SPOKE W/ PATIENT'S DAUGHTER & TOLD HER THE APPT DATE & TIME FOR HER FATHER'S PET CT . PT IS SCHEDULED FOR 07/20/22 AT 11:15AM .
--- NOTE | 2022-07-13 09:53 | PM.HEMONCPN ---
Medical Summary - Medical Summary Date of Service: 07/13/22 Chief complaint: Follow-up for: Carcinoma of the esophagus. 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 Endoscopic ultrasound on May 10: Ulcerated and friable partially obstructing mass extending from the GE junction through the cardia. Mass is circumferential hypoechoic fairly well circumscribed and rather homogeneous. Penetrates the muscularis propria. Making it a T3 lesion. Numerous small shotty lymph node largest being 7.5 mm not pathologic by size criteria. Tumor extends onto the gastric cardia. Celiac adenopathy could not be assessed. CURRENT THERAPY: Started radiation: July 09 2019. Completed low-dose carboplatin and Taxol weekly 08/13/2019. Now with disease recurrence. Started on systemic chemotherapy with FOLFOX, plus Nivolumab, 12/07. Interval History Interval history: This is a pleasant 71 year-old gentleman here for a follow-up visit. He was in house between 06/19 to 06/20. Discharge summary: He was admitted for urinary retention and concern for severe leukocytosis. A Guerrero catheter was placed. He was started on finsteride and tamsulosin. He was discharged with Guerrero in place to follow up with Urology. Dr. Obrien recommended prostate medications. To leave the Guerrero in for 4 weeks. Leukocytosis was related to Neulasta. No evidence for infection or sepsis. He was hypotensive so losartan was held. Couple of weeks ago his chemotherapy was held, on account of side effects, neuropathy. He was having difficulty opening cans. He was given only nivolumab. He is feeling much better, with the break. His energy level is better. He had some difficulty swallowing with solids however, even the swallowing function has improved. He was seen by Dr. Bonilla on 07/09. His note: 71-year-old gentleman with multiple significant medical comorbidities here with his 2 daughters to discuss potential options in terms of nutrition. He does feel like he has lost 5-10 lb over the past several months and that he is actually able to get down soft foods but anything more solid seems to get stuck. Actually, the past few weeks he feels that this has improved slightly. We discussed the options of a feeding tube versus stent versus just continuing as he is. I did explain to them that an esophageal stent is only a temporary symptomatic reliever and that he still may be limited to soft foods with the risk of stent migration/pain/erosion. After our discussion they felt that there would be some but may be only minimal improvement with a stent in place and will continue to provide nutrition as it is. I did recommend a soft diet for him moving forward. He denies any pain. No headache no dizziness. He denies chest pain or trouble breathing. Sometimes he has a little bit of a cough at night The cough syrup helps. He denies any abdominal pain. He gets occasional nausea. He takes Zofran which helps. He gets occasional heartburn/ indigestion, for which he takes omeprazole. Bowels are working without any gross blood in it. He gets constipated. He takes MOM and fiber gummies. He has been able to eat very well. He does enjoy a good appetite. His weight is stable. He is in good spirits. Rest of the review of systems is unremarkable. Interim history:. He was in house between 01/17 and 01/19/22. Discharge summary: Presented with burning with urination that started a few days ago. He reported dysuria and frequency but denied hematuria as well as fever, chills, nausea or vomiting.? He is currently undergoing chemotherapy for esophageal cancer at [facility] oncology.? White blood cell count was noted to be elevated at 46,000, lactic acid 2.7, tachycardia and tachypnea.? Urinalysis was positive for UTI, chest x-ray: Negative.? He was given a dose of Rocephin IV fluids in the ER.? Was admitted for further management and treatment of severe sepsis secondary to urinary tract infection. Severe sepsis secondary to urinary tract infection. Treated with IV Rocephin. Resolved Leukocytosis, tachycardia, tachypnea, lactic acidosis. Blood cultures up to 24 hours: Negative. Previous history: At his previous visit, in November,: He tells me that he has had some difficulty swallowing lately. It is mostly to solids. Liquids go down easily. It is a level 6 on 1-10 scale. Sometimes while eating he has a choking sensation. He is mostly taking soft diet including oatmeal, soups and rice. He tries to avoid chicken since it causes acid reflux. Patient was seen here back in mid . He complained that over the past couple of weeks he noted a cough. Would bring up clear sputum. He had been using DayQuil and NyQuil for symptoms. His appetite had declined. He denied obvious dysphagia or odynophagia. He had a CT scan of the chest on 10/08/2021 which revealed: Limited evaluation of pulmonary nodules due to artifact from respiratory motion. The 3 mm calcified right upper lobe nodule is stable. Other previously identified pulmonary nodules are not identified. Interval increase in wall thickening of the distal thoracic esophagus, GE junction and proximal stomach compared to January 2020 exam. On November 17, he underwent an upper endoscopy by Dr. Mancini which revealed: Esophagus: There was ulceration and friability with heaped up mucosa beginning at about 34 cm and extending to the EG junction at 36 cm and into the stomach for approximately 1 cm to 2 cm below this. Biopsies were obtained from the abnormal mucosa. The mucosa was ulcerated and friable with heaped up margins suspicious for recurrent tumor as opposed to just changes from his previous chemoradiation treatments. The scope was easily passed into the stomach with minimal narrowing at the EG junction. Pathology revealed: Superficial fragments of adenocarcinoma, poorly differentiated from EG junction mass, 36 cm, 34 cm. Review of Systems - Constitutional Reports system reviewed and no additional complaints, except as documented, Denies body ache(s), Denies chills, Denies daytime sleepiness, Denies lack of energy, Denies malaise, Denies weakness, Denies weight loss - Eyes Reports system reviewed and no additional complaints, except as documented - ENT Reports system reviewed and no additional complaints, except as documented - Cardiovascular Reports system reviewed and no additional complaints, except as documented - Respiratory Reports no additional respiratory complaints - Gastrointestinal Reports system reviewed and no additional complaints, except as documented - Genitourinary Genitourinary: Reports no additional male genitourinary complaints - Musculoskeletal Reports system reviewed and no additional complaints, except as documented - Integumentary/Breasts Skin/Breast: Reports no additional skin complaints - Neurologic Reports system reviewed and no additional complaints, except as documented, Denies behavioral changes, Denies weakness - Psychiatric Reports system reviewed and no additional complaints, except as documented - Endocrine Reports no additional endocrine complaints - Hematologic/Lymphatic Reports system reviewed and no additional complaints, except as documented - Allergic/Immunologic Reports system reviewed and no additional complaints, except as documented [facility] Medical History: Medical History (Last Updated 07/09/22 @ 12:48 by Iveth Espinoza PA-C) Adenocarcinoma of cardio-esophageal junction Onset Date: ~2018 Anxiety Benign essential hypertension Constipation Depression Diabetes type 2, uncontrolled Diabetic nephropathy associated with type 2 diabetes mellitus Diabetic neuropathy associated with type 2 diabetes mellitus HLD (hyperlipidemia) Keratotic lesion [facility] (current) use of insulin Vitamin D deficiency Functional capacity: wheelchair bound Patient : No Family History: Family History (Last Reviewed 07/09/22 @ 11:28 by Bee Stuart MD) Father Diabetes Hypertension Mother No problems noted. Surgical History: Surgical History (Last Updated 07/09/22 @ 12:51 by Iveth Espinoza PA-C) History of atherectomy Onset Date: ~2018 History of esophagogastroduodenoscopy History of left below knee amputation Onset Date: ~2018 Social History: Social History (Last Reviewed 07/09/22 @ 11:28 by Bee Stuart MD) Living Situation History: Household Members: Family Housing: House Tobacco History: Patient Tobacco Use Status: Never used Tobacco e-Cigarette/Vaping Use: Never Used Second Hand Smoke Exposure: Yes Advance Directives: Advance Directives Date on File: 08/19/20 Occupation Assessmet: service: No Current occupational status: retired Current occupational status: disabled Oncology Screenings - ECOG Performance Status ECOG Performance Status: 2 Home Medications and Allergies Home Medications Medication Instructions Recorded Confirmed Type aluminum-mag hydroxide-simethicone 80 ml PO USEASDIRECTD 06/19/22 07/09/22 History 400 mg-400 mg-40 mg/5 mL oral susp (Antacid Maximum Strength) blood sugar diagnostic (FreeStyle 06/19/22 07/09/22 History Lite Strips) cholecalciferol (vitamin D3) 25 1 cap PO QAM 06/19/22 07/09/22 History mcg (1,000 unit) capsule (Vitamin D3) diphenhydramine HCl 12.5 mg/5 mL See Rx Instructions .Route .COMPLEX 06/19/22 07/09/22 History oral liquid (Allergy Relief (diphenhydramine)) docusate sodium 100 mg capsule 2 cap PO QPM 06/19/22 07/09/22 History ferrous sulfate 325 mg (65 mg 1 tab PO QAM 06/19/22 07/09/22 History iron) tablet (FeroSul) gabapentin 100 mg capsule 2 cap PO BEDTIME 06/19/22 07/09/22 History glucagon 0.5 mg/0.1 mL 0.1 ml subcut DAILY diabetes 06/19/22 07/09/22 History subcutaneous auto-injector (Gvoke mellitus HypoPen 2-Pack) insulin aspar prot-insulin aspart 22 unit subcut QPM 06/19/22 07/09/22 History 100 unit/mL (70-30) subcutaneous pen (Novolog Mix 70-30FlexPen U-100) lancets 33 gauge (TRUEplus Lancets) 06/19/22 07/09/22 History lidocaine HCl 2 % mucosal solution See Rx Instructions .Route .COMPLEX 06/19/22 07/09/22 History metoprolol succinate 25 mg 0.5 tab PO QPM 06/19/22 07/09/22 History tablet,extended release 24 hr mirtazapine 30 mg tablet 1 tab PO BEDTIME 06/19/22 07/09/22 History ondansetron 8 mg disintegrating 1 tab PO Q8H PRN nausea 06/19/22 07/09/22 History tablet pen needle, diabetic 32 gauge x 06/19/22 07/09/22 History /32 (Pentips) tramadol 50 mg tablet 1 tab PO Q6-8H PRN pain 06/19/22 07/09/22 History Allergies Allergy/AdvReac Type Severity Reaction Status Date / Time No Known Allergies Allergy Verified 07/09/22 09:33 Exam Vital signs: Vital Signs Temp 97.2 F 07/13/22 09:17 Pulse 108 H 07/13/22 09:17 Resp 16 07/13/22 09:17 BP 116/67 07/13/22 09:17 Pulse Ox 99 07/13/22 09:17 O2 Del Method 07/13/22 09:17 Intake & Output 07/12/22 07/13/22 07/13/22 18:59 06:59 18:59 Other: Weight 51.6 kg Welling Weight in Grams 75352 Weight 51.6 kg BMI result Body Mass Index 17.3 - Constitutional Present: no acute distress - Routine HEENT Exam Head: Present: normal inspection Eye: Present: normal appearance ENT: Present: mucous membranes moist - Routine Neck Exam Present: full ROM - Routine Respiratory Exam Present: CTAB - Routine Cardiovascular Exam Cardiovascular: Present: RRR, S1, S2 - Routine Abdominal Exam Present: soft, nontender - Routine Extremities Exam Present: nontender - Routine Back/Spine/Pelvis Exam Back/Spine: Present: full ROM - Routine Skin Exam Present: intact - Routine Neurological Exam Present: alert, oriented X3 - Routine Psychiatric Exam Present: normal affect Data - Labs CBC & Chem 7: 06/16/22 Unknown 06/16/22 Unknown Assessment and Plan Patient Active problem list reviewed?: Yes (1) Carcinoma of thoracic esophagus Status: Inactive Assessment and plan: This is a pleasant 71 year-old gentleman diagnosed with Carcinoma of the Esophagus, back in summer. Upper endoscopy revealed a 4 cm mass extending from the EG junction to 1-2 cm below the EG junction. Pathology: Superficial fragments of adenocarcinoma, moderately differentiated, arising in a background of Mcintyre's esophagus. HER2: 0. Endoscopic ultrasound May 10 2019: T3, N0 lesion. PET scan revealed disease confined to the esophagus. He underwent neoadjuvant chemoradiation. He received carboplatin and Taxol weekly. PET scan on 10/04/2019 showed: Mild improvement in uptake in the distal esophagus and fundus of the stomach. C6 cervical vertebra showed uptake question of a lesion. Stable small right lower lung nodule. No uptake. Bone scan from 10/22/19 revealed: Mild abnormalities in several ribs likely representing chronic rib fractures an ongoing bone remodeling. Mild on specific abnormalities is all related to arthritis. He saw Dr. Stuart. He did offer surgical resection however patient was concerned about the risks involved and so declined. EGD from 12/07/2019: EG junction was located at 39 cm. There were 2 areas of ulceration 1 measuring 10 mm and 1 measuring 5 mm at the EG junction. The previous tumor was not seen. No stricture. Pathology: GE junction mucosa with moderate acute and chronic inflammation, mucin and detached fragments of granulation tissue consistent with ulcer and esophagitis, negative for dysplasia or malignancy. CT scan from 01/22/20 revealed: Stable pulmonary nodules compared to 03/15 019. He had an upper endoscopy by Dr. Mancini in November of 2019 which revealed: The EG junction was located at 39 cm. There were 2 areas of ulceration, one measuring approximately 10 mm and one measuring approximately 5 mm at the EG junction. The previous tumor was not seen. The scope passed easily into the stomach. There was no stricture. Pathology: A. GE junction, biopsies: Gastroesophageal junctional mucosa with moderate acute and chronic inflammation, mucin and detached fragments of granulation tissue consistent with ulcer and esophagitis; negative for intestinal metaplasia; negative for dysplasia or malignancy. He has been feeling reasonably well. He denies any further dysphagia. However lately he has had a cough with sputum. His appetite is not that good and he has been losing weight. He had a CT scan of the chest on 10/08/2021 which revealed: Limited evaluation of pulmonary nodules due to artifact from respiratory motion. The 3 mm calcified right upper lobe nodule is stable. Other previously identified pulmonary nodules are not identified. Interval increase in wall thickening of the distal thoracic esophagus, GE junction and proximal stomach compared to January 2020 exam. I referred him to Dr. Mancini, who proceeded with an upper endoscopy, on 11/17 which revealed: On November 17, he underwent an upper endoscopy by Dr. Mancini which revealed: Esophagus: There was ulceration and friability with heaped up mucosa beginning at about 34 cm and extending to the EG junction at 36 cm and into the stomach for approximately 1 cm to 2 cm below this. Biopsies were obtained from the abnormal mucosa. The mucosa was ulcerated and friable with heaped up margins suspicious for recurrent tumor as opposed to just changes from his previous chemoradiation treatments. The scope was easily passed into the stomach with minimal narrowing at the EG junction. Pathology revealed: Superficial fragments of adenocarcinoma, poorly differentiated from EG junction mass, 36 cm, 34 cm. HER2/April: Negative. CEA level: 12.30. I shared the results with him and his daughters. I offered them systemic chemotherapy with FOLFOX/XELOX plus/minus, nivolumab based chemotherapy.(based upon the PDL1 status.) They are going to discuss it with the family and get back to me about their decision. In the meantime will have him consult with Dr. Stuart, to get his opinion and to see if a stent would be feasible. He saw him a couple of months ago. That time, he did not feel a stent was feasible. I proceeded with PDL1 testing. This came back positive for PDL1 of 25. There were given written information about the chemotherapy regimens. Details of the regimen including potential side effects of hypersensitivity reaction, skin rash, arthralgias myalgias, nausea vomiting diarrhea, peripheral neuropathy, renal toxicity, hepatotoxicity, risk of infection, need for antibiotic, blood transfusion as well as growth factors were addressed with him. He understood and was willing to proceed. He had a Port-A-Cath placed to facilitate the chemotherapy. He started treatment 12/07. He is tolerating it very well. His symptoms of dysphagia have resolved. He is able to eat well. Database: CBC from 02/15: WBC 4, HGB 11.3, HCT 36.1, PLT 176. CMP from 02/15: Lytes WNL, BUN 18, RETORT ENGINEER 0.83, glucose 131. Calcium 9.2, albumin 3.5. LFTs: 0.7/180/34/29. CEA level: 5.80. CT scan of the chest and abdomen from 02/10, revealed: New right lower lobe nodules. Interval increase in wall thickening of the distal thoracic esophagus and GE junction. Wall thickening of the distal thoracic esophagus GE junction increased from previous exam. Thickened trabeculated bladder wall. Enlarged prostate gland. Abnormal soft tissue at the base of the bladder similar to previous exam probably related to lobulated contour of the prostate gland. New or increased gallbladder fundus wall thickening. Database: Labs from 03/29: CBC: WBC 9.9, HGB 11, HCT 34.8, MCV 89.2, PLT 95. CMP: Lytes WNL, glucose 154, Hermelindo 9.1, alb 3. LFTs: 0.7/243/31/21. CEA: 5.80. CBC from 05/03: WBC 7.6, HGB 10.9, HCT 34.1, PLT 92. CT chest from 04/16: Diffuse mural thickening involving mid and distal esophagus similar to previous study. There is mild wall thickening of the GE junction as well. There are several calcified and noncalcified nodules unchanged to the previous study. There are no new nodules. There is no abnormal mediastinal or axillary lymphadenopathy. He was in house between 06/19 to 06/20. With urinary retention. He saw Urology. Guerrero was placed. Due to ongoing neuropathy and treatment related side effects, he was treated with nivolumab with his last cycle, cycle 7 day 1. He is clinically doing well, now. His dysphagia has improved. Energy level is good. The treatment does appear to be working. I had a discussion with him and his daughter. PLAN: He is here for cycle 7, day 14 of his regimen. The plan is to re-stage him with a PET scan. He is actually scheduled for that on Tuesday. He would subsequently like to get a break from the treatment. He will return in 2 weeks for a follow-up visit. All his and his daughter's questions were answered to his satisfaction. Thank you, CC: Dr. Hooks. Dr. Stuart. Dr. Mancini. - Time Spent With Patient Time Spent with Patient (in minutes): 30
[2022-07-13] MEDS: Acetaminophen 325 MG TABLET 650 MG PO (11:08)
[2022-07-13] MEDS: diphenhydrAMINE HCL 50 MG/ML VIAL 25 MG IVPUSH (11:08)
[2022-07-13] MEDS: Heparin Sodium,Porcine Flush 500 UNIT/5 ML SYRINGE IVFLUSH (12:38)
--- NOTE | 2022-07-13 14:18 | MHC.HEMONC ---
Pt here for C14D1 Nivolumab/ [id number] and follow up with Dr Anna. Labs reviewed. Pt has reported increased neuropathy symptoms in hands. Limiting ADL'S and dropping items, urinary retention (has catheter in place). Daughter Reny stated has follow up with urologist and hoping to get catheter removed. Daughter reports weakness has improved some. Pt was seen by Dr Anna. FOLFOX on hold until after pet scan scheduled for Jul 20 at 11:15 here at [facility]. Port was accessed. good blood return. Pre meds given Tylenol po and Benadryl IV. Nivolumab infused as ordered. Pt toll well. Pt scheduled for next treatment of Nivolumab on 07/27/[address] Anna will review the Pet scan and decide whether to continue MFOLFOX6.
[2022-07-27 09:46] VITALS: BMI 18.1
[2022-07-27 10:18] VITALS: BP 140/76; PULSE 104; RESP 17; TEMP 36.2; O2SAT 100
[2022-07-27] MEDS: diphenhydrAMINE HCL 50 MG/ML VIAL 25 MG IVPUSH (10:39)
[2022-07-27] MEDS: Famotidine/PF 20 MG/2 ML VIAL IVPUSH (10:39)
[2022-07-27] MEDS: dexAMETHasone sod phosphate/NS 12 MG/50 ML PIGGYBACK 200 MG IV (10:40)
[2022-07-27] MEDS: Acetaminophen 325 MG TABLET 650 MG PO (10:40)
--- NOTE | 2022-07-27 14:42 | MHC.HEMONC ---
Pt here for C15D1 Nivolumab 14 day cycle/ MFolfox6. Scans were reviewed by Dr Anna. Pt to get only Nivolumab. Pharmacy notified. Pt states is doing well. Reports Energy level is better. Eating well. Still has wolfe catheter that is clamped during the day and he intermittently empties it.Neuropathy in fingers unchanged. Still having difficulty grasping/holding items. Labs were drawn at home, reviewed. Port to right chest accessed, + blood return. Site benign. Pre meds given, Tylenol po, Dexamethasone 12mg IV, Benadryl 25mg IV, Pepcid 25mg IV, Zofran 16mg IV as ordered. Nivolumab 240mg infused as ordered. Pt toll well. Port to right chest de-accessed. Site benign. D/C packet given with next treatment in 14 days. Family here to bring patient home. Initialized on 07/27/22 14:10 - END OF NOTE
[2022-08-10 09:10] VITALS: BMI 18.7
[2022-08-10 09:11] VITALS: BP 146/74; PULSE 94; RESP 16; TEMP 36.1; O2SAT 98
[2022-08-10] MEDS: diphenhydrAMINE HCL 50 MG/ML VIAL 25 MG IVPUSH (09:29)
[2022-08-10] MEDS: Acetaminophen 325 MG TABLET 650 MG PO (09:29)
--- NOTE | 2022-08-10 10:25 | PM.HEMONCPN ---
Medical Summary - Medical Summary Date of Service: 08/10/22 Chief complaint: FOLLOW-UP FOR COLON CARCINOMA OF THE ESOPHAGUS. 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 Endoscopic ultrasound on May 10: Ulcerated and friable partially obstructing mass extending from the GE junction through the cardia. Mass is circumferential hypoechoic fairly well circumscribed and rather homogeneous. Penetrates the muscularis propria. Making it a T3 lesion. Numerous small shotty lymph node largest being 7.5 mm not pathologic by size criteria. Tumor extends onto the gastric cardia. Celiac adenopathy could not be assessed. CURRENT THERAPY: Started radiation: July 09 2019. Completed low-dose carboplatin and Taxol weekly 08/13/2019. Now with disease recurrence. Started on systemic chemotherapy with FOLFOX, plus Nivolumab, 12/07. Interval History Interval history: This is a pleasant 71 year-old gentleman here for a follow-up visit. He was in house between 06/19 to 06/20. Discharge summary: He was admitted for urinary retention and concern for severe leukocytosis. A Guerrero catheter was placed. He was started on finsteride and tamsulosin. He was discharged with Guerrero in place to follow up with Urology. Dr. Obrien recommended prostate medications. To leave the Guerrero in for 4 weeks. Leukocytosis was related to Neulasta. No evidence for infection or sepsis. He was hypotensive so losartan was held. Couple of weeks ago his chemotherapy was held, on account of side effects, neuropathy. He was having difficulty opening cans. He was given only nivolumab. He is feeling much better, with the break. His energy level is better. He had some difficulty swallowing with solids however, even the swallowing function has improved. He was seen by Dr. Bonilla on 07/09. His note: 71-year-old gentleman with multiple significant medical comorbidities here with his 2 daughters to discuss potential options in terms of nutrition. He does feel like he has lost 5-10 lb over the past several months and that he is actually able to get down soft foods but anything more solid seems to get stuck. Actually, the past few weeks he feels that this has improved slightly. We discussed the options of a feeding tube versus stent versus just continuing as he is. I did explain to them that an esophageal stent is only a temporary symptomatic reliever and that he still may be limited to soft foods with the risk of stent migration/pain/erosion. After our discussion they felt that there would be some but may be only minimal improvement with a stent in place and will continue to provide nutrition as it is. I did recommend a soft diet for him moving forward. He denies any pain. No headache no dizziness. He denies chest pain or trouble breathing. Sometimes he has a little bit of a cough at night The cough syrup helps. He denies any abdominal pain. He gets occasional nausea. He takes Zofran which helps. He gets occasional heartburn/ indigestion, for which he takes omeprazole. Bowels are working without any gross blood in it. He gets constipated. He takes MOM and fiber gummies. He has been able to eat very well. He does enjoy a good appetite. His weight is stable. He is in good spirits. Rest of the review of systems is unremarkable. Interim history:. He was in house between 01/17 and 01/19/22. Discharge summary: Presented with burning with urination that started a few days ago. He reported dysuria and frequency but denied hematuria as well as fever, chills, nausea or vomiting.? He is currently [place] [facility] [place] White blood cell count was noted to be elevated at 46,000, lactic acid 2.7, tachycardia and tachypnea.? Urinalysis was positive for UTI, chest x-ray: Negative.? He was given a dose of Rocephin IV fluids in the ER.? Was admitted for further management and treatment of severe sepsis secondary to urinary tract infection. Severe sepsis secondary to urinary tract infection. Treated with IV Rocephin. Resolved Leukocytosis, tachycardia, tachypnea, lactic acidosis. Blood cultures up to 24 hours: Negative. Previous history: At his previous visit, in November,: He tells me that he has had some difficulty swallowing lately. It is mostly to solids. Liquids go down easily. It is a level 6 on 1-10 scale. Sometimes while eating he has a choking sensation. He is mostly taking soft diet including oatmeal, soups and rice. He tries to avoid chicken since it causes acid reflux. Patient was seen here back in mid . He complained that over the past couple of weeks he noted a cough. Would bring up clear sputum. He had been using DayQuil and NyQuil for symptoms. His appetite had declined. He denied obvious dysphagia or odynophagia. He had a CT scan of the chest on 10/08/2021 which revealed: Limited evaluation of pulmonary nodules due to artifact from respiratory motion. The 3 mm calcified right upper lobe nodule is stable. Other previously identified pulmonary nodules are not identified. Interval increase in wall thickening of the distal thoracic esophagus, GE junction and proximal stomach compared to January 2020 exam. On November 17, he underwent an upper endoscopy by Dr. Mancini which revealed: Esophagus: There was ulceration and friability with heaped up mucosa beginning at about 34 cm and extending to the EG junction at 36 cm and into the stomach for approximately 1 cm to 2 cm below this. Biopsies were obtained from the abnormal mucosa. The mucosa was ulcerated and friable with heaped up margins suspicious for recurrent tumor as opposed to just changes from his previous chemoradiation treatments. The scope was easily passed into the stomach with minimal narrowing at the EG junction. Pathology revealed: Superficial fragments of adenocarcinoma, poorly differentiated from EG junction mass, 36 cm, 34 cm. Review of Systems - Constitutional Reports system reviewed and no additional complaints, except as documented - Eyes Reports system reviewed and no additional complaints, except as documented - ENT Reports system reviewed and no additional complaints, except as documented - Cardiovascular Reports system reviewed and no additional complaints, except as documented - Respiratory Reports no additional respiratory complaints - Gastrointestinal Reports system reviewed and no additional complaints, except as documented - Genitourinary Genitourinary: Reports no additional male genitourinary complaints - Musculoskeletal Reports system reviewed and no additional complaints, except as documented - Integumentary/Breasts Skin/Breast: Reports no additional skin complaints - Neurologic Reports system reviewed and no additional complaints, except as documented, Denies behavioral changes, Denies weakness - Psychiatric Reports system reviewed and no additional complaints, except as documented - Endocrine Reports no additional endocrine complaints - Hematologic/Lymphatic Reports system reviewed and no additional complaints, except as documented - Allergic/Immunologic Reports system reviewed and no additional complaints, except as documented PMFSH Medical History: Medical History (Last Reviewed 08/03/22 @ 12:01 by Norm Hooks MD) Adenocarcinoma of cardio-esophageal junction Onset Date: ~2018 Anxiety Benign essential hypertension Constipation Depression Diabetes type 2, uncontrolled Diabetic nephropathy associated with type 2 diabetes mellitus Diabetic neuropathy associated with type 2 diabetes mellitus HLD (hyperlipidemia) Keratotic lesion retirement (current) use of insulin Vitamin D deficiency Functional capacity: wheelchair bound Patient : No Family History: Family History (Last Reviewed 08/03/22 @ 12:01 by Norm Hooks MD) Father Diabetes Hypertension Mother No problems noted. Surgical History: Surgical History (Last Reviewed 08/03/22 @ 12:01 by Norm Hooks MD) History of atherectomy Onset Date: ~2018 History of esophagogastroduodenoscopy History of left below knee amputation Onset Date: ~2018 Social History: Social History (Last Reviewed 08/03/22 @ 12:01 by Norm Hooks MD) Living Situation History: Household Members: Family Housing: House Tobacco History: Patient Tobacco Use Status: Never used Tobacco e-Cigarette/Vaping Use: Never Used Second Hand Smoke Exposure: Yes Advance Directives: Advance Directives Date on File: 08/19/20 Occupation Assessmet: service: No Current occupational status: retired Current occupational status: disabled Oncology Screenings - ECOG Performance Status ECOG Performance Status: 2 Home Medications and Allergies Current Medications: Current Medications Acetaminophen (Acetaminophen 325 Mg Tablet) 650 mg PO ONCE COURTNEY Stop: 08/10/22 23:59 Last Admin: 08/10/22 09:29 Dose: 650 mg Diphenhydramine HCl (Diphenhydramine Hcl 50 Mg/Ml Vial) 25 mg IVPUSH ONCE COURTNEY Stop: 08/10/22 23:59 Last Admin: 08/10/22 09:29 Dose: 25 mg Nivolumab 240 mg/ Sodium (Chloride) 124 mls @ 248 mls/hr IV ONCE COURTNEY Stop: 08/10/22 23:59 Home Medications Medication Instructions Recorded Confirmed Type aluminum-mag hydroxide-simethicone 80 ml PO USEASDIRECTD 06/19/22 08/03/22 History 400 mg-400 mg-40 mg/5 mL oral susp (Antacid Maximum Strength) blood sugar diagnostic (FreeStyle 06/19/22 08/03/22 History Lite Strips) cholecalciferol (vitamin D3) 25 1 cap PO QAM 06/19/22 08/03/22 History mcg (1,000 unit) capsule (Vitamin D3) diphenhydramine HCl 12.5 mg/5 mL See Rx Instructions .Route .COMPLEX 06/19/22 08/03/22 History oral liquid (Allergy Relief (diphenhydramine)) docusate sodium 100 mg capsule 2 cap PO QPM 06/19/22 08/03/22 History ferrous sulfate 325 mg (65 mg 1 tab PO QAM 06/19/22 08/03/22 History iron) tablet (FeroSul) gabapentin 100 mg capsule 2 cap PO BEDTIME 06/19/22 08/03/22 History glucagon 0.5 mg/0.1 mL 0.1 ml subcut DAILY diabetes 06/19/22 08/03/22 History subcutaneous auto-injector (Gvoke mellitus HypoPen 2-Pack) insulin aspar prot-insulin aspart 22 unit subcut QPM 06/19/22 08/03/22 History 100 unit/mL (70-30) subcutaneous pen (Novolog Mix 70-30FlexPen U-100) metoprolol succinate 25 mg 0.5 tab PO QPM 06/19/22 08/03/22 History tablet,extended release 24 hr ondansetron 8 mg disintegrating 1 tab PO Q8H PRN nausea 06/19/22 08/03/22 History tablet pen needle, diabetic 32 gauge x 06/19/22 08/03/22 History (Pentips) Allergies Allergy/AdvReac Type Severity Reaction Status Date / Time No Known Allergies Allergy Verified 08/03/22 11:44 Exam Vital signs: Vital Signs Temp 97.0 F 08/10/22 09:11 Pulse 94 08/10/22 09:11 Resp 16 08/10/22 09:11 BP 146/74 H 08/10/22 09:11 Pulse Ox 98 08/10/22 09:11 O2 Del Method 08/10/22 09:11 Intake & Output 08/09/22 08/10/22 08/10/22 18:59 06:59 18:59 Other: Weight 55.8 kg Weight in Grams [id number] Weight 55.8 kg BMI result Body Mass Index 18.7 - Constitutional Present: no acute distress - Routine HEENT Exam Head: Present: normal inspection Eye: Present: normal appearance ENT: Present: mucous membranes moist - Routine Neck Exam Present: full ROM - Routine Respiratory Exam Present: CTAB - Routine Cardiovascular Exam Cardiovascular: Present: RRR, S1, S2 - Routine Abdominal Exam Present: soft, nontender - Routine Extremities Exam Present: nontender - Routine Back/Spine/Pelvis Exam Back/Spine: Present: full ROM - Routine Skin Exam Present: intact - Routine Neurological Exam Present: alert, oriented X3 - Routine Psychiatric Exam Present: normal affect Data - Labs CBC & Chem 7: 06/16/22 Unknown 06/16/22 Unknown Assessment and Plan Patient Active problem list reviewed?: Yes (1) Carcinoma of thoracic esophagus Status: Inactive Assessment and plan: This is a pleasant 71 year-old gentleman diagnosed with Carcinoma of the Esophagus, back in summer. Upper endoscopy revealed a 4 cm mass extending from the EG junction to 1-2 cm below the EG junction. Pathology: Superficial fragments of adenocarcinoma, moderately differentiated, arising in a background of Mcintyre's esophagus. HER2: 0. Endoscopic ultrasound May 10 2019: T3, N0 lesion. PET scan revealed disease confined to the esophagus. He underwent neoadjuvant chemoradiation. He received carboplatin and Taxol weekly. PET scan on 10/04/2019 showed: Mild improvement in uptake in the distal esophagus and fundus of the stomach. C6 cervical vertebra showed uptake question of a lesion. Stable small right lower lung nodule. No uptake. Bone scan from 10/22/19 revealed: Mild abnormalities in several ribs likely representing chronic rib fractures an ongoing bone remodeling. Mild on specific abnormalities is all related to arthritis. He saw Dr. Stuart. He did offer surgical resection however patient was concerned about the risks involved and so declined. EGD from 12/07/2019: EG junction was located at 39 cm. There were 2 areas of ulceration 1 measuring 10 mm and 1 measuring 5 mm at the EG junction. The previous tumor was not seen. No stricture. Pathology: GE junction mucosa with moderate acute and chronic inflammation, mucin and detached fragments of granulation tissue consistent with ulcer and esophagitis, negative for dysplasia or malignancy. CT scan from 01/22/20 revealed: Stable pulmonary nodules compared to 03/15 019. He had an upper endoscopy by Dr. Mancini in November of 2019 which revealed: The EG junction was located at 39 cm. There were 2 areas of ulceration, one measuring approximately 10 mm and one measuring approximately 5 mm at the EG junction. The previous tumor was not seen. The scope passed easily into the stomach. There was no stricture. Pathology: A. GE junction, biopsies: Gastroesophageal junctional mucosa with moderate acute and chronic inflammation, mucin and detached fragments of granulation tissue consistent with ulcer and esophagitis; negative for intestinal metaplasia; negative for dysplasia or malignancy. He has been feeling reasonably well. He denies any further dysphagia. However lately he has had a cough with sputum. His appetite is not that good and he has been losing weight. He had a CT scan of the chest on 10/08/2021 which revealed: Limited evaluation of pulmonary nodules due to artifact from respiratory motion. The 3 mm calcified right upper lobe nodule is stable. Other previously identified pulmonary nodules are not identified. Interval increase in wall thickening of the distal thoracic esophagus, GE junction and proximal stomach compared to January 2020 exam. I referred him to Dr. Mancini, who proceeded with an upper endoscopy, on 11/17 which revealed: On November 17, he underwent an upper endoscopy by Dr. Mancini which revealed: Esophagus: There was ulceration and friability with heaped up mucosa beginning at about 34 cm and extending to the EG junction at 36 cm and into the stomach for approximately 1 cm to 2 cm below this. Biopsies were obtained from the abnormal mucosa. The mucosa was ulcerated and friable with heaped up margins suspicious for recurrent tumor as opposed to just changes from his previous chemoradiation treatments. The scope was easily passed into the stomach with minimal narrowing at the EG junction. Pathology revealed: Superficial fragments of adenocarcinoma, poorly differentiated from EG junction mass, 36 cm, 34 cm. HER2/April: Negative. CEA level: 12.30. I shared the results with him and his daughters. I offered them systemic chemotherapy with FOLFOX/XELOX plus/minus, nivolumab based chemotherapy.(based upon the PDL1 status.) They are going to discuss it with the family and get back to me about their decision. In the meantime will have him consult with Dr. Stuart, to get his opinion and to see if a stent would be feasible. He saw him a couple of months ago. That time, he did not feel a stent was feasible. I proceeded with PDL1 testing. This came back positive for PDL1 of 25. There were given written information about the chemotherapy regimens. Details of the regimen including potential side effects of hypersensitivity reaction, skin rash, arthralgias myalgias, nausea vomiting diarrhea, peripheral neuropathy, renal toxicity, hepatotoxicity, risk of infection, need for antibiotic, blood transfusion as well as growth factors were addressed with him. He understood and was willing to proceed. He had a Port-A-Cath placed to facilitate the chemotherapy. He started treatment 12/07. He is tolerating it very well. His symptoms of dysphagia have resolved. He is able to eat well. Database: CBC from 02/15: WBC 4, HGB 11.3, HCT 36.1, PLT 176. CMP from 02/15: Lytes WNL, BUN 18, [employer] 0.83, glucose 131. Calcium 9.2, albumin 3.5. LFTs: 0.7/180/34/29. CEA level: 5.80. CT scan of the chest and abdomen from 02/10, revealed: New right lower lobe nodules. Interval increase in wall thickening of the distal thoracic esophagus and GE junction. Wall thickening of the distal thoracic esophagus GE junction increased from previous exam. Thickened trabeculated bladder wall. Enlarged prostate gland. Abnormal soft tissue at the base of the bladder similar to previous exam probably related to lobulated contour of the prostate gland. New or increased gallbladder fundus wall thickening. Database: Labs from 03/29: CBC: WBC 9.9, HGB 11, HCT 34.8, MCV 89.2, PLT 95. CMP: Lytes WNL, glucose 154, Hermelindo 9.1, alb 3. LFTs: 0.7/243/31/21. CEA: 5.80. CBC from 05/03: WBC 7.6, HGB 10.9, HCT 34.1, PLT 92. CT chest from 04/16: Diffuse mural thickening involving mid and distal esophagus similar to previous study. There is mild wall thickening of the GE junction as well. There are several calcified and noncalcified nodules unchanged to the previous study. There are no new nodules. There is no abnormal mediastinal or axillary lymphadenopathy. He was in house between 06/19 to 06/20. With urinary retention. He saw Urology. Guerrero was placed. Due to ongoing neuropathy and treatment related side effects, he was treated with nivolumab with his last cycle, cycle 7 day 1. He is clinically doing well, now. His dysphagia has improved. Energy level is good. The treatment does appear to be working. I had a discussion with him and his daughter. He had a PET scan on 07/20, for restaging, it revealed: 1. No metabolically active disease is present. Note is made of persistent stable metabolically inactive nonspecific circumferential thickening within the distal thoracic esophagus extending into the GE junction region, may represent changes secondary to prior treatment, suboptimal distention /physiologic changes or combination thereof. Direct visualization may be considered if local disease recurrence is clinically suspected. 2. Stable sub-5 mm noncalcified right upper and right lower lung nodules, unchanged since 10/04/2019. 3. Stable sub-5 mm focal area of sclerosis involving L2 vertebral body, unchanged since 10/04/2019, without any concordant increased metabolic activity. 4. Diffuse atherosclerotic disease including coronary artery calcifications, without aneurysm, unchanged. 5. Interval placement of a Guerrero's catheter, appear in good position. PLAN: He is here for cycle 8, day 14 of his regimen. He will return in 2 weeks for a follow-up visit. All his and his daughter's questions were answered to his satisfaction. Thank you, CC: Dr. Hooks. Dr. Stuart. Dr. Mancini. - Time Spent With Patient Time Spent with Patient (in minutes): 30
--- NOTE | 2022-08-10 11:07 | HO.HEMONCSCH ---
Called Dr. Mancini's office to schedule a follow up, per the office they will call back once Dr. Mancini reviews pt's PET scan to get him an appt.
--- NOTE | 2022-08-10 11:20 | MHC.HEMONC ---
Here for c16 nivolumab (folfox on hold) accompanied by his daughter Reny. Looking and feeling well. Labs drawn yesterday, ok to proceed today. Port accessed, good blood return obtained. Premedicated with iv benadryl and tylenol. Nivolumab tolerated well. Dr Anna in to review PET scan results. He will follow up with Dr. Mancini (GI). Discharge packet provided, pt aware of next appt.
--- NOTE | 2022-08-12 08:53 | HO.HEMONCSCH ---
Pt is scheduled with Dr. Mancini on 09/03/22 at 1140. Left msg informing pt.
[2022-08-24] MEDS: Acetaminophen 325 MG TABLET 650 MG PO (09:58)
[2022-08-24] MEDS: diphenhydrAMINE HCL 50 MG/ML VIAL 25 MG IVPUSH (09:58)
[2022-08-24] MEDS: Ondansetron ODT 8 MG TAB.RAPDIS TRANSLINGU (09:59)
[2022-08-24 10:11] VITALS: BP 135/75; PULSE 93; RESP 16; TEMP 36.3; O2SAT 100; BMI 19.1
--- NOTE | 2022-08-24 14:21 | MHC.HEMONC ---
Here for C17 D1 Nivolumab. Labs done at home on 08/23 reviewed. Port accessed with good blood return noted. States is feeling good, except for c/o continued neuropathy to both hands. Dr Anna is aware. Pre-meds given as ordered. Treatment done and tolerated well. Port flushed with heparin and de-accessed. Next treatment scheduled for 2 weeks.
[2022-09-03] MEDS: 0.9 % Sodium Chloride 1,000 ML 500 ML IVCONT (12:30)
[2022-09-03 12:46] LABS: MANUAL DIFF FLAG NO
[2022-09-03 12:47] LABS: Basophils Percent Auto 0.4 % (0-2); Eosinophils Percent Auto 0.1 % (0-4); Hemoglobin 12.5 g/dl (14.0-18.0); Imm Gran Abs Auto 0.03 X10*3/uL (0.00-0.03); Imm Gran Pct Auto 0.4 % (0.0-0.4); Lymphocytes Absolute Auto 2.1 X10*3/uL (1.2-4.9); Mean Corpuscular HGB Conc 32.9 g/dl (31.0-36.0); Mean Corpuscular Hemoglobin 30.7 pg (27.0-33.0); Mean Corpuscular Volume 93.4 fL (80.0-98.0); Monocytes Absolute Auto 0.8 X10*3/uL (0.1-1.2); Monocytes Percent Auto 10.1 % (2-11); Neutrophils Absolute Auto 5.3 x10*3/uL (2.0-8.3); Platelet Count 303 X10*3/uL (160-400); Red Blood Count 4.07 X10*6/uL (4.60-5.80); Red Cell Distribution Width 14.4 % (11.0-16.0); White Blood Count 8.3 X10*3/uL (4.8-10.8)
[2022-09-03 13:05] LABS: Alanine Aminotransferase 26 U/L (0-40); Albumin Level 4.2 g/dL (3.5-5.0); Alkaline Phosphatase 345 U/L (39-117); Anion Gap 17 (12-20); Aspartate Amino Transferase 31 U/L (5-37); Bilirubin Total 0.6 mg/dL (0.0-1.0); Blood Urea Nitrogen 15 mg/dL (9-16); Calcium 9.6 mg/dL (8.4-10.2); Carbon Dioxide 25 mmol/L (22-29); Chloride 110 mmol/L (96-108); Creatinine Clr Calc Pharmacy 70.3; Estimated Glomerular Filt Rate > 60; Glucose Random 231 mg/dL (60-115); Potassium 3.8 mmol/L (3.3-5.1); Sodium 148 mmol/L (135-145); Total Protein 8.5 g/dL (6.5-8.0)
[2022-09-03 13:47] VITALS: BP 153/80; PULSE 109; RESP 16; TEMP 36.4; O2SAT 98
--- NOTE | 2022-09-03 16:31 | MHC.HEMONC ---
Pt here for IV hydration. Daughter states he was vomiting all night, unable to hold down anything. She states at times he made himself sick to get rid of the gas . Port accessed with good blood return noted. Labs obtained and results reviewed. Pt received zofran 16mg iv and 1L NS over 2 hours. He states he is feeling somewhat better. Prescription sent to pharmacy for zofran, pt stated he ran out at home. Scheduled for chemo 09/07. Port flushed with heparin 500units and de-accessed. Departed unit with family.
[2022-09-07 09:03] VITALS: BMI 19.1
[2022-09-07 09:06] VITALS: BP 124/64; PULSE 98; RESP 17; TEMP 36.9; O2SAT 100
[2022-09-07] MEDS: Ondansetron ODT 8 MG TAB.RAPDIS TRANSLINGU (10:02)
[2022-09-07] MEDS: Acetaminophen 325 MG TABLET 650 MG PO (10:02)
[2022-09-07] MEDS: diphenhydrAMINE HCL 50 MG/ML VIAL 25 MG IVPUSH (10:03)
--- NOTE | 2022-09-07 10:19 | MHC.HEMONC ---
Addendum entered by Humaira Cr RN 09/07/22 12:38: C18D1 continued note. Treatment Nivolumab infused. Pt toll well. Port de-accessed with heparin. Calendar given with next treatment in 2 weeks. Original Note: Pt here for C18D1 Nivolumab. Pt wheeled to [place] rm 1. Pt reports feeling much better. Nausea and Vomiting resolved. Labs were drawn 09/06/22. Labs reviewed. Port to right chest accessed. Good blood return. Site benign. Premeds given. waiting for treatment. Pt ate breakfast. toll well. Taking po fluids, no N/V.
[2022-09-21 09:04] VITALS: BP 147/73; PULSE 97; RESP 18; TEMP 36.2; O2SAT 100; BMI 19.3
--- NOTE | 2022-09-21 09:40 | P.PNHO-ONC_ITS ---
Medical Summary - Medical Summary Date of Service: 09/21/22 Chief complaint: Consult for: Carcinoma of the Esophagus. 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 Endoscopic ultrasound on May 10: Ulcerated and friable partially obstructing mass extending from the GE junction through the cardia. Mass is circumferential hypoechoic fairly well circumscribed and rather homogeneous. Penetrates the muscularis propria. Making it a T3 lesion. Numerous small shotty lymph node largest being 7.5 mm not pathologic by size criteria. Tumor extends onto the gastric cardia. Celiac adenopathy could not be assessed. CURRENT THERAPY: Started radiation: July 09 2019. Completed low-dose carboplatin and Taxol weekly 08/13/2019. Now with disease recurrence. Started on systemic chemotherapy with FOLFOX, plus Nivolumab, 12/07. Completed 6 cycles. Now on single agent nivolumab. Interval History Interval history: This is a pleasant 71 year-old gentleman here for a follow-up visit. He was in house between 06/19 to 06/20. Discharge summary: He was admitted for urinary retention and concern for severe leukocytosis. A Guerrero catheter was placed. He was started on finsteride and tamsulosin. He was discharged with Guerrero in place to follow up with Urology. Dr. Obrien recommended prostate medications. To leave the Guerrero in for 4 weeks. Leukocytosis was related to Neulasta. No evidence for infection or sepsis. He was hypotensive so losartan was held. Couple of weeks ago his chemotherapy was held, on account of side effects, neuropathy. He was having difficulty opening cans. He was given only nivolumab. He is feeling much better, with the break. His energy level is better. He had some difficulty swallowing with solids however, even the swallowing function has improved. He was seen by Dr. Bonilla on 07/09. His note: 71-year-old gentleman with multiple significant medical comorbidities here with his 2 daughters to discuss potential options in terms of nutrition. He does feel like he has lost 5-10 lb over the past several months and that he is actually able to get down soft foods but anything more solid seems to get stuck. Actually, the past few weeks he feels that this has improved slightly. We discussed the options of a feeding tube versus stent versus just continuing as he is. I did explain to them that an esophageal stent is only a temporary sy mptomatic reliever and that he still may be limited to soft foods with the risk of stent migration/pain/erosion. After our discussion they felt that there would be some but may be only minimal improvement with a stent in place and will continue to provide nutrition as it is. I did recommend a soft diet for him moving forward. He denies any pain. No headache no dizziness. He denies chest pain or trouble breathing. Sometimes he has a little bit of a cough at night The cough syrup helps. He denies any abdominal pain. He gets occasional nausea. He takes Zofran which helps. He gets occasional heartburn/ indigestion, for which he takes omeprazole. Bowels are working without any gross blood in it. He gets constipated. He takes MOM and fiber gummies. He has been able to eat very well. He does enjoy a good appetite. His weight is stable. He is in good spirits. Rest of the review of systems is unremarkable. Interim history:. He was in house between 01/17 and 01/19/22. Discharge summary: Presented with burning with urination that started a few days ago. He reported dysuria and frequency but denied hematuria as well as fever, chills, nausea or vomiting.? He is currently undergoing chemotherapy for esophageal cancer at [facility] oncology.? White blood cell count was noted to be elevated at 46,000, lactic acid 2.7, tachycardia and tachypnea.? Urinalysis was positive for UTI, chest x- ray: Negative.? He was given a dose of Rocephin IV fluids in the ER.? Was admitted for further management and treatment of severe sepsis secondary to urinary tract infection. Severe sepsis secondary to urinary tract infection. Treated with IV Rocephin. Resolved Leukocytosis, tachycardia, tachypnea, lactic acidosis. Blood cultures up to 24 hours: Negative. Previous history: At his previous visit, in November,: He tells me that he has had some difficulty swallowing lately. It is mostly to solids. Liquids go down easily. It is a level 6 on 1-10 scale. Sometimes while eating he has a choking sensation. He is mostly taking soft diet including oatmeal, soups and rice. He tries to avoid chicken since it causes acid reflux. Patient was seen here back in mid . He complained that over the past couple of weeks he noted a cough. Would bring up clear sputum. He had been using DayQuil and NyQuil for symptoms. His appetite had declined. He denied obvious dysphagia or odynophagia. He had a CT scan of the chest on 10/08/2021 which revealed: Limited evaluation of pulmonary nodules due to artifact from respiratory motion. The 3 mm calcified right upper lobe nodule is stable. Other previously identified pulmonary nodules are not identified. Interval increase in wall thickening of the distal thoracic esophagus, GE junction and proximal stomach compared to January 2020 exam. On November 17, he underwent an upper endoscopy by Dr. Mancini which revealed: Esophagus: There was ulceration and friability with heaped up mucosa beginning at about 34 cm and extending to the EG junction at 36 cm and into the stomach for approximately 1 cm to 2 cm below this. Biopsies were obtained from the abnormal mucosa. The mucosa was ulcerated and friable with heaped up margins suspicious for recurrent tumor as opposed to just changes from his previous chemoradiation treatments. The scope was easily passed into the stomach with minimal narrowing at the EG junction. Pathology revealed: Superficial fragments of adenocarcinoma, poorly differentiated from EG junction mass, 36 cm, 34 cm. Review of Systems - Constitutional Reports system reviewed and no additional complaints, except as documented - Eyes Reports system reviewed and no additional complaints, except as documented - ENT Reports system reviewed and no additional complaints, except as documented - Cardiovascular Reports system reviewed and no additional complaints, except as documented - Respiratory Reports no additional respiratory complaints - Gastrointestinal Reports system reviewed and no additional complaints, except as documented - Genitourinary Genitourinary: Reports no additional male genitourinary complaints - Musculoskeletal Reports system reviewed and no additional complaints, except as documented - Integumentary/Breasts Skin/Breast: Reports no additional skin complaints - Neurologic Reports system reviewed and no additional complaints, except as documented, Denies behavioral changes, Denies weakness - Psychiatric Reports system reviewed and no additional complaints, except as documented - Endocrine Reports no additional endocrine complaints - Hematologic/Lymphatic Reports system reviewed and no additional complaints, except as documented - Allergic/Immunologic Reports system reviewed and no additional complaints, except as documented PMFSH Medical History: Medical History (Last Reviewed 09/15/22 @ 03:23 by Norm Hooks MD) Adenocarcinoma of cardio-esophageal junction Onset Date: ~2018 Anxiety Benign essential hypertension Constipation Depression Diabetes type 2, uncontrolled Diabetic nephropathy associated with type 2 diabetes mellitus Diabetic neuropathy associated with type 2 diabetes mellitus HLD (hyperlipidemia) 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 Surgical History: Surgical History (Last Reviewed 09/15/22 @ 03:23 by Norm Hooks MD) History of atherectomy Onset Date: ~2018 History of esophagogastroduodenoscopy History of left below knee amputation Onset Date: ~2019 Social History: Social History (Last Reviewed 09/15/22 @ 03:23 by Norm Hooks MD) Living Situation History: Household Members: Family Housing: House Tobacco History: Patient Tobacco Use Status: Never used Tobacco e-Cigarette/Vaping Use: Never Used Second Hand Smoke Exposure: Yes Advance Directives: Advance Directives Date on File: 08/19/20 Nutrition Assessment: Patient : No Occupation Assessmet: service: No Current occupational status: retired Current occupational status: disabled Oncology Screenings - ECOG Performance Status ECOG Performance Status: 2 Home Medications and Allergies Current Medications: Current Medications Acetaminophen (Acetaminophen 325 Mg Tablet) 650 mg PO ONCE COURTNEY Stop: 09/21/22 23:59 Diphenhydramine HCl (Diphenhydramine Hcl 50 Mg/Ml Vial) 25 mg IVPUSH ONCE COURTNEY Stop: 09/21/22 23:59 Ondansetron HCl (Ondansetron Odt 8 Mg Tab.Rapdis) 8 mg TRANSLINGU ONCE COURTNEY Stop: 09/21/22 23:59 Home Medications Medication Instructions Recorded Confirmed Type aluminum-mag hydroxide-simethicone 80 ml PO USEASDIRECTD 06/19/22 09/15/22 History 400 mg-400 mg-40 mg/5 mL oral susp (Antacid Maximum Strength) blood sugar diagnostic (FreeStyle 06/19/22 09/15/22 History Lite Strips) cholecalciferol (vitamin D3) 25 1 cap PO QAM 06/19/22 09/15/22 History mcg (1,000 unit) capsule (Vitamin D3) diphenhydramine HCl 12.5 mg/5 mL See Rx Instructions .Route .COMPLEX 06/19/22 09/15/22 History oral liquid (Allergy Relief (diphenhydramine)) docusate sodium 100 mg capsule 2 cap PO QPM 06/19/22 09/15/22 History ferrous sulfate 325 mg (65 mg 1 tab PO QAM 06/19/22 09/15/22 History iron) tablet (FeroSul) glucagon 0.5 mg/0.1 mL 0.1 ml subcut DAILY diabetes 06/19/22 09/15/22 History subcutaneous auto-injector (Gvoke mellitus HypoPen 2-Pack) metoprolol succinate 25 mg 0.5 tab PO QPM 06/19/22 09/15/22 History tablet,extended release 24 hr pen needle, diabetic 32 gauge x 06/19/22 09/15/22 History 5/32 (Pentips) duloxetine 30 mg capsule,delayed 30 mg PO 09/08/22 09/15/22 History release losartan 100 mg tablet 100 mg PO DAILY 09/08/22 09/15/22 History metformin 500 mg tablet,extended 1,000 mg PO BID 09/08/22 09/15/22 History release 24 hr Allergies Allergy/AdvReac Type Severity Reaction Status Date / Time No Known Allergies Allergy Verified 09/15/22 02:56 Exam Vital signs: Vital Signs Temp 97.1 F 09/21/22 09:04 Pulse 97 09/21/22 09:04 Resp 18 09/21/22 09:04 BP 147/73 H 09/21/22 09:04 Pulse Ox 100 09/21/22 09:04 O2 Del Method 09/21/22 09:04 Intake & Output 09/20/22 09/21/22 09/21/22 18:59 06:59 18:59 Other: Weight 57.8 kg Weight in Grams [id number] Weight 57.8 kg BMI result Body Mass Index 19.3 - Constitutional Present: no acute distress - Routine HEENT Exam Head: Present: normal inspection Eye: Present: normal appearance ENT: Present: mucous membranes moist - Routine Neck Exam Present: full ROM - Routine Respiratory Exam Present: CTAB - Routine Cardiovascular Exam Cardiovascular: Present: RRR, S1, S2 - Routine Abdominal Exam Present: soft, nontender - Routine Extremities Exam Present: nontender - Routine Back/Spine/Pelvis Exam Back/Spine: Present: full ROM - Routine Skin Exam Present: intact - Routine Neurological Exam Present: alert, oriented X3 - Routine Psychiatric Exam Present: normal affect Data - Labs CBC & Chem 7: 09/03/22 12:30 09/21/22 09:28 Assessment and Plan Patient Active problem list reviewed?: Yes (1) Carcinoma of thoracic esophagus Status: Inactive Assessment and plan: This is a pleasant 71 year-old gentleman diagnosed with Carcinoma of the Esophagus, back in summer. Upper endoscopy revealed a 4 cm mass extending from the EG junction to 1-2 cm below the EG junction. Pathology: Superficial fragments of adenocarcinoma, moderately differentiated, arising in a background of Mcintyre's esophagus. HER2: 0. Endoscopic ultrasound May 10 2019: T3, N0 lesion. PET scan revealed disease confined to the esophagus. He underwent neoadjuvant chemoradiation. He received carboplatin and Taxol weekly. PET scan on 10/04/2019 showed: Mild improvement in uptake in the distal esophagus and fundus of the stomach. C6 cervical vertebra showed uptake question of a lesion. Stable small right lower lung nodule. No uptake. Bone scan from 10/22/19 revealed: Mild abnormalities in several ribs likely representing chronic rib fractures an ongoing bone remodeling. Mild on specific abnormalities is all related to arthritis. He saw Dr. Stuart. He did offer surgical resection however patient was concerned about the risks involved and so declined. EGD from 12/07/2019: EG junction was located at 39 cm. There were 2 areas of ulceration 1 measuring 10 mm and 1 measuring 5 mm at the EG junction. The previous tumor was not seen. No stricture. Pathology: GE junction mucosa with moderate acute and chronic inflammation, mucin and detached fragments of granulation tissue consistent with ulcer and esophagitis, negative for dysplasia or malignancy. CT scan from 01/22/20 revealed: Stable pulmonary nodules compared to 03/15 019. He had an upper endoscopy by Dr. Mancini in November of 2019 which revealed: The EG junction was located at 39 cm. There were 2 areas of ulceration, one measuring approximately 10 mm and one measuring approximately 5 mm at the EG junction. The previous tumor was not seen. The scope passed easily into the stomach. There was no stricture. Pathology: A. GE junction, biopsies: Gastroesophageal junctional mucosa with moderate acute and chronic inflammation, mucin and detached fragments of granulation tissue consistent with ulcer and esophagitis; negative for intestinal metaplasia; negative for dysplasia or malignancy. He has been feeling reasonably well. He denies any further dysphagia. However lately he has had a cough with sputum. His appetite is not that good and he has been losing weight. He had a CT scan of the chest on 10/08/2021 which revealed: Limited evaluation of pulmonary nodules due to artifact from respiratory motion. The 3 mm calcified right upper lobe nodule is stable. Other previously identified pulmonary nodules are not identified. Interval increase in wall thickening of the distal thoracic esophagus, GE junction and proximal stomach compared to January 2020 exam. I referred him to Dr. Mancini, who proceeded with an upper endoscopy, on 11/17 which revealed: On November 17, he underwent an upper endoscopy by Dr. Mancini which revealed: Esophagus: There was ulceration and friability with heaped up mucosa beginning at about 34 cm and extending to the EG junction at 36 cm and into the stomach for approximately 1 cm to 2 cm below this. Biopsies were obtained from the abnormal mucosa. The mucosa was ulcerated and friable with heaped up margins suspicious for recurrent tumor as opposed to just changes from his previous chemoradiation treatments. The scope was easily passed into the stomach with minimal narrowing at the EG junction. Pathology revealed: Superficial fragments of adenocarcinoma, poorly differentiated from EG junction mass, 36 cm, 34 cm. HER2/April: Negative. CEA level: 12.30. I shared the results with him and his daughters. I offered them systemic chemotherapy with FOLFOX/XELOX plus/minus, nivolumab based chemotherapy.(based upon the PDL1 status.) They are going to discuss it with the family and get back to me about their decision. In the meantime will have him consult with Dr. Stuart, to get his opinion and to see if a stent would be feasible. He saw him a couple of months ago. That time, he did not feel a stent was feasible. I proceeded with PDL1 testing. This came back positive for PDL1 of 25. There were given written information about the chemotherapy regimens. Details of the regimen including potential side effects of hypersensitivity reaction, skin rash, arthralgias myalgias, nausea vomiting diarrhea, peripheral neuropathy, renal toxicity, hepatotoxicity, risk of infection, need for anti biotic, blood transfusion as well as growth factors were addressed with him. He understood and was willing to proceed. He had a Port-A-Cath placed to facilitate the chemotherapy. He started treatment 12/07. He is tolerating it very well. His symptoms of dysphagia have resolved. He is able to eat well. Database: CBC from 02/15: WBC 4, HGB 11.3, HCT 36.1, PLT 176. CMP from 02/15: Lytes WNL, BUN 18, MOTORCYCLE DELIVERER 0.83, glucose 131. Calcium 9.2, albumin 3.5. LFTs: 0.7/180/34/29. CEA level: 5.80. CT scan of the chest and abdomen from 02/10, revealed: New right lower lobe nodules. Interval increase in wall thickening of the distal thoracic esophagus and GE junction. Wall thickening of the distal thoracic esophagus GE junction increased from previous exam. Thickened trabeculated bladder wall. Enlarged prostate gland. Abnormal soft tissue at the base of the bladder similar to previous exam probably related to lobulated contour of the prostate gland. New or increased gallbladder fundus wall thickening. Database: Labs from 03/29: CBC: WBC 9.9, HGB 11, HCT 34.8, MCV 89.2, PLT 95. CMP: Lytes WNL, glucose 154, Hermelindo 9.1, alb 3. LFTs: 0.7/243/31/21. CEA: 5.80. CBC from 05/03: WBC 7.6, HGB 10.9, HCT 34.1, PLT 92. CT chest from 04/16: Diffuse mural thickening involving mid and distal esophagus similar to previous study. There is mild wall thickening of the GE junction as well. There are several calcified and noncalcified nodules unchanged to the previous study. There are no new nodules. There is no abnormal mediastinal or axillary lymphadenopathy. He was in house between 06/19 to 06/20. With urinary retention. He saw Urology. Guerrero was placed. Due to ongoing neuropathy and treatment related side effects, he was treated with nivolumab with his last cycle, cycle 7 day 1. He is clinically doing well, now. His dysphagia has improved. Energy level is good. The treatment does appear to be working. I had a discussion with him and his daughter. He had a PET scan on 07/20, for restaging, it revealed: 1. No metabolically active disease is present. Note is made of persistent stable metabolically inactive nonspecific circumferential thickening within the distal thoracic esophagus extending into the GE junction region, may represent changes secondary to prior treatment, suboptimal distention /physiologic changes or combination thereof. Direct visualization may be considered if local disease recurrence is clinically suspected. 2. Stable sub-5 mm noncalcified right upper and right lower lung nodules, unchanged since 10/04/2019. 3. Stable sub-5 mm focal area of sclerosis involving L2 vertebral body, unchanged since 10/04/2019, without any concordant increased metabolic activity. 4. Diffuse atherosclerotic disease including coronary artery calcifications, without aneurysm, unchanged. 5. Interval placement of a Guerrero's catheter, appear in good position. In view of the toxicity and stable disease his regimen was switched over to maintenance nivolumab. He has been tolerating that well. PLAN: He is here for cycle 8, day 14 of his regimen. He will return in 2 weeks for a follow-up visit. All his and his daughter's questions were answered to his satisfaction. Thank you, CC: Dr. Hooks. Dr. Stuart. Dr. Mancini. - Time Spent With Patient Time Spent with Patient (in minutes): 30
[2022-09-21 10:15] LABS: Alanine Aminotransferase 23 U/L (0-40); Albumin Level 3.6 g/dL (3.5-5.0); Alkaline Phosphatase 311 U/L (39-117); Anion Gap 15 (12-20); Aspartate Amino Transferase 27 U/L (5-37); Bilirubin Total 0.4 mg/dL (0.0-1.0); Blood Urea Nitrogen 9 mg/dL (9-16); Carbon Dioxide 25 mmol/L (22-29); Chloride 103 mmol/L (96-108); Creatinine Clr Calc Pharmacy 72.9; Estimated Glomerular Filt Rate > 60; Glucose Random 290 mg/dL (60-115); Potassium 3.9 mmol/L (3.3-5.1); Sodium 139 mmol/L (135-145); Total Protein 7.4 g/dL (6.5-8.0)
[2022-09-21] MEDS: Ondansetron ODT 8 MG TAB.RAPDIS TRANSLINGU (10:27)
[2022-09-21] MEDS: diphenhydrAMINE HCL 50 MG/ML VIAL 25 MG IVPUSH (10:27)
[2022-09-21] MEDS: Acetaminophen 325 MG TABLET 650 MG PO (10:27)
--- NOTE | 2022-09-21 11:58 | MHC.HEMONC ---
follow up with dr kingston pt c/o con't bilat finger numbness, duloxetine ordered and sent to pharm. pt tolerated treatment well no s/sx of reaction. cmp not drawn at home yesterday, drawn to day
[2022-10-05 09:05] VITALS: BP 143/69; PULSE 94; RESP 18; TEMP 37; O2SAT 100; BMI 19.5
[2022-10-05 09:19] LABS: MANUAL DIFF FLAG NO
[2022-10-05 09:21] LABS: Basophils Percent Auto 0.3 % (0-2); Eosinophils Absolute Auto 0.2 X10*3/uL (0.0-0.4); Eosinophils Percent Auto 2.4 % (0-4); Hematocrit 35.2 % (42.0-52.0); Hemoglobin 11.4 g/dl (14.0-18.0); Imm Gran Abs Auto 0.02 X10*3/uL (0.00-0.03); Imm Gran Pct Auto 0.3 % (0.0-0.4); Lymphocytes Absolute Auto 2.9 X10*3/uL (1.2-4.9); Lymphocytes Percent Auto 42.2 % (20-40); Mean Corpuscular HGB Conc 32.4 g/dl (31.0-36.0); Mean Corpuscular Hemoglobin 29.3 pg (27.0-33.0); Mean Corpuscular Volume 90.5 fL (80.0-98.0); Mean Platelet Volume 10.3 fL (9.4-12.4); Monocytes Absolute Auto 0.9 X10*3/uL (0.1-1.2); Monocytes Percent Auto 12.7 % (2-11); Neutrophils Absolute Auto 2.8 x10*3/uL (2.0-8.3); Neutrophils Percent Auto 42.1 % (45-73); Platelet Count 225 X10*3/uL (160-400); Red Blood Count 3.89 X10*6/uL (4.60-5.80); Red Cell Distribution Width 14.5 % (11.0-16.0); White Blood Count 6.8 X10*3/uL (4.8-10.8)
[2022-10-05 09:47] LABS: Alanine Aminotransferase 22 U/L (0-40); Albumin Level 3.7 g/dL (3.5-5.0); Alkaline Phosphatase 290 U/L (39-117); Anion Gap 13 (12-20); Aspartate Amino Transferase 26 U/L (5-37); Bilirubin Direct 0.2 mg/dL (0.0-0.5); Bilirubin Total 0.5 mg/dL (0.0-1.0); Blood Urea Nitrogen 15 mg/dL (9-16); Calcium 8.8 mg/dL (8.4-10.2); Carbon Dioxide 26 mmol/L (22-29); Chloride 103 mmol/L (96-108); Creatinine Clr Calc Pharmacy 77.7; Estimated Glomerular Filt Rate > 60; Glucose Random 266 mg/dL (60-115); Potassium 3.8 mmol/L (3.3-5.1); Sodium 138 mmol/L (135-145); Total Protein 7.3 g/dL (6.5-8.0)
[2022-10-05] MEDS: Ondansetron ODT 8 MG TAB.RAPDIS TRANSLINGU (10:23)
[2022-10-05] MEDS: diphenhydrAMINE HCL 50 MG/ML VIAL 25 MG IVPUSH (10:23)
[2022-10-05] MEDS: Acetaminophen 325 MG TABLET 650 MG PO (10:23)
[2022-10-05] MEDS: Heparin Sodium,Porcine Flush 500 UNIT/5 ML SYRINGE IVFLUSH (10:26)
[2022-10-05 12:00] LABS: Thyroid Stimulating Hormone 3.99 uIU/mL (0.32-4.0)
--- NOTE | 2022-10-05 15:40 | MHC.HEMONC ---
Pt here for C20D1 Nivolumab. 14 day cycle. Pt wheeled to tx room 3. Pt only complaint is Mild neuropathy in fingers. Port to right chest accessed, blood drawn an sent to lab. Results reviewed. Pre meds given Tylenol, Zofran PO and Benadryl IV. Nivolumab infused. Pt toll well. Port de accessed with heparin. Pt given Summary with schedule for next treatment 2 weeks C21D1.
[2022-10-19 09:12] VITALS: BP 154/86; PULSE 106; RESP 18; TEMP 36.4; O2SAT 99
[2022-10-19] MEDS: Acetaminophen 325 MG TABLET 650 MG PO (09:17)
[2022-10-19] MEDS: Ondansetron ODT 8 MG TAB.RAPDIS TRANSLINGU (09:17)
[2022-10-19] MEDS: diphenhydrAMINE HCL 50 MG/ML VIAL 25 MG IVPUSH (09:22)
--- NOTE | 2022-11-01 13:29 | MHC.HEMONC ---
I received call from Chemistry re: critical glucose of 54 at 10 am this morning (home draw). I reported to Dr Anna. I called pt at his home and per his daughter he is feeling fine and has been enjoying a good appetite. He is sure to follow his blood glucose checks. Chemo tomorrow as other labs look good.
[2022-11-02] MEDS: Ondansetron ODT 8 MG TAB.RAPDIS TRANSLINGU (09:31)
[2022-11-02] MEDS: Acetaminophen 325 MG TABLET 650 MG PO (09:31)
[2022-11-02] MEDS: diphenhydrAMINE HCL 50 MG/ML VIAL 25 MG IVPUSH (09:32)
[2022-11-02 09:40] VITALS: BP 141/78; PULSE 108; RESP 18; TEMP 36.8; O2SAT 99; BMI 20.6
--- NOTE | 2022-11-10 15:22 | HO.HEMONCSCH ---
Nurse called pt's dtr, Elizabeth, asked her to please reschedule her father's next tx to be on 11/19/22 next week, as the clinic will be over-booked on 11/16/22. She agreed, will bring pt in on 11/19/22.
[2022-11-19 09:16] VITALS: BP 159/77; PULSE 100; RESP 18; TEMP 36.6; O2SAT 100; BMI 20.9
[2022-11-19 09:35] LABS: MANUAL DIFF FLAG NO
[2022-11-19 09:40] LABS: Basophils Percent Auto 0.5 % (0-2); Eosinophils Absolute Auto 0.2 X10*3/uL (0.0-0.4); Eosinophils Percent Auto 2.3 % (0-4); Hematocrit 38.6 % (42.0-52.0); Hemoglobin 12.4 g/dl (14.0-18.0); Imm Gran Abs Auto 0.03 X10*3/uL (0.00-0.03); Imm Gran Pct Auto 0.4 % (0.0-0.4); Lymphocytes Absolute Auto 2.9 X10*3/uL (1.2-4.9); Lymphocytes Percent Auto 39.5 % (20-40); Mean Corpuscular HGB Conc 32.1 g/dl (31.0-36.0); Mean Corpuscular Hemoglobin 28.3 pg (27.0-33.0); Mean Corpuscular Volume 88.1 fL (80.0-98.0); Monocytes Absolute Auto 0.9 X10*3/uL (0.1-1.2); Monocytes Percent Auto 11.7 % (2-11); Neutrophils Absolute Auto 3.4 x10*3/uL (2.0-8.3); Neutrophils Percent Auto 45.6 % (45-73); Platelet Count 324 X10*3/uL (160-400); Red Blood Count 4.38 X10*6/uL (4.60-5.80); Red Cell Distribution Width 15.1 % (11.0-16.0); White Blood Count 7.4 X10*3/uL (4.8-10.8)
--- NOTE | 2022-11-19 09:40 | PM.HEMONCPN ---
Medical Summary - Medical Summary Date of Service: 11/19/22 Chief complaint: Follow-up for: Non-small cell lung carcinoma. 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 Endoscopic ultrasound on May 10: Ulcerated and friable partially obstructing mass extending from the GE junction through the cardia. Mass is circumferential hypoechoic fairly well circumscribed and rather homogeneous. Penetrates the muscularis propria. Making it a T3 lesion. Numerous small shotty lymph node largest being 7.5 mm not pathologic by size criteria. Tumor extends onto the gastric cardia. Celiac adenopathy could not be assessed. CURRENT THERAPY: Started radiation: July 09 2019. Completed low-dose carboplatin and Taxol weekly 08/13/2019. Now with disease recurrence. Started on systemic chemotherapy with FOLFOX, plus Nivolumab, 12/07. Completed 6 cycles. Now on single agent nivolumab, # 23 today. Interval History Interval history: This is a pleasant 72 year-old gentleman here for a follow-up visit. He had complained about trouble swallowing. He actually underwent an upper endoscopy on 10/[address] Mancini. He had a stricture at 25 cm. That was dilated. After that the rest of the esophagus was clean. Fortunately, pathology came back negative. Since then he is able to swallow without difficulty. He has been eating everything and has actually gained weight. His energy level has improved as well. He denies any pain. No headache no dizziness. He denies chest pain or trouble breathing. Sometimes he has a little bit of a cough at night The cough syrup helps. He denies any abdominal pain. He gets occasional nausea. He takes Zofran which helps. He gets occasional heartburn/ indigestion, for which he takes omeprazole. Bowels are working without any gross blood in it. He gets constipated. He takes MOM and fiber gummies. He has been able to eat very well. He does enjoy a good appetite. His weight is stable. He is in good spirits. Rest of the review of systems is unremarkable. Recent history: He was in house between 06/19 to 06/20/22. Discharge summary: He was admitted for urinary retention and concern for severe leukocytosis. A Guerrero catheter was placed. He was started on finsteride and tamsulosin. He was discharged with Guerrero in place to follow up with Urology. Dr. Obrien recommended prostate medications. To leave the Guerrero in for 4 weeks. Leukocytosis was related to Neulasta. No evidence for infection or sepsis. He was hypotensive so losartan was held. Couple of weeks ago his chemotherapy was held, on account of side effects, neuropathy. He was having difficulty opening cans. He was given only nivolumab. He is feeling much better, with the break. His energy level is better. He had some difficulty swallowing with solids however, even the swallowing function has improved. He was seen by Dr. Bonilla on 07/09. His note: 71-year-old gentleman with multiple significant medical comorbidities here with his 2 daughters to discuss potential options in terms of nutrition. He does feel like he has lost 5-10 lb over the past several months and that he is actually able to get down soft foods but anything more solid seems to get stuck. Actually, the past few weeks he feels that this has improved slightly. We discussed the options of a feeding tube versus stent versus just continuing as he is. I did explain to them that an esophageal stent is only a temporary symptomatic reliever and that he still may be limited to soft foods with the risk of stent migration/pain/erosion. After our discussion they felt that there would be some but may be only minimal improvement with a stent in place and will continue to provide nutrition as it is. I did recommend a soft diet for him moving forward. Interim history:. He was in house between 01/17 and 01/19/22. Discharge summary: Presented with burning with urination that started a few days ago. He reported dysuria and frequency but denied hematuria as well as fever, chills, nausea or vomiting.? He is currently undergoing chemotherapy for esophageal cancer at [facility] oncology.? White blood cell count was noted to be elevated at 46,000, lactic acid 2.7, tachycardia and tachypnea.? Urinalysis was positive for UTI, chest x-ray: Negative.? He was given a dose of Rocephin IV fluids in the ER.? Was admitted for further management and treatment of severe sepsis secondary to urinary tract infection. Severe sepsis secondary to urinary tract infection. Treated with IV Rocephin. Resolved Leukocytosis, tachycardia, tachypnea, lactic acidosis. Blood cultures up to 24 hours: Negative. Previous history: At his previous visit, in November,: He tells me that he has had some difficulty swallowing lately. It is mostly to solids. Liquids go down easily. It is a level 6 on 1-10 scale. Sometimes while eating he has a choking sensation. He is mostly taking soft diet including oatmeal, soups and rice. He tries to avoid chicken since it causes acid reflux. Patient was seen here back in mid . He complained that over the past couple of weeks he noted a cough. Would bring up clear sputum. He had been using DayQuil and NyQuil for symptoms. His appetite had declined. He denied obvious dysphagia or odynophagia. He had a CT scan of the chest on 10/08/2021 which revealed: Limited evaluation of pulmonary nodules due to artifact from respiratory motion. The 3 mm calcified right upper lobe nodule is stable. Other previously identified pulmonary nodules are not identified. Interval increase in wall thickening of the distal thoracic esophagus, GE junction and proximal stomach compared to January 2020 exam. On November 17, he underwent an upper endoscopy by Dr. Mancini which revealed: Esophagus: There was ulceration and friability with heaped up mucosa beginning at about 34 cm and extending to the EG junction at 36 cm and into the stomach for approximately 1 cm to 2 cm below this. Biopsies were obtained from the abnormal mucosa. The mucosa was ulcerated and friable with heaped up margins suspicious for recurrent tumor as opposed to just changes from his previous chemoradiation treatments. The scope was easily passed into the stomach with minimal narrowing at the EG junction. Pathology revealed: Superficial fragments of adenocarcinoma, poorly differentiated from EG junction mass, 36 cm, 34 cm. Review of Systems - Constitutional Reports no additional constitutional complaints, Denies fatigue, Denies weakness, Reports weight gain - Eyes Reports no additional eye complaints - ENT Reports no additional ear, nose, mouth, and throat complaints - Cardiovascular Reports no additional cardiovascular complaints - Respiratory Reports no additional respiratory complaints - Gastrointestinal Reports no additional gastrointestinal complaints - Genitourinary Genitourinary: Reports no additional male genitourinary complaints - Musculoskeletal Reports no additional musculoskeletal complaints - Integumentary/Breasts Skin/Breast: Reports no additional skin complaints - Neurologic Reports no additional neurologic complaints, Denies behavioral changes, Denies weakness - Psychiatric Reports no additional psychiatric complaints - Endocrine Reports no additional endocrine complaints - Hematologic/Lymphatic Reports no additional hematologic/lymphatic complaints - Allergic/Immunologic Reports no additional allergic/immunologic complaints [facility] Medical History: Medical History (Last Updated 10/15/22 @ 09:26 by Patricia Khan RN) Adenocarcinoma of cardio-esophageal junction Onset Date: ~2018 Anxiety Benign essential hypertension Constipation Depression Diabetes type 2, uncontrolled Diabetic nephropathy associated with type 2 diabetes mellitus Diabetic neuropathy associated with type 2 diabetes mellitus HLD (hyperlipidemia) Keratotic lesion 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 Surgical History: Surgical History (Last Reviewed 09/15/22 @ 03:23 by Norm Hooks MD) History of atherectomy Onset Date: ~2018 History of esophagogastroduodenoscopy History of left below knee amputation Onset Date: ~2018 Social History: Social History (Last Reviewed 09/15/22 @ 03:23 by Norm Hooks MD) Living Situation History: Household Members: Family Housing: House Tobacco History: Patient Tobacco Use Status: Never used Tobacco e-Cigarette/Vaping Use: Never Used Second Hand Smoke Exposure: Yes Advance Directives: Advance Directives Date on File: 08/19/20 Nutrition Assessment: Patient : No Occupation Assessmet: service: No Current occupational status: retired Current occupational status: disabled Oncology Screenings - ECOG Performance Status ECOG Performance Status: 2 Home Medications and Allergies Current Medications: Current Medications Acetaminophen (Acetaminophen 325 Mg Tablet) 650 mg PO ONCE COURTNEY Stop: 11/19/22 23:59 Diphenhydramine HCl (Diphenhydramine Hcl 50 Mg/Ml Vial) 25 mg IVPUSH ONCE COURTNEY Stop: 11/19/22 23:59 Ondansetron HCl (Ondansetron Odt 8 Mg Tab.Rapdis) 8 mg TRANSLINGU ONCE COURTNEY Stop: 11/19/22 23:59 Home Medications Medication Instructions Recorded Confirmed Type aluminum-mag hydroxide-simethicone 80 ml PO USEASDIRECTD 06/19/22 09/15/22 History 400 mg-400 mg-40 mg/5 mL oral susp (Antacid Maximum Strength) blood sugar diagnostic (FreeStyle 06/19/22 09/15/22 History Lite Strips) cholecalciferol (vitamin D3) 25 1 cap PO QAM 06/19/22 09/15/22 History mcg (1,000 unit) capsule (Vitamin D3) diphenhydramine HCl 12.5 mg/5 mL See Rx Instructions .Route .COMPLEX 06/19/22 09/15/22 History oral liquid (Allergy Relief (diphenhydramine)) ferrous sulfate 325 mg (65 mg 1 tab PO QAM 06/19/22 09/15/22 History iron) tablet (FeroSul) glucagon 0.5 mg/0.1 mL 0.1 ml subcut DAILY diabetes 06/19/22 09/15/22 History subcutaneous auto-injector (Gvoke mellitus HypoPen 2-Pack) metoprolol succinate 25 mg 0.5 tab PO QPM 06/19/22 09/15/22 History tablet,extended release 24 hr pen needle, diabetic 32 gauge x 06/19/22 09/15/22 History /32 (Pentips) duloxetine 30 mg capsule,delayed 30 mg PO 09/08/22 09/15/22 History release losartan 100 mg tablet 100 mg PO DAILY 09/08/22 09/15/22 History metformin 500 mg tablet,extended 1,000 mg PO BID 09/08/22 09/15/22 History release 24 hr Allergies Allergy/AdvReac Type Severity Reaction Status Date / Time No Known Allergies Allergy Verified 09/15/22 02:56 Exam Vital signs: Vital Signs Temp 97.8 F 11/19/22 09:16 Pulse 100 11/19/22 09:16 Resp 18 11/19/22 09:16 BP 159/77 H 11/19/22 09:16 Pulse Ox 100 11/19/22 09:16 O2 Del Method 11/19/22 09:16 Intake & Output 11/18/22 11/19/22 11/19/22 18:59 06:59 18:59 Other: Weight 62.6 kg [place] Weight in Grams [id number] Weight 62.6 kg BMI result Body Mass Index 20.9 - Constitutional Present: no acute distress - Routine HEENT Exam Head: Present: normal inspection Eye: Present: normal appearance ENT: Present: mucous membranes moist - Routine Neck Exam Present: full ROM - Routine Respiratory Exam Present: CTAB - Routine Cardiovascular Exam Cardiovascular: Present: RRR, S1, S2 - Routine Abdominal Exam Present: soft, nontender - Routine Extremities Exam Present: nontender - Routine Back/Spine/Pelvis Exam Back/Spine: Present: full ROM - Routine Skin Exam Present: intact - Routine Neurological Exam Present: alert, oriented X3 - Routine Psychiatric Exam Present: normal affect Data - Labs CBC & Chem 7: 11/19/22 09:20 11/19/22 09:20 Assessment and Plan Patient Active problem list reviewed?: Yes (1) Carcinoma of thoracic esophagus Status: Inactive Assessment and plan: This is a pleasant 71 year-old gentleman diagnosed with Carcinoma of the Esophagus, back in summer. Upper endoscopy revealed a 4 cm mass extending from the EG junction to 1-2 cm below the EG junction. Pathology: Superficial fragments of adenocarcinoma, moderately differentiated, arising in a background of Mcintyre's esophagus. HER2: 0. Endoscopic ultrasound May 10 2019: T3, N0 lesion. PET scan revealed disease confined to the esophagus. He underwent neoadjuvant chemoradiation. He received carboplatin and Taxol weekly. PET scan on 10/04/2019 showed: Mild improvement in uptake in the distal esophagus and fundus of the stomach. C6 cervical vertebra showed uptake question of a lesion. Stable small right lower lung nodule. No uptake. Bone scan from 10/22/19 revealed: Mild abnormalities in several ribs likely representing chronic rib fractures an ongoing bone remodeling. Mild on specific abnormalities is all related to arthritis. He saw Dr. Stuart. He did offer surgical resection however patient was concerned about the risks involved and so declined. EGD from 12/07/2019: EG junction was located at 39 cm. There were 2 areas of ulceration 1 measuring 10 mm and 1 measuring 5 mm at the EG junction. The previous tumor was not seen. No stricture. Pathology: GE junction mucosa with moderate acute and chronic inflammation, mucin and detached fragments of granulation tissue consistent with ulcer and esophagitis, negative for dysplasia or malignancy. CT scan from 01/22/20 revealed: Stable pulmonary nodules compared to 03/15 019. He had an upper endoscopy by Dr. Mancini in November of 2019 which revealed: The EG junction was located at 39 cm. There were 2 areas of ulceration, one measuring approximately 10 mm and one measuring approximately 5 mm at the EG junction. The previous tumor was not seen. The scope passed easily into the stomach. There was no stricture. Pathology: A. GE junction, biopsies: Gastroesophageal junctional mucosa with moderate acute and chronic inflammation, mucin and detached fragments of granulation tissue consistent with ulcer and esophagitis; negative for intestinal metaplasia; negative for dysplasia or malignancy. He has been feeling reasonably well. He denies any further dysphagia. However lately he has had a cough with sputum. His appetite is not that good and he has been losing weight. He had a CT scan of the chest on 10/08/2021 which revealed: Limited evaluation of pulmonary nodules due to artifact from respiratory motion. The 3 mm calcified right upper lobe nodule is stable. Other previously identified pulmonary nodules are not identified. Interval increase in wall thickening of the distal thoracic esophagus, GE junction and proximal stomach compared to January 2020 exam. I referred him to Dr. Mancini, who proceeded with an upper endoscopy, on 11/17 which revealed: On November 17, he underwent an upper endoscopy by Dr. Mancini which revealed: Esophagus: There was ulceration and friability with heaped up mucosa beginning at about 34 cm and extending to the EG junction at 36 cm and into the stomach for approximately 1 cm to 2 cm below this. Biopsies were obtained from the abnormal mucosa. The mucosa was ulcerated and friable with heaped up margins suspicious for recurrent tumor as opposed to just changes from his previous chemoradiation treatments. The scope was easily passed into the stomach with minimal narrowing at the EG junction. Pathology revealed: Superficial fragments of adenocarcinoma, poorly differentiated from EG junction mass, 36 cm, 34 cm. HER2/April: Negative. CEA level: 12.30. I shared the results with him and his daughters. I offered them systemic chemotherapy with FOLFOX/XELOX plus/minus, nivolumab based chemotherapy.(based upon the PDL1 status.) They are going to discuss it with the family and get back to me about their decision. In the meantime will have him consult with Dr. Stuart, to get his opinion and to see if a stent would be feasible. He saw him a couple of months ago. That time, he did not feel a stent was feasible. I proceeded with PDL1 testing. This came back positive for PDL1 of 25. There were given written information about the chemotherapy regimens. Details of the regimen including potential side effects of hypersensitivity reaction, skin rash, arthralgias myalgias, nausea vomiting diarrhea, peripheral neuropathy, renal toxicity, hepatotoxicity, risk of infection, need for antibiotic, blood transfusion as well as growth factors were addressed with him. He understood and was willing to proceed. He had a Port-A-Cath placed to facilitate the chemotherapy. He started treatment 1/24. He is tolerating it very well. His symptoms of dysphagia have resolved. He is able to eat well. Database: CBC from 02/15: WBC 4, HGB 11.3, HCT 36.1, PLT 176. 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 Calcium 9.2, albumin 3.5. LFTs: 0.7/180/34/29. CEA level: 5.80. CT scan of the chest and abdomen from 02/10, revealed: New right lower lobe nodules. Interval increase in wall thickening of the distal thoracic esophagus and GE junction. Wall thickening of the distal thoracic esophagus GE junction increased from previous exam. Thickened trabeculated bladder wall. Enlarged prostate gland. Abnormal soft tissue at the base of the bladder similar to previous exam probably related to lobulated contour of the prostate gland. New or increased gallbladder fundus wall thickening. Database: Labs from 03/29: CBC: WBC 9.9, HGB 11, HCT 34.8, MCV 89.2, PLT 95. CMP: Lytes WNL, glucose 154, Hermelindo 9.1, alb 3. LFTs: 0.7/243/31/21. CEA: 5.80. CBC from 05/03: WBC 7.6, HGB 10.9, HCT 34.1, PLT 92. CT chest from 04/16: Diffuse mural thickening involving mid and distal esophagus similar to previous study. There is mild wall thickening of the GE junction as well. There are several calcified and noncalcified nodules unchanged to the previous study. There are no new nodules. There is no abnormal mediastinal or axillary lymphadenopathy. He was in house between 06/19 to 06/20. With urinary retention. He saw Urology. Guerrero was placed. Due to ongoing neuropathy and treatment related side effects, he was treated with nivolumab with his last cycle, cycle 7 day 1. The treatment does appear to be working. I had a discussion with him and his daughter. He had a PET scan on 07/20, for restaging, it revealed: 1. No metabolically active disease is present. Note is made of persistent stable metabolically inactive nonspecific circumferential thickening within the distal thoracic esophagus extending into the GE junction region, may represent changes secondary to prior treatment, suboptimal distention /physiologic changes or combination thereof. Direct visualization may be considered if local disease recurrence is clinically suspected. 2. Stable sub-5 mm noncalcified right upper and right lower lung nodules, unchanged since 10/04/2019. 3. Stable sub-5 mm focal area of sclerosis involving L2 vertebral body, unchanged since 10/04/2019, without any concordant increased metabolic activity. 4. Diffuse atherosclerotic disease including coronary artery calcifications, without aneurysm, unchanged. 5. Interval placement of a Guerrero's catheter, appear in good position. In view of the toxicity and stable disease his regimen was switched over to maintenance nivolumab. He has been tolerating that well. He is clinically doing very well. His dysphagia has resolved after the stricture was dilated. PLAN: He may need to get dilated from time to time. He will continue on the nivolumab maintenance. He is here for cycle 23 of his regimen. Will proceed with imaging next month. He will return in 2 weeks for a follow-up visit. All his and his daughter's questions were answered to his satisfaction. Thank you, CC: Dr. Hooks. Dr. Stuart. Dr. Mancini. - Time Spent With Patient Time Spent with Patient (in minutes): 30
[2022-11-19 09:53] LABS: Alanine Aminotransferase 29 U/L (0-40); Albumin Level 4.2 g/dL (3.5-5.0); Alkaline Phosphatase 261 U/L (39-117); Anion Gap 15 (12-20); Aspartate Amino Transferase 37 U/L (5-37); Bilirubin Direct 0.4 mg/dL (0.0-0.5); Bilirubin Total 0.8 mg/dL (0.0-1.0); Blood Urea Nitrogen 17 mg/dL (9-16); Calcium 9.2 mg/dL (8.4-10.2); Carbon Dioxide 26 mmol/L (22-29); Chloride 104 mmol/L (96-108); Creatinine Clr Calc Pharmacy 73.3; Estimated Glomerular Filt Rate > 60; Glucose Random 202 mg/dL (60-115); Potassium 3.6 mmol/L (3.3-5.1); Sodium 141 mmol/L (135-145)
[2022-11-19] MEDS: Acetaminophen 325 MG TABLET 650 MG PO (10:09)
[2022-11-19] MEDS: Ondansetron ODT 8 MG TAB.RAPDIS TRANSLINGU (10:09)
[2022-11-19] MEDS: diphenhydrAMINE HCL 50 MG/ML VIAL 25 MG IVPUSH (10:09)
--- NOTE | 2022-11-19 10:10 | HO.HEMONCSCH ---
CT sent to [facility].
[2022-11-19] MEDS: Heparin Sodium,Porcine Flush 500 UNIT/5 ML SYRINGE IVFLUSH (10:14)
--- NOTE | 2022-11-19 15:22 | MHC.HEMONC ---
Here for C23 D1 Nivolumab. Port accessed with good blood return noted. Labs obtained. Daughter is in with pt, and she states he has been feeling good. States his appetite has been good. Pre-meds given as ordered. Treatment done and tolerated well. Port flushed with heparin 500units and de-accessed. Dr Anna in to see pt for follow up. Next treatment scheduled for 2 weeks. Departure packet given and pt departed unit.
[2022-11-30 09:10] VITALS: BP 135/81; PULSE 100; RESP 18; TEMP 36.3; O2SAT 100; BMI 21.9
[2022-11-30] MEDS: Acetaminophen 325 MG TABLET 650 MG PO (09:45)
[2022-11-30] MEDS: Ondansetron ODT 8 MG TAB.RAPDIS TRANSLINGU (09:45)
[2022-11-30] MEDS: diphenhydrAMINE HCL 50 MG/ML VIAL 25 MG IVPUSH (09:47)
--- NOTE | 2022-11-30 09:56 | MHC.HEMONC ---
Pt here for C24D1 Opdivo. Labs drawn at home this week reviewed-okay to receive treatment today. Pt states he continues with numbness and tingling in fingers and toes. Dr Anna into see pt. Port accessed with blood return noted. One suture noted above port-Dr Anna notified. Pre medicated with tylenol, zofran, benadryl. Opdivo given as ordered-tolerated well. Port flushed with heparin and de accessed. Next appointment scheduled. Discharge packet given. Instructed to call with any side effects or concerns
[2022-12-14 09:16] VITALS: BP 131/63; PULSE 110; RESP 18; TEMP 36.6; O2SAT 100; BMI 22.1
[2022-12-14] MEDS: Acetaminophen 325 MG TABLET 650 MG PO (09:40)
[2022-12-14] MEDS: Ondansetron ODT 8 MG TAB.RAPDIS TRANSLINGU (09:40)
[2022-12-14] MEDS: diphenhydrAMINE HCL 50 MG/ML VIAL 25 MG IVPUSH (09:41)
--- NOTE | 2022-12-14 11:30 | MHC.HEMONC ---
Pt here for C25 D1 Opdivo. Labs drawn yesterday at home-results reviewed-okay to receive treatment today. Pt states he continues with numbness and tingling in fingers, and fatigue. Port accessed with blood return noted. Pre medicated with tylenol, benadryl, zofran. Opdivo given as directed-tolerated well. Port flushed with heparin and de accessed. Next appointment scheduled. Discharge packet given. CT scheduled for 12/24/22-pt and daughter aware of appointment
[2022-12-28 09:21] VITALS: BP 141/68; PULSE 98; RESP 18; TEMP 36.7; O2SAT 97; BMI 22.4
[2022-12-28] MEDS: Acetaminophen 325 MG TABLET 650 MG PO (09:22)
[2022-12-28] MEDS: diphenhydrAMINE HCL 50 MG/ML VIAL 25 MG IVPUSH (09:22)
[2022-12-28] MEDS: Ondansetron ODT 8 MG TAB.RAPDIS TRANSLINGU (09:22)
[2023-01-11 09:00] VITALS: BP 143/70; PULSE 111; RESP 18; TEMP 37; O2SAT 100; BMI 22.0
[2023-01-11] MEDS: diphenhydrAMINE HCL 50 MG/ML VIAL 25 MG IVPUSH (09:01)
[2023-01-11] MEDS: Acetaminophen 325 MG TABLET 650 MG PO (09:01)
[2023-01-11] MEDS: Ondansetron ODT 8 MG TAB.RAPDIS TRANSLINGU (09:01)
--- NOTE | 2023-01-11 09:53 | P.PNHO-ONC_ITS ---
Medical Summary - Medical Summary Date of Service: 01/11/23 Chief complaint: Follow-up for: Carcinoma of the esophagus. 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 Endoscopic ultrasound on May 10: Ulcerated and friable partially obstructing mass extending from the GE junction through the cardia. Mass is circumferential hypoechoic fairly well circumscribed and rather homogeneous. Penetrates the muscularis propria. Making it a T3 lesion. Numerous small shotty lymph node largest being 7.5 mm not pathologic by size criteria. Tumor extends onto the gastric cardia. Celiac adenopathy could not be assessed. CURRENT THERAPY: Started radiation: July 09 2019. Completed low-dose carboplatin and Taxol weekly 08/13/2019. Now with disease recurrence. Started on systemic chemotherapy with FOLFOX, plus Nivolumab, 12/07. Completed 6 cycles. Now on single agent nivolumab, # 28 today. Interval History Interval history: This is a pleasant 72 year-old gentleman here for a follow-up visit. Lately, he has started noticing some dysphagia. This is to solids. He is able to tolerate oatmeal and soups etc. when he tries to swallow solids it gets stuck, and then he has to bring it up. They have called Dr. Mancini is office and are waiting for a call back. His energy level is reasonable. No headache no dizziness. He denies chest pain or trouble breathing. Sometimes he has a little bit of a cough at night, the cough syrup helps. He denies any abdominal pain. He gets occasional nausea. He takes Zofran wh ich helps. He gets occasional heartburn/ indigestion, for which he takes omeprazole. Bowels are working without any gross blood in it. He gets constipated. He takes MOM and fiber gummies. He still enjoys a good appetite. His weight is stable. Lately he has noticed seems sticky and gooey. He denies any dysuria or hematuria. He does complain of left flank pain. He is in good spirits. Rest of the review of systems is unremarkable. Recent history: He had complained about trouble swallowing. He actually underwent an upper endoscopy on 10/15/[address] Mancini. He had a stricture at 25 cm. That was dilated. After that the rest of the esophagus was clean. Fortunately, pathology came back negative. Since then he was able to swallow without difficulty. CT chest from 12/30/21: Wall thickening of the mid and distal thoracic esophagus and stranding of the surrounding fat. No discrete mass seen. Stable small calcified and noncalcified right pulmonary nodules. New scattered areas of groundglass attenuation in the left lung and denser atelectasis or small infiltrate at the left lung base probably representing an infectious or inflammatory process. Severe coronary artery calcification. He was in house between 06/19 to 06/20/22. Discharge summary: He was admitted for urinary retention and concern for severe leukocytosis. A Guerrero catheter was placed. He was started on finsteride and tamsulosin. He was discharged with Guerrero in place to follow up with Urology. Dr. Obrien recommended prostate medications. To leave the Guerrero in for 4 weeks. Leukocytosis was related to Neulasta. No evidence for infection or sepsis. He was hypotensive so losartan was held. Couple of weeks ago his chemotherapy was held, on account of side effects, neuropathy. He was having difficulty opening cans. He was given only nivolumab. He is feeling much better, with the break. His energy level is better. He had some difficulty swallowing with solids however, even the swallowing function has improved. He was seen by Dr. Bonilla on 07/09. His note: 71-year-old gentleman with multiple significant medical comorbidities here with his 2 daughters to discuss potential options in terms of nutrition. He does feel like he has lost 5-10 lb over the past several months and that he is actually able to get down soft foods but anything more solid seems to get stuck. Actually, the past few weeks he feels that this has improved slightly. We discussed the options of a feeding tube versus stent versus just continuing as he is. I did explain to them that an esophageal stent is only a temporary symptomatic reliever and that he still may be limited to soft foods with the risk of stent migration/pain/erosion. After our discussion they felt that there would be some but may be only minimal improvement with a stent in place and will continue to provide nutrition as it is. I did recommend a soft diet for him moving forward. Interim history:. He was in house between 01/17 and 01/19/22. Discharge summary: Presented with burning with urination that started a few days ago. He reported dysuria and frequency but denied hematuria as well as fever, chills, nausea or vomiting.? He is currently undergoing chemotherapy for esophageal [place] [facility] [place] White blood cell count was noted to be elevated at 46,000, lactic acid 2.7, tachycardia and tachypnea.? Urinalysis was positive for UTI, chest x- ray: Negative.? He was given a dose of Rocephin IV fluids in the ER.? Was admitted for further management and treatment of severe sepsis secondary to urinary tract infection. Severe sepsis secondary to urinary tract infection. Treated with IV Rocephin. Resolved Leukocytosis, tachycardia, tachypnea, lactic acidosis. Blood cultures up to 24 hours: Negative. Previous history: At his previous visit, in November,: He tells me that he has had some difficulty swallowing lately. It is mostly to solids. Liquids go down easily. It is a level 6 on 1-10 scale. Sometimes while eating he has a choking sensation. He is mostly taking soft diet including oatmeal, soups and rice. He tries to avoid chicken since it causes acid reflux. Patient was seen here back in mid . He complained that over the past couple of weeks he noted a cough. Would bring up clear sputum. He had been using DayQuil and NyQuil for symptoms. His appetite had declined. He denied obvious dysphagia or odynophagia. He had a CT scan of the chest on 10/08/2021 which revealed: Limited evaluation of pulmonary nodules due to artifact from respiratory motion. The 3 mm calcified right upper lobe nodule is stable. Other previously identified pulmonary nodules are not identified. Interval increase in wall thickening of the distal thoracic esophagus, GE junction and proximal stomach compared to January 2020 exam. On November 17, he underwent an upper endoscopy by Dr. Mancini which revealed: Esophagus: There was ulceration and friability with heaped up mucosa beginning at about 34 cm and extending to the EG junction at 36 cm and into the stomach for approximately 1 cm to 2 cm below this. Biopsies were obtained from the abnormal mucosa. The mucosa was ulcerated and friable with heaped up margins suspicious for recurrent tumor as opposed to just changes from his previous chemoradiation treatments. The scope was easily passed into the stomach with minimal narrowing at the EG junction. Pathology revealed: Superficial fragments of adenocarcinoma, poorly differentiated from EG junction mass, 36 cm, 34 cm. Review of Systems - Constitutional Reports system reviewed and no additional complaints, except as documented, Reports weakness, Denies fatigue, Denies weight loss - Eyes Reports system reviewed and no additional complaints, except as documented - ENT Reports system reviewed and no additional complaints, except as documented - Cardiovascular Reports system reviewed and no additional complaints, except as documented - Respiratory Reports no additional respiratory complaints - Gastrointestinal Reports system reviewed and no additional complaints, except as documented, Reports constipation, Reports difficulty swallowing - Genitourinary Genitourinary: Reports no additional male genitourinary complaints Comments: Sticky and gooey. - Musculoskeletal Reports system reviewed and no additional complaints, except as documented - Integumentary/Breasts Skin/Breast: Reports no additional skin complaints - Neurologic Reports system reviewed and no additional complaints, except as documented, Denies behavioral changes, Denies weakness - Psychiatric Reports system reviewed and no additional complaints, except as documented - Endocrine Reports no additional endocrine complaints - Hematologic/Lymphatic Reports system reviewed and no additional complaints, except as documented - Allergic/Immunologic Reports system reviewed and no additional complaints, except as documented [facility] Medical History: Medical History (Last Updated 10/15/22 @ 09:26 by Patricia Khan RN) Adenocarcinoma of cardio-esophageal junction Onset Date: ~2018 Anxiety Benign essential hypertension Constipation Depression Diabetes type 2, uncontrolled Diabetic nephropathy associated with type 2 diabetes mellitus Diabetic neuropathy associated with type 2 diabetes mellitus HLD (hyperlipidemia) 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 Surgical History: Surgical History (Last Reviewed 09/15/22 @ 03:23 by Norm Hooks MD) History of atherectomy Onset Date: ~2019 History of esophagogastroduodenoscopy History of left below knee amputation Onset Date: ~2019 Social History: Social History (Last Reviewed 09/15/22 @ 03:23 by Norm Hooks MD) Living Situation History: Household Members: Family Housing: House Tobacco History: Patient Tobacco Use Status: Never used Tobacco e-Cigarette/Vaping Use: Never Used Second Hand Smoke Exposure: Yes Advance Directives: Advance Directives Date on File: 08/19/20 Nutrition Assessment: Patient : No Occupation Assessmet: service: No Current occupational status: retired Current occupational status: disabled Oncology Screenings - ECOG Performance Status ECOG Performance Status: 2 Home Medications and Allergies Current Medications: Current Medications Acetaminophen (Acetaminophen 325 Mg Tablet) 650 mg PO ONCE COURTNEY Stop: 01/11/23 23:59 Last Admin: 01/11/23 09:01 Dose: 650 mg Heparin Sodium (Porcine) 500 (unit/ Sodium Chloride 5 ml) 0 unit IVFLUSH ONCE ONE Stop: 01/11/23 09:53 Diphenhydramine HCl (Diphenhydramine Hcl 50 Mg/Ml Vial) 25 mg IVPUSH ONCE COURTNEY Stop: 01/11/23 23:59 Last Admin: 01/11/23 09:01 Dose: 25 mg Nivolumab 240 mg/ Sodium (Chloride) 124 mls @ 248 mls/hr IV ONCE COURTNEY Stop: 01/11/23 23:59 Last Admin: 01/11/23 09:47 Dose: 248 mls/hr Ondansetron HCl (Ondansetron Odt 8 Mg Tab.Rapdis) 8 mg TRANSLINGU ONCE COURTNEY Stop: 01/11/23 23:59 Last Admin: 01/11/23 09:01 Dose: 8 mg Home Medications Medication Instructions Recorded Confirmed Type aluminum-mag hydroxide-simethicone 80 ml PO USEASDIRECTD 06/19/22 11/30/22 History 400 mg-400 mg-40 mg/5 mL oral susp (Antacid Maximum Strength) blood sugar diagnostic (FreeStyle 06/19/22 11/30/22 History Lite Strips) cholecalciferol (vitamin D3) 25 1 cap PO QAM 06/19/22 11/30/22 History mcg (1,000 unit) capsule (Vitamin D3) diphenhydramine HCl 12.5 mg/5 mL See Rx Instructions .Route .COMPLEX 06/19/22 11/30/22 History oral liquid (Allergy Relief (diphenhydramine)) ferrous sulfate 325 mg (65 mg 1 tab PO QAM 06/19/22 11/30/22 History iron) tablet (FeroSul) glucagon 0.5 mg/0.1 mL 0.1 ml subcut DAILY diabetes 06/19/22 11/30/22 History subcutaneous auto-injector (Gvoke mellitus HypoPen 2-Pack) metoprolol succinate 25 mg 0.5 tab PO QPM 06/19/22 11/30/22 History tablet,extended release 24 hr pen needle, diabetic 32 gauge x 06/19/22 11/30/22 History 5/32 (Pentips) duloxetine 30 mg capsule,delayed 30 mg PO 09/08/22 09/15/22 History release losartan 100 mg tablet 100 mg PO DAILY 09/08/22 11/30/22 History metformin 500 mg tablet,extended 1,000 mg PO BID 09/08/22 11/30/22 History release 24 hr Allergies Allergy/AdvReac Type Severity Reaction Status Date / Time No Known Allergies Allergy Verified 11/30/22 09:22 Exam Vital signs: Vital Signs Temp 98.6 F 01/11/23 09:00 Pulse 111 H 01/11/23 09:00 Resp 18 01/11/23 09:00 BP 143/70 H 01/11/23 09:00 Pulse Ox 100 01/11/23 09:00 O2 Del Method 01/11/23 09:00 Intake & Output 01/10/23 01/11/23 01/11/23 18:59 06:59 18:59 Other: Weight 65.7 kg Te[place]ro Weight in Grams [id number] Weight 65.7 kg BMI result Body Mass Index 22.0 - Constitutional Present: no acute distress - Routine HEENT Exam Head: Present: normal inspection Eye: Present: normal appearance ENT: Present: mucous membranes moist - Routine Neck Exam Present: full ROM - Routine Respiratory Exam Present: CTAB - Routine Cardiovascular Exam Cardiovascular: Present: RRR, S1, S2 - Routine Abdominal Exam Present: soft, nontender - Routine Extremities Exam Present: nontender - Routine Back/Spine/Pelvis Exam Back/Spine: Present: full ROM - Routine Skin Exam Present: intact - Routine Neurological Exam Present: alert, oriented X3 - Routine Psychiatric Exam Present: normal affect Data - Labs CBC & Chem 7: 11/19/22 09:20 11/19/22 09:20 Assessment and Plan Patient Active problem list reviewed?: Yes (1) Carcinoma of thoracic esophagus Status: Inactive Assessment and plan: This is a pleasant 71 year-old gentleman diagnosed with Carcinoma of the Esophagus, back in summer. Upper endoscopy revealed a 4 cm mass extending from the EG junction to 1-2 cm below the EG junction. Pathology: Superficial fragments of adenocarcinoma, moderately differentiated, arising in a background of Mcintyre's esophagus. HER2: 0. Endoscopic ultrasound May 10 2019: T3, N0 lesion. PET scan revealed disease confined to the esophagus. He underwent neoadjuvant chemoradiation. He received carboplatin and Taxol weekly. PET scan on 10/04/2019 showed: Mild improvement in uptake in the distal esophagus and fundus of the stomach. C6 cervical vertebra showed uptake question of a lesion. Stable small right lower lung nodule. No uptake. Bone scan from 10/22/19 revealed: Mild abnormalities in several ribs likely representing chronic rib fractures an ongoing bone remodeling. Mild on specific abnormalities is all related to arthritis. He saw Dr. Stuart. He did offer surgical resection however patient was concerned about the risks involved and so declined. EGD from 12/07/2019: EG junction was located at 39 cm. There were 2 areas of ulceration 1 measuring 10 mm and 1 measuring 5 mm at the EG junction. The previous tumor was not seen. No stricture. Pathology: GE junction mucosa with moderate acute and chronic inflammation, mucin and detached fragments of granulation tissue consistent with ulcer and esophagitis, negative for dysplasia or malignancy. CT scan from 01/22/20 revealed: Stable pulmonary nodules compared to 03/15 019. He had an upper endoscopy by Dr. Mancini in November of 2019 which revealed: The EG junction was located at 39 cm. There were 2 areas of ulceration, one measuring approximately 10 mm and one measuring approximately 5 mm at the EG junction. The previous tumor was not seen. The scope passed easily into the stomach. There was no stricture. Pathology: A. GE junction, biopsies: Gastroesophageal junctional mucosa with moderate acute and chronic inflammation, mucin and detached fragments of granulation tissue consistent with ulcer and esophagitis; negative for intestinal metaplasia; negative for dysplasia or malignancy. He has been feeling reasonably well. He denies any further dysphagia. However lately he has had a cough with sputum. His appetite is not that good and he has been losing weight. He had a CT scan of the chest on 10/08/2021 which revealed: Limited evaluation of pulmonary nodules due to artifact from respiratory motion. The 3 mm calcified right upper lobe nodule is stable. Other previously identified pulmonary nodules are not identified. Interval increase in wall thickening of the distal thoracic esophagus, GE junction and proximal stomach compared to January 2020 exam. I referred him to Dr. Mancini, who proceeded with an upper endoscopy, on 11/17 which revealed: On Mayra 4th, he underwent an upper endoscopy by Dr. Mancini which revealed: Esophagus: There was ulceration and friability with heaped up mucosa beginning at about 34 cm and extending to the EG junction at 36 cm and into the stomach for approximately 1 cm to 2 cm below this. Biopsies were obtained from the abnormal mucosa. The mucosa was ulcerated and friable with heaped up margins suspicious for recurrent tumor as opposed to just changes from his previous chemoradiation treatments. The scope was easily passed into the stomach with minimal narrowing at the EG junction. Pathology revealed: Superficial fragments of adenocarcinoma, poorly differentiated from EG junction mass, 36 cm, 34 cm. HER2/April: Negative. CEA level: 12.30. I shared the results with him and his daughters. I offered them systemic chemotherapy with FOLFOX/XELOX plus/minus, nivolumab based chemotherapy.(based upon the PDL1 status.) They are going to discuss it with the family and get back to me about their decision. In the meantime will have him consult with Dr. Stuart, to get his opinion and to see if a stent would be feasible. He saw him a couple of months ago. That time, he did not feel a stent was feasible. I proceeded with PDL1 testing. This came back positive for PDL1 of 25. There were given written information about the chemotherapy regimens. Details of the regimen including potential side effects of hypersensitivity reaction, skin rash, arthralgias myalgias, nausea vomiting diarrhea, peripheral neuropathy, renal toxicity, hepatotoxicity, risk of infection, need for antibiotic, blood transfusion as well as growth factors were addressed with him. He understood and was willing to proceed. He had a Port-A-Cath placed to facilitate the chemotherapy. He started treatment 12/07. He is tolerating it very well. His symptoms of dysphagia have resolved. He is able to eat well. Database: CBC from 02/15: WBC 4, HGB 11.3, HCT 36.1, PLT 176. CMP from 02/15: Lytes WNL, BUN 18, CARDIAC REHABILITATION PROGRAM DIRECTOR 0.83, glucose 131. Calcium 9.2, albumin 3.5. LFTs: 0.7/180/34/29. CEA level: 5.80. CT scan of the chest and abdomen from 02/10, revealed: New right lower lobe nodules. Interval increase in wall thickening of the distal thoracic esophagus and GE junction. Wall thickening of the distal thoracic esophagus GE junction increased from previous exam. Thickened trabeculated bladder wall. Enlarged prostate gland. Abnormal soft tissue at the base of the bladder similar to previous exam probably related to lobulated contour of the prostate gland. New or increased gallbladder fundus wall thickening. Database: Labs from 03/29: CBC: WBC 9.9, HGB 11, HCT 34.8, MCV 89.2, PLT 95. CMP: Lytes WNL, glucose 154, Hermelindo 9.1, alb 3. LFTs: 0.7/243/. CEA: 5.80. CBC from 05/03: WBC 7.6, HGB 10.9, HCT 34.1, PLT 92. CT chest from 04/16: Diffuse mural thickening involving mid and distal esophagus similar to previous study. There is mild wall thickening of the GE junction as well. There are several calcified and noncalcified nodules unchanged to the previous study. There are no new nodules. There is no abnormal mediastinal or axillary lymphadenopathy. He was in house between 06/19 to 06/20. With urinary retention. He saw Urology. Guerrero was placed. Due to ongoing neuropathy and treatment related side effects, he was treated with nivolumab with his last cycle, cycle 7 day 1. The treatment does appear to be working. I had a discussion with him and his daughter. He had a PET scan on 07/20, for restaging, it revealed: 1. No metabolically active disease is present. Note is made of persistent stable metabolically inactive nonspecific circumferential thickening within the distal thoracic esophagus extending into the GE junction region, may represent changes secondary to prior treatment, suboptimal distention /physiologic changes or combination thereof. Direct visualization may be considered if local disease recurrence is clinically suspected. 2. Stable sub-5 mm noncalcified right upper and right lower lung nodules, unchanged since 10/04/2019. 3. Stable sub-5 mm focal area of sclerosis involving L2 vertebral body, unchanged since 10/04/2019, without any concordant increased metabolic activity. 4. Diffuse atherosclerotic disease including coronary artery calcifications, without aneurysm, unchanged. 5. Interval placement of a Guerrero's catheter, appear in good position. CT chest from 12/30/22: Wall thickening of the mid and distal thoracic esophagus and stranding of the surrounding fat. No discrete mass seen. Stable small calcified and noncalcified right pulmonary nodules. New scattered areas of groundglass attenuation in the left lung and denser atelectasis or small infiltrate at the left lung base probably representing an infectious or inflammatory process. Severe coronary artery calcification. In view of the toxicity and stable disease his regimen was switched over to maintenance nivolumab. He has been tolerating that well. He is clinically doing quite well. However, his dysphagia had resolved after the stricture was dilated. It has since returned. He has had some urine abnormalities. His U/A is positive. PLAN: I called Dr. Mancini's office, they are in the process of setting him up for an EGD. He may need to get dilated again. Would also like him to assess the status of his tumor, given the imaging findings. Chest Cat scan also raised concern for a pulmonary infiltrate. Will start him on Augmentin to cover both lung and UTI, pending urine culture results. He will continue on the nivolumab maintenance. He is here for cycle 28 of his regimen. Will proceed with his next set of imaging in February. He will return in 2 weeks for his next treatment and in a month for a follow-up visit. All his and his daughter's questions were answered to his satisfaction. Thank you, CC: Dr. Hooks. Dr. Stuart. Dr. Mancini. - Time Spent With Patient Time Spent with Patient (in minutes): 30
[2023-01-11 10:40] LABS: Appearance Urine Cloudy; Color Urine Yellow; Glucose Urine UA >=1000 mg/dL (Negative); Leukocyte Esterase Urine Large (3+) (Negative); Nitrite Urine Positive (Negative); PH 6.5 (5.0-9.0); Specific Gravity - Urine 1.015 (1.005-1.025); UMIC TRIGGER UACC YES; Urine Blood Trace (Negative); Urine Ketones Negative (Negative); Urine Protein 30 (1+) mg/dL (Neg-Trace)
[2023-01-11 10:52] LABS: Bacteria Urine 4+ (None Seen); RBC Urine 0-2 /HPF (0-2); Squamous Epithelial Cell Urine 0-2 /HPF (0-2); UACC Culture Trigger YES; WBC Urine >50 /HPF (0-5)
--- NOTE | 2023-01-11 10:57 | MHC.HEMONC ---
pt report difficultly swallowing awaiting for call back from dr pablo. pt also report cloudy urine, sample received. dr rayo plans on sending po abx for pne and uti, pending results
--- NOTE | 2023-01-12 12:02 | MHC.HEMONC ---
Spoke with pts daughter Elizabeth to let her know that Dr Anna sent prescription for Augmentin for uti/pneumonia. Also let her know Dr Mancini's office will be scheduling Yunior for EGD.
--- NOTE | 2023-01-20 12:07 | MHC.HEMONC ---
Dr. Anna would like patient scheduled to see Dr. Stuart for recent esophageal biopsy results. Message left with Aracely Molina via message task. Awaiting callback.
--- NOTE | 2023-01-24 16:26 | MHC.HEMONC ---
Per Dr Anna pt will not be getting treated tomorrow 01/25/23. Family notified by Kendra Encinas RN
--- NOTE | 2023-01-28 16:17 | MHC.HEMONC ---
Triage call: Daughter Elizabeth called and requested update from Dr. Anna on plan of care. Dr Anna spoke to daughter over phone. Elizabeth will be calling Dr. Mario's office to make appt to discuss other options. After appt is completed she will call our office to arrange a follow up and possible chemotherapy.
--- NOTE | 2023-01-31 11:35 | MHC.HEMONC ---
This nurse took t/c from pt's dtr, Elizabeth, she said that Home Draw had been to draw pt's labs at home today, wanted to know if Dr. Anna was planning for pt to be treated tomorrow. Elizabeth also informed this nurse that pt will have appt w/ Dr. Stuart on 02/11/23. Nurse checked w/ tx team and updated Dr. Anna, Dr. Anna replied that, w/ so many challenges for pt at this time, and w/ discussions w/ surgeons, pt should not be scheduled for tx, but should instead come in for Onc f/u to discuss treatment options for the future. Nurse booked pt Onc f/u appt for next Tue, 02/08 at 11:20.
[2023-02-08 11:17] VITALS: BP 142/77; PULSE 112; RESP 18; TEMP 36.6; O2SAT 100; BMI 22.7
--- NOTE | 2023-02-08 11:17 | PM.HEMONCPN ---
Medical Summary - Medical Summary Date of Service: 02/08/23 Chief complaint: Follow-up for: Carcinoma of the esophagus. 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 Endoscopic ultrasound on May 10: Ulcerated and friable partially obstructing mass extending from the GE junction through the cardia. Mass is circumferential hypoechoic fairly well circumscribed and rather homogeneous. Penetrates the muscularis propria. Making it a T3 lesion. Numerous small shotty lymph node largest being 7.5 mm not pathologic by size criteria. Tumor extends onto the gastric cardia. Celiac adenopathy could not be assessed. CURRENT THERAPY: Started radiation: July 09 2019. Completed low-dose carboplatin and Taxol weekly 08/13/2019. Now with disease recurrence. Started on systemic chemotherapy with FOLFOX, plus Nivolumab, 12/07. Completed 6 cycles. Single agent nivolumab, # 28 on 01/11. Interval History Interval history: This is a pleasant 72 year-old gentleman here for a follow-up visit. Lately, he has started noticing some dysphagia, mostly to solids. He underwent an upper endoscopy on 01/[address] Mancini. This revealed: Dr. Mancini proceeded with an EGD on 01/18: Distal esophageal mass lesion consistent with recurrence of adenocarcinoma. Biopsy results: Adenocarcinoma with focal signet ring cells. Since then he has felt a lot better. His swallowing function improved and he is able to eat everything without difficulty. Actually gained 8 lb over the past month. His energy level is reasonable. No headache no dizziness. He denies chest pain or trouble breathing. Sometimes he has a little bit of a cough at night, the cough syrup helps. He denies any abdominal pain. He gets occasional nausea. He takes Zofran which helps. He gets occasional heartburn/ indigestion, for which he takes omeprazole. Bowels are working without any gross blood in it. He gets constipated. He takes fiber gummies and MOM. He still enjoys a good appetite. His weight is stable. He denies any dysuria or hematuria. He does complain of left flank pain. He is in good spirits. Rest of the review of systems is unremarkable. Recent history: He had complained about trouble swallowing. He actually underwent an upper endoscopy on 10/15/[address] Mancini. He had a stricture at 25 cm. That was dilated. After that the rest of the esophagus was clean. Fortunately, pathology came back negative. Since then he was able to swallow without difficulty. CT chest from 12/30/21: Wall thickening of the mid and distal thoracic esophagus and stranding of the surrounding fat. No discrete mass seen. Stable small calcified and noncalcified right pulmonary nodules. New scattered areas of groundglass attenuation in the left lung and denser atelectasis or small infiltrate at the left lung base probably representing an infectious or inflammatory process. Severe coronary artery calcification. He was in house between 06/19 to 06/20/22. Discharge summary: He was admitted for urinary retention and concern for severe leukocytosis. A Guerrero catheter was placed. He was started on finsteride and tamsulosin. He was discharged with Guerrero in place to follow up with Urology. Dr. Obrien recommended prostate medications. To leave the Guerrero in for 4 weeks. Leukocytosis was related to Neulasta. No evidence for infection or sepsis. He was hypotensive so losartan was held. Couple of weeks ago his chemotherapy was held, on account of side effects, neuropathy. He was having difficulty opening cans. He was given only nivolumab. He is feeling much better, with the break. His energy level is better. He had some difficulty swallowing with solids however, even the swallowing function has improved. He was seen by Dr. Bonilla on 07/09. His note: 71-year-old gentleman with multiple significant medical comorbidities here with his 2 daughters to discuss potential options in terms of nutrition. He does feel like he has lost 5-10 lb over the past several months and that he is actually able to get down soft foods but anything more solid seems to get stuck. Actually, the past few weeks he feels that this has improved slightly. We discussed the options of a feeding tube versus stent versus just continuing as he is. I did explain to them that an esophageal stent is only a temporary symptomatic reliever and that he still may be limited to soft foods with the risk of stent migration/pain/erosion. After our discussion they felt that there would be some but may be only minimal improvement with a stent in place and will continue to provide nutrition as it is. I did recommend a soft diet for him moving forward. Interim history:. He was in house between 01/17 and 01/19/22. Discharge summary: Presented with burning with urination that started a few days ago. He reported dysuria and frequency but denied hematuria as well as fever, chills, nausea or vomiting.? He is currently undergoing [place] [facility] [place] White blood cell count was noted to be elevated at 46,000, lactic acid 2.7, tachycardia and tachypnea.? Urinalysis was positive for UTI, chest x-ray: Negative.? He was given a dose of Rocephin IV fluids in the ER.? Was admitted for further management and treatment of severe sepsis secondary to urinary tract infection. Severe sepsis secondary to urinary tract infection. Treated with IV Rocephin. Resolved Leukocytosis, tachycardia, tachypnea, lactic acidosis. Blood cultures up to 24 hours: Negative. Previous history: At his previous visit, in November,: He tells me that he has had some difficulty swallowing lately. It is mostly to solids. Liquids go down easily. It is a level 6 on 1-10 scale. Sometimes while eating he has a choking sensation. He is mostly taking soft diet including oatmeal, soups and rice. He tries to avoid chicken since it causes acid reflux. Patient was seen here back in mid . He complained that over the past couple of weeks he noted a cough. Would bring up clear sputum. He had been using DayQuil and NyQuil for symptoms. His appetite had declined. He denied obvious dysphagia or odynophagia. He had a CT scan of the chest on 10/08/2021 which revealed: Limited evaluation of pulmonary nodules due to artifact from respiratory motion. The 3 mm calcified right upper lobe nodule is stable. Other previously identified pulmonary nodules are not identified. Interval increase in wall thickening of the distal thoracic esophagus, GE junction and proximal stomach compared to January 2020 exam. On November 17, he underwent an upper endoscopy by Dr. Mancini which revealed: Esophagus: There was ulceration and friability with heaped up mucosa beginning at about 34 cm and extending to the EG junction at 36 cm and into the stomach for approximately 1 cm to 2 cm below this. Biopsies were obtained from the abnormal mucosa. The mucosa was ulcerated and friable with heaped up margins suspicious for recurrent tumor as opposed to just changes from his previous chemoradiation treatments. The scope was easily passed into the stomach with minimal narrowing at the EG junction. Pathology revealed: Superficial fragments of adenocarcinoma, poorly differentiated from EG junction mass, 36 cm, 34 cm. Review of Systems - Constitutional Reports system reviewed and no additional complaints, except as documented, Reports weight gain, Denies fatigue, Denies fever(s), Denies weakness, Denies weight loss - Eyes Reports system reviewed and no additional complaints, except as documented - ENT Reports system reviewed and no additional complaints, except as documented - Cardiovascular Reports system reviewed and no additional complaints, except as documented - Respiratory Reports no additional respiratory complaints - Gastrointestinal Reports system reviewed and no additional complaints, except as documented - Genitourinary Genitourinary: Reports no additional male genitourinary complaints - Musculoskeletal Reports system reviewed and no additional complaints, except as documented - Integumentary/Breasts Skin/Breast: Reports no additional skin complaints - Neurologic Reports system reviewed and no additional complaints, except as documented, Reports weakness, Denies behavioral changes - Psychiatric Reports system reviewed and no additional complaints, except as documented - Endocrine Reports no additional endocrine complaints - Hematologic/Lymphatic Reports system reviewed and no additional complaints, except as documented - Allergic/Immunologic Reports system reviewed and no additional complaints, except as documented PMFSH Medical History: Medical History (Last Reviewed 02/11/23 @ 11:41 by Bee Stuart MD) Adenocarcinoma of cardio-esophageal junction Onset Date: ~2018 Anxiety Benign essential hypertension Constipation Depression Diabetes type 2, uncontrolled Diabetic nephropathy associated with type 2 diabetes mellitus Diabetic neuropathy associated with type 2 diabetes mellitus HLD (hyperlipidemia) Keratotic lesion senior living (current) use of insulin Port-A-Cath in place Suprapubic catheter Vitamin D deficiency Functional capacity: wheelchair bound Patient : No Family History: Family History (Last Reviewed 02/11/23 @ 11:41 by Bee Stuart MD) Father Diabetes Hypertension Mother No problems noted. Surgical History: Surgical History (Last Reviewed 02/11/23 @ 11:41 by Bee Stuart MD) History of atherectomy Onset Date: ~2019 History of esophagogastroduodenoscopy History of left below knee amputation Onset Date: ~2019 Social History: Social History (Last Reviewed 02/11/23 @ 11:41 by Bee Stuart MD) Living Situation History: Household Members: Family Housing: House Tobacco History: Patient Tobacco Use Status: Never used Tobacco e-Cigarette/Vaping Use: Never Used Second Hand Smoke Exposure: Yes Advance Directives: Advance Directives Date on File: 08/19/20 Occupation Assessmet: service: No Current occupational status: retired Current occupational status: disabled Oncology Screenings - ECOG Performance Status ECOG Performance Status: 2 Home Medications and Allergies Home Medications Medication Instructions Recorded Confirmed Type aluminum-mag hydroxide-simethicone 80 ml PO USEASDIRECTD 06/19/22 02/11/23 History 400 mg-400 mg-40 mg/5 mL oral susp (Antacid Maximum Strength) blood sugar diagnostic (FreeStyle 06/19/22 02/11/23 History Lite Strips) cholecalciferol (vitamin D3) 25 1 cap PO QAM 06/19/22 02/11/23 History mcg (1,000 unit) capsule (Vitamin D3) diphenhydramine HCl 12.5 mg/5 mL See Rx Instructions .Route .COMPLEX 06/19/22 02/11/23 History oral liquid (Allergy Relief (diphenhydramine)) ferrous sulfate 325 mg (65 mg 1 tab PO QAM 06/19/22 02/11/23 History iron) tablet (FeroSul) glucagon 0.5 mg/0.1 mL 0.1 ml subcut DAILY diabetes 06/19/22 02/11/23 History subcutaneous auto-injector (Gvoke mellitus HypoPen 2-Pack) metoprolol succinate 25 mg 0.5 tab PO QPM 06/19/22 02/11/23 History tablet,extended release 24 hr pen needle, diabetic 32 gauge x 06/19/22 02/11/23 History 5/32 (Pentips) duloxetine 30 mg capsule,delayed 30 mg PO 09/08/22 02/11/23 History release losartan 100 mg tablet 100 mg PO DAILY 09/08/22 02/11/23 History metformin 500 mg tablet,extended 1,000 mg PO BID 09/08/22 02/11/23 History release 24 hr Allergies Allergy/AdvReac Type Severity Reaction Status Date / Time No Known Allergies Allergy Verified 02/11/23 10:24 Exam Vital signs: Vital Signs Temp 98.6 F 01/11/23 09:00 Pulse 111 H 01/11/23 09:00 Resp 18 01/11/23 09:00 BP 143/70 H 01/11/23 09:00 Pulse Ox 100 01/11/23 09:00 O2 Del Method Room Air 01/11/23 09:00 Weight 65.7 kg BMI result Body Mass Index 22.0 - Constitutional Present: no acute distress - Routine HEENT Exam Head: Present: normal inspection Eye: Present: normal appearance ENT: Present: mucous membranes moist - Routine Neck Exam Present: full ROM - Routine Respiratory Exam Present: CTAB - Routine Cardiovascular Exam Cardiovascular: Present: RRR, S1, S2 - Routine Abdominal Exam Present: soft, nontender - Routine Extremities Exam Present: nontender - Routine Back/Spine/Pelvis Exam Back/Spine: Present: full ROM - Routine Skin Exam Present: intact - Routine Neurological Exam Present: alert, oriented X3 - Routine Psychiatric Exam Present: normal affect Data - Labs CBC & Chem 7: 02/08/23 11:29 02/08/23 11:29 Assessment and Plan Patient Active problem list reviewed?: Yes (1) Carcinoma of thoracic esophagus Status: Inactive Assessment and plan: This is a pleasant 71 year-old gentleman diagnosed with Carcinoma of the Esophagus, back in summer. Upper endoscopy revealed a 4 cm mass extending from the EG junction to 1-2 cm below the EG junction. Pathology: Superficial fragments of adenocarcinoma, moderately differentiated, arising in a background of Mcintyre's esophagus. HER2: 0. Endoscopic ultrasound May 10 2019: T3, N0 lesion. PET scan revealed disease confined to the esophagus. He underwent neoadjuvant chemoradiation. He received carboplatin and Taxol weekly. PET scan on 10/04/2019 showed: Mild improvement in uptake in the distal esophagus and fundus of the stomach. C6 cervical vertebra showed uptake question of a lesion. Stable small right lower lung nodule. No uptake. Bone scan from 10/22/19 revealed: Mild abnormalities in several ribs likely representing chronic rib fractures an ongoing bone remodeling. Mild on specific abnormalities is all related to arthritis. He saw Dr. Stuart. He did offer surgical resection however patient was concerned about the risks involved and so declined. EGD from 12/07/2019: EG junction was located at 39 cm. There were 2 areas of ulceration 1 measuring 10 mm and 1 measuring 5 mm at the EG junction. The previous tumor was not seen. No stricture. Pathology: GE junction mucosa with moderate acute and chronic inflammation, mucin and detached fragments of granulation tissue consistent with ulcer and esophagitis, negative for dysplasia or malignancy. CT scan from 01/22/20 revealed: Stable pulmonary nodules compared to 03/15 019. He had an upper endoscopy by Dr. Mancini in November of 2019 which revealed: The EG junction was located at 39 cm. There were 2 areas of ulceration, one measuring approximately 10 mm and one measuring approximately 5 mm at the EG junction. The previous tumor was not seen. The scope passed easily into the stomach. There was no stricture. Pathology: A. GE junction, biopsies: Gastroesophageal junctional mucosa with moderate acute and chronic inflammation, mucin and detached fragments of granulation tissue consistent with ulcer and esophagitis; negative for intestinal metaplasia; negative for dysplasia or malignancy. He has been feeling reasonably well. He denies any further dysphagia. However lately he has had a cough with sputum. His appetite is not that good and he has been losing weight. He had a CT scan of the chest on 10/08/2021 which revealed: Limited evaluation of pulmonary nodules due to artifact from respiratory motion. The 3 mm calcified right upper lobe nodule is stable. Other previously identified pulmonary nodules are not identified. Interval increase in wall thickening of the distal thoracic esophagus, GE junction and proximal stomach compared to January 2020 exam. I referred him to Dr. Mancini, who proceeded with an upper endoscopy, on 11/17 which revealed: On November 17, he underwent an upper endoscopy by Dr. Mancini which revealed: Esophagus: There was ulceration and friability with heaped up mucosa beginning at about 34 cm and extending to the EG junction at 36 cm and into the stomach for approximately 1 cm to 2 cm below this. Biopsies were obtained from the abnormal mucosa. The mucosa was ulcerated and friable with heaped up margins suspicious for recurrent tumor as opposed to just changes from his previous chemoradiation treatments. The scope was easily passed into the stomach with minimal narrowing at the EG junction. Pathology revealed: Superficial fragments of adenocarcinoma, poorly differentiated from EG junction mass, 36 cm, 34 cm. HER2/April: Negative. CEA level: 12.30. I shared the results with him and his daughters. I offered them systemic chemotherapy with FOLFOX/XELOX plus/minus, nivolumab based chemotherapy.(based upon the PDL1 status.) They are going to discuss it with the family and get back to me about their decision. In the meantime will have him consult with Dr. Stuart, to get his opinion and to see if a stent would be feasible. He saw him a couple of months ago. That time, he did not feel a stent was feasible. I proceeded with PDL1 testing. This came back positive for PDL1 of 25. There were given written information about the chemotherapy regimens. Details of the regimen including potential side effects of hypersensitivity reaction, skin rash, arthralgias myalgias, nausea vomiting diarrhea, peripheral neuropathy, renal toxicity, hepatotoxicity, risk of infection, need for antibiotic, blood transfusion as well as growth factors were addressed with him. He understood and was willing to proceed. He had a Port-A-Cath placed to facilitate the chemotherapy. He started treatment 12/07. He is tolerating it very well. His symptoms of dysphagia have resolved. He is able to eat well. Database: CBC from 02/15: WBC 4, HGB 11.3, HCT 36.1, PLT 176. CMP from 02/15: Lytes WNL, BUN 18, RETORT OPERATOR 0.83, glucose 131. Calcium 9.2, albumin 3.5. LFTs: 0.7/180/34/29. CEA level: 5.80. CT scan of the chest and abdomen from 02/10, revealed: New right lower lobe nodules. Interval increase in wall thickening of the distal thoracic esophagus and GE junction. Wall thickening of the distal thoracic esophagus GE junction increased from previous exam. Thickened trabeculated bladder wall. Enlarged prostate gland. Abnormal soft tissue at the base of the bladder similar to previous exam probably related to lobulated contour of the prostate gland. New or increased gallbladder fundus wall thickening. Database: Labs from 03/29: CBC: WBC 9.9, HGB 11, HCT 34.8, MCV 89.2, PLT 95. CMP: Lytes WNL, glucose 154, Hermelindo 9.1, alb 3. LFTs: 0.7/243/31/21. CEA: 5.80. CBC from 05/03: WBC 7.6, HGB 10.9, HCT 34.1, PLT 92. CT chest from 04/16: Diffuse mural thickening involving mid and distal esophagus similar to previous study. There is mild wall thickening of the GE junction as well. There are several calcified and noncalcified nodules unchanged to the previous study. There are no new nodules. There is no abnormal mediastinal or axillary lymphadenopathy. He was in house between 06/19 to 06/20. With urinary retention. He saw Urology. Guerrero was placed. Due to ongoing neuropathy and treatment related side effects, he was treated with nivolumab with his last cycle, cycle 7 day 1. The treatment does appear to be working. I had a discussion with him and his daughter. He had a PET scan on 07/20, for restaging, it revealed: 1. No metabolically active disease is present. Note is made of persistent stable metabolically inactive nonspecific circumferential thickening within the distal thoracic esophagus extending into the GE junction region, may represent changes secondary to prior treatment, suboptimal distention /physiologic changes or combination thereof. Direct visualization may be considered if local disease recurrence is clinically suspected. 2. Stable sub-5 mm noncalcified right upper and right lower lung nodules, unchanged since 10/04/2019. 3. Stable sub-5 mm focal area of sclerosis involving L2 vertebral body, unchanged since 10/04/2019, without any concordant increased metabolic activity. 4. Diffuse atherosclerotic disease including coronary artery calcifications, without aneurysm, unchanged. 5. Interval placement of a Guerrero's catheter, appear in good position. CT chest from 12/30/22: Wall thickening of the mid and distal thoracic esophagus and stranding of the surrounding fat. No discrete mass seen. Stable small calcified and noncalcified right pulmonary nodules. New scattered areas of groundglass attenuation in the left lung and denser atelectasis or small infiltrate at the left lung base probably representing an infectious or inflammatory process. Severe coronary artery calcification. In view of the toxicity and stable disease his regimen was switched over to maintenance nivolumab. He has been tolerating that well. He is clinically doing quite well. However, his dysphagia had resolved after the stricture was dilated. It has since returned. He has had some urine abnormalities. His U/A is positive. Chest Cat scan also raised concern for a pulmonary infiltrate. l started him on Augmentin to cover both lung and UTI, pending urine culture results. Dr. Mancini proceeded with an EGD on 01/18: Distal esophageal mass lesion consistent with recurrence of adenocarcinoma. Biopsy results: Adenocarcinoma with focal signet ring cells. I discussed the results with him and his 2 daughters. Discussed the option of placement of PEG versus stent, to facilitate feeding. He is giving it some thought. He has an appointment with Dr. Stuart, on Tuesday. Meanwhile I Offered second-line chemotherapy with Taxane, along with the immune checkpoint inhibitor, pembrolizumab. Patient wishes to visit [place], to see his brother and 3 sisters, extended family and friends. I advised him to go right away now that he has a window of opportunity. He would like to start treatment upon his return. PLAN: He will undergo chemotherapy teaching upon his return. Will then get him started. He will return in 3 weeks. His daughter will call me back about the exact travel plans. Will plan treatment accordingly. He would like to come in for IV hydration prior to the trip. All his and his daughter's questions were answered to his satisfaction. Thank you, CC: Dr. Hooks. Dr. Stuart. Dr. Mancini. Addendum: Note from Dr. Stuart from 02/11: 72-year-old man with significant medical comorbidities now with a recurrence of his esophageal cancer with the plan of undergoing chemotherapy. He was having difficulty eating prior to his scope when he was dilated but this seems improved now. I discussed with the patient and his daughter the options moving forward should he have more difficulty eating again would be a stent placement versus a feeding tube of some kind. We did discuss the option of a stent which I do not think is a great option here specially after being dilated as they tend to move any need to be replaced about every 8 weeks. A PEG tube would be an option now specially that he has been dilated given that the scope could pass into the stomach to place the PEG. We discussed this and the potential timing of this would best be after he comes back from [place] before he starts his chemotherapy to allow for some healing. His daughter wants to discuss this with his other daughters and will call us back but seems like the are leaning towards having a PEG tube placed the last week in February which can be done at [facility] prior to chemotherapy starting again. I did discuss the risks, benefits, and alternatives of this which they understood. - Time Spent With Patient Time Spent with Patient (in minutes): 30
[2023-02-08 11:31] LABS: MANUAL DIFF FLAG NO
[2023-02-08 11:38] LABS: Basophils Percent Auto 0.4 % (0-2); Eosinophils Absolute Auto 0.2 X10*3/uL (0.0-0.4); Eosinophils Percent Auto 2.6 % (0-4); Hematocrit 43.2 % (42.0-52.0); Hemoglobin 13.8 g/dl (14.0-18.0); Imm Gran Abs Auto 0.04 X10*3/uL (0.00-0.03); Imm Gran Pct Auto 0.6 % (0.0-0.4); Lymphocytes Absolute Auto 2.5 X10*3/uL (1.2-4.9); Lymphocytes Percent Auto 36.6 % (20-40); Mean Corpuscular HGB Conc 31.9 g/dl (31.0-36.0); Mean Corpuscular Hemoglobin 28.3 pg (27.0-33.0); Mean Corpuscular Volume 88.5 fL (80.0-98.0); Mean Platelet Volume 10.2 fL (9.4-12.4); Monocytes Absolute Auto 0.7 X10*3/uL (0.1-1.2); Monocytes Percent Auto 9.9 % (2-11); Neutrophils Absolute Auto 3.4 x10*3/uL (2.0-8.3); Neutrophils Percent Auto 49.9 % (45-73); Platelet Count 340 X10*3/uL (160-400); Red Blood Count 4.88 X10*6/uL (4.60-5.80); Red Cell Distribution Width 15.4 % (11.0-16.0); White Blood Count 6.9 X10*3/uL (4.8-10.8)
[2023-02-08 12:01] LABS: Alanine Aminotransferase 26 U/L (0-40); Alkaline Phosphatase 274 U/L (39-117); Anion Gap 14 (12-20); Aspartate Amino Transferase 27 U/L (5-37); Bilirubin Direct < 0.2 mg/dL (0.0-0.5); Bilirubin Total 0.5 mg/dL (0.0-1.0); Blood Urea Nitrogen 10 mg/dL (9-16); Calcium 9.3 mg/dL (8.4-10.2); Carbon Dioxide 29 mmol/L (22-29); Chloride 101 mmol/L (96-108); Creatinine Clr Calc Pharmacy 61.6; Estimated Glomerular Filt Rate > 60; Glucose Random 389 mg/dL (60-115); Potassium 4.8 mmol/L (3.3-5.1); Sodium 139 mmol/L (135-145); Total Protein 7.3 g/dL (6.5-8.0)
--- NOTE | 2023-02-08 12:30 | MHC.HEMONC ---
Per Dr Anna-pt is going on vacation to [place]. When he returns will discuss different chemotherapy regime
--- NOTE | 2023-02-08 17:37 | MHC.HEMONC ---
Pt was in along w/ dtrs Elizabeth and Reny for Onc f/u appt, VSS, pt has weight gain of at least 10 lbs, labs drawn/reviewed, pt reports he's been feeling well, eating well again after esophageal dilitation, however doctors cannot say how long this will be possible w/ position of tumor. Dr. Anna was in to meet w/ pt. Pt has f/u w/ Dr. Stuart this Tue, 02/11, then family plans to take pt to [place] in the near future, Dr. Anna suggested this was a good time to do it w/ pt feeling well and eating well. Family plans to call to schedule next f/u when pt returns from his trip, will re-assess the plan at that time.
--- NOTE | 2023-02-14 12:45 | MHC.HEMONC ---
Pt had home blood draw done this morning, and glucose 375. Reported to Dr Anna. Telephone call to pts daughter Ada to report result. She is aware.
--- NOTE | 2023-03-09 11:31 | MHC.HEMONC ---
Pt's dtr, Elizabeth, called, said pt has returned from trip to [place], is ready to meet w/ Dr. Anna to discuss resuming chemo tx. Dtr said pt has surgery sched this Tue, 03/11 w/ Dr. Stuart to have feeding tube inserted, PEG tube. Nurse reviewed Dr. Anna's notes as she is not in office today, informed pt that they will need to meet w/ Dr. Anna before sched tx, as she has not entered specific tx plan or requested auth for any?new drugs. Nurse booked pt for Onc f/u appt on 03/15/23 for 16:00, also booked chemoteach appt for the same time. 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 Nurse added note to appt that pt prefers to have minimal teaching as he's familiar w/ chemo txs. Dr. Anna to be updated upon her return tomorrow.
[2023-03-15 16:09] VITALS: BP 142/84; PULSE 111; TEMP 36.6; O2SAT 98; BMI 22.4
--- NOTE | 2023-03-15 16:15 | P.PNHO-ONC_ITS ---
Medical Summary - Medical Summary Date of Service: 03/15/23 Chief complaint: Follow-up for: Carcinoma of the esophagus. 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 Endoscopic ultrasound on May 10: Ulcerated and friable partially obstructing mass extending from the GE junction through the cardia. Mass is circumferential hypoechoic fairly well circumscribed and rather homogeneous. Penetrates the muscularis propria. Making it a T3 lesion. Numerous small shotty lymph node largest being 7.5 mm not pathologic by size criteria. Tumor extends onto the gastric cardia. Celiac adenopathy could not be assessed. CURRENT THERAPY: Started radiation: July 09 2019. Completed low-dose carboplatin and Taxol weekly 08/13/2019. Now with disease recurrence. Started on systemic chemotherapy with FOLFOX, plus Nivolumab, 12/07. Completed 6 cycles. Single agent nivolumab, # 28 on 01/11/23. Interval History Interval history: This is a pleasant 72 year-old gentleman here for a follow-up visit. He had started noticing some dysphagia, mostly to solids. He underwent an upper endoscopy on 01/[address] Mancini. This revealed: Dr. Mancini proceeded with an EGD on 01/18: Distal esophageal mass lesion consistent with recurrence of adenocarcinoma. Biopsy results: Adenocarcinoma with focal signet ring cells. He had an attempted G-tube placement on 03/11. Procedure note: The gastroscope was then inserted through the oropharynx and into the esophagus visualizing the esophagusDown to where the mass is at about 35-36 cm/GE junction. I could not pass the regular gastroscope through this area to get into the stomach. For that reason we decided to try dilation and see if I could do it then.The balloon was then placed across the distal portion of the stricture including the GE junction and under vision was serially dilated from 10-12 mm. There was quite a bit of resistance once we got to 12 mm and we decided to stop at that point. Again I tried with just the gastroscope to get through after dilation at which point I was unsuccessful to push it any further. Since then he has felt a sore throat. Due to that he has not taken solids, he has tolerated oatmeal, soups and mashed potatoes. He has lost a couple of lbs. His swallowing function improved. His energy level is reasonable. No headache no dizziness. He denies chest pain or trouble breathing. He gets a little bit of a cough at night. He denies any abdominal pain. He gets occasional nausea. He takes Zofran which helps. He gets occasional heartburn/ indigestion, for which he takes omeprazole. Bowels are working without any gross blood in it. He gets constipated. He takes fiber gummies and MOM. He still enjoys a good appetite. His weight is stable. He denies any dysuria or hematuria. He does complain of left flank pain. He is in good spirits. Rest of the review of systems is unremarkable. He had a great time in [place] with family and friends. Recent history: He had complained about trouble swallowing. He actually underwent an upper endoscopy on 10/15/[address] Mancini. He had a stricture at 25 cm. That was dilated. After that the rest of the esophagus was clean. Fortunately, pathology came back negative. Since then he was able to swallow without difficulty. CT chest from 12/30/21: Wall thickening of the mid and distal thoracic esophagus and stranding of the surrounding fat. No discrete mass seen. Stable small calcified and noncalcified right pulmonary nodules. New scattered areas of groundglass attenuation in the left lung and denser atelectasis or small infiltrate at the left lung base probably representing an infectious or inflammatory process. Severe coronary artery calcification. He was in house between 06/19 to 06/20/22. Discharge summary: He was admitted for urinary retention and concern for severe leukocytosis. A Guerrero catheter was placed. He was started on finsteride and tamsulosin. He was discharged with Guerrero in place to follow up with Urology. Dr. Obrien recommended prostate medications. To leave the Guerrero in for 4 weeks. Leukocytosis was related to Neulasta. No evidence for infection or sepsis. He was hypotensive so losartan was held. Couple of weeks ago his chemotherapy was held, on account of side effects, neuropathy. He was having difficulty opening cans. He was given only nivolumab. He is feeling much better, with the break. His energy level is better. He had some difficulty swallowing with solids however, even the swallowing function has improved. He was seen by Dr. Bonilla on 07/09. His note: 71-year-old gentleman with multiple significant medical comorbidities here with his 2 daughters to discuss potential options in terms of nutrition. He does feel like he has lost 5-10 lb over the past several months and that he is actually able to get down soft foods but anything more solid seems to get stuck. Actually, the past few weeks he feels that this has improved slightly. We discussed the options of a feeding tube versus stent versus just continuing as he is. I did explain to them that an esophageal stent is only a temporary sym ptomatic reliever and that he still may be limited to soft foods with the risk of stent migration/pain/erosion. After our discussion they felt that there would be some but may be only minimal improvement with a stent in place and will continue to provide nutrition as it is. I did recommend a soft diet for him moving forward. Interim history:. He was in house between 01/17 and 01/19/22. Discharge summary: Presented with burning with urination that started a few days ago. He reported dysuria and frequency but denied hematuria as well as fever, chills, nausea or vomiting.? He is currently undergoing chemotherapy for esophageal cancer at [facility] oncology.? White blood cell count was noted to be elevated at 46,000, lactic acid 2.7, tachycardia and tachypnea.? Urinalysis was positive for UTI, chest x- ray: Negative.? He was given a dose of Rocephin IV fluids in the ER.? Was admitted for further management and treatment of severe sepsis secondary to urinary tract infection. Severe sepsis secondary to urinary tract infection. Treated with IV Rocephin. Resolved Leukocytosis, tachycardia, tachypnea, lactic acidosis. Blood cultures up to 24 hours: Negative. Previous history: At his previous visit, in November,: He tells me that he has had some dif ficulty swallowing lately. It is mostly to solids. Liquids go down easily. It is a level 6 on 1-10 scale. Sometimes while eating he has a choking sensation. He is mostly taking soft diet including oatmeal, soups and rice. He tries to avoid chicken since it causes acid reflux. Patient was seen here back in mid . He complained that over the past couple of weeks he noted a cough. Would bring up clear sputum. He had been using DayQuil and NyQuil for symptoms. His appetite had declined. He denied obvious dysphagia or odynophagia. He had a CT scan of the chest on 10/08/2021 which revealed: Limited evaluation of pulmonary nodules due to artifact from respiratory motion. The 3 mm calcified right upper lobe nodule is stable. Other previously identified pulmonary nodules are not identified. Interval increase in wall thickening of the distal thoracic esophagus, GE junction and proximal stomach compared to January 2020 exam. On November 17, he underwent an upper endoscopy by Dr. Mancini which revealed: Esophagus: There was ulceration and friability with heaped up mucosa beginning at about 34 cm and extending to the EG junction at 36 cm and into the stomach for approximately 1 cm to 2 cm below this. Biopsies were obtained from the abnormal mucosa. The mucosa was ulcerated and friable with heaped up margins suspicious for recurrent tumor as opposed to just changes from his previous chemoradiation treatments. The scope was easily passed into the stomach with minimal narrowing at the EG junction. Pathology revealed: Superficial fragments of adenocarcinoma, poorly differentiated from EG junction mass, 36 cm, 34 cm. Review of Systems - Constitutional Reports system reviewed and no additional complaints, except as documented, Reports weakness, Reports weight loss, Denies fever(s) - Eyes Reports system reviewed and no additional complaints, except as documented - ENT Reports system reviewed and no additional complaints, except as documented - Cardiovascular Reports system reviewed and no additional complaints, except as documented - Respiratory Reports no additional respiratory complaints - Gastrointestinal Reports system reviewed and no additional complaints, except as documented Comments: Dysphagia to solids. Sore throat. - Genitourinary Genitourinary: Reports no additional male genitourinary complaints - Musculoskeletal Reports system reviewed and no additional complaints, except as documented - Integumentary/Breasts Skin/Breast: Reports no additional skin complaints - Neurologic Reports system reviewed and no additional complaints, except as documented, Denies behavioral changes, Denies weakness - Psychiatric Reports system reviewed and no additional complaints, except as documented - Endocrine Reports no additional endocrine complaints - Hematologic/Lymphatic Reports system reviewed and no additional complaints, except as documented - Allergic/Immunologic Reports system reviewed and no additional complaints, except as documented PMFSH Medical History: Medical History (Last Reviewed 03/15/23 @ 16:10 by Dominique Galo) Adenocarcinoma of cardio-esophageal junction Onset Date: ~2018 Anxiety Benign essential hypertension Constipation Depression Diabetes type 2, uncontrolled HLD (hyperlipidemia) Keratotic lesion jail (current) use of insulin Port-A-Cath in place Suprapubic catheter Vitamin D deficiency Functional capacity: wheelchair bound Patient : No Family History: Family History (Last Reviewed 03/15/23 @ 16:10 by Dominique Galo) Father Diabetes Hypertension Mother No problems noted. Surgical History: Surgical History (Last Reviewed 03/15/23 @ 16:10 by Dominique Galo) History of atherectomy Onset Date: ~2018 History of esophagogastroduodenoscopy History of left below knee amputation Onset Date: ~2018 Social History: Social History (Last Reviewed 03/15/23 @ 16:10 by Dominique Galo) Living Situation History: Household Members: Family Housing: House Tobacco History: Patient Tobacco Use Status: Never used Tobacco e-Cigarette/Vaping Use: Never Used Second Hand Smoke Exposure: Yes Advance Directives: Advance Directives Date on File: 08/19/20 Nutrition Assessment: Patient : No Occupation Assessmet: service: No Current occupational status: retired Current occupational status: disabled Home Medications and Allergies Home Medications Medication Instructions Recorded Confirmed Type aluminum-mag hydroxide-simethicone 80 ml PO USEASDIRECTD 06/19/22 03/15/23 History 400 mg-400 mg-40 mg/5 mL oral susp (Antacid Maximum Strength) blood sugar diagnostic (FreeStyle 06/19/22 03/15/23 History Lite Strips) cholecalciferol (vitamin D3) 25 1 cap PO QAM 06/19/22 03/15/23 History mcg (1,000 unit) capsule (Vitamin D3) diphenhydramine HCl 12.5 mg/5 mL See Rx Instructions .Route .COMPLEX 06/19/22 03/15/23 History oral liquid (Allergy Relief (diphenhydramine)) ferrous sulfate 325 mg (65 mg 1 tab PO QAM 06/19/22 03/15/23 History iron) tablet (FeroSul) glucagon 0.5 mg/0.1 mL 0.1 ml subcut DAILY PRN 06/19/22 03/15/23 History subcutaneous auto-injector (Gvoke Hypoglycemia HypoPen 2-Pack) metoprolol succinate 25 mg 0.5 tab PO QPM 06/19/22 03/15/23 History tablet,extended release 24 hr pen needle, diabetic 32 gauge x 06/19/22 03/15/23 History (Pentips) duloxetine 30 mg capsule,delayed 30 mg PO DAILY 09/08/22 03/15/23 History release losartan 100 mg tablet 100 mg PO DAILY 09/08/22 03/15/23 History metformin 500 mg tablet,extended 1,000 mg PO BID 09/08/22 03/15/23 History release 24 hr Allergies Allergy/AdvReac Type Severity Reaction Status Date / Time No Known Allergies Allergy Verified 03/15/23 16:10 Exam Vital signs: Vital Signs Temp 97.8 F 03/15/23 16:09 Pulse 111 H 03/15/23 16:09 Resp 18 02/08/23 11:17 BP 142/84 H 03/15/23 16:09 Pulse Ox 98 03/15/23 16:09 O2 Del Method Room Air 03/15/23 16:09 Intake & Output 03/14/23 03/15/23 03/15/23 18:59 06:59 18:59 Other: Weight 66.7 kg Weight in Grams [id number] Weight 66.7 kg BMI result Body Mass Index 22.4 - Constitutional Present: no acute distress - Routine HEENT Exam Head: Present: normal inspection Eye: Present: normal appearance ENT: Present: mucous membranes moist - Routine Neck Exam Present: full ROM - Routine Respiratory Exam Present: CTAB - Routine Cardiovascular Exam Cardiovascular: Present: RRR, S1, S2 - Routine Abdominal Exam Present: soft, nontender - Routine Extremities Exam Present: nontender - Routine Back/Spine/Pelvis Exam Back/Spine: Present: full ROM - Routine Skin Exam Present: intact - Routine Neurological Exam Present: alert, oriented X3 - Routine Psychiatric Exam Present: normal affect Data - Labs CBC & Chem 7: 02/08/23 11:29 02/08/23 11:29 Assessment and Plan Patient Active problem list reviewed?: Yes (1) Carcinoma of thoracic esophagus Status: Inactive Assessment and plan: This is a pleasant 71 year-old gentleman diagnosed with Carcinoma of the Esophagus, back in summer. Upper endoscopy revealed a 4 cm mass extending from the EG junction to 1-2 cm below the EG junction. Pathology: Superficial fragments of adenocarcinoma, moderately differentiated, arising in a background of Mcintyre's esophagus. HER2: 0. Endoscopic ultrasound May 10 2019: T3, N0 lesion. PET scan revealed disease confined to the esophagus. He underwent neoadjuvant chemoradiation. He received carboplatin and Taxol weekly. PET scan on 10/04/2019 showed: Mild improvement in uptake in the distal esophagus and fundus of the stomach. C6 cervical vertebra showed uptake question of a lesion. Stable small right lower lung nodule. No uptake. Bone scan from 10/22/19 revealed: Mild abnormalities in several ribs likely representing chronic rib fractures an ongoing bone remodeling. Mild on specific abnormalities is all related to arthritis. He saw Dr. Stuart. He did offer surgical resection however patient was concerned about the risks involved and so declined. EGD from 12/07/2019: EG junction was located at 39 cm. There were 2 areas of ulceration 1 measuring 10 mm and 1 measuring 5 mm at the EG junction. The previous tumor was not seen. No stricture. Pathology: GE junction mucosa with moderate acute and chronic inflammation, mucin and detached fragments of granulation tissue consistent with ulcer and esophagitis, negative for dysplasia or malignancy. CT scan from 01/22/20 revealed: Stable pulmonary nodules compared to 03/15 019. He had an upper endoscopy by Dr. Mancini in November of 2019 which revealed: The EG junction was located at 39 cm. There were 2 areas of ulceration, one measuring approximately 10 mm and one measuring approximately 5 mm at the EG junction. The previous tumor was not seen. The scope passed easily into the stomach. There was no stricture. Pathology: A. GE junction, biopsies: Gastroesophageal junctional mucosa with moderate acute and chronic inflammation, mucin and detached fragments of granulation tissue consistent with ulcer and esophagitis; negative for intestinal metaplasia; negative for dysplasia or malignancy. He has been feeling reasonably well. He denies any further dysphagia. However lately he has had a cough with sputum. His appetite is not that good and he has been losing weight. He had a CT scan of the chest on 10/08/2021 which revealed: Limited evaluation of pulmonary nodules due to artifact from respiratory motion. The 3 mm calcified right upper lobe nodule is stable. Other previously identified pulmonary nodules are not identified. Interval increase in wall thickening of the distal thoracic esophagus, GE junction and proximal stomach compared to January 2020 exam. I referred him to Dr. Mancini, who proceeded with an upper endoscopy, on 11/[address] [facility] revealed: On November 17, he underwent an upper endoscopy by Dr. Mancini which revealed: Esophagus: There was ulceration and friability with heaped up mucosa beginning at about 34 cm and extending to the EG junction at 36 cm and into the stomach for approximately 1 cm to 2 cm below this. Biopsies were obtained from the abnormal mucosa. The mucosa was ulcerated and friable with heaped up margins suspicious for recurrent tumor as opposed to just changes from his previous chemoradiation treatments. The scope was easily passed into the stomach with minimal narrowing at the EG junction. Pathology revealed: Superficial fragments of adenocarcinoma, poorly differentiated from EG junction mass, 36 cm, 34 cm. HER2/April: Negative. CEA level: 12.30. I shared the results with him and his daughters. I offered them systemic chemotherapy with FOLFOX/XELOX plus/minus, nivolumab based chemotherapy.(based upon the PDL1 status.) They are going to discuss it with the family and get back to me about their decision. In the meantime will have him consult with Dr. Stuart, to get his opinion and to see if a stent would be feasible. He saw him a couple of months ago. That time, he did not feel a stent was feasible. I proceeded with PDL1 testing. This came back positive for PDL1 of 25. There were given written information about the chemotherapy regimens. Details of the regimen including potential side effects of hypersensitivity reaction, skin rash, arthralgias myalgias, nausea vomiting diarrhea, peripheral neuropathy, renal toxicity, hepatotoxicity, risk of infection, need for antibiotic, blood transfusion as well as growth factors were addressed with him. He understood and was willing to proceed. He had a Port-A-Cath placed to facilitate the chemotherapy. He started treatment 12/07. He is tolerating it very well. His symptoms of dysphagia have resolved. He is able to eat well. Database: CBC from 02/15: WBC 4, HGB 11.3, HCT 36.1, PLT 176. CMP from 02/15: Lytes WNL, BUN 18, CHROME CLEANER 0.83, glucose 131. Calcium 9.2, albumin 3.5. LFTs: 0.7/180/34/29. CEA level: 5.80. CT scan of the chest and abdomen from 02/10, revealed: New right lower lobe nodules. Interval increase in wall thickening of the distal thoracic esophagus and GE junction. Wall thickening of the distal thoracic esophagus GE junction increased from pre vious exam. Thickened trabeculated bladder wall. Enlarged prostate gland. Abnormal soft tissue at the base of the bladder similar to previous exam probably related to lobulated contour of the prostate gland. New or increased gallbladder fundus wall thickening. Database: Labs from 03/29: CBC: WBC 9.9, HGB 11, HCT 34.8, MCV 89.2, PLT 95. CMP: Lytes WNL, glucose 154, Hermelindo 9.1, alb 3. LFTs: 0.7/243/. CEA: 5.80. CBC from 05/03: WBC 7.6, HGB 10.9, HCT 34.1, PLT 92. CT chest from 04/16: Diffuse mural thickening involving mid and distal esophagus similar to previous study. There is mild wall thickening of the GE junction as well. There are several calcified and noncalcified nodules unchanged to the previous study. There are no new nodules. There is no abnormal mediastinal or axillary lymphadenopathy. He was in house between 06/19 to 06/20. With urinary retention. He saw Urology. Guerrero was placed. Due to ongoing neuropathy and treatment related side effects, he was treated with nivolumab with his last cycle, cycle 7 day 1. The treatment does appear to be working. I had a discussion with him and his daughter. He had a PET scan on 07/20, for restaging, it revealed: 1. No metabolically active disease is present. Note is made of persistent stable metabolically inactive nonspecific circumferential thickening within the distal thoracic esophagus extending into the GE junction region, may represent changes secondary to prior treatment, suboptimal distention /physiologic changes or combination thereof. Direct visualization may be considered if local disease recurrence is clinically suspected. 2. Stable sub-5 mm noncalcified right upper and right lower lung nodules, unchanged since 10/04/2019. 3. Stable sub-5 mm focal area of sclerosis involving L2 vertebral body, unchanged since 10/04/2019, without any concordant increased metabolic activity. 4. Diffuse atherosclerotic disease including coronary artery calcifications, without aneurysm, unchanged. 5. Interval placement of a Guerrero's catheter, appear in good position. CT chest from 12/30/22: Wall thickening of the mid and distal thoracic esophagus and stranding of the surrounding fat. No discrete mass seen. Stable small calcified and noncalcified right pulmonary nodules. New scattered areas of groundglass attenuation in the left lung and denser atelectasis or small infiltrate at the left lung base probably representing an infectious or inflammatory process. Severe coronary artery calcification. In view of the toxicity and stable disease his regimen was switched over to maintenance nivolumab. He has been tolerating that well. He is clinically doing quite well. However, his dysphagia had resolved after the stricture was dilated. It has since returned. He has had some urine abnormalities. His U/A is positive. Chest Cat scan also raised concern for a pulmonary infiltrate. l started him on Augmentin to cover both lung and UTI, pending urine culture results. Dr. Mancini proceeded with an EGD on 01/18: Distal esophageal mass lesion consistent with recurrence of adenocarcinoma. Biopsy results: Adenocarcinoma with focal signet ring cells. Note from Dr. Stuart from 02/11: 72-year-old man with significant medical comorbidities now with a recurrence of his esophageal cancer with the plan of undergoing chemotherapy. He was having difficulty eating prior to his scope when he was dilated but this seems improved now. I discussed with the patient and his daughter the options moving forward should he have more difficulty eating again would be a stent placement versus a feeding tube of some kind. We did discuss the option of a stent which I do not think is a great option here specially after being dilated as they tend to move any need to be replaced about every 8 weeks. A PEG tube would be an option now specially that he has been dilated given that the scope could pass into the stomach to place the PEG. We discussed this and the potential timing of this would best be after he comes back from [place] before he starts his chemotherapy to allow for some healing. His daughter wants to discuss this with his other daughters and will call us back but seems like the are leaning towards having a PEG tube placed the last week in February which can be done at [facility] prior to chemotherapy starting again. I did discuss the risks, benefits, and alternatives of this which they understood. I discussed the results with him and his 2 daughters. The G-tube placement was unsuccessful however, Dr. Stuart was able to dilate, esophagus where the mass was. He is still avoiding solid since he has a sore throat after the procedure. PLAN: I discussed the plan with Dr. Stuart. He recommended we proceed with surgically placed G-tube. Referral was made to Dr. Blanco. Once that has been placed we can proceed with second-line chemotherapy with the immune checkpoint inhibitor, pembrolizumab. He will undergo chemotherapy teaching next week. Will then get him started. He will return in 2 weeks. Meanwhile I will send a prescription for Magic mouthwash. All his and his daughter's questions were answered to his satisfaction. Thank you, CC: Dr. Hooks. Dr. Stuart. Dr. Mancini. - Time Spent With Patient Time Spent with Patient (in minutes): 30
--- NOTE | 2023-03-15 16:45 | MHC.HEMONCMA ---
patient seen todayfor adenocarcinoma of throat, vss, following up in 2 weeks with provider
--- NOTE | 2023-03-15 16:46 | MHC.HEMONC ---
Nurse spoke w/ Dr. Anna, who said that pt needs some more time to recover from dilitation of esophagus performed at end of last week, his throat is still sore and he cannot eat, it is unclear if dysphasia is r/t soreness from dilitation or growth of tumor. Dr. Anna asked pt to return in 1-2 weeks, will have time to consult w/ surgeon, if he does resume tx, it will be w/ pembrolizumab, 200 mg IV Q21 Days. Nurse provided Marketing Services Manager Ashanti w/ tx plan for Pembro, to obtain PA if needed. Nurse resched chemo teach appt from today to coincide w/ Onc f/u appt booked on 03/29/23 at 08:20.
--- NOTE | 2023-03-17 10:46 | MHC.HEMONC ---
Triage call -received call from daughter stating pt does not want the last person who genevieve blood to return for additional lab draws as last person left bruising. Holly from phlebotomy called and notified
--- NOTE | 2023-03-17 11:26 | HO.HEMONCPA ---
Addendum entered by Ashanti Ricketts 03/21/23 12:06: PA for [id number] Pembrolizumab APPROVED FOR 18 VISITS. AUTH# [id number]. DOS - 03/17/23 to 03/17/24. DOCUMENT SCANNED IN THE CHART Original Note: BROCK for [id number] Pembrolizumab REQUESTED AWAITING DECISION
--- NOTE | 2023-03-22 14:04 | MHC.HEMONC ---
Pt daughter called states she spoke to Dr Anna on Tuesday and she had ordered a surgical consult for a feeding tube placement and she has not heard anything. This nurse checked with DR Anna and a consult was put in with Dr Mario. This nurse called Saima back and let her know she should be hearing from their office. No further questions.
--- NOTE | 2023-03-31 08:15 | P.PNHO-ONC_ITS ---
Medical Summary - Medical Summary Date of Service: 03/31/23 Chief complaint: Follow-up for carcinoma of the esophagus. 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 Endoscopic ultrasound on May 10: Ulcerated and friable partially obstructing mass extending from the GE junction through the cardia. Mass is circumferential hypoechoic fairly well circumscribed and rather homogeneous. Penetrates the muscularis propria. Making it a T3 lesion. Numerous small shotty lymph node largest being 7.5 mm not pathologic by size criteria. Tumor extends onto the gastric cardia. Celiac adenopathy could not be assessed. CURRENT THERAPY: Started radiation: July 09 2019. Completed low-dose carboplatin and Taxol weekly 08/13/2019. Now with disease recurrence. Started on systemic chemotherapy with FOLFOX, plus Nivolumab, 12/07. Completed 6 cycles. Single agent nivolumab, # 28 on 01/11/23. Has had disease progression. Here To start pembrolizumab. Interval History Interval history: This is a pleasant 72 year-old gentleman here for a follow-up visit. He was in house over the weekend for a UTI. Discharge summary: 72yo M with chronic Guerrero, DM2, HLD, adenoCA of esophagus on chemo, anxiety/depression presenting with blocked Guerrero + suprapubic pain was admitted for severe sepsis due to complicated UTI. He has a history of Pseudomonas UTI. The Guerrero was replaced. Lactate normalized after fluid resuscitation. [place] [facility] [place] cefepime for 3 days. Urine culture was contaminated. Blood cultures were negative. He was discharged on 5 days of PO levofloxaciiin. RECENT HISTORY: He had started noticing some dysphagia, mostly to solids. He underwent an upper endoscopy on 01/[address] Mancini. This revealed: Dr. Mancini proceeded with an EGD on 01/18: Distal esophageal mass lesion consistent with recurrence of adenocarcinoma. Biopsy results: Adenocarcinoma with focal signet ring cells. He had an attempted G-tube placement on 03/11. Procedure note: The gastroscope was then inserted through the oropharynx and into the esophagus visualizing the esophagusDown to where the mass is at about 35-36 cm/GE junction. I could not pass the regular gastroscope through this area to get into the stomach. For that reason we decided to try dilation and see if I could do it then.The balloon was then placed across the distal portion of the stricture including the GE junction and under vision was serially dilated from 10-12 mm. There was quite a bit of resistance once we got to 12 mm and we decided to stop at that point. Again I tried with just the gastroscope to get through after dilation at which point I was unsuccessful to push it any further. Since then he has he has not been able to take solids. He is on a semi solid diet. He can tolerated oatmeal, soups and mashed potatoes. He has lost a couple of lbs. His energy level is good. No headache no dizziness. He denies chest pain or trouble breathing. He gets a little bit of a cough at night. He denies any abdominal pain. He gets occasional nausea. He takes Zofran which helps. He gets occasional heartburn/ indigestion, for which he takes omeprazole. Bowels are working without any gross blood in it. He gets constipated. He takes fiber gummies and MOM. He still enjoys a good appetite. His weight is stable. He denies any dysuria or hematuria. He does complain of left flank pain. He is in good spirits. Rest of the review of systems is unremarkable. He had a great time in [place] with family and friends. INTERIM HISTORY: He had complained about trouble swallowing. He actually underwent an upper endoscopy on 10/15/[address] Mancini. He had a stricture at 25 cm. That was dilated. After that the rest of the eso phagus was clean. Fortunately, pathology came back negative. Since then he was able to swallow without difficulty. CT chest from 12/30/21: Wall thickening of the mid and distal thoracic esophagus and stranding of the surrounding fat. No discrete mass seen. Stable small calcified and noncalcified right pulmonary nodules. New scattered areas of groundglass attenuation in the left lung and denser atelectasis or small infiltrate at the left lung base probably representing an infectious or inflammatory process. Severe coronary artery calcification. He was in house between 06/19 to 06/20/22. Discharge summary: He was admitted for urinary retention and concern for severe leukocytosis. A Guerrero catheter was placed. He was started on finsteride and tamsulosin. He was discharged with Guerrero in place to follow up with Urology. Dr. Obrien recommended prostate medications. To leave the Guerrero in for 4 weeks. Leukocytosis was related to Neulasta. No evidence for infection or sepsis. He was hypotensive so losartan was held. Couple of weeks ago his chemotherapy was held, on account of side effects, neuropathy. He was having difficulty opening cans. He was given only nivolumab. He is feeling much better, with the break. His energy level is better. He had some difficulty swallowing with solids however, even the swallowing function has improved. He was seen by Dr. Bonilla on 07/09. His note: 71-year-old gentleman with multiple significant medical comorbidities here with his 2 daughters to discuss potential options in terms of nutrition. He does feel like he has lost 5-10 lb over the past several months and that he is actually able to get down soft foods but anything more solid seems to get stuck. Actually, the past few weeks he feels that this has improved slightly. We discussed the options of a feeding tube versus stent versus just continuing as he is. I did explain to them that an esophageal stent is only a temporary symptomatic reliever and that he still may be limited to soft foods with the risk of stent migration/pain/erosion. After our discussion they felt that there would be some but may be only minimal improvement with a stent in place and will continue to provide nutrition as it is. I did recommend a soft diet for him moving forward. Interim history:. He was in house between 01/17 and 01/19/22. Discharge summary: Presented with burning with urination that started a few days ago. He reported dysuria and frequency but denied hematuria as well as fever, chills, nausea or vomiting.? He is currently undergoing chemotherapy for esophageal cancer at [facility] [place].? White blood cell count was noted to be elevated at 46,000, lactic acid 2.7, tachycardia and tachypnea.? Urinalysis was positive for UTI, chest x- ray: Negative.? He was given a dose of Rocephin IV fluids in the ER.? Was admitted for further management and treatment of severe sepsis secondary to urinary tract infection. Severe sepsis secondary to urinary tract infection. Treated with IV Rocephin. Resolved Leukocytosis, tachycardia, tachypnea, lactic acidosis. Blood cultures up to 24 hours: Negative. Previous history: At his previous visit, in November,: He tells me that he has had some difficulty swallowing lately. It is mostly to solids. Liquids go down easily. It is a level 6 on 1-10 scale. Sometimes while eating he has a choking sensation. He is mostly taking soft diet including oatmeal, soups and rice. He tries to avoid chicken since it causes acid reflux. Patient was seen here back in mid . He complained that over the past couple of weeks he noted a cough. Would bring up clear sputum. He had been using DayQuil and NyQuil for symptoms. His appetite had declined. He denied obvious dysphagia or odynophagia. He had a CT scan of the chest on 10/08/2021 which revealed: Limited evaluation of pulmonary nodules due to artifact from respiratory motion. The 3 mm calcified right upper lobe nodule is stable. Other previously identified pulmonary nodules are not identified. Interval increase in wall thickening of the distal thoracic esophagus, GE junction and proximal stomach compared to January 2020 exam. On November 17, he underwent an upper endoscopy by Dr. Mancini which revealed: Esophagus: There was ulceration and friability with heaped up mucosa beginning at about 34 cm and extending to the EG junction at 36 cm and into the stomach for approximately 1 cm to 2 cm below this. Biopsies were obtained from the abnormal mucosa. The mucosa was ulcerated and friable with heaped up margins suspicious for recurrent tumor as opposed to just changes from his previous chemoradiation treatments. The scope was easily passed into the stomach with minimal narrowing at the EG junction. Pathology revealed: Superficial fragments of adenocarcinoma, poorly differentiated from EG junction mass, 36 cm, 34 cm. Review of Systems - Constitutional Reports no additional constitutional complaints, Denies fatigue, Denies fever(s), Denies weakness, Denies weight loss - Eyes Reports no additional eye complaints - ENT Reports no additional ear, nose, mouth, and throat complaints - Cardiovascular Reports no additional cardiovascular complaints - Respiratory Reports no additional respiratory complaints - Gastrointestinal Reports no additional gastrointestinal complaints - Genitourinary Genitourinary: Reports no additional male genitourinary complaints - Musculoskeletal Reports no additional musculoskeletal complaints - Integumentary/Breasts Skin/Breast: Reports no additional skin complaints - Neurologic Reports no additional neurologic complaints, Denies behavioral changes, Reports weakness - Psychiatric Reports no additional psychiatric complaints - Endocrine Reports no additional endocrine complaints - Hematologic/Lymphatic Reports no additional hematologic/lymphatic complaints - Allergic/Immunologic Reports no additional allergic/immunologic complaints [facility] Medical History: Medical History (Last Reviewed 03/30/23 @ 11:36 by PRAMOD Dorsey) Anxiety Benign essential hypertension Constipation Depression Diabetes type 2, uncontrolled HLD (hyperlipidemia) Keratotic lesion [facility] (current) use of insulin Port-A-Cath in place Suprapubic catheter Vitamin D deficiency Functional capacity: wheelchair bound Patient : No Family History: Family History (Last Reviewed 03/30/23 @ 11:36 by PRAMOD Dorsey) Father Diabetes Hypertension Mother No problems noted. Surgical History: Surgical History (Last Reviewed 03/30/23 @ 11:36 by PRAMOD Dorsey) Adenocarcinoma of cardio-esophageal junction Onset Date: ~2018 History of atherectomy Onset Date: ~2018 History of esophagogastroduodenoscopy History of left below knee amputation Onset Date: ~2018 Social History: Social History (Last Reviewed 03/30/23 @ 11:36 by PRAMOD Dorsey) Living Situation History: Household Members: Family Housing: House Do you presently have visiting nurse or other home services: No Tobacco History: Patient Tobacco Use Status: Never used Tobacco e-Cigarette/Vaping Use: Never Used Second Hand Smoke Exposure: No Advance Directives: Advance Directives Date on File: 02/03/22 Occupation Assessmet: service: No Current occupational status: retired Current occupational status: disabled Oncology Screenings - ECOG Performance Status ECOG Performance Status: 2 Home Medications and Allergies Current Medications: Current Medications Acetaminophen (Acetaminophen 325 Mg Tablet) 650 mg PO ONCE COURTNEY Stop: 03/31/23 23:59 Diphenhydramine HCl (Diphenhydramine Hcl 50 Mg/Ml Vial) 25 mg IVPUSH ONCE COURTNEY Stop: 03/31/23 23:59 Heparin Sodium (Porcine) (Heparin Sodium,Porcine Flush 500 Unit/5 Ml Syringe) 500 unit IVFLUSH ONCE COURTNEY Stop: 03/31/23 23:59 Ondansetron HCl (Ondansetron Odt 8 Mg Tab.Rapdis) 8 mg TRANSLINGU ONCE COURTNEY Stop: 03/31/23 23:59 Home Medications Medication Instructions Recorded Confirmed Type blood sugar diagnostic (FreeStyle 06/19/22 03/15/23 History Lite Strips) cholecalciferol (vitamin D3) 25 1 cap PO QAM 06/19/22 03/27/23 History mcg (1,000 unit) capsule (Vitamin D3) metoprolol succinate 25 mg 0.5 tab PO QPM 06/19/22 03/27/23 History tablet,extended release 24 hr pen needle, diabetic 32 gauge x 06/19/22 03/15/23 History / (Pentips) lorazepam 0.5 mg tablet 0.5 mg PO BID 03/27/23 03/27/23 History ondansetron 8 mg disintegrating 8 mg PO Q8H PRN nausea 03/27/23 03/27/23 History tablet insulin aspar prot-insulin aspart See Rx Instructions subcut BID 03/30/23 History 100 unit/mL (70-30) subcutaneous pen (Novolog Mix 70-30FlexPen U-100) Allergies Allergy/AdvReac Type Severity Reaction Status Date / Time No Known Allergies Allergy Verified 03/30/23 11:34 Exam Vital signs: Vital Signs Temp 97.8 F 03/15/23 16:09 Pulse 111 H 03/15/23 16:09 Resp 18 02/08/23 11:17 BP 142/84 H 03/15/23 16:09 Pulse Ox 98 03/15/23 16:09 O2 Del Method Room Air 03/15/23 16:09 Weight 66.7 kg BMI result Body Mass Index 22.4 - Constitutional Present: no acute distress - Routine HEENT Exam Head: Present: normal inspection Eye: Present: normal appearance ENT: Present: mucous membranes moist - Routine Neck Exam Present: full ROM - Routine Respiratory Exam Present: CTAB - Routine Cardiovascular Exam Cardiovascular: Present: RRR, S1, S2 - Routine Abdominal Exam Present: soft, nontender - Routine Extremities Exam Present: nontender - Routine Back/Spine/Pelvis Exam Back/Spine: Present: full ROM - Routine Skin Exam Present: intact - Routine Neurological Exam Present: alert, oriented X3 - Routine Psychiatric Exam Present: normal affect Data - Labs CBC & Chem 7: 02/08/23 11:29 03/31/23 09:27 Assessment and Plan Patient Active problem list reviewed?: Yes (1) Carcinoma of thoracic esophagus Status: Inactive Assessment and plan: This is a pleasant 71 year-old gentleman diagnosed with Carcinoma of the Es ophagus, back in summer. Upper endoscopy revealed a 4 cm mass extending from the EG junction to 1-2 cm below the EG junction. Pathology: Superficial fragments of adenocarcinoma, moderately differentiated, arising in a background of Mcintyre's esophagus. HER2: 0. Endoscopic ultrasound May 10 2019: T3, N0 lesion. PET scan revealed disease confined to the esophagus. He underwent neoadjuvant chemoradiation. He received carboplatin and Taxol weekly. PET scan on 10/04/2019 showed: Mild improvement in uptake in the distal esophagus and fundus of the stomach. C6 cervical vertebra showed uptake question of a lesion. Stable small right lower lung nodule. No uptake. Bone scan from 10/22/19 revealed: Mild abnormalities in several ribs likely representing chronic rib fractures an ongoing bone remodeling. Mild on specific abnormalities is all related to arthritis. He saw Dr. Stuart. He did offer surgical resection however patient was concerned about the risks involved and so declined. EGD from 12/07/2019: EG junction was located at 39 cm. There were 2 areas of ulceration 1 measuring 10 mm and 1 measuring 5 mm at the EG junction. The previous tumor was not seen. No stricture. Pathology: GE junction mucosa with moderate acute and chronic inflammation, mucin and detached fragments of granulation tissue consistent with ulcer and esophagitis, negative for dysplasia or malignancy. CT scan from 01/22/20 revealed: Stable pulmonary nodules compared to 03/15 019. He had an upper endoscopy by Dr. Mancini in November of 2019 which revealed: The EG junction was located at 39 cm. There were 2 areas of ulceration, one measuring approximately 10 mm and one measuring approximately 5 mm at the EG junction. The previous tumor was not seen. The scope passed easily into the stomach. There was no stricture. Pathology: A. GE junction, biopsies: Gastroesophageal junctional mucosa with moderate acute and chronic inflammation, mucin and detached fragments of granulation tiss ue consistent with ulcer and esophagitis; negative for intestinal metaplasia; negative for dysplasia or malignancy. He has been feeling reasonably well. He denies any further dysphagia. However lately he has had a cough with sputum. His appetite is not that good and he has been losing weight. He had a CT scan of the chest on 10/08/2021 which revealed: Limited evaluation of pulmonary nodules due to artifact from respiratory motion. The 3 mm calcified right upper lobe nodule is stable. Other previously identified pulmonary nodules are not identified. Interval increase in wall thic kening of the distal thoracic esophagus, GE junction and proximal stomach compared to January 2020 exam. I referred him to Dr. Mancini, who proceeded with an upper endoscopy, on 11/17 which revealed: On November 17, he underwent an upper endoscopy by Dr. Mancini which revealed: Esophagus: There was ulceration and friability with heaped up mucosa beginning at about 34 cm and extending to the EG junction at 36 cm and into the stomach for approximately 1 cm to 2 cm below this. Biopsies were obtained from the abnormal mucosa. The mucosa was ulcerated and friable with heaped up margins suspicious for recurrent tumor as opposed to just changes from his previous chemoradiation treatments. The scope was easily passed into the stomach with minimal narrowing at the EG junction. Pathology revealed: Superficial fragments of adenocarcinoma, poorly differentiated from EG junction mass, 36 cm, 34 cm. HER2/April: Negative. CEA level: 12.30. I shared the results with him and his daughters. I offered them systemic chemotherapy with FOLFOX/XELOX plus/minus, nivolumab based chemotherapy.(based upon the PDL1 status.) They are going to discuss it with the family and get back to me about their decision. In the meantime will have him consult with Dr. Stuart, to get his opinion and to see if a stent would be feasible. He saw him a couple of months ago. That time, he did not feel a stent was feasible. I proceeded with PDL1 testing. This came back positive for PDL1 of 25. There were given written information about the chemotherapy regimens. Details of the regimen including potential side effects of hypersensitivity reaction, skin rash, arthralgias myalgias, nausea vomiting diarrhea, peripheral neuropathy, renal toxicity, hepatotoxicity, risk of infection, need for antibiotic, blood transfusion as well as growth factors were addressed with him. He understood and was willing to proceed. He had a Port-A-Cath placed to facilitate the chemotherapy. He started treatment 12/07. He is tolerating it very well. His symptoms of dysphagia have resolved. He is able to eat well. Database: CBC from 02/15: WBC 4, HGB 11.3, HCT 36.1, PLT 176. CMP from 02/15: Lytes WNL, BUN 18, COLLAR SEWER 0.83, glucose 131. Calcium 9.2, albumin 3.5. LFTs: 0.7/180/34/29. CEA level: 5.80. CT scan of the chest and abdomen from 02/10, revealed: New right lower lobe nodules. Interval increase in wall thickening of the distal thoracic esophagus and GE junction. Wall thickening of the distal thoracic esophagus GE junction increased from previous exam. Thickened trabeculated bladder wall. Enlarged prostate gland. Abnormal soft tissue at the base of the bladder similar to previous exam probably related to lobulated contour of the prostate gland. New or increased gallbladder fundus wall thickening. Database: Labs from 03/29: CBC: WBC 9.9, HGB 11, HCT 34.8, MCV 89.2, PLT 95. CMP: Lytes WNL, glucose 154, Hermelindo 9.1, alb 3. LFTs: 0.7/243/. CEA: 5.80. CBC from 05/03: WBC 7.6, HGB 10.9, HCT 34.1, PLT 92. CT chest from 04/16: Diffuse mural thickening involving mid and distal esophagus similar to previous study. There is mild wall thickening of the GE junction as well. There are several calcified and noncalcified nodules unchanged to the previous study. There are no new nodules. There is no abnormal mediastinal or axillary lymphadenopathy. He was in house between 06/19 to 06/20. With urinary retention. He saw Urology. Guerrero was placed. Due to ongoing neuropathy and treatment related side effects, he was treated with nivolumab with his last cycle, cycle 7 day 1. The treatment does appear to be working. I had a discussion with him and his daughter. He had a PET scan on 07/20, for restaging, it revealed: 1. No metabolically active disease is present. Note is made of persistent stable metabolically inactive nonspecific circumferential thickening within the distal thoracic esophagus extending into the GE junction region, may represent changes secondary to prior treatment, suboptimal distention /physiologic changes or combination thereof. Direct visualization may be considered if local disease recurrence is clinically suspected. 2. Stable sub-5 mm noncalcified right upper and right lower lung nodules, unchanged since 10/04/2019. 3. Stable sub-5 mm focal area of sclerosis involving L2 vertebral body, unchanged since 10/04/2019, without any concordant increased metabolic activity. 4. Diffuse atherosclerotic disease including coronary artery calcifications, without aneurysm, unchanged. 5. Interval placement of a Guerrero's catheter, appear in good position. CT chest from 12/30/22: Wall thickening of the mid and distal thoracic esophagus and stranding of the surrounding fat. No discrete mass seen. Stable small calcified and noncalcified right pulmonary nodules. New scattered areas of groundglass attenuation in the left lung and denser atelectasis or small infiltrate at the left lung base probably representing an infectious or inflammatory process. Severe coronary artery calcification. In view of the toxicity and stable disease his regimen was switched over to maintenance nivolumab. He has been tolerating that well. He is clinically doing quite well. However, his dysphagia had resolved after the stricture was dilated. It has since returned. He has had some urine abnormalities. His U/A is positive. Chest Cat scan also raised concern for a pulmonary infiltrate. l started him on Augmentin to cover both lung and UTI, pending urine culture results. Dr. Mancini proceeded with an EGD on 01/18: Distal esophageal mass lesion consistent with recurrence of adenocarcinoma. Biopsy results: Adenocarcinoma with focal signet ring cells. Note from Dr. Stuart from 02/11: 72-year-old man with significant medical comorbidities now with a recurrence of his esophageal cancer with the plan of undergoing chemotherapy. He was having difficulty eating prior to his scope when he was dilated but this seems improved now. I discussed with the patient and his daughter the options moving forward should he have more difficulty eating again would be a stent placement versus a feeding tube of some kind. We did discuss the option of a stent which I do not think is a great option here specially after being dilated as they tend to move any need to be replaced about every 8 weeks. A PEG tube would be an option now specially that he has been dilated given that the scope could pass into the stomach to place the PEG. We discussed this and the potential timing of this would best be after he comes back from [place] before he starts his chemotherapy to allow for some healing. His daughter wants to discuss this with his other daughters and will call us back but seems like the are leaning towards having a PEG tube placed the last week in February which can be done at [facility] prior to chemotherapy starting again. I did discuss the risks, benefits, and alternatives of this which they understood. I discussed the results with him and his 2 daughters. The G-tube placement was unsuccessful however, Dr. Stuart was able to dilate, esophagus where the mass was. He is still avoiding solid since he has a sore throat after the procedure. He recommended we proceed with surgically placed G-tube. He saw Dr. Fabiano, yesterday. He is scheduled for tube placement on 04/08. Meanwhile he is here to proceed with third-line chemotherapy with the immune checkpoint inhibitor, pembrolizumab. Details of the regimen including potential side effects of hypersensitivity reaction, skin rash, nausea vomiting diarrhea, immune mediated reactions, pancytopenia, need for antibiotics, blood transfusion as well as growth factors were all explained to Him. He understands and is willing to proceed. PLAN: He will undergo chemotherapy teaching, and get started. He will return in 3 weeks for his next dose. He will have 3 cycles and be re-staged with a CT scan. He will have a G-tube placement on 04/08. All his and his daughter's questions were answered to his satisfaction. Thank you, CC: Dr. Hooks. Dr. Stuart. Dr. Mancini. - Time Spent With Patient Time Spent with Patient (in minutes): 30
[2023-03-31 09:31] VITALS: BP 149/78; PULSE 105; RESP 18; TEMP 36.7; O2SAT 99; BMI 22.6
[2023-03-31 09:57] LABS: Alanine Aminotransferase 13 U/L (0-40); Albumin Level 3.6 g/dL (3.5-5.0); Alkaline Phosphatase 200 U/L (39-117); Anion Gap 15 (12-20); Aspartate Amino Transferase 18 U/L (5-37); Bilirubin Total 0.6 mg/dL (0.0-1.0); Blood Urea Nitrogen 9 mg/dL (9-16); Carbon Dioxide 28 mmol/L (22-29); Chloride 101 mmol/L (96-108); Creatinine Clr Calc Pharmacy 84.1; Estimated Glomerular Filt Rate > 60; Glucose Random 164 mg/dL (60-115); Potassium 3.7 mmol/L (3.3-5.1); Sodium 140 mmol/L (135-145); Total Protein 6.8 g/dL (6.5-8.0)
--- NOTE | 2023-03-31 09:58 | MHC.HEMONC ---
brief chemo teach done-per pt request, not new to chemo treatments. side effects, when to call office, schedule, blood results reviewed. follow up with dr rayo. g-tube placement 04/08.
[2023-03-31] MEDS: Acetaminophen 325 MG TABLET 650 MG PO (10:15)
[2023-03-31] MEDS: diphenhydrAMINE HCL 50 MG/ML VIAL 25 MG IVPUSH (10:16)
[2023-03-31] MEDS: Ondansetron ODT 8 MG TAB.RAPDIS TRANSLINGU (10:16)
[2023-03-31] MEDS: Heparin Sodium,Porcine Flush 500 UNIT/5 ML SYRINGE IVFLUSH (10:16)
--- NOTE | 2023-04-05 09:14 | MHC.HEMONC ---
I made [facility] referral for GT teaching as pt will be getting one this Tuesday by Dr Mario. Per it will be a large 5cc balloon wolfe for tube.
--- NOTE | 2023-04-05 15:25 | MHC.HEMONC ---
I faxed referral to [facility] for feeding tube supplies. I included Amber's note from her Nutrition Consult with patient and caregiver. Dr Anna has ordered feedings per her recommendations.
--- NOTE | 2023-04-08 09:07 | MHC.HEMONC ---
I faxed op report from Dr Mario to [facility] and [facility] regarding pt GT placement this morning.
--- NOTE | 2023-04-12 13:56 | MHC.HEMONC ---
Triage call from [facility] to report that Yunior is constipated and straining, and has started taking MOM
[2023-04-19 09:14] VITALS: BP 118/71; PULSE 109; RESP 18; TEMP 36.4; O2SAT 99; BMI 22.1
[2023-04-19 09:33] LABS: MANUAL DIFF FLAG NO
[2023-04-19 09:35] LABS: Basophils Percent Auto 0.4 % (0-2); Eosinophils Absolute Auto 0.3 X10*3/uL (0.0-0.4); Eosinophils Percent Auto 3.4 % (0-4); Hematocrit 39.4 % (42.0-52.0); Hemoglobin 12.7 g/dl (14.0-18.0); Imm Gran Abs Auto 0.05 X10*3/uL (0.00-0.03); Imm Gran Pct Auto 0.6 % (0.0-0.4); Lymphocytes Absolute Auto 3.3 X10*3/uL (1.2-4.9); Mean Corpuscular HGB Conc 32.2 g/dl (31.0-36.0); Mean Corpuscular Hemoglobin 29.3 pg (27.0-33.0); Mean Platelet Volume 10.2 fL (9.4-12.4); Monocytes Absolute Auto 0.8 X10*3/uL (0.1-1.2); Monocytes Percent Auto 8.6 % (2-11); Neutrophils Absolute Auto 4.6 x10*3/uL (2.0-8.3); Platelet Count 404 X10*3/uL (160-400); Red Blood Count 4.33 X10*6/uL (4.60-5.80); Red Cell Distribution Width 14.6 % (11.0-16.0); White Blood Count 9.1 X10*3/uL (4.8-10.8)
[2023-04-19 09:52] LABS: Alanine Aminotransferase 21 U/L (0-40); Albumin Level 3.8 g/dL (3.5-5.0); Alkaline Phosphatase 193 U/L (39-117); Anion Gap 14 (12-20); Aspartate Amino Transferase 23 U/L (5-37); Bilirubin Total 0.7 mg/dL (0.0-1.0); Blood Urea Nitrogen 11 mg/dL (9-16); Carbon Dioxide 25 mmol/L (22-29); Chloride 105 mmol/L (96-108); Estimated Glomerular Filt Rate > 60; Glucose Random 228 mg/dL (60-115); Potassium 4.6 mmol/L (3.3-5.1); Sodium 139 mmol/L (135-145); Total Protein 7.1 g/dL (6.5-8.0)
[2023-04-19] MEDS: Ondansetron ODT 8 MG TAB.RAPDIS TRANSLINGU (10:02)
[2023-04-19] MEDS: Acetaminophen 325 MG TABLET 650 MG PO (10:02)
[2023-04-19] MEDS: diphenhydrAMINE HCL 50 MG/ML VIAL 25 MG IVPUSH (10:03)
[2023-04-19] MEDS: Heparin Sodium,Porcine Flush 500 UNIT/5 ML SYRINGE IVFLUSH (10:03)
--- NOTE | 2023-04-19 11:04 | MHC.HEMONC ---
pt offer no new complaints. tolerating new g tube well with [facility]. spoke to brian in phlebotomy to rescheudle home lab draw every 3 weeks next draw with be
[2023-04-20 05:15] LABS: HBS Num1 73.29 mIU/mL (0-7.99); HBc Num1 8.56 S/CO (0.00-0.79); HBsAGNum1 0.38 S/CO (0.00-0.99); Hepatitis B Surface Antigen Negative (Negative); ~Hepatitis B Surface Antibody REACTIVE (Nonreactive)
[2023-04-20 05:59] LABS: HBc Num2 8.39 S/CO; HBc Num3 8.39 S/CO; Hepatitis B Core Antibody Reactive (Nonreactive)
[2023-05-10 09:00] VITALS: BP 137/73; PULSE 102; RESP 18; TEMP 36.5; O2SAT 99; BMI 22.1
[2023-05-10] MEDS: diphenhydrAMINE HCL 50 MG/ML VIAL 25 MG IVPUSH (09:05)
[2023-05-10] MEDS: Ondansetron ODT 8 MG TAB.RAPDIS TRANSLINGU (09:05)
[2023-05-10] MEDS: Acetaminophen 325 MG TABLET 650 MG PO (09:05)
[2023-05-10] MEDS: Heparin Sodium,Porcine Flush 500 UNIT/5 ML SYRINGE IVFLUSH (09:05)
--- NOTE | 2023-05-25 11:51 | HO.HEMONCSCH ---
Nurse called pt at home, spoke w/ dtr Elizabeth, informed her that pt's tx will be rescheduled from 05/31 at 11:00 to the same day at 13:00, as his tx is shorter than most other txs that day. Nurse rescheduled chemo appt, pt to have labs drawn at home the day before.
[2023-05-31 12:44] VITALS: BP 142/71; PULSE 111; RESP 18; TEMP 37.3; O2SAT 100; BMI 21.8
[2023-05-31] MEDS: Acetaminophen 325 MG TABLET 650 MG PO (12:44)
[2023-05-31] MEDS: Ondansetron ODT 8 MG TAB.RAPDIS TRANSLINGU (12:44)
[2023-05-31] MEDS: Heparin Sodium,Porcine Flush 500 UNIT/5 ML SYRINGE IVFLUSH (12:44)
[2023-05-31] MEDS: diphenhydrAMINE HCL 50 MG/ML VIAL 25 MG IVPUSH (12:44)
--- NOTE | 2023-05-31 13:30 | P.PNHO-ONC_ITS ---
Medical Summary - Medical Summary Date of Service: 05/31/23 Chief complaint: Follow-up for colon carcinoma of the esophagus. 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 Endoscopic ultrasound on May 10: Ulcerated and friable partially obstructing mass extending from the GE junction through the cardia. Mass is circumferential hypoechoic fairly well circumscribe d and rather homogeneous. Penetrates the muscularis propria. Making it a T3 lesion. Numerous small shotty lymph node largest being 7.5 mm not pathologic by size criteria. Tumor extends onto the gastric cardia. Celiac adenopathy could not be assessed. CURRENT THERAPY: Started radiation: July 09 2019. Completed low-dose carboplatin and Taxol weekly 08/13/2019. Now with disease recurrence. Started on systemic chemotherapy with FOLFOX, plus Nivolumab, 12/07. Completed 6 cycles. Single agent nivolumab, # 28 on 01/11/23. Has had disease progression. Started pembrolizumab. Here for cycle 4. Interval History Interval history: This is a pleasant 72 year-old gentleman here for a follow-up visit. He had the G-tube placed on 04/[address] Mario. Since then he has been on tube feedings. He gets them 3 times a day. It is Osmolyte. In addition he is able to take soft diet including fluids. He can not eat mashed potatoes and oatmeal. He can get down some fish. However [facility] did not go down well. With all that his weight is well maintained. His energy level is good. No headache no dizziness. He denies chest pain or trouble breathing. He gets a little bit of a cough at night. He denies any abdominal pain. He gets occasional nausea. He takes Zofran which helps. He gets occasional heartburn/ indigestion, for which he takes omeprazole. Bowels are working without any gross blood in it. He gets constipated. He takes fiber gummies and MOM. He still enjoys a good appetite. His weight is stable. He denies any dysuria or hematuria. He does complain of left flank pain. He takes antidepressants including mirtazapine and lorazepam. He is in good spirits. Rest of the review of systems is unremarkable. He had a great time in [place] with family and friends. RECENT HISTORY: He was in house over the weekend for a UTI. Discharge summary: 72yo M with chronic Guerrero, DM2, HLD, adenoCA of esophagus on chemo, anxie ty/depression presenting with blocked Guerrero + suprapubic pain was admitted for severe sepsis due to complicated UTI. He has a history of Pseudomonas UTI. The Guerrero was replaced. Lactate normalized after fluid resuscitation. He was admitted to the [facility] and given cefepime for 3 days. Urine culture was contaminated. Blood cultures were negative. He was discharged on 5 days of PO levofloxaciiin. INTERIM HISTORY: He had started noticing some dysphagia, mostly to solids. He underwent an upper endoscopy on 01/[address] Mancini. This revealed: Dr. Mancini proceeded with an EGD on 01/18: Distal esophageal mass lesion consistent with recurrence of adenocarcinoma. Biopsy results: Adenocarcinoma with focal signet ring cells. He had an attempted G-tube placement on 03/11. Procedure note: The gastroscope was then inserted through the oropharynx and into the esophagus visualizing the esophagusDown to where the mass is at about 35-36 cm/GE junction. I could not pass the regular gastroscope through this area to get into the stomach. For that reason we decided to try dilation and see if I could do it then.The balloon was then placed across the distal portion of the stricture including the GE junction and under vision was serially dilated from 10-12 mm. There was quite a bit of resistance once we got to 12 mm and we decided to stop at that point. Again I tried with just the gastroscope to get through after dilation at which point I was unsuccessful to push it any further. PREVIOUS HISTORY: He had complained about trouble swallowing. He actually underwent an upper endoscopy on 10/15/[address] Mancini. He had a stricture at 25 cm. That was dilated. After that the rest of the esophagus was clean. Fortunately, pathology came back negative. Since then he was able to swallow without difficulty. CT chest from 12/30/21: Wall thickening of the mid and distal thoracic esophagus and stranding of the surrounding fat. No discrete mass seen. Stable small calcified and noncalcified right pulmonary nodules. New scattered areas of groundglass attenuation in the left lung and denser atelectasis or small infiltrate at the left lung base probably representing an infectious or inflammatory process. Severe coronary artery calcification. He was in house between 06/19 to 06/20/22. Discharge summary: He was admitted for urinary retention and concern for severe leukocytosis. A Guerrero catheter was placed. He was started on finsteride and tamsulosin. He was discharged with Guerrero in place to follow up with Urology. Dr. Obrien recommended prostate medications. To leave the Guerrero in for 4 weeks. Leukocytosis was related to Neulasta. No evidence for infection or sepsis. He was hypotensive so losartan was held. Couple of weeks ago his chemotherapy was held, on account of side effects, neuropathy. He was having difficulty opening cans. He was given only nivolumab. He is feeling much better, with the break. His energy level is better. He had some difficulty swallowing with solids however, even the swallowing function has improved. He was seen by Dr. Bonilla on 07/09. His note: 71-year-old gentleman with multiple significant medical comorbidities here with his 2 daughters to discuss potential options in terms of nutrition. He does feel like he has lost 5-10 lb over the past several months and that he is actually able to get down soft foods but anything more solid seems to get stuck. Actually, the past few weeks he feels that this has improved slightly. We discussed the options of a feeding tube versus stent versus just continuing as he is. I did explain to them that an esophageal stent is only a temporary symptomatic reliever and that he still may be limited to soft foods with the risk of stent migration/pain/erosion. After our discussion they felt that there would be some but may be only minimal improvement with a stent in place and will continue to provide nutrition as it is. I did recommend a soft diet for him mov ing forward. Interim history:. He was in house between 01/17 and 01/19/22. Discharge summary: Presented with burning with urination that started a few days ago. He reported dysuria and frequency but denied hematuria as well as fever, chills, nausea or vomiting.? He is currently undergoing chemotherapy for esophageal cancer at [facility] oncology.? White blood cell count was noted to be elevated at 46,000, lactic acid 2.7, tachycardia and tachypnea.? Urinalysis was positive for UTI, chest x- ray: Negative.? He was given a dose of Rocephin IV fluids in the ER.? Was admitted for further management and treatment of severe sepsis secondary to urinary tract infection. Severe sepsis secondary to urinary tract infection. Treated with IV Rocephin. Resolved Leukocytosis, tachycardia, tachypnea, lactic acidosis. Blood cultures up to 24 hours: Negative. Previous history: At his previous visit, in November,: He tells me that he has had some difficulty swallowing lately. It is mostly to solids. Liquids go down easily. It is a level 6 on 1-10 scale. Sometimes while eating he has a choking sensation. He is mostly taking soft diet including oatmeal, soups and rice. He tries to avoid chicken since it causes acid reflux. Patient was seen here back in mid . He complained that over the past couple of weeks he noted a cough. Would bring up clear sputum. He had been using DayQuil and NyQuil for symptoms. His appetite had declined. He denied obvious dysphagia or odynophagia. He had a CT scan of the chest on 10/08/2021 which revealed: Limited evaluation of pulmonary nodules due to artifact from respiratory alanna on. The 3 mm calcified right upper lobe nodule is stable. Other previously identified pulmonary nodules are not identified. Interval increase in wall thickening of the distal thoracic esophagus, GE junction and proximal stomach compared to January 2020 exam. On November 17, he underwent an upper endoscopy by Dr. Mancini which revealed: Esophagus: There was ulceration and friability with heaped up mucosa beginning at about 34 cm and extending to the EG junction at 36 cm and into the stomach for approximately 1 cm to 2 cm below this. Biopsies were obtained from the ab normal mucosa. The mucosa was ulcerated and friable with heaped up margins suspicious for recurrent tumor as opposed to just changes from his previous chemoradiation treatments. The scope was easily passed into the stomach with minimal narrowing at the EG junction. Pathology revealed: Superficial fragments of adenocarcinoma, poorly differentiated from EG junction mass, 36 cm, 34 cm. Review of Systems - Constitutional Reports no additional constitutional complaints - Eyes Reports no additional eye complaints - ENT Reports no additional ear, nose, mouth, and throat complaints - Cardiovascular Reports no additional cardiovascular complaints - Respiratory Reports no additional respiratory complaints - Gastrointestinal Reports no additional gastrointestinal complaints - Genitourinary Genitourinary: Reports no additional male genitourinary complaints - Musculoskeletal Reports no additional musculoskeletal complaints - Integumentary/Breasts Skin/Breast: Reports no additional skin complaints - Neurologic Reports no additional neurologic complaints, Denies behavioral changes, Denies weakness - Psychiatric Reports no additional psychiatric complaints - Endocrine Reports no additional endocrine complaints - Hematologic/Lymphatic Reports no additional hematologic/lymphatic complaints - Allergic/Immunologic Reports no additional allergic/immunologic complaints PMFSH Medical History: Medical History (Last Reviewed 04/18/23 @ 09:05 by PRAMOD Dorsey) Anxiety Benign essential hypertension Constipation Depression Diabetes type 2, uncontrolled Gastrostomy tube in place Onset Date: 04/08/23 HLD (hyperlipidemia) Keratotic lesion jail (current) use of insulin Port-A-Cath in place Suprapubic catheter Vitamin D deficiency Functional capacity: wheelchair bound Family History: Family History (Last Reviewed 04/18/23 @ 09:05 by PRAMOD Dorsey) Father Diabetes Hypertension Mother No problems noted. Surgical History: Surgical History (Last Reviewed 04/18/23 @ 09:05 by PRAMOD Dorsey) Adenocarcinoma of cardio-esophageal junction Onset Date: ~2018 History of atherectomy Onset Date: ~2018 History of esophagogastroduodenoscopy History of left below knee amputation Onset Date: ~2019 Social History: Social History (Last Reviewed 04/18/23 @ 09:05 by PRAMOD Dorsey) Living Situation History: Household Members: Family Housing: House Do you presently have visiting nurse or other home services: No Tobacco History: Patient Tobacco Use Status: Never used Tobacco e-Cigarette/Vaping Use: Never Used Second Hand Smoke Exposure: No Advance Directives: Advance Directives Date on File: 02/03/22 Nutrition Assessment: Patient : No Occupation Assessmet: service: No Current occupational status: retired Current occupational status: disabled Oncology Screenings - ECOG Performance Status ECOG Performance Status: 2 Home Medications and Allergies Current Medications: Current Medications Acetaminophen (Acetaminophen 325 Mg Tablet) 650 mg PO ONCE COURTNEY Stop: 05/31/23 23:59 Last Admin: 05/31/23 12:44 Dose: 650 mg Diphenhydramine HCl (Diphenhydramine Hcl 50 Mg/Ml Vial) 25 mg IVPUSH ONCE COURTNEY Stop: 05/31/23 23:59 Last Admin: 05/31/23 12:44 Dose: 25 mg Heparin Sodium (Porcine) (Heparin Sodium,Porcine Flush 500 Unit/5 Ml Syringe) 500 unit IVFLUSH ONCE COURTNEY Stop: 05/31/23 23:59 Last Admin: 05/31/23 12:44 Dose: 500 unit Pembrolizumab 200 mg/ Sodium (Chloride) 58 mls @ 116 mls/hr IV ONCE COURTNEY Stop: 05/31/23 23:59 Ondansetron HCl (Ondansetron Odt 8 Mg Tab.Rapdis) 8 mg TRANSLINGU ONCE COURTNEY Stop: 05/31/23 23:59 Last Admin: 05/31/23 12:44 Dose: 8 mg Home Medications Medication Instructions Recorded Confirmed Type blood sugar diagnostic (FreeStyle 06/19/22 03/15/23 History Lite Strips) metoprolol succinate 25 mg 0.5 tab PO QPM 06/19/22 03/27/23 History tablet,extended release 24 hr pen needle, diabetic 32 gauge x 06/19/22 03/15/23 History (Pentips) ondansetron 8 mg disintegrating 8 mg PO Q8H PRN nausea 03/27/23 03/27/23 History tablet insulin aspar prot-insulin aspart See Rx Instructions subcut BID 03/30/23 History 100 unit/mL (70-30) subcutaneous pen (Novolog Mix 70-30FlexPen U-100) Allergies Allergy/AdvReac Type Severity Reaction Status Date / Time No Known Allergies Allergy Verified 04/18/23 09:04 Exam Vital signs: Vital Signs Temp 99.2 F 05/31/23 12:44 Pulse 111 H 05/31/23 12:44 Resp 18 05/31/23 12:44 BP 142/71 H 05/31/23 12:44 Pulse Ox 100 05/31/23 12:44 O2 Del Method Room Air 05/31/23 12:44 Intake & Output 05/30/23 05/31/23 05/31/23 18:59 06:59 18:59 Other: Weight 65.1 kg [place] Weight in Grams [id number] Weight 65.1 kg BMI result Body Mass Index 21.8 - Constitutional Present: no acute distress - Routine HEENT Exam Head: Present: normal inspection Eye: Present: normal appearance ENT: Present: mucous membranes moist - Routine Neck Exam Present: full ROM - Routine Respiratory Exam Present: CTAB - Routine Cardiovascular Exam Cardiovascular: Present: RRR, S1, S2 - Routine Abdominal Exam Present: soft, nontender - Routine Extremities Exam Present: nontender - Routine Back/Spine/Pelvis Exam Back/Spine: Present: full ROM - Routine Skin Exam Present: intact - Routine Neurological Exam Present: alert, oriented X3 - Routine Psychiatric Exam Present: normal affect Data - Labs CBC & Chem 7: 04/19/23 09:21 04/19/23 09:21 Assessment and Plan Patient Active problem list reviewed?: Yes (1) Carcinoma of thoracic esophagus Status: Inactive Assessment and plan: This is a pleasant 71 year-old gentleman diagnosed with Carcinoma of the Esophagus, back in summer of 2018. Upper endoscopy revealed a 4 cm mass extending from the EG junction to 1-2 cm below the EG junction. Pathology: Superficial fragments of adenocarcinoma, moderately differentiated, arising in a background of Mcintyre's esophagus. HER2: 0. Endoscopic ultrasound May 10 2019: T3, N0 lesion. PET scan revealed disease confined to the esophagus. He underwent neoadjuvant chemoradiation. He received carboplatin and Taxol weekly. PET scan on 10/04/2019 showed: Mild improvement in uptake in the distal esophagus and fundus of the stomach. C6 cervical vertebra showed uptake question of a lesion. Stable small right lower lung nodule. No uptake. Bone scan from 10/22/19 revealed: Mild abnormalities in several ribs likely representing chronic rib fractures an ongoing bone remodeling. Mild on specific abnormalities is all related to arthritis. He saw Dr. Stuart. He did offer surgical resection however patient was concerned about the risks involved and so declined. EGD from 12/07/2019: EG junction was located at 39 cm. There were 2 areas of ulceration 1 measuring 10 mm and 1 measuring 5 mm at the EG junction. The previous tumor was not seen. No stricture. Pathology: GE junction mucosa with moderate acute and chronic inflammation, mucin and detached fragments of granulation tissue consistent with ulcer and esophagitis, negative for dysplasia or malignancy. CT scan from 01/22/20 revealed: Stable pulmonary nodules compared to 03/15 019. He had an upper endoscopy by Dr. Mancini in November of 2019 which revealed: The EG junction was located at 39 cm. There were 2 areas of ulceration, one measuring approximately 10 mm and one measuring approximately 5 mm at the EG junction. The previous tumor was not seen. The scope passed easily into the stomach. There was no stricture. Pathology: A. GE junction, biopsies: Gastroesophageal junctional mucosa with moderate acute and chronic inflammation, mucin and detached fragments of granulation tissue consistent with ulcer and esophagitis; negative for intestinal m etaplasia; negative for dysplasia or malignancy. He has been feeling reasonably well. He denies any further dysphagia. However lately he has had a cough with sputum. His appetite is not that good and he has been losing weight. He had a CT scan of the chest on 10/08/2021 which revealed: Limited evaluation of pulmonary nodules due to artifact from respiratory motion. The 3 mm calcified right upper lobe nodule is stable. Other previously identified pulmonary nodules are not identified. Interval increase in wall thickening of the distal thoracic esophagus, GE junction and proximal stomach compared to January 2020 exam. I referred him to Dr. Mancini, who proceeded with an upper endoscopy, on 11/17 which revealed: On November 17, he underwent an upper endoscopy by Dr. Mancini which revealed: Esophagus: There was ulceration and friability with heaped up mucosa beginning at about 34 cm and extending to the EG junction at 36 cm and into the stomach for approximately 1 cm to 2 cm below this. Biopsies were obtained from the abnormal mucosa. The mucosa was ulcerated and friable with heaped up margins suspicious for recurrent tumor as opposed to just changes from his previous chemoradiation treatments. The scope was easily passed into the stomach with minimal narrowing at the EG junction. Pathology revealed: Superficial fragments of adenocarcinoma, poorly differentiated from EG junction mass, 36 cm, 34 cm. HER2/April: Negative. CEA level: 12.30. I shared the results with him and his daughters. I offered them systemic chemotherapy with FOLFOX/XELOX plus/minus, nivolumab based chemotherapy.(based upon the PDL1 status.) They are going to discuss it with the family and get back to me about their decision. In the meantime will have him consult with Dr. Stuart, to get his opinion and to see if a stent would be feasible. He saw him a couple of months ago. That time, he did not feel a stent was feasible. I proceeded with PDL1 testing. This came back positive for PDL1 of 25. There were given written information about the chemotherapy regimens. Details of the regimen including potential side effects of hypersensitivity reaction, skin rash, arthralgias myalgias, nausea vomiting diarrhea, peripheral neuropathy, renal toxicity, hepatotoxicity, risk of infection, need for antibiotic, blood transfusion as well as growth factors were addressed with him. He understood and was willing to proceed. He had a Port-A-Cath placed to facilitate the chemotherapy. He started treatment 12/07. He is tolerating it very well. His symptoms of dysphagia have resolved. He is able to eat well. Database: CBC from 02/15: WBC 4, HGB 11.3, HCT 36.1, PLT 176. CMP from 02/15: Lytes WNL, BUN 18, MEDIA SPECIALIST 0.83, glucose 131. Calcium 9.2, albumin 3.5. LFTs: 0.7/180/34/29. CEA level: 5.80. CT scan of the chest and abdomen from 02/10, revealed: New right lower lobe nodules. Interval increase in wall thickening of the distal thoracic esophagus and GE junction. Wall thickening of the distal thoracic esophagus GE junction increased from previous exam. Thickened trabeculated bladder wall. Enlarged prostate gland. Abnormal soft tissue at the base of the bladder similar to previous exam probably related to lobulated contour of the prostate gland. New or increased gallbladder fundus wall thickening. Database: Labs from 03/29: CBC: WBC 9.9, HGB 11, HCT 34.8, MCV 89.2, PLT 95. CMP: Lytes WNL, glucose 154, Hermelindo 9.1, alb 3. LFTs: 0.7/243/31/21. CEA: 5.80. CBC from 05/03: WBC 7.6, HGB 10.9, HCT 34.1, PLT 92. CT chest from 04/16: Diffuse mural thickening involving mid and distal esophagus similar to previous study. There is mild wall thickening of the GE junction as well. There are several calcified and noncalcified nodules unchanged to the previous study. There are no new nodules. There is no abnormal mediastinal or axillary lymphadenopathy. He was in house between 06/19 to 06/20. With urinary retention. He saw Urology. Guerrero was placed. Due to ongoing neuropathy and treatment related side effects, he was treated with nivolumab with his last cycle, cycle 7 day 1. The treatment does appear to be working. I had a discussion with him and his daughter. He had a PET scan on 07/20, for restaging, it revealed: 1. No metabolically active disease is present. Note is made of persistent stable metabolically inactive nonspecific circumferential thickening within the distal thoracic esophagus extending into the GE junction region, may represent changes secondary to prior treatment, suboptimal distention /physiologic changes or combination thereof. Direct visualization may be considered if local disease recurrence is clinically suspected. 2. Stable sub-5 mm noncalcified right upper and right lower lung nodules, unchanged since 10/04/2019. 3. Stable sub-5 mm focal area of sclerosis involving L2 vertebral body, unchanged since 10/04/2019, without any concordant increased metabolic activity. 4. Diffuse atherosclerotic disease including coronary artery calcifications, without aneurysm, unchanged. 5. Interval placement of a Guerrero's catheter, appear in good position. CT chest from 12/30/22: Wall thickening of the mid and distal thoracic esophagus and stranding of the surrounding fat. No discrete mass seen. Stable small calcified and noncalcified right pulmonary nodules. New scattered areas of groundglass attenuation in the left lung and denser atelectasis or small infiltrate at the left lung base probably representing an infectious or inflammatory process. Severe coronary artery calcification. In view of the toxicity and stable disease his regimen was switched over to maintenance nivolumab. He has been tolerating that well. He is clinically doing quite well. However, his dysphagia had resolved after the stricture was dilated. It has since returned. He has had some urine abnormalities. His U/A is positive. Chest Cat scan also raised concern for a pulmonary infiltrate. l started him on Augmentin to cover both lung and UTI, pending urine culture results. Dr. Mancini proceeded with an EGD on 01/18: Distal esophageal mass lesion consistent with recurrence of adenocarcinoma. Biopsy results: Adenocarcinoma with focal signet ring cells. Note from Dr. Stuart from 02/11: 72-year-old man with significant medical comorbidities now with a recurrence of his esophageal cancer with the plan of undergoing chemotherapy. He was having difficulty eating prior to his scope when he was dilated but this seems improved now. I discussed with the patient and his daughter the options moving forward should he have more difficulty eating again would be a stent placement versus a feeding tube of some kind. We did discuss the option of a stent which I do not think is a great option here specially after being dilated as they tend to move any need to be replaced about every 8 weeks. A PEG tube would be an option now specially that he has been dilated given that the scope could pass into the stomach to place the PEG. We discussed this and the potential timing of this would best be after he comes back from [place] before he starts his chemotherapy to allow for some healing. His daughter wants to discuss this with his other daughters and will call us back but seems like the are leaning towards having a PEG tube placed the last week in February which can be done at [facility] prior to chemotherapy starting again. I did discuss the risks, benefits, and alternatives of this which they understood. I discussed the results with him and his 2 daughters. The G-tube placement was unsuccessful however, Dr. Stuart was able to dilate, esophagus where the mass was. He is still avoiding solid since he has a sore throat after the procedure. He recommended we proceed with surgically placed G-tube. CT scan of the abdomen from 03/26 revealed: 1. Thick-walled appearance of the urinary bladder, which could be secondary to cystitis in the proper clinical setting. Correlation with urinalysis recommended. Hyperdense material in the dependent bladder could reflect calcium or possibly excreted recently administered IV contrast. 2. Redemonstrated thick-walled appearance of the distal esophagus, in patient with known esophageal cancer. He saw Dr. Mario on 03/31. He had the feeding tube placement on 04/08. Meanwhile he has been started on third-line chemotherapy with the immune checkpoint inhibitor, pembrolizumab. Details of the regimen including potential side effects of hypersensitivity reaction, skin rash, nausea vomiting diarrhea, immune mediated reactions, pancytopenia, need for antibiotics, blood transfusion as well as growth factors were all explained to Him. He understood and was willing to proceed. He has so far been tolerating it well. PLAN: He will receive his 4th dose today. He will return in 3 weeks for his next dose. Will request GI to take a look endoscopically to gauge his response. Also to see if any dilatation is indicated. He will have another couple of cycles and be re-staged with a CT scan. All his and his daughter's questions were answered to his satisfaction. Thank you, CC: Dr. Hooks. Dr. Stuart. Dr. Mancini. - Time Spent With Patient Time Spent with Patient (in minutes): 30
--- NOTE | 2023-05-31 14:20 | MHC.HEMONC ---
pt offer no new complaint, report feeling good. tolerated treatment well. f/u with dr rayo. appointment with dr pablo was made for 09/12 to schedule upper endo
--- NOTE | 2023-06-14 09:14 | MHC.HEMONC ---
Pt's dtr, Ada, called, said she has been having difficulties getting the company to send more piston syringes for pt's bolus tube feedings. Nurse found copy of enteral feeding order, called [facility], left detailed VM for enteralfeeding and supplies dept, asking for CB r/t supplying piston syringes for tube-feeding, left CB#. Nurse provided pt's dtr w/ 2 piston syringes.
--- NOTE | 2023-06-16 16:23 | MHC.HEMONC ---
Osiris from [facility] sent new fax order for Enteral feedings, piston syringes and supplies. Dr Anna signed and order faxed back to [facility] from [facility]. [facility] direct number is [phone]. This nurse called Ada and updated her and notified her that she has to call [employer] or the main number when they need supplies. no other questions.
[2023-06-21 13:05] VITALS: BP 132/72; PULSE 118; RESP 18; TEMP 36.4; O2SAT 98; BMI 20.9
[2023-06-21] MEDS: Ondansetron ODT 8 MG TAB.RAPDIS TRANSLINGU (13:23)
[2023-06-21] MEDS: Acetaminophen 325 MG TABLET 650 MG PO (13:23)
[2023-06-21] MEDS: diphenhydrAMINE HCL 50 MG/ML VIAL 25 MG IVPUSH (13:25)
[2023-06-21] MEDS: Heparin Sodium,Porcine Flush 500 UNIT/5 ML SYRINGE IVFLUSH (13:28)
--- NOTE | 2023-06-21 14:03 | MHC.HEMONC ---
Pt here for C5D1 Pembrolizumab. Labs drawn yesterday at [id number] to receive treatment today. Pt states he continues with slight nausea at times-states zofran helps with nausea. States continues with fatigue. Pre medicated with tylenol, benadryl, zofran. Pembrolizumab given as ordered-tolerated well. Port flushed with heparin and de accessed. Next appointment scheduled. Discharge packet packet given. Instructed to call with any questions or concerns-verbalizes understanding of information given
--- NOTE | 2023-07-08 09:45 | MHC.HEMONC ---
To reorder GT supplies - family needs to [phone] ([facility])
[2023-07-12 13:30] VITALS: BP 125/75; PULSE 118; RESP 17; TEMP 36.8; O2SAT 97; BMI 19.8
[2023-07-12] MEDS: diphenhydrAMINE HCL 50 MG/ML VIAL 25 MG IVPUSH (14:31)
[2023-07-12] MEDS: Acetaminophen 325 MG TABLET 650 MG PO (14:31)
[2023-07-12] MEDS: Ondansetron ODT 8 MG TAB.RAPDIS TRANSLINGU (14:31)
[2023-07-12 14:32] LABS: Appearance Urine Clear; Color Urine Yellow; Glucose Urine UA >=1000 mg/dL (Negative); Leukocyte Esterase Urine Moderate (2+) (Negative); Nitrite Urine Negative (Negative); PH 5.5 (5.0-9.0); Specific Gravity - Urine >= 1.030 (1.005-1.025); UMIC TRIGGER UACC YES; Urine Blood Negative (Negative); Urine Ketones 15 mg/dL (Negative); Urine Protein Negative (Neg-Trace)
[2023-07-12] MEDS: Heparin Sodium,Porcine Flush 500 UNIT/5 ML SYRINGE IVFLUSH (14:32)
[2023-07-12 14:34] LABS: Bacteria Urine Trace (None Seen); RBC Urine 0-2 /HPF (0-2); Squamous Epithelial Cell Urine 0-2 /HPF (0-2); UACC Culture Trigger YES; WBC Urine 21-50 /HPF (0-5)
--- NOTE | 2023-07-12 16:15 | MHC.HEMONC ---
Pt here for C6 Keytruda. Pt arrives in whel chair accompanied by daughter. Daughter reports urinary burning sensation, has catheter. Urine sent. Increased difficulty managing secretions, expectorating large amounts of saliva. Worse at night. This nurse observed pt expectorate approx Dixi cup full of clear secretions. Also pt not really taking much orally. Pt relaying on tube feedings but family does not know how much to give daily. Kendra will notify Dietary for consultation. Dr Anna aware of pt concerns and all interventions approved. Port to right chest accessed. No blood return. Dr anna aware and port check ordered. #24 angio started in right lower arm, good blood return. Pre meds given. Oral meds crushed and given via g-tube per Dr anna. Treatment infused. Pt to go to IR for port check after treatment. IR notified and can take pt right after his tx. Pt toll tx well. IV removed. Port left accessed for IR to use. Pt departed to IR.
--- NOTE | 2023-07-12 17:00 | PM.HEMONCPN ---
Medical Summary - Medical Summary Date of Service: 07/12/23 Chief complaint: Follow-up for colon carcinoma of the esophagus. 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 Endoscopic ultrasound on May 10: Ulcerated and friable partially obstructing mass extending from the GE junction through the cardia. Mass is circumferential hypoechoic fairly well circumscribed and rather homogeneous. Penetrates the muscularis propria. Making it a T3 lesion. Numerous small shotty lymph node largest being 7.5 mm not pathologic by size criteria. Tumor extends onto the gastric cardia. Celiac adenopathy could not be assessed. CURRENT THERAPY: Started radiation: July 09 2019. Completed low-dose carboplatin and Taxol weekly 08/13/2019. Now with disease recurrence. Started on systemic chemotherapy with FOLFOX, plus Nivolumab, 12/07. Completed 6 cycles. Single agent nivolumab, # 28 on 01/11/23. Has had disease progression. Started pembrolizumab. Here for cycle 6. Interval History Interval history: This is a pleasant 72 year-old gentleman here for a follow-up visit. He is not feeling too well. Over the past few weeks he has noted some collection of the saliva in his throat. That happens mostly at night. Sometimes it tools there and he ends up spitting up. He is not swallowing that well. Most of his nourishment is no being given through the G-tube. He has lost some weight, down to 62.5 from 65 kg on 05/31. His energy level is rather low. No headache no dizziness. He denies chest pain or trouble breathing. He gets a little cough at night. He denies any abdominal pain. He gets occasional nausea. He takes Zofran which helps. He gets occasional heartburn/indigestion. He takes omeprazole. Bowels are working without any gross blood in it. He gets constipated. He takes fiber gummies and MOM. He denies any dysuria or hematuria. He does complain of left flank pain. He takes antidepressants including mirtazapine and lorazepam. He is in good spirits. Rest of the review of systems is unremarkable. RECENT HISTORY: He had the G-tube placed on 04/[address] Mario. Since then he has been on tube feedings. He gets them 3 times a day. It is Osmolyte. In addition he is able to take soft diet including fluids. He can not eat mashed potatoes and oatmeal. He can get down some fish. However [facility] did not go down well. He had a great time in [place] with family and friends. He was in house over the weekend for a UTI. Discharge summary: 72yo M with chronic Guerrero, DM2, HLD, adenoCA of esophagus on chemo, anxiety/depression presenting with blocked Guerrero + suprapubic pain was admitted for severe sepsis due to complicated UTI. He has a history of Pseudomonas UTI. The Guerrero was replaced. Lactate normalized after fluid resuscitation. [place] [facility] [place] given cefepime for 3 days. Urine culture was contaminated. Blood cultures were negative. He was discharged on 5 days of PO levofloxaciiin. INTERIM HISTORY: He had started noticing some dysphagia, mostly to solids. He underwent an upper endoscopy on 01/[address] Mancini. This revealed: Dr. Mancini proceeded with an EGD on 01/18: Distal esophageal mass lesion consistent with recurrence of adenocarcinoma. Biopsy results: Adenocarcinoma with focal signet ring cells. He had an attempted G-tube placement on 03/11. Procedure note: The gastroscope was then inserted through the oropharynx and into the esophagus visualizing the esophagusDown to where the mass is at about 35-36 cm/GE junction. I could not pass the regular gastroscope through this area to get into the stomach. For that reason we decided to try dilation and see if I could do it then.The balloon was then placed across the distal portion of the stricture including the GE junction and under vision was serially dilated from 10-12 mm. There was quite a bit of resistance once we got to 12 mm and we decided to stop at that point. Again I tried with just the gastroscope to get through after dilation at which point I was unsuccessful to push it any further. PREVIOUS HISTORY: He had complained about trouble swallowing. He actually underwent an upper endoscopy on 10/15/[address] Mancini. He had a stricture at 25 cm. That was dilated. After that the rest of the esophagus was clean. Fortunately, pathology came back negative. Since then he was able to swallow without difficulty. CT chest from 12/30/21: Wall thickening of the mid and distal thoracic esophagus and stranding of the surrounding fat. No discrete mass seen. Stable small calcified and noncalcified right pulmonary nodules. New scattered areas of groundglass attenuation in the left lung and denser atelectasis or small infiltrate at the left lung base probably representing an infectious or inflammatory process. Severe coronary artery calcification. He was in house between 06/19 to 06/20/22. Discharge summary: He was admitted for urinary retention and concern for severe leukocytosis. A Guerrero catheter was placed. He was started on finsteride and tamsulosin. He was discharged with Guerrero in place to follow up with Urology. Dr. Obrien recommended prostate medications. To leave the Guerrero in for 4 weeks. Leukocytosis was related to Neulasta. No evidence for infection or sepsis. He was hypotensive so losartan was held. Couple of weeks ago his chemotherapy was held, on account of side effects, neuropathy. He was having difficulty opening cans. He was given only nivolumab. He is feeling much better, with the break. His energy level is better. He had some difficulty swallowing with solids however, even the swallowing function has improved. He was seen by Dr. Bonilla on 07/09. His note: 71-year-old gentleman with multiple significant medical comorbidities here with his 2 daughters to discuss potential options in terms of nutrition. He does feel like he has lost 5-10 lb over the past several months and that he is actually able to get down soft foods but anything more solid seems to get stuck. Actually, the past few weeks he feels that this has improved slightly. We discussed the options of a feeding tube versus stent versus just continuing as he is. I did explain to them that an esophageal stent is only a temporary symptomatic reliever and that he still may be limited to soft foods with the risk of stent migration/pain/erosion. After our discussion they felt that there would be some but may be only minimal improvement with a stent in place and will continue to provide nutrition as it is. I did recommend a soft diet for him moving forward. Interim history:. He was in house between 01/17 and 01/19/22. Discharge summary: Presented with burning with urination that started a few days ago. He reported dysuria and frequency but denied hematuria as well as fever, chills, nausea or vomiting.? He is currently undergoing [place] [facility] White blood cell count was noted to be elevated at 46,000, lactic acid 2.7, tachycardia and tachypnea.? Urinalysis was positive for UTI, chest x-ray: Negative.? He was given a dose of Rocephin IV fluids in the ER.? Was admitted for further management and treatment of severe sepsis secondary to urinary tract infection. Severe sepsis secondary to urinary tract infection. Treated with IV Rocephin. Resolved Leukocytosis, tachycardia, tachypnea, lactic acidosis. Blood cultures up to 24 hours: Negative. Previous history: At his previous visit, in November,: He tells me that he has had some difficulty swallowing lately. It is mostly to solids. Liquids go down easily. It is a level 6 on 1-10 scale. Sometimes while eating he has a choking sensation. He is mostly taking soft diet including oatmeal, soups and rice. He tries to avoid chicken since it causes acid reflux. Patient was seen here back in mid . He complained that over the past couple of weeks he noted a cough. Would bring up clear sputum. He had been using DayQuil and NyQuil for symptoms. His appetite had declined. He denied obvious dysphagia or odynophagia. He had a CT scan of the chest on 10/08/2021 which revealed: Limited evaluation of pulmonary nodules due to artifact from respiratory motion. The 3 mm calcified right upper lobe nodule is stable. Other previously identified pulmonary nodules are not identified. Interval increase in wall thickening of the distal thoracic esophagus, GE junction and proximal stomach compared to January 2020 exam. On November 17, he underwent an upper endoscopy by Dr. Mancini which revealed: Esophagus: There was ulceration and friability with heaped up mucosa beginning at about 34 cm and extending to the EG junction at 36 cm and into the stomach for approximately 1 cm to 2 cm below this. Biopsies were obtained from the abnormal mucosa. The mucosa was ulcerated and friable with heaped up margins suspicious for recurrent tumor as opposed to just changes from his previous chemoradiation treatments. The scope was easily passed into the stomach with minimal narrowing at the EG junction. Pathology revealed: Superficial fragments of adenocarcinoma, poorly differentiated from EG junction mass, 36 cm, 34 cm. Review of Systems - Constitutional Reports system reviewed and no additional complaints, except as documented, Reports lack of energy, Reports malaise, Reports weakness, Reports weight loss, Denies body ache(s), Denies fever(s), Denies headache(s), Denies weight gain - Eyes Reports system reviewed and no additional complaints, except as documented - ENT Reports system reviewed and no additional complaints, except as documented - Cardiovascular Reports system reviewed and no additional complaints, except as documented - Respiratory Reports no additional respiratory complaints - Gastrointestinal Reports system reviewed and no additional complaints, except as documented - Genitourinary Genitourinary: Reports no additional male genitourinary complaints - Musculoskeletal Reports system reviewed and no additional complaints, except as documented - Integumentary/Breasts Skin/Breast: Reports no additional skin complaints - Neurologic Reports system reviewed and no additional complaints, except as documented, Denies behavioral changes, Denies weakness - Psychiatric Reports system reviewed and no additional complaints, except as documented - Endocrine Reports no additional endocrine complaints - Hematologic/Lymphatic Reports system reviewed and no additional complaints, except as documented - Allergic/Immunologic Reports system reviewed and no additional complaints, except as documented PMFSH Medical History: Medical History (Last Reviewed 07/21/23 @ 20:22 by Hope Norman MD) Anxiety Benign essential hypertension Constipation Depression Diabetes type 2, uncontrolled Gastrostomy tube in place Onset Date: 04/08/23 HLD (hyperlipidemia) 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 Surgical History: Surgical History (Last Reviewed 07/21/23 @ 20:22 by Hope Norman MD) Adenocarcinoma of cardio-esophageal junction Onset Date: ~2019 History of atherectomy Onset Date: ~2019 History of esophagogastroduodenoscopy History of left below knee amputation Onset Date: ~2019 Social History: Social History (Last Reviewed 07/21/23 @ 20:22 by Hope Norman MD) Living Situation History: Household Members: Family Housing: House Do you presently have visiting nurse or other home services: No Tobacco History: Patient Tobacco Use Status: Never used Tobacco e-Cigarette/Vaping Use: Never Used Second Hand Smoke Exposure: No Advance Directives: Advance Directives Date on File: 02/03/22 Occupation Assessmet: service: No Current occupational status: retired Current occupational status: disabled Oncology Screenings - ECOG Performance Status ECOG Performance Status: 2 Home Medications and Allergies Current Medications: Current Medications Acetaminophen (Acetaminophen 325 Mg Tablet) 650 mg PO ONCE COURTNEY Stop: 07/12/23 23:59 Last Admin: 07/12/23 14:31 Dose: 650 mg Diphenhydramine HCl (Diphenhydramine Hcl 50 Mg/Ml Vial) 25 mg IVPUSH ONCE COURTNEY Stop: 07/12/23 23:59 Last Admin: 07/12/23 14:31 Dose: 25 mg Heparin Sodium (Porcine) (Heparin Sodium,Porcine Flush 500 Unit/5 Ml Syringe) 500 unit IVFLUSH ONCE COURTNEY Stop: 07/12/23 23:59 Last Admin: 07/12/23 14:32 Dose: 500 unit Pembrolizumab 200 mg/ Sodium (Chloride) 58 mls @ 116 mls/hr IV ONCE COURTNEY Stop: 07/12/23 23:59 Last Infusion: 07/12/23 15:44 Dose: Infused Ondansetron HCl (Ondansetron Odt 8 Mg Tab.Rapdis) 8 mg TRANSLINGU ONCE COURTNEY Stop: 07/12/23 23:59 Last Admin: 07/12/23 14:31 Dose: 8 mg Home Medications Medication Instructions Recorded Confirmed Type blood sugar diagnostic (FreeStyle 06/19/22 03/15/23 History Lite Strips) pen needle, diabetic 32 gauge x 06/19/22 03/15/23 History (Pentips) ondansetron 8 mg disintegrating 8 mg PO Q8H PRN nausea 03/27/23 03/27/23 History tablet insulin aspar prot-insulin aspart See Rx Instructions subcut BID 03/30/23 History 100 unit/mL (70-30) subcutaneous pen (Novolog Mix 70-30FlexPen U-100) Allergies Allergy/AdvReac Type Severity Reaction Status Date / Time No Known Allergies Allergy Verified 04/18/23 09:04 Exam Vital signs: Vital Signs Temp 98.2 F 07/12/23 13:30 Pulse 118 H 07/12/23 13:30 Resp 17 07/12/23 13:30 BP 125/75 07/12/23 13:30 Pulse Ox 97 07/12/23 13:30 O2 Del Method Room Air 07/12/23 13:30 Intake & Output 07/11/23 07/12/23 07/12/23 18:59 06:59 18:59 Intake Total Balance Intake: Intake, IV Amount Pembrolizumab 200 mg In 0.9 % Sodium Chloride 50 ml @ 116 mls /hr IV ONCE COURTNEY Rx#:[id number] Other: Weight 59.2 kg [place] Weight in Grams 67162 Weight 59.2 kg BMI result Body Mass Index 19.8 - Constitutional Present: no acute distress - Routine HEENT Exam Head: Present: normal inspection Eye: Present: normal appearance ENT: Present: mucous membranes moist - Routine Neck Exam Present: full ROM - Routine Respiratory Exam Present: CTAB - Routine Cardiovascular Exam Cardiovascular: Present: RRR, S1, S2 - Routine Abdominal Exam Present: soft, nontender - Routine Extremities Exam Present: nontender - Routine Back/Spine/Pelvis Exam Back/Spine: Present: full ROM - Routine Skin Exam Present: intact - Routine Neurological Exam Present: alert, oriented X3 - Routine Psychiatric Exam Present: normal affect Data - Labs CBC & Chem 7: 04/19/23 09:21 04/19/23 09:21 Assessment and Plan Patient Active problem list reviewed?: Yes (1) Carcinoma of thoracic esophagus Status: Inactive Assessment and plan: This is a pleasant 71 year-old gentleman diagnosed with Carcinoma of the Esophagus, back in summer. Upper endoscopy revealed a 4 cm mass extending from the EG junction to 1-2 cm below the EG junction. Pathology: Superficial fragments of adenocarcinoma, moderately differentiated, arising in a background of Mcintyre's esophagus. HER2: 0. Endoscopic ultrasound May 10 2019: T3, N0 lesion. PET scan revealed disease confined to the esophagus. He underwent neoadjuvant chemoradiation. He received carboplatin and Taxol weekly. PET scan on 10/04/2019 showed: Mild improvement in uptake in the distal esophagus and fundus of the stomach. C6 cervical vertebra showed uptake question of a lesion. Stable small right lower lung nodule. No uptake. Bone scan from 10/22/19 revealed: Mild abnormalities in several ribs likely representing chronic rib fractures an ongoing bone remodeling. Mild on specific abnormalities is all related to arthritis. He saw Dr. Stuart. He did offer surgical resection however patient was concerned about the risks involved and so declined. EGD from 12/07/2019: EG junction was located at 39 cm. There were 2 areas of ulceration 1 measuring 10 mm and 1 measuring 5 mm at the EG junction. The previous tumor was not seen. No stricture. Pathology: GE junction mucosa with moderate acute and chronic inflammation, mucin and detached fragments of granulation tissue consistent with ulcer and esophagitis, negative for dysplasia or malignancy. CT scan from 01/22/20 revealed: Stable pulmonary nodules compared to 03/15 019. He had an upper endoscopy by Dr. Mancini in November of 2019 which revealed: The EG junction was located at 39 cm. There were 2 areas of ulceration, one measuring approximately 10 mm and one measuring approximately 5 mm at the EG junction. The previous tumor was not seen. The scope passed easily into the stomach. There was no stricture. Pathology: A. GE junction, biopsies: Gastroesophageal junctional mucosa with moderate acute and chronic inflammation, mucin and detached fragments of granulation tissue consistent with ulcer and esophagitis; negative for intestinal metaplasia; negative for dysplasia or malignancy. He has been feeling reasonably well. He denies any further dysphagia. However lately he has had a cough with sputum. His appetite is not that good and he has been losing weight. He had a CT scan of the chest on 10/08/2021 which revealed: Limited evaluation of pulmonary nodules due to artifact from respiratory motion. The 3 mm calcified right upper lobe nodule is stable. Other previously identified pulmonary nodules are not identified. Interval increase in wall thickening of the distal thoracic esophagus, GE junction and proximal stomach compared to January 2020 exam. I referred him to Dr. Mancini, who proceeded with an upper endoscopy, on 11/17 which revealed: On November 17, he underwent an upper endoscopy by Dr. Mancini which revealed: Esophagus: There was ulceration and friability with heaped up mucosa beginning at about 34 cm and extending to the EG junction at 36 cm and into the stomach for approximately 1 cm to 2 cm below this. Biopsies were obtained from the abnormal mucosa. The mucosa was ulcerated and friable with heaped up margins suspicious for recurrent tumor as opposed to just changes from his previous chemoradiation treatments. The scope was easily passed into the stomach with minimal narrowing at the EG junction. Pathology revealed: Superficial fragments of adenocarcinoma, poorly differentiated from EG junction mass, 36 cm, 34 cm. HER2/April: Negative. CEA level: 12.30. I shared the results with him and his daughters. I offered them systemic chemotherapy with FOLFOX/XELOX plus/minus, nivolumab based chemotherapy.(based upon the PDL1 status.) They are going to discuss it with the family and get back to me about their decision. In the meantime will have him consult with Dr. Stuart, to get his opinion and to see if a stent would be feasible. He saw him a couple of months ago. That time, he did not feel a stent was feasible. I proceeded with PDL1 testing. This came back positive for PDL1 of 25. There were given written information about the chemotherapy regimens. Details of the regimen including potential side effects of hypersensitivity reaction, skin rash, arthralgias myalgias, nausea vomiting diarrhea, peripheral neuropathy, renal toxicity, hepatotoxicity, risk of infection, need for antibiotic, blood transfusion as well as growth factors were addressed with him. He understood and was willing to proceed. He had a Port-A-Cath placed to facilitate the chemotherapy. He started treatment 12/07. He is tolerating it very well. His symptoms of dysphagia have resolved. He is able to eat well. Database: CBC from 02/15: WBC 4, HGB 11.3, HCT 36.1, PLT 176. CMP from 02/15: Lytes WNL, BUN 18, DOUGH MOLDER HAND 0.83, glucose 131. Calcium 9.2, albumin 3.5. LFTs: 0.7/180/34/29. CEA level: 5.80. CT scan of the chest and abdomen from 02/10, revealed: New right lower lobe nodules. Interval increase in wall thickening of the distal thoracic esophagus and GE junction. Wall thickening of the distal thoracic esophagus GE junction increased from previous exam. Thickened trabeculated bladder wall. Enlarged prostate gland. Abnormal soft tissue at the base of the bladder similar to previous exam probably related to lobulated contour of the prostate gland. New or increased gallbladder fundus wall thickening. Database: Labs from 03/29: CBC: WBC 9.9, HGB 11, HCT 34.8, MCV 89.2, PLT 95. CMP: Lytes WNL, glucose 154, Hermelindo 9.1, alb 3. LFTs: 0.7/243/31/21. CEA: 5.80. CBC from 05/03: WBC 7.6, HGB 10.9, HCT 34.1, PLT 92. CT chest from 04/16: Diffuse mural thickening involving mid and distal esophagus similar to previous study. There is mild wall thickening of the GE junction as well. There are several calcified and noncalcified nodules unchanged to the previous study. There are no new nodules. There is no abnormal mediastinal or axillary lymphadenopathy. He was in house between 06/19 to 06/20. With urinary retention. He saw Urology. Guerrero was placed. Due to ongoing neuropathy and treatment related side effects, he was treated with nivolumab with his last cycle, cycle 7 day 1. The treatment does appear to be working. I had a discussion with him and his daughter. He had a PET scan on 07/20, for restaging, it revealed: 1. No metabolically active disease is present. Note is made of persistent stable metabolically inactive nonspecific circumferential thickening within the distal thoracic esophagus extending into the GE junction region, may represent changes secondary to prior treatment, suboptimal distention /physiologic changes or combination thereof. Direct visualization may be considered if local disease recurrence is clinically suspected. 2. Stable sub-5 mm noncalcified right upper and right lower lung nodules, unchanged since 10/04/2019. 3. Stable sub-5 mm focal area of sclerosis involving L2 vertebral body, unchanged since 10/04/2019, without any concordant increased metabolic activity. 4. Diffuse atherosclerotic disease including coronary artery calcifications, without aneurysm, unchanged. 5. Interval placement of a Guerrero's catheter, appear in good position. CT chest from 12/30/22: Wall thickening of the mid and distal thoracic esophagus and stranding of the surrounding fat. No discrete mass seen. Stable small calcified and noncalcified right pulmonary nodules. New scattered areas of groundglass attenuation in the left lung and denser atelectasis or small infiltrate at the left lung base probably representing an infectious or inflammatory process. Severe coronary artery calcification. In view of the toxicity and stable disease his regimen was switched over to maintenance nivolumab. He has been tolerating that well. He is clinically doing quite well. However, his dysphagia had resolved after the stricture was dilated. It has since returned. He has had some urine abnormalities. His U/A is positive. Chest Cat scan also raised concern for a pulmonary infiltrate. l started him on Augmentin to cover both lung and UTI, pending urine culture results. Dr. Mancini proceeded with an EGD on 01/18: Distal esophageal mass lesion consistent with recurrence of adenocarcinoma. Biopsy results: Adenocarcinoma with focal signet ring cells. Note from Dr. Stuart from 02/11: 72-year-old man with significant medical comorbidities now with a recurrence of his esophageal cancer with the plan of undergoing chemotherapy. He was having difficulty eating prior to his scope when he was dilated but this seems improved now. I discussed with the patient and his daughter the options moving forward should he have more difficulty eating again would be a stent placement versus a feeding tube of some kind. We did discuss the option of a stent which I do not think is a great option here specially after being dilated as they tend to move any need to be replaced about every 8 weeks. A PEG tube would be an option now specially that he has been dilated given that the scope could pass into the stomach to place the PEG. We discussed this and the potential timing of this would best be after he comes back from [place] before he starts his chemotherapy to allow for some healing. His daughter wants to discuss this with his other daughters and will call us back but seems like the are leaning towards having a PEG tube placed the last week in February which can be done at [facility] prior to chemotherapy starting again. I did discuss the risks, benefits, and alternatives of this which they understood. I discussed the results with him and his 2 daughters. The G-tube placement was unsuccessful however, Dr. Stuart was able to dilate, esophagus where the mass was. He is still avoiding solid since he has a sore throat after the procedure. He recommended we proceed with surgically placed G-tube. CT scan of the abdomen from 03/26 revealed: 1. Thick-walled appearance of the urinary bladder, which could be secondary to cystitis in the proper clinical setting. Correlation with urinalysis recommended. Hyperdense material in the dependent bladder could reflect calcium or possibly excreted recently administered IV contrast. 2. Redemonstrated thick-walled appearance of the distal esophagus, in patient with known esophageal cancer. He saw Dr. Mario on 03/31. He had the feeding tube placement on 04/08. Meanwhile he has been started on third-line chemotherapy with the immune checkpoint inhibitor, pembrolizumab. Details of the regimen including potential side effects of hypersensitivity reaction, skin rash, nausea vomiting diarrhea, immune mediated reactions, pancytopenia, need for antibiotics, blood transfusion as well as growth factors were all explained to Him. He understood and was willing to proceed. He has so far been tolerating it well. Recently, it appears his dysphagia has worsened. He is mostly relying on the tube feedings now. He has episodic pooling of the saliva that he has to bring up from time to time. He has been losing weight. He has an appointment with Dr. Mancini for upper endoscopy but that is not until September 13. PLAN: I sent a message to Dr. Mario, to see if there is any option for a stent placement to prevent him aspirating. Unfortunately, he did not think so. He forwarded the message to Dr. Mancini, who also felt dilatation would not provide any long-term benefit. He will receive his 6th dose today. I checked in with Dr. Blankenship from radiation. He felt he could possibly give 5 doses for palliation. Meantime, I gave the daughter prescription for a suction machine to help suction out the secretions. I discussed hospice, and offered to make a referral. Saima will discuss with the rest of the family and get back to me. He will be re-staged with a CT scan, on 07/22. All his and his daughter's questions were answered to his satisfaction. Thank you, CC: Dr. Hooks. Dr. Stuart. Dr. Mancini. 07/25, Addendum: Talked with Saima, she has not been able to find the suction machine. I offered to make a hospice referral so that, that way all the equipment could be available to him. She is willing now. I made a referral to hospice for informational visit. - Time Spent With Patient Time Spent with Patient (in minutes): 30
--- NOTE | 2023-07-15 16:34 | MHC.HEMONC ---
Port study done, pt has fibrin sheath.
--- NOTE | 2023-07-20 09:56 | HO.HEMONCPA ---
Addendum entered by Nevaeh Helton 07/21/23 11:00: PA APPROVED FOR CT CHEST 27182 AND ABD/PELVIS 18922 AUTH #[id number] DOS 07/20/23 - 10/19/23 Addendum entered by Nevaeh Helton 07/20/23 13:43: CHANGED TO CT WITHOUT CONTRAST DUE TO PATIENT UNDER TO DRINK CONTRAST RESENT REQUEST FOR CT CHEST 06032 AND ABD/PELVIS 13952 AWAITING DECISION FROM [facility] Original Note: PA PENDING FOR CT SCAN OF CHEST WITH CONTRAST 64678 AND ABDOMEN AND PELVIS WITH CONTRAST 49125 AWAITING DECISION FROM [facility]
--- NOTE | 2023-07-25 12:32 | MHC.HEMONC ---
Per Pharmacist at [facility] - pt cannot swallow Duloxetine and it cannot be crushed for GT. Message sent to Dr Anna for replacement.
== END 2023-12-17 | disposition home or self-care (01) ==
LOC: HO.ONC 13:00
PROVIDERS: Internal Medicine; PCP Internal Medicine; Visit Provider Internal Medicine Medical Oncology
DX: Z51.11 Encounter for antineoplastic chemotherapy (principal); C15.5 Malignant neoplasm of lower third of esophagus; G62.0 Drug-induced polyneuropathy; T42.1X5D Adverse effect of iminostilbenes, subsequent encounter; E11.42 Type 2 diabetes mellitus with diabetic polyneuropathy; I10 Essential (primary) hypertension; Z93.1 Gastrostomy status; Z96.0 Presence of urogenital implants; N39.0 Urinary tract infection, site not specified
CPT/HCPCS: 36415; 36591; 80053; 81001; 82248; 82378; 82947; 84443; 85025; 86704; 86705; 86706; 86850; 86900; 86901; 87086; 87088; 87186; 87340; 96360; 96361; 96366; 96367; 96368; 96372; 96374; 96375; 96411; 96413; 96415; 96416; 96417; 96523; 99211; 99214; J0640; J1100; J1200; J1642; J2405; J2506; J9190; J9263; J9271; J9299; Q3014

== ENCOUNTER → 2023-07-12 16:10 | Outpatient (BNV) | payer OTHER, SELFPAY | PROVIDERS: PCP Internal Medicine; Visit Provider Radiology Vascular & Interventional Radiology | DX: Z93.1 Gastrostomy status (principal) | CPT/HCPCS: 36598 ==

== ENCOUNTER 2023-07-12 16:11 | Outpatient (REF) | payer OTHER, SELFPAY ==
--- NOTE | ~2023-07-12 | FL_ITS ---
EXAMINATION: XR PORT INJECTION WITH RADIOLOGICAL SUPERVISION AND INTERPRETATION CLINICAL INFORMATION: Inability to aspirate blood inability to aspirate from the port COMPARISON: CT scan dated 01/01/2023 TECHNIQUE: The port was accessed earlier by the oncology nurses. Blood could not be aspirated from the port. Upon injection of contrast there is filling of the port with filling of the catheter which is situated just above the level of the right atrium. There is no evidence of leakage of contrast. Probable fibrin sheath around the end of the catheter. FINDINGS: Excellent position of the port, probable fibrin sheath. FL/FL cva device check w fluoro IMPRESSION: Fibrin sheath around the port catheter. Stripping of the fibrin sheath around the catheter would be recommended.
== END 2023-07-12 16:12 | disposition home or self-care (01) ==
LOC: HO.XRAY 16:11
PROVIDERS: PCP Internal Medicine; Visit Provider Internal Medicine Medical Oncology
DX: C15.9 Malignant neoplasm of esophagus, unspecified (principal)
CPT/HCPCS: 36598

== ENCOUNTER → 2023-07-21 13:55 | Outpatient (BNVA) | payer OTHER, SELFPAY | PROVIDERS: PCP Internal Medicine; Visit Provider Urology ==

== ENCOUNTER 2023-07-21 17:07 | Emergency (ER) | payer OTHER, SELFPAY ==
--- NOTE | ~2023-07-21 | CT_ITS ---
EXAMINATION: CT ABDOMEN AND PELVIS WITH CONTRAST CLINICAL INFORMATION: Abdominal pain. COMPARISON: CT abdomen and pelvis dated 03/26/2023. TECHNIQUE: Multidetector volumetric images were obtained from the superior aspect of the liver through the pubic symphysis following administration 85 mL of Omnipaque 350 intravenous contrast. Sagittal and coronal reformatted images were obtained on the technologist's workstation. Oral contrast: No This CT examination was performed using dose optimization techniques as appropriate, variously including the following: *Automated exposure control *Adjustment of mA and/or kV according to patient size (this includes techniques or standardized protocols for targeted exams where dose is matched to indication/reason for exam; i.e. extremities or head) *Use of iterative reconstruction technique DLP: 407 mGy-cm FINDINGS: LUNG BASES: There is mild bibasilar dependent hypoaeration. There is marked wall thickening of the distal esophagus extending into the gastroesophageal junction (3:5 and 6:39). LIVER, GALLBLADDER, AND BILIARY TREE: The liver is normal in size, shape, and attenuation. No focal hepatic lesion or biliary ductal dilatation is present. The gallbladder is unremarkable with no evidence of radiopaque gallstones, gallbladder wall thickening, or obvious pericholecystic inflammatory changes. PANCREAS: Markedly atrophic. SPLEEN: Unremarkable. ADRENAL GLANDS: Unremarkable. KIDNEYS AND URETERS: The kidneys are normal in size, shape, and attenuation. No hydronephrosis, hydroureter, or calculi seen. No perinephric stranding. BLADDER: Decompressed by a Guerrero catheter. There is nondependent gas consistent with recent instrumentation. There is diffuse wall thickening of the urinary bladder. GASTROINTESTINAL TRACT: A 1.5 cm posterior gastric diverticulum is noted (3:11). There is mild diverticulosis, without acute diverticulitis. No bowel obstruction, free intraperitoneal air or abscess is seen. There is no focal bowel wall thickening. The vermiform appendix appears normal. ABDOMINAL WALL: There is a healed vertical midline incision. A gastrostomy tube is noted, with balloon tip situated towards the antrum. There are small fat-containing bilateral inguinal hernias. LYMPH NODES: No sizable abdominopelvic lymphadenopathy is seen. VASCULAR: A patent appearing left renal artery stent is noted. There is mild aortic and moderate biiliac atherosclerotic calcification. No abdominal aortic aneurysm or dissection is seen. PELVIC VISCERA: The prostate gland shows a transverse span of 4.6 cm. The seminal vesicles are unremarkable. OSSEOUS STRUCTURES: There is multi-level marked thoracolumbar spondylosis. At L4-L5, there is marked degenerative disc disease, with vacuum phenomenon. No acute or aggressive osseous abnormality is seen. CT/CT abdomen pelvis w IV con IMPRESSION: 1. There is marked distal esophageal and gastric wall thickening. There is a history of esophageal cancer. 2. There is again diffuse wall thickening of the urinary bladder, likely infectious or inflammatory in etiology. Recommend correlation with the patient's most recent urinalysis. 3. There is mild diverticulosis, without acute diverticulitis. 4. There are multi-level degenerative changes of the thoracolumbar spine. Degenerative disc disease is most pronounced at L4-L5. No acute or aggressive osseous finding is noted.
[2023-07-21 17:10] VITALS: BP 132/71; PULSE 116; RESP 18; TEMP 37.3; O2SAT 98; BMI 21.3
--- NOTE | 2023-07-21 17:14 | ED_ITS ---
HPI - Male Genitourinary General Chief complaint: Urogenital-Male Stated complaint: ? UTI Time Seen by Provider: 07/21/23 17:58 Source: patient and family Mode of arrival: ambulatory History of Present Illness HPI Narrative: 72-year-old male with known esophageal CA presents with chronic indwelling catheter as well as gastrostomy tube for inability to take liquids or solids. Over the past few days the catheter has been noted to have a malodorous output with some mild discomfort in patient reports chills. Related Data Home Medications Medication Instructions Recorded Confirmed blood sugar diagnostic (FreeStyle 06/19/22 03/15/23 Lite Strips) pen needle, diabetic 32 gauge x 06/19/22 03/15/2332 (Pentips) ondansetron 8 mg disintegrating 8 mg PO Q8H PRN nausea 03/27/23 03/27/23 tablet insulin aspar prot-insulin aspart See Rx Instructions subcut BID 03/30/23 100 unit/mL (70-30) subcutaneous pen (Novolog Mix 70-30FlexPen U-100) Previous Rx's Medication Instructions Recorded diabetic shoes #1 ea 08/12/22 lancets 33 gauge (TRUEplus Lancets) #200 ea 08/18/22 docusate sodium 100 mg capsule 200 mg (2 x 100 mg) PO QPM PRN 03/24/23 constipation #60 ea ferrous sulfate 325 mg (65 mg 325 mg PO QAM #30 tabs 03/24/23 iron) tablet (FeroSul) tamsulosin 0.4 mg capsule 0.4 mg PO BEDTIME #30 caps 03/29/23 hydrocodone 5 mg-acetaminophen 325 1 tab PO Q4-6H PRN pain #30 tabs 04/08/23 mg tablet cholecalciferol (vitamin D3) 25 1,000 unit PO QAM #90 caps 05/22/23 mcg (1,000 unit) capsule (Vitamin D3) dextromethorphan-guaifenesin 5 10 ml PO Q4-8H PRN Congestion #300 05/31/23 mg-100 mg/5 mL oral liquid (Tussin mL DM Cough and Chest) duloxetine 20 mg capsule,delayed 20 mg PO BID #60 caps 06/17/23 release omeprazole 20 mg capsule,delayed 20 mg PO DAILY #60 caps 06/17/23 release atorvastatin 40 mg tablet 40 mg PO QPM 90 days #90 tabs 06/27/23 metformin 500 mg tablet,extended 1,000 mg (2 x 500 mg) PO BID 90 06/27/23 release 24 hr days #360 tabs metoprolol succinate 25 mg 12.5 mg (1/2 x 25 mg) PO QPM #45 06/27/23 tablet,extended release 24 hr tabs lorazepam 0.5 mg tablet 0.5 mg PO TID PRN anxiety 30 days 07/13/23 #90 tabs finasteride 5 mg tablet 5 mg PO DAILY 90 days #90 tabs 07/19/23 mirtazapine 30 mg tablet 30 mg PO BEDTIME #90 tabs 07/19/23 tramadol 50 mg tablet 50 mg PO Q6-8H PRN pain 30 days 07/20/23 #120 tabs cefdinir 300 mg capsule 300 mg PO BID 10 days #20 caps 07/21/23 sulfamethoxazole 800 1 tab PO BID 3 days #6 tabs 07/21/23 mg-trimethoprim 160 mg tablet (Bactrim DS) Allergies Allergy/AdvReac Type Severity Reaction Status Date / Time No Known Allergies Allergy Verified 04/18/23 09:04 Review of Systems 2 Review of Systems: Pertinent positives and negatives as stated in [facility] Past Medical History Source: nursing notes reviewed Medical History Gastrostomy tube in place (04/08/23) Port-A-Cath in place Suprapubic catheter HLD (hyperlipidemia) Depression Anxiety Constipation Benign essential hypertension Keratotic lesion Vitamin D deficiency 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 Social History Social History Household Members: Family Housing: House Do you presently have visiting nurse or other home services: No Alcohol intake: never Patient Tobacco Use Status: Never used Tobacco Smoked in Last 30 Days: No e-Cigarette/Vaping Use: Never Used Second Hand Smoke Exposure: No Use of substances other than those prescribed or required for medical reasons: No Advance Directives: Yes Advance Directives on File: Yes Advance Directives Date on File: 02/03/22 service: No Current occupational status: retired and disabled Cognitive needs: No (cane/wheelchair) Hearing needs: No Vision needs: Yes (glasses) Physical Exam 2 Vital Signs: Vital Signs: Last Vital Signs Temp 98.9 F 07/21/23 21:39 Pulse 100 07/21/23 21:39 Resp 18 07/21/23 21:39 BP 119/67 07/21/23 21:39 Pulse Ox 98 07/21/23 21:39 O2 Del Method Room Air 07/21/23 21:39 BMI result Body Mass Index 21.3 VITAL SIGNS: Reviewed. GENERAL: Chronically ill, frail, in no acute distress. HEAD: Normocephalic/atraumatic EYES: PERRLA, EOMI EARS: Ext canals without abnormality NOSE: Nares patent bilateral OROPHARYNX: no oral lesions noted, posterior pharynx clear NECK: Supple, no adenopathy LUNGS: Normal breath sounds. No adventitious sounds or accessory muscle use. SpO2<97> CARDIOVASCULAR: Regular rate and rhythm without noted murmurs ABDOMEN: Soft, non-tender, non-distended with bowel sounds, gastrostomy tube in place and patent MUSCULOSKELETAL: No tenderness, deformities, or effusions noted on gross inspection. EXTREMITIES: No cyanosis, clubbing or edema. SKIN: Inspection of the skin reveals no rashes NEUROLOGIC: Alert and oriented x 3. Strength and sensation to light touch were grossly intact x 4. Course Course Course Narrative: KAVITHAE 17:15pm - 72yoM with a Sig PMHx of diabetes, HLD, suprapubic catheter in place, history of adenocarcinoma of the esophagus on chemo therapy, anxiety and depression who is presenting to the ER with c/o of decreased urine output and foul-smelling urine over the past few days worse today. Daughter Reports that he was seen at the urology office prior to arrival and they change the catheter and started him on prophylactic antibiotics but did not take a urine culture and daughter is concerned about this. Plan: Patient is stable he will be getting his blood drawn and we will obtain a UA he will be sent straight to the ER due to patient may be neutropenic due to his history we do not want to expose him to any other sick contacts. Medications Administered Discontinued Medications Generic Name Dose Route Start Last Admin Trade Name Corinne PRN Reason Stop Dose Admin Ceftriaxone Sodium 1 gm/ 50 mls @ 100 mls/hr 07/21/23 18:51 07/21/23 21:42 Sodium Chloride IV 07/21/23 19:20 Infused ONCE ONE Infusion Iohexol 100 ml 07/21/23 20:42 07/21/23 20:42 Iohexol 350 Mg/Ml 100 Ml Infus..Btl IV 07/21/23 20:43 85 ml ONCE ONE Administration Medical Decision Making Medical Decision Making [facility] Narrative: 72-year-old male with history and clinical presentation for likely UTI, patient will require either liquid or an antibiotic that can easily be crushed that way he is able to take through the gastrostomy tube. Patient otherwise appears well and hemodynamically stable. I reviewed all investigations with hematologic indices significant for leukocytosis and left shift but otherwise chronically stable normocytic anemia and a slight elevation of you platelet count. Chemistry indices are largely within normal limits other than a hyperglycemia likely secondary to underlying infection, no no ALTAGRACIA and electrolyte and liver enzyme values are within normal limits with the exception of the alkaline phosphatase which is chronically elevated. Urinalysis is grossly positive for blood/leukocyte esterase in the presence of wbc's with trace bacteria. On review of prior urine cultures it has grown out Pseudomonas previously which was pansensitive and due to patient's requirements of needing an antibiotic that can be administered through the PEG tube patient will go home on 10 days of cefdinir and requested he follow-up with his primary care doctor. I ordered the CT scan due to patient's complicated history and the most pertinent identification is that there is a thickened bladder wall consistent with an infectious etiology in otherwise my interpretation is in agreement with radiology's impression. Patient is received initial dose of antibiotics, Tylenol. All results have been discussed with the patient and his daughter at bedside. Differential Diagnosis Differential Diagnoses: The differential diagnosis associated with the presentation includes Please see the discussion above Admission/Observation Consideration of admission/observation: Escalation of care including admission/observation considered Please see the discussion above Lab Data [facility] Lab Attestation statement: I reviewed the patient's lab results. Please see the discussion above 07/21/23 17:20 07/21/23 17:20 Labs: Lab Results 07/21/23 07/21/23 07/21/23 Range/Units 17:20 18:15 18:33 WBC 17.5 H (4.8-10.8) X10*3/uL RBC 4.65 (4.60-5.80) X10*6/uL Hgb 13.5 L (14.0-18.0) g/dl Hct 41.7 L (42.0-52.0) % MCV 89.7 (80.0-98.0) fL MCH 29.0 (27.0-33.0) pg MCHC 32.4 (31.0-36.0) g/dl RDW 14.8 (11.0-16.0) % Plt Count 414 H (160-400) X10*3/uL MPV 11.9 (9.4-12.4) fL Immature Gran % (Auto) 0.5 H (0.0-0.4) % Neut % (Auto) 80.2 H (45-73) % Lymph % (Auto) 10.9 L (20-40) % [place] % (Auto) 8.1 (2-11) % Eos % (Auto) 0.1 (0-4) % Baso % (Auto) 0.2 (0-2) % Lymph # (Auto) 1.9 (1.2-4.9) X10*3/uL [place] # (Auto) 1.4 H (0.1-1.2) X10*3/uL Eos # (Auto) 0.0 (0.0-0.4) X10*3/uL Baso # (Auto) 0.0 (0.0-0.2) X10*3/uL Abs Immat Gran (auto) 0.08 H (0.00-0.03) X10*3/uL Absolute Neuts (auto) 14.1 H (2.0-8.3) x10*3/uL Absolute Nucleated RBC 0.000 (0.0-0.012) X10*3/uL Nucleated RBC % (auto) 0.0 (0.0-0.2) /100WBC Sodium 135 (135-145) mmol/L Potassium 5.1 D (3.3-5.1) mmol/L Chloride 98 (96-108) mmol/L Carbon Dioxide 27 (22-29) mmol/L Anion Gap 15 (12-20) BUN 24 H (9-16) mg/dL Creatinine 0.85 (0.5-1.4) mg/dL Estim Creat Clear Calc 72.6 Estimated GFR > 60 POC Glucose 387 H* (60-115) mg/dL Random Glucose 455 H* (60-115) mg/dL Lactic Acid (0.5-2.0) mmol/L Calcium 9.4 (8.4-10.2) mg/dL Magnesium 2.1 (1.6-2.6) mg/dL Total Bilirubin 0.5 (0.0-1.0) mg/dL AST 21 (5-37) U/L ALT 23 (0-40) U/L Alkaline Phosphatase 184 H (39-117) U/L Total Protein 7.8 (6.5-8.0) g/dL Albumin 3.7 (3.5-5.0) g/dL Urine Color Yellow Urine Appearance Clear Urine pH 6.5 (5.0-9.0) Ur Specific [place] >= 1.030 H (1.005-1.025) Urine Protein 30 (1+) H (Neg-Trace) mg/dL Urine Glucose (UA) >=1000 H (Negative) mg/dL Urine Ketones Negative (Negative) mg/dL Urine Blood Moderate (2+) H (Negative) Urine Nitrite Negative (Negative) Ur Leukocyte Esterase Moderate (2+) H (Negative) Urine RBC 11-20 H (0-2) /HPF Urine WBC >50 H (0-5) /HPF Ur Squamous Epith Cells 0-2 (0-2) /HPF Urine Bacteria Trace (None Seen) Hyaline Casts 0-2 (0-2) /LPF 07/21/23 Range/Units 19:54 WBC (4.8-10.8) X10*3/uL RBC (4.60-5.80) X10*6/uL Hgb (14.0-18.0) g/dl Hct (42.0-52.0) % MCV (80.0-98.0) fL MCH (27.0-33.0) pg MCHC (31.0-36.0) g/dl RDW (11.0-16.0) % Plt Count (160-400) X10*3/uL MPV (9.4-12.4) fL Immature Gran % (Auto) (0.0-0.4) % Neut % (Auto) (45-73) % Lymph % (Auto) (20-40) % [place] % (Auto) (2-11) % Eos % (Auto) (0-4) % Baso % (Auto) (0-2) % Lymph # (Auto) (1.2-4.9) X10*3/uL [place] # (Auto) (0.1-1.2) X10*3/uL Eos # (Auto) (0.0-0.4) X10*3/uL Baso # (Auto) (0.0-0.2) X10*3/uL Abs Immat Gran (auto) (0.00-0.03) X10*3/uL Absolute Neuts (auto) (2.0-8.3) x10*3/uL Absolute Nucleated RBC (0.0-0.012) X10*3/uL Nucleated RBC % (auto) (0.0-0.2) /100WBC Sodium (135-145) mmol/L Potassium (3.3-5.1) mmol/L Chloride (96-108) mmol/L Carbon Dioxide (22-29) mmol/L Anion Gap (12-20) BUN (9-16) mg/dL Creatinine (0.5-1.4) mg/dL Estim Creat Clear Calc Estimated GFR POC Glucose (60-115) mg/dL Random Glucose (60-115) mg/dL Lactic Acid 1.8 (0.5-2.0) mmol/L Calcium (8.4-10.2) mg/dL Magnesium (1.6-2.6) mg/dL Total Bilirubin (0.0-1.0) mg/dL AST (5-37) U/L ALT (0-40) U/L Alkaline Phosphatase (39-117) U/L Total Protein (6.5-8.0) g/dL Albumin (3.5-5.0) g/dL Urine Color Urine Appearance Urine pH (5.0-9.0) Ur Specific [place] (1.005-1.025) Urine Protein (Neg-Trace) mg/dL Urine Glucose (UA) (Negative) mg/dL Urine Ketones (Negative) mg/dL Urine Blood (Negative) Urine Nitrite (Negative) Ur Leukocyte Esterase (Negative) Urine RBC (0-2) /HPF Urine WBC (0-5) /HPF Ur Squamous Epith Cells (0-2) /HPF Urine Bacteria (None Seen) Hyaline Casts (0-2) /LPF Radiology Impression Discussion of test interpretation with radiology: I have reviewed the radiologist's reading. Radiologist Impression: Please see the discussion above External Record Review External record reviewed: Office record, Outpatient record, Prior outpatient labs and Prior outpatient radiology Chronic Conditions Patient?s care impacted by: Diabetes Critical Care Time Critical Care Time Critical Care Time: Yes Total Critical Care Time: 30 Attestation: I personally attest to this time spent taking care of the patient. Discharge Plan Discharge Clinical Impression: UTI (urinary tract infection) due to urinary indwelling Guerrero catheter, Hyperglycemia due to diabetes mellitus Patient Disposition: Home, Self-Care Instructions: Catheter-associated Urinary Tract Infection (ED) Additional Instructions: 1. Reanudar todos los medicamentos caseros seg?n lo recetado. 2. Complete todo el ciclo de antibi?ticos seg?n lo prescrito. 3. Dori un seguimiento con alexander proveedor de atenci?n primaria. Regrese a la katharina de emergencias si los s?ntomas empeoran. 1. Resume all home medications as prescribed. 2. Complete the entire course of antibiotics as prescribed. 3. Please follow-up with your primary care provider. Return to the ER for any worsening symptoms. Prescriptions: New cefdinir 300 mg capsule 300 mg PO BID 10 Days Qty: 20 0RF Rx Instructions: Please open the capsules to administer through the G-tube No Action (DME) diabetic shoes See Rx Instructions .Route .MEDSUPPLY Qty: 1 0RF Rx Instructions: extra depth orthopedic shoes ( 1 pair ) with customize heat molded multi density inner soles ( 3 pair) Dispense 1 Sig: As directed DX: And IDDM /polyneuropathy ( E11 0.42 ); hammertoe foot deformity ( M 20.41, and 20.42 ) pre ulcerative skin lesion ( L 85.1 ) 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 ) type 2 diabetes with polyneuropathy (DME) lancets [TRUEplus Lancets] 33 gauge misc MISCELLANEOUS QID Qty: 200 4RF Rx Instructions: Test blood sugar 4 x per day as directed. docusate sodium 100 mg capsule 200 mg PO QPM PRN (Reason: constipation) Qty: 60 5RF ferrous sulfate [FeroSul] 325 mg (65 mg iron) tablet 325 mg PO QAM Qty: 30 7RF cholecalciferol (vitamin D3) [Vitamin D3] 25 mcg (1,000 unit) capsule 1,000 unit PO QAM Qty: 90 0RF omeprazole 20 mg capsule,delayed release(DR/EC) 20 mg PO DAILY Qty: 60 2RF duloxetine 20 mg Capsule,Delayed Release(Dr/Ec) 20 mg PO BID Qty: 60 4RF metoprolol succinate 25 mg tablet extended release 24 hr 12.5 mg PO QPM Qty: 45 4RF atorvastatin 40 mg tablet 40 mg PO QPM 90 Days Qty: 90 0RF metformin 500 mg tablet extended release 24 hr 1,000 mg PO BID 90 Days Qty: 360 0RF lorazepam 0.5 mg tablet 0.5 mg PO TID PRN (Reason: anxiety) 30 Days Qty: 90 0RF finasteride 5 mg tablet 5 mg PO DAILY 90 Days Qty: 90 1RF mirtazapine 30 mg tablet 30 mg PO BEDTIME Qty: 90 1RF tramadol 50 mg tablet 50 mg PO Q6-8H PRN (Reason: pain) 30 Days Qty: 120 0RF Tussin DM Cough and Chest 5-100 mg/5 mL Liquid 10 ml PO Q4-8H PRN (Reason: Congestion) Qty: 300 3RF (DME) FreeStyle Lite Strips Strip MISCELLANEOUS QID (DME) pen needle, diabetic [Pentips] 32 gauge x 5/32 needle MISCELLANEOUS QID ondansetron 8 mg tablet,disintegrating 8 mg PO Q8H PRN (Reason: nausea) tamsulosin 0.4 mg Capsule 0.4 mg PO BEDTIME Qty: 30 0RF hydrocodone-acetaminophen 5-325 mg tablet 1 tab PO Q4-6H PRN (Reason: pain) Qty: 30 0RF Rx Instructions: Partial Fill upon patient request. sulfamethoxazole-trimethoprim [Bactrim DS] 800-160 mg tablet 1 tab PO BID 3 Days Qty: 6 0RF insulin asp prt-insulin aspart [Novolog Mix 70-30FlexPen U-100] 100 unit/mL (70-30) insulin pen See Rx Instructions subcut BID Rx Instructions: 30 units in AM and 22 units in PM subcutaneously 2 times a day; 30 units in AM and 22 units in PM Referrals: Norm Hooks MD [Primary Care Provider] - Print Language: Bahraini
[2023-07-21 17:24] LABS: MANUAL DIFF FLAG NO
[2023-07-21 17:28] LABS: Basophils Percent Auto 0.2 % (0-2); Eosinophils Percent Auto 0.1 % (0-4); Hematocrit 41.7 % (42.0-52.0); Hemoglobin 13.5 g/dl (14.0-18.0); Imm Gran Abs Auto 0.08 X10*3/uL (0.00-0.03); Imm Gran Pct Auto 0.5 % (0.0-0.4); Lymphocytes Absolute Auto 1.9 X10*3/uL (1.2-4.9); Lymphocytes Percent Auto 10.9 % (20-40); Mean Corpuscular HGB Conc 32.4 g/dl (31.0-36.0); Mean Corpuscular Volume 89.7 fL (80.0-98.0); Mean Platelet Volume 11.9 fL (9.4-12.4); Monocytes Absolute Auto 1.4 X10*3/uL (0.1-1.2); Monocytes Percent Auto 8.1 % (2-11); Neutrophils Absolute Auto 14.1 x10*3/uL (2.0-8.3); Neutrophils Percent Auto 80.2 % (45-73); Platelet Count 414 X10*3/uL (160-400); Red Blood Count 4.65 X10*6/uL (4.60-5.80); Red Cell Distribution Width 14.8 % (11.0-16.0); White Blood Count 17.5 X10*3/uL (4.8-10.8)
[2023-07-21 17:58] LABS: Alanine Aminotransferase 23 U/L (0-40); Albumin Level 3.7 g/dL (3.5-5.0); Alkaline Phosphatase 184 U/L (39-117); Anion Gap 15 (12-20); Aspartate Amino Transferase 21 U/L (5-37); Bilirubin Total 0.5 mg/dL (0.0-1.0); Blood Urea Nitrogen 24 mg/dL (9-16); Calcium 9.4 mg/dL (8.4-10.2); Carbon Dioxide 27 mmol/L (22-29); Chloride 98 mmol/L (96-108); Creatinine Clr Calc Pharmacy 72.6; Estimated Glomerular Filt Rate > 60; Glucose Random 455 mg/dL (60-115); Magnesium 2.1 mg/dL (1.6-2.6); Potassium 5.1 mmol/L (3.3-5.1); Sodium 135 mmol/L (135-145); Total Protein 7.8 g/dL (6.5-8.0)
[2023-07-21 18:08] VITALS: BP 124/75; PULSE 106; RESP 18; TEMP 37.2; O2SAT 97
--- NOTE | 2023-07-21 18:18 | PC.NURSE ---
pt has a wolfe cath which was placed yesterday. pt also has a g-tube. feeding protein fiber 1.0 at 6 day per daughter.
[2023-07-21 18:19] LABS: Glucose, Whole Blood 387 mg/dL (60-115)
--- NOTE | 2023-07-21 18:21 | PC.NURSE ---
g-tube dressing was changed today and wolfe cath today by .
[2023-07-21 18:40] LABS: Appearance Urine Clear; Color Urine Yellow; Glucose Urine UA >=1000 mg/dL (Negative); Leukocyte Esterase Urine Moderate (2+) (Negative); Nitrite Urine Negative (Negative); PH 6.5 (5.0-9.0); Specific Gravity - Urine >= 1.030 (1.005-1.025); UMIC TRIGGER UACC YES; Urine Blood Moderate (2+) (Negative); Urine Ketones Negative (Negative); Urine Protein 30 (1+) mg/dL (Neg-Trace)
[2023-07-21 18:45] LABS: Bacteria Urine Trace (None Seen); Hyaline Casts Urine 0-2 /LPF (0-2); Squamous Epithelial Cell Urine 0-2 /HPF (0-2); UACC Culture Trigger YES; WBC Urine >50 /HPF (0-5)
[2023-07-21 20:21] LABS: Lactic Acid 1.8 mmol/L (0.5-2.0)
[2023-07-21] MEDS: iohexoL 350 MG/ML 100 ML INFUS..BTL IV (20:42)
[2023-07-21] MEDS: cefTRIAXone sodium 1 GM in 0.9 % Sodium Chloride 50 ML IV (20:47)
[2023-07-21 21:39] VITALS: BP 119/67; PULSE 100; RESP 18; TEMP 37.2; O2SAT 98
[2023-07-21] MEDS: Acetaminophen 325 MG TABLET 975 MG PO (22:45)
== END 2023-07-21 22:59 | disposition home or self-care (01) ==
PROVIDERS: Physician Assistant Medical; Emergency Provider Student in an Organized Health Care Education/Training Program; PCP Internal Medicine
DX: N39.0 Urinary tract infection, site not specified (principal); E11.65 Type 2 diabetes mellitus with hyperglycemia; R10.2 Pelvic and perineal pain; Z79.4 Long term (current) use of insulin; Z79.899 Other long term (current) drug therapy; Z85.01 Personal history of malignant neoplasm of esophagus
CPT/HCPCS: 36415; 74177; 80053; 81001; 82947; 83605; 83735; 85025; 87040; 87086; 87088; 87186; 96365; 99284; 99285; J0696; Q9967

== ENCOUNTER 2023-07-22 11:25 | Outpatient (REF) | payer OTHER, SELFPAY ==
--- NOTE | ~2023-07-22 | CT_ITS ---
EXAMINATION: CT CHEST, ABDOMEN AND PELVIS WITHOUT CONTRAST CLINICAL INFORMATION: Restaging esophageal carcinoma. COMPARISON: Prior CT examinations, most recently 07/21/2023. TECHNIQUE: Multidetector volumetric imaging was performed from the thoracic inlet through the pubic symphysis without intravenous contrast. Sagittal and coronal reformatted images were obtained on the technologist workstation. This CT examination was performed using dose optimization techniques as appropriate, variously including the following: *Automated exposure control. *Adjustment of mA and/or kV according to patient size (this includes techniques or standardized protocols for targeted exams where dose is matched to indication/reason for exam, i.e., extremities or head). *Use of iterative reconstruction technique. DLP: 509 mGy-cm. FINDINGS: CHEST: LUNGS: There are several benign, calcified bilateral lung granulomas. Within the medial basal segment of the right lower lobe (5:287), a 4 mm noncalcified subpleural nodule is seen. At the lateral right base (5:401 and 407), there are 4 mm ovoid and 5 mm round noncalcified nodules. Abutting the lateral aspect of the right major fissure (5:415), a 3 mm benign pleural-based lymph node is seen. Laterally within the right upper lobe (5:171), a 2 mm noncalcified subpleural nodule is seen. Overall, these nodules are stable from 12/30/2022. There is mild biapical pleural and parenchymal scarring. No new nodule, mass, infiltrate or groundglass opacity is seen. There is no generalized increase in peripheral interlobular septal markings. There is no significant bleb or bullous formation. There is no generalized small airway thickening. The central airways appear patent. MEDIASTINUM: The thyroid is normal. No thoracic aortic aneurysm is seen. There are atherosclerotic calcifications of the great vessel origins and thoracic aorta. There are marked coronary artery atherosclerotic calcifications. No hilar or mediastinal lymphadenopathy. There is marked wall thickening again seen of the distal esophagus and the gastroesophageal junction. The more proximal esophagus is somewhat dilated. PERICARDIUM/PLEURA: There is no significant effusion. No pleural mass or thickening. CHEST WALL/AXILLA: Unremarkable. ABDOMEN/PELVIS: LIVER, GALLBLADDER, BILIARY TREE: The liver is normal in size, shape, and attenuation. No focal hepatic lesion or biliary ductal dilatation is present. The gallbladder is decompressed and otherwise unremarkable, with no evidence of radiopaque gallstones, gallbladder wall thickening, or pericholecystic inflammatory changes. PANCREAS: Markedly atrophic and otherwise unremarkable. SPLEEN: Unremarkable. ADRENAL GLANDS: Unremarkable. KIDNEYS AND URETERS: The kidneys are normal in size, shape, and attenuation. No hydronephrosis or hydroureter or calculi seen. No perinephric stranding. BLADDER: Again, there is diffuse bladder wall thickening. The urinary bladder is decompressed by a Guerrero catheter. GASTROINTESTINAL TRACT: A small posterior gastric diverticulum is redemonstrated. There is mild diverticulosis, without acute diverticulitis. There is moderate stool within the colon, suggesting constipation. No obstruction, free intraperitoneal air or abscess is seen. There is no focal bowel wall thickening. The vermiform appendix appears normal. ABDOMINAL WALL: There is a healed vertical midline incision. A gastrostomy tube remains stable in position, with tip situated within the distal gastric body. There is a small fat-containing left inguinal hernia. LYMPH NODES: Normal. VASCULAR: A patent appearing left renal artery stent is redemonstrated. There is moderate aortoiliac atherosclerotic calcification. No abdominal aortic aneurysm or dissection is seen. PELVIC VISCERA: Unremarkable. OSSEOUS STRUCTURES: There is multi-level marked thoracolumbar spondylosis. At L4-L5, there is marked degenerative disc disease, with vacuum phenomenon. No acute or aggressive osseous abnormality is seen. CT/CT abdomen pelvis wo IV con IMPRESSION: 1. There are continued stable small nonspecific, noncalcified bilateral lung nodules. The largest, situated at the lateral right base, measures 5 mm. Recommend continued attention on imaging follow-up. 2. No new nodule, mass, infiltrate or groundglass opacity is seen. 3. There is no thoracic lymphadenopathy or pleural effusion. 4. Diffuse gastroesophageal wall thickening is seen. There is dilatation of the more proximal esophagus. 5. No abdominopelvic mass, free fluid or lymphadenopathy is seen. 6. There is mild diverticulosis, without acute diverticulitis. 7. Diffuse bladder wall thickening is redemonstrated, possibly infectious or inflammatory. Recommend correlation with the patient's most recent urinalysis. 8. There are multi-level marked degenerative changes of the thoracolumbar spine, most pronounced at L4-L5. No aggressive osseous lesion is seen.
== END 2023-07-22 11:26 | disposition home or self-care (01) ==
LOC: HO.CT 11:25
PROVIDERS: PCP Internal Medicine; Visit Provider Internal Medicine Medical Oncology
DX: C16.0 Malignant neoplasm of cardia (principal)
CPT/HCPCS: 71250; 74176

== ENCOUNTER 2023-08-01 07:43 | Outpatient (REF) | payer OTHER, SELFPAY ==
[2023-08-01 12:08] LABS: MANUAL DIFF FLAG NO
[2023-08-01 12:14] LABS: Basophils Percent Auto 0.4 % (0-2); Eosinophils Absolute Auto 0.1 X10*3/uL (0.0-0.4); Eosinophils Percent Auto 1.2 % (0-4); Hematocrit 43.5 % (42.0-52.0); Hemoglobin 14.1 g/dl (14.0-18.0); Imm Gran Abs Auto 0.04 X10*3/uL (0.00-0.03); Imm Gran Pct Auto 0.4 % (0.0-0.4); Lymphocytes Absolute Auto 3.5 X10*3/uL (1.2-4.9); Lymphocytes Percent Auto 35.2 % (20-40); Mean Corpuscular HGB Conc 32.4 g/dl (31.0-36.0); Mean Corpuscular Hemoglobin 29.2 pg (27.0-33.0); Mean Corpuscular Volume 90.1 fL (80.0-98.0); Mean Platelet Volume 11.9 fL (9.4-12.4); Monocytes Absolute Auto 0.8 X10*3/uL (0.1-1.2); Monocytes Percent Auto 7.9 % (2-11); Neutrophils Absolute Auto 5.4 x10*3/uL (2.0-8.3); Neutrophils Percent Auto 54.9 % (45-73); Platelet Count 431 X10*3/uL (160-400); Red Blood Count 4.83 X10*6/uL (4.60-5.80); Red Cell Distribution Width 14.6 % (11.0-16.0); White Blood Count 9.8 X10*3/uL (4.8-10.8)
[2023-08-01 12:34] LABS: Alanine Aminotransferase 17 U/L (0-40); Albumin Level 3.8 g/dL (3.5-5.0); Alkaline Phosphatase 169 U/L (39-117); Anion Gap 14 (12-20); Aspartate Amino Transferase 20 U/L (5-37); Bilirubin Total 0.7 mg/dL (0.0-1.0); Blood Urea Nitrogen 20 mg/dL (9-16); Carbon Dioxide 30 mmol/L (22-29); Chloride 99 mmol/L (96-108); Estimated Glomerular Filt Rate > 60; Glucose Random 214 mg/dL (60-115); Potassium 4.3 mmol/L (3.3-5.1); Sodium 139 mmol/L (135-145); Total Protein 8.1 g/dL (6.5-8.0)
== END 2023-08-01 07:44 | disposition home or self-care (01) ==
LOC: HO.LHD 07:43
PROVIDERS: Visit Provider Internal Medicine Medical Oncology
DX: C15.4 Malignant neoplasm of middle third of esophagus (principal)
CPT/HCPCS: 36415; 80053; 85025

== ENCOUNTER 2023-08-22 08:20 | Outpatient (REF) | payer OTHER, SELFPAY | END 2023-08-22 08:21 | disposition home or self-care (01) | LOC: HO.LHD 08:20 | PROVIDERS: Visit Provider Internal Medicine Medical Oncology | DX: Z13.89 Encounter for screening for other disorder (principal) ==

== ENCOUNTER 2023-08-24 18:18 | Emergency (ER) | payer OTHER, SELFPAY ==
[2023-08-24 18:20] VITALS: BP 125/74; PULSE 124; RESP 18; TEMP 36.8; O2SAT 100; BMI 20.5
--- NOTE | 2023-08-24 18:21 | ED_ITS ---
HPI - General Adult General Stated complaint: catheter issue Related Data Home Medications Medication Instructions Recorded Confirmed blood sugar diagnostic (FreeStyle 06/19/22 03/15/23 Lite Strips) pen needle, diabetic 32 gauge x 06/19/22 03/15/23 (Pentips) ondansetron 8 mg disintegrating 8 mg PO Q8H PRN nausea 03/27/23 03/27/23 tablet insulin aspar prot-insulin aspart See Rx Instructions subcut BID 03/30/23 100 unit/mL (70-30) subcutaneous pen (Novolog Mix 70-30FlexPen U-100) Previous Rx's Medication Instructions Recorded diabetic shoes #1 ea 08/12/22 docusate sodium 100 mg capsule 200 mg (2 x 100 mg) PO QPM PRN 03/24/23 constipation #60 ea ferrous sulfate 325 mg (65 mg 325 mg PO QAM #30 tabs 03/24/23 iron) tablet (FeroSul) hydrocodone 5 mg-acetaminophen 325 1 tab PO Q4-6H PRN pain #30 tabs 04/08/23 mg tablet dextromethorphan-guaifenesin 5 10 ml PO Q4-8H PRN Congestion #300 05/31/23 mg-100 mg/5 mL oral liquid (Tussin mL DM Cough and Chest) duloxetine 20 mg capsule,delayed 20 mg PO BID #60 caps 06/17/23 release mirtazapine 30 mg tablet 30 mg PO BEDTIME #90 tabs 07/19/23 cefdinir 300 mg capsule 300 mg PO BID 10 days #20 caps 07/21/23 sulfamethoxazole 800 1 tab PO BID 3 days #6 tabs 07/21/23 mg-trimethoprim 160 mg tablet (Bactrim DS) cholecalciferol (vitamin D3) 25 25 mcg feeding tube DAILY 90 days 07/25/23 mcg (1,000 unit) tablet #90 tabs omeprazole 20 mg capsule,delayed 20 mg PO DAILY #60 caps 07/25/23 release omeprazole magnesium 20 mg See Rx Instructions PO DAILY 30 07/25/23 tablet,delayed release days #30 tabs polyethylene glycol 3350 17 gram 17 g feeding tube DAILY 30 days 07/25/23 oral powder packet (Miralax) #30 ea terazosin 5 mg capsule 5 mg PO DAILY 90 days #90 caps 07/26/23 atorvastatin 40 mg tablet 40 mg PO QPM 90 days #90 tabs 07/29/23 metformin 500 mg/5 mL oral solution 1,000 mg (10 mL) feeding tube BID 07/29/23 30 days #600 mL metoprolol tartrate 25 mg tablet 12.5 mg (1/2 x 25 mg) feeding tube 07/29/23 QPM #30 tabs lorazepam 0.5 mg tablet 0.5 mg PO TID PRN anxiety 30 days 08/08/23 #90 tabs tramadol 50 mg tablet 50 mg PO Q6-8H PRN pain 30 days 08/17/23 #120 tabs lancets 33 gauge (TRUEplus Lancets) #200 ea 08/24/23 Allergies Allergy/AdvReac Type Severity Reaction Status Date / Time No Known Allergies Allergy Verified 04/18/23 09:04 [facility] Past Medical History Medical History Gastrostomy tube in place (04/08/23) Port-A-Cath in place Suprapubic catheter HLD (hyperlipidemia) Depression Anxiety Constipation Benign essential hypertension Keratotic lesion Vitamin D deficiency [facility] (current) use of insulin Diabetes type 2, uncontrolled Surgical History History of esophagogastroduodenoscopy Adenocarcinoma of cardio-esophageal junction (~2018) History of left below knee amputation (~2018) History of atherectomy (~2018) Family History Family History Father Diabetes Hypertension Mother No problems noted. Social History Social History Household Members: Family Housing: House Do you presently have visiting nurse or other home services: No Alcohol intake: never Patient Tobacco Use Status: Never used Tobacco e-Cigarette/Vaping Use: Never Used Second Hand Smoke Exposure: No Advance Directives Date on File: 02/03/22 service: No Current occupational status: retired and disabled Cognitive needs: No (cane/wheelchair) Hearing needs: No Vision needs: Yes (glasses) Course Course Course Narrative: This is an RME: Additional HPI, ROS, PE not included below will be deferred to primary provider. This is a [id number]-male with a hx of esophageal CA, and chronic indwelling catheter, presenting to the ER with complaints of suprapubic pain. Pt presenting from Hospice care where they routinely change out his indwelling catheter monthly. He had this changed today but they were unable to change to place it in, they tried 3 times. Patient tachycardic in the 120 is likely due to pain. Patient afebrile, all other vital signs within normal limits. 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 docusate sodium 100 mg capsule 200 mg PO QPM PRN (Reason: constipation) Qty: 60 5RF ferrous sulfate [FeroSul] 325 mg (65 mg iron) tablet 325 mg PO QAM Qty: 30 7RF duloxetine 20 mg Capsule,Delayed Release(Dr/Ec) 20 mg PO BID Qty: 60 4RF mirtazapine 30 mg tablet 30 mg PO BEDTIME Qty: 90 1RF polyethylene glycol 3350 [Miralax] 17 gram powder in packet 17 g feeding tube DAILY 30 Days Qty: 30 12RF cholecalciferol (vitamin D3) 25 mcg (1,000 unit) tablet 25 mcg feeding tube DAILY 90 Days Qty: 90 3RF omeprazole magnesium 20 mg tablet,delayed release (DR/EC) See Rx Instructions PO DAILY 30 Days Qty: 30 5RF Rx Instructions: Give 1 tablet (can be crushed) via feeding tube QD omeprazole 20 mg capsule,delayed release(DR/EC) 20 mg PO DAILY Qty: 60 2RF Rx Instructions: Open capsule and mix contents with apple juice or orange juice. Shake well. After administering through G-tube, flush G-tube with 10 mL of water. Then clamp for 1 hour after. terazosin 5 mg capsule 5 mg PO DAILY 90 Days Qty: 90 1RF Rx Instructions: to be given via PEG tube atorvastatin 40 mg tablet 40 mg PO QPM 90 Days Qty: 90 0RF metoprolol tartrate 25 mg tablet 12.5 mg feeding tube QPM Qty: 30 5RF metformin 500 mg/5 mL solution 1,000 mg feeding tube BID 30 Days Qty: 600 5RF lorazepam 0.5 mg tablet 0.5 mg PO TID PRN (Reason: anxiety) 30 Days Qty: 90 0RF tramadol 50 mg tablet 50 mg PO Q6-8H PRN (Reason: pain) 30 Days Qty: 120 0RF (DME) lancets [TRUEplus Lancets] 33 gauge misc MISCELLANEOUS QID Qty: 200 4RF Rx Instructions: Test blood sugar 4 x per day as directed. Tussin DM Cough and Chest 5-100 mg/5 mL Liquid 10 ml PO Q4-8H PRN (Reason: Congestion) Qty: 300 3RF (DME) FreeStyle Lite Strips Strip MISCELLANEOUS QID (DME) pen needle, diabetic [Pentips] 32 gauge x 5/32 needle MISCELLANEOUS QID ondansetron 8 mg tablet,disintegrating 8 mg PO Q8H PRN (Reason: nausea) cefdinir 300 mg capsule 300 mg PO BID 10 Days Qty: 20 0RF Rx Instructions: Please open the capsules to administer through the G-tube hydrocodone-acetaminophen 5-325 mg tablet 1 tab PO Q4-6H PRN (Reason: pain) Qty: 30 0RF Rx Instructions: Partial Fill upon patient request. sulfamethoxazole-trimethoprim [Bactrim DS] 800-160 mg tablet 1 tab PO BID 3 Days Qty: 6 0RF insulin asp prt-insulin aspart [Novolog Mix 70-30FlexPen U-100] 100 unit/mL (70-30) insulin pen See Rx Instructions subcut BID Rx Instructions: 30 units in AM and 22 units in PM subcutaneously 2 times a day; 30 units in AM and 22 units in PM
--- NOTE | 2023-08-24 19:17 | PC.NURSE ---
Pt taken to exam room directly from triage, pt dtrs sts that pt has wolfe changed QM, today hospice attempted to change wolfe x3 w/o success. dtr stated that all that was coming out was blood. dtr stated they were sent here for a special catheter unsure if pt is to have a SPC? awaiting provider eval.
--- NOTE | 2023-08-24 19:40 | ED.MALEGU ---
HPI - Male Genitourinary General Chief complaint: Urogenital-Male Stated complaint: catheter issue Time Seen by Provider: 08/24/23 19:37 Source: patient and family Mode of arrival: ambulatory History of Present Illness HPI Narrative: THIS IS A 72 YEARS OLD PATIENT WITH HISTORY OF ADENOCARCINOMA OF THE ESOPHAGUS HISTORY OF DIABETES HISTORY OF INDWELLING CATHETER PRESENTED TO EMERGENCY ROOM BECAUSE THE VISITING NURSE COULD NO PLACE THE CATHETER, NOW WE PATIENT FEEL PRESSURE OVER THE BLADDER Onset (ago): hour(s) (6) Relieving factors: none Exacerbating factors: none Related Data Home Medications Medication Instructions Recorded Confirmed blood sugar diagnostic (FreeStyle 06/19/22 03/15/23 Lite Strips) pen needle, diabetic 32 gauge x 06/19/22 03/15/23 (Pentips) ondansetron 8 mg disintegrating 8 mg PO Q8H PRN nausea 03/27/23 03/27/23 tablet insulin aspar prot-insulin aspart See Rx Instructions subcut BID 03/30/23 100 unit/mL (70-30) subcutaneous pen (Novolog Mix 70-30FlexPen U-100) Previous Rx's Medication Instructions Recorded diabetic shoes #1 ea 08/12/22 docusate sodium 100 mg capsule 200 mg (2 x 100 mg) PO QPM PRN 03/24/23 constipation #60 ea ferrous sulfate 325 mg (65 mg 325 mg PO QAM #30 tabs 03/24/23 iron) tablet (FeroSul) hydrocodone 5 mg-acetaminophen 325 1 tab PO Q4-6H PRN pain #30 tabs 04/08/23 mg tablet dextromethorphan-guaifenesin 5 10 ml PO Q4-8H PRN Congestion #300 05/31/23 mg-100 mg/5 mL oral liquid (Tussin mL DM Cough and Chest) duloxetine 20 mg capsule,delayed 20 mg PO BID #60 caps 06/17/23 release mirtazapine 30 mg tablet 30 mg PO BEDTIME #90 tabs 07/19/23 cefdinir 300 mg capsule 300 mg PO BID 10 days #20 caps 07/21/23 sulfamethoxazole 800 1 tab PO BID 3 days #6 tabs 07/21/23 mg-trimethoprim 160 mg tablet (Bactrim DS) cholecalciferol (vitamin D3) 25 25 mcg feeding tube DAILY 90 days 07/25/23 mcg (1,000 unit) tablet #90 tabs omeprazole 20 mg capsule,delayed 20 mg PO DAILY #60 caps 07/25/23 release omeprazole magnesium 20 mg See Rx Instructions PO DAILY 30 07/25/23 tablet,delayed release days #30 tabs polyethylene glycol 3350 17 gram 17 g feeding tube DAILY 30 days 07/25/23 oral powder packet (Miralax) #30 ea terazosin 5 mg capsule 5 mg PO DAILY 90 days #90 caps 07/26/23 atorvastatin 40 mg tablet 40 mg PO QPM 90 days #90 tabs 07/29/23 metformin 500 mg/5 mL oral solution 1,000 mg (10 mL) feeding tube BID 07/29/23 30 days #600 mL metoprolol tartrate 25 mg tablet 12.5 mg (1/2 x 25 mg) feeding tube 07/29/23 QPM #30 tabs lorazepam 0.5 mg tablet 0.5 mg PO TID PRN anxiety 30 days 08/08/23 #90 tabs tramadol 50 mg tablet 50 mg PO Q6-8H PRN pain 30 days 08/17/23 #120 tabs lancets 33 gauge (TRUEplus Lancets) #200 ea 08/24/23 Allergies Allergy/AdvReac Type Severity Reaction Status Date / Time No Known Allergies Allergy Verified 04/18/23 09:04 Review of Systems Constitutional: Constitutional: Reports no additional constitutional complaints Cardiovascular: Cardiovascular: Reports no additional cardiovascular complaints Psychiatric: Psychiatric: Reports no additional psychiatric complaints [facility] Past Medical History Source: unable to obtain Medical History Gastrostomy tube in place (04/08/23) Port-A-Cath in place Suprapubic catheter HLD (hyperlipidemia) Depression Anxiety Constipation Benign essential hypertension Keratotic lesion Vitamin D deficiency [facility] (current) use of insulin Diabetes type 2, uncontrolled Surgical History History of esophagogastroduodenoscopy Adenocarcinoma of cardio-esophageal junction (~2018) History of left below knee amputation (~2018) History of atherectomy (~2018) Family History Family History Father Diabetes Hypertension Mother No problems noted. Social History Social History Household Members: Family Housing: House Do you presently have visiting nurse or other home services: No Alcohol intake: never Patient Tobacco Use Status: Never used Tobacco e-Cigarette/Vaping Use: Never Used Second Hand Smoke Exposure: No Advance Directives: Yes Advance Directives on File: Yes Advance Directives Date on File: 02/03/22 service: No Current occupational status: retired and disabled Cognitive needs: No (cane/wheelchair) Hearing needs: No Vision needs: Yes (glasses) Physical Exam Vital Signs: Vital Signs: Last Vital Signs Temp 98.3 F 08/24/23 18:20 Pulse 124 H 08/24/23 18:20 Resp 18 08/24/23 18:20 BP 125/74 08/24/23 18:20 Pulse Ox 100 08/24/23 18:20 O2 Del Method Room Air 08/24/23 18:20 BMI result Body Mass Index 20.5 Const: General: cooperative Nutritional Appearance: cachectic Orientation/consciousness: patient oriented x3 HEENT: Head: Yes normal to inspection Neck: Neck: Yes normal visual inspection Chest: Chest palpation & inspection: normal inspection of the chest Resp: Effort & Inspection: normal respiratory effort Auscultation: clear to auscultation bilaterally Cardio: Jugular venous distension: no JVD Rate: regular rate GI: Inspection: Yes normal to inspection and Yes other (G-TUBE IS IN PLACE) Skin: General skin exam: no rashes or lesions noted Lesions: no lesions Rashes: no rashes Neuro: General: patient oriented x3 Course Reevaluation(s) Reevaluation #1: RN WAS UNABLE TO PLACE A CATHETER I PLACED # 16 COUDE' THE CATHETER WITH GOOD URINE FLOW Time: 20:04 Medications Administered Discontinued Medications Generic Name Dose Route Start Last Admin Trade Name Freq PRN Reason Stop Dose Admin Lidocaine HCl 10 ml 08/24/23 19:48 08/24/23 19:59 Lidocaine Hcl 2 % Urojet 10 Ml Jel.Pf.Kathy TOPICAL 08/24/23 19:49 10 ml ONCE ONE Administration Medical Decision Making Medical Decision Making MDM Narrative: PATIENT PRESENTS TO THE EMERGENCY DEPARTMENT IN NEED OF RODRIGUEZ CATHETER Differential Diagnosis Differential Diagnoses: The differential diagnosis associated with the presentation includes PROSTATE OBSTRUCTION/URINARY RETENTION Admission/Observation Consideration of admission/observation: Escalation of care including admission/observation considered Independent Historian Clinical information obtained from an independent historian. History obtained from or confirmed by: Other (DAUGHTERS) Procedures Catheter Insertion (Urinary) Date of insertion: 08/24/23 Time of insertion: 20:04 Reason for placing indwelling catheter: Acute urinary retention Catheter type/location: Urethral Size (Gabonese): 16 Catheter balloon size (mL): 5 Results: successfully catheterized-immediate flow Procedure performed: without complications Discharge Plan Discharge Patient Disposition: Home, Self-Care Prescriptions: No Action (DME) diabetic shoes See Rx Instructions .Route .MEDSUPPLY Qty: 1 0RF Rx Instructions: extra depth orthopedic shoes ( 1 pair ) with customize heat molded multi density inner soles ( 3 pair) Dispense 1 Sig: As directed DX: And IDDM /polyneuropathy ( E11 0.42 ); hammertoe foot deformity ( M 20.41, and 20.42 ) pre ulcerative skin lesion ( L 85.1 ) 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 ) type 2 diabetes with polyneuropathy docusate sodium 100 mg capsule 200 mg PO QPM PRN (Reason: constipation) Qty: 60 5RF ferrous sulfate [FeroSul] 325 mg (65 mg iron) tablet 325 mg PO QAM Qty: 30 7RF duloxetine 20 mg Capsule,Delayed Release(Dr/Ec) 20 mg PO BID Qty: 60 4RF mirtazapine 30 mg tablet 30 mg PO BEDTIME Qty: 90 1RF polyethylene glycol 3350 [Miralax] 17 gram powder in packet 17 g feeding tube DAILY 30 Days Qty: 30 12RF cholecalciferol (vitamin D3) 25 mcg (1,000 unit) tablet 25 mcg feeding tube DAILY 90 Days Qty: 90 3RF omeprazole magnesium 20 mg tablet,delayed release (DR/EC) See Rx Instructions PO DAILY 30 Days Qty: 30 5RF Rx Instructions: Give 1 tablet (can be crushed) via feeding tube QD omeprazole 20 mg capsule,delayed release(DR/EC) 20 mg PO DAILY Qty: 60 2RF Rx Instructions: Open capsule and mix contents with apple juice or orange juice. Shake well. After administering through G-tube, flush G-tube with 10 mL of water. Then clamp for 1 hour after. terazosin 5 mg capsule 5 mg PO DAILY 90 Days Qty: 90 1RF Rx Instructions: to be given via PEG tube atorvastatin 40 mg tablet 40 mg PO QPM 90 Days Qty: 90 0RF metoprolol tartrate 25 mg tablet 12.5 mg feeding tube QPM Qty: 30 5RF metformin 500 mg/5 mL solution 1,000 mg feeding tube BID 30 Days Qty: 600 5RF lorazepam 0.5 mg tablet 0.5 mg PO TID PRN (Reason: anxiety) 30 Days Qty: 90 0RF tramadol 50 mg tablet 50 mg PO Q6-8H PRN (Reason: pain) 30 Days Qty: 120 0RF (DME) lancets [TRUEplus Lancets] 33 gauge misc MISCELLANEOUS QID Qty: 200 4RF Rx Instructions: Test blood sugar 4 x per day as directed. Tussin DM Cough and Chest 5-100 mg/5 mL Liquid 10 ml PO Q4-8H PRN (Reason: Congestion) Qty: 300 3RF (DME) FreeStyle Lite Strips Strip MISCELLANEOUS QID (DME) pen needle, diabetic [Pentips] 32 gauge x 5/32 needle MISCELLANEOUS QID ondansetron 8 mg tablet,disintegrating 8 mg PO Q8H PRN (Reason: nausea) cefdinir 300 mg capsule 300 mg PO BID 10 Days Qty: 20 0RF Rx Instructions: Please open the capsules to administer through the G-tube hydrocodone-acetaminophen 5-325 mg tablet 1 tab PO Q4-6H PRN (Reason: pain) Qty: 30 0RF Rx Instructions: Partial Fill upon patient request. sulfamethoxazole-trimethoprim [Bactrim DS] 800-160 mg tablet 1 tab PO BID 3 Days Qty: 6 0RF insulin asp prt-insulin aspart [Novolog Mix 70-30FlexPen U-100] 100 unit/mL (70-30) insulin pen See Rx Instructions subcut BID Rx Instructions: 30 units in AM and 22 units in PM subcutaneously 2 times a day; 30 units in AM and 22 units in PM
[2023-08-24] MEDS: Lidocaine HCl 2 % Urojet 10 ML JEL.PF.APP TOPICAL (19:59)
== END 2023-08-24 20:15 | disposition home or self-care (01) ==
PROVIDERS: Emergency Provider Emergency Medicine; PCP Internal Medicine
DX: R33.9 Retention of urine, unspecified (principal); E11.9 Type 2 diabetes mellitus without complications; I10 Essential (primary) hypertension; E78.5 Hyperlipidemia, unspecified; C15.9 Malignant neoplasm of esophagus, unspecified; Z93.1 Gastrostomy status; Z79.4 Long term (current) use of insulin; Z79.899 Other long term (current) drug therapy
CPT/HCPCS: 51702; 99282; 99284

== ENCOUNTER 2023-09-20 15:18 | Outpatient (AMB) | payer OTHER, SELFPAY ==
[2023-09-20 15:26] VITALS: BP 163/65; PULSE 115
--- NOTE | 2023-09-20 15:26 | A.OFFVIS_ITS ---
Intake Vital Signs 09/20/23 15:26 Weight 135 lb BP 163/65 H Blood Pressure Location Rt radial Position Sitting Pulse 115 H Intake Visit Reasons: G-tube assessment, ? needing to be changed Intake Note: Patient here to have g-tube area checked. VNA noticed discharge. Currently on abx for respiratory infection. 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 He has had a G-tube for several months time. He has exuberant granulation tissue at the access site. Feeding tube is otherwise working well. The daughter states the family has decided to no longer take chemotherapy or radiation therapy. 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 Social History Household Members: Family Housing: House Do you presently have visiting nurse or other home services: No Alcohol intake: never Patient Tobacco Use Status: Never used Tobacco e-Cigarette/Vaping Use: Never Used Second Hand Smoke Exposure: No Advance Directives Date on File: 02/03/22 service: No Current occupational status: retired and disabled Cognitive needs: No (cane/wheelchair) Hearing needs: No Vision needs: Yes (glasses) Physical Exam Vital Signs: Last Vital Signs Pulse 115 H 09/20/23 15:26 BP 163/65 H 09/20/23 15:26 GI Other: Patient has exuberant granulating tissue at the G-tube exit site. Area was prepped and cauterized with silver nitrate. Patient tolerated this well. Patient's family have been given local instructions, and will follow-up p.r.n.. Assessment & Plan Assessment & Plan (1) Exuberant granulation tissue: Code(s): L92.9 - Granulomatous disorder of the skin and subcutaneous tissue, unspecified Plan As noted above, family has been given local instructions and patient will follow-up p.r.n. Coding Level of Care Code Est Pt Level 4 (38934) Diagnoses Exuberant granulation tissue L92.9
== END 2023-09-20 16:17 | disposition home or self-care (01) ==
LOC: HO.HGS 15:18
PROVIDERS: PCP Internal Medicine; Visit Provider Surgery
DX: L92.9 Granulomatous disorder of the skin and subcutaneous tissue, unspecified (principal)
CPT/HCPCS: 99214

== ENCOUNTER → 2023-09-20 15:18 | Outpatient (BNVA) | payer OTHER, SELFPAY | PROVIDERS: PCP Internal Medicine; Visit Provider Surgery | DX: L92.9 Granulomatous disorder of the skin and subcutaneous tissue, unspecified (principal); Z43.1 Encounter for attention to gastrostomy | CPT/HCPCS: 99212 ==

== ENCOUNTER 2023-11-26 16:24 | Emergency (ER) | payer OTHER, SELFPAY ==
--- NOTE | ~2023-11-26 | XR_ITS ---
EXAMINATION: XR ABDOMEN KUB CLINICAL INDICATION: G-tube placement COMPARISON: None available. TECHNIQUE: AP view of the abdomen. FINDINGS: Contrast injection through indwelling gastrostomy tube demonstrates filling of the stomach and duodenum. No extra gastric leakage of contrast. Nonobstructive bowel gas pattern. Osseous structures are within normal limits. Multilevel degenerative changes of the lumbar spine. Visualized lungs are clear. XR/XR KUB IMPRESSION: Gastrostomy tube injection demonstrates contrast predominantly within the stomach with distal flow into the duodenum.
[2023-11-26 16:30] VITALS: BP 100/66; BP 110/66; PULSE 116; PULSE 120; RESP 16; TEMP 37; O2SAT 94; O2SAT 97; BMI 18.2
--- NOTE | 2023-11-26 16:44 | ED_ITS ---
HPI - General Adult General Chief complaint: General Medical Stated complaint: g tube dislodged Time Seen by Provider: 11/26/23 16:29 Source: patient, family, RN notes reviewed and old records reviewed Mode of arrival: EMS Limitations: no limitations History of Present Illness HPI narrative: 73-year-old male presents for evaluation after a treat to dislodgement. Patient had a G-tube placed in March of last year by Dr. Mario It appears to be a 24 Indonesian G-tube that was placed He denies any pain He has some oozing from the area Was trying to get up to go to the bathroom when G-tube was accidentally dislodged Per family the G-tube was dislodged about 1 hour prior to arrival Related Data Home Medications Medication Instructions Recorded Confirmed blood sugar diagnostic (FreeStyle 06/19/22 03/15/23 Lite Strips) ondansetron 8 mg disintegrating 8 mg PO Q8H PRN nausea 03/27/23 03/27/23 tablet Previous Rx's Medication Instructions Recorded diabetic shoes #1 ea 08/12/22 docusate sodium 100 mg capsule 200 mg (2 x 100 mg) PO QPM PRN 03/24/23 constipation #60 ea ferrous sulfate 325 mg (65 mg 325 mg PO QAM #30 tabs 03/24/23 iron) tablet (FeroSul) hydrocodone 5 mg-acetaminophen 325 1 tab PO Q4-6H PRN pain #30 tabs 04/08/23 mg tablet dextromethorphan-guaifenesin 5 10 ml PO Q4-8H PRN Congestion #300 05/31/23 mg-100 mg/5 mL oral liquid (Tussin mL DM Cough and Chest) duloxetine 20 mg capsule,delayed 20 mg PO BID #60 caps 06/17/23 release mirtazapine 30 mg tablet 30 mg PO BEDTIME #90 tabs 07/19/23 cefdinir 300 mg capsule 300 mg PO BID 10 days #20 caps 07/21/23 sulfamethoxazole 800 1 tab PO BID 3 days #6 tabs 07/21/23 mg-trimethoprim 160 mg tablet (Bactrim DS) cholecalciferol (vitamin D3) 25 25 mcg feeding tube DAILY 90 days 07/25/23 mcg (1,000 unit) tablet #90 tabs omeprazole magnesium 20 mg See Rx Instructions PO DAILY 30 07/25/23 tablet,delayed release days #30 tabs polyethylene glycol 3350 17 gram 17 g feeding tube DAILY 30 days 07/25/23 oral powder packet (Miralax) #30 ea terazosin 5 mg capsule 5 mg PO DAILY 90 days #90 caps 07/26/23 atorvastatin 40 mg tablet 40 mg PO QPM 90 days #90 tabs 07/29/23 metformin 500 mg/5 mL oral solution 1,000 mg (10 mL) feeding tube BID 07/29/23 30 days #600 mL metoprolol tartrate 25 mg tablet 12.5 mg (1/2 x 25 mg) feeding tube 07/29/23 QPM #30 tabs lancets 33 gauge (TRUEplus Lancets) #200 ea 08/24/23 pen needle, diabetic 32 gauge x #100 ea 09/07/23 (Pentips) tramadol 50 mg tablet 50 mg PO Q6-8H PRN pain 30 days 09/19/23 #120 tabs flash glucose sensor (FreeStyle #2 ea 09/20/23 Nate 2 Sensor kit) lorazepam 0.5 mg tablet 0.5 mg PO TID PRN anxiety 30 days 10/10/23 #90 tabs omeprazole 20 mg capsule,delayed 20 mg PO DAILY #60 caps 10/10/23 release flash glucose scanning reader #1 ea 10/11/23 (FreeStyle Nate 2 [place]) lidocaine 5 % topical patch 1 patch topical DAILY pain 30 days 10/14/23 #30 ea insulin aspar prot-insulin aspart See Rx Instructions subcut BID #30 11/09/23 100 unit/mL (70-30) subcutaneous mL pen (Novolog Mix 70-30FlexPen U-100) Allergies Allergy/AdvReac Type Severity Reaction Status Date / Time No Known Allergies Allergy Verified 09/20/23 15:27 Review of Systems Constitutional: Constitutional: Denies chills and Denies fever(s) Cardiovascular: Cardiovascular: Denies chest pain Gastrointestinal: Gastrointestinal: Denies abdominal pain PMFSH Past Medical History Onset Date is defined in the Problem List Problems that require an onset date and time if occurred within 24 hrs of arrival to the ED Aortic Dissection and Rupture; Neurologic impairment; Cardiopulmonary Arrest; Endotracheal Intubation; Insertion or Replacement of Mechanical Circulatory Assist Device Medical History Gastrostomy tube in place (04/08/23) Port-A-Cath in place Suprapubic catheter HLD (hyperlipidemia) Depression Anxiety Constipation Benign essential hypertension Keratotic lesion Vitamin D deficiency alf (current) use of insulin Diabetes type 2, uncontrolled Surgical History History of esophagogastroduodenoscopy Adenocarcinoma of cardio-esophageal junction (~2018) History of left below knee amputation (~2018) History of atherectomy (~2018) Family History Family History Father Diabetes Hypertension Mother No problems noted. Social History Social History Household Members: Family Housing: House Do you presently have visiting nurse or other home services: No Alcohol intake: never Comment: left BKA w/prosthesis Patient Tobacco Use Status: Never used Tobacco Smoked in Last 30 Days: No e-Cigarette/Vaping Use: Never Used Second Hand Smoke Exposure: No Use of substances other than those prescribed or required for medical reasons: No Advance Directives: Yes Advance Directives on File: Yes Advance Directives Date on File: 02/03/22 service: No Current occupational status: retired and disabled Cognitive needs: No (cane/wheelchair) Hearing needs: No Vision needs: Yes (glasses) Physical Exam ED Vital Signs: Vital Signs - 24 hr 11/26/23 16:30 Temperature 98.6 F Pulse Rate 116 H Respiratory Rate 16 Blood Pressure 110/66 Pulse Oximetry 94 Oxygen Delivery Method Room Air BMI result Body Mass Index 18.2 Const General: healthy appearing, comfortable, no acute distress, alert and awake Nutritional Appearance: well nourished Orientation/consciousness: patient oriented x3 HENMT Head: Yes normocephalic and Yes atraumatic Eyes Eyelids: Yes eyelids normal Conjunctivae: conjunctivae normal Sclerae: sclerae normal Corneas: corneas normal Pupils: Equal, round and reactive pupils present EOM: EOMs intact bilaterally Neck Neck: Yes full ROM Resp Effort & Inspection: normal respiratory effort, able to speak in complete sentences and not labored GI Other: G-tube dislodged from left upper quadrant Inspection: No G-tube present Skin General skin exam: elasticity normal Neuro General: patient oriented x3 Cranial nerves: Yes Equal, round and reactive pupils present and Yes Bilaterally intact EOM present Cognition (Neuro): normal cognition Course Course Course Narrative: Unfortunately we do not have any G tubes larger than 22 Indonesian. A 22 Indonesian G- tube was inserted. Will get a KUB with Gastrografin to confirm placement Reevaluation(s) Reevaluation #1: KUB x-ray appears to show proper placement of G-tube. Patient is stable for discharge Time: 17:59 Medications Administered Discontinued Medications Generic Name Dose Route Start Last Admin Trade Name Freq PRN Reason Stop Dose Admin Diatrizoate Meglum/Diatrizoate Sod 30 ml 11/26/23 17:49 11/26/23 17:49 Diatrizoate Meglumine, Sodium 30 Ml Solution PO 11/26/23 17:50 30 ml ONCE ONE Administration Medical Decision Making Medical Decision Making MDM Narrative: Will attempt to locate a 24 Indonesian G-tube to be placed. Differential Diagnosis Differential Diagnoses: The differential diagnosis associated with the presentation includes G-tube dislodged Stomach cancer Malnutrition GJ tube dislodged Discharge Plan Discharge Clinical Impression: Dislodged gastrostomy tube Patient Disposition: Home, Self-Care Additional Instructions: You came in with a 24 Indonesian G-tube Unfortunately we do not have any size is larger than 22 Indonesian, therefore this was inserted. Follow-up with Dr. Mario and let him know about the change Prescriptions: No Action (DME) diabetic shoes See Rx Instructions .Route .MEDSUPPLY Qty: 1 0RF Rx Instructions: extra depth orthopedic shoes ( 1 pair ) with customize heat molded multi density inner soles ( 3 pair) Dispense 1 Sig: As directed DX: And IDDM /polyneuropathy ( E11 0.42 ); hammertoe foot deformity ( M 20.41, and 20.42 ) pre ulcerative skin lesion ( L 85.1 ) 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 ) type 2 diabetes with polyneuropathy docusate sodium 100 mg capsule 200 mg PO QPM PRN (Reason: constipation) Qty: 60 5RF ferrous sulfate [FeroSul] 325 mg (65 mg iron) tablet 325 mg PO QAM Qty: 30 7RF duloxetine 20 mg Capsule,Delayed Release(Dr/Ec) 20 mg PO BID Qty: 60 4RF mirtazapine 30 mg tablet 30 mg PO BEDTIME Qty: 90 1RF polyethylene glycol 3350 [Miralax] 17 gram powder in packet 17 g feeding tube DAILY 30 Days Qty: 30 12RF cholecalciferol (vitamin D3) 25 mcg (1,000 unit) tablet 25 mcg feeding tube DAILY 90 Days Qty: 90 3RF omeprazole magnesium 20 mg tablet,delayed release (DR/EC) See Rx Instructions PO DAILY 30 Days Qty: 30 5RF Rx Instructions: Give 1 tablet (can be crushed) via feeding tube QD terazosin 5 mg capsule 5 mg PO DAILY 90 Days Qty: 90 1RF Rx Instructions: to be given via PEG tube atorvastatin 40 mg tablet 40 mg PO QPM 90 Days Qty: 90 0RF metoprolol tartrate 25 mg tablet 12.5 mg feeding tube QPM Qty: 30 5RF metformin 500 mg/5 mL solution 1,000 mg feeding tube BID 30 Days Qty: 600 5RF (DME) lancets [TRUEplus Lancets] 33 gauge misc MISCELLANEOUS QID Qty: 200 4RF Rx Instructions: Test blood sugar 4 x per day as directed. (DME) pen needle, diabetic [Pentips] 32 gauge x /32 needle See Rx Instructions .ROUTE .COMPLEX Qty: 100 11RF Dose Instruction: USE FOUR TIMES DAILY Rx Instructions: USE FOUR TIMES DAILY tramadol 50 mg tablet 50 mg PO Q6-8H PRN (Reason: pain) 30 Days Qty: 120 0RF (DME) FreeStyle Nate 2 Sensor Kit See Rx Instructions .Route Qty: 2 5RF Rx Instructions: As directed change every 14 days (DME) FreeStyle Nate 2 [place] [facility] [place] See Rx Instructions .Route Qty: 1 0RF Rx Instructions: As directed lidocaine 5 % adhesive patch,medicated 1 patch topical DAILY 30 Days Qty: 30 3RF Rx Instructions: leave on most painful area for up to 12 hrs insulin asp prt-insulin aspart [Novolog Mix 70-30FlexPen U-100] 100 unit/mL (70-30) insulin pen See Rx Instructions subcut BID Qty: 30 6RF Rx Instructions: Inject 30 units SQ Q AM and 22 units SQ Q PM subcutaneously 2 times a day; Tussin DM Cough and Chest 5-100 mg/5 mL Liquid 10 ml PO Q4-8H PRN (Reason: Congestion) Qty: 300 3RF omeprazole 20 mg capsule,delayed release(DR/EC) 20 mg PO DAILY Qty: 60 2RF Rx Instructions: Open capsule and mix contents with apple juice or orange juice. Shake well. After administering through G-tube, flush G-tube with 10 mL of water. Then clamp for 1 hour after. lorazepam 0.5 mg tablet 0.5 mg PO TID PRN (Reason: anxiety) 30 Days Qty: 90 0RF (DME) FreeStyle Lite Strips Strip MISCELLANEOUS QID ondansetron 8 mg tablet,disintegrating 8 mg PO Q8H PRN (Reason: nausea) cefdinir 300 mg capsule 300 mg PO BID 10 Days Qty: 20 0RF Rx Instructions: Please open the capsules to administer through the G-tube hydrocodone-acetaminophen 5-325 mg tablet 1 tab PO Q4-6H PRN (Reason: pain) Qty: 30 0RF Rx Instructions: Partial Fill upon patient request. sulfamethoxazole-trimethoprim [Bactrim DS] 800-160 mg tablet 1 tab PO BID 3 Days Qty: 6 0RF
[2023-11-26] MEDS: Diatrizoate Meglumine, Sodium 30 ML SOLUTION PO (17:49)
--- NOTE | 2023-11-26 18:52 | PC.NURSE ---
when t/w went in to help pt to wheelchair to be discharged, pt found saturated with gastric contents. g-tube was not locked. pt cleaned up and placed in wheelchair with total 2 assist.
== END 2023-11-26 18:53 | disposition home or self-care (01) ==
PROVIDERS: Emergency Provider Internal Medicine; PCP Internal Medicine
DX: K94.23 Gastrostomy malfunction (principal); E11.9 Type 2 diabetes mellitus without complications; I10 Essential (primary) hypertension; E78.5 Hyperlipidemia, unspecified; Z79.4 Long term (current) use of insulin; Z79.02 Long term (current) use of antithrombotics/antiplatelets; Z79.899 Other long term (current) drug therapy
CPT/HCPCS: 43762; 74018; 99284